=== PATIENT | female | born 1960 | race Caucasian/White ===

== ENCOUNTER 2017-03-03 23:29 | Inpatient (IN) | payer MEDICARE, MEDICAID ==
[~2017-03-03] VITALS: Ht 182.9 cm; Wt 153.3 kg
[~2017-03-03 23:29] MED LIST: AMBI10TA PO; ASPI81 PO; CARD240C6 PO; CELL500T PO; FAMO1TAB36 PO; FLUTI44I INH; HUMA100I SC; HYDR-3533 PO; INSU100V2 SQ; LORA-474 PO; METO100T PO; NEOR100 PO; OS-CTAB3 PO; POTA-243 PO; PRED5 PO; RANI150T PO; SALM50I INH; SERT100 PO; SIMV20 PO; TAB-TAB PO; THEOPHYLLINE PO; VENTAER INH; Z.0.OXYGEN INH
[2017-03-03 23:31] VITALS: BP 181/102; PULSE 58; RESP 18; TEMP 98.6; O2SAT 100
[2017-03-03 23:40] VITALS: RESP 18; O2SAT 96
[2017-03-03] MEDS ORDERED: SODIUM CHLORIDE 0.9% FLUSH 10 ML FLUSH IV FLUSH PRN (23:45)
--- NOTE | 2017-03-03 23:56 | PD ---
HPI Chief Complaint: Flank/Kidney Pain Time Seen by Provider: 23:47 Travel History International Travel<30 days: No Contact w/Intl Traveler<30days: No Traveled to known affect area: No History of Present Illness HPI 56-year-old female with history of renal transplant, rheumatoid arthritis, previous cholecystectomy, hypertension, multiple medical issues, presents to the ER today for 1 day history of right flank pains that she currently states that 10 out of 10. She states this started on its own and she has been nauseous. She denies any fevers, vomiting, diarrhea, urinary symptoms, or any other issues. Modifying Factors: None Associated Signs & Symptoms: Right flank pain Risk Factors: Renal transplant PFSH Past Medical History Arthritis: Yes (BACK) Asthma: Yes Autoimmune Disease: Yes (KIDNEY TRANSPLANT) Blood Disorders: No Anxiety: No Depression: Yes Heart Rhythm Problems: No Cancer: No Cardiovascular Problems: Yes High Cholesterol: Yes Chemotherapy: No Chest Pain: No Congestive Heart Failure: No COPD: No Diabetes: Yes Endocrine: Yes Glaucoma: No Genitourinary: Yes Hypertension: Yes Kidney Stones: No Musculoskeletal: Yes Neurologic: No Psychiatric: Yes Reproductive: No Respiratory: Yes Myocardial Infarction: No Radiation Therapy: No Renal Failure: Yes (WITH KIDNEY TRANSPLANT IN 2000) Sleep Apnea: Yes Thyroid Disease: No : 2 Para: 1 Miscarriage: 1 Past Surgical History Abdominal Surgery: Yes (RIGHT KIDNEY TRANSPLANT) AICD: No Cardiac Surgery: Yes (HEART CATHS) Section: Yes Cholecystectomy: Yes Ear Surgery: No Endocrine Surgery: No Eye Surgery: Yes (2001 CATARACTS BOTH EYES) Genitourinary Surgery: No Gynecologic Surgery: Yes (RIGHT KIDNEY TRANSPLANT) Neurologic Surgery: Yes (BACK LUM EVANS ) Oral Surgery: No Pacemaker: No Thoracic Surgery: No Tonsillectomy: Yes Other Surgery: Yes (KIDNEY TRANSPLANT) Social History Alcohol Use: Yes (SOCIALLY) Tobacco Use: No Substance Use: No Allergies-Medications (Allergen,Severity, Reaction): Coded Allergies: Adhesives (Verified Allergy, Severe, SILK TAPE, 03/03/17) Uncoded Allergies: SILK TAPE (Allergy, Mild, 03/19/05) NSAIDS (Adverse Reaction, Severe, 06/21/10) CANNOT TAKE THEM WITH KIDNEY TRANSPLANT Reported Meds & Prescriptions Reported Meds & Active Scripts Active Reported Flovent Hfa 10.6 GM Inh (Fluticasone Propionate) 44 Mcg/Act Inh 2 Puff INH BID Use daily at the same time. Serevent Diskus Inh (Salmeterol Xinafoate) 50 Mcg/Act Aero 50 Mcg INH BID Ventolin Hfa 18 GM Inh (Albuterol Sulfate) 90 Mcg/Act Aer 2 Puff INH Q4H PRN Fish Oil 1,000 mg Softgel ([place]-3 Fatty Acids/Fish Oil) 1 Each Capsule Magnesium 400 Mg Tab 400 Mg PO HS Lasix (Furosemide) 20 Mg Tab 20 Mg PO DAILY Potassium Chloride ER (Potassium Chloride) 20 Meq Tab 20 Meq PO DAILY Calcium 500 + Vit D Caplet (Calcium Carbonate/Vitamin D3) 1 Each Tablet Womens Daily Formula (Multiple Vitamins W/ Minerals) 1 Tab Tab Aspir-81 (Aspirin) 81 Mg Tabdr Zocor (Simvastatin) 20 Mg Tab 20 Mg PO HS Cardizem CD 24 HR (Diltiazem CD 24 HR) 240 Mg Caper 240 Mg PO HS Pepcid (Famotidine) 20 Mg Tab 20 Mg PO BID Lopressor (Metoprolol Tartrate) 50 Mg Tab 50 Mg PO BID Zoloft (Sertraline HCl) 100 Mg Tab 100 Mg PO BID Prednisone 5 Mg Tab 5 Mg PO DAILY Cellcept (Mycophenolate Mofetil) 500 Mg Tab 500 Mg PO BID Neoral (Cyclosporine (Modified)) 100 Mg Cap 125 Mg PO Humulin N Inj (Insulin Human NPH) 1,000 Unit/10 Ml Vial 35 Units SQ Humalog Inj (Insulin Human Lispro) 1,000 Unit/10 Ml Vial 30 Units SQ TIDAC Review of Systems Except as stated in HPI: all other systems reviewed are Neg Physical Exam Narrative GENERAL: Well-developed obese middle age white female patient currently in moderate distress. Awake and oriented 3. SKIN: Focused skin assessment warm/dry. HEAD: Atraumatic. Normocephalic. EYES: Pupils equal and round. No scleral icterus. No injection or drainage. ENT: No nasal bleeding or discharge. Mucous membranes pink and moist. NECK: Trachea midline. No JVD. CARDIOVASCULAR: Regular rate and rhythm. No murmur appreciated. RESPIRATORY: No accessory muscle use. Clear to auscultation. Breath sounds equal bilaterally. GASTROINTESTINAL: Abdomen soft, non-tender, nondistended. Hepatic and splenic margins not palpable. BACK: Right CVA tenderness. No rash. No point tenderness on palpation of the spine. MUSCULOSKELETAL: No obvious deformities. No clubbing. No cyanosis. No edema. NEUROLOGICAL: Awake and alert. No obvious cranial nerve deficits. Motor grossly within normal limits. Normal speech. PSYCHIATRIC: Appropriate mood and affect; insight and judgment normal. Data Data Last Documented VS Vital Signs Date Time Temp Pulse Resp B/P Pulse Ox O2 Delivery O2 Flow Rate FiO2 03/04/17 01:26 59 18 161/71 98 Room Air 03/03/17 23:31 98.6 Orders Complete Blood Count With Diff (03/03/17 23:38) Comprehensive Metabolic Panel (03/03/17 23:38) Urinalysis - C+S If Indicated (03/03/17 23:38) Iv Access Insert/Monitor (03/03/17 23:38) Ecg Monitoring (03/03/17 23:38) Oximetry (03/03/17 23:38) Sodium Chloride 0.9% Flush (Ns Flush) (03/03/17 23:45) Sodium Chlorid 0.9% 500 Ml Inj (Ns 500 M (03/04/17 00:00) Ondansetron Inj (Zofran Inj) (03/04/17 00:00) Hydromorphone Pf Inj (Dilaudid Pf Inj) (03/04/17 00:00) Ct Abd/Pel W/O Iv Contrast (03/04/17 00:22) Hydromorphone Pf Inj (Dilaudid Pf Inj) (03/04/17 03:00) Labs Laboratory Tests Test 03/03/17 23:48 White Blood Count 12.3 TH/MM3 Red Blood Count 3.09 MIL/MM3 Hemoglobin 8.8 GM/DL Hematocrit 26.8 % Mean Corpuscular Volume 86.6 FL Mean Corpuscular Hemoglobin 28.6 PG Mean Corpuscular Hemoglobin 33.0 % Concent Red Cell Distribution Width 13.1 % Platelet Count 224 TH/MM3 Mean Platelet Volume 7.8 FL Neutrophils (%) (Auto) 79.2 % Lymphocytes (%) (Auto) 11.2 % Monocytes (%) (Auto) 7.5 % Eosinophils (%) (Auto) 1.2 % Basophils (%) (Auto) 0.9 % Neutrophils # (Auto) 9.7 TH/MM3 Lymphocytes # (Auto) 1.4 TH/MM3 Monocytes # (Auto) 0.9 TH/MM3 Eosinophils # (Auto) 0.1 TH/MM3 Basophils # (Auto) 0.1 TH/MM3 CBC Comment DIFF FINAL Differential Comment Sodium Level 140 MEQ/L Potassium Level 4.6 MEQ/L Chloride Level 105 MEQ/L Carbon Dioxide Level 29.8 MEQ/L Anion Gap 5 MEQ/L Blood Urea Nitrogen 49 MG/DL Creatinine 2.20 MG/DL Estimat Glomerular Filtration 23 ML/MIN Rate Random Glucose 85 MG/DL Calcium Level 9.3 MG/DL Total Bilirubin 0.2 MG/DL Aspartate Amino Transf 6 U/L (AST/SGOT) Alanine Aminotransferase 13 U/L (ALT/SGPT) Alkaline Phosphatase 92 U/L Total Protein 7.0 GM/DL Albumin 3.1 GM/DL MDM Medical Decision Making Medical Screen Exam Complete: Yes Emergency Medical Condition: Yes Medical Record Reviewed: Yes Interpretation(s) Laboratory Tests Test 03/03/17 23:48 White Blood Count 12.3 TH/MM3 (4.0-11.0) Red Blood Count 3.09 MIL/MM3 (4.00-5.30) Hemoglobin 8.8 GM/DL (11.6-15.3) Hematocrit 26.8 % (35.0-46.0) Neutrophils (%) (Auto) 79.2 % (16.0-70.0) Neutrophils # (Auto) 9.7 TH/MM3 (1.8-7.7) Blood Urea Nitrogen 49 MG/DL (7-18) Creatinine 2.20 MG/DL (0.50-1.00) Estimat Glomerular Filtration 23 ML/MIN (>89) Rate Aspartate Amino Transf 6 U/L (15-37) (AST/SGOT) Albumin 3.1 GM/DL (3.4-5.0) Last 24 hours Impressions Abdomen/Pelvis CT 03/04/17 0022 Signed Impressions: Service Date/Time: Saturday, March 04, 2017 01:39 - CONCLUSION: Multiple masses throughout both the [place] kidneys and the transplant kidney. The density of the mass in the right [place] kidney is concerning for a solid mass. An outpatient renal ultrasound is recommended. Unremarkable bowel gas pattern without obvious etiology for abdominal pain. Cam Cristina MD Differential Diagnosis Right flank painsrenal colic versus pyelonephritis versus gastroenteritis versus musculoskeletal versus other acute intra-abdominal processes Narrative Course Lab work shows worsening renal function. She was given Dilaudid and IV fluids and Zofran in the ER. On reevaluation at 3 AM, she is complaining worsening pain and was given a second dose of Dilaudid. Her CAT scan is showing masses in both [place] kidneys and the transplant kidney. There is concern that the renal function may be worsening secondary to this issue as well and this is likely the cause of her pain. At this point, case has been discussed with Dr. Castano for admission as an observation for further treatment and pain control. Diagnosis Primary Impression: Bilateral renal masses Additional Impression: Renal mass of kidney transplant Admitting Information Admitting Physician Requests: Admit Kenny May MD Mar 03, 2017 23:55
[2017-03-04] VITALS (7 sets, daily range): BP systolic 153–197; BP diastolic 70–80; PULSE 50–63; RESP 18–20; TEMP 96.9–98.9; O2SAT 94–100
[2017-03-04] MEDS ORDERED: SODIUM CHLORID 0.9% 500 ML INJ 500 ML IV ONE
[2017-03-04] MEDS ORDERED: ONDANSETRON HCL 4 MG/2 ML VIAL IV PUSH ONE
[2017-03-04 00:04] LABS: AUTOMATED NEUTROPHIL # 9.7 TH/MM3 (1.8-7.7); BASOPHIL # 0.1 TH/MM3 (0-0.2); BASOPHIL % 0.9 % (0.0-2.0); EOSINOPHIL # 0.1 TH/MM3 (0-0.4); EOSINOPHIL % 1.2 % (0.0-4.0); HEMATOCRIT 26.8 % (35.0-46.0); HEMO FLAGS DIFF FINAL; LYMPH % 11.2 % (9.0-44.0); LYMPHOCYTE # 1.4 TH/MM3 (1.0-4.8); MEAN CELL VOLUME 86.6 FL (80.0-100.0); MEAN CORPUSCULAR HEMOGLOBIN 28.6 PG (27.0-34.0); MONO % 7.5 % (0.0-8.0); NEUT % 79.2 % (16.0-70.0); PLATELET COUNT 224 TH/MM3 (150-450); RED BLOOD COUNT 3.09 MIL/MM3 (4.00-5.30); RED CELL DISTRIBUTION WIDTH 13.1 % (11.6-17.2); WHITE BLOOD COUNT 12.3 TH/MM3 (4.0-11.0)
[2017-03-04] MEDS ORDERED: SALM50I INH (00:09)
[2017-03-04] MEDS ORDERED: OMEG1CAP73 (00:09)
[2017-03-04] MEDS ORDERED: INSU100V3 SQ (00:09)
[2017-03-04] MEDS ORDERED: CALCTAB25 (00:09)
[2017-03-04] MEDS ORDERED: FLUTI44I INH (00:09)
[2017-03-04] MEDS ORDERED: CARD240C6 PO (00:09)
[2017-03-04] MEDS ORDERED: NEOR100 PO (00:09)
[2017-03-04] MEDS ORDERED: PRED5TAB PO (00:09)
[2017-03-04] MEDS ORDERED: FAMO1TAB37 PO (00:09)
[2017-03-04] MEDS ORDERED: METO-309 PO (00:09)
[2017-03-04] MEDS ORDERED: FURO1TAB62 PO (00:09)
[2017-03-04] MEDS ORDERED: ASPI81TA81 (00:09)
[2017-03-04] MEDS ORDERED: WOMETAB2 (00:09)
[2017-03-04] MEDS ORDERED: VENTAER INH (00:09)
[2017-03-04] MEDS ORDERED: MYCO500 PO (00:09)
[2017-03-04] MEDS ORDERED: POTA-163 PO (00:09)
[2017-03-04] MEDS ORDERED: ZOLO100T PO ×2 (00:09→10:00)
[2017-03-04] MEDS ORDERED: HUMALOG SQ (00:09)
[2017-03-04] MEDS ORDERED: ZOCO20TA PO (00:09)
[2017-03-04] MEDS ORDERED: MAGN1TAB14 PO (00:09)
[2017-03-04 00:19] LABS: ALT (GPT) 13 U/L (10-53); ANION GAP 5 MEQ/L (5-15); AST (GOT) 6 U/L (15-37); BICARBONATE 29.8 MEQ/L (21.0-32.0); BLOOD UREA NITROGEN 49 MG/DL (7-18); CHLORIDE 105 MEQ/L (98-107); GLOMERULAR FILTRATION RATE 23 ML/MIN (>89); POTASSIUM 4.6 MEQ/L (3.5-5.1); SODIUM (NA) 140 MEQ/L (136-145)
[2017-03-04 00:21] LABS: ALKALINE PHOSPHATASE 92 U/L (45-117); TOTAL BILIRUBIN ADULT 0.2 MG/DL (0.2-1.0)
--- NOTE | 2017-03-04 02:15 | RADRPT ---
EXAM DATE/TIME: 03/04/2017 01:39 [facility] COMPARISON: CT ABDOMEN & PELVIS W/O CONTRAST, June 18, 2010, 6:37. INDICATIONS : Abdominal pain. ORAL CONTRAST: No oral contrast ingested. RADIATION DOSE: 31.70 CTDIvol (mGy) ; Patient body habitus; Patient motion; Patient positioning MEDICAL HISTORY : Hypertension. SURGICAL HISTORY : Renal transplant. ENCOUNTER: Initial ACUITY: 1 day PAIN SCALE: 8/10 LOCATION: abdomen TECHNIQUE: Volumetric scanning of the abdomen and pelvis was performed. Using automated exposure control and ad justment of the mA and/or kV according to patient size, radiation dose was kept as low as reasonably achievable to obtain optimal diagnostic quality images. DICOM format image data is available electro nically for review and comparison. FINDINGS: LOWER LUNGS: The visualized lower lungs are clear. LIVER: Homogeneous density without lesion. There is no dilation of the biliary tree. Status post cholecyste ctomy. SPLEEN: Normal size without lesion. PANCREAS: Within normal limits. KIDNEYS: Both of the [place] kidneys are small and atrophic. Questional solid mass arising from the anterior as pect of the right kidney measuring 5.1 x 5.4 cm. Some nodularity of the left renal cortex could also be a solid mass. There is a prominent possible cyst in the transplant kidney. There is no evidence of hydronephrosis of the transplant. ADRENAL GLANDS: Within normal limits. VASCULAR: There is no aortic aneurysm. BOWEL/MESENTERY: The stomach, small bowel, and colon demonstrate no acute abnormality. There is no free intraperitone al air or fluid. ABDOMINAL WALL: Within normal limits. RETROPERITONEUM: There is no lymphadenopathy. BLADDER: No wall thickening or mass. REPRODUCTIVE: Lobulated uterus presumably leiomyoma INGUINAL: There is no lymphadenopathy or hernia. MUSCULOSKELETAL: Within normal limits for patient age. CONCLUSION: Multiple masses throughout both the [place] kidneys and the transplant kidney. The density of the mass in the right [place] kidney is concerning for a solid mass. An outpatient renal ultrasound is recomme nded. Unremarkable bowel gas pattern without obvious etiology for abdominal pain. Cam Cristina MD on March 04, 2017 at 2:10 Board Certified Radiologist. This report was verified electronically.
[2017-03-04] MEDS ORDERED: MAGNESIUM HYDROXIDE SUSP 30 ML CUP PO PRN (03:00)
[2017-03-04] MEDS ORDERED: SODIUM CHLORIDE 0.9% FLUSH 10 ML FLUSH IV FLUSH PRN (03:00)
[2017-03-04] MEDS ORDERED: BISACODYL 10 MG SUPP RECTAL PRN (03:00)
[2017-03-04] MEDS ORDERED: ACETAMINOPHEN/HYDROcodone 325 MG/5 MG TAB PO PRN (03:00)
[2017-03-04] MEDS ORDERED: ONDANSETRON HCL 4 MG/2 ML VIAL IVP PRN (03:00)
[2017-03-04] MEDS ORDERED: ACETAMINOPHEN 325 MG TAB PO PRN (03:00)
[2017-03-04] MEDS ORDERED: HYDROmorphone HCL PF 1 MG/ML VIAL IV PUSH ONE ×2 (03:00)
[2017-03-04] MEDS ORDERED: SENNOSIDES 8.6 MG TAB PO PRN (03:00)
[2017-03-04] MEDS ORDERED: DEXTROSE 50% IN WATER 50 ML VIAL(D50) IV PRN (03:00)
[2017-03-04] MEDS ORDERED: GLUCAGON 1 MG/ML VIAL OTHER PRN (03:00)
[2017-03-04] MEDS ORDERED: LACTULOSE SYRUP 20 GM/30 ML CUP PO PRN (03:00)
[2017-03-04] MEDS ORDERED: ALBUTEROL SULFATE 90 MCG/ACT HFA 18 GM INHALER INH PRN (03:30)
[2017-03-04 03:41] LABS: BACTERIA, URINE MOD /hpf; BLOOD, URINE SMALL (NEG); COMMENT (UR) CULTURE INDICATED; CULTURE IF INDICATED CULTURE INDICATED; GLUCOSE,URINE NEG (NEG); HYALINE CAST, URINE 2 /lpf (RARE); KETONE, URINE NEG (NEG); NITRITE,URINE NEG (NEG); PH, URINE 5.5 (5.0-8.5); SQUAMOUS EPITHELIAL CELL URINE <1 /hpf (0-5); URINE COLOR LIGHT-YELLOW (YELLW/STRAW)
[2017-03-04] MEDS: SODIUM CHLOR 0.9% 1000 ML INJ 1,000 ML IV SCH ×3 (03:56→22:55)
--- NOTE | 2017-03-04 04:13 | HHI.HP ---
[facility] Service [facility] Primary Care Physician Iván Becerra MD Admission Diagnosis dehydration/renal masses/intractable abdominal pain Diagnoses: (1) Intractable pain Diagnosis: Principal (2) Bilateral renal masses Diagnosis: Principal (3) EDITH (acute kidney injury) Diagnosis: Principal (4) H/O kidney transplant Diagnosis: Principal (5) Leukocytosis Diagnosis: Principal (6) HTN (hypertension) Diagnosis: Principal (7) Anemia Diagnosis: Principal (8) UTI (urinary tract infection) Diagnosis: Principal Travel History International Travel<30 Days: No Contact w/Intl Traveler <30 Da: No Traveled to Known Affected Are: No History of Present Illness This is a 56-year-old female with a PMH of Lupus, Depression, Rheumatoid Arthritis, HTN and h/o Renal Transplant who presented to the ER with complaints of severe right-sided flank pain x1 day. Denies fever, chills, nausea, vomiting , diarrhea or urinary symptoms. On arrival, BP 181/102, HR 58, O2 sat 100% on RA, Afebrile. WBC 12.3. Hemoglobin 8.8, previously 11.2 on 09/05/15. Creatinine 2.20, previously 1.46 on 09/05/15. UA with UTI. CT Abd/Pelvis w/ multiple masses Trop both [place] kidneys and transplant kidney, density of mass and right [place] kidney concerning for solid mass, renal ultrasound recommended. S/p multiple doses of IV Dilaudid in ER w/ minimal improvement in pain complaints. Follows w/ Dr. Velez as outpatient. Review of Systems Except as stated in HPI: all other systems reviewed are Neg ROS: 14 point review of systems otherwise negative. Past Family Social History Past Medical History PMH: Lupus, Depression, Rheumatoid Arthritis, HTN and h/o Renal Transplant Past Surgical History PAST SURGICAL HISTORY: Renal Transplant, , Cholecystectomy, Bilateral Cataract Surgery, Lumbar Laminectomy, Tonsillectomy Allergies: Coded Allergies: Adhesives (Verified Allergy, Severe, SILK TAPE, 03/03/17) Uncoded Allergies: SILK TAPE (Allergy, Mild, 03/19/05) NSAIDS (Adverse Reaction, Severe, 06/21/10) CANNOT TAKE THEM WITH KIDNEY TRANSPLANT Family History PAST FAMILY HISTORY: Reviewed. No h/o DM or CAD Social History PAST SOCIAL HISTORY: Occasional alcohol. Negative for tobacco or drugs. Physical Exam Vital Signs Vital Signs Date Time Temp Pulse Resp B/P Pulse Ox O2 Delivery O2 Flow Rate FiO2 03/04/17 01:26 59 18 161/71 98 Room Air 03/03/17 23:40 18 96 Room Air 03/03/17 23:31 98.6 58 18 181/102 100 Physical Exam PE: GENERAL: Middle-aged female in no acute distress. HEENT: PERRLA, EOMI. No scleral icterus or conjunctival pallor. No lid lag or facial droop. CARDIOVASCULAR: Regular rate and rhythm. No obvious murmurs to auscultation. No chest tenderness to palpation. RESPIRATORY: No obvious rhonchi or wheezing. Clear to auscultation. Breath sounds equal bilaterally. GASTROINTESTINAL: Abdomen soft, right flank tenderness to palpation, nondistended. BS normal. MUSCULOSKELETAL: Extremities without clubbing, cyanosis, or edema. No obvious deformities. NEUROLOGICAL: Awake, alert and oriented x4. No focal neurologic deficits. Moving both upper and lower extremities spontaneously. Laboratory Laboratory Tests Test 03/03/17 03/04/17 23:48 02:58 White Blood Count 12.3 Red Blood Count 3.09 Hemoglobin 8.8 Hematocrit 26.8 Mean Corpuscular Volume 86.6 Mean Corpuscular Hemoglobin 28.6 Mean Corpuscular Hemoglobin 33.0 Concent Red Cell Distribution Width 13.1 Platelet Count 224 Mean Platelet Volume 7.8 Neutrophils (%) (Auto) 79.2 Lymphocytes (%) (Auto) 11.2 Monocytes (%) (Auto) 7.5 Eosinophils (%) (Auto) 1.2 Basophils (%) (Auto) 0.9 Neutrophils # (Auto) 9.7 Lymphocytes # (Auto) 1.4 Monocytes # (Auto) 0.9 Eosinophils # (Auto) 0.1 Basophils # (Auto) 0.1 CBC Comment DIFF FINAL Differential Comment Sodium Level 140 Potassium Level 4.6 Chloride Level 105 Carbon Dioxide Level 29.8 Anion Gap 5 Blood Urea Nitrogen 49 Creatinine 2.20 Estimat Glomerular Filtration 23 Rate Random Glucose 85 Calcium Level 9.3 Total Bilirubin 0.2 Aspartate Amino Transf 6 (AST/SGOT) Alanine Aminotransferase 13 (ALT/SGPT) Alkaline Phosphatase 92 Total Protein 7.0 Albumin 3.1 Urine Color LIGHT-YELLOW Urine Turbidity CLEAR Urine pH 5.5 Urine Specific [place] 1.012 Urine Protein 100 Urine Glucose (UA) NEG Urine Ketones NEG Urine Occult Blood SMALL Urine Nitrite NEG Urine Bilirubin NEG Urine Urobilinogen LESS THAN 2.0 Urine Leukocyte Esterase LARGE Urine RBC 5 Urine WBC 14 Urine Squamous Epithelial <1 Cells Urine Bacteria MOD Urine Hyaline Casts 2 Microscopic Urinalysis Comment CULTURE INDICATED Date/Time Procedure Status Source Growth 03/04/17 02:58 Urine Culture Received Urine Random Urine Pending Result Diagram: 03/03/17234703/03/172347 Assessment and Plan Problem List: (1) Intractable pain ICD Code: R52 Status: Acute (2) Bilateral renal masses ICD Code: N28.89 Status: Acute (3) H/O kidney transplant ICD Code: Z94.0 Status: Acute (4) UTI (urinary tract infection) ICD Code: N39.0 Status: Acute (5) EDITH (acute kidney injury) ICD Code: N17.9 Status: Acute (6) Anemia ICD Code: D64.9 Status: Acute (7) HTN (hypertension) ICD Code: I10 Status: Acute (8) Leukocytosis ICD Code: D72.829 Status: Acute Assessment and Plan A/P: 1. Intractable Flank Pain: c/o acute onset of right flank pain x1 day, CT Abd/ Pelvis w/ multiple renal masses, right solid mass, likely etiology of pain complaints. S/p Dilaudid IV in ER, will continue w/ analgesics/antiemetics as needed. 2. Renal Masses: Bilateral. CT Abd/Pelvis as above w/ bilateral renal masses in [place] and transplant kidney, right-sided solid mass w/ recommendation for Renal US, images reviewed by me. Continue w/ treatment as above. Check Renal US. Consult Dr. Velez w/ whom she follows for further eval. 3. H/o Renal Transplant: on chronic immunosuppressant therapy, continue home medications. 4. UTI: U/a w/ UTI, start IV Rocephin, follow up cultures. 5. EDITH: Acute on Chronic. Creatinine 2.20, previously 1.46 and 09/05/15. UA positive for UTI. IVF for hydration, repeat labs in a.m. 6. Anemia: Hgb 8.8, previously 11.2 on 1/30/16, will monitor, repeat labs in am, transfuse for Hgb <7. 7. HTN: BP 160-180's, likely compounded by pain complaints, will continue home medications, monitor BP. 8. DVT Prophylaxis: SCD/Teds. 9. Social work for d/c planning as needed. 10. Case discussed w/ ER physician at length. Nathaly Castano MD Mar 04, 2017 04:13
[2017-03-04] MEDS: cefTRIAXone INJ 1,000 MG in SODIUM CHLORIDE 0.9% INJ 100 ML IV SCH (04:20)
[2017-03-04] MEDS: INSULIN ASPART SUPPLEMENTAL SCALE SQ SCH ×4 (07:00→21:00)
[2017-03-04] MEDS: MYCOPHENOLATE MOFETIL 500 MG TAB PO SCH ×2 (08:02→17:24)
--- NOTE | 2017-03-04 08:24 | RADRPT ---
EXAM DATE/TIME: 03/04/2017 07:40 [facility] COMPARISON: No previous studies available for comparison. INDICATIONS : Renal mass seen on CT. MEDICAL HISTORY : Hypertension. Hypercholesterolemia. Cataract. Asthma. Renal failure. Arthr itis. Diabetes. SURGICAL HISTORY : Tonsillectomy. section. Cholecystectomy. Heart catheter. Kidney trans plant. Bilateral feet surgery. Back surgery. ENCOUNTER: Initial ACUITY: > 1 year PAIN SCORE: 6/10 LOCATION: Bilateral flank MEASUREMENTS: RIGHT KIDNEY: 8.7 x 5.3 x 4.2 cm FINDINGS: The mass in the upper pole of the right kidney is complex. Patient has a renal transplant. CT scan had suggested a solid mass in the upper pole of the [place] right kidney. There is indeed a complex 5 cm mass upper pole of the right kidney that is nonspecific by ultrasound. The left kidney is poorly seen. The transplant kidney contains a cyst laterally as well as a second cyst in the upper pole of the [place]. CONCLUSION: Inconclusive ultrasound. Mass in the [place] kidney on the right is suspicious. This could be confir med with an MRI without contrast. Sherif Diaz MD FACR on March 04, 2017 at 8:18 Board Certified Radiologist. This report was verified electronically.
[2017-03-04] MEDS: FLUTICASONE PROPIONATE 44 MCG/ACT 10.6 GM INHALER INH SCH ×2 (09:00→21:36)
[2017-03-04] MEDS: SALMETEROL XINAFOATE 50 MCG DISKUS INH SCH ×2 (09:00→21:36)
[2017-03-04] MEDS: HYDROmorphone HCL PF 1 MG/ML VIAL IV PRN ×2 (09:26→16:48)
[2017-03-04] MEDS: SODIUM CHLORIDE 0.9% FLUSH 10 ML FLUSH IV FLUSH SCH ×2 (09:28→22:34)
[2017-03-04] MEDS: METOPROLOL TARTRATE 50 MG TAB PO SCH ×2 (09:28→21:00)
[2017-03-04] MEDS: predniSONE 5 MG TAB PO SCH (09:28)
[2017-03-04] MEDS: SERTRALINE HCL 100 MG TAB PO SCH ×2 (09:29→21:00)
[2017-03-04] MEDS: FAMOTIDINE 20 MG TAB PO SCH ×2 (09:29→21:38)
[2017-03-04] MEDS: DOCUSATE SODIUM 50 MG/SENNA 8.6 MG TAB PO SCH ×2 (09:29→21:37)
--- NOTE | 2017-03-04 09:29 | HHI.PR ---
Addendum to Inpatient Note Addendum Reason: Additional Documentation Additional Information Pt tells me that she is having pain right now and it starting to get worst. Pain meds helping. had mild nausea last night but none this morning. no CP/SOB On exam; morbidely obese, hirsutism noted, HR RRR w no obvious murmurs, lungs were clear. Abdomen soft, no obvious CVA tenderness but some discomfort w palpation on the right flank. move extremities. 1. Intractable Flank Pain: c/o acute onset of right flank pain x1 day, CT Abd/ Pelvis w/ multiple renal masses, right solid mass, likely etiology of pain complaints. S/p Dilaudid IV in ER, adjusted po pain meds w combination of IV dilaudid for breakthrough pain. 2. Renal Masses: Bilateral. CT Abd/Pelvis as above w/ bilateral renal masses in [place] and transplant kidney, right-sided solid mass w/ recommendation for Renal US, Report for renal u/s currently in draft however recommendations are to get an MRI without contrast which I have ordered. Nephrology already consulted. 3. H/o Renal Transplant: on chronic immunosuppressant therapy, continue home medications. 4. UTI: U/a w/ UTI, on IV Rocephin, follow up cultures. 5. EDITH: Acute on Chronic. Creatinine 2.20, previously 1.46 and 09/05/15. UA positive for UTI. IVF for hydration, repeat labs in a.m. 6. Anemia: Hgb 8.8, previously 11.2 on 09/05/15, will monitor, repeat labs in am, transfuse for Hgb <7. 7. HTN: BP 160-180's, most likely secondary to pain, will continue home medications, monitor BP. Ayana Nicholson MD Mar 04, 2017 09:29
[2017-03-04] MEDS ORDERED: METO100T PO (10:00)
[2017-03-04] MEDS ORDERED: LORazepam 2 MG/ML VIAL IV PUSH ONE (10:45)
--- NOTE | 2017-03-04 12:23 | RADRPT ---
EXAM DATE/TIME: 03/04/2017 11:28 [facility] COMPARISON: CT ABDOMEN & PELVIS W/O CONTRAST, March 04, 2017, 1:39. CT ABDOMEN & PELVIS W /O CONTRAST, June 18, 2010, 6:37. INDICATIONS : Renal mass. MEDICAL HISTORY : Cardiovascular disease Diabetes mellitus type 2. SURGICAL HISTORY : Cholecystectomy. section. Discectomy, lumbar. Renal transplant. ENCOUNTER: Initial ACUITY: 1 day PAIN SCORE: 0/10 LOCATION: Abdomen TECHNIQUE: Multiplanar, multisequence magnetic resonance imaging of the abdomen was performed wit hout contrast. FINDINGS: Patient has a renal transplant. There is a complex mass upper pole of the right kidney measuring 5.7 cm with both cystic and solid elements. This is associated with multiple other small cysts. Cystic renal cell carcinomas do occur but are rare. Multiple cysts are seen in a small left kidney the largest measuring 3.2 cm, some of which contain he morrhage. Transplant is seen in the pelvis and contains a 4.25 cm cyst. There is no abdominal adenopathy. There is no ascites evident. CONCLUSION: Complex mass upper pole of the right kidney, indeterminate renal cell carcinoma. This is new from th e most recent comparison study. If there are no intervening studies evident, options for further wor kup include contrasted MRI which does require consenting given the altered renal function as well as biopsy. Sherif Diaz MD FACR on March 04, 2017 at 12:11 Board Certified Radiologist. This report was verified electronically.
[2017-03-04] MEDS: cloNIDine HCL 0.1 MG TAB PO PRN (14:16)
[2017-03-04] MEDS: ACETAMINOPHEN/HYDROcodone 325 MG/10 MG TAB PO PRN (14:21)
[2017-03-04] MEDS: hydrALAZINE HCL 10 MG TAB PO PRN (16:48)
--- NOTE | 2017-03-04 19:13 | PD.CONS ---
[facility] Service Nephrology Consult Requested By Reason for Consult Kidney transplant Primary Care Physician Iván Becerra MD History of Present Illness Patient is a 56-year-old white female who has history of kidney transplant from her she states it was in 2000 she is on cyclosporine, prednisone, CellCept she came in with right flank pain and had the creatinine of 2.2 baseline creatinine runs around 1.46, She had MRIs showing a complex cystic and solid the mass in the right [place] kidney and cyst on other kidney left and transplant kidney as well, she has underlying history of lupus Follows with Dr. Velez She was given Dilaudid and she is very groggy Review of Systems ROS Limitations: Clinical Condition Past Family Social History Allergies: Coded Allergies: Adhesives (Verified Allergy, Severe, SILK TAPE, 03/03/17) Uncoded Allergies: SILK TAPE (Allergy, Mild, 03/19/05) NSAIDS (Adverse Reaction, Severe, 06/21/10) CANNOT TAKE THEM WITH KIDNEY TRANSPLANT Past Medical History Lupus Kidney transplant Hypertension Obesity Past Surgical History Renal Transplant Cholecystectomy Bilateral Cataract Surgery Lumbar Laminectomy Tonsillectomy Reported Medications Reported Meds & Active Scripts Active Reported Metoprolol Tartrate 100 Mg Tab 100 Mg PO BID Zoloft (Sertraline HCl) 100 Mg Tab 200 Mg PO BID Flovent Hfa 10.6 GM Inh (Fluticasone Propionate) 44 Mcg/Act Inh 2 Puff INH BID Use daily at the same time. Serevent Diskus Inh (Salmeterol Xinafoate) 50 Mcg/Act Aero 50 Mcg INH BID Ventolin Hfa 18 GM Inh (Albuterol Sulfate) 90 Mcg/Act Aer 2 Puff INH Q4H PRN Fish Oil 1,000 mg Softgel ([place]-3 Fatty Acids/Fish Oil) 1 Each Capsule Magnesium 400 Mg Tab 400 Mg PO HS Lasix (Furosemide) 20 Mg Tab 20 Mg PO DAILY Potassium Chloride ER (Potassium Chloride) 20 Meq Tab 20 Meq PO DAILY Calcium 500 + Vit D Caplet (Calcium Carbonate/Vitamin D3) 1 Each Tablet Womens Daily Formula (Multiple Vitamins W/ Minerals) 1 Tab Tab Aspir-81 (Aspirin) 81 Mg Tabdr Zocor (Simvastatin) 20 Mg Tab 20 Mg PO HS Cardizem CD 24 HR (Diltiazem CD 24 HR) 240 Mg Caper 240 Mg PO HS Pepcid (Famotidine) 20 Mg Tab 20 Mg PO BID Prednisone 5 Mg Tab 5 Mg PO DAILY Cellcept (Mycophenolate Mofetil) 500 Mg Tab 500 Mg PO BID Neoral (Cyclosporine (Modified)) 100 Mg Cap 125 Mg PO Humulin N Inj (Insulin Human NPH) 1,000 Unit/10 Ml Vial 35 Units SQ Humalog Inj (Insulin Human Lispro) 1,000 Unit/10 Ml Vial 30 Units SQ TIDAC Active Ordered Medications Current Medications Medications (Trade) Dose Ordered Sig/Nadir Route Start Time Stop Time Status Last Admin (NS Flush) 2 ml UNSCH PRN IV FLUSH 03/03/17 23:45 (D50w (Vial) Inj) 50 ml UNSCH PRN IV 03/04/17 03:00 Glucagon 1 mg 1 mg UNSCH PRN OTHER 03/04/17 03:00 (NS 1000 ml Inj) 1,000 ml @ 100 mls/hr Q10H IV 03/04/17 02:55 03/04/17 03:56 (NS Flush) 2 ml UNSCH PRN IV FLUSH 03/04/17 03:00 (NS Flush) 2 ml BID IV FLUSH 03/04/17 09:00 03/04/17 09:28 (Zofran Inj) 4 mg Q6H PRN IVP 03/04/17 03:00 (Tylenol) 650 mg Q6H PRN PO 03/04/17 03:00 ([place] 5-325 Mg) 1 tab Q4H PRN PO 03/04/17 03:00 (Dilaudid Pf Inj) 1 mg Q3H PRN IV 03/04/17 03:00 03/04/17 16:48 (Samina-Colace) 1 tab BID PO 03/04/17 09:00 03/04/17 09:29 (Milk Of Magnesia Liq) 30 ml Q12H PRN PO 03/04/17 03:00 (Senokot) 17.2 mg Q12H PRN PO 03/04/17 03:00 (Dulcolax Supp) 10 mg DAILY PRN RECTAL 03/04/17 03:00 (Lactulose Liq) 30 ml DAILY PRN PO 03/04/17 03:00 (Ventolin Hfa Inh) 2 puff Q4H PRN INH 03/04/17 03:30 (Cardizem Cd) 240 mg HS PO 03/04/17 21:00 (Pepcid) 10 mg BID PO 03/04/17 09:00 03/04/17 09:29 (Flovent Hfa 44 Mcg Inh) 2 puff BID INH 03/04/17 09:00 (Mag-Ox) 400 mg HS PO 03/04/17 21:00 (Lopressor) 50 mg BID PO 03/04/17 09:00 03/04/17 09:28 (Cellcept) 500 mg Q12H PO 03/04/17 06:00 03/04/17 17:24 (Deltasone) 5 mg DAILY PO 03/04/17 09:00 03/04/17 09:28 (Serevent Diskus Inh) 50 mcg BID INH 03/04/17 09:00 (Zoloft) 100 mg BID PO 03/04/17 09:00 03/04/17 09:29 Pravastatin Sodium 40 mg 40 mg HS PO 03/04/17 21:00 (Rocephin Inj/NS Inj) 100 ml @ 200 mls/hr Q24H IV 03/04/17 04:00 03/04/17 04:20 ([place] 10-325 Mg) 1 tab Q6H PRN PO 03/04/17 10:00 03/04/17 14:21 (Apresoline) 10 mg Q6HR PRN PO 03/04/17 10:00 03/04/17 16:48 (Catapres) 0.1 mg Q6H PRN PO 03/04/17 10:00 03/04/17 14:16 Family History Noncontributory Social History Denies smoking or alcohol use Physical Exam Vital Signs Vital Signs Date Time Temp Pulse Resp B/P Pulse Ox O2 Delivery O2 Flow Rate FiO2 03/04/17 18:33 55 166/70 03/04/17 16:40 96.9 50 18 197/80 96 03/04/17 13:38 98.9 56 18 190/78 96 03/04/17 06:09 98.4 63 18 153/72 100 03/04/17 04:01 61 18 156/70 96 Nasal Cannula 2 03/04/17 01:26 59 18 161/71 98 Nasal Cannula 2 03/03/17 23:40 18 96 Room Air 03/03/17 23:31 98.6 58 18 181/102 100 Physical Exam GENERAL: Well-nourished, well-developed patient. SKIN: Warm and dry. HEAD: Normocephalic. EYES: No scleral icterus. No injection or drainage. NECK: Supple, trachea midline. No JVD or lymphadenopathy. CARDIOVASCULAR: Regular rate and rhythm without murmurs, gallops, or rubs. RESPIRATORY: Breath sounds equal bilaterally. No accessory muscle use. GASTROINTESTINAL: Abdomen soft, non-tender, nondistended. EXTREMITIES: No cyanosis, or edema. NEUROLOGICAL: Patient is drowsy and difficult to arouse she opens also goes back to sleep and I had difficult time getting any answers Laboratory Laboratory Tests Test 03/03/17 03/04/17 23:48 02:58 White Blood Count 12.3 Red Blood Count 3.09 Hemoglobin 8.8 Hematocrit 26.8 Mean Corpuscular Volume 86.6 Mean Corpuscular Hemoglobin 28.6 Mean Corpuscular Hemoglobin 33.0 Concent Red Cell Distribution Width 13.1 Platelet Count 224 Mean Platelet Volume 7.8 Neutrophils (%) (Auto) 79.2 Lymphocytes (%) (Auto) 11.2 Monocytes (%) (Auto) 7.5 Eosinophils (%) (Auto) 1.2 Basophils (%) (Auto) 0.9 Neutrophils # (Auto) 9.7 Lymphocytes # (Auto) 1.4 Monocytes # (Auto) 0.9 Eosinophils # (Auto) 0.1 Basophils # (Auto) 0.1 CBC Comment DIFF FINAL Differential Comment Sodium Level 140 Potassium Level 4.6 Chloride Level 105 Carbon Dioxide Level 29.8 Anion Gap 5 Blood Urea Nitrogen 49 Creatinine 2.20 Estimat Glomerular Filtration 23 Rate Random Glucose 85 Calcium Level 9.3 Total Bilirubin 0.2 Aspartate Amino Transf 6 (AST/SGOT) Alanine Aminotransferase 13 (ALT/SGPT) Alkaline Phosphatase 92 Total Protein 7.0 Albumin 3.1 Urine Color LIGHT-YELLOW Urine Turbidity CLEAR Urine pH 5.5 Urine Specific [place] 1.012 Urine Protein 100 Urine Glucose (UA) NEG Urine Ketones NEG Urine Occult Blood SMALL Urine Nitrite NEG Urine Bilirubin NEG Urine Urobilinogen LESS THAN 2.0 Urine Leukocyte Esterase LARGE Urine RBC 5 Urine WBC 14 Urine Squamous Epithelial <1 Cells Urine Bacteria MOD Urine Hyaline Casts 2 Microscopic Urinalysis Comment CULTURE INDICATED Date/Time Procedure Status Source Growth 03/04/17 02:58 Urine Culture Received Urine Random Urine Pending Result Diagram: 03/03/17 2348 03/03/17 2348 Imaging Last Impressions Abdomen/Pelvis CT 03/04/17 0022 Signed Impressions: Service Date/Time: Saturday, March 04, 2017 01:39 - CONCLUSION: Multiple masses throughout both the [place] kidneys and the transplant kidney. The density of the mass in the right [place] kidney is concerning for a solid mass. An outpatient renal ultrasound is recommended. Unremarkable bowel gas pattern without obvious etiology for abdominal pain. Cam Cristina MD Assessment and Plan Problem List: (1) H/O kidney transplant Plan: I agree with hydration and resume her cyclosporine I ordered one 125 mg, she is on diltiazem patient could not tell me how often she take the CSA, discussed with staff apparently she takes it is once a day, she is on prednisone and CellCept (2) Bilateral renal masses Plan: Right [place] kidney mass that is suspicious appearing with solid and cystic feature this should be referred to urology And this can be done as an outpatient follow with Dr. Velez (3) EDITH (acute kidney injury) Plan: Continue to monitor (4) Intractable pain Plan: She is getting Misha Islas MD Mar 04, 2017 19:13
[2017-03-04] MEDS ORDERED: cycloSPORINE 25 MG CAP PO ONE (20:00)
[2017-03-04] MEDS ORDERED: cycloSPORINE 100 MG CAP PO ONE (20:00)
[2017-03-04] MEDS: MAGNESIUM OXIDE 400 MG TAB PO SCH (21:37)
[2017-03-04] MEDS: DILTIAZEM-CD 240 MG CAP ER PO SCH (21:38)
[2017-03-04] MEDS: PRAVASTATIN SOD 40 MG TAB PO SCH (21:42)
[2017-03-05] VITALS (8 sets, daily range): BP systolic 142–180; BP diastolic 65–86; PULSE 56–69; RESP 17–19; TEMP 97.1–98.4; O2SAT 57–99
[2017-03-05] MEDS: hydrALAZINE HCL 10 MG TAB PO PRN (02:07)
[2017-03-05] MEDS: cefTRIAXone INJ 1,000 MG in SODIUM CHLORIDE 0.9% INJ 100 ML IV SCH (05:20)
[2017-03-05] MEDS ORDERED: cycloSPORINE 25 MG CAP PO SCH (06:00)
[2017-03-05] MEDS ORDERED: cycloSPORINE 100 MG CAP PO SCH (06:00)
[2017-03-05] MEDS: MYCOPHENOLATE MOFETIL 500 MG TAB PO SCH ×2 (06:06→17:15)
[2017-03-05] MEDS: INSULIN ASPART SUPPLEMENTAL SCALE SQ SCH ×4 (06:48→21:38)
[2017-03-05 07:52] LABS: AUTOMATED NEUTROPHIL # 7.5 TH/MM3 (1.8-7.7); BASOPHIL % 0.5 % (0.0-2.0); EOSINOPHIL # 0.2 TH/MM3 (0-0.4); EOSINOPHIL % 1.8 % (0.0-4.0); HEMATOCRIT 23.6 % (35.0-46.0); HEMO FLAGS DIFF FINAL; LYMPH % 12.9 % (9.0-44.0); LYMPHOCYTE # 1.3 TH/MM3 (1.0-4.8); MEAN CELL VOLUME 88.2 FL (80.0-100.0); MEAN CORPUSCULAR HEMOGLOBIN 29.2 PG (27.0-34.0); MEAN CORPUSCULAR HGB CONC 33.1 % (32.0-36.0); MONO % 8.6 % (0.0-8.0); NEUT % 76.2 % (16.0-70.0); PLATELET COUNT 172 TH/MM3 (150-450); RED BLOOD COUNT 2.68 MIL/MM3 (4.00-5.30); RED CELL DISTRIBUTION WIDTH 13.1 % (11.6-17.2); WHITE BLOOD COUNT 9.8 TH/MM3 (4.0-11.0)
[2017-03-05] MEDS: DOCUSATE SODIUM 50 MG/SENNA 8.6 MG TAB PO SCH ×2 (08:28→20:25)
[2017-03-05] MEDS: SALMETEROL XINAFOATE 50 MCG DISKUS INH SCH ×2 (08:28→21:00)
[2017-03-05] MEDS: FLUTICASONE PROPIONATE 44 MCG/ACT 10.6 GM INHALER INH SCH ×2 (08:28→21:00)
[2017-03-05] MEDS: SODIUM CHLORIDE 0.9% FLUSH 10 ML FLUSH IV FLUSH SCH ×2 (08:28→20:25)
[2017-03-05] MEDS: FAMOTIDINE 20 MG TAB PO SCH ×2 (08:28→20:25)
[2017-03-05] MEDS: SERTRALINE HCL 100 MG TAB PO SCH ×2 (08:28→20:25)
[2017-03-05] MEDS: METOPROLOL TARTRATE 50 MG TAB PO SCH (08:28)
[2017-03-05] MEDS: predniSONE 5 MG TAB PO SCH (08:28)
[2017-03-05 08:32] LABS: ALKALINE PHOSPHATASE 140 U/L (45-117); ALT (GPT) 52 U/L (10-53); ANION GAP 9 MEQ/L (5-15); AST (GOT) 49 U/L (15-37); BICARBONATE 26.5 MEQ/L (21.0-32.0); BLOOD UREA NITROGEN 47 MG/DL (7-18); CHLORIDE 106 MEQ/L (98-107); GLOMERULAR FILTRATION RATE 21 ML/MIN (>89); POTASSIUM 4.8 MEQ/L (3.5-5.1); SODIUM (NA) 141 MEQ/L (136-145); TOTAL BILIRUBIN ADULT 0.2 MG/DL (0.2-1.0)
[2017-03-05] MEDS ORDERED: INFLUENZA VIRUS VACCINE (QUADRIVALENT) 0.5 ML SYR IM ONE (09:00)
[2017-03-05] MEDS ORDERED: METOPROLOL TARTRATE 50 MG TAB PO ONE (09:30)
--- NOTE | 2017-03-05 09:41 | HHI.PR ---
Subjective Remarks Pt states she still has pain on her right flank pain, when she sits still it doesn't bother her but whenever she moves around it hurts. no CP/SOB/N/V Discussed w RN, pt has been very somnolent, concerned about IV dose of dilaudid. Objective Vitals Vital Signs Date Time Temp Pulse Resp B/P Pulse Ox O2 Delivery O2 Flow Rate FiO2 03/05/17 07:19 98.3 60 18 159/70 96 03/05/17 03:55 98.2 57 19 148/65 57 03/05/17 00:58 97.3 68 19 180/72 96 03/04/17 20:33 98.2 58 20 166/73 94 03/04/17 18:33 55 166/70 03/04/17 16:40 96.9 50 18 197/80 96 03/04/17 13:38 98.9 56 18 190/78 96 Result Diagram: 03/05/17 0642 03/05/17 0642 Imaging Last Impressions Abdomen/Pelvis CT 03/04/17 0022 Signed Impressions: Service Date/Time: Saturday, March 04, 2017 01:39 - CONCLUSION: Multiple masses throughout both the [place] kidneys and the transplant kidney. The density of the mass in the right [place] kidney is concerning for a solid mass. An outpatient renal ultrasound is recommended. Unremarkable bowel gas pattern without obvious etiology for abdominal pain. Cam Cristina MD Objective Remarks GENERAL: Middle-aged female sitting up in bed, appears comfortable. HEENT: EOMI. hirsutism noted. CARDIOVASCULAR: Regular rate and rhythm. No obvious murmurs to auscultation. RESPIRATORY: No obvious wheezing. Clear to auscultation. Breath sounds equal bilaterally. GASTROINTESTINAL: Abdomen soft, obese, right flank tenderness to palpation, nondistended. BS normal. MUSCULOSKELETAL: Extremities without edema. No obvious deformities. NEUROLOGICAL: Awake, alert and oriented x4. No focal neurologic deficits. Moving both upper and lower extremities spontaneously. A/P Problem List: (1) Intractable pain ICD Code: R52 Status: Acute (2) Bilateral renal masses ICD Code: N28.89 Status: Acute (3) H/O kidney transplant ICD Code: Z94.0 Status: Acute (4) UTI (urinary tract infection) ICD Code: N39.0 Status: Acute (5) EDITH (acute kidney injury) ICD Code: N17.9 Status: Acute (6) Anemia ICD Code: D64.9 Status: Acute (7) HTN (hypertension) ICD Code: I10 Status: Acute (8) Leukocytosis ICD Code: D72.829 Status: Acute Assessment and Plan 1. Intractable Flank Pain: improved w pain regimen. c/o acute onset of right flank pain x1 day prior to admission, CT Abd/Pelvis w/ multiple renal masses, right solid mass, likely etiology of pain complaints. MRI is concerning for renal cell carcinoma. Will get General sx consult for further eval and recs. S/ p Dilaudid IV in ER, adjusted po pain meds w combination of IV dilaudid for breakthrough pain, however RN concerned as pt more somnolent w current dose of IV dilaudid, will decrease to 0.5mg IV q3hrs prn. encouraged pt to take po instead of IV. 2. Renal Masses: Bilateral. CT Abd/Pelvis as above w/ bilateral renal masses in [place] and transplant kidney, right-sided solid mass which was further evaluated w MRI. MRI , report still on draft, concerning for renal cell CA, gen sx consulted. 3. H/o Renal Transplant: on chronic immunosuppressant therapy, continue home medications. nephrology following. 4. UTI: U/a w/ UTI, on IV Rocephin, follow up cultures which are still pending. 5. EDITH: Acute on Chronic. Creatinine 2.37, previously 1.46 and 09/05/15. UA positive for UTI. IVF for hydration, repeat labs in a.m. 6. Anemia: Hgb 7.8, previously 11.2 on 09/05/15, will monitor, repeat labs in am, transfuse for Hgb <7. 7. HTN: BP 160-180's, most likely secondary to pain, adjusted home medications , per RN, pt on 100mg po BID of metoprolol. monitor BP. PRN hydralazine/ clonidine available. Discharge Planning Gen sx consult. Worsening kidney function at this time. continue IVFs Continue to monitor. Ayana Nicholson MD Mar 05, 2017 09:41
[2017-03-05] MEDS: SODIUM CHLOR 0.9% 1000 ML INJ 1,000 ML IV SCH ×3 (09:48→22:21)
[2017-03-05] MEDS ORDERED: HYDROmorphone HCL PF 1 MG/ML VIAL IV PRN (12:00)
[2017-03-05] MEDS: ACETAMINOPHEN/HYDROcodone 325 MG/10 MG TAB PO PRN ×2 (14:17→20:29)
--- NOTE | 2017-03-05 17:44 | HHI.NPPN ---
Subjective History of Present Illness hx of kidney transplant Objective Data Data Vital Signs Date Time Temp Pulse Resp B/P Pulse Ox O2 Delivery O2 Flow Rate FiO2 03/05/17 16:47 154/72 03/05/17 15:53 97.5 56 17 174/80 98 03/05/17 11:15 98.4 57 19 142/66 97 03/05/17 07:19 98.3 60 18 159/70 96 03/05/17 03:55 98.2 57 19 148/65 57 03/05/17 00:58 97.3 68 19 180/72 96 03/04/17 20:33 98.2 58 20 166/73 94 03/04/17 18:33 55 166/70 -: 03/05/17 0642 03/05/17 0642 Physical Exam General Appearance: Well Developed Neck Neck Exam: Neck Supple Pulmonary Resp Exam: Clear Bilaterally, Breath Sounds Equal Cardiology CV Exam: Regular, Normal Sinus Rhythm Gastrointestinal/Abdomen GI Exam: Soft, Bowel Sounds Present Extremeties Extremities Exam: No Edema Neurologic Neuro Exam: Alert, Awake Assessment/Plan Problem List: (1) H/O kidney transplant Plan: I agree with hydration and resume her cyclosporine she is awake and remember 100 mg bid cr 2.37 check CSA level in am as she is on Diltiazem follow urine C/S follow with Rosie (2) Bilateral renal masses Plan: Right [place] kidney mass that is suspicious appearing with solid and cystic feature this should be referred to urology And this can be done as an outpatient follow with Dr. Velez (3) EDITH (acute kidney injury) Plan: Continue to monitor (4) Intractable pain Plan: She is getting DilMisha Green MD Mar 05, 2017 17:44
[2017-03-05] MEDS: MAGNESIUM OXIDE 400 MG TAB PO SCH (20:24)
[2017-03-05] MEDS: DILTIAZEM-CD 240 MG CAP ER PO SCH (20:25)
[2017-03-05] MEDS: PRAVASTATIN SOD 40 MG TAB PO SCH (20:25)
[2017-03-05] MEDS: METOPROLOL TARTRATE 100 MG TAB PO SCH (20:25)
[2017-03-05] MEDS: cycloSPORINE 100 MG CAP PO SCH (22:21)
[2017-03-06] VITALS: BP 143/55; PULSE 52; RESP 18; TEMP 97.2; O2SAT 97
[2017-03-06 04:00] VITALS: BP 164/76; PULSE 89; RESP 16; TEMP 97.1; O2SAT 95
[2017-03-06] MEDS: cefTRIAXone INJ 1,000 MG in SODIUM CHLORIDE 0.9% INJ 100 ML IV SCH (04:34)
[2017-03-06] MEDS: MYCOPHENOLATE MOFETIL 500 MG TAB PO SCH ×2 (05:53→23:09)
[2017-03-06] MEDS: INSULIN ASPART SUPPLEMENTAL SCALE SQ SCH ×4 (05:58→21:00)
[2017-03-06 07:30] LABS: BICARBONATE 26.7 MEQ/L (21.0-32.0); POTASSIUM 4.2 MEQ/L (3.5-5.1)
[2017-03-06] MEDS: ACETAMINOPHEN/HYDROcodone 325 MG/10 MG TAB PO PRN ×2 (08:17→23:10)
[2017-03-06] MEDS: SERTRALINE HCL 100 MG TAB PO SCH ×2 (08:17→23:11)
[2017-03-06] MEDS: METOPROLOL TARTRATE 100 MG TAB PO SCH ×2 (08:18→23:11)
[2017-03-06] MEDS: FAMOTIDINE 20 MG TAB PO SCH ×2 (08:18→23:11)
[2017-03-06] MEDS: DOCUSATE SODIUM 50 MG/SENNA 8.6 MG TAB PO SCH ×2 (08:19→21:00)
[2017-03-06] MEDS: predniSONE 5 MG TAB PO SCH (08:19)
[2017-03-06] MEDS: FLUTICASONE PROPIONATE 44 MCG/ACT 10.6 GM INHALER INH SCH ×2 (08:20→21:00)
[2017-03-06] MEDS: SODIUM CHLORIDE 0.9% FLUSH 10 ML FLUSH IV FLUSH SCH ×2 (08:20→23:11)
[2017-03-06] MEDS: SALMETEROL XINAFOATE 50 MCG DISKUS INH SCH ×2 (08:20→21:00)
--- NOTE | 2017-03-06 08:22 | HHI.PR ---
Subjective Remarks Right flank Pain is still present but controlled on po pain meds denies any CP/SOB/N/V tells me that she f/u w Dr. Velez as an outpatient Objective Vitals Vital Signs Date Time Temp Pulse Resp B/P Pulse Ox O2 Delivery O2 Flow Rate FiO2 03/06/17 04:00 97.1 89 16 164/76 95 03/06/17 00:00 97.2 52 18 143/55 97 03/05/17 21:29 20 03/05/17 20:00 97.9 69 17 152/69 97 03/05/17 18:58 97.1 58 18 180/86 99 161/76 03/05/17 16:47 154/72 03/05/17 15:53 97.5 56 17 174/80 98 03/05/17 11:15 98.4 57 19 142/66 97 I/O 03/05/17 03/05/17 03/05/17 03/06/17 03/06/17 03/06/17 07:00 15:00 23:00 07:00 15:00 23:00 Intake Total 480 ml 381 ml Balance 480 ml 381 ml Intake Oral 480 ml IV Total 381 ml # Voids 1 # Bowel Movements 0 Result Diagram: 03/05/17 0642 03/06/17 0632 Imaging Last Impressions Abdomen/Pelvis CT 03/04/17 0022 Signed Impressions: Service Date/Time: Saturday, March 04, 2017 01:39 - CONCLUSION: Multiple masses throughout both the [place] kidneys and the transplant kidney. The density of the mass in the right [place] kidney is concerning for a solid mass. An outpatient renal ultrasound is recommended. Unremarkable bowel gas pattern without obvious etiology for abdominal pain. Cam Cristina MD Renal Ultrasound 03/04/17 0000 Signed Impressions: Service Date/Time: Saturday, March 04, 2017 07:40 - CONCLUSION: Inconclusive ultrasound. Mass in the [place] kidney on the right is suspicious. This could be confirmed with an MRI without contrast. Sherif Diaz MD FACR Abdomen MRI 03/04/17 0000 Signed Impressions: Service Date/Time: Saturday, March 04, 2017 11:28 - CONCLUSION: Complex mass upper pole of the right kidney, indeterminate renal cell carcinoma. This is new from the most recent comparison study. If there are no intervening studies evident, options for further workup include contrasted MRI which does require consenting given the altered renal function as well as biopsy. Sherif Diaz MD FACR Objective Remarks GENERAL: Middle-aged female sitting up in bed, appears comfortable. HEENT: EOMI. hirsutism noted. CARDIOVASCULAR: Regular rate and rhythm. No obvious murmurs to auscultation. RESPIRATORY: No obvious wheezing. Clear to auscultation. Breath sounds equal bilaterally. GASTROINTESTINAL: Abdomen soft, obese, non tender, right flank tenderness to palpation, nondistended. MUSCULOSKELETAL: Extremities without edema. No obvious deformities. NEUROLOGICAL: Awake, alert and oriented, answers questions appropriately. A/P Problem List: (1) Intractable pain ICD Code: R52 Status: Acute (2) Bilateral renal masses ICD Code: N28.89 Status: Acute (3) H/O kidney transplant ICD Code: Z94.0 Status: Acute (4) UTI (urinary tract infection) ICD Code: N39.0 Status: Acute (5) EDITH (acute kidney injury) ICD Code: N17.9 Status: Acute (6) Anemia ICD Code: D64.9 Status: Acute (7) HTN (hypertension) ICD Code: I10 Status: Acute (8) Leukocytosis ICD Code: D72.829 Status: Acute Assessment and Plan 1. Intractable Flank Pain: improved w pain regimen. c/o acute onset of right flank pain x1 day prior to admission, CT Abd/Pelvis w/ multiple renal masses, right solid mass, likely etiology of pain complaints. MRI is concerning for renal cell carcinoma. Urology has been consulted for further eval and recs. S/p Dilaudid IV in ER, adjusted po pain meds w combination of IV dilaudid for breakthrough pain, she hasn't required IV dilaudid. Continue PO pain meds for now. 2. Renal Masses: Bilateral. CT Abd/Pelvis as above w/ bilateral renal masses in [place] and transplant kidney, right-sided solid mass which was further evaluated w MRI. MRI , concerning for renal cell CA, urology consulted. awaiting recs 3. H/o Renal Transplant: on chronic immunosuppressant therapy, continue home medications. nephrology following. 4. UTI: U/a w/ UTI, on IV Rocephin, follow up cultures which are still pending. 5. EDITH: Acute on Chronic. Creatinine 2.42, previously 1.46 and 09/05/15. UA positive for UTI. IVF for hydration 6. Anemia: Hgb 7.8, previously 11.2 on 09/05/15, will monitor, repeat labs in am, transfuse for Hgb <7. 7. HTN: BP 160-180's, most likely secondary to pain, adjusted home medications , per RN, pt on 100mg po BID of metoprolol. will add amlodipine 10mg po daily. monitor BP. PRN hydralazine/clonidine available. Discharge Planning urology consult. Worsening kidney function at this time. awaiting final recs from nephrology Continue to monitor. f/u urine cx Ayana Nicholson MD Mar 06, 2017 08:22
[2017-03-06 08:38] LABS: HEMATOCRIT 23.7 % (35.0-46.0); REVIEW FLAG FINAL
[2017-03-06 08:58] VITALS: BP 182/71; PULSE 52; RESP 20; TEMP 96.6; O2SAT 99
[2017-03-06] MEDS ORDERED: PNEUMOCOCCAL POLYVALENT INJ 25 MCG/0.5 ML SYR IM ONE (10:00)
--- NOTE | 2017-03-06 10:19 | HHI.NPPN ---
Subjective General Problems: Anemia Renal Problems: Flank Pain Renal Failure: Chronic, Acute (Ania Sampson) Objective Data Data 03/05/17 03/06/17 19:00 07:00 Intake Total 861 ml Balance 861 ml Intake Oral 480 ml IV Total 381 ml # Voids 1 # Bowel Movements 0 Vital Signs Date Time Temp Pulse Resp B/P Pulse Ox O2 Delivery O2 Flow Rate FiO2 03/06/17 08:58 96.6 52 20 182/71 99 03/06/17 04:00 97.1 89 16 164/76 95 03/06/17 00:00 97.2 52 18 143/55 97 03/05/17 21:29 20 03/05/17 20:00 97.9 69 17 152/69 97 03/05/17 18:58 97.1 58 18 180/86 99 161/76 03/05/17 16:47 154/72 03/05/17 15:53 97.5 56 17 174/80 98 03/05/17 11:15 98.4 57 19 142/66 97 (Ania Sampson) -: 03/06/17 0632 03/06/17 0632 Imaging Last 72 hours Impressions Abdomen/Pelvis CT 03/04/17 0022 Signed Impressions: Service Date/Time: Saturday, March 04, 2017 01:39 - CONCLUSION: Multiple masses throughout both the [place] kidneys and the transplant kidney. The density of the mass in the right [place] kidney is concerning for a solid mass. An outpatient renal ultrasound is recommended. Unremarkable bowel gas pattern without obvious etiology for abdominal pain. Cam Cristina MD Renal Ultrasound 03/04/17 0000 Signed Impressions: Service Date/Time: Saturday, March 04, 2017 07:40 - CONCLUSION: Inconclusive ultrasound. Mass in the [place] kidney on the right is suspicious. This could be confirmed with an MRI without contrast. Sherif Diaz MD FACR Abdomen MRI 03/04/17 0000 Signed Impressions: Service Date/Time: Saturday, March 04, 2017 11:28 - CONCLUSION: Complex mass upper pole of the right kidney, indeterminate renal cell carcinoma. This is new from the most recent comparison study. If there are no intervening studies evident, options for further workup include contrasted MRI which does require consenting given the altered renal function as well as biopsy. Sherif Diaz MD FACR (Ania Sampson) Physical Exam General Appearance: Well Developed, No Acute Distress, Comfortable, Obese (Ania Sampson) Neck Neck Exam: Neck Supple (Ania Sampson) Pulmonary Resp Exam: Clear Bilaterally, Breath Sounds Equal (Ania Sampson) Cardiology CV Exam: Regular, Normal Sinus Rhythm, Good Perfusion (Ania Sampson) Gastrointestinal/Abdomen GI Exam: Soft, Non-Tender, Bowel Sounds Present (Ania Sampson) Musculoskeletal MS Exam: Joints Intact, Normal Tone, Good Strength (Ania Sampson) Integumentary Skin Exam: Warm, Dry, Intact (Ania Sampson) Extremeties Extremities Exam: No Edema, Pedal Pulses Palpable (Ania Sampson) Neurologic Neuro Exam: Alert, Awake, Oriented, Speech Clear, Moving All Extremities ( Ania Sampson) Psychiatric Psych Exam: Appropriate Responses (Ania Sampson) Assessment/Plan Discussed Condition With: Patient Problem List: (1) EDITH (acute kidney injury) Plan: EDITH on CKD 3 she has a baseline of CKD 4, with creatinine of 2.1, GFR 24 from December of 2016, in Sep her creatinine was 2.2, GFR 28 EDITH may be due to infection she is on IVF, continue but reduce rate to 50 cc/hr of 0.9% NS follow electrolytes and renal function she is non oliguric avoid nephrotoxins, Continue to monitor status (2) H/O kidney transplant Plan: living unrelated renal transplant recipient from 2000, her cyclosporine level is in process she is on Prednisone 5 mg daily Mycophenolate 500 mg po BID Cyclosporine 100 mg po BID (3) Bilateral renal masses Plan: Right [place] kidney has a solid mass suspicious for RCC urology consult has been placed she also has cystic like masses in transplanted kidney (4) Intractable pain Plan: improving with current regimen pain thought to be due to masses that are present (5) Anemia Plan: she has severe anemia iron profile ordered (Ania Sampson) Plan patient was seen and examined. Continue immunosuppressives. Reduce and taper off fluids. Urology evaluation. (Antonio Velez MD) Ania Sampson. [facility] Mar 06, 2017 10:19 Antonio Velez MD Mar 07, 2017 09:53
--- NOTE | 2017-03-06 10:24 | PD.CONS ---
HPI Service Urology Consult Requested By Reason for Consult Right renal mass Primary Care Physician Iván Becerra MD Diagnosis: (1) Intractable pain ICD Code: R52 (2) Bilateral renal masses ICD Code: N28.89 (3) H/O kidney transplant ICD Code: Z94.0 (4) UTI (urinary tract infection) ICD Code: N39.0 (5) EDITH (acute kidney injury) ICD Code: N17.9 (6) Anemia ICD Code: D64.9 (7) HTN (hypertension) ICD Code: I10 (8) Leukocytosis ICD Code: D72.829 History of Present Illness 56-year-old female with multiple medical problems including chronic kidney disease who is status post a renal transplant back in 2000 who was admitted for further workup and management of right sided abdominal pain. During the course of the patient's present hospitalization multiple imaging studies were performed that included ultrasound, CT scanning and an MRI. Significant urologic findings included multiple cysts involving both [place] kidneys as well as the transplant kidney as well as a 5.7 cm complex cystic mass arising from the upper pole of the [place] right kidney suspicious for possible malignancy. Urology was counseled regarding further recommendations. At the time of consultation the patient states she continues to have right upper quadrant pain. She reports that the symptoms have been present on and off for the past several years. I discussed the imaging findings with the patient and have recommended further evaluation to include referral to interventional radiology for a percutaneous needle biopsy. Review of Systems Constitutional: DENIES: Fever Cardiovascular: DENIES: Chest pain Gastrointestinal: COMPLAINS OF: Abdominal pain (right side) Genitourinary: DENIES: Hematuria Musculoskeletal: COMPLAINS OF: Back pain (right flank) Except as stated in HPI: all other systems reviewed are Neg Past Family Social History Past Medical History Chronic kidney disease Lupus Rheumatoid arthritis Hypertension Depression Past Surgical History Status post kidney transplant 2000 Cholecystectomy Lumbar laminectomy Bilateral cataract surgery Tonsillectomy Reported Medications Refer to EMR Allergies: Coded Allergies: Adhesives (Verified Allergy, Severe, SILK TAPE, 03/03/17) Uncoded Allergies: SILK TAPE (Allergy, Mild, 03/19/05) NSAIDS (Adverse Reaction, Severe, 06/21/10) CANNOT TAKE THEM WITH KIDNEY TRANSPLANT Active Ordered Medications Refer to EMR Family History Reviewed and noncontributory Social History Denies tobacco or illicit drug abuse Occasional alcohol use Physical Exam Vital Signs Date Time Temp Pulse Resp B/P Pulse Ox O2 Delivery O2 Flow Rate FiO2 03/06/17 08:58 96.6 52 20 182/71 99 03/06/17 04:00 97.1 89 16 164/76 95 03/06/17 00:00 97.2 52 18 143/55 97 03/05/17 21:29 20 03/05/17 20:00 97.9 69 17 152/69 97 03/05/17 18:58 97.1 58 18 180/86 99 161/76 03/05/17 16:47 154/72 03/05/17 15:53 97.5 56 17 174/80 98 03/05/17 11:15 98.4 57 19 142/66 97 Physical Exam GENERAL: This is a well-nourished, well-developed patient, in no apparent distress. SKIN: No rashes, ecchymoses or lesions. Cool and dry. HEAD: Atraumatic. Normocephalic. No temporal or scalp tenderness. EYES: Pupils equal round and reactive. Extraocular motions intact. No scleral icterus. No injection or drainage. ENT: Nose without bleeding, purulent drainage or septal hematoma. Throat without erythema, tonsillar hypertrophy or exudate. Uvula midline. Airway patent. NECK: Trachea midline. No JVD or lymphadenopathy. Supple, nontender, no meningeal signs. GASTROINTESTINAL: Abdomen soft, non-tender, nondistended. No hepato-splenomegaly , or palpable masses. No guarding. GENITOURINARY: No CVA tenderness MUSCULOSKELETAL: Extremities without clubbing, cyanosis, or edema. No joint tenderness, effusion, or edema noted. No calf tenderness. Negative Homans sign bilaterally. NEUROLOGICAL: Awake and alert. Cranial nerves II through XII intact. Motor and sensory grossly within normal limits. Five out of 5 muscle strength in all muscle groups. Normal speech. Lab results reviewed: Yes Laboratory Tests Test 03/06/17 06:32 Hemoglobin 7.5 Hematocrit 23.7 Sodium Level 140 Potassium Level 4.2 Chloride Level 106 Carbon Dioxide Level 26.7 Anion Gap 7 Blood Urea Nitrogen 54 Creatinine 2.42 Estimat Glomerular Filtration 21 Rate Random Glucose 151 Calcium Level 8.4 Date/Time Procedure Status Source Growth 03/04/17 02:58 Urine Culture - Preliminary Resulted Urine Random Urine RESULTS PENDING Result Diagram: 03/06/17 0632 03/06/17 0632 Personally reviewed images: Yes Imaging Last Impressions Abdomen/Pelvis CT 03/04/17 0022 Signed Impressions: Service Date/Time: Saturday, March 04, 2017 01:39 - CONCLUSION: Multiple masses throughout both the [place] kidneys and the transplant kidney. The density of the mass in the right [place] kidney is concerning for a solid mass. An outpatient renal ultrasound is recommended. Unremarkable bowel gas pattern without obvious etiology for abdominal pain. Cam Cristina MD Renal Ultrasound 03/04/17 0000 Signed Impressions: Service Date/Time: Saturday, March 04, 2017 07:40 - CONCLUSION: Inconclusive ultrasound. Mass in the [place] kidney on the right is suspicious. This could be confirmed with an MRI without contrast. Sherif Diaz MD FACR Abdomen MRI 03/04/17 0000 Signed Impressions: Service Date/Time: Saturday, March 04, 2017 11:28 - CONCLUSION: Complex mass upper pole of the right kidney, indeterminate renal cell carcinoma. This is new from the most recent comparison study. If there are no intervening studies evident, options for further workup include contrasted MRI which does require consenting given the altered renal function as well as biopsy. Sherif Diaz MD FACR Assessment and Plan Assessment and Plan Urologic impression: #1 upper pole complex cystic mass of the [place] right kidney that may potentially be malignant #2 numerous simple cystic lesions involving both [place] kidneys along with the transplant kidney #3 status post renal transplant 2000 Recommendation: 1. Interventional radiology referral for biopsy and drainage of complex cystic mass involving upper pole of [place] right kidney 2. Cystic renal lesions typically do not cause any pain and this may be an incidental finding Chinedu Torres MD Mar 06, 2017 10:24
[2017-03-06] MEDS: cycloSPORINE 100 MG CAP PO SCH ×2 (11:59→23:17)
[2017-03-06 12:26] LABS: TRANSFERRIN IRON PROFILE 149 MG/DL (200-360)
[2017-03-06 12:39] VITALS: BP 155/67; PULSE 50; RESP 19; TEMP 97.4; O2SAT 96
[2017-03-06 14:42] LABS: APTT (PATIENT) 28.5 SEC (24.3-30.1); PROTHROMBIN TIME - PATIENT 10.6 SEC (9.8-11.6)
[2017-03-06] MEDS ORDERED: fentaNYL CITRATE 250 MCG/5 ML AMP ONE (15:38)
[2017-03-06] MEDS ORDERED: MIDAZOLAM HCL 2 MG/2 ML VIAL ONE (15:38)
[2017-03-06] MEDS ORDERED: LIDOCAINE 1%/EPINEPHrine 1:100,000 SOLN 20 ML VIAL ONE (15:38)
[2017-03-06] MEDS ORDERED: THROMBIN (TOPICAL) 5,000 UNIT VIAL ONE (17:06)
--- NOTE | 2017-03-06 17:32 | PD.RAD ---
Post CT Procedure Prog Note Pre Procedure Diagnosis: (1) Renal mass Post Procedure Diagnosis: (1) Renal mass Procedure Date: Mar 06, 2017 Supervising Radiologist: To Sol Estimated blood loss: 30cc Anesthesia: Conscious Sedation Plan of Activity Patient to Unit: PACU Patient Condition: Good See PACS Report for procedural detail/treatment Biopsy Imaging Guidance: CT Side: Right Biopsy Procedure: Kidney Site: right kidney mass biopsy Specimen: Core Biopsy Findings: approximately 30cc of dark blood aspirated from lesion without any decrease in size of mass. 2 core samples were obtained. Thrombin injected at end of procedure. Plan to PACU for post-biopsy monitoring (ROPU is closed). Post procedure scan demonstrated only minimal perinephric blood. Patient needs to be monitored for signs of bleeding. To Sol MD Mar 06, 2017 17:32
[2017-03-06 20:30] VITALS: BP 202/86; PULSE 57; RESP 20; TEMP 97.3; O2SAT 99
[2017-03-06] MEDS: PRAVASTATIN SOD 40 MG TAB PO SCH (23:09)
[2017-03-06] MEDS: MAGNESIUM OXIDE 400 MG TAB PO SCH (23:09)
[2017-03-06] MEDS: DILTIAZEM-CD 240 MG CAP ER PO SCH (23:11)
[2017-03-06] MEDS: SODIUM CHLOR 0.9% 1000 ML INJ 1,000 ML IV SCH (23:13)
[2017-03-07] VITALS: BP 198/98; PULSE 57; RESP 18; TEMP 96.9; O2SAT 100
[2017-03-07 02:05] LABS: AUTOMATED NEUTROPHIL # 6.2 TH/MM3 (1.8-7.7); BASOPHIL # 0.1 TH/MM3 (0-0.2); BASOPHIL % 0.6 % (0.0-2.0); EOSINOPHIL # 0.2 TH/MM3 (0-0.4); EOSINOPHIL % 2.5 % (0.0-4.0); HEMATOCRIT 23.7 % (35.0-46.0); HEMO FLAGS DIFF FINAL; LYMPH % 14.8 % (9.0-44.0); LYMPHOCYTE # 1.2 TH/MM3 (1.0-4.8); MEAN CELL VOLUME 88.6 FL (80.0-100.0); MEAN CORPUSCULAR HEMOGLOBIN 28.5 PG (27.0-34.0); MEAN CORPUSCULAR HGB CONC 32.1 % (32.0-36.0); MONO % 8.6 % (0.0-8.0); NEUT % 73.5 % (16.0-70.0); PLATELET COUNT 180 TH/MM3 (150-450); RED BLOOD COUNT 2.68 MIL/MM3 (4.00-5.30); RED CELL DISTRIBUTION WIDTH 13.1 % (11.6-17.2); WHITE BLOOD COUNT 8.4 TH/MM3 (4.0-11.0)
[2017-03-07 02:24] LABS: BICARBONATE 27.6 MEQ/L (21.0-32.0); POTASSIUM 4.6 MEQ/L (3.5-5.1)
[2017-03-07 04:00] VITALS: BP 139/60; PULSE 55; RESP 18; TEMP 98.1; O2SAT 95
[2017-03-07] MEDS: cefTRIAXone INJ 1,000 MG in SODIUM CHLORIDE 0.9% INJ 100 ML IV SCH (04:48)
[2017-03-07] MEDS: MYCOPHENOLATE MOFETIL 500 MG TAB PO SCH ×2 (05:23→17:19)
[2017-03-07] MEDS: INSULIN ASPART SUPPLEMENTAL SCALE SQ SCH ×4 (06:11→22:35)
[2017-03-07 08:00] VITALS: BP 156/71; PULSE 52; RESP 20; TEMP 96.6; O2SAT 97
--- NOTE | 2017-03-07 08:00 | RADRPT ---
EXAM DATE/TIME: 03/06/2017 16:26 [facility] COMPARISON: US KIDNEY/RENAL/BLADDER, March 04, 2017, 7:40. CT ABDOMEN & PELVIS W/O CONTRAST, March 04, 2017, 1:39. MRI ABDOMEN W/O CONTRAST, March 04, 2017, 11:28. INDICATIONS : Right kidney lesion. SEDATION TIME: 45 minutes BIOPSY SITE: Right kidney MEDICATION(S): 1.) 2 mg midazolam (Versed) IV 2.) 100 mcg fentanyl (Sublimaze) IV DEVICE(S): 1.) 18 gauge Temno core biopsy needle MEDICAL HISTORY : Hypertension. SURGICAL HISTORY : Cholecystectomy right kidney transplant, laminectomy ENCOUNTER: Initial ACUITY: 1 day PAIN SCORE: 0/10 LOCATION: Bilateral abdomen A total of two core specimen(s) were obtained and sent to the laboratory for pathologic evaluation. PROCEDURE: 1. CT guided right renal mass biopsy. 2. Conscious sedation with continuous EKG and oximetry monitoring. 3. EKG and oximetry remained stable throughout the procedure. Prior to the procedure informed consent was obtained. The patient's prior imaging studies were review ed. Using automated exposure control and adjustment of the mA and/or kV according to patient size, radiat ion dose was kept as low as reasonably achievable to obtain optimal diagnostic quality images. DICOM format image data is available electronically for review and comparison. The site was prepped in a sterile fashion. Full sterile technique was used, including cap, mask, apollo rile gloves and gown and a large sterile sheet. Hand hygiene and 2% chlorhexidine and/or betadine/al cohol prep was utilized per protocol for cutaneous antisepsis. The skin and subcutaneous tissues wer e infiltrated with local anesthetic solution. With CT guidance the right renal mass was localized. Approximately 30 cc of old blood was removed aft er opening the coaxial needle. Biopsy was then performed using the prescribed needle as above. Adequ ate hemostasis was obtained with compression at the puncture site. Thrombin was injected at the biops y site. Follow-up CT scan reveals minimal perinephric hemorrhage. The patient tolerated the procedure well and there were no complications. The patient was returned to the PACU in stable condition. CONCLUSION: Uncomplicated CT guided right renal mass biopsy. To Sol MD on March 07, 2017 at 7:53 Board Certified Radiologist. This report was verified electronically.
[2017-03-07] MEDS: DOCUSATE SODIUM 50 MG/SENNA 8.6 MG TAB PO SCH ×2 (08:15→22:27)
[2017-03-07] MEDS: FAMOTIDINE 20 MG TAB PO SCH ×2 (08:15→22:27)
[2017-03-07] MEDS: METOPROLOL TARTRATE 100 MG TAB PO SCH ×2 (08:15→22:27)
[2017-03-07] MEDS: SODIUM CHLORIDE 0.9% FLUSH 10 ML FLUSH IV FLUSH SCH ×2 (08:15→22:25)
[2017-03-07] MEDS: cycloSPORINE 100 MG CAP PO SCH ×2 (08:15→22:26)
[2017-03-07] MEDS: predniSONE 5 MG TAB PO SCH (08:16)
[2017-03-07] MEDS: SERTRALINE HCL 100 MG TAB PO SCH ×2 (08:16→22:27)
[2017-03-07] MEDS: SALMETEROL XINAFOATE 50 MCG DISKUS INH SCH ×2 (08:27→22:25)
[2017-03-07] MEDS: FLUTICASONE PROPIONATE 44 MCG/ACT 10.6 GM INHALER INH SCH ×2 (08:27→22:25)
--- NOTE | 2017-03-07 09:15 | HHI.PR ---
Subjective Remarks Patient currently does not have any pain. Denies any nausea or vomiting. She states when she moves, her pain starts however it is controlled with the current pain med regimen. She tells me that she has an autistic son therefore going to doctor's appointments is difficult for her and she wishes to get all workup done here in the hospital if possible. Objective Vitals Vital Signs Date Time Temp Pulse Resp B/P Pulse Ox O2 Delivery O2 Flow Rate FiO2 03/07/17 07:05 18 03/07/17 04:00 98.1 55 18 139/60 95 03/07/17 00:10 18 03/07/17 00:00 96.9 57 18 198/98 100 03/06/17 20:30 97.3 57 20 202/86 99 03/06/17 19:30 98.5 53 16 152/59 98 Nasal Cannula 2 03/06/17 19:15 52 16 154/69 98 Nasal Cannula 2 03/06/17 19:00 51 16 149/50 98 Nasal Cannula 2 03/06/17 18:45 52 16 152/67 97 Nasal Cannula 2 03/06/17 18:30 52 15 162/69 96 Nasal Cannula 2 03/06/17 18:15 55 20 166/75 100 Nasal Cannula 2 03/06/17 18:00 52 12 163/70 100 Nasal Cannula 2 03/06/17 17:45 97.8 53 13 179/75 98 Nasal Cannula 2 03/06/17 12:39 97.4 50 19 155/67 96 I/O 03/06/17 03/06/17 03/06/17 03/07/17 03/07/17 03/07/17 07:00 15:00 23:00 07:00 15:00 23:00 Intake Total 381 ml 200 ml 480 ml Output Total 30 ml Balance 381 ml 170 ml 480 ml Intake Oral 480 ml IV Total 381 ml Other 200 ml Output Estimated Blood Loss 30 ml # Voids 2 3 Result Diagram: 03/07/17 0147 03/07/17 0147 Imaging Last Impressions Renal Biopsy CT 03/06/17 0000 Signed Impressions: Service Date/Time: Monday, March 06, 2017 16:26 - CONCLUSION: Uncomplicated CT guided right renal mass biopsy. To Sol MD Abdomen/Pelvis CT 03/04/17 0022 Signed Impressions: Service Date/Time: Saturday, March 04, 2017 01:39 - CONCLUSION: Multiple masses throughout both the [place] kidneys and the transplant kidney. The density of the mass in the right [place] kidney is concerning for a solid mass. An outpatient renal ultrasound is recommended. Unremarkable bowel gas pattern without obvious etiology for abdominal pain. Cam Cristina MD Renal Ultrasound 03/04/17 0000 Signed Impressions: Service Date/Time: Saturday, March 04, 2017 07:40 - CONCLUSION: Inconclusive ultrasound. Mass in the [place] kidney on the right is suspicious. This could be confirmed with an MRI without contrast. Sherif Diaz MD FACR Abdomen MRI 03/04/17 0000 Signed Impressions: Service Date/Time: Saturday, March 04, 2017 11:28 - CONCLUSION: Complex mass upper pole of the right kidney, indeterminate renal cell carcinoma. This is new from the most recent comparison study. If there are no intervening studies evident, options for further workup include contrasted MRI which does require consenting given the altered renal function as well as biopsy. Sherif Diaz MD FACR Objective Remarks GENERAL: Middle-aged female sitting up in bed, appears comfortable. HEENT: EOMI. hirsutism noted. CARDIOVASCULAR: Regular rate and rhythm. No obvious murmurs to auscultation. RESPIRATORY: No obvious wheezing. Clear to auscultation. Breath sounds equal bilaterally. GASTROINTESTINAL: Abdomen soft, obese, non tender, right flank tenderness to palpation, nondistended. MUSCULOSKELETAL: Extremities without edema. No obvious deformities. NEUROLOGICAL: Awake, alert and oriented, answers questions appropriately. A/P Problem List: (1) Intractable pain ICD Code: R52 Status: Acute (2) Bilateral renal masses ICD Code: N28.89 Status: Acute (3) H/O kidney transplant ICD Code: Z94.0 Status: Acute (4) UTI (urinary tract infection) ICD Code: N39.0 Status: Acute (5) EDITH (acute kidney injury) ICD Code: N17.9 Status: Acute (6) Anemia ICD Code: D64.9 Status: Acute (7) HTN (hypertension) ICD Code: I10 Status: Acute (8) Leukocytosis ICD Code: D72.829 Status: Acute Assessment and Plan 1. Intractable Flank Pain: improved w pain regimen. c/o acute onset of right flank pain x1 day prior to admission, CT Abd/Pelvis w/ multiple renal masses, right solid mass, likely etiology of pain complaints. MRI is concerning for renal cell carcinoma. Urology has been consulted for further eval and recs, she is status post core biopsy of the right kidney mass postop day 1. S/p Dilaudid IV in ER, adjusted po pain meds w combination of IV dilaudid for breakthrough pain, she hasn't required IV dilaudid. Continue PO pain meds 2. Renal Masses: Bilateral. CT Abd/Pelvis as above w/ bilateral renal masses in [place] and transplant kidney, right-sided solid mass which was further evaluated w MRI. MRI , concerning for renal cell CA, urology following. awaiting recs 3. H/o Renal Transplant: on chronic immunosuppressant therapy, continue home medications. nephrology following. 4. UTI: U/a w/ UTI, on IV Rocephin, follow up cultures which are still pending. 5. EDITH: Acute on Chronic. Creatinine 2.38, previously 1.46 and 09/05/15. UA positive for UTI. IVF for hydration 6. Anemia: Hgb 7.6, previously 11.2 on 09/05/15, will monitor, repeat labs in am, transfuse for Hgb <7. Patient tells me that her primary care doctor is aware and is following. PCP feels that he may be related to her kidney function. 7. HTN: BP 160-180's, most likely secondary to pain, adjusted home medications , per RN, pt on 100mg po BID of metoprolol. amlodipine 10mg po daily. Added hydralazine 10 mg by mouth every 8. monitor BP. PRN hydralazine/clonidine available. Discharge Planning urology following. She is status post core biopsy of renal mass. Awaiting final recommendations from urology. Urine cultures growing strep not A,B,D. patient asymptomatic and already received 4 doses of Rocephin. No need for further antibiotic treatment Ayana Nicholson MD Mar 07, 2017 09:14
[2017-03-07] MEDS ORDERED: HYDR-3288 PO (09:22)
--- NOTE | 2017-03-07 10:33 | HHI.NPPN ---
Subjective General Problems: Anemia Renal Problems: Flank Pain Renal Failure: Chronic, Acute Interval History Sitting up in bed. She had renal biopsy yesterday. Renal function is slightly better. (Ania Sampson) Objective Data Data 03/06/17 03/07/17 19:00 07:00 Intake Total 200 ml 480 ml Output Total 30 ml Balance 170 ml 480 ml Intake Oral 480 ml Other 200 ml Output Estimated Blood Loss 30 ml # Voids 2 3 Vital Signs Date Time Temp Pulse Resp B/P Pulse Ox O2 Delivery O2 Flow Rate FiO2 03/07/17 08:00 96.6 52 20 156/71 97 03/07/17 07:05 18 03/07/17 04:00 98.1 55 18 139/60 95 03/07/17 00:10 18 03/07/17 00:00 96.9 57 18 198/98 100 03/06/17 20:30 97.3 57 20 202/86 99 03/06/17 19:30 98.5 53 16 152/59 98 Nasal Cannula 2 03/06/17 19:15 52 16 154/69 98 Nasal Cannula 2 03/06/17 19:00 51 16 149/50 98 Nasal Cannula 2 03/06/17 18:45 52 16 152/67 97 Nasal Cannula 2 03/06/17 18:30 52 15 162/69 96 Nasal Cannula 2 03/06/17 18:15 55 20 166/75 100 Nasal Cannula 2 03/06/17 18:00 52 12 163/70 100 Nasal Cannula 2 03/06/17 17:45 97.8 53 13 179/75 98 Nasal Cannula 2 03/06/17 12:39 97.4 50 19 155/67 96 (Ania Sampson) -: 03/07/17 0147 03/07/17 0147 Imaging Last 72 hours Impressions Renal Biopsy CT 03/06/17 0000 Signed Impressions: Service Date/Time: Monday, March 06, 2017 16:26 - CONCLUSION: Uncomplicated CT guided right renal mass biopsy. To Sol MD (Ania Sampson) Physical Exam General Appearance: Well Developed, No Acute Distress, Comfortable, Obese (Ania Sampson) Neck Neck Exam: Neck Supple (Ania Sampson) Pulmonary Resp Exam: Clear Bilaterally, Breath Sounds Equal, No Distress (Ania Sampson) Cardiology CV Exam: Regular, Normal Sinus Rhythm, Good Perfusion (Ania Sampson) Gastrointestinal/Abdomen GI Exam: Soft, Non-Tender, Bowel Sounds Present (Ania Sampson) Musculoskeletal MS Exam: Joints Intact, Normal Tone, Good Strength (Ania Sampson) Integumentary Skin Exam: Warm, Dry, Intact (Ania Sampson) Extremeties Extremities Exam: No Edema, Pedal Pulses Palpable (Ania Sampson) Neurologic Neuro Exam: Alert, Awake, Oriented, Speech Clear, Moving All Extremities ( Ania Sampson) Psychiatric Psych Exam: Appropriate Responses (Ania Sampson) Assessment/Plan Discussed Condition With: Patient Assessment Summary: EDITH/Acute Renal Failure, Hypertension, CKD Stage III Problem List: (1) EDITH (acute kidney injury) Plan: she has a baseline of CKD 4, with creatinine of 2.1, GFR 24 from December of 2016, in Sep her creatinine was 2.2, GFR 28 renal function has improved slightly off IVF, she is non oliguric follow electrolytes and renal function avoid nephrotoxins, Continue to monitor status (2) Bilateral renal masses Plan: urology has evaluated s/p Right renal biopsy, results pending (3) H/O kidney transplant Plan: living unrelated renal transplant recipient from 2000 her cyclosporine level is acceptable she is on Prednisone 5 mg daily Mycophenolate 500 mg po BID Cyclosporine 100 mg po BID (4) Anemia Plan: she has severe anemia slightly iron deficient ordered IV venofer x 2 doses (5) HTN (hypertension) Plan: blood pressure elevated overnight, improved today she is on cardizem and lopressor, hydralazine was added stop norvasc (Ania Sampson) Plan patient was seen and examined. Renal function is stable. s/p biopsy of the renal mass. Continue immunosuppressives as ordered. (Antonio Velez MD) Ania Sampson Mar 07, 2017 10:33 Antonio Velez MD Mar 08, 2017 09:52
[2017-03-07] MEDS: ACETAMINOPHEN/HYDROcodone 325 MG/10 MG TAB PO PRN ×2 (11:41→17:25)
[2017-03-07] MEDS: IRON SUCROSE INJ 100 MG in SODIUM CHLORIDE 0.9% INJ 100 ML IV SCH (11:41)
[2017-03-07 12:00] VITALS: BP 177/76; PULSE 52; RESP 20; TEMP 97.1; O2SAT 96
[2017-03-07] MEDS: hydrALAZINE HCL 10 MG TAB PO SCH ×2 (14:55→22:26)
[2017-03-07 16:00] VITALS: BP 156/70; PULSE 53; RESP 20; TEMP 97.2; O2SAT 97
[2017-03-07 20:00] VITALS: BP 178/85; PULSE 50; RESP 18; TEMP 97.1; O2SAT 100
[2017-03-07] MEDS: DILTIAZEM-CD 240 MG CAP ER PO SCH (22:26)
[2017-03-07] MEDS: MAGNESIUM OXIDE 400 MG TAB PO SCH (22:26)
[2017-03-07] MEDS: PRAVASTATIN SOD 40 MG TAB PO SCH (22:26)
[2017-03-08] VITALS: BP 173/79; PULSE 95; RESP 18; TEMP 97.6; O2SAT 100
[2017-03-08] MEDS: cloNIDine HCL 0.1 MG TAB PO PRN (03:05)
[2017-03-08] MEDS: ACETAMINOPHEN/HYDROcodone 325 MG/10 MG TAB PO PRN ×4 (03:07→23:07)
[2017-03-08 04:00] VITALS: BP 191/79; PULSE 103; RESP 18; TEMP 97; O2SAT 94
[2017-03-08] MEDS: hydrALAZINE HCL 10 MG TAB PO SCH ×3 (05:10→22:00)
[2017-03-08] MEDS: MYCOPHENOLATE MOFETIL 500 MG TAB PO SCH ×2 (05:10→18:01)
[2017-03-08] MEDS: cefTRIAXone INJ 1,000 MG in SODIUM CHLORIDE 0.9% INJ 100 ML IV SCH (05:10)
[2017-03-08] MEDS: INSULIN ASPART SUPPLEMENTAL SCALE SQ SCH ×4 (06:53→23:10)
[2017-03-08] MEDS: SALMETEROL XINAFOATE 50 MCG DISKUS INH SCH ×2 (07:46→21:00)
[2017-03-08 08:00] VITALS: BP 143/65; PULSE 48; RESP 12; TEMP 97.7; O2SAT 98
[2017-03-08 08:05] LABS: AUTOMATED NEUTROPHIL # 5.1 TH/MM3 (1.8-7.7); BASOPHIL % 0.5 % (0.0-2.0); EOSINOPHIL # 0.2 TH/MM3 (0-0.4); HEMATOCRIT 21.6 % (35.0-46.0); HEMO FLAGS DIFF FINAL; LYMPH % 17.9 % (9.0-44.0); LYMPHOCYTE # 1.3 TH/MM3 (1.0-4.8); MEAN CELL VOLUME 88.2 FL (80.0-100.0); MEAN CORPUSCULAR HEMOGLOBIN 29.1 PG (27.0-34.0); MONO % 10.6 % (0.0-8.0); PLATELET COUNT 162 TH/MM3 (150-450); RED BLOOD COUNT 2.45 MIL/MM3 (4.00-5.30); RED CELL DISTRIBUTION WIDTH 13.2 % (11.6-17.2); WHITE BLOOD COUNT 7.5 TH/MM3 (4.0-11.0)
[2017-03-08 08:18] LABS: BICARBONATE 27.8 MEQ/L (21.0-32.0); POTASSIUM 4.6 MEQ/L (3.5-5.1)
[2017-03-08] MEDS: FLUTICASONE PROPIONATE 44 MCG/ACT 10.6 GM INHALER INH SCH ×2 (09:00→21:00)
[2017-03-08] MEDS: METOPROLOL TARTRATE 100 MG TAB PO SCH ×2 (09:00→23:05)
[2017-03-08] MEDS: predniSONE 5 MG TAB PO SCH (10:00)
--- NOTE | 2017-03-08 10:00 | HHI.PR ---
Subjective Remarks Follow-up for UTI and renal mass Biopsy still pending, complaining of 8/10 right flank pain, unchanged. No urinary symptoms including dysuria, frequency or urgency. Denies any headache, chest pain or dizziness. She is anxious that the blood pressure is elevated. Objective Vitals Vital Signs Date Time Temp Pulse Resp B/P Pulse Ox O2 Delivery O2 Flow Rate FiO2 03/08/17 08:00 97.7 48 12 143/65 98 03/08/17 04:07 16 03/08/17 04:00 97.0 103 18 191/79 94 03/08/17 00:00 97.6 95 18 173/79 100 03/07/17 20:00 97.1 50 18 178/85 100 03/07/17 16:00 97.2 53 20 156/70 97 03/07/17 12:00 97.1 52 20 177/76 96 I/O 03/07/17 03/07/17 03/07/17 03/08/17 03/08/17 03/08/17 07:00 15:00 23:00 07:00 15:00 23:00 Intake Total 480 ml 720 ml 480 ml Balance 480 ml 720 ml 480 ml Intake Oral 480 ml 720 ml 480 ml # Voids 3 3 1 Result Diagram: 03/08/1761603/08/17 0617 Objective Remarks GENERAL: Not in distress. HEENT: EOMI. hirsutism noted. CARDIOVASCULAR: Regular rate and rhythm. No obvious murmurs to auscultation. RESPIRATORY: Poor effort. GASTROINTESTINAL: Abdomen soft, obese, non tender, right flank tenderness to palpation, nondistended. MUSCULOSKELETAL: Extremities without edema. No obvious deformities. NEUROLOGICAL: Awake, alert and oriented, answers questions appropriately. A/P Problem List: (1) Intractable pain ICD Code: R52 Status: Acute (2) Bilateral renal masses ICD Code: N28.89 Status: Acute (3) H/O kidney transplant ICD Code: Z94.0 Status: Acute (4) UTI (urinary tract infection) ICD Code: N39.0 Status: Acute (5) EDITH (acute kidney injury) ICD Code: N17.9 Status: Acute (6) Anemia ICD Code: D64.9 Status: Acute (7) HTN (hypertension) ICD Code: I10 Status: Acute (8) Leukocytosis ICD Code: D72.829 Status: Acute Assessment and Plan 1. Intractable Flank Pain: CT Abd/Pelvis w/ multiple renal masses, right solid mass, likely etiology of pain complaints. MRI is concerning for renal cell carcinoma. Urology has been consulted for further eval and recs, she is status post core biopsy of the right kidney mass 03/06/17. Continue pain control with oral and intravenous Dilaudid as needed. 2. Renal Masses: Bilateral. CT Abd/Pelvis as above w/ bilateral renal masses in [place] and transplant kidney, right-sided solid mass MRI concerning for renal cell CA, urology following, biopsy results pending. Will discuss with Dr. Torres, might need oncology consultation. 3. H/o Renal Transplant: on chronic immunosuppressant therapy, continue home medications. nephrology following. 4. UTI: Asymptomatic, urine culture grew Streptococcus, not enough colonies, status post 4 doses of ceftriaxone. Finished antibiotic course. 5. EDITH: Acute on Chronic kidney disease stage IV-creatinine stable. IVF stopped. 6. Anemia: Hgb 7.6, previously 11.2 on 09/05/15, will monitor, repeat labs in am, transfuse for Hgb <7. Patient tells me that her primary care doctor is aware and is following. PCP feels that he may be related to her kidney function. 7. HTN: BP 160-180's, most likely secondary to pain, adjusted home medications , continue metoprolol, resume Norvasc at 5 mg daily, continue hydralazine, increase as needed. Discharge Planning She is status post core biopsy of renal mass. Awaiting final recommendations from urology. We'll discuss with urology today. Leslye Le MD Mar 08, 2017 10:00
[2017-03-08] MEDS: DOCUSATE SODIUM 50 MG/SENNA 8.6 MG TAB PO SCH ×2 (10:01→23:05)
[2017-03-08] MEDS: FAMOTIDINE 20 MG TAB PO SCH ×2 (10:01→23:06)
[2017-03-08] MEDS: SERTRALINE HCL 100 MG TAB PO SCH ×2 (10:01→23:05)
[2017-03-08] MEDS: IRON SUCROSE INJ 100 MG in SODIUM CHLORIDE 0.9% INJ 100 ML IV SCH (10:02)
[2017-03-08] MEDS: SODIUM CHLORIDE 0.9% FLUSH 10 ML FLUSH IV FLUSH SCH ×2 (10:09→23:06)
[2017-03-08] MEDS: cycloSPORINE 100 MG CAP PO SCH ×2 (10:36→23:05)
[2017-03-08] MEDS: HYDROCHLOROTHIAZIDE 25 MG TAB PO SCH (10:37)
[2017-03-08] MEDS: amLODIPine BESYLATE 5 MG TAB PO SCH (10:37)
--- NOTE | 2017-03-08 10:37 | HHI.NPPN ---
Subjective General Problems: Anemia Renal Problems: Flank Pain Renal Failure: Chronic, Acute Interval History Renal function is better. No new concerns. Pathology not available yet. ( Ania Sampson) Objective Data Data 03/07/17 03/08/17 18:59 06:59 Intake Total 720 ml 480 ml Balance 720 ml 480 ml Intake Oral 720 ml 480 ml # Voids 3 1 Vital Signs Date Time Temp Pulse Resp B/P Pulse Ox O2 Delivery O2 Flow Rate FiO2 03/08/17 08:00 97.7 48 12 143/65 98 03/08/17 04:07 16 03/08/17 04:00 97.0 103 18 191/79 94 03/08/17 00:00 97.6 95 18 173/79 100 03/07/17 20:00 97.1 50 18 178/85 100 03/07/17 16:00 97.2 53 20 156/70 97 03/07/17 12:00 97.1 52 20 177/76 96 (Ania Sampson) -: 03/08/17 0617 03/08/17 0617 Imaging Last 72 hours Impressions Renal Biopsy CT 03/06/17 0000 Signed Impressions: Service Date/Time: Monday, March 06, 2017 16:26 - CONCLUSION: Uncomplicated CT guided right renal mass biopsy. To Sol MD (Ania Sampson) Physical Exam General Appearance: Well Developed, No Acute Distress, Comfortable, Obese (Ania Sampson) Neck Neck Exam: Neck Supple (Ania Sampson) Pulmonary Resp Exam: Clear Bilaterally, Breath Sounds Equal, No Distress Resp Remarks on continuous oxygen therapy (Ania Sampson) Cardiology CV Exam: Regular, Normal Sinus Rhythm, Good Perfusion (Ania Sampson) Gastrointestinal/Abdomen GI Exam: Soft, Non-Tender, Bowel Sounds Present (Ania Sampson) Musculoskeletal MS Exam: Joints Intact, Normal Tone, Good Strength (Ania Sampson) Integumentary Skin Exam: Warm, Dry, Intact (Ania Sampson) Extremeties Extremities Exam: No Edema, Pedal Pulses Palpable (Ania Sampson) Neurologic Neuro Exam: Alert, Awake, Oriented, Speech Clear, Moving All Extremities ( Ania Sampson) Psychiatric Psych Exam: Appropriate Responses (Ania Sampson) Assessment/Plan Discussed Condition With: Patient Assessment Summary: EDITH/Acute Renal Failure, Anemia of CKD, Hypertension, CKD Stage III, Transplant Kidney Status Problem List: (1) EDITH (acute kidney injury) Plan: she has a baseline of CKD 4, with creatinine of 2.1, GFR 24 from December of 2016 renal function has improved to baseline stable from nephrology perspective off IVF adequate urine output follow electrolytes and renal function avoid nephrotoxins after discharge we will follow in CKD clinic (2) Bilateral renal masses Plan: urology has evaluated s/p Right renal biopsy, results pending can follow outpatient (3) H/O kidney transplant Plan: living unrelated renal transplant recipient from 2000 her cyclosporine level is acceptable she is on Prednisone 5 mg daily Mycophenolate 500 mg po BID Cyclosporine 100 mg po BID (4) Anemia Plan: she has severe persistent anemia slightly iron deficient ordered IV venofer x 2 doses attempt to minimize lab draws denies new bleeding (5) HTN (hypertension) Plan: blood pressure elevated but responds to medications medications adjusted, she is on cardizem, lopressor, and hydralazine; amlodipine was resumed on lasix at home, HCTZ started today to replace home lasix Plan she is cleared for discharge from nephrology perspective (Ania Sampson) Plan patient was seen and examined. HCTZ started for BP control. Renal function is stable. (Antonio Velez MD) Ania Sampson Mar 08, 2017 10:37 Antonio Velez MD Mar 09, 2017 07:50
[2017-03-08 12:00] VITALS: BP 142/65; PULSE 47; RESP 12; TEMP 98; O2SAT 95
[2017-03-08 16:00] VITALS: BP 146/67; PULSE 49; RESP 14; TEMP 97.8; O2SAT 96
[2017-03-08 20:00] VITALS: BP 162/67; PULSE 55; RESP 18; TEMP 96.4; O2SAT 100
[2017-03-08] MEDS: DILTIAZEM-CD 240 MG CAP ER PO SCH (23:05)
[2017-03-08] MEDS: MAGNESIUM OXIDE 400 MG TAB PO SCH (23:05)
[2017-03-08] MEDS: PRAVASTATIN SOD 40 MG TAB PO SCH (23:05)
[2017-03-09] VITALS: BP 185/74; PULSE 58; RESP 17; TEMP 97.3; O2SAT 97
[2017-03-09 04:00] VITALS: BP 159/67; PULSE 55; RESP 18; TEMP 97.6; O2SAT 95
[2017-03-09] MEDS: cefTRIAXone INJ 1,000 MG in SODIUM CHLORIDE 0.9% INJ 100 ML IV SCH (04:36)
[2017-03-09] MEDS: hydrALAZINE HCL 10 MG TAB PO SCH ×2 (05:53→12:54)
[2017-03-09] MEDS: MYCOPHENOLATE MOFETIL 500 MG TAB PO SCH (05:54)
[2017-03-09] MEDS: INSULIN ASPART SUPPLEMENTAL SCALE SQ SCH ×2 (05:56→12:54)
[2017-03-09] MEDS: amLODIPine BESYLATE 5 MG TAB PO SCH (08:31)
[2017-03-09] MEDS: DOCUSATE SODIUM 50 MG/SENNA 8.6 MG TAB PO SCH (08:31)
[2017-03-09] MEDS: cycloSPORINE 100 MG CAP PO SCH (08:31)
[2017-03-09] MEDS: FAMOTIDINE 20 MG TAB PO SCH (08:31)
[2017-03-09] MEDS: ACETAMINOPHEN/HYDROcodone 325 MG/10 MG TAB PO PRN ×2 (08:31→15:31)
[2017-03-09] MEDS: HYDROCHLOROTHIAZIDE 25 MG TAB PO SCH (08:31)
[2017-03-09] MEDS: predniSONE 5 MG TAB PO SCH (08:31)
[2017-03-09] MEDS: SERTRALINE HCL 100 MG TAB PO SCH (08:32)
[2017-03-09] MEDS: SODIUM CHLORIDE 0.9% FLUSH 10 ML FLUSH IV FLUSH SCH (08:48)
[2017-03-09] MEDS: METOPROLOL TARTRATE 100 MG TAB PO SCH (08:48)
[2017-03-09] MEDS: FLUTICASONE PROPIONATE 44 MCG/ACT 10.6 GM INHALER INH SCH (08:48)
[2017-03-09] MEDS: SALMETEROL XINAFOATE 50 MCG DISKUS INH SCH (08:48)
[2017-03-09 08:49] VITALS: BP 143/60; PULSE 51; RESP 14; TEMP 96.7; O2SAT 96
--- NOTE | 2017-03-09 11:01 | HHI.DCPOC ---
Discharge Care Plan Diagnosis: (1) Renal cell carcinoma Additional Problems Kidney cancer Goals to Promote Your Health * To prevent worsening of your condition and complications * To maintain your health at the optimal level. Directions to Meet Your Goals Take your medications as prescribed. Start taking iron supplements as prescribed and have your regular doctor check her iron level under blood counts when you see him. Follow your dietary instruction Follow activity as directed Keep your appointments as scheduled Take your immunizations and boosters as scheduled If your symptoms worsen call your PCP, if no PCP go to Urgent Care Center or Emergency Room Smoking is Dangerous to Your Health. Avoid second hand smoke Call the 24-hour hour crisis hotline for domestic abuse at Dread Whitlock MD Mar 09, 2017 11:01
--- NOTE | 2017-03-09 11:13 | RADRPT ---
EXAM DATE/TIME: 03/09/2017 10:49 [facility] COMPARISON: No previous studies available for comparison. INDICATIONS : Evaluate chest for cancer MEDICAL HISTORY : Hypertension. Cardiovascular disease Diabetes mellitus type 2. Asthma SURGICAL HISTORY : Cholecystectomy. section. Discectomy, lumbar. Renal transplant. ENCOUNTER: Initial ACUITY: 4 - 6 days PAIN SCORE: 0/10 LOCATION: chest FINDINGS: Frontal and lateral views of the chest demonstrate a normal-sized cardiac silhouette. There is a blun ting of the right costophrenic sulcus. No pneumothorax or airspace consolidation is visualized. The b ones and soft tissues demonstrate no acute finding. There are degenerative changes of the thoracic sp ine. CONCLUSION: Small right pleural effusion. No other acute finding is identified. To Sol MD on March 09, 2017 at 11:10 Board Certified Radiologist. This report was verified electronically.
[2017-03-09] MEDS ORDERED: METO100T PO (11:20)
[2017-03-09] MEDS ORDERED: HYDR25TA5 PO (11:20)
[2017-03-09] MEDS ORDERED: ASCO100037 OROPHARYNG (11:26)
[2017-03-09] MEDS ORDERED: FERR325T8 PO (11:27)
--- NOTE | 2017-03-09 11:36 | HHI.DS ---
Discharge Summary Admission Date Mar 05, 2017 at 16:05 Discharge Date: Mar 09, 2017 Admitting Diagnosis dehydration/renal masses/intractable abdominal pain (1) Intractable pain ICD Code: R52 Diagnosis: Secondary (2) Bilateral renal masses ICD Code: N28.89 Diagnosis: Secondary (3) H/O kidney transplant ICD Code: Z94.0 Diagnosis: Secondary (4) UTI (urinary tract infection) ICD Code: N39.0 Diagnosis: Secondary (5) EDITH (acute kidney injury) ICD Code: N17.9 Diagnosis: Secondary (6) Anemia ICD Code: D64.9 Diagnosis: Secondary (7) HTN (hypertension) ICD Code: I10 Diagnosis: Secondary (8) Leukocytosis ICD Code: D72.829 Diagnosis: Secondary (9) Renal cell carcinoma ICD Code: C64.9 Diagnosis: Principal Procedures CT guided bx of right kidney complex cyst showing RCC Brief History - From Admission This is a 56-year-old female with a PMH of Lupus, Depression, Rheumatoid Arthritis, HTN and h/o Renal Transplant who presented to the ER with complaints of severe right-sided flank pain x1 day. Denies fever, chills, nausea, vomiting , diarrhea or urinary symptoms. On arrival, BP 181/102, HR 58, O2 sat 100% on RA, Afebrile. WBC 12.3. Hemoglobin 8.8, previously 11.2 on 09/05/15. Creatinine 2.20, previously 1.46 on 09/05/15. UA with UTI. CT Abd/Pelvis w/ multiple masses Trop both [place] kidneys and transplant kidney, density of mass and right [place] kidney concerning for solid mass, renal ultrasound recommended. S/p multiple doses of IV Dilaudid in ER w/ minimal improvement in pain complaints. Follows w/ Dr. Velez as outpatient. CBC/BMP: 03/08/17 0617 03/08/17 0617 Significant Findings Laboratory Tests Test 03/07/17 03/08/17 01:47 06:17 Red Blood Count 2.68 MIL/MM3 2.45 MIL/MM3 (4.00-5.30) (4.00-5.30) Hemoglobin 7.6 GM/DL 7.1 GM/DL (11.6-15.3) (11.6-15.3) Hematocrit 23.7 % 21.6 % (35.0-46.0) (35.0-46.0) Neutrophils (%) (Auto) 73.5 % (16.0-70.0) Monocytes (%) (Auto) 8.6 % (0.0-8.0) 10.6 % (0.0-8.0) Blood Urea Nitrogen 54 MG/DL (7-18) 54 MG/DL (7-18) Creatinine 2.38 MG/DL 2.18 MG/DL (0.50-1.00) (0.50-1.00) Estimat Glomerular Filtration 21 ML/MIN (>89) 23 ML/MIN (>89) Rate Random Glucose 254 MG/DL 235 MG/DL (74-106) (74-106) Albumin 2.6 GM/DL (3.4-5.0) Imaging Last Impressions Chest X-Ray 03/09/17 0000 Signed Impressions: Service Date/Time: March 10:49 - CONCLUSION: Small right pleural effusion. No other acute finding is identified. To Sol MD Renal Biopsy CT 03/06/17 0000 Signed Impressions: Service Date/Time: Monday, March 06, 2017 16:26 - CONCLUSION: Uncomplicated CT guided right renal mass biopsy. To Sol MD Abdomen/Pelvis CT 03/04/17 0022 Signed Impressions: Service Date/Time: Saturday, March 04, 2017 01:39 - CONCLUSION: Multiple masses throughout both the [place] kidneys and the transplant kidney. The density of the mass in the right [place] kidney is concerning for a solid mass. An outpatient renal ultrasound is recommended. Unremarkable bowel gas pattern without obvious etiology for abdominal pain. Cam Cristina MD Renal Ultrasound 03/04/17 0000 Signed Impressions: Service Date/Time: Saturday, March 04, 2017 07:40 - CONCLUSION: Inconclusive ultrasound. Mass in the [place] kidney on the right is suspicious. This could be confirmed with an MRI without contrast. Sherif Diaz MD FACR Abdomen MRI 03/04/17 0000 Signed Impressions: Service Date/Time: Saturday, March 04, 2017 11:28 - CONCLUSION: Complex mass upper pole of the right kidney, indeterminate renal cell carcinoma. This is new from the most recent comparison study. If there are no intervening studies evident, options for further workup include contrasted MRI which does require consenting given the altered renal function as well as biopsy. Sherif Diaz MD FACR PE at Discharge Vital signs: Reviewed, afebrile, saturating well on room air, slightly hypertensive normotensive GENERAL: Resting comfortably in bed EYES: No scleral icterus. No injection or drainage. CARDIOVASCULAR: Regular rate and rhythm without murmurs, gallops, or rubs. RESPIRATORY: Breath sounds equal bilaterally. No accessory muscle use. GASTROINTESTINAL: Abdomen soft, non-tender, nondistended. Mild flank pain upon percussion of CVA MUSCULOSKELETAL: No cyanosis, or edema. Hospital Course Patient was admitted and started on IV hydration and IV pain control. Her imaging workup was remarkable for cystic bilateral renal masses, urology was consulted along with nephrology. Left transplant kidney mainly showed simple cystic lesions, whereas a CT-guided biopsy was done demonstrating renal cell carcinoma of her right [place] kidney, clear cell grade 2/4. Motor time of the patient's path results, her pain had become much more tolerable and she was transitioned to orals. Her blood pressure was also elevated during her stay and had become stabilized with nephrology's assistance. She had received an IV iron infusion. Chest x-ray performed did not show any metastatic lesions. Path results were discussed with urology and patient, plan is to have patient follow-up with urology outpatient after she gets a metastatic workup starting off with a bone scan total body. Plan of care was discussed with patient in detail, the importance of follow-up appointments and outpatient testing was emphasized as this would affect her plan of care. Patient was cleared for discharge from both nephrology and urology standpoints. Patient has been maximal benefit from hospitalization and is clinically stable for discharge. Nephrology confirmed that they will contact patient and have her scheduled for follow-up appointment in roughly 1 month. Pt Condition on Discharge: Fair Discharge Disposition: Discharge Home Discharge Time: > 30 minutes Discharge Instructions DIET: Follow Instructions for: Iron Rich Diet Speech Therapy-Diet Recommends: Regular Activities you can perform: Regular-No Restrictions Follow up Referrals: PCP Follow-up - 2 Weeks Urology - 03/16/17 with Chinedu Torres MD Please ensure pt has bone scan scheduled at least 2 days before this f/u appt New Orders: HGB & HCT - 3 Weeks NM Bone Scan Whole Body - 2-3 Days New Medications: Ascorbic Acid (Vitamin C) 1,000 Mg Tab.chew 1 TAB OROPHARYNG BID take by mouth twice a day with iron pill Nutritional Supplement #60 Ref 0 TAB Ferrous Sulfate (Ferrous Sulfate) 325 Mg (65 Mg Iron) Tablet 325 MG PO BIDPC take by mouth twice a day with vitamin C pill Nutritional Supplement #60 Ref 0 TAB Hydrocodone-Acetaminophen ([place]) 7.5-325 mg Tab 1 TAB PO Q6H PRN PAIN #30 Ref 0 TAB Hydrochlorothiazide (Hydrochlorothiazide) 25 Mg Tab 25 MG PO DAILY Blood Pressure Management #30 TAB Metoprolol Tartrate (Metoprolol Tartrate) 100 Mg Tab 100 MG PO BID Blood Pressure Management #60 Ref 0 TAB Continued Medications: Albuterol 18 GM Inh (Ventolin Hfa 18 GM Inh) 90 Mcg/Act Aer 2 PUFF INH Q4H PRN SHORTNESS OF BREATH #1 Ref [address] (Aspir-81) 81 Mg Tabdr Calcium Carbonate/Vitamin D3 (Calcium 500 + Vit D Caplet) 1 Each Tablet Cyclosporine Modified (Neoral) 100 Mg Cap 125 MG PO Ref 0 CAP Diltiazem CD 24 HR (Cardizem CD 24 HR) 240 Mg Caper 240 MG PO HS #30 Ref 0 CAP Famotidine (Pepcid) 20 Mg Tab 20 MG PO BID #60 Ref 0 TAB Fluticasone 10.6 GM Inh (Flovent Hfa 10.6 GM Inh) 44 Mcg/Act Inh 2 PUFF INH BID Use daily at the same time. Asthma Management #1 Ref 0 INHALER Insulin Human NPH Inj (Humulin N Inj) 1,000 Unit/10 Ml Vial 35 UNITS SQ Blood Sugar Management #10 Ref 0 ML Insulin Lispro (Human) Inj (Humalog Inj) 1,000 Unit/10 Ml Vial 30 UNITS SQ TIDAC Blood Sugar Management #1 Ref 0 VIAL Magnesium (Magnesium) 400 Mg Tab 400 MG PO HS Nutritional Supplement Ref 0 TAB Metoprolol Tartrate (Metoprolol Tartrate) 100 Mg Tab 100 MG PO BID #60 Ref 0 TAB Multiple Vitamins W/ Minerals (Womens Daily Formula) 1 Tab Tab Mycophenolate (Cellcept) 500 Mg Tab 500 MG PO BID Immunosuppression #120 Ref 0 TAB Commodore-3 Fatty Acids/Fish Oil (Fish Oil 1,000 mg Softgel) 1 Each Capsule Potassium Chloride ER (Potassium Chloride ER) 20 Meq Tab 20 MEQ PO DAILY Electrolyte Replacement #30 Ref 0 TAB Prednisone (Prednisone) 5 Mg Tab 5 MG PO DAILY Ref 0 TAB Salmeterol Inh (Serevent Diskus Inh) 50 Mcg/Act Aero 50 MCG INH BID #1 Ref 0 INHALER Sertraline (Zoloft) 100 Mg Tab 200 MG PO BID #30 Ref 0 TAB Simvastatin (Zocor) 20 Mg Tab 20 MG PO HS Cholesterol Management #30 Ref 0 TAB Discontinued Medications: Furosemide (Lasix) 20 Mg Tab 20 MG PO DAILY #30 Ref 0 TAB Dread Whitlock MD Mar 09, 2017 11:36
[2017-03-09 12:00] VITALS: BP 115/55; PULSE 50; RESP 18; TEMP 97.2; O2SAT 92
--- NOTE | 2017-03-09 12:02 | HHI.NPPN ---
Subjective General Problems: Anemia Renal Problems: Flank Pain Renal Failure: Chronic, Acute Interval History Unfortunately the biopsy came back positive for renal cell carcinoma. She has no new complaints today. (Ania Sampson) Objective Data Data 03/08/17 03/09/17 19:00 07:00 Intake Total 708 ml 150 ml Balance 708 ml 150 ml Intake Oral 708 ml IV Total 150 ml # Voids 2 1 # Bowel Movements 0 Vital Signs Date Time Temp Pulse Resp B/P Pulse Ox O2 Delivery O2 Flow Rate FiO2 03/09/17 08:49 96.7 51 14 143/60 96 03/09/17 04:00 97.6 55 18 159/67 95 03/09/17 00:00 97.3 58 17 185/74 97 03/08/17 20:00 96.4 55 18 162/67 100 03/08/17 16:00 97.8 49 14 146/67 96 03/08/17 12:00 98.0 47 12 142/65 95 (Ania Sampson) -: 03/08/17 0617 03/08/17 0617 Imaging Last 72 hours Impressions Chest X-Ray 03/09/17 0000 Signed Impressions: Service Date/Time: March 10:49 - CONCLUSION: Small right pleural effusion. No other acute finding is identified. To Sol MD (Ania Sampson) Physical Exam General Appearance: Well Developed, No Acute Distress, Comfortable, Obese (Ania Sampson) Neck Neck Exam: Neck Supple (Ania Sampson) Pulmonary Resp Exam: Clear Bilaterally, Breath Sounds Equal, No Distress Resp Remarks on continuous oxygen therapy (Ania Sampson) Cardiology CV Exam: Regular, Normal Sinus Rhythm, Good Perfusion (Ania Sampson) Gastrointestinal/Abdomen GI Exam: Soft, Non-Tender, Bowel Sounds Present (Ania Sampson) Musculoskeletal MS Exam: Joints Intact, Normal Tone, Good Strength (Ania Sampson) Integumentary Skin Exam: Warm, Dry, Intact (Ania Sampson) Extremeties Extremities Exam: No Edema, Pedal Pulses Palpable (Ania Sampson) Neurologic Neuro Exam: Alert, Awake, Oriented, Speech Clear, Moving All Extremities ( Ania Sampson) Psychiatric Psych Exam: Appropriate Responses (Ania Sampson) Assessment/Plan Discussed Condition With: Patient Assessment Summary: EDITH/Acute Renal Failure, Anemia of CKD, Hypertension, CKD Stage III, Transplant Kidney Status Problem List: (1) EDITH (acute kidney injury) Plan: she has a baseline of CKD 4, with creatinine of 2.1, GFR 24 from December of 2016 renal function had returned to baseline tolerating diet/PO fluids she is non oliguric stable from nephrology perspective , cleared for discharge after discharge we will follow in CKD clinic in 4-6 weeks (2) Bilateral renal masses Plan: urology has evaluated s/p Right renal biopsy, renal cell CA diagnosed she is to follow with urology outpatient (3) H/O kidney transplant Plan: living unrelated renal transplant recipient from 2000 her cyclosporine level is acceptable she is on Prednisone 5 mg daily Mycophenolate 500 mg po BID Cyclosporine 100 mg po BID (4) Anemia Plan: she has persistent anemia given venofer (5) HTN (hypertension) Plan: blood pressure improved to be discharged on Cardizem, Lopressor, and hydralazine; HCTZ added to replace lasix at home norvasc stopped (Ania Sampson) Plan patient was seen and examined. Patient with renal cell carcinoma. Workup for metastases and urology followup as outpatient. (Antonio Velez MD) Ania Sampson Mar 09, 2017 12:02 Antonio Velez MD Mar 09, 2017 21:47
== END 2017-03-09 16:50 | disposition home or self-care (01) | DRG 687 ==
LOC: NEPE 23:29 → NEDA 03-04 03:01 → NEPFCDU 03-04 05:28 → OBSVTOIN 03-05 16:05 → HOCA 03-05 18:33
PROVIDERS: ADMIT Hospitalist; ATTEND Hospitalist
PROC: 0TB03ZX Excision of Right Kidney, Percutaneous Approach, Diagnostic (ICD-10-PCS; principal; 2017-03-07)
DX: C64.1 Malignant neoplasm of right kidney, except renal pelvis (principal); N17.9 Acute kidney failure, unspecified; N18.4 Chronic kidney disease, stage 4 (severe); M32.9 Systemic lupus erythematosus, unspecified; E11.22 Type 2 diabetes mellitus with diabetic chronic kidney disease; Z94.0 Kidney transplant status; E86.0 Dehydration; N39.0 Urinary tract infection, site not specified; I12.9 Hypertensive chronic kidney disease with stage 1 through stage 4 chronic kidney disease, or unspecified chronic kidney disease; D63.1 Anemia in chronic kidney disease; E61.1 Iron deficiency; M06.9 Rheumatoid arthritis, unspecified; E66.9 Obesity, unspecified; M19.90 Unspecified osteoarthritis, unspecified site; F32.9 Major depressive disorder, single episode, unspecified; E78.00 Pure hypercholesterolemia, unspecified; G47.30 Sleep apnea, unspecified
CPT/HCPCS: 50200; 71020; 74176; 74181; 76775; 77012; 80048; 80053; 80069; 80158; 81001; 82948; 83540; 83550; 85014; 85018; 85025; 85610; 85730; 87086; 88304; 88305; 90732; 96372; 96374; 96375; 96376; G0378; J0696; J1170; J1756; J1815; J2060; J2250; J2405; J3010; J7030; J7040; J7502; J7512; J7515; J7517

== ENCOUNTER → 2017-05-02 | Outpatient (CLI) | payer MEDICARE, MEDICAID ==
[~2017-05-02] MED LIST changes: -AMBI10TA PO; +AMLO5 PO; -ASPI81 PO; +ASPI81TA81; +ASPI81TA81 PO; +CALCTAB25; +CALCTAB25 PO; -CARD240C6 PO; -CELL500T PO; +DOCU1CAP39 PO; +EQ N NASAL; -FAMO1TAB36 PO; +FAMO1TAB37 PO; +FERR325T20 PO; -HUMA100I SC; +HUMALOG SQ; +HYDR-3288 PO; +HYDR-3516 PO; -HYDR-3533 PO; +HYDR25TA5 PO; -INSU100V2 SQ; +INSU100V3 SQ; +INSU1MIS15; +LEVEMIR SQ; -LORA-474 PO; +MAGN1TAB14 PO; +METO25TA3 PO; +METO50TA PO; +MYCO500 PO; +NOVOLOGP2 SQ; -OS-CTAB3 PO; +POTA-163 PO; -POTA-243 PO; -PRED5 PO; +PRED5TAB PO; -RANI150T PO; +SENN1TAB PO; -SERT100 PO; -SIMV20 PO; -TAB-TAB PO; -THEOPHYLLINE PO; +ULTR50TA5 PO; +WOMETAB2; +WOMETAB2 PO; -Z.0.OXYGEN INH; +ZOCO20TA PO; +ZOFR4TAB3 SL; +ZOLO100T PO
[2017-05-02 12:02] LABS: AUTOMATED NEUTROPHIL # 5.4 TH/MM3 (1.8-7.7); BASOPHIL # 0.1 TH/MM3 (0-0.2); BASOPHIL % 1.3 % (0.0-2.0); EOSINOPHIL # 0.2 TH/MM3 (0-0.4); EOSINOPHIL % 2.3 % (0.0-4.0); HEMATOCRIT 23.2 % (35.0-46.0); HEMO FLAGS DIFF FINAL; LYMPH % 18.5 % (9.0-44.0); LYMPHOCYTE # 1.5 TH/MM3 (1.0-4.8); MEAN CELL VOLUME 87.3 FL (80.0-100.0); MEAN CORPUSCULAR HEMOGLOBIN 28.3 PG (27.0-34.0); MEAN CORPUSCULAR HGB CONC 32.4 % (32.0-36.0); MONO % 9.8 % (0.0-8.0); NEUT % 68.1 % (16.0-70.0); PLATELET COUNT 162 TH/MM3 (150-450); RED BLOOD COUNT 2.65 MIL/MM3 (4.00-5.30); RED CELL DISTRIBUTION WIDTH 13.9 % (11.6-17.2)
[2017-05-02 12:11] LABS: APTT (PATIENT) 24.5 SEC (24.3-30.1); PROTHROMBIN TIME - PATIENT 10.7 SEC (9.8-11.6)
[2017-05-02 12:46] LABS: ALT (GPT) 14 U/L (10-53); ANION GAP 7 MEQ/L (5-15); BICARBONATE 27.5 MEQ/L (21.0-32.0); BLOOD UREA NITROGEN 57 MG/DL (7-18); CHLORIDE 104 MEQ/L (98-107); GLOMERULAR FILTRATION RATE 18 ML/MIN (>89); GLUCOSE,FASTING 215 MG/DL (74-99); POTASSIUM 4.6 MEQ/L (3.5-5.1); SODIUM (NA) 138 MEQ/L (136-145)
[2017-05-02 12:47] LABS: AST (GOT) 9 U/L (15-37)
[2017-05-02 12:49] LABS: ALKALINE PHOSPHATASE 82 U/L (45-117); TOTAL BILIRUBIN ADULT 0.2 MG/DL (0.2-1.0)
--- NOTE | 2017-05-03 15:38 | EKG ---
Date Performed: 05/02/2017 Time Performed: 12:40:06 PTAGE: 56 years EKG: SINUS BRADYCARDIA LOW QRS VOLTAGE IN PRECORDIAL LEADS DELAYED R WAVE PROGRESSION BORDERLINE ECG Compared to prior tracing no significant change DOCTOR: Carl Tran Interpretating Date/Time 05/03/2017 15:37:22
== END ==
LOC: CPRE 11:26
PROVIDERS: ATTEND Urology
DX: Z01.810 Encounter for preprocedural cardiovascular examination (principal); C64.1 Malignant neoplasm of right kidney, except renal pelvis; R94.31 Abnormal electrocardiogram [ECG] [EKG]; Z01.812 Encounter for preprocedural laboratory examination
CPT/HCPCS: 36415; 80053; 85025; 85610; 85730; 93005

== ENCOUNTER 2017-05-08 14:28 | Inpatient (IN) | payer MEDICARE, MEDICAID ==
[~2017-05-08] VITALS: Ht 182.9 cm; Wt 140.7 kg
[~2017-05-08 14:28] MED LIST changes: -AMLO5 PO; -ASPI81TA81 PO; -CALCTAB25 PO; -DOCU1CAP39 PO; -EQ N NASAL; -FERR325T20 PO; -HYDR-3516 PO; -HYDR25TA5 PO; -INSU1MIS15; -LEVEMIR SQ; -METO100T PO; -METO25TA3 PO; -NOVOLOGP2 SQ; -SENN1TAB PO; -ULTR50TA5 PO; -WOMETAB2 PO
[2017-05-08] MEDS ORDERED: HYDROmorphone HCL PF 1 MG/ML VIAL IV PUSH PRN (15:45)
[2017-05-08] MEDS: HYDROmorphone HCL PF 2 MG/ML VIAL IV PUSH PRN ×2 (15:56→21:35)
[2017-05-08] MEDS: ONDANSETRON HCL 4 MG/2 ML VIAL IV PUSH PRN ×2 (15:56→21:35)
[2017-05-08 16:24] VITALS: BP 182/80; PULSE 63; RESP 18; TEMP 98.4; O2SAT 95
[2017-05-08 19:59] VITALS: BP 156/86; PULSE 53; RESP 19; TEMP 97.3; O2SAT 96
[2017-05-08 23:15] VITALS: BP 145/72; PULSE 97; RESP 18; TEMP 97.6; O2SAT 96
[2017-05-08 23:50] VITALS: BP 147/71; PULSE 98; RESP 16; TEMP 97.4; O2SAT 96
[2017-05-09] VITALS (9 sets, daily range): BP systolic 100–163; BP diastolic 65–79; PULSE 51–89; RESP 16–20; TEMP 97–98.2; O2SAT 94–98
[2017-05-09] MEDS: ONDANSETRON HCL 4 MG/2 ML VIAL IV PUSH PRN ×2 (07:28→21:37)
[2017-05-09] MEDS: HYDROmorphone HCL PF 2 MG/ML VIAL IV PUSH PRN (07:29)
[2017-05-09] MEDS ORDERED: MIDAZOLAM HCL 2 MG/2 ML VIAL IV ONE (08:15)
[2017-05-09] MEDS ORDERED: ceFAZolin 1 GM ADDVANTAGE VIAL IV ONE (08:15)
[2017-05-09] MEDS ORDERED: ONDANSETRON HCL 4 MG/2 ML VIAL IV PUSH ONE (08:15)
[2017-05-09] MEDS ORDERED: LIDOCAINE HCL 1% PF 5 ML AMPULE OTHER ONE (08:15)
[2017-05-09] MEDS ORDERED: LACTATED RINGER'S 1000 ML INJ 2,000 ML IV ONE (08:15)
[2017-05-09] MEDS ORDERED: ROCURONIUM INJ 50 MG/5 ML SYRINGE IV PUSH ONE ×2 (08:15→15:52)
[2017-05-09] MEDS ORDERED: ePHEDrine/NS 25 MG/5 ML SYR IV ONE (08:15)
[2017-05-09] MEDS ORDERED: GLYCOPYRROLATE 1 MG/5 ML SYRINGE IV PUSH ONE (08:15)
[2017-05-09] MEDS ORDERED: PROPOFOL 200 MG/20 ML AMP IV ONE (08:15)
[2017-05-09] MEDS ORDERED: NORMOSOL R INJ 1,000 ML IV ONE (08:15)
[2017-05-09] MEDS ORDERED: INFLUENZA VIRUS VACCINE (QUADRIVALENT) 0.5 ML SYR IM ONE (09:00)
[2017-05-09] MEDS ORDERED: ceFAZolin 2 GM PREMIX 50 ML ONE (11:50)
[2017-05-09] MEDS ORDERED: RESP: ALBUTEROL 2.5 MG/3 ML NEB (PRN) ONE (13:06)
[2017-05-09] MEDS ORDERED: ceFAZolin INJ 1,000 MG VIAL IV ONE ×2 (13:45→15:53)
[2017-05-09] MEDS ORDERED: ceFAZolin INJ 1,000 MG VIAL ONE (15:52)
[2017-05-09] MEDS ORDERED: ceFAZolin 3,000 MG/NS 100 ML IV ONE ×2 (16:45)
[2017-05-09] MEDS ORDERED: SUGAMMADEX SODIUM 200 MG/2 ML VIAL IV PUSH ONE ×2 (17:09)
[2017-05-09 17:52] LABS: BLOOD GAS BASE EXCESS -0.6 mmol/L (-2-2); BLOOD GAS CARBOXYHEMOGLOBIN 2.4 % (0-4); BLOOD GAS HCO3 24 mmol/L (22-26); BLOOD GAS METHEMOGLOBIN 1.1 % (0-2); BLOOD GAS O2 HGB SATURATION 96 % (90-100); BLOOD GAS PCO2 40 mmHg (38-42); BLOOD GAS PO2 151 mmHg (61-120); BLOOD GAS TOTAL HGB 11.6 G/DL (12.0-16.0); CRITICAL VALUE NO; OXYGEN DEVICE O.R GAS; TEMP CORR TO 98.6
--- NOTE | 2017-05-09 19:07 | PD.OP ---
Operative Report Date of Surgery: May 09, 2017 Preoperative Diagnosis: (1) Renal cell carcinoma of right kidney Postoperative Diagnosis: (1) Renal cell carcinoma of right kidney Procedure: Robot-assisted laparoscopic right radical nephrectomy Anesthesia: General Surgeon: Chinedu Torres Crystal Cutter(s): Patric Jerry Operation and Findings: Indication for procedure: Case of a pleasant 56-year-old female who is status post a kidney transplant for chronic kidney disease and recently discovered to have a cystic mass originating from the upper pole of the [place] right kidney. The mass was biopsied and confirmed to be renal cell carcinoma. Patient presents now to undergo a robot-assisted laparoscopic right radical nephrectomy. Operative procedure in detail: Patient was brought to the operating room suite and placed supine on the OR table. She was then placed under general tracheal anesthesia. She was then repositioned in the left lateral recumbent position and held in place with a beanbag. The table was flexed to extend the pelvis away from the thorax and the beanbag activated. All pressure points were adequately padded. The patient was next prepped and draped in normal sterile fashion. After appropriate timeout was undertaken I proceeded with placement of the laparoscopic ports. Initially a pneumoperitoneum was created utilizing the Veress needle in standard fashion. Pneumoperitoneum was inflated to pressure 15 mmHg and the 10 mm camera port was then placed under direct vision with the visual obturator. Due to the size of the patient the ports were all placed lateral to the midline on the patient's right side. Once the camera port was in position the 3 remaining robotic arm ports and the delinquent tax collection assistant port was placed under direct vision. At this point in time I repositioned myself over at the [email or web address] console and Dr. Patric Jerry related to bedside to complete the Dr. the robot and to construction management assistant. I then proceeded with mobilizing the patient's right colon to expose the retroperitoneum. The inferior liver edge was interfering with visualization and a 5 mm delinquent tax collection assistant port was placed by Dr. Jerry so that a second locking grasper could be utilized to retract the liver in a cephalad direction. The end of the tractor was anchored to the inferior aspect of my incision along the line of Toldt. The kidney was then mobilized inferiorly and also medially around the protruding mass. The hilar vessels were identified and ligated with the endovascular skin stapling device. The kidney was then further mobilized utilizing the robotic vessel sealer instrument. Once the specimen was fully mobilized the large Endo Catch specimen bag was utilized and the specimen placed into the bag. The pneumoperitoneum was dropped down to 5 mmHg to check for active bleeding and none was noted. A IVELISSE drain was then placed via one of the robotic arm port sites and Morris was utilized as a precautionary measure at the surgical site for hemostasis. Next the robot was undocked and all ports removed exception of the delinquent tax collection assistant port and the camera port. I re- scrubbed and position herself over at the bedside. I then connected the camera and delinquent tax collection assistant port longitudinally with a #15 blade to create one incision. The specimen was then delivered out of this incision and sent off to pathology. This incision was then closed in multiple layers utilizing #1 Vicryl for the fascial layers, 3-0 chromic for the subcutaneous tissue and skin mckenzie for the skin edges. The remaining port sites were then closed by reapproximating the skin edges with a stapling device. Sterile dressings were placed at all wound sites as well as dressing around the IVELISSE drain site which was secured to the skin as well. The patient tolerated the procedure without complications and was transferred to PACU in satisfactory condition. Estimated blood loss was 100 cc. Chinedu Torres MD May 09, 2017 19:07
[2017-05-09] MEDS: SODIUM CHLOR 0.9% 1000 ML INJ 1,000 ML IV SCH (19:09)
[2017-05-09] MEDS ORDERED: DO NOT ADM ANY ANTICOAGULANT DRUGS PRN (19:10)
[2017-05-09] MEDS ORDERED: SODIUM CHLORIDE 0.9% FLUSH 10 ML FLUSH IV FLUSH PRN (19:15)
[2017-05-09] MEDS ORDERED: HYDROmorphone HCL PCA 6 MG/30 ML IV SCH (19:15)
[2017-05-09] MEDS ORDERED: ALBUTEROL SULFATE 90 MCG/ACT HFA 8 GM INHALER INH PRN (19:15)
[2017-05-09] MEDS ORDERED: Post-op Orders (for Pharmacy) MISC XX ONE (19:15)
[2017-05-09] MEDS ORDERED: NALOXONE HCL 0.4 MG/ML AMP IV PUSH PRN ×2 (19:15)
[2017-05-09] MEDS ORDERED: HEPARIN SODIUM - SQ 10,000 UNITS/ML VIAL SQ SCH (20:00)
[2017-05-09] MEDS: SODIUM CHLORIDE 0.9% FLUSH 10 ML FLUSH IV FLUSH SCH (21:00)
[2017-05-09] MEDS: SALMETEROL XINAFOATE 50 MCG DISKUS INH SCH (21:00)
[2017-05-09] MEDS: FLUTICASONE PROPIONATE 44 MCG/ACT 10.6 GM INHALER INH SCH (21:00)
[2017-05-09] MEDS ORDERED: GLUCAGON 1 MG/ML VIAL OTHER PRN (23:00)
[2017-05-09] MEDS ORDERED: DEXTROSE 50% IN WATER 50 ML VIAL(D50) IV PUSH PRN (23:00)
[2017-05-10] VITALS (22 sets, daily range): BP systolic 130–183; BP diastolic 52–86; PULSE 57–70; RESP 16–20; TEMP 98.2–99.4; O2SAT 94–99
[2017-05-10] MEDS: SODIUM CHLOR 0.9% 1000 ML INJ 1,000 ML IV SCH ×3 (03:09→19:47)
[2017-05-10] MEDS: LOW DOSE INSULIN NOVOLIN REGULAR SUPPLEMENTAL SCALE SQ SCH ×4 (05:35→18:00)
[2017-05-10] MEDS: PCA - TOTAL MG DILAUDID DELIVERED PER SHIFT OTHER SCH ×3 (05:36→21:57)
[2017-05-10] MEDS: FLUTICASONE PROPIONATE 44 MCG/ACT 10.6 GM INHALER INH SCH ×2 (08:52→21:00)
[2017-05-10] MEDS: SALMETEROL XINAFOATE 50 MCG DISKUS INH SCH ×2 (08:53→21:00)
[2017-05-10] MEDS: SODIUM CHLORIDE 0.9% FLUSH 10 ML FLUSH IV FLUSH SCH ×2 (09:00→21:00)
[2017-05-10] MEDS ORDERED: EQ N NASAL (09:47)
[2017-05-10 10:30] LABS: HEMATOCRIT 26.5 % (35.0-46.0); REVIEW FLAG FINAL
[2017-05-10 10:54] LABS: BICARBONATE 26.5 MEQ/L (21.0-32.0); POTASSIUM 4.8 MEQ/L (3.5-5.1)
[2017-05-10] MEDS ORDERED: PHENYLEPHRINE HCL 1% NASAL SPRAY 15 ML BTL NASAL PRN (11:15)
--- NOTE | 2017-05-10 11:33 | HHI.PR ---
Subjective Patient symptoms today Postoperative day #1 Reports pain well controlled with SPRAY MIXER Feels hungry and would like her diet advanced Objective Vital Signs Vital Signs Date Time Temp Pulse Resp B/P (MAP) Pulse Ox O2 Delivery O2 Flow Rate FiO2 05/10/17 10:58 99.4 68 16 183/78 (113) 95 05/10/17 08:01 98.8 67 20 165/86 (112) 96 Arterial Line 05/10/17 08:00 63 05/10/17 07:41 96 Nasal Cannula 3.00 05/10/17 05:36 22 05/10/17 04:20 98.2 64 20 159/62 (94) 95 05/10/17 01:31 94 3.00 05/10/17 00:02 98.2 65 20 130/52 (78) 95 05/09/17 23:05 98.2 72 20 147/65 (92) 95 05/09/17 22:46 97.6 56 16 158/68 (98) 100 Bi-Pap 50 05/09/17 22:30 59 24 141/102 (115) 96 Bi-Pap 50 05/09/17 22:15 56 18 143/61 (88) 99 Bi-Pap 50 05/09/17 22:00 59 22 138/61 (86) 94 Bi-Pap 50 05/09/17 21:45 56 16 151/68 (95) 94 Bi-Pap 50 05/09/17 21:32 16 05/09/17 21:30 52 13 166/70 (102) 96 Bi-Pap 50 178/71 (106) 05/09/17 21:15 54 16 174/69 (104) 98 Bi-Pap 50 175/70 (105) 05/09/17 21:00 53 15 92 Bi-Pap 50 171/66 (101) 05/09/17 20:45 54 13 97 Bi-Pap 50 179/75 (109) 05/09/17 20:30 98 50 05/09/17 20:30 55 17 93 Simple Mask 10 168/69 (102) 05/09/17 20:15 54 13 93 Simple Mask 10 159/78 (105) 05/09/17 20:00 55 16 159/66 (97) 92 Simple Mask 10 141/75 (97) 05/09/17 19:45 65 14 153/68 (96) 96 Simple Mask 10 155/60 (91) 05/09/17 19:30 56 14 161/65 (97) 96 Simple Mask 10 155/60 (91) 05/09/17 19:13 97.5 52 13 152/66 (94) 100 Simple Mask 10 Intake & Output 05/10/17 05/10/17 07:00 19:00 Intake Total 541 ml 850 ml Output Total 275 ml 750 ml Balance 266 ml 100 ml Intake Oral 0 ml IV Total 541 ml 850 ml Output Urine Total 225 ml 750 ml Stool Total 0 ml Emesis 20 ml Drainage Total 30 ml Result Diagram: 05/10/17 1005 05/10/17 1005 Objective Remarks Abdomen soft, nondistended, incision sites clean and dry. Minimal serosanguineous drainage from IVELISSE drain. Extremities well-perfused, nontender Medications and IVs Current Medications Medications (Trade) Dose Ordered Sig/Nadir Route Start Time Stop Time Status Last Admin (Zofran Inj) 4 mg Q6HR PRN IV PUSH 05/08/17 15:45 05/09/17 21:37 (Dilaudid Pf Inj) 1 mg Q4H PRN IV PUSH 05/08/17 15:45 (Dilaudid Pf Inj) 2 mg Q4H PRN IV PUSH 05/08/17 15:45 05/09/17 07:29 Sodium Chloride 1,000 ml @ 125 mls/hr Q8H IV 05/09/17 19:09 05/10/17 03:09 (NS Flush) 2 ml UNSCH PRN IV FLUSH 05/09/17 19:15 (NS Flush) 2 ml BID IV FLUSH 05/09/17 21:00 05/09/17 21:00 Cefazolin Sodium 1000 mg/Sodium Chloride 100 ml @ 200 mls/hr Q8H IV 05/09/17 20:00 05/10/17 12:29 05/10/17 04:00 (Narcan Inj) 0.4 mg UNSCH PRN IV PUSH 05/09/17 19:15 (Narcan Inj) 0.4 mg UNSCH PRN IV PUSH 05/09/17 19:15 (Dilaudid SPRAY MIXER Inj) 6 mg UNSCH IV 05/09/17 19:15 05/09/17 21:32 SPRAY MIXER Dosage Infused (Pha) 1 Q8HR OTHER 05/09/17 22:00 05/10/17 05:36 (Proair Hfa Inh) 2 puff Q4H PRN INH 05/09/17 19:15 (Flovent Hfa 44 Mcg Inh) 2 puff BID INH 05/09/17 21:00 05/10/17 08:52 (Serevent Diskus Inh) 50 mcg BID INH 05/09/17 21:00 05/10/17 08:53 Miscellaneous Information ALL NURSING DEPARTME... UNSCH PRN .XX 05/09/17 19:10 05/10/17 19:09 (Heparin Inj) 5,000 units Q12H SQ 05/10/17 18:00 (D50w (Vial) Inj) 50 ml UNSCH PRN IV PUSH 05/09/17 23:00 (Glucagon Inj) 1 mg UNSCH PRN OTHER 05/09/17 23:00 (NovoLIN R SUPPLEMENTAL SCALE) 1 Q6HR SQ 05/10/17 00:00 (Neosynephrine 1% Guillermo Spr) 2 spray Q4H PRN NASAL 05/10/17 11:15 UNV Assessment and Plan Assessment and Plan Urologic impression: #1 status post robot-assisted laparoscopic right radical nephrectomy #2 hemodynamically stable Plan: #1 advance diet #2 out of bed #3 PT consult to assist with ambulation exercises #4 DC IVELISSE drain ScagliaChinedu MD May 10, 2017 11:33
[2017-05-10] MEDS ORDERED: ACETAMINOPHEN/HYDROcodone 325 MG/7.5 MG TAB PO PRN (11:45)
[2017-05-10] MEDS: METOPROLOL TARTRATE 50 MG TAB PO SCH ×2 (13:00→21:35)
[2017-05-10] MEDS: DOCUSATE SODIUM 100 MG CAP PO SCH ×2 (13:05→18:00)
[2017-05-10] MEDS: predniSONE 5 MG TAB PO SCH (13:06)
[2017-05-10] MEDS: SERTRALINE HCL 100 MG TAB PO SCH (13:07)
[2017-05-10] MEDS: cycloSPORINE 100 MG CAP PO SCH (14:52)
[2017-05-10] MEDS: HEPARIN SODIUM - SQ 10,000 UNITS/ML VIAL SQ SCH (19:41)
[2017-05-10] MEDS: MYCOPHENOLATE MOFETIL 500 MG TAB PO SCH (19:46)
[2017-05-10] MEDS: INSULIN ASPART 1,000 UNITS/10 ML VIAL SQ SCH (21:00)
[2017-05-10] MEDS: FAMOTIDINE 20 MG TAB PO SCH (21:33)
[2017-05-10] MEDS: PRAVASTATIN SOD 40 MG TAB PO SCH (21:35)
[2017-05-10] MEDS: MAGNESIUM OXIDE 400 MG TAB PO SCH (21:35)
[2017-05-10] MEDS: INSULIN HUMAN NPH 1,000 UNITS/10 ML VIAL SQ SCH (21:54)
[2017-05-11] VITALS (19 sets, daily range): BP systolic 125–190; BP diastolic 66–91; PULSE 52–67; RESP 20; TEMP 98.1–99.4; O2SAT 95–100
[2017-05-11] MEDS: LOW DOSE INSULIN NOVOLIN REGULAR SUPPLEMENTAL SCALE SQ SCH ×2 (00:41→05:22)
[2017-05-11] MEDS ORDERED: cloNIDine HCL 0.1 MG TAB PO ONE (02:15)
[2017-05-11] MEDS ORDERED: cloNIDine HCL 0.1 MG TAB PO SCH (02:45)
[2017-05-11] MEDS: MYCOPHENOLATE MOFETIL 500 MG TAB PO SCH ×2 (05:23→16:10)
[2017-05-11] MEDS: HEPARIN SODIUM - SQ 10,000 UNITS/ML VIAL SQ SCH ×2 (05:23→16:10)
[2017-05-11] MEDS: PCA - TOTAL MG DILAUDID DELIVERED PER SHIFT OTHER SCH (06:00)
[2017-05-11] MEDS: METOPROLOL TARTRATE 50 MG TAB PO SCH ×2 (08:43→21:44)
[2017-05-11] MEDS: SODIUM CHLORIDE 0.9% FLUSH 10 ML FLUSH IV FLUSH SCH ×2 (08:43→21:00)
[2017-05-11] MEDS: INSULIN ASPART 1,000 UNITS/10 ML VIAL SQ SCH (08:43)
[2017-05-11] MEDS: INSULIN HUMAN NPH 1,000 UNITS/10 ML VIAL SQ SCH ×2 (08:43→21:00)
[2017-05-11] MEDS: FAMOTIDINE 20 MG TAB PO SCH ×2 (08:48→21:44)
[2017-05-11] MEDS: DOCUSATE SODIUM 100 MG CAP PO SCH ×2 (08:48→16:10)
[2017-05-11] MEDS: cycloSPORINE 100 MG CAP PO SCH (08:48)
[2017-05-11] MEDS: SALMETEROL XINAFOATE 50 MCG DISKUS INH SCH ×2 (08:49→21:00)
[2017-05-11] MEDS: FLUTICASONE PROPIONATE 44 MCG/ACT 10.6 GM INHALER INH SCH ×2 (08:49→21:00)
[2017-05-11] MEDS: SERTRALINE HCL 100 MG TAB PO SCH (08:49)
[2017-05-11] MEDS: POTASSIUM CHLORIDE 20 MEQ CONTROLLED RELEASE TAB PO SCH (08:49)
[2017-05-11] MEDS: predniSONE 5 MG TAB PO SCH (08:49)
[2017-05-11] MEDS: SODIUM CHLOR 0.9% 1000 ML INJ 1,000 ML IV SCH (08:50)
[2017-05-11] MEDS ORDERED: DEXTROSE 50% IN WATER 50 ML VIAL(D50) IV PUSH PRN (09:30)
[2017-05-11] MEDS ORDERED: GLUCAGON 1 MG/ML VIAL OTHER PRN (09:30)
--- NOTE | 2017-05-11 09:33 | PD.CONS ---
[facility] By Dr. Torres Reason for Consult Opinion and recommendation on treatment of patients diabetes mellitus Primary Care Physician Unknown Diagnoses: History of Present Illness 56-year-old white female with a history of previous kidney transplant, insulin- dependent diabetes mellitus, hyponatremia, hypertension, asthma who underwent a right robot-assisted radical nephrectomy secondary to right kidney carcinoma on May 09 who is currently postoperative day 2 seen today with complaint of feeling slightly shaky. Her blood sugar at this time is 82. At home she takes NPH insulin 35 units and NovoLog 35 units twice a day. She states that he she usually eats a large meal at midnight and at noon. She usually eats twice a day. I explained to her about her timing of meals along with calorie meals is extremely different from what she does at home and therefore adjustments in her insulin all need to be done today. She states that her pain is currently controlled at this time. She would like to be discharged home rather than going to rehabilitation. Review of Systems Constitutional: COMPLAINS OF: Diaphoretic episodes, Change in appetite, DENIES : Fatigue, Fever, Chills Endocrine: DENIES: Heat/cold intolerance Eyes: DENIES: Blurred vision, Eye pain, Vision loss Ears, nose, mouth, throat: DENIES: Hearing loss, Nasal discharge, Throat pain, Ear Pain, Sinus Pain Respiratory: DENIES: Cough, Shortness of breath Cardiovascular: DENIES: Chest pain, Palpitations, Dyspnea on Exertion, Lower Extremity Edema Gastrointestinal: COMPLAINS OF: Abdominal pain, DENIES: Black stools, Bloody stools, Constipation, Diarrhea, Nausea, Vomiting Genitourinary: DENIES: Dysuria Musculoskeletal: DENIES: Joint pain, Muscle aches, Stiffness Integumentary: DENIES: Rash Hematologic/lymphatic: DENIES: Bruising, Lymphadenopathy Immunologic/allergic: DENIES: Eczema Neurologic: DENIES: Headache, Localized weakness, Paresthesias Psychiatric: DENIES: Anxiety, Depression, Suicidal Ideation Past Family Social History Allergies: Coded Allergies: NSAIDS (Non-Steroidal Anti-Inflamma (Verified Allergy, Severe, Nausea/ Vomiting, 05/02/17) adhesive (Unverified Allergy, Severe, SILK TAPE, 05/02/17) Past Medical History Asthma Insulin dependent diabetes mellitus Hyperlipidemia Hypertension Sleep apnea GERD Past Surgical History Right kidney transplant Tonsillectomy Cataract surgery Cholecystectomy Reported Medications Albuterol inhaler every 4 hours as needed Aspirin 81 mg by mouth daily Calcium supplement with vitamin D 1 by mouth daily Cyclosporine 125 mg by mouth daily Pepcid 20 mg by mouth twice a day Flovent 2 puffs inhaler twice a day [place] one tablet every 6 hours as needed for pain Humalog 35 units subcutaneous twice a day NPH 35 units subcutaneous twice a day Magnesium 400 mg by mouth daily at bedtime Metoprolol 50 mg by mouth twice a day Multivitamins 1 by mouth daily CellCept 500 mg by mouth twice a day Zofran Phenylephrine one nasal spray as needed Potassium chloride 20 mg by mouth daily Prednisone 5 mg by mouth daily Serevent 50 MCG's inhaler twice a day next on Zoloft milligrams by mouth daily Zocor 20 mg by mouth daily at bedtime Family History Mother also had diabetes Social History Does not smoke cigarettes occasionally his alcohol Physical Exam Vital Signs Vital Signs Date Time Temp Pulse Resp B/P (MAP) Pulse Ox O2 Delivery O2 Flow Rate FiO2 05/11/17 06:00 18 05/11/17 04:45 98.8 57 163/82 (109) 95 05/11/17 03:00 55 05/11/17 00:00 99.1 57 175/87 (116) 100 05/10/17 23:00 57 05/10/17 21:57 18 05/10/17 21:29 97 Nasal Cannula 3.00 05/10/17 20:00 99.0 63 180/80 (113) 99 05/10/17 19:00 61 05/10/17 18:00 62 05/10/17 17:00 62 05/10/17 16:00 99.1 62 18 165/72 (103) 97 05/10/17 16:00 64 05/10/17 15:00 62 05/10/17 14:00 66 05/10/17 14:00 20 05/10/17 13:00 68 05/10/17 12:48 70 05/10/17 12:00 98.9 68 20 168/75 (106) 96 05/10/17 11:00 64 05/10/17 10:58 99.4 68 16 183/78 (113) 95 05/10/17 10:00 66 Physical Exam GENERAL: This is a well-nourished, obese well-developed patient, in no apparent distress. SKIN: No rashes, ecchymoses or lesions. Cool and dry. HEAD: Atraumatic. Normocephalic. No temporal or scalp tenderness. EYES: Pupils equal round and reactive. Extraocular motions intact. No scleral icterus. No injection or drainage. ENT: Nose without bleeding, purulent drainage or septal hematoma. Throat without erythema, tonsillar hypertrophy or exudate. Uvula midline. Airway patent. NECK: Trachea midline. No JVD or lymphadenopathy. Supple, nontender, no meningeal signs. CARDIOVASCULAR: Regular rate and rhythm RESPIRATORY: Clear to auscultation. Breath sounds equal bilaterally. No wheezes , rales, or rhonchi. GASTROINTESTINAL: Abdomen soft, mild tenderness around the right lower abdomen, bandage in place, clean dry intact, nondistended. No hepato-splenomegaly, or palpable masses. No guarding. Normoactive bowel sounds MUSCULOSKELETAL: Extremities without clubbing, cyanosis, trace edema NEUROLOGICAL: Awake and alert to person place time and situation. Cranial nerves II through XII intact. Motor and sensory grossly within normal limits. Five out of 5 muscle strength in all muscle groups. Normal speech. Laboratory Laboratory Tests Test 05/10/17 10:05 Hemoglobin 8.6 Hematocrit 26.5 Blood Urea Nitrogen 66 Creatinine 2.81 Random Glucose 171 Calcium Level 8.0 Sodium Level 141 Potassium Level 4.8 Chloride Level 108 Carbon Dioxide Level 26.5 Anion Gap 7 Estimat Glomerular Filtration Rate 17 Result Diagram: 05/10/17 1005 05/10/17 1005 Assessment and Plan Assessment and Plan 1. History of right kidney carcinoma status post operative day #1 right robot- assisted radical nephrectomy- continue postoperative care, pain control, physical therapy per urology. 2. Insulin-dependent diabetes mellitus - to prevent hypoglycemia I recommended stopping the home NovoLog scheduled dosing until oral intake and meal frequency is assessed. We'll provide sliding scale insulin and continue with home NPH subcutaneous twice a day; further recommendations based on blood sugar trends. 3. History hyperlipidemia resume statin 4. History of asthma continue with bronchodilators. No signs of any acute exacerbation 5. History of sleep apnea -continue with daily at bedtime CPAP. 6. History of right kidney transplant on chronic immunosuppressant- continue with CellCept and prednisone 7. Chronic kidney disease stage IV with a history of kidney transplant, will monitor BUN/creatinine avoid nephrotoxins postoperatively 8. History of hypertension, essential- not optimally controlled, add clonidine as needed and monitor. 7. DVT prophylaxis SCDs and heparin. Nelda Stewart MD May 11, 2017 09:33
[2017-05-11] MEDS ORDERED: oxyCODONE/ACETAMINOPHEN 5 MG/325 MG TAB PO PRN (10:45)
--- NOTE | 2017-05-11 11:28 | HHI.PR ---
Subjective Patient symptoms today Postoperative day #2 Denies specific complaints Pain well managed Objective Vital Signs Vital Signs Date Time Temp Pulse Resp B/P (MAP) Pulse Ox O2 Delivery O2 Flow Rate FiO2 05/11/17 10:00 56 05/11/17 09:00 54 05/11/17 08:00 52 05/11/17 08:00 98.6 57 20 169/74 (105) 99 05/11/17 07:00 53 05/11/17 06:00 18 05/11/17 04:45 98.8 57 163/82 (109) 95 05/11/17 03:00 55 05/11/17 00:00 99.1 57 175/87 (116) 100 05/10/17 23:00 57 05/10/17 21:57 18 05/10/17 21:29 97 Nasal Cannula 3.00 05/10/17 20:00 99.0 63 180/80 (113) 99 05/10/17 19:00 61 05/10/17 18:00 62 05/10/17 17:00 62 05/10/17 16:00 99.1 62 18 165/72 (103) 97 05/10/17 16:00 64 05/10/17 15:00 62 05/10/17 14:00 66 05/10/17 14:00 20 05/10/17 13:00 68 05/10/17 12:48 70 05/10/17 12:00 98.9 68 20 168/75 (106) 96 05/10/17 11:00 64 05/10/17 10:58 99.4 68 16 183/78 (113) 95 Intake & Output 05/11/17 05/11/17 07:00 19:00 Intake Total 2070 ml Output Total 670 ml Balance 1400 ml Intake Oral 240 ml IV Total 1830 ml Output Urine Total 650 ml Drainage Total 20 ml Result Diagram: 05/10/17 1005 05/10/17 1005 Objective Remarks Abdomen soft, nondistended, incision sites intact. Minimal serosanguineous drainage from IVELISSE drain site. Extremities well-perfused, nontender Medications and IVs Current Medications Medications (Trade) Dose Ordered Sig/Nadir Route Start Time Stop Time Status Last Admin (Zofran Inj) 4 mg Q6HR PRN IV PUSH 05/08/17 15:45 05/09/17 21:37 (Dilaudid Pf Inj) 1 mg Q4H PRN IV PUSH 05/08/17 15:45 (Dilaudid Pf Inj) 2 mg Q4H PRN IV PUSH 05/08/17 15:45 05/09/17 07:29 Sodium Chloride 1,000 ml @ 83 mls/hr Q12H3M IV 05/09/17 19:09 05/11/17 08:50 (NS Flush) 2 ml UNSCH PRN IV FLUSH 05/09/17 19:15 (NS Flush) 2 ml BID IV FLUSH 05/09/17 21:00 05/10/17 21:00 (Narcan Inj) 0.4 mg UNSCH PRN IV PUSH 05/09/17 19:15 (Narcan Inj) 0.4 mg UNSCH PRN IV PUSH 05/09/17 19:15 (Dilaudid STRIPPING AND BOOKING MACHINE OPERATOR Inj) 6 mg UNSCH IV 05/09/17 19:15 05/09/17 21:32 STRIPPING AND BOOKING MACHINE OPERATOR Dosage Infused (Pha) 1 Q8HR OTHER 05/09/17 22:00 05/11/17 06:00 (Proair Hfa Inh) 2 puff Q4H PRN INH 05/09/17 19:15 (Flovent Hfa 44 Mcg Inh) 2 puff BID INH 05/09/17 21:00 05/10/17 08:52 (Serevent Diskus Inh) 50 mcg BID INH 05/09/17 21:00 05/11/17 08:49 (Heparin Inj) 5,000 units Q12H SQ 05/10/17 18:00 05/11/17 05:23 (Neosynephrine 1% Guillermo Spr) 2 spray Q4H PRN NASAL 05/10/17 11:15 05/10/17 21:34 (Pepcid) 10 mg BID PO 05/10/17 21:00 05/11/17 08:48 ([place] 7.5-325 Mg) 1 tab Q6H PRN PO 05/10/17 11:45 05/10/17 21:34 (NovoLIN N INJ) 35 units BID SQ 05/10/17 21:00 05/10/17 21:54 (Mag-Ox) 400 mg HS PO 05/10/17 21:00 05/10/17 21:35 (Lopressor) 50 mg BID PO 05/10/17 13:00 05/10/17 21:35 (KCl) 20 meq DAILY PO 05/11/17 09:00 05/11/17 08:49 (Deltasone) 5 mg DAILY PO 05/10/17 11:45 05/11/17 08:49 (Zoloft) 200 mg DAILY PO 05/10/17 11:45 05/11/17 08:49 (Pravachol) 40 mg HS PO 05/10/17 21:00 05/10/17 21:35 (SandIMMUNE) 100 mg DAILY PO 05/10/17 11:45 05/11/17 08:48 (Cellcept) 500 mg BID@06,18 PO 05/10/17 18:00 05/11/17 05:23 (Colace) 100 mg TID PO 05/10/17 13:00 05/11/17 08:48 (Apresoline Inj) 20 mg Q1H PRN IV PUSH 05/11/17 02:15 (D50w (Vial) Inj) 50 ml UNSCH PRN IV PUSH 05/11/17 09:30 (Glucagon Inj) 1 mg UNSCH PRN OTHER 05/11/17 09:30 (NovoLOG SUPPLEMENTAL SCALE) 1 ACHS SLIDING SCALE SQ 05/11/17 12:00 (Catapres) 0.1 mg Q6H PRN PO 05/11/17 09:45 Assessment and Plan Assessment and Plan Urologic impression: #1 status post robot-assisted laparoscopic right radical nephrectomy #2 hemodynamically stable #3 slow steady progress #4 appreciate assistance from medical service for blood pressure management and diabetes control Plan: #1 DC STRIPPING AND BOOKING MACHINE OPERATOR #2 encourage out of bed #3 DC Grant #4 DC I V fluids #5 occupational therapy evaluation for inpatient rehabilitation Chinedu Torres MD May 11, 2017 10:50
[2017-05-11] MEDS: INSULIN ASPART SUPPLEMENTAL SCALE SQ SCH ×3 (12:50→21:58)
[2017-05-11] MEDS: MAGNESIUM OXIDE 400 MG TAB PO SCH (21:43)
[2017-05-11] MEDS: PRAVASTATIN SOD 40 MG TAB PO SCH (21:44)
[2017-05-11] MEDS: oxyCODONE/ACETAMINOPHEN 5 MG/325 MG TAB PO PRN (21:50)
[2017-05-11] MEDS: hydrALAZINE HCL 20 MG/ML VIAL IV PUSH PRN (23:55)
[2017-05-12] VITALS (19 sets, daily range): BP systolic 120–199; BP diastolic 47–98; PULSE 61–87; TEMP 98.4–99.7; O2SAT 94–99
[2017-05-12] MEDS: HEPARIN SODIUM - SQ 10,000 UNITS/ML VIAL SQ SCH ×2 (06:00→18:20)
[2017-05-12] MEDS: MYCOPHENOLATE MOFETIL 500 MG TAB PO SCH ×2 (06:00→18:17)
[2017-05-12] MEDS: oxyCODONE/ACETAMINOPHEN 5 MG/325 MG TAB PO PRN (06:07)
[2017-05-12 07:03] LABS: POTASSIUM 4.2 MEQ/L (3.5-5.1)
[2017-05-12] MEDS: INSULIN ASPART SUPPLEMENTAL SCALE SQ SCH ×4 (08:00→20:13)
[2017-05-12] MEDS: SERTRALINE HCL 100 MG TAB PO SCH (08:31)
[2017-05-12] MEDS: POTASSIUM CHLORIDE 20 MEQ CONTROLLED RELEASE TAB PO SCH (08:31)
[2017-05-12] MEDS: cycloSPORINE 100 MG CAP PO SCH (08:31)
[2017-05-12] MEDS: predniSONE 5 MG TAB PO SCH (08:32)
[2017-05-12] MEDS: FAMOTIDINE 20 MG TAB PO SCH ×2 (08:32→20:01)
[2017-05-12] MEDS: DOCUSATE SODIUM 100 MG CAP PO SCH ×3 (08:32→18:17)
[2017-05-12] MEDS: SODIUM CHLORIDE 0.9% FLUSH 10 ML FLUSH IV FLUSH SCH ×2 (08:36→20:01)
[2017-05-12] MEDS: METOPROLOL TARTRATE 50 MG TAB PO SCH ×2 (08:36→20:01)
[2017-05-12] MEDS: SALMETEROL XINAFOATE 50 MCG DISKUS INH SCH ×2 (08:37→20:02)
[2017-05-12] MEDS: FLUTICASONE PROPIONATE 44 MCG/ACT 10.6 GM INHALER INH SCH ×2 (08:37→20:01)
[2017-05-12] MEDS: INSULIN HUMAN NPH 1,000 UNITS/10 ML VIAL SQ SCH ×2 (09:00→20:13)
--- NOTE | 2017-05-12 11:48 | HHI.PR ---
Subjective Patient symptoms today Postoperative day #3 Appears very sleepy today She is responsive to questioning Objective Vital Signs Vital Signs Date Time Temp Pulse Resp B/P (MAP) Pulse Ox O2 Delivery O2 Flow Rate FiO2 05/12/17 10:00 62 05/12/17 09:00 67 05/12/17 08:00 98.9 65 199/98 (131) 97 05/12/17 08:00 64 05/12/17 04:19 99.6 61 156/68 (97) 99 05/12/17 03:00 61 05/12/17 01:00 120/47 (71) 05/12/17 00:58 99.7 62 175/76 (109) 97 05/11/17 23:00 61 05/11/17 20:00 99.4 67 190/91 (124) 98 05/11/17 19:00 61 05/11/17 18:00 62 05/11/17 17:00 62 05/11/17 16:00 60 05/11/17 15:00 60 05/11/17 15:00 98.1 65 20 125/66 (85) 97 05/11/17 14:06 62 05/11/17 13:05 61 05/11/17 12:00 61 Intake & Output 05/12/17 05/12/17 07:00 19:00 Intake Total 480 ml Output Total 1000 ml Balance -520 ml Intake Oral 480 ml Output Urine Total 1000 ml Result Diagram: 05/10/17 1005 05/12/17 0556 Other Results Pathology report demonstrated renal cell carcinoma with negative surgical margins. Objective Remarks Abdomen soft, nondistended, incision sites intact. Minimal serosanguineous drainage from IVELISSE drain site. Extremities well-perfused, nontender Medications and IVs Current Medications Medications (Trade) Dose Ordered Sig/Nadir Route Start Time Stop Time Status Last Admin (Zofran Inj) 4 mg Q6HR PRN IV PUSH 05/08/17 15:45 05/09/17 21:37 (NS Flush) 2 ml UNSCH PRN IV FLUSH 05/09/17 19:15 (NS Flush) 2 ml BID IV FLUSH 05/09/17 21:00 05/12/17 08:36 (Narcan Inj) 0.4 mg UNSCH PRN IV PUSH 05/09/17 19:15 (Proair Hfa Inh) 2 puff Q4H PRN INH 05/09/17 19:15 (Flovent Hfa 44 Mcg Inh) 2 puff BID INH 05/09/17 21:00 05/12/17 08:37 (Serevent Diskus Inh) 50 mcg BID INH 05/09/17 21:00 05/12/17 08:37 (Heparin Inj) 5,000 units Q12H SQ 05/10/17 18:00 05/12/17 06:00 (Neosynephrine 1% Guillermo Spr) 2 spray Q4H PRN NASAL 05/10/17 11:15 05/10/17 21:34 (Pepcid) 10 mg BID PO 05/10/17 21:00 05/12/17 08:32 ([place] 7.5-325 Mg) 1 tab Q6H PRN PO 05/10/17 11:45 05/10/17 21:34 (NovoLIN N INJ) 35 units BID SQ 05/10/17 21:00 05/10/17 21:54 (Mag-Ox) 400 mg HS PO 05/10/17 21:00 05/11/17 21:43 (Lopressor) 50 mg BID PO 05/10/17 13:00 05/12/17 08:36 (KCl) 20 meq DAILY PO 05/11/17 09:00 05/12/17 08:31 (Deltasone) 5 mg DAILY PO 05/10/17 11:45 05/12/17 08:32 (Zoloft) 200 mg DAILY PO 05/10/17 11:45 05/12/17 08:31 (Pravachol) 40 mg HS PO 05/10/17 21:00 05/11/17 21:44 (SandIMMUNE) 100 mg DAILY PO 05/10/17 11:45 05/12/17 08:31 (Cellcept) 500 mg BID@06,18 PO 05/10/17 18:00 05/12/17 06:00 (Colace) 100 mg TID PO 05/10/17 13:00 05/12/17 08:32 (Apresoline Inj) 20 mg Q1H PRN IV PUSH 05/11/17 02:15 05/11/17 23:55 (D50w (Vial) Inj) 50 ml UNSCH PRN IV PUSH 05/11/17 09:30 (Glucagon Inj) 1 mg UNSCH PRN OTHER 05/11/17 09:30 (NovoLOG SUPPLEMENTAL SCALE) 1 ACHS SLIDING SCALE SQ 05/11/17 12:00 05/11/17 21:58 (Catapres) 0.1 mg Q6H PRN PO 05/11/17 09:45 (Percocet 5-325 Mg) 1 tab Q4H PRN PO 05/11/17 10:45 (Percocet 5-325 Mg) 2 tab Q4H PRN PO 05/11/17 10:45 05/12/17 06:07 Assessment and Plan Assessment and Plan Urologic impression: #1 status post robot-assisted laparoscopic right radical nephrectomy #2 hemodynamically stable #3 slow steady progress #4 appreciate assistance from medical service for blood pressure management and diabetes control Plan: #1 change pain medication to tramadol #2 PT to continue with ambulation exercises #3 OT evaluation appreciated #4 case management consult is regarding inpatient rehabilitation Chinedu Torres MD May 12, 2017 11:48
[2017-05-12] MEDS: hydrALAZINE HCL 20 MG/ML VIAL IV PUSH PRN ×2 (12:38→18:17)
--- NOTE | 2017-05-12 13:49 | HHI.PR ---
Subjective Remarks Pain overall control appears still wants to go home and not go to rehabilitation. Objective Vitals Vital Signs Date Time Temp Pulse Resp B/P (MAP) Pulse Ox O2 Delivery O2 Flow Rate FiO2 05/12/17 10:00 62 05/12/17 09:00 67 05/12/17 08:00 98.9 65 199/98 (131) 97 05/12/17 08:00 64 05/12/17 04:19 99.6 61 156/68 (97) 99 05/12/17 03:00 61 05/12/17 01:00 120/47 (71) 05/12/17 00:58 99.7 62 175/76 (109) 97 05/11/17 23:00 61 05/11/17 20:00 99.4 67 190/91 (124) 98 05/11/17 19:00 61 05/11/17 18:00 62 05/11/17 17:00 62 05/11/17 16:00 60 05/11/17 15:00 60 05/11/17 15:00 98.1 65 20 125/66 (85) 97 05/11/17 14:06 62 I/O 05/11/17 05/11/17 05/11/17 05/12/17 05/12/17 05/12/17 07:00 15:00 23:00 07:00 15:00 23:00 Intake Total 1070 ml 1190 ml 480 ml Output Total 670 ml 925 ml 1000 ml Balance 400 ml 265 ml -520 ml Intake Oral 240 ml 360 ml 480 ml IV Total 830 ml 830 ml Output Urine Total 650 ml 925 ml 1000 ml Drainage Total 20 ml # Bowel Movements 0 Result Diagram: 05/10/17 1005 05/12/17 0556 Other Results Item Value Date Time Bedside Blood Glucose 95 mg/dl 05/11/17 1730 Bedside Blood Glucose 163 mg/dl 05/11/17 2158 Bedside Blood Glucose 226 mg/dl 05/12/17 1200 Objective Remarks GENERAL: This is a well-nourished, obese, well-developed patient, in no apparent distress. CARDIOVASCULAR: Regular rate and rhythm RESPIRATORY: Clear to auscultation. Breath sounds equal bilaterally. No wheezes , rales, or rhonchi. GASTROINTESTINAL: Abdomen soft, non-tender, nondistended. Normal active bowel sounds, bandage clean dry intact MUSCULOSKELETAL: Extremities without clubbing, cyanosis, 2+ edema NEURO: Alert & Oriented x4 to person, place, time, situation. Moves all ext x4 A/P Assessment and Plan 1. History of right kidney carcinoma status post operative day #2 right robot- assisted radical nephrectomy- continue postoperative care, pain control, physical therapy per urology, Dr. Florentin Gregory. 2. Insulin-dependent diabetes mellitus - to prevent hypoglycemia I recommended stopping the home NovoLog scheduled dosing until oral intake and meal frequency is assessed. We'll provide sliding scale insulin and continue with home NPH subcutaneous twice a day, decrease dosing to 25 units subcutaneous twice a day. Blood sugar is trending up; further recommendations based on blood sugar trends. 3. History hyperlipidemia resume statin 4. History of asthma continue with bronchodilators. No signs of any acute exacerbation 5. History of sleep apnea -continue with daily at bedtime CPAP. 6. History of right kidney transplant on chronic immunosuppressant- continue with CellCept and prednisone 7. Chronic kidney disease stage IV with a history of kidney transplant, will monitor BUN/creatinine avoid nephrotoxins postoperatively 8. History of hypertension, essential- not optimally controlled, add clonidine as needed and monitor. Add Norvasc. 7. DVT prophylaxis SCDs and heparin. Discharge Planning Patient declines rehabilitation or SNF, will need home health care upon discharge Nelda Stewart MD May 12, 2017 13:49
[2017-05-12] MEDS: amLODIPine BESYLATE 5 MG TAB PO SCH (14:00)
[2017-05-12] MEDS: PRAVASTATIN SOD 40 MG TAB PO SCH (20:01)
[2017-05-12] MEDS: MAGNESIUM OXIDE 400 MG TAB PO SCH (20:01)
[2017-05-12] MEDS: traMADol HCL 50 MG TAB PO PRN (22:31)
[2017-05-13] VITALS (15 sets, daily range): BP systolic 158–192; BP diastolic 0–90; PULSE 61–78; RESP 18–20; TEMP 97.9–99.2; O2SAT 95–98
[2017-05-13] MEDS: cloNIDine HCL 0.1 MG TAB PO PRN (01:18)
[2017-05-13] MEDS: hydrALAZINE HCL 20 MG/ML VIAL IV PUSH PRN (03:53)
[2017-05-13] MEDS: MYCOPHENOLATE MOFETIL 500 MG TAB PO SCH ×2 (05:08→17:06)
[2017-05-13] MEDS: HEPARIN SODIUM - SQ 10,000 UNITS/ML VIAL SQ SCH ×2 (05:08→17:06)
[2017-05-13] MEDS: INSULIN ASPART SUPPLEMENTAL SCALE SQ SCH ×4 (08:00→21:00)
[2017-05-13] MEDS: FLUTICASONE PROPIONATE 44 MCG/ACT 10.6 GM INHALER INH SCH ×2 (09:00→21:00)
[2017-05-13] MEDS: INSULIN HUMAN NPH 1,000 UNITS/10 ML VIAL SQ SCH ×2 (09:00→21:35)
[2017-05-13] MEDS: SALMETEROL XINAFOATE 50 MCG DISKUS INH SCH ×2 (09:00→21:00)
[2017-05-13] MEDS: SODIUM CHLORIDE 0.9% FLUSH 10 ML FLUSH IV FLUSH SCH ×2 (09:25→21:26)
[2017-05-13] MEDS: predniSONE 5 MG TAB PO SCH (09:25)
[2017-05-13] MEDS: cycloSPORINE 100 MG CAP PO SCH (09:25)
[2017-05-13] MEDS: DOCUSATE SODIUM 100 MG CAP PO SCH ×3 (09:25→17:06)
[2017-05-13] MEDS: traMADol HCL 50 MG TAB PO PRN ×3 (09:25→23:10)
[2017-05-13] MEDS: SERTRALINE HCL 100 MG TAB PO SCH (09:25)
[2017-05-13] MEDS: METOPROLOL TARTRATE 50 MG TAB PO SCH ×2 (09:25→21:25)
[2017-05-13] MEDS: POTASSIUM CHLORIDE 20 MEQ CONTROLLED RELEASE TAB PO SCH (09:25)
[2017-05-13] MEDS: amLODIPine BESYLATE 5 MG TAB PO SCH (09:25)
[2017-05-13] MEDS: FAMOTIDINE 20 MG TAB PO SCH ×2 (09:26→21:25)
--- NOTE | 2017-05-13 13:08 | HHI.PR ---
Subjective Patient symptoms today Postoperative day #4 Feeling better today Pain well-managed Voiding well Objective Vital Signs Vital Signs Date Time Temp Pulse Resp B/P (MAP) Pulse Ox O2 Delivery O2 Flow Rate FiO2 05/13/17 12:14 98.2 64 18 163/76 (105) 95 05/13/17 12:14 69 05/13/17 11:12 18 05/13/17 10:00 78 05/13/17 09:00 69 05/13/17 08:53 63 05/13/17 08:53 98.6 64 18 169/73 (105) 98 05/13/17 03:00 97.9 61 170/74 (106) 98 05/13/17 03:00 77 05/12/17 23:00 62 05/12/17 23:00 98.9 62 198/89 (125) 96 05/12/17 21:00 98.7 67 173/80 (111) 99 05/12/17 19:00 66 05/12/17 18:00 62 05/12/17 17:00 62 05/12/17 16:00 62 05/12/17 16:00 98.4 62 166/75 (105) 97 05/12/17 15:00 66 05/12/17 14:00 62 Intake & Output 05/13/17 05/13/17 06:59 18:59 Intake Total 480 ml Output Total 100 ml Balance 380 ml Intake Oral 480 ml Output Urine Total 100 ml # Voids 2 Result Diagram: 05/10/17 1005 05/12/17 0556 Objective Remarks Alert and oriented 3 Abdomen soft, nondistended, nontender Wound sites clean and dry Extremities well-perfused, nontender Medications and IVs Current Medications Medications (Trade) Dose Ordered Sig/Nadir Route Start Time Stop Time Status Last Admin (Zofran Inj) 4 mg Q6HR PRN IV PUSH 05/08/17 15:45 05/09/17 21:37 (NS Flush) 2 ml UNSCH PRN IV FLUSH 05/09/17 19:15 (NS Flush) 2 ml BID IV FLUSH 05/09/17 21:00 05/13/17 09:25 (Narcan Inj) 0.4 mg UNSCH PRN IV PUSH 05/09/17 19:15 (Proair Hfa Inh) 2 puff Q4H PRN INH 05/09/17 19:15 (Flovent Hfa 44 Mcg Inh) 2 puff BID INH 05/09/17 21:00 05/12/17 20:01 (Serevent Diskus Inh) 50 mcg BID INH 05/09/17 21:00 05/12/17 20:02 (Heparin Inj) 5,000 units Q12H SQ 05/10/17 18:00 05/13/17 05:08 (Neosynephrine 1% Guillermo Spr) 2 spray Q4H PRN NASAL 05/10/17 11:15 05/10/17 21:34 (Pepcid) 10 mg BID PO 05/10/17 21:00 05/13/17 09:26 (Mag-Ox) 400 mg HS PO 05/10/17 21:00 05/12/17 20:01 (Lopressor) 50 mg BID PO 05/10/17 13:00 05/13/17 09:25 (KCl) 20 meq DAILY PO 05/11/17 09:00 05/13/17 09:25 (Deltasone) 5 mg DAILY PO 05/10/17 11:45 05/13/17 09:25 (Zoloft) 200 mg DAILY PO 05/10/17 11:45 05/13/17 09:25 (Pravachol) 40 mg HS PO 05/10/17 21:00 05/12/17 20:01 (SandIMMUNE) 100 mg DAILY PO 05/10/17 11:45 05/13/17 09:25 (Cellcept) 500 mg BID@06,18 PO 05/10/17 18:00 05/13/17 05:08 (Colace) 100 mg TID PO 05/10/17 13:00 05/13/17 12:11 (Apresoline Inj) 20 mg Q1H PRN IV PUSH 05/11/17 02:15 05/13/17 03:53 (D50w (Vial) Inj) 50 ml UNSCH PRN IV PUSH 05/11/17 09:30 (Glucagon Inj) 1 mg UNSCH PRN OTHER 05/11/17 09:30 (NovoLOG SUPPLEMENTAL SCALE) 1 ACHS SLIDING SCALE SQ 05/11/17 12:00 05/13/17 12:11 (Catapres) 0.1 mg Q6H PRN PO 05/11/17 09:45 05/13/17 01:18 (Ultram) 50 mg Q6H PRN PO 05/12/17 12:00 05/13/17 09:25 (NovoLIN N INJ) 25 units BID SQ 05/12/17 21:00 05/13/17 09:00 (Norvasc) 5 mg DAILY PO 05/12/17 14:00 05/13/17 09:25 Assessment and Plan Assessment and Plan Urologic impression: #1 status post robot-assisted laparoscopic right radical nephrectomy #2 hemodynamically stable #3 slow steady progress #4 appreciate assistance from medical service for blood pressure management and diabetes control Plan: #1 continue with tramadol prn #2 PT to continue with ambulation exercises #3 OT evaluation appreciated #4 discharge home tomorrow morning (does not want inpatient rehabilitation} Chinedu Torres MD May 13, 2017 13:08
[2017-05-13] MEDS ORDERED: DOCU1CAP39 PO (13:16)
[2017-05-13] MEDS ORDERED: ULTR50TA5 PO (13:16)
--- NOTE | 2017-05-13 13:22 | HHI.DS ---
Discharge Summary Admission Date May 09, 2017 at 18:58 Discharge Date: May 15, 2017 Admitting Diagnosis Right sided renal cell carcinoma (1) Renal cell carcinoma Diagnosis: Principal ICD Codes: C64.9 - Malignant neoplasm of unspecified kidney, except renal pelvis Status: Acute Procedures Robot-assisted laparoscopic right radical nephrectomy Brief History 56-year-old female with history chronic kidney disease status post a renal transplantation. Patient was recently diagnosed with a mass lesion involving the upper aspect of the [place] right kidney biopsy-proven to be renal cell carcinoma. Patient was admitted for further management with a robot-assisted laparoscopic right radical nephrectomy. Please refer to the admission history and physical for additional history and pertinent physical findings. CBC/BMP: 05/10/17 1005 05/12/17 0556 Significant Findings Laboratory Tests Test 05/12/17 05:56 Blood Urea Nitrogen 58 MG/DL (7-18) Creatinine 2.24 MG/DL (0.50-1.00) Random Glucose 115 MG/DL (74-106) Calcium Level 8.3 MG/DL (8.5-10.1) Chloride Level 109 MEQ/L (98-107) Estimat Glomerular Filtration Rate 23 ML/MIN (>89) PE at Discharge Abdomen soft, nondistended, nontender Wound sites clean and dry Extremities well-perfused, nontender Hospital Course Patient was admitted on May 08 of this year and underwent transfusion of 2 units packed red blood cells in preparation of her upcoming surgery. She underwent a robot-assisted laparoscopic right radical nephrectomy on May 09 performed without complications and minimal blood loss. Postoperatively the patient had a slow steady course and by postoperative day #4 was significantly improved and a decision made to discharge the patient home. The patient was reluctant to go home and requested 1 more day in the hospital. Patient was seen by the medicine service hospitalized and they assisted with management of the patient's hypertension and diabetes mellitus. Patient's blood pressure remained elevated and patient was cleared for discharge home on postop day #5 with advisement to follow up with her primary care regarding ongoing blood pressure control. When I saw the patient on postop day 5 she felt that she was unable to go home. She said she had a terrible night and her head was throbbing and she felt nauseous. I discussed inpatient rehabilitation and the patient was now agreeable. Patient was transferred to inpatient rehabilitation on May 15 of this year. Pt Condition on Discharge: Good Discharge Disposition: Discharge Home Discharge Instructions DIET: Follow Instructions for: Diabetic Diet Activities you can perform: Shower Only-No Bath Activities to avoid: Strenuous Activity Chinedu Torres MD May 13, 2017 13:22
--- NOTE | 2017-05-13 14:29 | HHI.PR ---
Subjective Remarks Resting comfortably in bed No event overnight Denied chest and or short of breath No fever or chills Objective Vitals Vital Signs Date Time Temp Pulse Resp B/P (MAP) Pulse Ox O2 Delivery O2 Flow Rate FiO2 05/13/17 12:14 98.2 64 18 163/76 (105) 95 05/13/17 12:14 69 05/13/17 11:12 18 05/13/17 10:00 78 05/13/17 09:00 69 05/13/17 08:53 63 05/13/17 08:53 98.6 64 18 169/73 (105) 98 05/13/17 03:00 97.9 61 170/74 (106) 98 05/13/17 03:00 77 05/12/17 23:00 62 05/12/17 23:00 98.9 62 198/89 (125) 96 05/12/17 21:00 98.7 67 173/80 (111) 99 05/12/17 19:00 66 05/12/17 18:00 62 05/12/17 17:00 62 05/12/17 16:00 62 05/12/17 16:00 98.4 62 166/75 (105) 97 05/12/17 15:00 66 I/O 05/12/17 05/12/17 05/12/17 05/13/17 05/13/17 05/13/17 07:00 15:00 23:00 07:00 15:00 23:00 Intake Total 480 ml 720 ml 480 ml Output Total 1000 ml 250 ml 100 ml Balance -520 ml 470 ml 380 ml Intake Oral 480 ml 720 ml 480 ml Output Urine Total 1000 ml 250 ml 100 ml # Voids 2 Result Diagram: 05/10/17 1005 05/12/17 0556 Objective Remarks GENERAL: This is a well-nourished, well-developed patient, in no apparent distress. SKIN: No rashes, warm and dry HEAD: Atraumatic. Normocephalic. EYES: Pupils equal round and reactive. Extraocular motions intact. No scleral icterus. ENT: Nose without bleeding, or drainage, Airway patent. NECK: Trachea midline. Supple CARDIOVASCULAR: Regular rate and rhythm without murmurs, gallops, or rubs. RESPIRATORY: Fair air entry bilaterally. No wheezes, rales, or rhonchi. GASTROINTESTINAL: Abdomen soft, non-tender, nondistended. Positive bowel sounds MUSCULOSKELETAL: Extremities without clubbing, cyanosis, or edema. Pedal pulses appreciated NEUROLOGICAL: Awake and alert. Moves all extremity. Normal speech.no focal neurological deficit A/P Problem List: (1) Renal cell carcinoma ICD Code: C64.9 - Malignant neoplasm of unspecified kidney, except renal pelvis Status: Acute Assessment and Plan 1. History of right kidney carcinoma status post operative day #3 right robot- assisted radical nephrectomy- continue postoperative care, pain control, physical therapy per urology, Dr. Sanchez 2. Insulin-dependent diabetes mellitus - to prevent hypoglycemia I recommended stopping the home NovoLog scheduled dosing until oral intake and meal frequency is assessed. Continue sliding scale insulin and continue with home NPH subcutaneous twice a day, decrease dosing to 25 units subcutaneous twice a day. Blood sugar is trending up; further recommendations based on blood sugar trends. 3. History hyperlipidemia resume statin 4. History of asthma continue with bronchodilators. No signs of any acute exacerbation 5. History of sleep apnea -continue with daily at bedtime CPAP. 6. History of right kidney transplant on chronic immunosuppressant- continue with CellCept and prednisone 7. Chronic kidney disease stage IV with a history of kidney transplant, will monitor BUN/creatinine avoid nephrotoxins postoperatively 8. History of hypertension, essential- not optimally controlled, add clonidine as needed and monitor. Add Norvasc. 7. DVT prophylaxis SCDs and heparin. 05/13: Continue current care blood pressure improved, creatinine 2.24, BMP in a.m. Discharge Planning Patient declines rehabilitation or SNF, will need home health care upon discharge Chris Nation MD May 13, 2017 14:29
[2017-05-13] MEDS: MAGNESIUM OXIDE 400 MG TAB PO SCH (21:25)
[2017-05-13] MEDS: PRAVASTATIN SOD 40 MG TAB PO SCH (21:25)
[2017-05-13] MEDS: ONDANSETRON HCL 4 MG/2 ML VIAL IV PUSH PRN (23:09)
[2017-05-14] VITALS (21 sets, daily range): BP systolic 136–193; BP diastolic 66–95; PULSE 58–81; RESP 16–18; TEMP 98.3–99.1; O2SAT 93–98
[2017-05-14] MEDS: hydrALAZINE HCL 20 MG/ML VIAL IV PUSH PRN (03:53)
[2017-05-14] MEDS: MYCOPHENOLATE MOFETIL 500 MG TAB PO SCH ×2 (06:33→17:22)
[2017-05-14] MEDS: HEPARIN SODIUM - SQ 10,000 UNITS/ML VIAL SQ SCH ×2 (06:34→17:22)
[2017-05-14] MEDS: amLODIPine BESYLATE 5 MG TAB PO SCH (07:53)
[2017-05-14] MEDS: METOPROLOL TARTRATE 50 MG TAB PO SCH ×2 (07:54→20:40)
[2017-05-14] MEDS: DOCUSATE SODIUM 100 MG CAP PO SCH ×3 (07:54→17:22)
[2017-05-14] MEDS: SERTRALINE HCL 100 MG TAB PO SCH (07:54)
[2017-05-14] MEDS: traMADol HCL 50 MG TAB PO PRN ×2 (07:54→20:41)
[2017-05-14] MEDS: cycloSPORINE 100 MG CAP PO SCH (07:54)
[2017-05-14] MEDS: POTASSIUM CHLORIDE 20 MEQ CONTROLLED RELEASE TAB PO SCH (07:54)
[2017-05-14] MEDS: FAMOTIDINE 20 MG TAB PO SCH ×2 (07:54→20:40)
[2017-05-14] MEDS: predniSONE 5 MG TAB PO SCH (07:54)
[2017-05-14] MEDS: ONDANSETRON HCL 4 MG/2 ML VIAL IV PUSH PRN ×2 (07:57→17:23)
[2017-05-14] MEDS: INSULIN ASPART SUPPLEMENTAL SCALE SQ SCH ×4 (07:58→21:00)
[2017-05-14] MEDS: FLUTICASONE PROPIONATE 44 MCG/ACT 10.6 GM INHALER INH SCH ×2 (07:58→20:47)
[2017-05-14] MEDS: SALMETEROL XINAFOATE 50 MCG DISKUS INH SCH ×2 (07:59→20:47)
[2017-05-14] MEDS: INSULIN HUMAN NPH 1,000 UNITS/10 ML VIAL SQ SCH ×2 (07:59→20:41)
[2017-05-14] MEDS: SODIUM CHLORIDE 0.9% FLUSH 10 ML FLUSH IV FLUSH SCH ×2 (07:59→20:48)
[2017-05-14] MEDS ORDERED: AMLO5 PO (09:45)
--- NOTE | 2017-05-14 11:02 | HHI.PR ---
Subjective Remarks "I'm not feeling well, pain all over my body, I don't think I want to go today " Patient sitting on the chair in no acute distress Blood pressure still uncontrolled high double the her Norvasc Objective Vitals Vital Signs Date Time Temp Pulse Resp B/P (MAP) Pulse Ox O2 Delivery O2 Flow Rate FiO2 05/14/17 10:38 58 05/14/17 09:17 18 05/14/17 09:00 59 05/14/17 08:00 98.4 67 18 174/79 (110) 97 05/14/17 08:00 65 05/14/17 06:06 62 05/14/17 05:14 62 05/14/17 04:03 65 05/14/17 03:20 98.8 61 16 175/86 (115) 97 05/14/17 03:20 62 05/14/17 02:00 63 05/14/17 01:00 58 05/14/17 00:17 62 05/13/17 23:20 98.7 63 18 158/80 (106) 98 05/13/17 23:15 64 05/13/17 22:00 66 05/13/17 21:00 62 05/13/17 20:15 63 05/13/17 19:47 64 05/13/17 19:47 99.2 65 20 176/86 (116) 97 192/90 (124) 05/13/17 18:46 66 05/13/17 17:13 63 05/13/17 16:00 63 05/13/17 15:14 63 05/13/17 15:14 98.0 62 18 171/75 (107) 95 05/13/17 12:14 98.2 64 18 163/76 (105) 95 05/13/17 12:14 69 I/O 05/13/17 05/13/17 05/13/17 05/14/17 05/14/17 05/14/17 07:00 15:00 23:00 07:00 15:00 23:00 Intake Total 480 ml 960 ml 580 ml Output Total 100 ml 800 ml Balance 380 ml 160 ml 580 ml Intake Oral 480 ml 960 ml 580 ml IV Total 0 ml Output Urine Total 100 ml 800 ml # Voids 2 1 # Bowel Movements 1 1 Result Diagram: 05/10/17 1005 05/12/17 0556 Objective Remarks GENERAL: This is a well-nourished, well-developed patient, in no apparent distress. SKIN: No rashes, warm and dry HEAD: Atraumatic. Normocephalic. EYES: Pupils equal round and reactive. Extraocular motions intact. No scleral icterus. ENT: Nose without bleeding, or drainage, Airway patent. NECK: Trachea midline. Supple CARDIOVASCULAR: Regular rate and rhythm without murmurs, gallops, or rubs. RESPIRATORY: Fair air entry bilaterally. No wheezes, rales, or rhonchi. GASTROINTESTINAL: Abdomen soft, non-tender, nondistended. Positive bowel sounds MUSCULOSKELETAL: Extremities without clubbing, cyanosis, or edema. Pedal pulses appreciated NEUROLOGICAL: Awake and alert. Moves all extremity. Normal speech.no focal neurological deficit A/P Problem List: (1) Renal cell carcinoma ICD Code: C64.9 - Malignant neoplasm of unspecified kidney, except renal pelvis Status: Acute Assessment and Plan 1. History of right kidney carcinoma status post operative day #3 right robot- assisted radical nephrectomy- continue postoperative care, pain control, physical therapy per urology, Dr. Sanchez 2. Insulin-dependent diabetes mellitus - to prevent hypoglycemia I recommended stopping the home NovoLog scheduled dosing until oral intake and meal frequency is assessed. Continue sliding scale insulin and continue with home NPH subcutaneous twice a day, decrease dosing to 25 units subcutaneous twice a day. Blood sugar is trending up; further recommendations based on blood sugar trends. 3. History hyperlipidemia resume statin 4. History of asthma continue with bronchodilators. No signs of any acute exacerbation 5. History of sleep apnea -continue with daily at bedtime CPAP. 6. History of right kidney transplant on chronic immunosuppressant- continue with CellCept and prednisone 7. Chronic kidney disease stage IV with a history of kidney transplant, will monitor BUN/creatinine avoid nephrotoxins postoperatively 8. History of hypertension, essential- not optimally controlled, add clonidine as needed and monitor. Add Norvasc. 7. DVT prophylaxis SCDs and heparin. 05/13: Continue current care blood pressure improved, creatinine 2.24, BMP in a.m. 05/14: Blood pressure still not controlled, increase Norvasc to 10 mg, medically stable for discharge need to follow up with PCP within one 1-2 weeks Chris Nation MD May 14, 2017 11:02
--- NOTE | 2017-05-14 13:27 | HHI.PR ---
Subjective Patient symptoms today Postoperative day #5 Patient reports that she had a terrible night and that her head was pounding and she felt nauseous. She reports that she feels she is not ready to go home at this time. She has been tolerating oral intake and ambulating. She is voiding without difficulty. Objective Vital Signs Vital Signs Date Time Temp Pulse Resp B/P (MAP) Pulse Ox O2 Delivery O2 Flow Rate FiO2 05/14/17 11:00 98.6 62 18 177/81 (113) 96 05/14/17 11:00 61 05/14/17 10:38 58 05/14/17 09:17 18 05/14/17 09:00 59 05/14/17 08:00 98.4 67 18 174/79 (110) 97 05/14/17 08:00 65 05/14/17 06:06 62 05/14/17 05:14 62 05/14/17 04:03 65 05/14/17 03:20 98.8 61 16 175/86 (115) 97 05/14/17 03:20 62 05/14/17 02:00 63 05/14/17 01:00 58 05/14/17 00:17 62 05/13/17 23:20 98.7 63 18 158/80 (106) 98 05/13/17 23:15 64 05/13/17 22:00 66 05/13/17 21:00 62 05/13/17 20:15 63 05/13/17 19:47 64 05/13/17 19:47 99.2 65 20 176/86 (116) 97 192/90 (124) 05/13/17 18:46 66 05/13/17 17:13 63 05/13/17 16:00 63 05/13/17 15:14 63 05/13/17 15:14 98.0 62 18 171/75 (107) 95 Intake & Output 05/14/17 05/14/17 07:00 19:00 Intake Total 580 ml Balance 580 ml Intake Oral 580 ml # Voids 1 # Bowel Movements 1 Result Diagram: 05/10/17 1005 05/12/17 0556 Objective Remarks Alert and oriented 3 Abdomen soft, nondistended, nontender Wound sites clean and dry Extremities well-perfused, nontender Medications and IVs Current Medications Medications (Trade) Dose Ordered Sig/Nadir Route Start Time Stop Time Status Last Admin (Zofran Inj) 4 mg Q6HR PRN IV PUSH 05/08/17 15:45 05/14/17 07:57 (NS Flush) 2 ml UNSCH PRN IV FLUSH 05/09/17 19:15 (NS Flush) 2 ml BID IV FLUSH 05/09/17 21:00 05/14/17 07:59 (Narcan Inj) 0.4 mg UNSCH PRN IV PUSH 05/09/17 19:15 (Proair Hfa Inh) 2 puff Q4H PRN INH 05/09/17 19:15 (Flovent Hfa 44 Mcg Inh) 2 puff BID INH 05/09/17 21:00 05/12/17 20:01 (Serevent Diskus Inh) 50 mcg BID INH 05/09/17 21:00 05/12/17 20:02 (Heparin Inj) 5,000 units Q12H SQ 05/10/17 18:00 05/14/17 06:34 (Neosynephrine 1% Guillermo Spr) 2 spray Q4H PRN NASAL 05/10/17 11:15 05/10/17 21:34 (Pepcid) 10 mg BID PO 05/10/17 21:00 05/14/17 07:54 (Mag-Ox) 400 mg HS PO 05/10/17 21:00 05/13/17 21:25 (Lopressor) 50 mg BID PO 05/10/17 13:00 05/14/17 07:54 (KCl) 20 meq DAILY PO 05/11/17 09:00 05/14/17 07:54 (Deltasone) 5 mg DAILY PO 05/10/17 11:45 05/14/17 07:54 (Zoloft) 200 mg DAILY PO 05/10/17 11:45 05/14/17 07:54 (Pravachol) 40 mg HS PO 05/10/17 21:00 05/13/17 21:25 (SandIMMUNE) 100 mg DAILY PO 05/10/17 11:45 05/14/17 07:54 (Cellcept) 500 mg BID@06,18 PO 05/10/17 18:00 05/14/17 06:33 (Colace) 100 mg TID PO 05/10/17 13:00 05/14/17 07:54 (Apresoline Inj) 20 mg Q1H PRN IV PUSH 05/11/17 02:15 05/14/17 03:53 (D50w (Vial) Inj) 50 ml UNSCH PRN IV PUSH 05/11/17 09:30 (Glucagon Inj) 1 mg UNSCH PRN OTHER 05/11/17 09:30 (NovoLOG SUPPLEMENTAL SCALE) 1 ACHS SLIDING SCALE SQ 05/11/17 12:00 05/13/17 21:00 (Catapres) 0.1 mg Q6H PRN PO 05/11/17 09:45 05/13/17 01:18 (Ultram) 50 mg Q6H PRN PO 05/12/17 12:00 05/14/17 07:54 (NovoLIN N INJ) 25 units BID SQ 05/12/17 21:00 05/13/17 21:35 (Norvasc) 10 mg DAILY PO 05/15/17 09:00 Assessment and Plan Assessment and Plan Urologic impression: #1 status post robot-assisted laparoscopic right radical nephrectomy #2 hemodynamically stable #3 slow steady progress #4 appreciate assistance from medical service for blood pressure management and diabetes control Plan: #1 continue with tramadol prn #2 PT to continue with ambulation exercises #3 OT evaluation appreciated #4 discharged to inpatient rehabilitation #5 case management reconsulted to facilitate rehabilitation placement Chinedu Torres MD May 14, 2017 13:27
[2017-05-14] MEDS: cloNIDine HCL 0.1 MG TAB PO PRN (20:40)
[2017-05-14] MEDS: PRAVASTATIN SOD 40 MG TAB PO SCH (20:40)
[2017-05-14] MEDS: MAGNESIUM OXIDE 400 MG TAB PO SCH (20:40)
[2017-05-15] VITALS (11 sets, daily range): BP systolic 151–160; BP diastolic 66–72; PULSE 58–68; RESP 18–20; TEMP 98.6–98.8; O2SAT 96
[2017-05-15] MEDS: hydrALAZINE HCL 20 MG/ML VIAL IV PUSH PRN (00:47)
[2017-05-15] MEDS: traMADol HCL 50 MG TAB PO PRN (03:57)
[2017-05-15] MEDS: HEPARIN SODIUM - SQ 10,000 UNITS/ML VIAL SQ SCH (06:11)
[2017-05-15] MEDS: MYCOPHENOLATE MOFETIL 500 MG TAB PO SCH (06:11)
[2017-05-15] MEDS: INSULIN ASPART SUPPLEMENTAL SCALE SQ SCH (07:41)
[2017-05-15] MEDS: INSULIN HUMAN NPH 1,000 UNITS/10 ML VIAL SQ SCH (07:41)
[2017-05-15] MEDS: POTASSIUM CHLORIDE 20 MEQ CONTROLLED RELEASE TAB PO SCH (07:42)
[2017-05-15] MEDS: cycloSPORINE 100 MG CAP PO SCH (07:42)
[2017-05-15] MEDS: DOCUSATE SODIUM 100 MG CAP PO SCH (07:42)
[2017-05-15] MEDS: SERTRALINE HCL 100 MG TAB PO SCH (07:43)
[2017-05-15] MEDS: FLUTICASONE PROPIONATE 44 MCG/ACT 10.6 GM INHALER INH SCH (07:43)
[2017-05-15] MEDS: FAMOTIDINE 20 MG TAB PO SCH (07:43)
[2017-05-15] MEDS: predniSONE 5 MG TAB PO SCH (07:43)
[2017-05-15] MEDS: SODIUM CHLORIDE 0.9% FLUSH 10 ML FLUSH IV FLUSH SCH (07:43)
[2017-05-15] MEDS: SALMETEROL XINAFOATE 50 MCG DISKUS INH SCH (07:44)
[2017-05-15] MEDS: METOPROLOL TARTRATE 50 MG TAB PO SCH (07:48)
[2017-05-23] MEDS ORDERED: SALM50I INH (09:45)
[2017-05-23] MEDS ORDERED: ZOFR4TAB3 SL (09:45)
[2017-05-23] MEDS ORDERED: EQ N NASAL (09:45)
[2017-05-23] MEDS ORDERED: METO25TA3 PO (09:45)
[2017-05-23] MEDS ORDERED: ZOLO100T PO (09:45)
[2017-05-23] MEDS ORDERED: ASPI81TA81 PO (09:45)
[2017-05-23] MEDS ORDERED: LEVEMIR SQ (09:45)
[2017-05-23] MEDS ORDERED: FAMO1TAB37 PO (09:45)
[2017-05-23] MEDS ORDERED: SENN1TAB PO (09:45)
[2017-05-23] MEDS ORDERED: POTA-163 PO (09:45)
[2017-05-23] MEDS ORDERED: MYCO500 PO (09:45)
[2017-05-23] MEDS ORDERED: WOMETAB2 PO (09:45)
[2017-05-23] MEDS ORDERED: MAGN1TAB14 PO (09:45)
[2017-05-23] MEDS ORDERED: NEOR100 PO (09:45)
[2017-05-23] MEDS ORDERED: ZOCO20TA PO (09:45)
[2017-05-23] MEDS ORDERED: AMLO5 PO (09:45)
[2017-05-23] MEDS ORDERED: FERR325T20 PO (09:45)
[2017-05-23] MEDS ORDERED: CALCTAB25 PO (09:45)
[2017-05-23] MEDS ORDERED: VENTAER INH (09:45)
[2017-05-23] MEDS ORDERED: PRED5TAB PO (09:45)
[2017-05-23] MEDS ORDERED: FLUTI44I INH (09:45)
[2017-05-23] MEDS ORDERED: HYDR-3516 PO (09:49)
[2017-05-23] MEDS ORDERED: METO50TA PO (09:56)
[2017-05-23] MEDS ORDERED: NOVOLOGP2 SQ (10:53)
[2017-05-23] MEDS ORDERED: INSU1MIS15 (10:53)
[2017-06-01] MEDS ORDERED: PERC5TAB12 PO (11:44)
[2017-06-01] MEDS ORDERED: PROM25TA10 PO (11:44)
== END 2017-05-15 10:46 | DRG 657 ==
LOC: NEDH 14:28 → NEPGCP 14:28 → N03B 05-09 12:20 → N07B 05-09 13:20 → OBSVTOIN 05-09 18:58 → HCIN 05-09 23:16
PROVIDERS: ADMIT Urology; ATTEND Urology
PROC: 8E0W4CZ Robotic Assisted Procedure of Trunk Region, Percutaneous Endoscopic Approach (ICD-10-PCS; 2017-05-09)
PROC: 0TT04ZZ Resection of Right Kidney, Percutaneous Endoscopic Approach (ICD-10-PCS; principal; 2017-05-09 12:13)
DX: C64.1 Malignant neoplasm of right kidney, except renal pelvis (principal); Z94.0 Kidney transplant status; N18.4 Chronic kidney disease, stage 4 (severe); E11.22 Type 2 diabetes mellitus with diabetic chronic kidney disease; Z79.4 Long term (current) use of insulin; J45.909 Unspecified asthma, uncomplicated; I12.9 Hypertensive chronic kidney disease with stage 1 through stage 4 chronic kidney disease, or unspecified chronic kidney disease; K21.9 Gastro-esophageal reflux disease without esophagitis; G47.30 Sleep apnea, unspecified; E78.5 Hyperlipidemia, unspecified; R11.0 Nausea; Z23 Encounter for immunization
CPT/HCPCS: 36430; 76937; 80048; 82805; 82948; 85014; 85018; 86850; 86900; 86901; 86920; 88307; 90471; 90686; 94002; 94150; 94664; G0008; J0360; J0690; J1170; J1644; J1815; J2250; J2405; J3010; J7030; J7120; J7502; J7512; J7517; J7613; P9016; Q2038

== ENCOUNTER 2017-07-07 20:47 | Inpatient (IN) | payer MEDICARE, MEDICAID ==
[~2017-07-07] VITALS: Ht 182.9 cm; Wt 160.0 kg
[~2017-07-07 20:47] MED LIST changes: +AMLO5 PO; -ASPI81TA81; +ASPI81TA81 PO; -CALCTAB25; +CALCTAB25 PO; +EQ N NASAL; +FERR325T20 PO; -HUMALOG SQ; -HYDR-3288 PO; +HYDR-3516 PO; -INSU100V3 SQ; +INSU1MIS15; +INSULIN REGULAR (IV INFUSION) 100 UNITS in SODIUM CHLORIDE 0.9% INJ 99 ML IV PRN; +LEVEMIR SQ; -MAGN1TAB14 PO; +NOVOLOGP2 SQ; +PERC5TAB12 PO; -POTA-163 PO; +PROM25TA10 PO; +SENN1TAB PO; +TRAM50 PO; -WOMETAB2; +WOMETAB2 PO
[2017-07-07 20:55] VITALS: BP 146/68; PULSE 63; RESP 22; TEMP 98.1; O2SAT 96
[2017-07-07] MEDS ORDERED: SODIUM CHLOR 0.9% 1000 ML INJ 1,000 ML IV ONE (21:30)
[2017-07-07] MEDS ORDERED: INSULIN HUMAN REGULAR 1,000 UNITS/10 ML VIAL IV PUSH ONE ×2 (21:30→23:30)
--- NOTE | 2017-07-07 21:43 | PD ---
HPI Chief Complaint: Abdominal Pain Time Seen by Provider: 20:50 Travel History International Travel<30 days: No Contact w/Intl Traveler<30days: No Traveled to known affect area: No History of Present Illness HPI Patient is a 56-year-old female who had recent renal cell carcinoma and her knee done in May. She R he had a renal transplant from her 's kidney because he she had failing kidneys from diabetes. She is morbidly obese and she is hypertensive as well. Since she had the renal transplant and the surgery of the nephrectomy she has been in rehabilitation for the last 2 weeks. She says her sugars are always out of control and she has been nauseous entire time. In the ER she does not appear toxic she is not complaining of pain she is only complaining of generalized nausea and feeling weak generalized she has no visiting nurse service and feels overwhelmed at home her does not help her she says. SHe took zofran without relief of her nausea and she tried her home meds to control Blood Glucose without relief. PFSH Past Medical History Arthritis: Yes Asthma: Yes Autoimmune Disease: No Blood Disorders: No Anxiety: No Depression: Yes Heart Rhythm Problems: No Cancer: No Cardiovascular Problems: Yes High Cholesterol: Yes Chemotherapy: No Chest Pain: No Congestive Heart Failure: No COPD: Yes Diabetes: Yes Patient Takes Glucophage: No Diminished Hearing: No Endocrine: Yes (Diabetes) Gastrointestinal Disorders: Yes (Nausea) GERD: No Glaucoma: No Genitourinary: Yes Hepatitis: No Hiatal Hernia: No Hypertension: Yes Immune Disorder: Yes (On anti-rejection medication for kidney transplantation) Kidney Stones: No Musculoskeletal: Yes (Charcot fractures in feet) Neurologic: No Psychiatric: Yes Reproductive: Yes Respiratory: Yes Myocardial Infarction: No Radiation Therapy: No Renal Failure: Yes Sickle Cell Disease: No Sleep Apnea: Yes (Uses a CPAP) Thyroid Disease: No Ulcer: No : 2 Para: 1 Miscarriage: 1 Past Surgical History Abdominal Surgery: Yes (Nephrectomy and with son) AICD: No Arteriovenous Shunt: No Body Medical Devices: kidney Cardiac Surgery: No Section: Yes Cholecystectomy: Yes Ear Surgery: No Endocrine Surgery: No Genitourinary Surgery: Yes (R NEPHRECTOMY) Gynecologic Surgery: Yes ( with son) Insulin Pump: No Joint Replacement: No Neurologic Surgery: Yes (Fused lumbar spine) Oral Surgery: No Pacemaker: No Thoracic Surgery: No Tonsillectomy: Yes Other Surgery: Yes (KIDNEY TRANSPLANT) Social History Alcohol Use: Yes (SOCIALLY) Tobacco Use: No Substance Use: No Allergies-Medications (Allergen,Severity, Reaction): Coded Allergies: adhesive (Unverified Allergy, Severe, SILK TAPE, 07/07/17) NSAIDS (Non-Steroidal Anti-Inflamma (Verified Adverse Reaction, Severe, Nausea/Vomiting, 07/07/17) Reported Meds & Prescriptions Reported Meds & Active Scripts Active Percocet (Oxycodone-Acetaminophen) 5-325 mg Tab 1-2 Tab PO Q6H PRN Phenergan (Promethazine HCl) 25 Mg Tablet 25 Mg PO Q6H PRN Novolog Inj (Insulin Aspart) 1,000 Unit/10 Ml Vial 1-9 Units SQ ACHS Max dose at bedtime:( )units; sugars less than 70,(0)units; sugars 150-199,(1) unit; sugars 200-249,(3) units; sugars 250-299,(5) units; sugars 300-349,(7) units; sugars greater than 349,(9) units Insulin Syringe/U-100/31G X 12/20" 1 ml 31 Gauge X 12/20" Mis Ea .ROUTE DIRECTED Metoprolol Tartrate 50 Mg Tab 50 Mg PO BID Hydrocodone-Acetaminophen 5-325 mg Tab 1 Tab PO Q8HR PRN Levemir Inj (Insulin Detemir) 1,000 unit/ 10 ML Vial 10 Units SQ BID 30 Days Do not mix with any other Insulin. Ferosul (Ferrous Sulfate) 325 Mg (65 Mg Iron) Tablet 325 Mg PO BID@,17 30 Days Senna Plus 8.6-50 mg (Sennosides-Docusate Sodium) 8.6 Mg-50 Mg Tab 1 Tab PO BID 30 Days Norvasc (Amlodipine Besylate) 5 Mg Tab 10 Mg PO DAILY Eq Nasal [place] Fast Actin (Phenylephrine HCl) 1 % Spr 1 [place] NASAL DAILY PRN Zofran Odt (Ondansetron Odt) 4 Mg Tab 4 Mg SL Q6HR PRN Zoloft (Sertraline HCl) 100 Mg Tab 200 Mg PO DAILY Flovent Hfa 10.6 GM Inh (Fluticasone Propionate) 44 Mcg/Act Inh 2 Puff INH BID Use daily at the same time. Serevent Diskus Inh (Salmeterol Xinafoate) 50 Mcg/Act Aero 50 Mcg INH BID Ventolin Hfa 18 GM Inh (Albuterol Sulfate) 90 Mcg/Act Aer 2 Puff INH Q4H PRN Calcium 500 + Vit D Caplet (Calcium Carbonate/Vitamin D3) 1 Each Tablet 1 Cap PO BIDPC 30 Days Womens Daily Formula (Multiple Vitamins W/ Minerals) 1 Tab Tab 1 Cap PO DAILY 30 Days Aspir-81 (Aspirin) 81 Mg Tabdr 81 Mg PO DAILY 30 Days Zocor (Simvastatin) 20 Mg Tab 20 Mg PO HS Pepcid (Famotidine) 20 Mg Tab 20 Mg PO BID Prednisone 5 Mg Tab 5 Mg PO DAILY 30 Days Cellcept (Mycophenolate Mofetil) 500 Mg Tab 500 Mg PO BID Neoral (Cyclosporine (Modified)) 100 Mg Cap 125 Mg PO DAILY 30 Days Ultram (Tramadol HCl) 50 Mg Tab 50 Mg PO Q6H PRN Physical Exam Narrative GENERAL: Morbidly obese shirt half open exposing large old hypoumbilical scar SKIN: Warm and dry. HEAD: Atraumatic. Normocephalic. EYES: Pupils equal and round. No scleral icterus. No injection or drainage. ENT: No nasal bleeding or discharge. Mucous membranes pink and moist. NECK: Trachea midline. No JVD. CARDIOVASCULAR: Regular rate and rhythm. RESPIRATORY: No accessory muscle use. Clear to auscultation. Breath sounds equal bilaterally. GASTROINTESTINAL: Abdomen Severely obese and has old scar from umbilicus to pubic symphysis non-tender, distended. Hepatic and splenic margins not palpable. MUSCULOSKELETAL: Extremities obese legs non pitting swollen ankle bilateral NEUROLOGICAL: Awake and alert. No obvious cranial nerve deficits. Motor grossly within normal limits. Five out of 5 muscle strength in the arms and legs. Normal speech. PSYCHIATRIC: Appropriate mood and affect; insight and judgment normal. Bedside POC BGM over limit hi reading Data Data Last Documented VS Vital Signs Date Time Temp Pulse Resp B/P (MAP) Pulse Ox O2 Delivery O2 Flow Rate FiO2 07/07/17 20:55 98.1 63 22 146/68 (94) 96 Orders Orders Insulin Human Regular Inj (Novolin R Inj (07/07/17 21:30) Sodium Chlor 0.9% 1000 Ml Inj (Ns 1000 M (07/07/17 21:30) Complete Blood Count With Diff (07/07/17 21:22) Comprehensive Metabolic Panel (07/07/17 21:22) Lipase (07/07/17 21:22) Urinalysis - C+S If Indicated (07/07/17 21:23) Beta Hydroxybutyrate (Acetone) (07/07/17 21:43) Blood Gas Venous Ph (07/07/17 21:43) Insulin Human Regular Inj (Novolin R Inj (07/07/17 23:30) Admit Order (Ed Use Only) (07/07/17 23:54) Labs Laboratory Tests Test 07/07/17 21:20 07/07/17 22:35 White Blood Count 6.8 TH/MM3 Red Blood Count 2.62 MIL/MM3 Hemoglobin 7.6 GM/DL Hematocrit 24.3 % Mean Corpuscular Volume 92.7 FL Mean Corpuscular Hemoglobin 28.9 PG Mean Corpuscular Hemoglobin Concent 31.2 % Red Cell Distribution Width 14.9 % Platelet Count 144 TH/MM3 Mean Platelet Volume 8.7 FL Neutrophils (%) (Auto) 85.1 % Lymphocytes (%) (Auto) 7.2 % Monocytes (%) (Auto) 5.5 % Eosinophils (%) (Auto) 1.0 % Basophils (%) (Auto) 1.2 % Neutrophils # (Auto) 5.8 TH/MM3 Lymphocytes # (Auto) 0.5 TH/MM3 Monocytes # (Auto) 0.4 TH/MM3 Eosinophils # (Auto) 0.1 TH/MM3 Basophils # (Auto) 0.1 TH/MM3 CBC Comment DIFF FINAL Differential Comment Blood Urea Nitrogen 79 MG/DL Creatinine 3.81 MG/DL Random Glucose 656 MG/DL Total Protein 6.6 GM/DL Albumin 3.3 GM/DL Calcium Level 8.4 MG/DL Alkaline Phosphatase 115 U/L Aspartate Amino Transf (AST/SGOT) 14 U/L Alanine Aminotransferase (ALT/SGPT) 19 U/L Total Bilirubin 0.3 MG/DL Sodium Level 130 MEQ/L Potassium Level 5.8 MEQ/L Chloride Level 99 MEQ/L Carbon Dioxide Level 24.3 MEQ/L Anion Gap 7 MEQ/L Estimat Glomerular Filtration Rate 12 ML/MIN Lipase 88 U/L B-Hydroxybutyrate 0.57 MMOL/L Venous Blood pH 7.21 MDM Medical Decision Making Medical Screen Exam Complete: Yes Emergency Medical Condition: Yes Medical Record Reviewed: Yes Differential Diagnosis pt has severely uncontrolled DM causing her nausea and general malaise vs UTI vs nausea of chronic illness, Acidosis from glucose levels cause mild chronic nausea most likely Dx Narrative Course Pt is Given 8 U then 6 U of Novolin R and then 2 liters to wash down her BG and acid[facility] Blood Glucose control Brady Dhillon MD Jul 07, 2017 21:43
[2017-07-07 21:44] LABS: AUTOMATED NEUTROPHIL # 5.8 TH/MM3 (1.8-7.7); BASOPHIL # 0.1 TH/MM3 (0-0.2); BASOPHIL % 1.2 % (0.0-2.0); EOSINOPHIL # 0.1 TH/MM3 (0-0.4); HEMATOCRIT 24.3 % (35.0-46.0); HEMO FLAGS DIFF FINAL; LYMPH % 7.2 % (9.0-44.0); LYMPHOCYTE # 0.5 TH/MM3 (1.0-4.8); MEAN CELL VOLUME 92.7 FL (80.0-100.0); MEAN CORPUSCULAR HEMOGLOBIN 28.9 PG (27.0-34.0); MEAN CORPUSCULAR HGB CONC 31.2 % (32.0-36.0); MONO % 5.5 % (0.0-8.0); NEUT % 85.1 % (16.0-70.0); PLATELET COUNT 144 TH/MM3 (150-450); RED BLOOD COUNT 2.62 MIL/MM3 (4.00-5.30); RED CELL DISTRIBUTION WIDTH 14.9 % (11.6-17.2); WHITE BLOOD COUNT 6.8 TH/MM3 (4.0-11.0)
[2017-07-07 21:56] LABS: ANION GAP 7 MEQ/L (5-15)
[2017-07-07 22:00] LABS: ALKALINE PHOSPHATASE 115 U/L (45-117); ALT (GPT) 19 U/L (10-53); AST (GOT) 14 U/L (15-37); BICARBONATE 24.3 MEQ/L (21.0-32.0); BLOOD UREA NITROGEN 79 MG/DL (7-18); CHLORIDE 99 MEQ/L (98-107); GLOMERULAR FILTRATION RATE 12 ML/MIN (>89); POTASSIUM 5.8 MEQ/L (3.5-5.1); SODIUM (NA) 130 MEQ/L (136-145); TOTAL BILIRUBIN ADULT 0.3 MG/DL (0.2-1.0)
[2017-07-07] MEDS ORDERED: INSULIN REGULAR (IV INFUSION) 100 UNITS in SODIUM CHLORIDE 0.9% INJ 99 ML IV PRN (23:45)
[2017-07-08] VITALS (8 sets, daily range): BP systolic 133–159; BP diastolic 64–74; PULSE 55–68; RESP 16–18; TEMP 95.6–97.8; O2SAT 90–94
[2017-07-08] MEDS ORDERED: ALBUTEROL SULFATE 90 MCG/ACT HFA 8 GM INHALER INH PRN
[2017-07-08] MEDS ORDERED: SENNOSIDES 8.6 MG TAB PO PRN
[2017-07-08] MEDS ORDERED: SODIUM CHLOR 0.9% 1000 ML INJ 1,000 ML IV ONE
[2017-07-08] MEDS ORDERED: BISACODYL 10 MG SUPP RECTAL PRN
[2017-07-08] MEDS ORDERED: MAGNESIUM HYDROXIDE SUSP 30 ML CUP PO PRN
[2017-07-08] MEDS ORDERED: SODIUM CHLORIDE 0.9% FLUSH 10 ML FLUSH IV FLUSH PRN
[2017-07-08] MEDS ORDERED: ACETAMINOPHEN 325 MG TAB PO PRN
[2017-07-08] MEDS ORDERED: ONDANSETRON HCL 4 MG/2 ML VIAL IVP PRN
[2017-07-08] MEDS ORDERED: LACTULOSE SYRUP 20 GM/30 ML CUP PO PRN
[2017-07-08] MEDS ORDERED: MORPHINE SULFATE 4 MG/ML INJ IV PUSH PRN
[2017-07-08] MEDS ORDERED: INSULIN HUMAN REGULAR 1,000 UNITS/10 ML VIAL IV PUSH ONE ×3 (01:30→04:45)
--- NOTE | 2017-07-08 01:30 | HHI.HP ---
[facility] Primary [facility] Physician No Primary Care Physician Admission Diagnosis Hyperglycemia Diagnoses: (1) DM (diabetes mellitus) Diagnosis: Principal (2) Hyperkalemia Diagnosis: Principal (3) EDITH (acute kidney injury) Diagnosis: Principal (4) Anemia Diagnosis: Principal (5) Thrombocytopenia Diagnosis: Principal (6) S/p nephrectomy Diagnosis: Principal Travel History International Travel<30 Days: No Contact w/Intl Traveler <30 Da: No Traveled to Known Affected Are: No History of Present Illness This is a 56-year-old female with a PMH of HTN, Hyperlipidemia, Depression, Morbid Obesity, CKD s/p Renal Transplant, Renal Cell CA s/p Right Nephrectomy, DM and Sleep Apnea who presented to the ER w/ complaints of generalized fatigue , nausea/vomiting, decreased PO intake and uncontrolled BS. States symptoms have been ongoing since being d/c'd from Rehab after her Nephrectomy. Denies fever, chills or diarrhea. On arrival, BP 146/68, HR 63, O2 sat 96% on 3L NC, Afebrile. Hemoglobin 7.6, previously 7.8 on 05/20/17. Platelets 144, previously 149 on 05/18/17. Creatinine 3.81, previously 1.95 on 05/21/17. BS 656. CO2 24.3. K+ 5.8. S/p Insulin 14u in ER and IVF. Review of Systems Except as stated in HPI: all other systems reviewed are Neg ROS: 14 point review of systems otherwise negative. Past Family Social History Past Medical History PMH: HTN, Hyperlipidemia, Depression, Morbid Obesity, CKD s/p Renal Transplant , Renal Cell CA s/p Right Nephrectomy, DM and Sleep Apnea Past Surgical History PAST SURGICAL HISTORY: , Right Nephrectomy, Kidney Transplant, Tonsillectomy ROM a Lumbar Surgery, Cholecystectomy Allergies: Coded Allergies: adhesive (Unverified Allergy, Severe, SILK TAPE, 07/07/17) NSAIDS (Non-Steroidal Anti-Inflamma (Verified Adverse Reaction, Severe, Nausea/Vomiting, 07/07/17) Family History PAST FAMILY HISTORY: Reviewed. No h/o DM or CAD Social History PAST SOCIAL HISTORY: Occasional alcohol. Negative for tobacco or drugs. Physical Exam Vital Signs Vital Signs Date Time Temp Pulse Resp B/P (MAP) Pulse Ox O2 Delivery O2 Flow Rate FiO2 07/08/17 00:43 59 23 133/70 (91) 99 Nasal Cannula 3.00 07/08/17 00:35 Nasal Cannula 3.00 07/07/17 20:55 98.1 63 22 146/68 (94) 96 Physical Exam PE: GENERAL: Morbidly obese middle-aged white female in no acute distress. HEENT: PERRLA, EOMI. No scleral icterus or conjunctival pallor. No lid lag or facial droop. CARDIOVASCULAR: Regular rate and rhythm. No obvious murmurs to auscultation. No chest tenderness to palpation. RESPIRATORY: No obvious rhonchi or wheezing. Clear to auscultation. Breath sounds equal bilaterally. GASTROINTESTINAL: Abdomen soft, non-tender, nondistended. BS normal. MUSCULOSKELETAL: Extremities without clubbing, cyanosis, or edema. No obvious deformities. NEUROLOGICAL: Awake, alert and oriented x4. No focal neurologic deficits. Moving both upper and lower extremities spontaneously. Laboratory Laboratory Tests Test 07/07/17 21:20 07/07/17 22:35 White Blood Count 6.8 Red Blood Count 2.62 Hemoglobin 7.6 Hematocrit 24.3 Mean Corpuscular Volume 92.7 Mean Corpuscular Hemoglobin 28.9 Mean Corpuscular Hemoglobin Concent 31.2 Red Cell Distribution Width 14.9 Platelet Count 144 Mean Platelet Volume 8.7 Neutrophils (%) (Auto) 85.1 Lymphocytes (%) (Auto) 7.2 Monocytes (%) (Auto) 5.5 Eosinophils (%) (Auto) 1.0 Basophils (%) (Auto) 1.2 Neutrophils # (Auto) 5.8 Lymphocytes # (Auto) 0.5 Monocytes # (Auto) 0.4 Eosinophils # (Auto) 0.1 Basophils # (Auto) 0.1 CBC Comment DIFF FINAL Differential Comment Blood Urea Nitrogen 79 Creatinine 3.81 Random Glucose 656 Total Protein 6.6 Albumin 3.3 Calcium Level 8.4 Alkaline Phosphatase 115 Aspartate Amino Transf (AST/SGOT) 14 Alanine Aminotransferase (ALT/SGPT) 19 Total Bilirubin 0.3 Sodium Level 130 Potassium Level 5.8 Chloride Level 99 Carbon Dioxide Level 24.3 Anion Gap 7 Estimat Glomerular Filtration Rate 12 Lipase 88 B-Hydroxybutyrate 0.57 Venous Blood pH 7.21 Result Diagram: 07/07/17211907/07/172119 Caprini VTE Risk Assessment Caprini VTE Risk Assessment: Mod/High Risk (score >= 2) Caprini Risk Assessment Model Point Value = 1 Point Value = 2 Point Value = 3 Point Value = 5 Age 41-60 Minor surgery BMI > 25 kg/m2 Swollen legs Varicose veins or History of unexplained or recurrent spontaneous Oral contraceptives or hormone replacement Sepsis (< 1 month) Serious lung disease, including pneumonia (< 1 month) Abnormal pulmonary function Acute myocardial infarction Congestive heart failure (< 1 month) History of inflammatory bowel disease Medical patient at bed rest Age 61-74 Arthroscopic surgery Major open surgery (> 45 min) Laparoscopic surgery (> 45 min) Malignancy Confined to bed (> 72 hours) Immobilizing plaster cast Central venous access Age >= 75 History of VTE Family history of VTE Factor V Leiden Prothrombin [id number] Lupus anticoagulant Anticardiolipin antibodies Elevated serum homocysteine Heparin-induced thrombocytopenia Other congenital or acquired thrombophilia Stroke (< 1 month) Elective arthroplasty Hip, pelvis, or leg fracture Acute spinal cord injury (< 1 month) Prophylaxis Regimen Total Risk Factor Score Risk Level Prophylaxis Regimen 0-1 Low Early ambulation 2 Moderate Order ONE of the following: *Sequential Compression Device (SCD) *Heparin 5000 units SQ BID 3-4 Higher Order ONE of the following medications: *Heparin 5000 units SQ TID *Enoxaparin/Lovenox 40 mg SQ daily (WT < 150 kg, CrCl > 30 mL/min) *Enoxaparin/Lovenox 30 mg SQ daily (WT < 150 kg, CrCl > 10-29 mL/min) *Enoxaparin/Lovenox 30 mg SQ BID (WT < 150 kg, CrCl > 30 mL/min) AND/OR *Sequential Compression Device (SCD) 5 or more Highest Order ONE of the following medications: *Heparin 5000 units SQ TID (Preferred with Epidurals) *Enoxaparin/Lovenox 40 mg SQ daily (WT < 150 kg, CrCl > 30 mL/min) *Enoxaparin/Lovenox 30 mg SQ daily (WT < 150 kg, CrCl > 10-29 mL/min) *Enoxaparin/Lovenox 30 mg SQ BID (WT < 150 kg, CrCl > 30 mL/min) AND *Sequential Compression Device (SCD) Assessment and Plan Problem List: (1) DM (diabetes mellitus) ICD Code: E11.9 - Type 2 diabetes mellitus without complications (2) Hyperkalemia ICD Code: E87.5 - Hyperkalemia (3) EDITH (acute kidney injury) ICD Code: N17.9 - Acute kidney failure, unspecified (4) Anemia ICD Code: D64.9 - Anemia, unspecified (5) Thrombocytopenia ICD Code: D69.6 - Thrombocytopenia, unspecified (6) S/p nephrectomy ICD Code: Z90.5 - Acquired absence of kidney Assessment and Plan A/P: 1. DM: Uncontrolled. On Levemir 10u bid, recent admit s/p Nephrectomy w/ uncontrolled blood sugars, increased to Levemir 10u. BS 656, no acidosis, no DKA. S/p Insulin 14u in ER and IVF, continue w/ IVF for hydration, resume home Levemir, Sliding scale w/ Accu-Cheks. 2. Hyperkalemia: K+ 5.8. Chronic. Low K+ Diet. Monitor K+ 3. EDITH: Acute on Chronic. Creatinine 3.81, previously 1.95 on 05/21/17, IVF for hydration, repeat labs in am. 4. Thrombocytopenia: Chronic. Platelets 144, producing 149 05/18/17. No active bleeding at this time. Will monitor. 5. Anemia: Chronic. Hgb 7.6, previously 7.8 on 05/20/17, will monitor, transfuse as needed. 6. S/p Right Nephrectomy: secondary to Renal Cell CA 05/09/[address] Torres. Monitor renal function as above. 7. DVT Prophylaxis: SCD/Teds. 8. Social work for d/c planning as needed. 9. Case discussed w/ ER physician at length. Physician Certification 2 Midnight Certification Type: Admission for Inpatient Services Order for Inpatient Services The services are ordered in accordance with Medicare regulations or non- Medicare payer requirements, as applicable. In the case of services not specified as inpatient-only, they are appropriately provided as inpatient services in accordance with the 2-midnight benchmark. Estimated LOS (days): 2 days is the estimated time the patient will need to remain in the hospital, assuming treatment plan goals are met and no additional complications. Post-Hospital Plan: Not yet determined Nathaly Castano MD Jul 08, 2017 01:30
[2017-07-08 06:19] LABS: AUTOMATED NEUTROPHIL # 4.7 TH/MM3 (1.8-7.7); BASOPHIL % 0.7 % (0.0-2.0); EOSINOPHIL # 0.1 TH/MM3 (0-0.4); EOSINOPHIL % 1.6 % (0.0-4.0); HEMO FLAGS DIFF FINAL; LYMPH % 12.7 % (9.0-44.0); LYMPHOCYTE # 0.8 TH/MM3 (1.0-4.8); MEAN CELL VOLUME 90.1 FL (80.0-100.0); MEAN CORPUSCULAR HEMOGLOBIN 28.3 PG (27.0-34.0); MEAN CORPUSCULAR HGB CONC 31.4 % (32.0-36.0); MONO % 10.1 % (0.0-8.0); NEUT % 74.9 % (16.0-70.0); PLATELET COUNT 131 TH/MM3 (150-450); RED BLOOD COUNT 2.66 MIL/MM3 (4.00-5.30); RED CELL DISTRIBUTION WIDTH 14.4 % (11.6-17.2); WHITE BLOOD COUNT 6.3 TH/MM3 (4.0-11.0)
[2017-07-08] MEDS: INSULIN ASPART SUPPLEMENTAL SCALE SQ SCH ×4 (06:27→20:39)
[2017-07-08 06:43] LABS: ALKALINE PHOSPHATASE 110 U/L (45-117); ALT (GPT) 18 U/L (10-53); ANION GAP 9 MEQ/L (5-15); AST (GOT) 8 U/L (15-37); BICARBONATE 21.1 MEQ/L (21.0-32.0); BLOOD UREA NITROGEN 74 MG/DL (7-18); CHLORIDE 103 MEQ/L (98-107); GLOMERULAR FILTRATION RATE 13 ML/MIN (>89); POTASSIUM 4.6 MEQ/L (3.5-5.1); SODIUM (NA) 133 MEQ/L (136-145); TOTAL BILIRUBIN ADULT 0.2 MG/DL (0.2-1.0)
[2017-07-08] MEDS ORDERED: INSULIN ASPART SUPPLEMENTAL SCALE SQ SCH ×3 (08:00→12:00)
[2017-07-08] MEDS: DOCUSATE SODIUM 50 MG/SENNA 8.6 MG TAB PO SCH ×2 (08:37→20:38)
[2017-07-08] MEDS: SODIUM CHLORIDE 0.9% FLUSH 10 ML FLUSH IV FLUSH SCH ×2 (08:37→20:44)
[2017-07-08] MEDS: predniSONE 5 MG TAB PO SCH (08:37)
[2017-07-08] MEDS: SERTRALINE HCL 100 MG TAB PO SCH (08:37)
[2017-07-08] MEDS: METOPROLOL TARTRATE 50 MG TAB PO SCH ×2 (08:37→20:38)
[2017-07-08] MEDS: amLODIPine BESYLATE 5 MG TAB PO SCH (08:37)
[2017-07-08] MEDS ORDERED: INSULIN DETEMIR 100 UNITS/ML VIAL SQ ONE ×2 (09:00)
[2017-07-08] MEDS ORDERED: GLUCAGON 1 MG/ML VIAL OTHER PRN ×2 (09:00)
[2017-07-08] MEDS ORDERED: INSULIN DETEMIR 100 UNITS/ML VIAL SQ SCH ×3 (09:00)
[2017-07-08] MEDS ORDERED: DEXTROSE 50% IN WATER 50 ML VIAL(D50) IV PUSH PRN ×2 (09:00)
[2017-07-08] MEDS: FERROUS SULFATE 325 MG (65 MG ELEMENTAL IRON) TAB PO SCH ×2 (11:55→17:12)
[2017-07-08] MEDS: SALMETEROL XINAFOATE 50 MCG DISKUS INH SCH ×2 (11:55→20:44)
[2017-07-08] MEDS: MYCOPHENOLATE MOFETIL 500 MG TAB PO SCH ×2 (11:55→20:38)
[2017-07-08] MEDS: PRAVASTATIN SOD 40 MG TAB PO SCH (20:38)
[2017-07-09 00:15] VITALS: BP 158/69; PULSE 64; RESP 19; TEMP 96.5; O2SAT 93
[2017-07-09] MEDS: ACETAMINOPHEN/HYDROcodone 325 MG/5 MG TAB PO PRN (04:18)
[2017-07-09 04:25] VITALS: BP 163/71; PULSE 69; RESP 19; TEMP 98.3; O2SAT 95
[2017-07-09 07:30] LABS: AUTOMATED NEUTROPHIL # 4.7 TH/MM3 (1.8-7.7); BASOPHIL % 0.7 % (0.0-2.0); EOSINOPHIL # 0.2 TH/MM3 (0-0.4); EOSINOPHIL % 2.3 % (0.0-4.0); HEMATOCRIT 23.7 % (35.0-46.0); HEMO FLAGS DIFF FINAL; LYMPH % 16.3 % (9.0-44.0); LYMPHOCYTE # 1.1 TH/MM3 (1.0-4.8); MEAN CELL VOLUME 87.8 FL (80.0-100.0); MEAN CORPUSCULAR HEMOGLOBIN 29.4 PG (27.0-34.0); MEAN CORPUSCULAR HGB CONC 33.5 % (32.0-36.0); MONO % 8.6 % (0.0-8.0); NEUT % 72.1 % (16.0-70.0); PLATELET COUNT 143 TH/MM3 (150-450); RED CELL DISTRIBUTION WIDTH 14.2 % (11.6-17.2); WHITE BLOOD COUNT 6.5 TH/MM3 (4.0-11.0)
[2017-07-09 08:00] VITALS: BP 158/73; PULSE 66; RESP 19; TEMP 98.3; O2SAT 94
[2017-07-09] MEDS: INSULIN ASPART SUPPLEMENTAL SCALE SQ SCH ×4 (08:00→21:56)
[2017-07-09 08:05] LABS: ALKALINE PHOSPHATASE 101 U/L (45-117); ALT (GPT) 17 U/L (10-53); ANION GAP 7 MEQ/L (5-15); AST (GOT) 9 U/L (15-37); BICARBONATE 26.3 MEQ/L (21.0-32.0); BLOOD UREA NITROGEN 67 MG/DL (7-18); CHLORIDE 106 MEQ/L (98-107); FREE T3 1.25 PG/ML (2.18-3.98); GLOMERULAR FILTRATION RATE 14 ML/MIN (>89); POTASSIUM 4.8 MEQ/L (3.5-5.1); SODIUM (NA) 139 MEQ/L (136-145); THYROXINE (T4) 2.2 MCG/DL (4.8-13.9); TOTAL BILIRUBIN ADULT 0.3 MG/DL (0.2-1.0)
[2017-07-09] MEDS: MYCOPHENOLATE MOFETIL 500 MG TAB PO SCH ×2 (08:51→21:56)
[2017-07-09] MEDS: METOPROLOL TARTRATE 50 MG TAB PO SCH ×2 (08:53→21:56)
[2017-07-09] MEDS: DOCUSATE SODIUM 50 MG/SENNA 8.6 MG TAB PO SCH ×2 (08:53→21:56)
[2017-07-09] MEDS: predniSONE 5 MG TAB PO SCH (08:53)
[2017-07-09] MEDS: SERTRALINE HCL 100 MG TAB PO SCH (08:53)
[2017-07-09] MEDS: amLODIPine BESYLATE 5 MG TAB PO SCH (08:53)
[2017-07-09] MEDS: SODIUM CHLORIDE 0.9% FLUSH 10 ML FLUSH IV FLUSH SCH ×2 (08:54→21:57)
[2017-07-09] MEDS ORDERED: INSULIN DETEMIR 100 UNITS/ML VIAL SQ SCH (09:00)
[2017-07-09] MEDS: SALMETEROL XINAFOATE 50 MCG DISKUS INH SCH ×2 (09:00→21:00)
[2017-07-09] MEDS: LEVOTHYROXINE SODIUM 50 MCG TAB PO SCH (11:52)
[2017-07-09] MEDS: FERROUS SULFATE 325 MG (65 MG ELEMENTAL IRON) TAB PO SCH ×2 (11:54→17:00)
[2017-07-09 12:00] VITALS: BP 153/76; PULSE 63; RESP 19; TEMP 98.1; O2SAT 94
--- NOTE | 2017-07-09 15:23 | HHI.PR ---
Subjective Remarks Only minimal improvement in creatinine today. CKD present. She has fatigue and weakness. Physical therapy evaluation pending. Blood sugars are much improved. Hypothyroidism present based on labs this morning. Objective Vital Signs Date Time Temp Pulse Resp B/P (MAP) Pulse Ox O2 Delivery O2 Flow Rate FiO2 07/09/17 12:00 98.1 63 19 153/76 (101) 94 07/09/17 08:00 98.3 66 19 158/73 (101) 94 07/09/17 04:25 98.3 69 19 163/71 (101) 95 07/09/17 00:15 96.5 64 19 158/69 (98) 93 07/08/17 20:00 97.8 65 18 152/73 (99) 94 07/08/17 16:00 96.7 68 18 136/66 (89) 90 07/08/17 15:31 64 I/O 07/08/17 07/08/17 07/08/17 07/09/17 07/09/17 07/09/17 07:00 15:00 23:00 07:00 15:00 23:00 Intake Total 1742 ml 60 ml 240 ml 120 ml Balance 1742 ml 60 ml 240 ml 120 ml Intake Oral 60 ml 240 ml 120 ml IV Total 1742 ml # Voids 1 0 # Bowel Movements 0 0 Result Diagram: 07/09/1771607/09/17716 Objective Remarks GENERAL: NAD, A&Ox3 HEAD: Normocephalic. NECK: Supple, trachea midline. No lymphadenopathy. EYES: No scleral icterus. No injection or drainage. CARDIOVASCULAR: Regular rate and rhythm without murmurs, gallops, or rubs. RESPIRATORY: Breath sounds equal bilaterally. No accessory muscle use. GASTROINTESTINAL: Abdomen soft, non-tender, nondistended. MUSCULOSKELETAL: No cyanosis, or edema. SKIN: Warm and dry. NEURO: No focal neurological deficitis. A/P Problem List: (1) EDITH (acute kidney injury) ICD Code: N17.9 - Acute kidney failure, unspecified Status: Acute (2) Diabetes ICD Code: E11.9 - Type 2 diabetes mellitus without complications Status: Chronic Assessment and Plan Assessment and Plan 56-year-old female admitted secondary to severe hyperglycemia and acute kidney injury Acute kidney injury on chronic renal disease Renal Cancer Status Post Nephrectomy Nephrectomy on 05/09/17 Renal function not yet to prior baseline Continue to monitor renal function Severe hyperglycemia Uncontrolled diabetes mellitus type 2 Improved Follow blood sugars Follow blood sugars Insulin sliding scale Diabetic diet Generalized weakness Continue physical therapy Continue occupational therapy Patient may need retirement facility at discharge Hyperkalemia Resolved May be related to renal function Follow potassium levels Thrombocytopenia Anemia Both of these have improved slightly Continue to monitor CBC Hypothyroidism May be contributory Supplement initiated Will need follow-up as an outpatient DVT Prophylaxis SCDs Idris Fragoso MD Jul 09, 2017 15:23
[2017-07-09 16:00] VITALS: BP 155/71; PULSE 61; RESP 19; TEMP 98.1; O2SAT 92
[2017-07-09 19:00] VITALS: BP 181/78; PULSE 64; RESP 19; TEMP 98.8; O2SAT 95
[2017-07-09] MEDS: PRAVASTATIN SOD 40 MG TAB PO SCH (21:56)
[2017-07-10] VITALS (8 sets, daily range): BP systolic 143–189; BP diastolic 72–90; PULSE 59–66; RESP 17–21; TEMP 95.8–97.8; O2SAT 93–96
[2017-07-10] MEDS: LEVOTHYROXINE SODIUM 50 MCG TAB PO SCH (06:22)
[2017-07-10] MEDS: INSULIN ASPART SUPPLEMENTAL SCALE SQ SCH ×4 (08:00→21:14)
[2017-07-10] MEDS: MYCOPHENOLATE MOFETIL 500 MG TAB PO SCH ×2 (08:43→21:14)
[2017-07-10] MEDS: DOCUSATE SODIUM 50 MG/SENNA 8.6 MG TAB PO SCH ×2 (08:43→21:14)
[2017-07-10] MEDS: SERTRALINE HCL 100 MG TAB PO SCH (08:44)
[2017-07-10] MEDS: amLODIPine BESYLATE 5 MG TAB PO SCH (08:44)
[2017-07-10] MEDS: METOPROLOL TARTRATE 50 MG TAB PO SCH ×2 (08:45→21:14)
[2017-07-10] MEDS: predniSONE 5 MG TAB PO SCH (08:45)
[2017-07-10] MEDS: SODIUM CHLORIDE 0.9% FLUSH 10 ML FLUSH IV FLUSH SCH ×2 (08:46→21:00)
[2017-07-10] MEDS: SALMETEROL XINAFOATE 50 MCG DISKUS INH SCH ×2 (08:46→21:13)
[2017-07-10] MEDS ORDERED: INSULIN DETEMIR 100 UNITS/ML VIAL SQ SCH (09:00)
[2017-07-10 11:41] LABS: HEMATOCRIT 26.1 % (35.0-46.0); MEAN CELL VOLUME 89.8 FL (80.0-100.0); MEAN CORPUSCULAR HGB CONC 32.3 % (32.0-36.0); PLATELET COUNT 132 TH/MM3 (150-450); RED CELL DISTRIBUTION WIDTH 14.8 % (11.6-17.2); REVIEW FLAG FINAL; WHITE BLOOD COUNT 6.7 TH/MM3 (4.0-11.0)
[2017-07-10] MEDS: RESP: ALBUTEROL 2.5 MG/IPRATROPIUM 0.5 MG NEB (PRN) NEB ×2 (11:50→21:20)
[2017-07-10] MEDS: FERROUS SULFATE 325 MG (65 MG ELEMENTAL IRON) TAB PO SCH ×2 (12:00→17:00)
[2017-07-10 12:04] LABS: BICARBONATE 22.5 MEQ/L (21.0-32.0); POTASSIUM 4.6 MEQ/L (3.5-5.1)
[2017-07-10] MEDS: HYDROCHLOROTHIAZIDE 25 MG TAB PO SCH (12:56)
--- NOTE | 2017-07-10 13:26 | HHI.PR ---
Subjective Remarks Not yet to baseline, but creatinine continues to improve. HTN uncontrolled this morning. Blood sugars uncontrolled this morning. PT has recommended inpatient rehab at time of discharge. Objective Vital Signs Date Time Temp Pulse Resp B/P (MAP) Pulse Ox O2 Delivery O2 Flow Rate FiO2 07/10/17 08:00 96.7 63 19 189/81 (117) 93 07/10/17 04:00 97.2 59 21 178/81 (113) 94 07/10/17 00:41 97.8 66 18 170/90 (116) 93 07/09/17 19:00 98.8 64 19 181/78 (112) 95 07/09/17 16:00 98.1 61 19 155/71 (99) 92 I/O 07/09/17 07/09/17 07/09/17 07/10/17 07/10/17 07/10/17 07:00 15:00 23:00 07:00 15:00 23:00 Intake Total 120 ml 960 ml 480 ml 250 ml Balance 120 ml 960 ml 480 ml 250 ml Intake Oral 120 ml 960 ml 480 ml 250 ml # Voids 0 2 2 1 # Bowel Movements 0 0 0 0 Result Diagram: 07/10/17 1055 07/10/17 1055 Objective Remarks GENERAL: NAD, A&Ox3 HEAD: Normocephalic. NECK: Supple, trachea midline. No lymphadenopathy. EYES: No scleral icterus. No injection or drainage. CARDIOVASCULAR: Regular rate and rhythm without murmurs, gallops, or rubs. RESPIRATORY: Breath sounds equal bilaterally. No accessory muscle use. GASTROINTESTINAL: Abdomen soft, non-tender, nondistended. MUSCULOSKELETAL: No cyanosis, or edema. SKIN: Warm and dry. NEURO: No focal neurological deficitis. A/P Problem List: (1) EDITH (acute kidney injury) ICD Code: N17.9 - Acute kidney failure, unspecified Status: Acute (2) Diabetes ICD Code: E11.9 - Type 2 diabetes mellitus without complications Status: Chronic Assessment and Plan Assessment and Plan 56-year-old female admitted secondary to severe hyperglycemia and acute kidney injury. Insulins adjusted for uncontrolled blood sugars. HTN treatments adjusted for uncontrolled HTN. Follow blood sugars and Blood Pressures. Plan for DC possibly tomorrow if better control is present. Acute kidney injury on chronic renal disease Renal Cancer Status Post Nephrectomy Nephrectomy on 05/09/17 Renal function not yet to prior baseline Continue to monitor renal function Severe hyperglycemia Uncontrolled diabetes mellitus type 2 Improved Follow blood sugars Follow blood sugars Insulin sliding scale Diabetic diet Generalized weakness Continue physical therapy Continue occupational therapy Patient may need prison facility at discharge Hyperkalemia Resolved May be related to renal function Follow potassium levels Thrombocytopenia Anemia Both of these have improved slightly Continue to monitor CBC Hypothyroidism May be contributory Supplement initiated Will need follow-up as an outpatient DVT Prophylaxis SCDs Idris Fragoso MD Jul 10, 2017 13:26
[2017-07-10 14:24] LABS: BACTERIA, URINE OCC /hpf; BLOOD, URINE TRACE (NEG); GLUCOSE,URINE NEG (NEG); KETONE, URINE NEG (NEG); NITRITE,URINE NEG (NEG); PH, URINE 5.5 (5.0-8.5); SQUAMOUS EPITHELIAL CELL URINE <1 /hpf (0-5); URINE COLOR LIGHT-YELLOW (YELLW/STRAW)
[2017-07-10 14:26] LABS: COMMENT (UR) CULTURE INDICATED; CULTURE IF INDICATED CULTURE INDICATED
--- NOTE | 2017-07-10 18:18 | HHI.PR ---
Subjective Remarks NOT SEEN Objective Vitals Vital Signs Date Time Temp Pulse Resp B/P (MAP) Pulse Ox O2 Delivery O2 Flow Rate FiO2 07/10/17 16:00 96.6 62 19 143/75 (97) 96 07/10/17 12:00 95.8 63 19 160/72 (101) 95 07/10/17 08:00 96.7 63 19 189/81 (117) 93 07/10/17 04:00 97.2 59 21 178/81 (113) 94 07/10/17 00:41 97.8 66 18 170/90 (116) 93 07/09/17 19:00 98.8 64 19 181/78 (112) 95 I/O 07/09/17 07/09/17 07/09/17 07/10/17 07/10/17 07/10/17 07:00 15:00 23:00 07:00 15:00 23:00 Intake Total 120 ml 960 ml 480 ml 250 ml 640 ml Balance 120 ml 960 ml 480 ml 250 ml 640 ml Intake Oral 120 ml 960 ml 480 ml 250 ml 640 ml # Voids 0 2 2 1 2 # Bowel Movements 0 0 0 0 1 Result Diagram: 07/10/17 1055 07/10/17 1055 Objective Remarks GENERAL: NAD, A&Ox3 HEAD: Normocephalic. NECK: Supple, trachea midline. No lymphadenopathy. EYES: No scleral icterus. No injection or drainage. CARDIOVASCULAR: Regular rate and rhythm without murmurs, gallops, or rubs. RESPIRATORY: Breath sounds equal bilaterally. No accessory muscle use. GASTROINTESTINAL: Abdomen soft, non-tender, nondistended. MUSCULOSKELETAL: No cyanosis, or edema. SKIN: Warm and dry. NEURO: No focal neurological deficits. Procedures none A/P Problem List: (1) DM (diabetes mellitus) ICD Code: E11.9 - Type 2 diabetes mellitus without complications (2) Hyperkalemia ICD Code: E87.5 - Hyperkalemia (3) EDITH (acute kidney injury) ICD Code: N17.9 - Acute kidney failure, unspecified (4) Anemia ICD Code: D64.9 - Anemia, unspecified (5) Thrombocytopenia ICD Code: D69.6 - Thrombocytopenia, unspecified (6) S/p nephrectomy ICD Code: Z90.5 - Acquired absence of kidney Assessment and Plan 56-year-old female admitted secondary to severe hyperglycemia and acute kidney injury. Insulins adjusted for uncontrolled blood sugars. HTN treatments adjusted for uncontrolled HTN. Follow blood sugars and Blood Pressures. Plan for DC possibly tomorrow if better control is present. Acute kidney injury on chronic renal disease Renal Cancer Status Post Nephrectomy Nephrectomy on 05/09/17 Renal function not yet to prior baseline Continue to monitor renal function Severe hyperglycemia Uncontrolled diabetes mellitus type 2 Improved Follow blood sugars Insulin sliding scale Diabetic diet Generalized weakness Continue physical therapy Continue occupational therapy Patient may need longterm facility at discharge Hyperkalemia Resolved May be related to renal function Follow potassium levels Thrombocytopenia Anemia Both of these have improved slightly Continue to monitor CBC Hypothyroidism May be contributory Supplement initiated Will need follow-up outpatient Ari Sierra MD Jul 10, 2017 18:18
[2017-07-10] MEDS: PRAVASTATIN SOD 40 MG TAB PO SCH (21:14)
[2017-07-11] VITALS (12 sets, daily range): BP systolic 157–198; BP diastolic 69–88; PULSE 56–65; RESP 17–22; TEMP 96.3–98.9; O2SAT 93–97
[2017-07-11] MEDS: cloNIDine HCL 0.1 MG TAB PO PRN (01:13)
[2017-07-11] MEDS: ZOLPIDEM TARTRATE 5 MG TAB PO PRN ×2 (01:16→21:38)
[2017-07-11] MEDS: ACETAMINOPHEN/HYDROcodone 325 MG/5 MG TAB PO PRN ×2 (02:46→21:39)
[2017-07-11] MEDS: LEVOTHYROXINE SODIUM 50 MCG TAB PO SCH ×2 (05:05→07:45)
[2017-07-11 05:47] LABS: AUTOMATED NEUTROPHIL # 4.3 TH/MM3 (1.8-7.7); BASOPHIL % 0.5 % (0.0-2.0); EOSINOPHIL # 0.1 TH/MM3 (0-0.4); EOSINOPHIL % 2.2 % (0.0-4.0); HEMATOCRIT 23.1 % (35.0-46.0); HEMO FLAGS DIFF FINAL; MEAN CELL VOLUME 88.2 FL (80.0-100.0); MEAN CORPUSCULAR HGB CONC 31.8 % (32.0-36.0); MONO % 12.4 % (0.0-8.0); NEUT % 68.9 % (16.0-70.0); PLATELET COUNT 129 TH/MM3 (150-450); RED BLOOD COUNT 2.62 MIL/MM3 (4.00-5.30); RED CELL DISTRIBUTION WIDTH 14.4 % (11.6-17.2); WHITE BLOOD COUNT 6.2 TH/MM3 (4.0-11.0)
[2017-07-11 06:17] LABS: ALT (GPT) 17 U/L (10-53); ANION GAP 7 MEQ/L (5-15); AST (GOT) 12 U/L (15-37); BICARBONATE 25.3 MEQ/L (21.0-32.0); BLOOD UREA NITROGEN 68 MG/DL (7-18); CHLORIDE 108 MEQ/L (98-107); GLOMERULAR FILTRATION RATE 16 ML/MIN (>89); POTASSIUM 4.6 MEQ/L (3.5-5.1); SODIUM (NA) 140 MEQ/L (136-145)
[2017-07-11 06:19] LABS: ALKALINE PHOSPHATASE 90 U/L (45-117); TOTAL BILIRUBIN ADULT 0.2 MG/DL (0.2-1.0)
[2017-07-11] MEDS: INSULIN ASPART SUPPLEMENTAL SCALE SQ SCH ×4 (07:42→21:40)
[2017-07-11] MEDS: INSULIN DETEMIR 100 UNITS/ML VIAL SQ SCH ×2 (07:43→21:41)
[2017-07-11] MEDS: SERTRALINE HCL 100 MG TAB PO SCH (07:44)
[2017-07-11] MEDS: predniSONE 5 MG TAB PO SCH (07:45)
[2017-07-11] MEDS: amLODIPine BESYLATE 5 MG TAB PO SCH (07:45)
[2017-07-11] MEDS: HYDROCHLOROTHIAZIDE 25 MG TAB PO SCH (07:45)
[2017-07-11] MEDS: MYCOPHENOLATE MOFETIL 500 MG TAB PO SCH ×2 (07:45→21:39)
[2017-07-11] MEDS: DOCUSATE SODIUM 50 MG/SENNA 8.6 MG TAB PO SCH ×2 (07:45→21:39)
[2017-07-11] MEDS: METOPROLOL TARTRATE 50 MG TAB PO SCH ×2 (07:45→21:39)
[2017-07-11] MEDS: SODIUM CHLORIDE 0.9% FLUSH 10 ML FLUSH IV FLUSH SCH ×2 (07:46→21:40)
[2017-07-11] MEDS: SALMETEROL XINAFOATE 50 MCG DISKUS INH SCH ×2 (07:46→21:00)
[2017-07-11] MEDS ORDERED: SODIUM CHLOR 0.9% 250 ML INJ 250 ML IV ONE (12:00)
[2017-07-11] MEDS: FERROUS SULFATE 325 MG (65 MG ELEMENTAL IRON) TAB PO SCH ×2 (12:00→17:00)
--- NOTE | 2017-07-11 12:21 | HHI.PR ---
Subjective Remarks F/u anemia, HTN and DM. She feels weak. Hemoglobin down to 7.3 no gross bleeding. Diabetes and hypertension remained controlled. States she is followed by Dr. Rosie rubio RN, patient agrees with blood transfusion Objective Vitals Vital Signs Date Time Temp Pulse Resp B/P (MAP) Pulse Ox O2 Delivery O2 Flow Rate FiO2 07/11/17 07:40 98.0 58 18 165/74 (104) 95 07/11/17 04:40 98.1 56 17 184/77 (112) 95 07/11/17 04:00 63 07/11/17 00:48 98.5 62 17 198/77 (117) 95 07/10/17 23:45 62 07/10/17 21:14 Nasal Cannula 07/10/17 20:50 97.3 65 17 188/74 (112) 95 07/10/17 20:05 60 07/10/17 16:00 96.6 62 19 143/75 (97) 96 I/O 07/10/17 07/10/17 07/10/17 07/11/17 07/11/17 07/11/17 07:00 15:00 23:00 07:00 15:00 23:00 Intake Total 250 ml 640 ml 240 ml 240 ml Balance 250 ml 640 ml 240 ml 240 ml Intake Oral 250 ml 640 ml 240 ml 240 ml # Voids 1 2 2 3 # Bowel Movements 0 1 0 0 Result Diagram: 07/11/17 0501 07/11/17 0501 Objective Remarks GENERAL: NAD, A&Ox3. She looks pale HEAD: Normocephalic. NECK: Supple, trachea midline. No lymphadenopathy. EYES: No scleral icterus. No injection or drainage. CARDIOVASCULAR: Regular rate and rhythm without murmurs, gallops, or rubs. RESPIRATORY: Breath sounds equal bilaterally. No accessory muscle use. GASTROINTESTINAL: Abdomen soft, non-tender, nondistended. MUSCULOSKELETAL: No cyanosis, or edema. SKIN: Warm and dry. NEURO: No focal neurological deficits. Procedures none A/P Problem List: (1) DM (diabetes mellitus) ICD Code: E11.9 - Type 2 diabetes mellitus without complications (2) Hyperkalemia ICD Code: E87.5 - Hyperkalemia (3) EDITH (acute kidney injury) ICD Code: N17.9 - Acute kidney failure, unspecified (4) Anemia ICD Code: D64.9 - Anemia, unspecified (5) Thrombocytopenia ICD Code: D69.6 - Thrombocytopenia, unspecified (6) S/p nephrectomy ICD Code: Z90.5 - Acquired absence of kidney Assessment and Plan 56-year-old female admitted secondary to severe hyperglycemia and acute kidney injury. Acute kidney injury on chronic renal disease stage IV Renal transplant Renal Cancer Status Post Nephrectomy Nephrectomy on 05/09/17 Renal function not yet to prior baseline Continue to monitor renal function, avoid nephrotoxins discontinue hydrochlorothiazide. 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 Increase the Lipitor to 50 units in the morning and start 4 units at bedtime. Diabetic education Follow blood sugars Insulin sliding scale Diabetic diet Generalized weakness Continue physical therapy Continue occupational therapy Patient may need [facility] facility at discharge Hyperkalemia Resolved May be related to renal function Follow potassium levels Thrombocytopenia Anemia She is symptomatic agrees with blood transfusion. Refusing iron Continue to monitor CBC. Restart home aspirin if Hemoccult negative Hypothyroidism May be contributory Supplement initiated Will need follow-up outpatient Hypertension. Start hydralazine and continue Norvasc and Lopressor Follow-up urine culture Discharge Planning Not stable for discharge Ari Sierra MD Jul 11, 2017 12:21
[2017-07-11] MEDS: RESP: ALBUTEROL 2.5 MG/IPRATROPIUM 0.5 MG NEB (PRN) NEB (12:34)
--- NOTE | 2017-07-11 12:51 | PD.CONS ---
[facility] Service Nephrology Consult Requested By Reason for Consult Acute on chronic kidney disease Primary Care Physician No Primary Care Physician History of Present Illness This is a 56 year old admitted on the of this month with fatigue, failure to thrive, anemia and lethargy. She was in renal failure on admission, baseline creatinine around 2. She had right nephrectomy in May of this year because of malignancy. She was given IVF, creatinine has gradually improved. She is severely anemic as well. Creatinine was 3.81 on admission, it is now 3.03. Patient continues to feel weak. Wants to go to [place]. Review of Systems Constitutional: COMPLAINS OF: Fatigue, DENIES: Fever Cardiovascular: DENIES: Chest pain, Palpitations, Syncope, Dyspnea on Exertion Gastrointestinal: DENIES: Abdominal pain, Black stools Hematologic/lymphatic: DENIES: Bruising Past Family Social History Allergies: Coded Allergies: adhesive (Unverified Allergy, Severe, SILK TAPE, 07/07/17) NSAIDS (Non-Steroidal Anti-Inflamma (Verified Adverse Reaction, Severe, Nausea/Vomiting, 07/07/17) Past Medical History obesity s/p living unrelated renal transplant in 2000. s/p right nephrectomy in May 2017 DM type 2 Hypertension Hyperlipidemia CKD stage IV Reported Medications Percocet (Oxycodone-Acetaminophen) 5-325 mg Tab 1-2 Tab PO Q6H PRN Phenergan (Promethazine HCl) 25 Mg Tablet 25 Mg PO Q6H PRN Novolog Inj (Insulin Aspart) 1,000 Unit/10 Ml Vial 1-9 Units SQ ACHS Max dose at bedtime:( )units; sugars less than 70,(0)units; sugars 150-199,(1) unit; sugars 200-249,(3) units; sugars 250-299,(5) units; sugars 300-349,(7) units; sugars greater than 349,(9) units Insulin Syringe/U-100/31G X 12/20" 1 ml 31 Gauge X 516" Mis Ea .ROUTE DIRECTED Metoprolol Tartrate 50 Mg Tab 50 Mg PO BID Hydrocodone-Acetaminophen 5-325 mg Tab 1 Tab PO Q8HR PRN Levemir Inj (Insulin Detemir) 1,000 unit/ 10 ML Vial 10 Units SQ BID 30 Days Do not mix with any other Insulin. Ferosul (Ferrous Sulfate) 325 Mg (65 Mg Iron) Tablet 325 Mg PO BID@, 30 Days Senna Plus 8.6-50 mg (Sennosides-Docusate Sodium) 8.6 Mg-50 Mg Tab 1 Tab PO BID 30 Days Norvasc (Amlodipine Besylate) 5 Mg Tab 10 Mg PO DAILY Eq Nasal Hester Fast Actin (Phenylephrine HCl) 1 % Spr 1 Hester NASAL DAILY PRN Zofran Odt (Ondansetron Odt) 4 Mg Tab 4 Mg SL Q6HR PRN Zoloft (Sertraline HCl) 100 Mg Tab 200 Mg PO DAILY Flovent Hfa 10.6 GM Inh (Fluticasone Propionate) 44 Mcg/Act Inh 2 Puff INH BID Use daily at the same time. Serevent Diskus Inh (Salmeterol Xinafoate) 50 Mcg/Act Aero 50 Mcg INH BID Ventolin Hfa 18 GM Inh (Albuterol Sulfate) 90 Mcg/Act Aer 2 Puff INH Q4H PRN Calcium 500 + Vit D Caplet (Calcium Carbonate/Vitamin D3) 1 Each Tablet 1 Cap PO BIDPC 30 Days Womens Daily Formula (Multiple Vitamins W/ Minerals) 1 Tab Tab 1 Cap PO DAILY 30 Days Aspir-81 (Aspirin) 81 Mg Tabdr 81 Mg PO DAILY 30 Days Zocor (Simvastatin) 20 Mg Tab 20 Mg PO HS Pepcid (Famotidine) 20 Mg Tab 20 Mg PO BID Prednisone 5 Mg Tab 5 Mg PO DAILY 30 Days Cellcept (Mycophenolate Mofetil) 500 Mg Tab 500 Mg PO BID Neoral (Cyclosporine (Modified)) 100 Mg Cap 125 Mg PO DAILY 30 Days Ultram (Tramadol HCl) 50 Mg Tab 50 Mg PO Q6H PRN Active Ordered Medications Current Medications Medications (Trade) Dose Ordered Sig/Nadir Route Start Time Stop Time Status Last Admin (D50w (Vial) Inj) 50 ml UNSCH PRN IV PUSH 07/08/17 00:00 (Glucagon Inj) 1 mg UNSCH PRN OTHER 07/08/17 00:00 (NS Flush) 2 ml UNSCH PRN IV FLUSH 07/08/17 00:00 (NS Flush) 2 ml BID IV FLUSH 07/08/17 09:00 07/10/17 08:46 (Zofran Inj) 4 mg Q6H PRN IVP 07/08/17 00:00 (Tylenol) 650 mg Q6H PRN PO 07/08/17 00:00 ([place] 5-325 Mg) 1 tab Q4H PRN PO 07/08/17 00:00 07/11/17 02:46 (Samina-Colace) 1 tab BID PO 07/08/17 09:00 07/11/17 07:45 (Milk Of Magnesia Liq) 30 ml Q12H PRN PO 07/08/17 00:00 (Senokot) 17.2 mg Q12H PRN PO 07/08/17 00:00 (Dulcolax Supp) 10 mg DAILY PRN RECTAL 07/08/17 00:00 (Lactulose Liq) 30 ml DAILY PRN PO 07/08/17 00:00 (Proair Hfa Inh) 2 puff Q4H PRN INH 07/08/17 00:00 (Norvasc) 10 mg DAILY PO 07/08/17 09:00 07/11/17 07:45 (Ferrous Sulfate) 325 mg BID@ PO 07/08/17 12:00 07/08/17 17:12 (Lopressor) 50 mg BID PO 07/08/17 09:00 07/11/17 07:45 (Cellcept) 500 mg BID PO 07/08/17 09:00 07/11/17 07:45 (Deltasone) 5 mg DAILY PO 07/08/17 09:00 07/11/17 07:45 (Serevent Diskus Inh) 50 mcg BID INH 07/08/17 09:00 07/11/17 07:46 (Zoloft) 200 mg DAILY PO 07/08/17 09:00 07/11/17 07:44 (Pravachol) 40 mg HS PO 07/08/17 21:00 07/10/17 21:14 (NovoLOG SUPPLEMENTAL SCALE) 1 ACHS SLIDING SCALE SQ 07/08/17 08:00 07/11/17 12:02 (Neoral) 25 mg DAILY PO 07/08/17 10:00 07/11/17 07:44 (Neoral) 100 mg DAILY PO 07/08/17 10:00 07/11/17 07:43 (Synthroid) 50 mcg DAILY@0600 PO 07/09/17 09:00 07/11/17 07:45 (Catapres) 0.1 mg Q6H PRN PO 07/10/17 09:15 07/11/17 01:13 (Duoneb Neb) 1 ampule Q6HR NEB PRN NEB 07/10/17 11:15 07/11/17 12:34 (Ambien) 5 mg HS PRN PO 07/10/17 21:00 07/11/17 01:16 (Levemir Inj) 50 units DAILY SQ 07/11/17 09:00 07/11/17 07:43 (Apresoline) 25 mg Q8HR PO 07/11/17 14:00 (Levemir Inj) 4 units HS SQ 07/11/17 21:00 Sodium Chloride 250 ml @ 15 mls/hr ONCE ONCE IV 07/11/17 12:00 07/12/17 04:39 Family History reviewed, non contributory Social History no active tobacco, no ETOH. Lives with her . Physical Exam Vital Signs Vital Signs Date Time Temp Pulse Resp B/P (MAP) Pulse Ox O2 Delivery O2 Flow Rate FiO2 07/11/17 12:35 94 Nasal Cannula 2.00 07/11/17 07:40 98.0 58 18 165/74 (104) 95 07/11/17 04:40 98.1 56 17 184/77 (112) 95 07/11/17 04:00 63 07/11/17 00:48 98.5 62 17 198/77 (117) 95 07/10/17 23:45 62 07/10/17 21:14 Nasal Cannula 07/10/17 20:50 97.3 65 17 188/74 (112) 95 07/10/17 20:05 60 07/10/17 16:00 96.6 62 19 143/75 (97) 96 Physical Exam GENERAL: obese, pale appearing. Chronically ill appearing. SKIN: Warm and dry. HEAD: Normocephalic. EYES: No scleral icterus. No injection or drainage. NECK: Supple, trachea midline. No JVD or lymphadenopathy. CARDIOVASCULAR: Regular rate and rhythm without murmurs, gallops, or rubs. RESPIRATORY: Breath sounds equal bilaterally. No accessory muscle use. GASTROINTESTINAL: Abdomen soft, non-tender, nondistended. MUSCULOSKELETAL: 1 + lower extremity edema. BACK: Nontender without obvious deformity. No CVA tenderness. Laboratory Laboratory Tests Test 07/10/17 13:40 07/11/17 05:01 Urine Color LIGHT-YELLOW Urine Turbidity HAZY Urine pH 5.5 Urine Specific Seney 1.008 Urine Protein 30 Urine Glucose (UA) NEG Urine Ketones NEG Urine Occult Blood TRACE Urine Nitrite NEG Urine Bilirubin NEG Urine Urobilinogen LESS THAN 2.0 Urine Leukocyte Esterase LARGE Urine RBC 2 Urine WBC 27 Urine WBC Clumps FEW Urine Squamous Epithelial Cells <1 Urine Bacteria OCC Microscopic Urinalysis Comment CULTURE INDICATED White Blood Count 6.2 Red Blood Count 2.62 Hemoglobin 7.3 Hematocrit 23.1 Mean Corpuscular Volume 88.2 Mean Corpuscular Hemoglobin 28.0 Mean Corpuscular Hemoglobin Concent 31.8 Red Cell Distribution Width 14.4 Platelet Count 129 Mean Platelet Volume 7.9 Neutrophils (%) (Auto) 68.9 Lymphocytes (%) (Auto) 16.0 Monocytes (%) (Auto) 12.4 Eosinophils (%) (Auto) 2.2 Basophils (%) (Auto) 0.5 Neutrophils # (Auto) 4.3 Lymphocytes # (Auto) 1.0 Monocytes # (Auto) 0.8 Eosinophils # (Auto) 0.1 Basophils # (Auto) 0.0 CBC Comment DIFF FINAL Differential Comment Blood Urea Nitrogen 68 Creatinine 3.04 Random Glucose 197 Total Protein 5.6 Albumin 2.7 Calcium Level 8.1 Alkaline Phosphatase 90 Aspartate Amino Transf (AST/SGOT) 12 Alanine Aminotransferase (ALT/SGPT) 17 Total Bilirubin 0.2 Sodium Level 140 Potassium Level 4.6 Chloride Level 108 Carbon Dioxide Level 25.3 Anion Gap 7 Estimat Glomerular Filtration Rate 16 Date/Time Source Procedure Growth Status 07/10/17 13:40 Urine Clean Catch Urine Culture - Preliminary Group D Enterococcus Resulted Result Diagram: 07/11/17 0501 07/11/17 0501 Assessment and Plan Problem List: (1) History of kidney transplant ICD Codes: Z94.0 - Kidney transplant status Plan: continue immunosuppression. Change Cyclosporine dosing to 75 mg PO BID. Currently she is getting 125 mg PO daily. Earlier she was on 100 mg PO BID. Repeat Cyclosporine level in 2 days. (2) EDITH (acute kidney injury) ICD Codes: N17.9 - Acute kidney failure, unspecified Plan: may have been due to dehydration, pre-renal state. Renal function is gradually improving. Monitor urine output and renal function. Avoid nephrotoxic agents. Obtain cyclosporine level. (3) Chronic kidney disease, stage IV (severe) ICD Codes: N18.4 - Chronic kidney disease, stage 4 (severe) Plan: baseline creatinine around 2. Renal function is improving. Monitor. (4) Anemia ICD Codes: D64.9 - Anemia, unspecified Plan: rule out occult bleeding. Obtain iron studies. If BP improves, Epogen can be ordered. (5) S/p nephrectomy ICD Codes: Z90.5 - Acquired absence of kidney Plan: for renal cancer. (6) DM (diabetes mellitus) ICD Codes: E11.9 - Type 2 diabetes mellitus without complications Plan: continue insulin coverage, maintain blood glucose between 140 and 180. (7) HTN (hypertension) ICD Codes: I10 - Essential (primary) hypertension Status: Chronic Plan: BP is high. Hydralazine added. Assessment and Plan Thanks for the consult. Discussed with Dr. Sierra. We will follow. Antonio Velez MD Jul 11, 2017 12:50
[2017-07-11] MEDS: hydrALAZINE HCL 25 MG TAB PO SCH ×2 (15:47→21:39)
[2017-07-11] MEDS: PRAVASTATIN SOD 40 MG TAB PO SCH (21:39)
[2017-07-12] VITALS (9 sets, daily range): BP systolic 168–195; BP diastolic 66–94; PULSE 58–66; RESP 19–22; TEMP 97.4–99.3; O2SAT 92–95
[2017-07-12] MEDS: RESP: ALBUTEROL 2.5 MG/IPRATROPIUM 0.5 MG NEB (PRN) NEB ×3 (04:05→21:29)
[2017-07-12] MEDS: ACETAMINOPHEN/HYDROcodone 325 MG/5 MG TAB PO PRN ×4 (04:05→21:10)
[2017-07-12] MEDS: hydrALAZINE HCL 25 MG TAB PO SCH ×3 (06:13→21:10)
--- NOTE | 2017-07-12 08:16 | HHI.NPPN ---
Subjective Interval History patient continues to complain of weakness. Received blood transfusion yesterday. Labs are pending today. BP is high. Review of Systems General Constitutional: Fatigue Neuro Neuro: Headache Objective Data Data Vital Signs Date Time Temp Pulse Resp B/P (MAP) Pulse Ox O2 Delivery O2 Flow Rate FiO2 07/12/17 04:09 93 Nasal Cannula 2.00 07/12/17 04:00 98.2 62 22 186/80 (115) 95 07/12/17 00:00 99.3 62 22 168/74 (105) 92 07/11/17 21:10 98.7 60 22 184/88 97 07/11/17 20:24 65 07/11/17 20:00 Nasal Cannula 2.00 07/11/17 20:00 98.8 60 22 182/80 (114) 93 07/11/17 18:07 96.3 62 18 183/83 07/11/17 17:39 96.6 59 18 157/72 94 07/11/17 16:00 98.5 63 18 197/84 (121) 95 07/11/17 12:35 94 Nasal Cannula 2.00 07/11/17 12:00 98.9 60 18 159/69 (99) 93 -: 07/11/17 0501 07/11/17 0501 Physical Exam General Appearance: No Acute Distress, Comfortable Neck Neck Exam: Neck Supple Pulmonary Resp Exam: Clear Bilaterally, Breath Sounds Equal Cardiology CV Exam: Regular, Normal Sinus Rhythm Gastrointestinal/Abdomen GI Exam: Soft, Non-Tender Extremeties Extremities Exam: Trace Edema Assessment/Plan Problem List: (1) History of kidney transplant ICD Codes: Z94.0 - Kidney transplant status Plan: continue immunosuppression. Changed Cyclosporine dosing to 75 mg PO BID. Currently she is getting 125 mg PO daily. Earlier she was on 100 mg PO BID. Obtain Cyclosporine level tomorrow. (2) EDITH (acute kidney injury) ICD Codes: N17.9 - Acute kidney failure, unspecified Plan: may have been due to dehydration, pre-renal state. Renal function had been improving. Monitor urine output and renal function. Avoid nephrotoxic agents. Obtain cyclosporine level. (3) Chronic kidney disease, stage IV (severe) ICD Codes: N18.4 - Chronic kidney disease, stage 4 (severe) Plan: baseline creatinine around 2. Renal function is improving. Monitor. (4) Anemia ICD Codes: D64.9 - Anemia, unspecified Plan: rule out occult bleeding. Iron studies ordered, not back. BP is high, will defer Epogen. Received blood transfusion. (5) S/p nephrectomy ICD Codes: Z90.5 - Acquired absence of kidney Plan: for renal cancer. (6) DM (diabetes mellitus) ICD Codes: E11.9 - Type 2 diabetes mellitus without complications Plan: continue insulin coverage, maintain blood glucose between 140 and 180. (7) HTN (hypertension) ICD Codes: I10 - Essential (primary) hypertension Status: Chronic Plan: BP is high. Hydralazine added. I will restart HCTZ as there is some evidence that thiazide diuretics are useful in controlling BP in patients that are on calcineurin inhibitors. Dr. Phelan will be covering from tomorrow. Will be back on . Antonio Velez MD Jul 12, 2017 08:16
[2017-07-12 08:49] LABS: AUTOMATED NEUTROPHIL # 5.5 TH/MM3 (1.8-7.7); BASOPHIL # 0.1 TH/MM3 (0-0.2); BASOPHIL % 0.9 % (0.0-2.0); EOSINOPHIL # 0.2 TH/MM3 (0-0.4); EOSINOPHIL % 2.4 % (0.0-4.0); HEMATOCRIT 25.8 % (35.0-46.0); HEMO FLAGS DIFF FINAL; LYMPH % 15.3 % (9.0-44.0); LYMPHOCYTE # 1.2 TH/MM3 (1.0-4.8); MEAN CORPUSCULAR HEMOGLOBIN 28.1 PG (27.0-34.0); MEAN CORPUSCULAR HGB CONC 31.9 % (32.0-36.0); MONO % 12.4 % (0.0-8.0); PLATELET COUNT 135 TH/MM3 (150-450); RED BLOOD COUNT 2.93 MIL/MM3 (4.00-5.30); RED CELL DISTRIBUTION WIDTH 14.7 % (11.6-17.2)
[2017-07-12] MEDS: SALMETEROL XINAFOATE 50 MCG DISKUS INH SCH ×2 (09:00→21:11)
[2017-07-12 09:14] LABS: ANION GAP 7 MEQ/L (5-15); BICARBONATE 25.7 MEQ/L (21.0-32.0); BLOOD UREA NITROGEN 65 MG/DL (7-18); CHLORIDE 108 MEQ/L (98-107); GLOMERULAR FILTRATION RATE 17 ML/MIN (>89); MAGNESIUM 2.5 MG/DL (1.5-2.5); POTASSIUM 4.7 MEQ/L (3.5-5.1); SODIUM (NA) 141 MEQ/L (136-145)
[2017-07-12 09:15] LABS: TRANSFERRIN IRON PROFILE 156 MG/DL (200-360)
[2017-07-12] MEDS: MYCOPHENOLATE MOFETIL 500 MG TAB PO SCH ×2 (09:50→21:10)
[2017-07-12] MEDS: SERTRALINE HCL 100 MG TAB PO SCH (09:50)
[2017-07-12] MEDS: amLODIPine BESYLATE 5 MG TAB PO SCH (09:50)
[2017-07-12] MEDS: HYDROCHLOROTHIAZIDE 25 MG TAB PO SCH (09:51)
[2017-07-12] MEDS: METOPROLOL TARTRATE 50 MG TAB PO SCH ×2 (09:51→21:10)
[2017-07-12] MEDS: DOCUSATE SODIUM 50 MG/SENNA 8.6 MG TAB PO SCH ×2 (09:51→21:12)
[2017-07-12] MEDS: predniSONE 5 MG TAB PO SCH (09:51)
[2017-07-12] MEDS: INSULIN DETEMIR 100 UNITS/ML VIAL SQ SCH ×2 (09:52→21:05)
[2017-07-12] MEDS: INSULIN ASPART SUPPLEMENTAL SCALE SQ SCH ×4 (09:52→21:05)
[2017-07-12] MEDS: SODIUM CHLORIDE 0.9% FLUSH 10 ML FLUSH IV FLUSH SCH ×2 (09:53→21:10)
[2017-07-12] MEDS: FERROUS SULFATE 325 MG (65 MG ELEMENTAL IRON) TAB PO SCH ×2 (10:34→17:00)
--- NOTE | 2017-07-12 10:35 | HHI.PR ---
Subjective Remarks Follow-up diabetes mellitus and hypertension. Improving hyperglycemia. BP remains elevated at the Court eyes and restarted by nephrology. Complained of mild right sided headache associated with nausea and vomiting 1. Also with left proximal arm pain states she was using her left upper extremity to pull herself up yesterday. Denies trauma Objective Vitals Vital Signs Date Time Temp Pulse Resp B/P (MAP) Pulse Ox O2 Delivery O2 Flow Rate FiO2 07/12/17 08:00 98.4 58 20 189/70 (109) 94 07/12/17 04:09 93 Nasal Cannula 2.00 07/12/17 04:00 98.2 62 22 186/80 (115) 95 07/12/17 00:00 99.3 62 22 168/74 (105) 92 07/11/17 21:10 98.7 60 22 184/88 97 07/11/17 20:24 65 07/11/17 20:00 Nasal Cannula 2.00 07/11/17 20:00 98.8 60 22 182/80 (114) 93 07/11/17 18:07 96.3 62 18 183/83 07/11/17 17:39 96.6 59 18 157/72 94 07/11/17 16:00 98.5 63 18 197/84 (121) 95 07/11/17 12:35 94 Nasal Cannula 2.00 07/11/17 12:00 98.9 60 18 159/69 (99) 93 I/O 07/11/17 07/11/17 07/11/17 07/12/17 07/12/17 07/12/17 07:00 15:00 23:00 07:00 15:00 23:00 Intake Total 240 ml 960 ml 400 ml 300 ml Output Total 400 ml Balance 240 ml 960 ml 400 ml -100 ml Intake Oral 240 ml 960 ml 300 ml Packed Cells 400 ml Output Urine Total 400 ml # Voids 3 2 # Bowel Movements 0 0 0 Result Diagram: 07/12/1782107/12/17821 Objective Remarks GENERAL: NAD, A&Ox3. HEAD: Normocephalic. NECK: Supple, trachea midline. No lymphadenopathy. EYES: No scleral icterus. No injection or drainage. CARDIOVASCULAR: Regular rate and rhythm without murmurs, gallops, or rubs. RESPIRATORY: Breath sounds equal bilaterally. No accessory muscle use. GASTROINTESTINAL: Abdomen soft, non-tender, nondistended. MUSCULOSKELETAL: No cyanosis, or edema. Tender left proximal arm with bruise. No joint tenderness or swelling. SKIN: Warm and dry. NEURO: No focal neurological deficits. Procedures none A/P Problem List: (1) DM (diabetes mellitus) ICD Code: E11.9 - Type 2 diabetes mellitus without complications (2) Hyperkalemia ICD Code: E87.5 - Hyperkalemia (3) EDITH (acute kidney injury) ICD Code: N17.9 - Acute kidney failure, unspecified (4) Anemia ICD Code: D64.9 - Anemia, unspecified (5) Thrombocytopenia ICD Code: D69.6 - Thrombocytopenia, unspecified (6) S/p nephrectomy ICD Code: Z90.5 - Acquired absence of kidney Assessment and Plan 56-year-old female admitted secondary to severe hyperglycemia and acute kidney injury. Acute kidney injury on chronic renal disease stage IV Renal transplant Renal Cancer Status Post Nephrectomy Nephrectomy on 05/09/17 Renal function not yet to prior baseline but improving Continue to monitor renal function, avoid nephrotoxins. 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 Continue that. 50 units in the morning and 4 units at bedtime. Consider preprandial insulin Diabetic education Follow blood sugars Insulin sliding scale Diabetic diet Generalized weakness Continue physical therapy Continue occupational therapy Patient may need jail facility at discharge Hyperkalemia Resolved May be related to renal function Follow potassium levels Left arm pain likely strain. Warm compress, pain management and physical therapy Thrombocytopenia Anemia Improving status post blood transfusion. Refusing iron Continue to monitor CBC. Restart home aspirin if Hemoccult negative Hypothyroidism May be contributory Supplement initiated Will need follow-up outpatient Hypertension. Controlled. Hydrochlorothiazide restarted. Continue hydralazine , Norvasc and Lopressor group D enterococcus UTI. Patient has dysuria. Start empiric doxycycline follow-up cultures DVT proph with SCD Discharge Planning Not stable for discharge Ari Sierra MD Jul 12, 2017 10:35
[2017-07-12] MEDS: DOXYCYCLINE HYCLATE 100 MG CAP PO SCH ×2 (12:04→21:10)
[2017-07-12] MEDS: cloNIDine HCL 0.1 MG TAB PO PRN (12:04)
[2017-07-12] MEDS: PRAVASTATIN SOD 40 MG TAB PO SCH (21:10)
[2017-07-12] MEDS: ZOLPIDEM TARTRATE 5 MG TAB PO PRN (21:10)
[2017-07-13] VITALS: BP 183/79; PULSE 59; PULSE 68; RESP 20; TEMP 98.1; O2SAT 96
[2017-07-13] MEDS: ACETAMINOPHEN/HYDROcodone 325 MG/5 MG TAB PO PRN ×2 (03:47→10:07)
[2017-07-13 04:00] VITALS: BP 172/71; PULSE 60; RESP 20; TEMP 98.8; O2SAT 97
[2017-07-13] MEDS: LEVOTHYROXINE SODIUM 50 MCG TAB PO SCH (04:53)
[2017-07-13] MEDS: hydrALAZINE HCL 25 MG TAB PO SCH (04:53)
[2017-07-13 08:00] VITALS: BP 150/63; PULSE 56; RESP 22; TEMP 98.6; O2SAT 94
[2017-07-13] MEDS: INSULIN ASPART SUPPLEMENTAL SCALE SQ SCH ×2 (08:00→12:58)
[2017-07-13 08:43] LABS: BICARBONATE 22.4 MEQ/L (21.0-32.0); POTASSIUM 4.6 MEQ/L (3.5-5.1)
[2017-07-13] MEDS: DOCUSATE SODIUM 50 MG/SENNA 8.6 MG TAB PO SCH (09:00)
[2017-07-13] MEDS: SALMETEROL XINAFOATE 50 MCG DISKUS INH SCH (09:00)
[2017-07-13] MEDS: DOXYCYCLINE HYCLATE 100 MG CAP PO SCH (10:05)
[2017-07-13] MEDS: amLODIPine BESYLATE 5 MG TAB PO SCH (10:06)
[2017-07-13] MEDS: METOPROLOL TARTRATE 50 MG TAB PO SCH (10:06)
[2017-07-13] MEDS: SERTRALINE HCL 100 MG TAB PO SCH (10:07)
[2017-07-13] MEDS: predniSONE 5 MG TAB PO SCH (10:07)
[2017-07-13] MEDS: HYDROCHLOROTHIAZIDE 25 MG TAB PO SCH (10:07)
[2017-07-13] MEDS: INSULIN DETEMIR 100 UNITS/ML VIAL SQ SCH (10:07)
[2017-07-13] MEDS: SODIUM CHLORIDE 0.9% FLUSH 10 ML FLUSH IV FLUSH SCH (10:56)
[2017-07-13] MEDS: MYCOPHENOLATE MOFETIL 500 MG TAB PO SCH (10:56)
--- NOTE | 2017-07-13 11:06 | HHI.PR ---
Subjective Remarks Follow-up acute kidney injury, hypertension and diabetes mellitus. She is feeling better improving arm pain. Patient advised she can be discharged to rehabilitation which she refused. She wants to go home instead. [facility] declined to take her. Discussed with RN and case management Objective Vitals Vital Signs Date Time Temp Pulse Resp B/P (MAP) Pulse Ox O2 Delivery O2 Flow Rate FiO2 07/13/17 08:00 98.6 56 22 150/63 (92) 94 07/13/17 04:00 98.8 60 20 172/71 (104) 97 07/13/17 00:00 59 07/13/17 00:00 98.1 68 20 183/79 (113) 96 07/12/17 20:00 60 07/12/17 19:38 99.1 61 19 170/66 (100) 93 07/12/17 17:38 14 07/12/17 16:00 97.4 59 20 178/85 (116) 94 07/12/17 14:59 175/78 (110) 07/12/17 11:54 97.7 66 21 195/94 (127) 94 I/O 07/12/17 07/12/17 07/12/17 07/13/17 07/13/17 07/13/17 07:00 15:00 23:00 07:00 15:00 23:00 Intake Total 300 ml 500 ml 240 ml 300 ml Output Total 400 ml 500 ml Balance -100 ml 500 ml 240 ml -200 ml Intake Oral 300 ml 500 ml 240 ml 300 ml Output Urine Total 400 ml 500 ml # Voids 4 5 # Bowel Movements 0 1 0 0 Result Diagram: 07/12/17 0822 07/13/17 0739 Objective Remarks GENERAL: NAD, A&Ox3. HEAD: Normocephalic. NECK: Supple, trachea midline. No lymphadenopathy. EYES: No scleral icterus. No injection or drainage. CARDIOVASCULAR: Regular rate and rhythm without murmurs, gallops, or rubs. RESPIRATORY: Breath sounds equal bilaterally. No accessory muscle use. GASTROINTESTINAL: Abdomen soft, non-tender, nondistended. MUSCULOSKELETAL: No cyanosis, or edema. Tender left proximal arm with bruise. No joint tenderness or swelling. Improving range of motion SKIN: Warm and dry. NEURO: No focal neurological deficits. Procedures none A/P Problem List: (1) DM (diabetes mellitus) ICD Code: E11.9 - Type 2 diabetes mellitus without complications (2) Hyperkalemia ICD Code: E87.5 - Hyperkalemia (3) EDITH (acute kidney injury) ICD Code: N17.9 - Acute kidney failure, unspecified (4) Anemia ICD Code: D64.9 - Anemia, unspecified (5) Thrombocytopenia ICD Code: D69.6 - Thrombocytopenia, unspecified (6) S/p nephrectomy ICD Code: Z90.5 - Acquired absence of kidney Assessment and Plan 56-year-old female admitted secondary to severe hyperglycemia and acute kidney injury. Acute kidney injury on chronic renal disease stage IV Renal transplant Renal Cancer Status Post Nephrectomy Nephrectomy on 05/09/17 Renal function not yet to prior baseline but improving. Follow-up cyclosporine level Continue to monitor renal function, avoid nephrotoxins. 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 Continue Levemir 50 units in the morning and 4 units at bedtime. Start NovoLog 4 units before lunch and dinner. Diabetic education Follow blood sugars Insulin sliding scale Diabetic diet Generalized weakness Continue physical therapy Continue occupational therapy Patient needs jail facility at discharge which patient is refusing Hyperkalemia Resolved May be related to renal function Follow potassium levels Left arm pain likely strain. Improving. Warm compress, pain management and physical therapy Thrombocytopenia Anemia Improving status post blood transfusion. Refusing iron Continue to monitor CBC. Restart home aspirin if Hemoccult negative Hypothyroidism May be contributory Supplement initiated Will need follow-up outpatient Hypertension. Suboptimal control increase hydralazine. Continue hydrochlorothiazide, Norvasc and Lopressor group D enterococcus UTI. Patient has dysuria. Continue empiric doxycycline follow-up cultures DVT proph with SCD and subcutaneous heparin Discharge Planning Discharge to rehabilitation. She is refusing SNF will discharge to home with home care PT, VN and Ari Mei MD Jul 13, 2017 11:06
[2017-07-13] MEDS: FERROUS SULFATE 325 MG (65 MG ELEMENTAL IRON) TAB PO SCH (11:16)
[2017-07-13] MEDS ORDERED: HYDR-3799 PO (11:17)
[2017-07-13] MEDS ORDERED: LEVEMIR SQ ×2 (11:17)
[2017-07-13] MEDS ORDERED: DOXY100C PO (11:17)
[2017-07-13] MEDS ORDERED: NOVOLOGP2 SQ ×2 (11:17)
[2017-07-13] MEDS ORDERED: NEOR25 PO (11:17)
[2017-07-13] MEDS ORDERED: LEVO.05 PO (11:17)
[2017-07-13] MEDS ORDERED: HYDR25TA5 PO (11:17)
--- NOTE | 2017-07-13 11:21 | HHI.DCPOC ---
Discharge Care Plan Diagnosis: (1) Status post nephrectomy (2) UTI (urinary tract infection) Your Health Problems Are: Difficulty with ADL Exercise Tolerance Goals to Promote Your Health * To prevent worsening of your condition and complications * To maintain your health at the optimal level Directions to Meet Your Goals Take your medications as prescribed Follow your dietary instruction Follow activity as directed Keep your appointments as scheduled Take your immunizations and boosters as scheduled If your symptoms worsen call your PCP, if no PCP go to Urgent Care Center or Emergency Room Smoking is Dangerous to Your Health. Avoid second hand smoke Call the 24-hour hour crisis hotline for domestic abuse at Ari Sierra MD Jul 13, 2017 11:21
--- NOTE | 2017-07-13 11:24 | HHI.FF ---
Face to Face Verification Diagnosis: (1) EDITH (acute kidney injury) (2) History of kidney transplant Physical Therapy Order: Evaluate and Treat, Improve ambulation, Strength and gait training Home Health Nursing Order: Medical education Signs/symptoms of disease process Diabetic education Medication education-adverse effect Nursing assessment with vital signs Home Health Aide Order: To Assist In: Bathing and personal care, men's designer and meal prep Certified Composites Technician Order: To Evaluate: Living conditions/environment, Support services Order: To Provide: Long range planning, Community services I have seen patient Cinthya Dewey on 07/13/17. My clinical findings support the need for the requested home health care services because: Ltd mobility - disease progression I certify that my clinical findings support that this patient is homebound because: Unsteady gait/balance Unsafe to leave home unassisted Ari Sierra MD Jul 13, 2017 11:23
[2017-07-13 12:00] VITALS: BP 149/69; PULSE 57; RESP 22; TEMP 97.8; O2SAT 96
[2017-07-13] MEDS ORDERED: INSULIN ASPART 1,000 UNITS/10 ML VIAL SQ SCH ×2 (12:00→17:00)
--- NOTE | 2017-07-13 13:17 | HHI.NPPN ---
Review of Systems General Constitutional: Fatigue Neuro Neuro: Headache Objective Data Data Vital Signs Date Time Temp Pulse Resp B/P (MAP) Pulse Ox O2 Delivery O2 Flow Rate FiO2 07/13/17 11:07 16 07/13/17 08:00 98.6 56 22 150/63 (92) 94 07/13/17 04:00 98.8 60 20 172/71 (104) 97 07/13/17 00:00 59 07/13/17 00:00 98.1 68 20 183/79 (113) 96 07/12/17 20:00 60 07/12/17 19:38 99.1 61 19 170/66 (100) 93 07/12/17 16:00 97.4 59 20 178/85 (116) 94 07/12/17 14:59 175/78 (110) -: 07/12/17 0822 07/13/17 0739 Physical Exam General Appearance: No Acute Distress, Comfortable Neck Neck Exam: Neck Supple Pulmonary Resp Exam: Clear Bilaterally, Breath Sounds Equal Cardiology CV Exam: Regular, Normal Sinus Rhythm Gastrointestinal/Abdomen GI Exam: Soft, Non-Tender Extremeties Extremities Exam: Trace Edema Assessment/Plan Problem List: (1) History of kidney transplant ICD Codes: Z94.0 - Kidney transplant status Plan: continue immunosuppression. Changed Cyclosporine dosing to 75 mg PO BID. .follow Cyclosporine level Cr declined E faecalis UTI on Doxycycline (2) EDITH (acute kidney injury) ICD Codes: N17.9 - Acute kidney failure, unspecified Plan: may have been due to dehydration, pre-renal state. Renal function had been improving. Monitor urine output and renal function. Avoid nephrotoxic agents. Obtain cyclosporine level. (3) Chronic kidney disease, stage IV (severe) ICD Codes: N18.4 - Chronic kidney disease, stage 4 (severe) Plan: baseline creatinine around 2. Renal function is improving. Monitor. (4) Anemia ICD Codes: D64.9 - Anemia, unspecified Plan: rule out occult bleeding. Iron studies ordered, not back. BP is high, will defer Epogen. Received blood transfusion. (5) S/p nephrectomy ICD Codes: Z90.5 - Acquired absence of kidney Plan: for renal cancer. (6) DM (diabetes mellitus) ICD Codes: E11.9 - Type 2 diabetes mellitus without complications Plan: continue insulin coverage, maintain blood glucose between 140 and 180. (7) HTN (hypertension) ICD Codes: I10 - Essential (primary) hypertension Status: Chronic Plan: BP is high. Hydralazine added. I will restart HCTZ as there is some evidence that thiazide diuretics are useful in controlling BP in patients that are on calcineurin inhibitors. Dr. Phelan will be covering from tomorrow. Will be back on . Misha Phelan MD Jul 13, 2017 13:16
[2017-07-13] MEDS ORDERED: hydrALAZINE HCL 25 MG TAB PO SCH (14:00)
[2017-07-13] MEDS ORDERED: HEPARIN SODIUM - SQ 10,000 UNITS/ML VIAL SQ SCH (21:00)
== END 2017-07-13 14:35 | disposition home health service (06) | DRG 683 ==
LOC: NEPE 20:47 → N06B 23:55
PROVIDERS: ADMIT Internal Medicine; ATTEND Internal Medicine
PROC: 30233N1 Transfusion of Nonautologous Red Blood Cells into Peripheral Vein, Percutaneous Approach (ICD-10-PCS; principal; 2017-07-11)
DX: N17.9 Acute kidney failure, unspecified (principal); Z94.0 Kidney transplant status; E11.22 Type 2 diabetes mellitus with diabetic chronic kidney disease; E11.65 Type 2 diabetes mellitus with hyperglycemia; D69.6 Thrombocytopenia, unspecified; Z68.42 Body mass index [BMI] 45.0-49.9, adult; N39.0 Urinary tract infection, site not specified; N18.4 Chronic kidney disease, stage 4 (severe); E87.5 Hyperkalemia; E66.01 Morbid (severe) obesity due to excess calories; I12.9 Hypertensive chronic kidney disease with stage 1 through stage 4 chronic kidney disease, or unspecified chronic kidney disease; J44.9 Chronic obstructive pulmonary disease, unspecified; E78.5 Hyperlipidemia, unspecified; E86.0 Dehydration; D63.1 Anemia in chronic kidney disease; E03.9 Hypothyroidism, unspecified; B95.2 Enterococcus as the cause of diseases classified elsewhere; M19.90 Unspecified osteoarthritis, unspecified site; F32.9 Major depressive disorder, single episode, unspecified; Z79.4 Long term (current) use of insulin; Z85.528 Personal history of other malignant neoplasm of kidney
CPT/HCPCS: 36430; 80048; 80053; 80069; 80158; 81001; 82010; 82024; 82533; 82728; 82800; 82948; 83540; 83550; 83690; 83735; 84436; 84443; 84481; 85025; 85027; 86850; 86900; 86901; 86920; 87077; 87086; 87186; 94640; 94664; 96361; 96374; 96375; J1815; J7030; J7502; J7512; J7515; J7517; P9016

== ENCOUNTER 2017-07-19 15:14 | Inpatient (IN) | payer MEDICARE, MEDICAID ==
[~2017-07-19] VITALS: Ht 182.9 cm; Wt 163.6 kg
[~2017-07-19 15:14] MED LIST changes: +DOXY100C PO; -EQ N NASAL; +HYDR-3799 PO; +HYDR25TA5 PO; -INSULIN REGULAR (IV INFUSION) 100 UNITS in SODIUM CHLORIDE 0.9% INJ 99 ML IV PRN; +LEVO.05 PO; -NEOR100 PO; +NEOR25 PO; -PERC5TAB12 PO; -TRAM50 PO
[2017-07-19 15:33] VITALS: BP 146/67; PULSE 67; RESP 19; TEMP 97.9; O2SAT 93
--- NOTE | 2017-07-19 15:55 | PD ---
HPI Chief Complaint: Abdominal Pain Time Seen by Provider: 15:26 Travel History International Travel<30 days: No Contact w/Intl Traveler<30days: No Traveled to known affect area: No History of Present Illness HPI 56yo F with PMH of DM, CKD s/p renal transplant, right nephrectomy 05/2017 presents to the ED with c/o persistent vomiting despite having phenergen and zofran at home. Pt said she has generalized abdominal pain today. Also with midsternal chest pain and she cannot tell me when it started. Nonradiating. Associated with some SOB. Pt uses 2-3 L nasal cannula at home. Said history of asthma. Denies any fever, dysuria, hematuria, focal weakness or numbness. Pt is bed bound and has electric chair. Said she has lower extremity edema since she was discharge from hospital. Pt was admitted 07/07/17-07/13/17 for hyperglycemia and discharge with #30 percocet and #40 tramadol but she said she didnt take any pain medication. PFSH Past Medical History Arthritis: Yes Asthma: Yes Autoimmune Disease: No Blood Disorders: No Anxiety: Yes Depression: Yes Heart Rhythm Problems: No Cancer: Yes (RENAL CELL CARCINOMA) Cardiovascular Problems: Yes High Cholesterol: Yes Chemotherapy: No Chest Pain: No Congestive Heart Failure: No COPD: Yes Diabetes: Yes Patient Takes Glucophage: No Diminished Hearing: No Endocrine: Yes (Diabetes) Gastrointestinal Disorders: Yes (Nausea) GERD: No Glaucoma: No Genitourinary: Yes Hepatitis: No Hiatal Hernia: No Hypertension: Yes Immune Disorder: Yes (On anti-rejection medication for kidney transplantation) Kidney Stones: No Musculoskeletal: Yes (Charcot fractures in feet) Neurologic: No Psychiatric: Yes Reproductive: Yes Respiratory: Yes Myocardial Infarction: No Radiation Therapy: No Renal Failure: Yes Sickle Cell Disease: No Sleep Apnea: Yes (NO CPAP) Thyroid Disease: No Ulcer: No Tetanus Vaccination: Unknown : 2 Para: 1 Miscarriage: 1 Past Surgical History Abdominal Surgery: Yes (Nephrectomy and with son) AICD: No Arteriovenous Shunt: No Body Medical Devices: kidney Cardiac Surgery: No Section: Yes Cholecystectomy: Yes Ear Surgery: No Endocrine Surgery: No Genitourinary Surgery: Yes (R NEPHRECTOMY) Gynecologic Surgery: Yes ( with son) Insulin Pump: No Joint Replacement: No Neurologic Surgery: Yes (Fused lumbar spine) Oral Surgery: No Pacemaker: No Thoracic Surgery: No Tonsillectomy: Yes Other Surgery: Yes (KIDNEY TRANSPLANT X 2 2001 HUSBANDS; REMOVAL 2017) Social History Alcohol Use: Yes (SOCIALLY) Tobacco Use: No Substance Use: No Allergies-Medications (Allergen,Severity, Reaction): Coded Allergies: adhesive (Unverified Allergy, Severe, SILK TAPE, 07/07/17) NSAIDS (Non-Steroidal Anti-Inflamma (Verified Adverse Reaction, Severe, Nausea/Vomiting, 07/07/17) Reported Meds & Prescriptions Reported Meds & Active Scripts Active Neoral (Cyclosporine (Modified)) 25 Mg Cap 75 Mg PO BID@06,18 Synthroid (Levothyroxine Sodium) 50 Mcg Tab 50 Mcg PO DAILY@0600 Levemir Inj (Insulin Detemir) 1,000 unit/ 10 ML Vial 4 Units SQ HS Do not mix with any other Insulin. Novolog Inj (Insulin Aspart) 1,000 Unit/10 Ml Vial 4 Units SQ DAILY@1200 Novolog Inj (Insulin Aspart) 1,000 Unit/10 Ml Vial 4 Units SQ DAILY@17 Hydrochlorothiazide 25 Mg Tab 25 Mg PO DAILY Hydralazine HCl 25 Mg Tablet 50 Mg PO Q8HR Doxycycline Hyclate 100 Mg Cap 100 Mg PO BID Levemir Inj (Insulin Detemir) 1,000 unit/ 10 ML Vial 50 Units SQ DAILYAC 30 Days Do not mix with any other Insulin. Phenergan (Promethazine HCl) 25 Mg Tablet 25 Mg PO Q6H PRN Novolog Inj (Insulin Aspart) 1,000 Unit/10 Ml Vial 1-9 Units SQ ACHS Max dose at bedtime:( )units; sugars less than 70,(0)units; sugars 150-199,(1) unit; sugars 200-249,(3) units; sugars 250-299,(5) units; sugars 300-349,(7) units; sugars greater than 349,(9) units Insulin Syringe/U-100/31G X 12/20" 1 ml 31 Gauge X 12/20" Mis Ea .ROUTE DIRECTED Metoprolol Tartrate 50 Mg Tab 50 Mg PO BID Hydrocodone-Acetaminophen 5-325 mg Tab 1 Tab PO Q8HR PRN Ferosul (Ferrous Sulfate) 325 Mg (65 Mg Iron) Tablet 325 Mg PO BID@,17 30 Days Senna Plus 8.6-50 mg (Sennosides-Docusate Sodium) 8.6 Mg-50 Mg Tab 1 Tab PO BID 30 Days Norvasc (Amlodipine Besylate) 5 Mg Tab 10 Mg PO DAILY Zofran Odt (Ondansetron Odt) 4 Mg Tab 4 Mg SL Q6HR PRN Zoloft (Sertraline HCl) 100 Mg Tab 200 Mg PO DAILY Flovent Hfa 10.6 GM Inh (Fluticasone Propionate) 44 Mcg/Act Inh 2 Puff INH BID Use daily at the same time. Serevent Diskus Inh (Salmeterol Xinafoate) 50 Mcg/Act Aero 50 Mcg INH BID Ventolin Hfa 18 GM Inh (Albuterol Sulfate) 90 Mcg/Act Aer 2 Puff INH Q4H PRN Calcium 500 + Vit D Caplet (Calcium Carbonate/Vitamin D3) 1 Each Tablet 1 Cap PO BIDPC 30 Days Womens Daily Formula (Multiple Vitamins W/ Minerals) 1 Tab Tab 1 Cap PO DAILY 30 Days Aspir-81 (Aspirin) 81 Mg Tabdr 81 Mg PO DAILY 30 Days Zocor (Simvastatin) 20 Mg Tab 20 Mg PO HS Pepcid (Famotidine) 20 Mg Tab 20 Mg PO BID Prednisone 5 Mg Tab 5 Mg PO DAILY 30 Days Cellcept (Mycophenolate Mofetil) 500 Mg Tab 500 Mg PO BID Review of Systems Except as stated in HPI: all other systems reviewed are Neg Physical Exam Narrative GENERAL: 56yo F in mild distress. SKIN: Focused skin assessment warm/dry. HEAD: Atraumatic. Normocephalic. EYES: Pupils equal and round. No scleral icterus. No injection or drainage. ENT: No nasal bleeding or discharge. Mucous membranes pink and moist. NECK: Trachea midline. No JVD. CARDIOVASCULAR: Regular rate and rhythm. No murmur appreciated. RESPIRATORY: No accessory muscle use. Clear to auscultation. Breath sounds equal bilaterally. GASTROINTESTINAL: Abdomen soft, mild periumbilical ttp. No rebound tenderness or guarding. morbid obesity. MUSCULOSKELETAL: No obvious deformities. No clubbing. No cyanosis. +Bilateral lower extremity edema. Clear blisters on right. NEUROLOGICAL: Awake and alert. No obvious cranial nerve deficits. Motor grossly within normal limits. Normal speech. Data Data Last Documented VS Vital Signs Date Time Temp Pulse Resp B/P (MAP) Pulse Ox O2 Delivery O2 Flow Rate FiO2 07/19/17 15:33 97.9 67 19 146/67 (93) 93 Nasal Cannula 2.00 Orders Orders Electrocardiogram (07/19/17 ) Complete Blood Count With Diff (07/19/17 15:46) Comprehensive Metabolic Panel (07/19/17 15:46) Prothrombin Time / Inr (Pt) (07/19/17 15:46) Act Partial Throm Time (Ptt) (07/19/17 15:46) Lipase (07/19/17 15:46) Troponin I (07/19/17 15:46) Chest, Single Ap (07/19/17 ) Ct Abd/Pel W/O Iv Contrast (07/19/17 ) Morphine Inj (Morphine Inj) (07/19/17 16:00) Urinalysis - C+S If Indicated (07/19/17 15:48) Sodium Chlor 0.9% 1000 Ml Inj (Ns 1000 M (07/19/17 17:00) Prochlorperazine Inj (Compazine Inj) (07/19/17 17:30) Morphine Inj (Morphine Inj) (07/19/17 17:30) Admit Order (Ed Use Only) (07/19/17 17:45) Labs Laboratory Tests Test 07/19/17 15:35 White Blood Count 6.5 TH/MM3 Red Blood Count 2.66 MIL/MM3 Hemoglobin 7.6 GM/DL Hematocrit 23.8 % Mean Corpuscular Volume 89.2 FL Mean Corpuscular Hemoglobin 28.5 PG Mean Corpuscular Hemoglobin Concent 32.0 % Red Cell Distribution Width 14.3 % Platelet Count 179 TH/MM3 Mean Platelet Volume 8.6 FL Neutrophils (%) (Auto) 75.4 % Lymphocytes (%) (Auto) 10.3 % Monocytes (%) (Auto) 11.3 % Eosinophils (%) (Auto) 2.3 % Basophils (%) (Auto) 0.7 % Neutrophils # (Auto) 4.9 TH/MM3 Lymphocytes # (Auto) 0.7 TH/MM3 Monocytes # (Auto) 0.7 TH/MM3 Eosinophils # (Auto) 0.2 TH/MM3 Basophils # (Auto) 0.0 TH/MM3 CBC Comment DIFF FINAL Differential Comment Prothrombin Time 11.2 SEC Prothromb Time International Ratio 1.1 RATIO Activated Partial Thromboplast Time 25.3 SEC Blood Urea Nitrogen 86 MG/DL Creatinine 3.89 MG/DL Random Glucose 151 MG/DL Total Protein 6.5 GM/DL Albumin 3.2 GM/DL Calcium Level 8.6 MG/DL Alkaline Phosphatase 109 U/L Aspartate Amino Transf (AST/SGOT) 16 U/L Alanine Aminotransferase (ALT/SGPT) 20 U/L Total Bilirubin 0.3 MG/DL Sodium Level 136 MEQ/L Potassium Level 4.8 MEQ/L Chloride Level 104 MEQ/L Carbon Dioxide Level 20.7 MEQ/L Anion Gap 11 MEQ/L Estimat Glomerular Filtration Rate 12 ML/MIN Troponin I LESS THAN 0.02 NG/ML Lipase 55 U/L [facility] Medical Decision Making Medical Screen Exam Complete: Yes Emergency Medical Condition: Yes Interpretation(s) EKG: Sinus bradycardia at 56bpm. No ST segment elevation or depression. Q wave III. Differential Diagnosis Dehydration vs. EDITH vs. intractable vomiting vs. obstruction vs. UTI Narrative Course 56yo F with renal transplant 2000 on cyclosporine, right [place] kidney nephrectomy here with persistent vomiting and abdominal pain today. Said she is unable to keep anything down including her medications. Labs reviewed, H/H low at 7.6/23.8 which seemed to be her baseline. BUN/creatinine elevated at 86/ 3.89. Pt was admitted for EDITH and had BUN/creatinine of 79/3.81 which improved to 69/2.66 at discharge. Pt was given zofran by [facility] and unable to keep anything down. Said phenergan does not work. Pt given NS IVF, morphine and compazine. Also with atypical chest pain. Troponin negative. CXR showed bibasilar airspace with possible bilateral effusions. Mild cardiomegaly. Dr. Velez is her certified alcohol counselor. UA pending. Discussed with Dr. Aaron and accepted to her service. Diagnosis Primary Impression: EDITH (acute kidney injury) Additional Impression: Intractable nausea and vomiting Qualified Codes: R11.2 - Nausea with vomiting, unspecified Admitting Information Admitting Physician Requests: it Makeda Ray DO Jul 19, 2017 15:55
[2017-07-19] MEDS ORDERED: MORPHINE SULFATE 8 MG/ML INJ IV PUSH ONE ×2 (16:00→17:30)
[2017-07-19 16:10] LABS: AUTOMATED NEUTROPHIL # 4.9 TH/MM3 (1.8-7.7); BASOPHIL % 0.7 % (0.0-2.0); EOSINOPHIL # 0.2 TH/MM3 (0-0.4); EOSINOPHIL % 2.3 % (0.0-4.0); HEMATOCRIT 23.8 % (35.0-46.0); HEMOGLOBIN 7.6 GM/DL (11.6-15.3); LYMPH % 10.3 % (9.0-44.0); LYMPHOCYTE # 0.7 TH/MM3 (1.0-4.8); MEAN CELL VOLUME 89.2 FL (80.0-100.0); MEAN CORPUSCULAR HEMOGLOBIN 28.5 PG (27.0-34.0); MEAN PLATELET VOLUME 8.6 FL (7.0-11.0); MONO % 11.3 % (0.0-8.0); MONOCYTE # 0.7 TH/MM3 (0-0.9); NEUT % 75.4 % (16.0-70.0); PLATELET COUNT 179 TH/MM3 (150-450); RED BLOOD COUNT 2.66 MIL/MM3 (4.00-5.30); RED CELL DISTRIBUTION WIDTH 14.3 % (11.6-17.2); WHITE BLOOD COUNT 6.5 TH/MM3 (4.0-11.0)
[2017-07-19 16:24] LABS: ALBUMIN 3.2 GM/DL (3.4-5.0); AST (GOT) 16 U/L (15-37); BICARBONATE 20.7 MEQ/L (21.0-32.0); BLOOD UREA NITROGEN 86 MG/DL (7-18); CALCIUM 8.6 MG/DL (8.5-10.1); CHLORIDE 104 MEQ/L (98-107); CREATININE 3.89 MG/DL (0.50-1.00); GLOMERULAR FILTRATION RATE 12 ML/MIN (>89); GLUCOSE,RANDOM 151 MG/DL (74-106); LIPASE 55 U/L (73-393); SODIUM (NA) 136 MEQ/L (136-145)
[2017-07-19 16:25] LABS: ALT (GPT) 20 U/L (10-53)
[2017-07-19 16:29] LABS: ALKALINE PHOSPHATASE 109 U/L (45-117); TOTAL BILIRUBIN ADULT 0.3 MG/DL (0.2-1.0); TOTAL PROTEIN 6.5 GM/DL (6.4-8.2); TROPONIN I LESS THAN 0.02 NG/ML (0.02-0.05)
[2017-07-19 16:33] LABS: INTERNATIONAL NORMALIZED RATIO 1.1 RATIO; PROTHROMBIN TIME - PATIENT 11.2 SEC (9.8-11.6)
--- NOTE | 2017-07-19 16:51 | RADRPT ---
EXAM DATE/TIME: 07/19/2017 16:37 [facility] COMPARISON: CHEST PA & LAT, March 09, 2017, 10:49. INDICATIONS : Chest pain and shortness of breath. MEDICAL HISTORY : Cardiovascular disease Diabetes mellitus type 2. SURGICAL HISTORY : None. ENCOUNTER: Initial ACUITY: 1 month PAIN SCORE: 10/10 LOCATION: middle chest. FINDINGS: Significant opacity has developed in both lung bases. There are central and upper lung field vascular engorgement. Heart appears mildly enlarged. CONCLUSION: Bibasilar airspace disease with possible bilateral effusions. Mild cardiomegaly. Schuyler Saucedo MD on July 19, 2017 at 16:48 Board Certified Radiologist. This report was verified electronically.
[2017-07-19] MEDS ORDERED: SODIUM CHLOR 0.9% 1000 ML INJ 1,000 ML IV ONE (17:00)
--- NOTE | 2017-07-19 17:03 | RADRPT ---
EXAM DATE/TIME: 07/19/2017 16:25 [facility] COMPARISON: CT ABDOMEN & PELVIS W/O CONTRAST, March 04, 2017, 1:39. INDICATIONS : Patient with abdominal pain, worse after kidney removal in May. ORAL CONTRAST: No oral contrast ingested. RADIATION DOSE: 27.00 CTDIvol (mGy) ; Patient body habitus MEDICAL HISTORY : Renal cell carcinoma. Cardiovascular disease Hypertension.COPD SURGICAL HISTORY : Cholecystectomy. Nephrectomy, right.kidney transplant ENCOUNTER: Initial ACUITY: 4 - 6 days PAIN SCALE: 10/10 LOCATION: abdomen TECHNIQUE: Volumetric scanning of the abdomen and pelvis was performed. Using automated exposure control and ad justment of the mA and/or kV according to patient size, radiation dose was kept as low as reasonably achievable to obtain optimal diagnostic quality images. DICOM format image data is available electro nically for review and comparison. FINDINGS: LOWER LUNGS: Segmental bibasilar consolidation with small bilateral effusions have developed. LIVER: Homogeneous density without lesion. There is no dilation of the biliary tree. Post cholecystectomy c lips are noted. SPLEEN: Normal size without lesion. PANCREAS: Within normal limits. KIDNEYS: The right kidney has been removed. Left kidney is small. A 3 cm solid appearing nodule remains eviden t off the upper pole. Transplanted kidney is identified in the right pelvis. There is no hydronephros is. Prominent cyst is identified in the transplant kidney. ADRENAL GLANDS: Within normal limits. VASCULAR: There is no aortic aneurysm. BOWEL/MESENTERY: The stomach, small bowel, and colon demonstrate no acute abnormality. There is no free intraperitone al air or fluid. ABDOMINAL WALL: Significant edematous changes seen throughout the abdominal wall. RETROPERITONEUM: There is no lymphadenopathy. BLADDER: No wall thickening or mass. REPRODUCTIVE: Within normal limits. INGUINAL: There is no lymphadenopathy or hernia. MUSCULOSKELETAL: Within normal limits for patient age. CONCLUSION: 1. Status post right nephrectomy with no acute findings in the right renal fossa. 2. New bibasilar consolidating infiltrate and small bilateral effusions. 3. Anasarca 4. 3 cm left renal mass; unchanged. 5. Status post cholecystectomy. Schuyler Saucedo MD on July 19, 2017 at 16:50 Board Certified Radiologist. This report was verified electronically.
[2017-07-19] MEDS ORDERED: PROCHLORPERAZINE INJ 10 MG/2 ML VIAL IV PUSH ONE (17:30)
[2017-07-19] MEDS ORDERED: NALOXONE HCL 0.4 MG/ML AMP IV PUSH PRN (18:00)
[2017-07-19] MEDS ORDERED: GLUCAGON 1 MG/ML VIAL OTHER PRN (18:00)
--- NOTE | 2017-07-19 19:30 | PD.CONS ---
HPI Service Nephrology Consult Requested By Dr. Nation Reason for Consult Acute and chronic kidney disease status post kidney transplant Primary Care Physician Iván Becerra MD History of Present Illness Patient is a 56-year-old female with history of kidney transplant since 2000, she has renal cell cancer and has one kidney removed she has persistent nausea and vomiting and taking Phenergan and Zofran which is not working she came in with these complaints to the hospital and then her creatinine was 3.8, her baseline creatinine was 2.8- 2.6 last week She has a radical right nephrectomy for renal cell Cancer in May 2017 Review of Systems Constitutional: COMPLAINS OF: Fatigue Gastrointestinal: COMPLAINS OF: Nausea, Vomiting Musculoskeletal: COMPLAINS OF: Joint pain, Muscle aches, Back pain Neurologic: COMPLAINS OF: Localized weakness Past Family Social History Allergies: Coded Allergies: adhesive (Unverified Allergy, Severe, SILK TAPE, 07/07/17) NSAIDS (Non-Steroidal Anti-Inflamma (Verified Adverse Reaction, Severe, Nausea/Vomiting, 07/07/17) Past Medical History Kidney transplant 2000 Renal cell cancer Obesity Arthritis Hypertension Diabetes Charcot foot morbid obesity Past Surgical History Right nephrectomy Kidney transplant in 2000 Orthopedic review his lumbar spine Reported Medications Reported Meds & Active Scripts Active Neoral (Cyclosporine (Modified)) 25 Mg Cap 75 Mg PO BID@06,18 Synthroid (Levothyroxine Sodium) 50 Mcg Tab 50 Mcg PO DAILY@0600 Levemir Inj (Insulin Detemir) 1,000 unit/ 10 ML Vial 4 Units SQ HS Do not mix with any other Insulin. Novolog Inj (Insulin Aspart) 1,000 Unit/10 Ml Vial 4 Units SQ DAILY@1200 Novolog Inj (Insulin Aspart) 1,000 Unit/10 Ml Vial 4 Units SQ DAILY@17 Hydrochlorothiazide 25 Mg Tab 25 Mg PO DAILY Hydralazine HCl 25 Mg Tablet 50 Mg PO Q8HR Doxycycline Hyclate 100 Mg Cap 100 Mg PO BID Levemir Inj (Insulin Detemir) 1,000 unit/ 10 ML Vial 50 Units SQ DAILYAC 30 Days Do not mix with any other Insulin. Phenergan (Promethazine HCl) 25 Mg Tablet 25 Mg PO Q6H PRN Novolog Inj (Insulin Aspart) 1,000 Unit/10 Ml Vial 1-9 Units SQ ACHS Max dose at bedtime:( )units; sugars less than 70,(0)units; sugars 150-199,(1) unit; sugars 200-249,(3) units; sugars 250-299,(5) units; sugars 300-349,(7) units; sugars greater than 349,(9) units Insulin Syringe/U-100/31G X 12/20" 1 ml 31 Gauge X 12/20" Mis Ea .ROUTE DIRECTED Metoprolol Tartrate 50 Mg Tab 50 Mg PO BID Hydrocodone-Acetaminophen 5-325 mg Tab 1 Tab PO Q8HR PRN Ferosul (Ferrous Sulfate) 325 Mg (65 Mg Iron) Tablet 325 Mg PO BID@,17 30 Days Senna Plus 8.6-50 mg (Sennosides-Docusate Sodium) 8.6 Mg-50 Mg Tab 1 Tab PO BID 30 Days Norvasc (Amlodipine Besylate) 5 Mg Tab 10 Mg PO DAILY Zofran Odt (Ondansetron Odt) 4 Mg Tab 4 Mg SL Q6HR PRN Zoloft (Sertraline HCl) 100 Mg Tab 200 Mg PO DAILY Flovent Hfa 10.6 GM Inh (Fluticasone Propionate) 44 Mcg/Act Inh 2 Puff INH BID Use daily at the same time. Serevent Diskus Inh (Salmeterol Xinafoate) 50 Mcg/Act Aero 50 Mcg INH BID Ventolin Hfa 18 GM Inh (Albuterol Sulfate) 90 Mcg/Act Aer 2 Puff INH Q4H PRN Calcium 500 + Vit D Caplet (Calcium Carbonate/Vitamin D3) 1 Each Tablet 1 Cap PO BIDPC 30 Days Womens Daily Formula (Multiple Vitamins W/ Minerals) 1 Tab Tab 1 Cap PO DAILY 30 Days Aspir-81 (Aspirin) 81 Mg Tabdr 81 Mg PO DAILY 30 Days Zocor (Simvastatin) 20 Mg Tab 20 Mg PO HS Pepcid (Famotidine) 20 Mg Tab 20 Mg PO BID Prednisone 5 Mg Tab 5 Mg PO DAILY 30 Days Cellcept (Mycophenolate Mofetil) 500 Mg Tab 500 Mg PO BID Active Ordered Medications Current Medications Medications (Trade) Dose Ordered Sig/Nadir Route Start Time Stop Time Status Last Admin (NS Flush) 2 ml UNSCH PRN IV FLUSH 07/19/17 18:00 (NS Flush) 2 ml BID IV FLUSH 07/19/17 21:00 (Narcan Inj) 0.4 mg UNSCH PRN IV PUSH 07/19/17 18:00 (D50w (Vial) Inj) 50 ml UNSCH PRN IV PUSH 07/19/17 18:00 (Glucagon Inj) 1 mg UNSCH PRN OTHER 07/19/17 18:00 (NovoLOG SUPPLEMENTAL SCALE) 1 ACHS SLIDING SCALE SQ 07/19/17 21:00 Family History Noncontributory Social History Denies smoking or alcohol use Physical Exam Vital Signs Vital Signs Date Time Temp Pulse Resp B/P (MAP) Pulse Ox O2 Delivery O2 Flow Rate FiO2 07/19/17 15:33 97.9 67 19 146/67 (93) 93 Nasal Cannula 2.00 07/19/17 15:29 19 Physical Exam GENERAL: Well-nourished, well-developed patient. SKIN: Warm and dry. HEAD: Normocephalic. EYES: No scleral icterus. No injection or drainage. NECK: Supple, trachea midline. No JVD or lymphadenopathy. CARDIOVASCULAR: Regular rate and rhythm without murmurs, gallops, or rubs. RESPIRATORY: Breath sounds equal bilaterally. No accessory muscle use. GASTROINTESTINAL: Abdomen soft, non-tender, nondistended. EXTREMITIES: No cyanosis, or edema. NEUROLOGICAL: Awake, alert, and oriented x 3. Non-focal. Laboratory Laboratory Tests Test 07/19/17 15:35 White Blood Count 6.5 Red Blood Count 2.66 Hemoglobin 7.6 Hematocrit 23.8 Mean Corpuscular Volume 89.2 Mean Corpuscular Hemoglobin 28.5 Mean Corpuscular Hemoglobin Concent 32.0 Red Cell Distribution Width 14.3 Platelet Count 179 Mean Platelet Volume 8.6 Neutrophils (%) (Auto) 75.4 Lymphocytes (%) (Auto) 10.3 Monocytes (%) (Auto) 11.3 Eosinophils (%) (Auto) 2.3 Basophils (%) (Auto) 0.7 Neutrophils # (Auto) 4.9 Lymphocytes # (Auto) 0.7 Monocytes # (Auto) 0.7 Eosinophils # (Auto) 0.2 Basophils # (Auto) 0.0 CBC Comment DIFF FINAL Differential Comment Prothrombin Time 11.2 Prothromb Time International Ratio 1.1 Activated Partial Thromboplast Time 25.3 Blood Urea Nitrogen 86 Creatinine 3.89 Random Glucose 151 Total Protein 6.5 Albumin 3.2 Calcium Level 8.6 Alkaline Phosphatase 109 Aspartate Amino Transf (AST/SGOT) 16 Alanine Aminotransferase (ALT/SGPT) 20 Total Bilirubin 0.3 Sodium Level 136 Potassium Level 4.8 Chloride Level 104 Carbon Dioxide Level 20.7 Anion Gap 11 Estimat Glomerular Filtration Rate 12 Troponin I LESS THAN 0.02 Lipase 55 Result Diagram: 07/19/17 1535 07/19/17 1535 Imaging Last Impressions Chest X-Ray 07/19/17 0000 Signed Impressions: Service Date/Time: Wednesday, July 19, 2017 16:37 - CONCLUSION: Bibasilar airspace disease with possible bilateral effusions. Mild cardiomegaly. Schuyler Saucedo MD Abdomen/Pelvis CT 07/19/17 0000 Signed Impressions: Service Date/Time: Wednesday, July 19, 2017 16:25 - CONCLUSION: 1. Status post right nephrectomy with no acute findings in the right renal fossa. 2. New bibasilar consolidating infiltrate and small bilateral effusions. 3. Anasarca 4. 3 cm left renal mass; unchanged. 5. Status post cholecystectomy. Schuyler Saucedo MD Assessment and Plan Problem List: (1) EDITH (acute kidney injury) ICD Codes: N17.9 - Acute kidney failure, unspecified Status: Acute Plan: Patient is declining and has renal failure I agree with hydration and follow BMP she is on cyclosporine, mycophenolate and prednisone (2) Diabetes ICD Codes: E11.9 - Type 2 diabetes mellitus without complications Status: Chronic Plan: Monitor (3) HTN (hypertension) ICD Codes: I10 - Essential (primary) hypertension Status: Chronic (4) H/O kidney transplant ICD Codes: Z94.0 - Kidney transplant status Status: Acute Plan: Patient has a failing allograft Problem Qualifiers (1) Diabetes: Misha Phelan MD Jul 19, 2017 19:30
[2017-07-19] MEDS ORDERED: predniSONE 5 MG TAB PO ONE (19:45)
[2017-07-19] MEDS ORDERED: MYCOPHENOLATE MOFETIL 500 MG TAB PO ONE (19:45)
[2017-07-19] MEDS ORDERED: Vancomycin Consult Pharmacy 1 EA OTHER SCH (20:00)
[2017-07-19] MEDS ORDERED: SODIUM CHLOR 0.9% 1000 ML INJ 1,000 ML IV SCH (20:00)
[2017-07-19] MEDS ORDERED: VANCOMYCIN INJ 1,000 MG in SODIUM CHLOR 0.9% 250 ML INJ 250 ML IV SCH (20:00)
[2017-07-19] MEDS ORDERED: RESP: ALBUTEROL 2.5 MG/IPRATROPIUM 0.5 MG NEB (PRN) NEB (20:00)
--- NOTE | 2017-07-19 20:09 | HHI.HP ---
[facility] Iván Becerra MD Admission Diagnosis Acute on chronic kidney failure Diagnoses: Travel History International Travel<30 Days: No Contact w/Intl Traveler <30 Da: No Traveled to Known Affected Are: No History of Present Illness 56-year-old female with a past medical history of hypertension, hyperlipidemia, depression, morbid obesity, CKD status post renal transplant, renal cell carcinoma status post right nephrectomy, diabetes mellitus and sleep apnea presents to the ER with persistent vomiting despite home medication with Zofran and Phenergan. Patient also complains of generalized abdominal pain, worst in the epigastric region. He was discharged from the hospital on 07/13 where she was treated for acute on chronic kidney injury, generalized weakness and hyperkalemia. She is chronically on 2-3 L nasal cannula at home with a history of asthma. She denies any fever/chills. H&H 7.6/23.8 which is approximately patient's baseline. BUN/creatinine 86/3.89, patient's creatinine 2.66 on 07/13. Chest x-ray showed bibasilar airspace disease with possible bilateral pleural effusions. CT of the abdomen/pelvis with new bibasilar consolidating infiltrate and 3 cm left renal mass which is unchanged from previous. Review of Systems Denies fever or chills Denies blurry vision, otorrhea, rhinorrhea Denies sore throat and cough No chest pain, palpitations, shortness of breath Positive abdominal pain Denies constipation/diarrhea. Positive nausea/vomiting Denies muscle pain/weakness No rashes Past Family Social History Past Medical History Hypertension Hyperlipidemia Depression Morbid obesity CK D status post renal transplant Renal cell carcinoma status post right nephrectomy Diabetes mellitus PATRICIA Past Surgical History Right nephrectomy Kidney transplant Tonsillectomy Lumbar surgery Cholecystectomy Reported Medications Reported Meds & Active Scripts Active Neoral (Cyclosporine (Modified)) 25 Mg Cap 75 Mg PO BID@06,18 Synthroid (Levothyroxine Sodium) 50 Mcg Tab 50 Mcg PO DAILY@0600 Levemir Inj (Insulin Detemir) 1,000 unit/ 10 ML Vial 4 Units SQ HS Do not mix with any other Insulin. Novolog Inj (Insulin Aspart) 1,000 Unit/10 Ml Vial 4 Units SQ DAILY@1200 Novolog Inj (Insulin Aspart) 1,000 Unit/10 Ml Vial 4 Units SQ DAILY@17 Hydrochlorothiazide 25 Mg Tab 25 Mg PO DAILY Hydralazine HCl 25 Mg Tablet 50 Mg PO Q8HR Doxycycline Hyclate 100 Mg Cap 100 Mg PO BID Levemir Inj (Insulin Detemir) 1,000 unit/ 10 ML Vial 50 Units SQ DAILYAC 30 Days Do not mix with any other Insulin. Phenergan (Promethazine HCl) 25 Mg Tablet 25 Mg PO Q6H PRN Novolog Inj (Insulin Aspart) 1,000 Unit/10 Ml Vial 1-9 Units SQ ACHS Max dose at bedtime:( )units; sugars less than 70,(0)units; sugars 150-199,(1) unit; sugars 200-249,(3) units; sugars 250-299,(5) units; sugars 300-349,(7) units; sugars greater than 349,(9) units Insulin Syringe/U-100/31G X 12/20" 1 ml 31 Gauge X 12/20" Mis Ea .ROUTE DIRECTED Metoprolol Tartrate 50 Mg Tab 50 Mg PO BID Hydrocodone-Acetaminophen 5-325 mg Tab 1 Tab PO Q8HR PRN Ferosul (Ferrous Sulfate) 325 Mg (65 Mg Iron) Tablet 325 Mg PO BID@12,17 30 Days Senna Plus 8.6-50 mg (Sennosides-Docusate Sodium) 8.6 Mg-50 Mg Tab 1 Tab PO BID 30 Days Norvasc (Amlodipine Besylate) 5 Mg Tab 10 Mg PO DAILY Zofran Odt (Ondansetron Odt) 4 Mg Tab 4 Mg SL Q6HR PRN Zoloft (Sertraline HCl) 100 Mg Tab 200 Mg PO DAILY Flovent Hfa 10.6 GM Inh (Fluticasone Propionate) 44 Mcg/Act Inh 2 Puff INH BID Use daily at the same time. Serevent Diskus Inh (Salmeterol Xinafoate) 50 Mcg/Act Aero 50 Mcg INH BID Ventolin Hfa 18 GM Inh (Albuterol Sulfate) 90 Mcg/Act Aer 2 Puff INH Q4H PRN Calcium 500 + Vit D Caplet (Calcium Carbonate/Vitamin D3) 1 Each Tablet 1 Cap PO BIDPC 30 Days Womens Daily Formula (Multiple Vitamins W/ Minerals) 1 Tab Tab 1 Cap PO DAILY 30 Days Aspir-81 (Aspirin) 81 Mg Tabdr 81 Mg PO DAILY 30 Days Zocor (Simvastatin) 20 Mg Tab 20 Mg PO HS Pepcid (Famotidine) 20 Mg Tab 20 Mg PO BID Prednisone 5 Mg Tab 5 Mg PO DAILY 30 Days Cellcept (Mycophenolate Mofetil) 500 Mg Tab 500 Mg PO BID Allergies: Coded Allergies: adhesive (Unverified Allergy, Severe, SILK TAPE, 07/07/17) NSAIDS (Non-Steroidal Anti-Inflamma (Verified Adverse Reaction, Severe, Nausea/Vomiting, 07/07/17) Family History No family history of DM/CAD Social History Occasional alcohol. Negative for tobacco/drugs. Physical Exam Vital Signs Vital Signs Date Time Temp Pulse Resp B/P (MAP) Pulse Ox O2 Delivery O2 Flow Rate FiO2 07/19/17 15:33 97.9 67 19 146/67 (93) 93 Nasal Cannula 2.00 07/19/17 15:29 19 Physical Exam GENERAL: Obese female lying in bed. The patient is extremely drowsy. SKIN: No rashes, ecchymoses or lesions. Cool and dry. HEAD: Atraumatic. Normocephalic. No temporal or scalp tenderness. EYES: Pupils equal round and reactive. Extraocular motions intact. No scleral icterus. No injection or drainage. ENT: Nose without bleeding, purulent drainage or septal hematoma. Throat without erythema, tonsillar hypertrophy or exudate. Uvula midline. Airway patent. NECK: Trachea midline. No JVD or lymphadenopathy. Supple, nontender, no meningeal signs. CARDIOVASCULAR: Regular rate and rhythm without murmurs, gallops, or rubs. RESPIRATORY: Clear to auscultation. Breath sounds equal bilaterally. No wheezes , rales, or rhonchi. GASTROINTESTINAL: Abdomen soft, tender to palpation in the epigastric region, nondistended. No hepato-splenomegaly, or palpable masses. No guarding. MUSCULOSKELETAL: Bilateral LE edema, chronic. No calf tenderness. NEUROLOGICAL: Awake and alert. Cranial nerves II through XII intact. Motor and sensory grossly within normal limits. Normal speech. Laboratory Laboratory Tests Test 07/19/17 15:35 White Blood Count 6.5 Red Blood Count 2.66 Hemoglobin 7.6 Hematocrit 23.8 Mean Corpuscular Volume 89.2 Mean Corpuscular Hemoglobin 28.5 Mean Corpuscular Hemoglobin Concent 32.0 Red Cell Distribution Width 14.3 Platelet Count 179 Mean Platelet Volume 8.6 Neutrophils (%) (Auto) 75.4 Lymphocytes (%) (Auto) 10.3 Monocytes (%) (Auto) 11.3 Eosinophils (%) (Auto) 2.3 Basophils (%) (Auto) 0.7 Neutrophils # (Auto) 4.9 Lymphocytes # (Auto) 0.7 Monocytes # (Auto) 0.7 Eosinophils # (Auto) 0.2 Basophils # (Auto) 0.0 CBC Comment DIFF FINAL Differential Comment Prothrombin Time 11.2 Prothromb Time International Ratio 1.1 Activated Partial Thromboplast Time 25.3 Blood Urea Nitrogen 86 Creatinine 3.89 Random Glucose 151 Total Protein 6.5 Albumin 3.2 Calcium Level 8.6 Alkaline Phosphatase 109 Aspartate Amino Transf (AST/SGOT) 16 Alanine Aminotransferase (ALT/SGPT) 20 Total Bilirubin 0.3 Sodium Level 136 Potassium Level 4.8 Chloride Level 104 Carbon Dioxide Level 20.7 Anion Gap 11 Estimat Glomerular Filtration Rate 12 Troponin I LESS THAN 0.02 Lipase 55 Result Diagram: 07/19/17 1535 07/19/17 1535 Caprini VTE Risk Assessment Caprini VTE Risk Assessment: Mod/High Risk (score >= 2) Caprini Risk Assessment Model Point Value = 1 Point Value = 2 Point Value = 3 Point Value = 5 Age 41-60 Minor surgery BMI > 25 kg/m2 Swollen legs Varicose veins or History of unexplained or recurrent spontaneous Oral contraceptives or hormone replacement Sepsis (< 1 month) Serious lung disease, including pneumonia (< 1 month) Abnormal pulmonary function Acute myocardial infarction Congestive heart failure (< 1 month) History of inflammatory bowel disease Medical patient at bed rest Age 61-74 Arthroscopic surgery Major open surgery (> 45 min) Laparoscopic surgery (> 45 min) Malignancy Confined to bed (> 72 hours) Immobilizing plaster cast Central venous access Age >= 75 History of VTE Family history of VTE Factor V Leiden Prothrombin [id number] Lupus anticoagulant Anticardiolipin antibodies Elevated serum homocysteine Heparin-induced thrombocytopenia Other congenital or acquired thrombophilia Stroke (< 1 month) Elective arthroplasty Hip, pelvis, or leg fracture Acute spinal cord injury (< 1 month) Prophylaxis Regimen Total Risk Factor Score Risk Level Prophylaxis Regimen 0-1 Low Early ambulation 2 Moderate Order ONE of the following: *Sequential Compression Device (SCD) *Heparin 5000 units SQ BID 3-4 Higher Order ONE of the following medications: *Heparin 5000 units SQ TID *Enoxaparin/Lovenox 40 mg SQ daily (WT < 150 kg, CrCl > 30 mL/min) *Enoxaparin/Lovenox 30 mg SQ daily (WT < 150 kg, CrCl > 10-29 mL/min) *Enoxaparin/Lovenox 30 mg SQ BID (WT < 150 kg, CrCl > 30 mL/min) AND/OR *Sequential Compression Device (SCD) 5 or more Highest Order ONE of the following medications: *Heparin 5000 units SQ TID (Preferred with Epidurals) *Enoxaparin/Lovenox 40 mg SQ daily (WT < 150 kg, CrCl > 30 mL/min) *Enoxaparin/Lovenox 30 mg SQ daily (WT < 150 kg, CrCl > 10-29 mL/min) *Enoxaparin/Lovenox 30 mg SQ BID (WT < 150 kg, CrCl > 30 mL/min) AND *Sequential Compression Device (SCD) Assessment and Plan Assessment and Plan Assessment/plan: 1. Acute on chronic kidney injury/renal cell carcinoma/status post nephrectomy and renal transplant Nephrology consulted, appreciate recommendations Recommend continuing immunosuppressive therapy secondary to patient's renal transplant Recommend IV fluid hydration Follow renal function 2. Hospital-acquired pneumonia CT of the abdomen/pelvis shows new bibasilar consolidating infiltrate and small bilateral effusions Vancomycin/Zosyn as patient was recently hospitalized Afebrile, no leukocytosis Continue supplemental oxygen, patient baseline on 2-3 L Duo nebs 3. Diabetes mellitus Blood glucose 151 this afternoon SSI, holding home Levemir as patient has not been able to tolerate anything by mouth Monitor blood glucose, continue home insulin once patient able to eat 4. Hypertension/hyperlipidemia/hypothyroidism Continue home medications Monitor blood pressure 5. Anemia Chronic, at baseline Monitor CBC FEN Diabetic diet as tolerated NS at 100 cc/hr Monitor electrolytes Heparin Antoinette Queen MD Jul 19, 2017 20:09
[2017-07-19] MEDS: METOPROLOL TARTRATE 50 MG TAB PO SCH (20:58)
[2017-07-19] MEDS: SODIUM CHLOR 0.9% 1000 ML INJ 1,000 ML IV SCH (20:58)
[2017-07-19] MEDS: SODIUM CHLORIDE 0.9% FLUSH 10 ML FLUSH IV FLUSH SCH (20:58)
[2017-07-19] MEDS: PRAVASTATIN SOD 40 MG TAB PO SCH (20:58)
[2017-07-19] MEDS: FAMOTIDINE 20 MG TAB PO SCH (20:58)
[2017-07-19] MEDS: PIPERACIL-TAZO 4.5 GM PREMIX 100 ML IV SCH (20:58)
[2017-07-19] MEDS: FLUTICASONE PROPIONATE 44 MCG/ACT 10.6 GM INHALER INH SCH (21:00)
[2017-07-19] MEDS ORDERED: VANCOMYCIN INJ 2,000 MG in SODIUM CHLORID 0.9% 500 ML INJ 500 ML IV ONE (21:00)
[2017-07-19] MEDS: INSULIN ASPART SUPPLEMENTAL SCALE SQ SCH (21:00)
[2017-07-19] MEDS: SALMETEROL XINAFOATE 50 MCG DISKUS INH SCH (21:00)
[2017-07-19 21:07] VITALS: BP 130/60; PULSE 58; TEMP 97.6; O2SAT 94
[2017-07-19 22:00] VITALS: PULSE 54
[2017-07-19] MEDS: HEPARIN SODIUM - SQ 10,000 UNITS/ML VIAL SQ SCH (22:10)
[2017-07-19 22:23] VITALS: BP 138/61; PULSE 54; O2SAT 94
[2017-07-19] MEDS: hydrALAZINE HCL 25 MG TAB PO SCH (22:25)
[2017-07-19 23:16] VITALS: BP 124/58; PULSE 56; RESP 18; TEMP 97.4; O2SAT 95
[2017-07-19 23:59] VITALS: PULSE 53
[2017-07-20] VITALS (9 sets, daily range): BP systolic 118–146; BP diastolic 56–67; PULSE 57–68; RESP 16–22; TEMP 97.5–98.3; O2SAT 93–96
[2017-07-20] MEDS: PIPERACIL-TAZO 4.5 GM PREMIX 100 ML IV SCH ×2 (02:27→08:23)
[2017-07-20] MEDS: hydrALAZINE HCL 25 MG TAB PO SCH ×2 (06:30→16:19)
[2017-07-20] MEDS: LEVOTHYROXINE SODIUM 50 MCG TAB PO SCH (06:30)
[2017-07-20] MEDS: HEPARIN SODIUM - SQ 10,000 UNITS/ML VIAL SQ SCH ×2 (06:31→14:27)
[2017-07-20] MEDS: SODIUM CHLOR 0.9% 1000 ML INJ 1,000 ML IV SCH (06:31)
[2017-07-20 07:03] LABS: AUTOMATED NEUTROPHIL # 7.2 TH/MM3 (1.8-7.7); BASOPHIL # 0.1 TH/MM3 (0-0.2); BASOPHIL % 0.8 % (0.0-2.0); EOSINOPHIL # 0.1 TH/MM3 (0-0.4); EOSINOPHIL % 1.4 % (0.0-4.0); HEMATOCRIT 25.5 % (35.0-46.0); HEMOGLOBIN 7.9 GM/DL (11.6-15.3); LYMPH % 6.9 % (9.0-44.0); LYMPHOCYTE # 0.6 TH/MM3 (1.0-4.8); MEAN CELL VOLUME 91.2 FL (80.0-100.0); MEAN CORPUSCULAR HEMOGLOBIN 28.5 PG (27.0-34.0); MEAN CORPUSCULAR HGB CONC 31.2 % (32.0-36.0); MONO % 10.4 % (0.0-8.0); MONOCYTE # 0.9 TH/MM3 (0-0.9); NEUT % 80.5 % (16.0-70.0); PLATELET COUNT 198 TH/MM3 (150-450); RED BLOOD COUNT 2.79 MIL/MM3 (4.00-5.30); RED CELL DISTRIBUTION WIDTH 14.4 % (11.6-17.2)
[2017-07-20 07:22] LABS: BICARBONATE 20.9 MEQ/L (21.0-32.0); CALCIUM 8.6 MG/DL (8.5-10.1); CREATININE 4.07 MG/DL (0.50-1.00)
[2017-07-20] MEDS: INSULIN ASPART SUPPLEMENTAL SCALE SQ SCH ×4 (08:00→21:00)
[2017-07-20] MEDS: MORPHINE SULFATE 2 MG/ML INJ IV PUSH PRN ×2 (08:19→14:26)
[2017-07-20] MEDS: SALMETEROL XINAFOATE 50 MCG DISKUS INH SCH (08:22)
[2017-07-20] MEDS: FLUTICASONE PROPIONATE 44 MCG/ACT 10.6 GM INHALER INH SCH (08:22)
[2017-07-20 08:27] LABS: BANDS 4 % (0-6); BASOPHILS 2 % (0-2); KERATOCYTES OCC (NORMAL); LYMPHOCYTES 7 % (9-44); MONOCYTES 15 % (0-8); NEUTROPHIL # MANUAL DIFF 6.8 TH/MM3 (1.8-7.7); OVALOCYTES 1+ (NORMAL); POLYS (SEG NEUTROPHILS) 71 % (16-70)
[2017-07-20 08:28] LABS: ACANTHOCYTES OCC (NORMAL)
[2017-07-20] MEDS: SODIUM CHLORIDE 0.9% FLUSH 10 ML FLUSH IV FLUSH SCH ×2 (08:29→21:00)
[2017-07-20] MEDS: FAMOTIDINE 20 MG TAB PO SCH ×2 (08:30→21:00)
[2017-07-20] MEDS: HYDROCHLOROTHIAZIDE 25 MG TAB PO SCH (08:30)
[2017-07-20] MEDS: ASPIRIN EC 81 MG TABEC PO SCH (08:31)
[2017-07-20] MEDS: amLODIPine BESYLATE 5 MG TAB PO SCH (08:32)
[2017-07-20] MEDS: CALCIUM/VITAMIN D 250 MG/125 U TAB PO SCH ×2 (08:32→19:52)
[2017-07-20] MEDS: METOPROLOL TARTRATE 50 MG TAB PO SCH (09:00)
[2017-07-20] MEDS ORDERED: SERTRALINE HCL 100 MG TAB PO SCH (09:00)
[2017-07-20] MEDS ORDERED: predniSONE 5 MG TAB PO ONE (12:00)
[2017-07-20] MEDS ORDERED: MYCOPHENOLATE MOFETIL 500 MG TAB PO ONE (12:00)
[2017-07-20] MEDS: FERROUS SULFATE 325 MG (65 MG ELEMENTAL IRON) TAB PO SCH ×2 (12:44→19:52)
[2017-07-20] MEDS ORDERED: SODIUM CHLOR 0.9% 1000 ML INJ 1,000 ML OTHER PRN ×2 (13:19)
[2017-07-20] MEDS ORDERED: SODIUM CHLOR 0.9% 1000 ML INJ 1,000 ML IV PRN (13:19)
--- NOTE | 2017-07-20 13:19 | HHI.NPPN ---
Subjective History of Present Illness Patient is a 56-year-old female with history of kidney transplant since 2000, she has renal cell cancer and has one kidney removed she has persistent nausea and vomiting and taking Phenergan and Zofran which is not working she came in with these complaints to the hospital and then her creatinine was 3.8, her baseline creatinine was 2.8- 2.6 last week She has a radical right nephrectomy for renal cell Cancer in May 2017 Additional Remarks not feeling well, forgetful, tired, she do not recall taking her medications last night or today Review of Systems General Constitutional: Fatigue Cardiovascular Cardiac: Edema Objective Data Data Vital Signs Date Time Temp Pulse Resp B/P (MAP) Pulse Ox O2 Delivery O2 Flow Rate FiO2 07/20/17 11:38 97.5 60 22 127/61 (83) 95 07/20/17 07:11 97.9 61 22 146/66 (92) 96 07/20/17 06:15 64 18 143/66 (91) 94 07/20/17 04:00 57 07/20/17 03:17 97.6 68 16 123/58 (79) 96 07/19/17 23:59 53 07/19/17 23:16 97.4 56 18 124/58 (80) 95 07/19/17 22:23 54 138/61 (86) 94 07/19/17 22:00 54 07/19/17 21:07 97.6 58 130/60 (83) 94 07/19/17 21:00 Nasal Cannula 3.00 07/19/17 15:33 97.9 67 19 146/67 (93) 93 Nasal Cannula 2.00 07/19/17 15:29 19 -: 07/20/17 0603 07/20/17 0603 Physical Exam General Appearance: Well Developed, Obese Neck Neck Exam: Neck Supple Pulmonary Resp Exam: Decreased Bases Cardiology CV Exam: Regular Gastrointestinal/Abdomen GI Exam: Soft, Non-Tender, Bowel Sounds Present Extremeties Extremities Exam: Trace Edema Assessment/Plan Problem List: (1) EDITH (acute kidney injury) ICD Codes: N17.9 - Acute kidney failure, unspecified Status: Acute Plan: Patient has declined further no response to fluids continue to hydrate but I will decrease rate to 42 cc/hr she is forgetful, has jerky movements, anemia, likely getting uremic Likely she has ATN or worsening chronic graft loss discussed dialysis she agrees to it may need a PermCath and dialysis She may benefit from reducing Immunosuppression since has RCC diagnosed recently may stop Cellcept in near future. (2) Diabetes ICD Codes: E11.9 - Type 2 diabetes mellitus without complications Status: Chronic Plan: Monitor (3) HTN (hypertension) ICD Codes: I10 - Essential (primary) hypertension Status: Chronic (4) H/O kidney transplant ICD Codes: Z94.0 - Kidney transplant status Status: Acute Plan: Patient has a failing allograft Problem Qualifiers (1) Diabetes: Misha Phelan MD Jul 20, 2017 13:19
[2017-07-20] MEDS ORDERED: GELATIN 12 MM/7 MM FOAM TOP PRN (13:30)
[2017-07-20] MEDS ORDERED: NITROGLYCERIN 0.4 MG SL 25 TABS/BTL SL PRN (13:30)
[2017-07-20] MEDS ORDERED: cloNIDine HCL 0.1 MG TAB PO PRN (13:30)
[2017-07-20] MEDS ORDERED: ACETAMINOPHEN 325 MG TAB PO PRN (13:30)
[2017-07-20] MEDS ORDERED: diphenhydrAMINE HCL 25 MG CAP PO PRN (13:30)
[2017-07-20] MEDS ORDERED: SODIUM CHLORIDE 0.9% FLUSH 10 ML FLUSH IV FLUSH PRN (13:30)
[2017-07-20] MEDS ORDERED: HEPARIN SODIUM - IV 10,000 UNITS/10 ML VIAL IV FLUSH PRN (13:30)
[2017-07-20] MEDS ORDERED: ONDANSETRON HCL 4 MG/2 ML VIAL IV PUSH PRN (13:30)
[2017-07-20] MEDS ORDERED: PIPERACIL-TAZO 3.375 GM PREMIX 50 ML IV SCH (14:00)
--- NOTE | 2017-07-20 14:10 | EKG ---
Date Performed: 07/19/2017 Time Performed: 17:09:22 PTAGE: 56 years EKG: SINUS BRADYCARDIA LOW QRS VOLTAGE IN PRECORDIAL LEADS POSSIBLE ANTERIOR MYOCARDIAL INFARCTI ON BORDERLINE ECG Compared to prior tracing no significant change PREVIOUS TRACING : 05/02/2017 12.40 DOCTOR: Temi Jauregui Interpretating Date/Time 07/20/2017 14:09:21
[2017-07-20] MEDS ORDERED: ceFAZolin 2 GM PREMIX 50 ML IV SCH (14:45)
[2017-07-20] MEDS ORDERED: VANCOMYCIN INJ 1,000 MG in SODIUM CHLOR 0.9% 250 ML INJ 250 ML IV SCH (14:45)
--- NOTE | 2017-07-20 15:16 | HHI.PR ---
Subjective Remarks Patient looks very fatigued, she is morbidly obese, awake barely talking, slightly lethargic possibly due to uremia She denied chest pain, stated her breathing is slightly better she is on nasal cannula oxygen Denied having any fever Objective Vitals Vital Signs Date Time Temp Pulse Resp B/P (MAP) Pulse Ox O2 Delivery O2 Flow Rate FiO2 07/20/17 11:38 97.5 60 22 127/61 (83) 95 07/20/17 07:11 97.9 61 22 146/66 (92) 96 07/20/17 06:15 64 18 143/66 (91) 94 07/20/17 04:00 57 07/20/17 03:17 97.6 68 16 123/58 (79) 96 07/19/17 23:59 53 07/19/17 23:16 97.4 56 18 124/58 (80) 95 07/19/17 22:23 54 138/61 (86) 94 07/19/17 22:00 54 07/19/17 21:07 97.6 58 130/60 (83) 94 07/19/17 21:00 Nasal Cannula 3.00 07/19/17 15:33 97.9 67 19 146/67 (93) 93 Nasal Cannula 2.00 07/19/17 15:29 19 I/O 07/19/17 07/19/17 07/19/17 07/20/17 07/20/17 07/20/17 07:00 15:00 23:00 07:00 15:00 23:00 Intake Total 1100 ml 600 ml Balance 1100 ml 600 ml Intake IV Total 1100 ml 600 ml Result Diagram: 07/20/1703 07/20/17 0603 Objective Remarks - - GENERAL: This is morbidly obese 56 years old female looks very fatigued, in no apparent distress. SKIN: No rashes, warm and dry HEAD: Atraumatic. Normocephalic. EYES: Pupils equal round and reactive. Extraocular motions intact. No scleral icterus. ENT: Nose without bleeding, or drainage, Airway patent. NECK: Trachea midline. Supple CARDIOVASCULAR: Sounds are distant due to body habitus Regular rate and rhythm without murmurs, gallops, or rubs. RESPIRATORY: Breath sounds distant due to body habitus No wheezes, rales, or rhonchi. Could be appreciated GASTROINTESTINAL: Abdomen soft, non-tender, nondistended. Positive bowel sounds MUSCULOSKELETAL: Extremities without clubbing, cyanosis, +1 edema. Pedal pulses appreciated NEUROLOGICAL: Awake and alert. Moves all extremity. Normal speech.no focal neurological deficit A/P Assessment and Plan 07/20: Creatinine continue to worsen from 3.89-4.07, I will consult ID to manage antibiotic considering patient is immunocompromised, appreciate nephrology consultation recommending decreasing her immunosuppressant medication , gentle iv hydration and going back on dialysis, probably Vas-Cath in a.m. A/P: 1. Acute on chronic kidney injury/renal cell carcinoma/status post nephrectomy and renal transplant Nephrology consulted, appreciate recommendations Recommend continuing immunosuppressive therapy secondary to patient's renal transplant Recommend IV fluid hydration Follow renal function 2. Hospital-acquired pneumonia CT of the abdomen/pelvis shows new bibasilar consolidating infiltrate and small bilateral effusions Vancomycin/Zosyn as patient was recently hospitalized Afebrile, no leukocytosis Continue supplemental oxygen, patient baseline on 2-3 L Duo nebs 3. Diabetes mellitus Blood glucose 151 this afternoon SSI, holding home Levemir as patient has not been able to tolerate anything by mouth Monitor blood glucose, continue home insulin once patient able to eat 4. Hypertension/hyperlipidemia/hypothyroidism Continue home medications Monitor blood pressure 5. Anemia Chronic, at baseline Monitor CBC Chris Nation MD Jul 20, 2017 15:16
--- NOTE | 2017-07-20 17:26 | PD.ID.CON ---
History of Present Illness Service ID Consult Requested By Dr Nation Reason for Consult PNA, immunocompromised Primary Care Physician Iván Becerra MD Diagnoses: History of Present Illness 56 yo femael wtih h/io renal allograft ( in 2000), immunosuppressed very poor histiriaan present with malaise, no specific back pain Her creatinine was in 4 range UOP small and she is incontinent, UA with 7 WBC w/u showed segmental basilar disease Review of Systems ROS Limitations: Clinical Condition, Poor Historian Past Family Social History Allergies: Coded Allergies: adhesive (Unverified Allergy, Severe, SILK TAPE, 07/07/17) NSAIDS (Non-Steroidal Anti-Inflamma (Verified Adverse Reaction, Severe, Nausea/Vomiting, 07/07/17) Past Medical History Kidney transplant 2000 Renal cell cancer Obesity Arthritis Hypertension Diabetes Charcot foot morbid obesity Past Surgical History Right nephrectomy Kidney transplant in 2000 Orthopedic review his lumbar spine Active Ordered Medications Medications where reviewed in EMR Antibiotics Include: zosyn vanco Immunosuppression: cellcept, cyclosporin, prednison 5 mg Family History reviewed non contributory Social History No tobacco, ETOH, drugs of abuse Physical Exam Vital Signs Vital Signs Date Time Temp Pulse Resp B/P (MAP) Pulse Ox O2 Delivery O2 Flow Rate FiO2 07/20/17 15:57 98.1 60 20 143/67 (92) 95 07/20/17 11:38 97.5 60 22 127/61 (83) 95 07/20/17 08:32 94 Nasal Cannula 3.00 07/20/17 07:11 97.9 61 22 146/66 (92) 96 07/20/17 06:15 64 18 143/66 (91) 94 07/20/17 04:00 57 07/20/17 03:17 97.6 68 16 123/58 (79) 96 07/19/17 23:59 53 07/19/17 23:16 97.4 56 18 124/58 (80) 95 07/19/17 22:23 54 138/61 (86) 94 07/19/17 22:00 54 07/19/17 21:07 97.6 58 130/60 (83) 94 07/19/17 21:00 Nasal Cannula 3.00 Physical Exam CONSTITUTIONAL/GENERAL: This is a morbidly obese patient, in no apparent distress. Appears sick TUBES/LINES/DRAINS: SKIN: No jaundice, rashes, or lesions. Ecchymoses on upper extremities. No wounds seen anteriorly. Skin temperature appropriate. Not diaphoretic. HEAD: Atraumatic. Normocephalic. EYES: Pupils equal and round and reactive. Extraocular motions intact. No scleral icterus. No injection or drainage. Fundi not examined. ENT: Hearing grossly normal. Nose without bleeding or purulent drainage. Throat without visible erythema, exudates, masses, or lesions. NECK: Trachea midline. Supple, nontender. No palpable thyroid enlargement or nodularity. CARDIOVASCULAR: Regular rate and rhythm without murmurs, gallops, or rubs. No JVD. Peripheral pulses symmetric. RESPIRATORY/CHEST: Symmetric, unlabored respirations. Clear to auscultation. Breath sounds equal bilaterally. No wheezes, rales, or rhonchi. GASTROINTESTINAL: Abdomen soft, non-tender, nondistended Its markely obese and degree of obesty preculdes examination of organoomegaly, or palpable masses. No guarding. Bowel sounds present. GENITOURINARY: Without palpable bladder distension. MUSCULOSKELETAL: Extremities without clubbing, cyanosis, or edema. No joint tenderness or effusion noted. No calf tenderness. No mottling or clubbing. LYMPHATICS: No palpable cervical or supraclavicular adenopathy. NEUROLOGICAL: Quite lethargi, arousable easily . Motor and sensory grossly within normal limits. Follows commands. Clear speech . Moves all extremities. PSYCHIATRIC: appropriate, calm, cooperative Laboratory Laboratory Tests Test 07/20/17 06:03 07/20/17 14:23 White Blood Count 9.0 Red Blood Count 2.79 Hemoglobin 7.9 Hematocrit 25.5 Mean Corpuscular Volume 91.2 Mean Corpuscular Hemoglobin 28.5 Mean Corpuscular Hemoglobin Concent 31.2 Red Cell Distribution Width 14.4 Platelet Count 198 Mean Platelet Volume 8.0 Neutrophils (%) (Auto) 80.5 Lymphocytes (%) (Auto) 6.9 Monocytes (%) (Auto) 10.4 Eosinophils (%) (Auto) 1.4 Basophils (%) (Auto) 0.8 Neutrophils # (Auto) 7.2 Lymphocytes # (Auto) 0.6 Monocytes # (Auto) 0.9 Eosinophils # (Auto) 0.1 Basophils # (Auto) 0.1 CBC Comment AUTO DIFF Differential Total Cells Counted 100 Neutrophils % (Manual) 71 Band Neutrophils % 4 Lymphocytes % 7 Monocytes % 15 Eosinophils % 1 Basophils % 2 Neutrophils # (Manual) 6.8 Differential Comment FINAL DIFF MANUAL Platelet Estimate NORMAL Platelet Morphology Comment NORMAL Basophilic Stippling FAINT Ovalocytes 1+ Acanthocytes OCC Keratocytes OCC Blood Urea Nitrogen 89 Creatinine 4.07 Random Glucose 149 Calcium Level 8.6 Sodium Level 136 Potassium Level 5.0 Chloride Level 105 Carbon Dioxide Level 20.9 Anion Gap 10 Estimat Glomerular Filtration Rate 11 Result Diagram: 07/20/17 0603 07/20/17 0603 Imaging Last Impressions Chest X-Ray 07/19/17 0000 Signed Impressions: Service Date/Time: Wednesday, July 19, 2017 16:37 - CONCLUSION: Bibasilar airspace disease with possible bilateral effusions. Mild cardiomegaly. Schuyler Saucedo MD Abdomen/Pelvis CT 07/19/17 0000 Signed Impressions: Service Date/Time: Wednesday, July 19, 2017 16:25 - CONCLUSION: 1. Status post right nephrectomy with no acute findings in the right renal fossa. 2. New bibasilar consolidating infiltrate and small bilateral effusions. 3. Anasarca 4. 3 cm left renal mass; unchanged. 5. Status post cholecystectomy. Schuyler Saucedo MD Assessment and Plan Assessment and Plan PNA ARF/CKD Immunosuppresed Renal allograft avoid neprotoxins: will dc vancomycin start IV zyvox cont zosyn add zithromax chk sputum clx chk flu/leg / penumococcus Geena Price MD Jul 20, 2017 17:14
[2017-07-20 18:59] LABS: AMORPHOUS SEDIMENT, URINE RARE; BILIRUBIN, URINE NEG (NEG); BLOOD, URINE NEG (NEG); GLUCOSE,URINE NEG (NEG); KETONE, URINE NEG (NEG); NITRITE,URINE NEG (NEG); URINE COLOR YELLOW (YELLW/STRAW); URINE LEUKOCYTE ESTERASE MOD (NEG)
[2017-07-20] MEDS: MYCOPHENOLATE MOFETIL 500 MG TAB PO SCH (19:52)
[2017-07-20] MEDS: AZITHROMYCIN 500 MG/NS 250 ML IV SCH ×2 (22:35)
[2017-07-21] VITALS (10 sets, daily range): BP systolic 106–132; BP diastolic 43–66; PULSE 50–78; RESP 18–22; TEMP 97.7–98.4; O2SAT 93–97
[2017-07-21] MEDS: METOPROLOL TARTRATE 50 MG TAB PO SCH ×3 (00:01→21:00)
[2017-07-21] MEDS: PRAVASTATIN SOD 40 MG TAB PO SCH ×2 (00:01→23:38)
[2017-07-21] MEDS: hydrALAZINE HCL 25 MG TAB PO SCH ×3 (00:02→22:00)
[2017-07-21] MEDS: HEPARIN SODIUM - SQ 10,000 UNITS/ML VIAL SQ SCH ×2 (00:03→23:38)
[2017-07-21] MEDS: SALMETEROL XINAFOATE 50 MCG DISKUS INH SCH ×3 (00:03→21:00)
[2017-07-21] MEDS: FLUTICASONE PROPIONATE 44 MCG/ACT 10.6 GM INHALER INH SCH ×3 (00:04→21:00)
[2017-07-21] MEDS: LINEZOLID 600 MG PREMIX 300 ML IV SCH ×3 (00:04→23:58)
[2017-07-21] MEDS: PIPERACIL-TAZO 2.25 GM PREMIX 50 ML IV SCH ×4 (00:04→22:00)
[2017-07-21] MEDS: FAMOTIDINE 20 MG TAB PO SCH ×3 (03:58→23:37)
[2017-07-21] MEDS: SODIUM CHLOR 0.9% 1000 ML INJ 1,000 ML IV SCH ×2 (04:00→21:41)
[2017-07-21] MEDS: LEVOTHYROXINE SODIUM 50 MCG TAB PO SCH (06:21)
[2017-07-21] MEDS: MYCOPHENOLATE MOFETIL 500 MG TAB PO SCH (06:21)
[2017-07-21 07:14] LABS: AUTOMATED NEUTROPHIL # 6.7 TH/MM3 (1.8-7.7); BASOPHIL # 0.1 TH/MM3 (0-0.2); BASOPHIL % 0.7 % (0.0-2.0); EOSINOPHIL # 0.1 TH/MM3 (0-0.4); EOSINOPHIL % 1.3 % (0.0-4.0); HEMATOCRIT 24.5 % (35.0-46.0); HEMOGLOBIN 7.5 GM/DL (11.6-15.3); LYMPH % 8.5 % (9.0-44.0); LYMPHOCYTE # 0.7 TH/MM3 (1.0-4.8); MEAN CELL VOLUME 91.7 FL (80.0-100.0); MEAN CORPUSCULAR HGB CONC 30.5 % (32.0-36.0); MONO % 10.8 % (0.0-8.0); MONOCYTE # 0.9 TH/MM3 (0-0.9); NEUT % 78.7 % (16.0-70.0); PLATELET COUNT 206 TH/MM3 (150-450); RED BLOOD COUNT 2.67 MIL/MM3 (4.00-5.30); RED CELL DISTRIBUTION WIDTH 14.6 % (11.6-17.2); WHITE BLOOD COUNT 8.5 TH/MM3 (4.0-11.0)
--- NOTE | 2017-07-21 07:17 | HHI.NPPN ---
Subjective History of Present Illness Patient is a 56-year-old female with history of kidney transplant since 2000, she has renal cell cancer and has one kidney removed she has persistent nausea and vomiting and taking Phenergan and Zofran which is not working she came in with these complaints to the hospital and then her creatinine was 3.8, her baseline creatinine was 2.8- 2.6 last week She has a radical right nephrectomy for renal cell Cancer in May 2017 Additional Remarks not feeling well, forgetful, tired, edema pos Review of Systems General Constitutional: Fatigue Cardiovascular Cardiac: Edema Objective Data Data Vital Signs Date Time Temp Pulse Resp B/P (MAP) Pulse Ox O2 Delivery O2 Flow Rate FiO2 07/21/17 04:00 98.4 78 18 121/64 (83) 97 07/21/17 02:44 Nasal Cannula 2.00 07/20/17 23:53 96 Nasal Cannula 3.00 07/20/17 23:34 98.3 64 17 118/56 (76) 93 07/20/17 21:02 98.3 61 18 137/63 (87) 94 07/20/17 15:57 98.1 60 20 143/67 (92) 95 07/20/17 11:38 97.5 60 22 127/61 (83) 95 07/20/17 08:32 94 Nasal Cannula 3.00 -: 07/21/17 0601 07/20/17 0603 Microbiology 07/20/17 Aerobic Blood Culture, Received Pending 07/20/17 Anaerobic Blood Culture, Received Pending 07/20/17 Aerobic Blood Culture, Received Pending 07/20/17 Anaerobic Blood Culture, Received Pending Physical Exam General Appearance: Well Developed, Obese Neck Neck Exam: Neck Supple Pulmonary Resp Exam: Decreased Bases Cardiology CV Exam: Regular Gastrointestinal/Abdomen GI Exam: Soft, Non-Tender, Bowel Sounds Present Extremeties Extremities Exam: Moderate Edema Assessment/Plan Problem List: (1) EDITH (acute kidney injury) ICD Codes: N17.9 - Acute kidney failure, unspecified Status: Acute Plan: Patient has no improvement and dialysis is planned after P/C no response to fluids IVF rate at 42 cc/hr she is forgetful, has jerky movements, anemia, likely getting uremic Likely she has ATN or worsening chronic graft loss She may benefit from reducing Immunosuppression since has RCC diagnosed recently may stop Cellcept today follows with Dr. Velez over weekend Dr. Angeles will cover (2) Diabetes ICD Codes: E11.9 - Type 2 diabetes mellitus without complications Status: Chronic Plan: Monitor (3) HTN (hypertension) ICD Codes: I10 - Essential (primary) hypertension Status: Chronic (4) H/O kidney transplant ICD Codes: Z94.0 - Kidney transplant status Status: Acute Plan: Patient has a failing allograft Problem Qualifiers (1) Diabetes: Misha Phelan MD Jul 21, 2017 07:17
[2017-07-21 07:37] LABS: ALBUMIN 3.1 GM/DL (3.4-5.0); BICARBONATE 20.4 MEQ/L (21.0-32.0); CALCIUM 8.2 MG/DL (8.5-10.1); CREATININE 4.6 MG/DL (0.50-1.00)
[2017-07-21 07:38] LABS: PHOSPHORUS 5.9 MG/DL (2.5-4.9)
[2017-07-21 07:40] LABS: RANDOM VANCOMYCIN 13.8 COMMENT
[2017-07-21] MEDS: INSULIN ASPART SUPPLEMENTAL SCALE SQ SCH ×4 (08:00→21:00)
[2017-07-21] MEDS: MORPHINE SULFATE 2 MG/ML INJ IV PUSH PRN (08:42)
[2017-07-21] MEDS: CALCIUM/VITAMIN D 250 MG/125 U TAB PO SCH (08:45)
[2017-07-21] MEDS: HYDROCHLOROTHIAZIDE 25 MG TAB PO SCH (08:46)
[2017-07-21] MEDS: ASPIRIN EC 81 MG TABEC PO SCH (08:47)
[2017-07-21] MEDS: predniSONE 5 MG TAB PO SCH (08:47)
[2017-07-21] MEDS: amLODIPine BESYLATE 5 MG TAB PO SCH (08:48)
[2017-07-21] MEDS: SODIUM CHLORIDE 0.9% FLUSH 10 ML FLUSH IV FLUSH SCH ×2 (09:00→23:38)
--- NOTE | 2017-07-21 12:10 | HHI.PR ---
Subjective Remarks Blood pressure still low, however no symptoms of dizziness or lightheadedness And for Vas-Cath for dialysis Objective Vitals Vital Signs Date Time Temp Pulse Resp B/P (MAP) Pulse Ox O2 Delivery O2 Flow Rate FiO2 07/21/17 07:57 98.0 56 18 132/66 (88) 96 07/21/17 04:00 98.4 78 18 121/64 (83) 97 07/21/17 02:44 Nasal Cannula 2.00 07/20/17 23:53 96 Nasal Cannula 3.00 07/20/17 23:34 98.3 64 17 118/56 (76) 93 07/20/17 21:02 98.3 61 18 137/63 (87) 94 07/20/17 15:57 98.1 60 20 143/67 (92) 95 I/O 07/20/17 07/20/17 07/20/17 07/21/17 07/21/17 07/21/17 07:00 15:00 23:00 07:00 15:00 23:00 Intake Total 600 ml 480 ml 500 ml 50 ml Output Total 900 ml Balance 600 ml 480 ml -900 ml 500 ml 50 ml Intake Oral 480 ml IV Total 600 ml 500 ml 50 ml Output Urine Total 900 ml # Voids 1 Result Diagram: 07/21/17 0601 07/21/17 0601 Objective Remarks - - GENERAL: This is morbidly obese 56 years old female looks very fatigued, in no apparent distress. SKIN: No rashes, warm and dry HEAD: Atraumatic. Normocephalic. EYES: Pupils equal round and reactive. Extraocular motions intact. No scleral icterus. ENT: Nose without bleeding, or drainage, Airway patent. NECK: Trachea midline. Supple CARDIOVASCULAR: Sounds are distant due to body habitus Regular rate and rhythm without murmurs, gallops, or rubs. RESPIRATORY: Breath sounds distant due to body habitus No wheezes, rales, or rhonchi. Could be appreciated GASTROINTESTINAL: Abdomen soft, non-tender, nondistended. Positive bowel sounds MUSCULOSKELETAL: Extremities without clubbing, cyanosis, +1 edema. Pedal pulses appreciated NEUROLOGICAL: Awake and alert. Moves all extremity. Normal speech.no focal neurological deficit A/P Assessment and Plan 07/20: Creatinine continue to worsen from 3.89-4.07, I will consult ID to manage antibiotic considering patient is immunocompromised, appreciate nephrology consultation recommending decreasing her immunosuppressant medication , gentle iv hydration and going back on dialysis, probably Vas-Cath in a.m. 07/21: Hypotension, and symptomatic so far, will continue monitoring she may need suppressors if continue to be low, especially considering patient may go for hemodialysis A/P: 1. Acute on chronic kidney injury/renal cell carcinoma/status post nephrectomy and renal transplant Nephrology consulted, appreciate recommendations Recommend continuing immunosuppressive therapy secondary to patient's renal transplant Recommend IV fluid hydration Follow renal function 2. Hospital-acquired pneumonia CT of the abdomen/pelvis shows new bibasilar consolidating infiltrate and small bilateral effusions Vancomycin/Zosyn as patient was recently hospitalized Afebrile, no leukocytosis Continue supplemental oxygen, patient baseline on 2-3 L Duo nebs 3. Diabetes mellitus Blood glucose 151 this afternoon SSI, holding home Levemir as patient has not been able to tolerate anything by mouth Monitor blood glucose, continue home insulin once patient able to eat 4. Hypertension/hyperlipidemia/hypothyroidism Continue home medications Monitor blood pressure 5. Anemia Chronic, at baseline Monitor CBC Chris Nation MD Jul 21, 2017 12:10
[2017-07-21] MEDS: FERROUS SULFATE 325 MG (65 MG ELEMENTAL IRON) TAB PO SCH ×2 (12:46→17:00)
[2017-07-21] MEDS ORDERED: LORazepam 2 MG/ML VIAL ONE (13:57)
[2017-07-21] MEDS ORDERED: MIDAZOLAM HCL 2 MG/2 ML VIAL ONE (13:57)
[2017-07-21] MEDS ORDERED: LIDOCAINE 1%/EPINEPHrine 1:100,000 SOLN 20 ML VIAL ONE (14:00)
[2017-07-21] MEDS ORDERED: SODIUM BICARBONATE 8.4% INJ 50 ML ONE (14:17)
--- NOTE | 2017-07-21 14:37 | PD.RAD ---
Post Procedure Progress Note Pre Procedure Diagnosis: (1) Chronic kidney disease, stage IV (severe) (2) EDITH (acute kidney injury) Post Procedure Diagnosis: (1) EDITH (acute kidney injury) (2) Chronic kidney disease, stage IV (severe) Procedure Date: Jul 21, 2017 Supervising Radiologist: Idris Diaz Estimated blood loss: 3cc Anesthesia: Local, Conscious Sedation Plan of Activity Patient to Unit: Other Patient Condition: Poor Additional Comments: Right IJ permcath placed without difficulty. Catheter in good position OK for use. Full dictated report to follow See PACS Report for procedural detail/treatment Idris Diaz MD Jul 21, 2017 14:37
[2017-07-21] MEDS ORDERED: SODIUM CHLORIDE 0.9% FLUSH 10 ML FLUSH IV FLUSH PRN (14:45)
[2017-07-21] MEDS ORDERED: HEPARIN SODIUM - IV 2,000 UNITS/2 ML VIAL IV FLUSH PRN (14:45)
[2017-07-21 15:37] LABS: HEPATITIS A AB IGM NEGATIVE (NEGATIVE); HEPATITIS B CORE AB IGM NEGATIVE (NEGATIVE); HEPATITIS B SURFACE ANTIGEN NEGATIVE (NEGATIVE); HEPATITIS C AB IgG NEGATIVE (NEGATIVE)
--- NOTE | 2017-07-21 16:15 | RADRPT ---
EXAM DATE/TIME: 07/21/2017 14:47 [facility] COMPARISON: No previous studies available for comparison. INDICATIONS : Patient with chronic kidney disease in need of tunnelled dialysis catheter placement. MEDICAL HISTORY : HTN, HLD, CKD status post renal transplant, Renal cell carcinoma, Diabetes SURGICAL HISTORY : Right nephrectomy, Kidney transplant, Lumbar surgery, Cholecystectomy ENCOUNTER: Initial ACUITY: 1 week PAIN SCORE: 5/10 LOCATION: Mid-chest FLUORO TIME: 1.6 minutes IMAGE SERIES: 3 SEDATION TIME: 30 minutes ACCESS: Right internal jugular vein SEDATION: 1.) 1.5 mg midazolam (Versed) IV 2.) 25 mcg fentanyl (Sublimaze) IV 3.) 2mg lorazepam (Ativan) IV Prophylactic antibiotics were administered with appropriate pre-procedure timing. Vancomycin within 2 hours of procedure, Ancef (or alternative) within 1 hour of procedure. DEVICE: 1. 15 Pashto dual lumen 27 cm Kidd II Plus catheter PROCEDURE : 1. Ultrasound-guided venipuncture. 2. PermaCath placement. 3. Conscious sedation with continuous EKG and oximetry monitoring. The risks, benefits and alternatives to the procedure were explained and verbal and written consent w as obtained from the patient's . The site was prepped in sterile fashion. Full sterile techn ique was used, including cap, mask, sterile gloves and gown and a large sterile sheet. Hand hygiene and 2% chlorhexidine and/or betadine/alcohol prep was utilized per protocol for cutaneous antisepsis. Sterile gel and sterile probe cover were utilized for ultrasound guidance. The skin and subcutaneo us tissues were infiltrated with local anesthetic solution. With ultrasound and fluoroscopic guidance a dermatotomy was created over the prescribed vein. A micr opuncture set was used to access the targeted vein and serial dilatation was performed to accept the prescribed length catheter. A subcutaneous tunnel was created in a retrograde fashion the catheter w as pulled through the tunnel. The catheter was flushed and assembled and locked with heparin. The c atheter was sutured in place. Conscious sedation was performed with the prescribed dosages and duration as above in the presence of an independent trained radiology nurse to assist in the monitoring of the patient. EKG and oximetry remained stable throughout the procedure. The patient tolerated the procedure well and there were n o complications. The patient was sent to post anesthesia recovery in stable condition. CONCLUSION: Uncomplicated PermaCath placement as above. Idris Diaz MD on July 21, 2017 at 16:11 Board Certified Radiologist. This report was verified electronically.
[2017-07-21] MEDS: HEPARIN SODIUM - IV 10,000 UNITS/10 ML VIAL PRN (18:42)
[2017-07-21] MEDS: EPOETIN ALFA 10,000 UNITS/ML VIAL IV PUSH PRN (18:42)
[2017-07-21] MEDS: MANNITOL 12.5 GM/50 ML VIAL IV PRN (18:42)
[2017-07-21] MEDS: GENTAMICIN SULFATE (DIALYSIS USE ONLY) 20 MG/2 ML VIAL OTHER PRN (18:42)
[2017-07-21] MEDS: ALBUMIN 25% INJ 100 ML IV PRN (18:43)
--- NOTE | 2017-07-21 19:06 | HHI.IDPN ---
Subjective Subjective Remarks pt was seen in dyalysis she is completely obtunded, barely responsive to sternal rub She is sp permcath placement earlier today BP on arrival 90 s afebrile receiving HD Antibiotics zithromax zyvox zosyn Past Medical History ESRD renla allograft renal cell carcinoma May 2017 radical right nephrectomy for renal cell Cancer in May 2017 Allergies: Coded Allergies: adhesive (Unverified Allergy, Severe, SILK TAPE, 07/07/17) NSAIDS (Non-Steroidal Anti-Inflamma (Verified Adverse Reaction, Severe, Nausea/Vomiting, 07/07/17) Objective . Vital Signs Date Time Temp Pulse Resp B/P (MAP) Pulse Ox O2 Delivery O2 Flow Rate FiO2 07/21/17 18:42 95 Nasal Cannula 3.00 07/21/17 15:00 53 20 116/46 (69) 95 07/21/17 14:45 97.8 53 20 112/43 (66) 97 07/21/17 12:53 97.7 54 18 106/51 (69) 97 07/21/17 12:45 51 07/21/17 09:15 Nasal Cannula 3.00 07/21/17 08:00 55 07/21/17 07:57 98.0 56 18 132/66 (88) 96 07/21/17 04:00 98.4 78 18 121/64 (83) 97 07/21/17 02:44 Nasal Cannula 2.00 07/20/17 23:53 96 Nasal Cannula 3.00 07/20/17 23:34 98.3 64 17 118/56 (76) 93 07/20/17 21:02 98.3 61 18 137/63 (87) 94 07/21/17 07/21/17 07/22/17 15:00 23:00 07:00 Intake Total 50 ml Balance 50 ml IV Total 50 ml . Laboratory Tests Test 07/20/17 06:03 07/21/17 06:01 White Blood Count 9.0 TH/MM3 8.5 TH/MM3 Red Blood Count 2.79 MIL/MM3 2.67 MIL/MM3 Hemoglobin 7.9 GM/DL 7.5 GM/DL Hematocrit 25.5 % 24.5 % Mean Corpuscular Volume 91.2 FL 91.7 FL Mean Corpuscular Hemoglobin 28.5 PG 28.0 PG Mean Corpuscular Hemoglobin Concent 31.2 % 30.5 % Red Cell Distribution Width 14.4 % 14.6 % Platelet Count 198 TH/MM3 206 TH/MM3 Mean Platelet Volume 8.0 FL 8.0 FL Neutrophils (%) (Auto) 80.5 % 78.7 % Lymphocytes (%) (Auto) 6.9 % 8.5 % Monocytes (%) (Auto) 10.4 % 10.8 % Eosinophils (%) (Auto) 1.4 % 1.3 % Basophils (%) (Auto) 0.8 % 0.7 % Neutrophils # (Auto) 7.2 TH/MM3 6.7 TH/MM3 Lymphocytes # (Auto) 0.6 TH/MM3 0.7 TH/MM3 Monocytes # (Auto) 0.9 TH/MM3 0.9 TH/MM3 Eosinophils # (Auto) 0.1 TH/MM3 0.1 TH/MM3 Basophils # (Auto) 0.1 TH/MM3 0.1 TH/MM3 CBC Comment AUTO DIFF DIFF FINAL Differential Total Cells Counted 100 Neutrophils % (Manual) 71 % Band Neutrophils % 4 % Lymphocytes % 7 % Monocytes % 15 % Eosinophils % 1 % Basophils % 2 % Neutrophils # (Manual) 6.8 TH/MM3 Differential Comment FINAL DIFF MANUAL Platelet Estimate NORMAL Platelet Morphology Comment NORMAL Basophilic Stippling FAINT Ovalocytes 1+ Acanthocytes OCC Keratocytes OCC Laboratory Tests Test 07/20/17 06:03 07/21/17 06:01 Blood Urea Nitrogen 89 MG/DL 93 MG/DL Creatinine 4.07 MG/DL 4.60 MG/DL Random Glucose 149 MG/DL 212 MG/DL Calcium Level 8.6 MG/DL 8.2 MG/DL Sodium Level 136 MEQ/L 137 MEQ/L Potassium Level 5.0 MEQ/L 5.0 MEQ/L Chloride Level 105 MEQ/L 104 MEQ/L Carbon Dioxide Level 20.9 MEQ/L 20.4 MEQ/L Anion Gap 10 MEQ/L 13 MEQ/L Estimat Glomerular Filtration Rate 11 ML/MIN 10 ML/MIN Albumin 3.1 GM/DL Phosphorus Level 5.9 MG/DL Microbiology Date/Time Source Procedure Growth Status 07/20/17 21:46 Blood Peripheral Aerobic Blood Culture - Preliminary NO GROWTH IN 1 DAY Resulted 07/20/17 21:46 Blood Peripheral Anaerobic Blood Culture - Preliminary NO GROWTH IN 1 DAY Resulted 07/20/17 21:40 Blood Peripheral Aerobic Blood Culture - Preliminary NO GROWTH IN 1 DAY Resulted 07/20/17 21:40 Blood Peripheral Anaerobic Blood Culture - Preliminary NO GROWTH IN 1 DAY Resulted Imaging Last Impressions Catheter Placement X-Ray 07/21/17 0000 Signed Impressions: Service Date/Time: Friday, July 21, 2017 14:47 - CONCLUSION: Uncomplicated PermaCath placement as above. Idris Diaz MD Chest X-Ray 07/19/17 0000 Signed Impressions: Service Date/Time: Wednesday, July 19, 2017 16:37 - CONCLUSION: Bibasilar airspace disease with possible bilateral effusions. Mild cardiomegaly. Schuyler Saucedo MD Abdomen/Pelvis CT 07/19/17 0000 Signed Impressions: Service Date/Time: Wednesday, July 19, 2017 16:25 - CONCLUSION: 1. Status post right nephrectomy with no acute findings in the right renal fossa. 2. New bibasilar consolidating infiltrate and small bilateral effusions. 3. Anasarca 4. 3 cm left renal mass; unchanged. 5. Status post cholecystectomy. Schuyler Saucedo MD Physical Exam CONSTITUTIONAL/GENERAL: This is a morbidly obese patient, in no apparent distress. Obtunded. Apperaing ill TUBES/LINES/DRAINS: SKIN: No jaundice, rashes, or lesions. Skin temperature appropriate. Not diaphoretic. HEAD: Atraumatic. Normocephalic. EYES: Pupils equal and round and reactive. Extraocular motions intact. No scleral icterus. No injection or drainage. Fundi not examined. ENT: Hearing grossly normal. Nose without bleeding or purulent drainage. Throat without visible erythema, exudates, masses, or lesions. CARDIOVASCULAR: Regular rate and rhythm without murmurs, gallops, or rubs. No JVD. Peripheral pulses symmetric. RESPIRATORY/CHEST: Symmetric, unlabored respirations. Clear to auscultation. Breath sounds equal bilaterally. No wheezes, rales, or rhonchi. GASTROINTESTINAL: Abdomen soft, non-tender, nondistended Its markely obese and degree of obesty preculdes examination of organomegaly, or palpable masses. No guarding. Bowel sounds present. MUSCULOSKELETAL: Extremities without clubbing, cyanosis, or edema. No joint tenderness or effusion noted. No calf tenderness. No mottling or clubbing. LYMPHATICS: No palpable cervical or supraclavicular adenopathy. NEUROLOGICAL: Obtunded not responding to sternal rub Eyes closed. Not follows commands. PSYCHIATRIC:unable to assess Assessment & Plan Remarks PNA ARF/CKD, transpalnt failure starte on HD Permacath placed 07/21 Immunosuppresed Renal allograft Renal ca sp R nephrectomy 2 mos ago avoid neprotoxins: will dc vancomycin cont IV zyvox cont zosyn cont zithromax chk sputum clx chk flu/leg / penumococcus Transfer pt to ICU consult pupil personnel services director Geena Mann Dr, RN, MD Jul 21, 2017 19:05
[2017-07-21] MEDS ORDERED: CHLORHEXIDINE GLUCONATE 2 % 1 PACK (2 CLOTHS)(extra cloths) TOPICAL PRN (21:00)
[2017-07-21] MEDS: AZITHROMYCIN 500 MG/NS 250 ML IV SCH ×2 (23:37)
[2017-07-22] VITALS (30 sets, daily range): BP systolic 123–181; BP diastolic 62–96; PULSE 50–70; RESP 11–32; TEMP 97.6–98.6; O2SAT 89–100
[2017-07-22] MEDS: AZITHROMYCIN 500 MG/NS 250 ML IV SCH ×2 (00:55)
[2017-07-22] MEDS: PIPERACIL-TAZO 2.25 GM PREMIX 50 ML IV SCH ×5 (02:00→23:27)
--- NOTE | 2017-07-22 03:20 | PD.CONS ---
[facility] Service Critical Care Medicine Consult Requested By [facility] Reason for Consult Encephalopathy, airway precautions Primary Care Physician Iván Becerra MD History of Present Illness I was asked to see patient this evening due to excessive somnolence. She was protecting her airway adequately but otherwise unresponsive except to loud voice or noxious stimulation. She was just started back on dialysis after a renal transplant failed. She has a past medical history of hypertension, hyperlipidemia, depression, morbid obesity, CKD status post renal transplant, renal cell carcinoma status post right nephrectomy, diabetes mellitus and sleep apnea. She presented to the ER 2 days ago with persistent vomiting despite home medication with Zofran and Phenergan. Patient also complains of generalized abdominal pain, worst in the epigastric region. She was discharged from the hospital on 07/13 where she was treated for acute on chronic kidney injury, generalized weakness and hyperkalemia. She is chronically on 2-3 L nasal cannula at home with a history of asthma. She denies any fever/chills. H&H 7.6 /23.8 which is approximately patient's baseline. BUN/creatinine 86/3.89, patient's creatinine 2.66 on 07/13. Chest x-ray showed bibasilar airspace disease with possible bilateral pleural effusions. CT of the abdomen/pelvis with new bibasilar consolidating infiltrate and 3 cm left renal mass which is unchanged from previous. Presently, her respiratory effort is satisfactory and she controls her airway. Major concern is for CO2 retention. Review of Systems ROS Unable to respond. No family. Past Family Social History Allergies: Coded Allergies: adhesive (Unverified Allergy, Severe, SILK TAPE, 07/07/17) NSAIDS (Non-Steroidal Anti-Inflamma (Verified Adverse Reaction, Severe, Nausea/Vomiting, 07/07/17) Past Medical History Past Medical History Arthritis: Yes Asthma: Yes Anxiety: Yes Depression: Yes Heart Rhythm Problems: No Cancer: Yes (RENAL CELL CARCINOMA) Cardiovascular Problems: Yes High Cholesterol: Yes COPD: Yes Diabetes: Yes Patient Takes Glucophage: No Diminished Hearing: No Endocrine: Yes (Diabetes) Gastrointestinal Disorders: Yes (Nausea) Genitourinary: Yes Hepatitis: No Hiatal Hernia: No Hypertension: Yes Immune Disorder: Yes (On anti-rejection medication for kidney transplantation) Kidney Stones: No Musculoskeletal: Yes (Charcot fractures in feet) Neurologic: No Psychiatric: Yes Reproductive: Yes Respiratory: Yes Renal Failure: Yes Sickle Cell Disease: No Sleep Apnea: Yes (NO CPAP) Thyroid Disease: No Ulcer: No Tetanus Vaccination: Unknown : 2 Para: 1 Miscarriage: 1 Past Surgical History Abdominal Surgery: Yes (Nephrectomy and with son) AICD: No Arteriovenous Shunt: No Body Medical Devices: kidney Cardiac Surgery: No Section: Yes Cholecystectomy: Yes Ear Surgery: No Endocrine Surgery: No Genitourinary Surgery: Yes (R NEPHRECTOMY) Gynecologic Surgery: Yes ( with son) Neurologic Surgery: Yes (Fused lumbar spine) Tonsillectomy: Yes Other Surgery: Yes (KIDNEY TRANSPLANT X 2 2000 HUSBANDS; REMOVAL 2016) Social History Alcohol Use: Yes (SOCIALLY) Tobacco Use: No Substance Use: No Allergies-Medications Allergies-Medications (Allergen,Severity, Reaction): Coded Allergies: adhesive (Unverified Allergy, Severe, SILK TAPE, 07/07/17) NSAIDS (Non-Steroidal Anti-Inflamma (Verified Adverse Reaction, Severe, Nausea/Vomiting, 07/07/17) Reported Meds & Prescriptions Reported Meds & Active Scripts Active Neoral (Cyclosporine (Modified)) 25 Mg Cap 75 Mg PO BID@06,18 Synthroid (Levothyroxine Sodium) 50 Mcg Tab 50 Mcg PO DAILY@0600 Levemir Inj (Insulin Detemir) 1,000 unit/ 10 ML Vial 4 Units SQ HS Do not mix with any other Insulin. Novolog Inj (Insulin Aspart) 1,000 Unit/10 Ml Vial 4 Units SQ DAILY@1200 Novolog Inj (Insulin Aspart) 1,000 Unit/10 Ml Vial 4 Units SQ DAILY@17 Hydrochlorothiazide 25 Mg Tab 25 Mg PO DAILY Hydralazine HCl 25 Mg Tablet 50 Mg PO Q8HR Doxycycline Hyclate 100 Mg Cap 100 Mg PO BID Levemir Inj (Insulin Detemir) 1,000 unit/ 10 ML Vial 50 Units SQ DAILYAC 30 Days Do not mix with any other Insulin. Phenergan (Promethazine HCl) 25 Mg Tablet 25 Mg PO Q6H PRN Novolog Inj (Insulin Aspart) 1,000 Unit/10 Ml Vial 1-9 Units SQ ACHS Max dose at bedtime:( )units; sugars less than 70,(0)units; sugars 150-199,(1) unit; sugars 200-249,(3) units; sugars 250-299,(5) units; sugars 300-349,(7) units; sugars greater than 349,(9) units Insulin Syringe/U-100/31G X 12/20" 1 ml 31 Gauge X 12/20" Mis Ea .ROUTE DIRECTED Metoprolol Tartrate 50 Mg Tab 50 Mg PO BID Hydrocodone-Acetaminophen 5-325 mg Tab 1 Tab PO Q8HR PRN Ferosul (Ferrous Sulfate) 325 Mg (65 Mg Iron) Tablet 325 Mg PO BID@,17 30 Days Senna Plus 8.6-50 mg (Sennosides-Docusate Sodium) 8.6 Mg-50 Mg Tab 1 Tab PO BID 30 Days Norvasc (Amlodipine Besylate) 5 Mg Tab 10 Mg PO DAILY Zofran Odt (Ondansetron Odt) 4 Mg Tab 4 Mg SL Q6HR PRN Zoloft (Sertraline HCl) 100 Mg Tab 200 Mg PO DAILY Flovent Hfa 10.6 GM Inh (Fluticasone Propionate) 44 Mcg/Act Inh 2 Puff INH BID Use daily at the same time. Serevent Diskus Inh (Salmeterol Xinafoate) 50 Mcg/Act Aero 50 Mcg INH BID Ventolin Hfa 18 GM Inh (Albuterol Sulfate) 90 Mcg/Act Aer 2 Puff INH Q4H PRN Calcium 500 + Vit D Caplet (Calcium Carbonate/Vitamin D3) 1 Each Tablet 1 Cap PO BIDPC 30 Days Womens Daily Formula (Multiple Vitamins W/ Minerals) 1 Tab Tab 1 Cap PO DAILY 30 Days Aspir-81 (Aspirin) 81 Mg Tabdr 81 Mg PO DAILY 30 Days Zocor (Simvastatin) 20 Mg Tab 20 Mg PO HS Pepcid (Famotidine) 20 Mg Tab 20 Mg PO BID Prednisone 5 Mg Tab 5 Mg PO DAILY 30 Days Cellcept (Mycophenolate Mofetil) 500 Mg Tab 500 Mg PO BID Physical Exam Vital Signs Vital Signs Date Time Temp Pulse Resp B/P (MAP) Pulse Ox O2 Delivery O2 Flow Rate FiO2 07/22/17 02:00 51 07/22/17 00:00 98.4 50 11 123/66 (85) 94 07/22/17 00:00 50 07/21/17 22:00 50 07/21/17 20:00 98.3 52 22 109/51 (70) 93 07/21/17 20:00 50 07/21/17 18:42 95 Nasal Cannula 3.00 07/21/17 15:00 53 20 116/46 (69) 95 07/21/17 14:45 97.8 53 20 112/43 (66) 97 07/21/17 12:53 97.7 54 18 106/51 (69) 97 07/21/17 12:45 51 07/21/17 09:15 Nasal Cannula 3.00 07/21/17 08:00 55 07/21/17 07:57 98.0 56 18 132/66 (88) 96 07/21/17 04:00 98.4 78 18 121/64 (83) 97 Physical Exam PE: GENERAL: Morbidly obese, largely unresponsive woman. SKIN: Warm and dry. HEAD: Atraumatic. Normocephalic. EYES: Pupils 2 mm, equal round and reactive. Extraocular motions intact ENT: Throat without erythema. Airway widely patent. NECK: Trachea midline. Supple, nontender, no meningeal signs. CARDIOVASCULAR: Regular rate and rhythm without murmurs, rub. No JVD but exam difficult due to adipose. RESPIRATORY: Clear to auscultation. Breath sounds equal bilaterally. No wheezes , rales, or rhonchi. Decreased both bases. GASTROINTESTINAL: Abdomen very large; soft, nontender, nondistended. Fixed mass in hernia right side, nontender. BS active. No peritoneal irritation. MUSCULOSKELETAL: Bilateral LE edema, chronic. Well perfused. NEUROLOGICAL: Somnolent, difficult to get reaction. Grunts to very loud voice. Laboratory Laboratory Tests Test 07/21/17 06:01 07/21/17 20:45 07/21/17 21:48 White Blood Count 8.5 Red Blood Count 2.67 Hemoglobin 7.5 Hematocrit 24.5 Mean Corpuscular Volume 91.7 Mean Corpuscular Hemoglobin 28.0 Mean Corpuscular Hemoglobin Concent 30.5 Red Cell Distribution Width 14.6 Platelet Count 206 Mean Platelet Volume 8.0 Neutrophils (%) (Auto) 78.7 Lymphocytes (%) (Auto) 8.5 Monocytes (%) (Auto) 10.8 Eosinophils (%) (Auto) 1.3 Basophils (%) (Auto) 0.7 Neutrophils # (Auto) 6.7 Lymphocytes # (Auto) 0.7 Monocytes # (Auto) 0.9 Eosinophils # (Auto) 0.1 Basophils # (Auto) 0.1 CBC Comment DIFF FINAL Differential Comment Blood Urea Nitrogen 93 Creatinine 4.60 Random Glucose 212 Albumin 3.1 Calcium Level 8.2 Phosphorus Level 5.9 Sodium Level 137 Potassium Level 5.0 Chloride Level 104 Carbon Dioxide Level 20.4 Anion Gap 13 Estimat Glomerular Filtration Rate 10 Random Vancomycin Level 13.8 Nasal Screen MRSA (PCR) MRSA NOT DETECTED Lactic Acid Level 0.7 Date/Time Source Procedure Growth Status 07/20/17 21:46 Blood Peripheral Aerobic Blood Culture - Preliminary NO GROWTH IN 1 DAY Resulted 07/20/17 21:46 Blood Peripheral Anaerobic Blood Culture - Preliminary NO GROWTH IN 1 DAY Resulted Result Diagram: 07/21/17 0607/21/17 0601 Assessment and Plan Assessment and Plan Assessment: 1. Encephalopathy. 2. Obesity hypoventilation syndrome. 3. Failed renal transplant. Plan: 1. STAT ABG. 2. NPO. 3. Maintain sats 88-94%. 4. Will probably require intubation. Overal impression: Deteriorating neurological function, nonfocal exam. Suspect CO2 retention. Critically ill, hypercarbic respiratory failure. Critical Care 38 mins aside from procedures Andry Cheatham MD Jul 22, 2017 03:20
[2017-07-22] MEDS: CHLORHEXIDINE GLUCONATE 2 % 1 PACK (2 CLOTHS)(taper/protocol) TOPICAL SCH (04:00)
--- NOTE | 2017-07-22 04:58 | PD.PROCEDR ---
Procedure Note Procedure DX: Hypercapneic Respiratory Failure (J96.02) OP: Orotracheal Intubation (61992) Procedure: Bag mask ventilation. Propofol 10 mls ivp. Intubated orally with 8.0 tube. Position confirmed with CO2 detection, breath sounds, sats 100%. CXR ordered, will review. Andry Cheatham MD Jul 22, 2017 04:58
[2017-07-22] MEDS: LEVOTHYROXINE SODIUM 50 MCG TAB PO SCH (06:18)
[2017-07-22] MEDS: HEPARIN SODIUM - SQ 10,000 UNITS/ML VIAL SQ SCH ×3 (06:19→23:30)
[2017-07-22] MEDS: hydrALAZINE HCL 25 MG TAB PO SCH ×3 (06:52→23:29)
[2017-07-22 07:13] LABS: AUTOMATED NEUTROPHIL # 4.3 TH/MM3 (1.8-7.7); BASOPHIL % 0.4 % (0.0-2.0); EOSINOPHIL # 0.1 TH/MM3 (0-0.4); EOSINOPHIL % 1.3 % (0.0-4.0); HEMATOCRIT 21.9 % (35.0-46.0); LYMPH % 8.7 % (9.0-44.0); LYMPHOCYTE # 0.5 TH/MM3 (1.0-4.8); MEAN CELL VOLUME 91.2 FL (80.0-100.0); MEAN CORPUSCULAR HEMOGLOBIN 28.8 PG (27.0-34.0); MEAN CORPUSCULAR HGB CONC 31.6 % (32.0-36.0); MEAN PLATELET VOLUME 8.3 FL (7.0-11.0); MONO % 11.1 % (0.0-8.0); MONOCYTE # 0.6 TH/MM3 (0-0.9); NEUT % 78.5 % (16.0-70.0); PLATELET COUNT 150 TH/MM3 (150-450); RED CELL DISTRIBUTION WIDTH 14.8 % (11.6-17.2); WHITE BLOOD COUNT 5.4 TH/MM3 (4.0-11.0)
[2017-07-22 07:21] LABS: BICARBONATE 24.7 MEQ/L (21.0-32.0); CALCIUM 8.3 MG/DL (8.5-10.1); CREATININE 4.06 MG/DL (0.50-1.00)
[2017-07-22 07:21] LABS: HEMOGLOBIN 6.9 GM/DL (11.6-15.3)
--- NOTE | 2017-07-22 07:38 | HHI.CCPN ---
Subjective Remarks/Hospital Course I was asked to see patient this evening due to excessive somnolence. She was protecting her airway adequately but otherwise unresponsive except to loud voice or noxious stimulation. She was just started back on dialysis after a renal transplant failed. She has a past medical history of hypertension, hyperlipidemia, depression, morbid obesity, CKD status post renal transplant, renal cell carcinoma status post right nephrectomy, diabetes mellitus and sleep apnea. She presented to the ER 2 days ago with persistent vomiting despite home medication with Zofran and Phenergan. Patient also complains of generalized abdominal pain, worst in the epigastric region. She was discharged from the hospital on 07/13 where she was treated for acute on chronic kidney injury, generalized weakness and hyperkalemia. She is chronically on 2-3 L nasal cannula at home with a history of asthma. She denies any fever/chills. H&H 7.6 /23.8 which is approximately patient's baseline. BUN/creatinine 86/3.89, patient's creatinine 2.66 on 07/13. Chest x-ray showed bibasilar airspace disease with possible bilateral pleural effusions. CT of the abdomen/pelvis with new bibasilar consolidating infiltrate and 3 cm left renal mass which is unchanged from previous. Presently, her respiratory effort is satisfactory and she controls her airway. Major concern is for CO2 retention. Subjective 07/22: Currently orotracheally intubated. On low dose propofol drip at 10 mcg/ kg per minute. Arousable on the ventilator and appointments. Will initiate tube feeding today. Objective Vital Signs Date Time Temp Pulse Resp B/P (MAP) Pulse Ox O2 Delivery O2 Flow Rate FiO2 07/22/17 05:48 98.6 51 17 133/62 (85) 91 07/22/17 04:45 30 07/21/17 18:42 Nasal Cannula 3.00 Intake and Output 07/22/17 07/22/17 07/23/17 08:00 16:00 00:00 Intake Total 250 ml Balance 250 ml Result Diagram: 07/22/17 0557 07/22/17 0551 Other Results Microbiology Date/Time Source Procedure Growth Status 07/20/17 21:46 Blood Peripheral Aerobic Blood Culture - Preliminary NO GROWTH IN 1 DAY Resulted 07/20/17 21:46 Blood Peripheral Anaerobic Blood Culture - Preliminary NO GROWTH IN 1 DAY Resulted Imaging Last Impressions Catheter Placement X-Ray 07/21/17 0000 Signed Impressions: Service Date/Time: Friday, July 21, 2017 14:47 - CONCLUSION: Uncomplicated PermaCath placement as above. Idris Diaz MD Chest X-Ray 07/19/17 0000 Signed Impressions: Service Date/Time: Wednesday, July 19, 2017 16:37 - CONCLUSION: Bibasilar airspace disease with possible bilateral effusions. Mild cardiomegaly. Schuyler Saucedo MD Abdomen/Pelvis CT 07/19/17 0000 Signed Impressions: Service Date/Time: Wednesday, July 19, 2017 16:25 - CONCLUSION: 1. Status post right nephrectomy with no acute findings in the right renal fossa. 2. New bibasilar consolidating infiltrate and small bilateral effusions. 3. Anasarca 4. 3 cm left renal mass; unchanged. 5. Status post cholecystectomy. Schuyler Saucedo MD Objective Remarks GENERAL: 56-year-old female, resting in bed orotracheally intubated SKIN: Warm and dry. HEAD: Atraumatic. Normocephalic. EYES: Pupils 2 mm, equal round and reactive. Extraocular motions intact ENT: Throat without erythema. Airway widely patent. NECK: Trachea midline. Supple, nontender, right IJ tunneled cuffed catheter in place for hemodialysis CARDIOVASCULAR: Bradycardic, RR. S1, S2 no S4. Without murmurs, clicks, gallops or rub. No JVD but exam difficult due to obesity. RESPIRATORY: Clear to auscultation. Breath sounds equal bilaterally. No wheezes , rales, or rhonchi. Diminished throughout. GASTROINTESTINAL: Abdomen very large; soft, nontender, nondistended. Fixed mass in hernia right side, nontender. BS active. MUSCULOSKELETAL: Bilateral trace to 1+ LE edema, chronic. Well perfused. NEUROLOGICAL: Cranial nerves II through XII appear grossly intact. Positive gag and corneal reflex. Withdraws to pain in all 4 extremities on sedation currently A/P Assessment and Plan Neuro/Psych: Acute toxic metabolic encephalopathy Depression disorder NOS Currently on propofol/fentanyl drips for sedation/analgesia while intubated Goal of RA SS -2 Daily sedation vacation Holding sertraline 200 mg by mouth daily for depression. While on linezolid. Resume when clinically indicated CV: Hypertension Dyslipidemia Currently on amlodipine 10 mg daily, hydralazine 50 mg every 8 hours, HCTZ 25 mg daily and metoprolol 50 mg by mouth twice a day for hypertension. Currently on Pravachol 40 mg daily for dyslipidemia. Currently normal saline at 42 cc an hour Resp: Acute on chronic hypoxemic respiratory failure Chronic O2 to 3 L at home History of asthma PRVC 18/550/0.9/5/30 Ventilator bundle Albuterol/ipratropium aerosols every 4 hours with albuterol aerosols every 2 hours. Dyspnea Add budesonide 0.5/2 1 inhalation twice a day On fluticasone 44 g 2 puffs twice a day and salmeterol 50 g inhaled twice a day at home Follow-up ABG/a.m. chest x-ray GI: Hypoalbuminemia Initiate tube feeding with Suplena goal 55 cc an hour. Famotidine for GI prophylaxis Docusate sodium/senna 1 tablet twice a day for bowel regimen : Maintain Grant catheter Endo: Diabetes mellitus HypoThyroidism Currently on insulin detemir 5 units twice a day with Novulog sliding scale insulin every 6 hours to maintain euglycemia On detemir 50 units in a.m. 4 units at night at home along with insulin Aspart sliding scale insulin Continue levothyroxine 50 mcg by mouth daily for hypothyroidism. Check TSH in a.m. Renal: History renal cell cancer 3 cm left renal mass Status post right nephrectomy May 2017 for renal cell carcinoma Failing autologous renal transplant on chronic immunosuppression Currently on cyclosporine 75 mg twice a day. Holding CellCept 500 mg twice a day. Currently receiving hemodialysis per Dr. Phelan yesterday 07/21. Plan for today Follow creatinine daily. Heme: Anemia of chronic kidney disease Continue iron sulfate 325 mg twice a day Serial hemoglobins daily. Menses keep hemoglobin greater than 7 ID: Pneumonia Currently on linezolid, azithromycin and piperacillin/tazobactam Blood cultures / no growth CMV pending Ordered sputum, influenza A today Infectious disease following FEN: Hyperphosphatemia Initiate phosphate binder Replace electrolytes as clinically indicated MSK: Elevated BMI greater than 50 Charcot foot Weight loss encouraged. PT evaluate and treat Access - Utilize peripheral IV. Central line if indicated Prophylaxis - GI - famotidine -DVT- SCD/heparin subcutaneous Additional 25 minutes critical care time Mahendra Barrios MD Jul 22, 2017 07:38
[2017-07-22] MEDS: CHLORHEXIDINE 0.12% (ORAL KIT) 15 ML CUP MT SCH ×2 (08:00→23:27)
[2017-07-22] MEDS ORDERED: hydrALAZINE HCL 20 MG/ML VIAL IV PUSH PRN (08:15)
[2017-07-22] MEDS ORDERED: LABETALOL HCL 100 MG/20 ML VIAL IV PUSH PRN (08:15)
[2017-07-22] MEDS ORDERED: NITROGLYCERIN 2% OINT 1 GM PACKET TOPICAL PRN (08:15)
[2017-07-22] MEDS: INSULIN DETEMIR 100 UNITS/ML VIAL SQ SCH ×2 (09:00→21:00)
[2017-07-22] MEDS: SALMETEROL XINAFOATE 50 MCG DISKUS INH SCH ×2 (09:00→21:00)
[2017-07-22] MEDS: LINEZOLID 600 MG PREMIX 300 ML IV SCH ×2 (09:14→23:26)
[2017-07-22] MEDS: CALCIUM ACETATE 667 MG CAP PO SCH ×3 (09:15→18:06)
[2017-07-22] MEDS: amLODIPine BESYLATE 5 MG TAB PO SCH (09:15)
[2017-07-22] MEDS: FAMOTIDINE 20 MG TAB PO SCH ×2 (09:15→23:29)
[2017-07-22] MEDS: predniSONE 5 MG TAB PO SCH (09:15)
[2017-07-22] MEDS: ASPIRIN EC 81 MG TABEC PO SCH (09:15)
[2017-07-22] MEDS: CALCIUM/VITAMIN D 250 MG/125 U TAB PO SCH ×2 (09:15→18:06)
[2017-07-22] MEDS: METOPROLOL TARTRATE 50 MG TAB PO SCH ×2 (09:16→23:28)
[2017-07-22] MEDS: HYDROCHLOROTHIAZIDE 25 MG TAB PO SCH (09:16)
[2017-07-22] MEDS: SODIUM CHLORIDE 0.9% FLUSH 10 ML FLUSH IV FLUSH SCH ×2 (09:17→21:00)
[2017-07-22] MEDS: RESP: ALBUTEROL 2.5 MG/IPRATROPIUM 0.5 MG NEB (SCH) NEB ×5 (09:33→23:41)
[2017-07-22] MEDS: RESP: BUDESONIDE 0.5 MG/2 ML NEB NEB SCH ×2 (09:33→20:04)
[2017-07-22] MEDS: HEPARIN SODIUM - IV 10,000 UNITS/10 ML VIAL PRN (10:05)
[2017-07-22] MEDS: GENTAMICIN SULFATE (DIALYSIS USE ONLY) 20 MG/2 ML VIAL OTHER PRN (10:06)
[2017-07-22] MEDS: EPOETIN ALFA 10,000 UNITS/ML VIAL IV PUSH PRN (10:06)
--- NOTE | 2017-07-22 11:30 | HHI.NPPN ---
Subjective History of Present Illness Patient is a 56-year-old female with history of kidney transplant since 2000, she has renal cell cancer and has one kidney removed she has persistent nausea and vomiting and taking Phenergan and Zofran which is not working she came in with these complaints to the hospital and then her creatinine was 3.8, her baseline creatinine was 2.8- 2.6 last week She has a radical right nephrectomy for renal cell Cancer in May 2017 Additional Remarks Patient is now intubated and sedated, seen after the HD. Review of Systems General Constitutional: Fatigue Cardiovascular Cardiac: Edema Objective Data Data 07/22/17 07/23/17 19:00 07:00 Output Total 4675 ml Balance -4675 ml Output Urine Total 175 ml Stool Total 0 ml Hemodialysis 4500 ml Vital Signs Date Time Temp Pulse Resp B/P (MAP) Pulse Ox O2 Delivery O2 Flow Rate FiO2 07/22/17 11:04 92 30 07/22/17 08:14 93 30 07/22/17 06:00 51 07/22/17 05:48 98.6 51 17 133/62 (85) 91 07/22/17 04:45 30 07/22/17 04:45 93 30 07/22/17 04:00 51 07/22/17 02:00 51 07/22/17 01:48 98.6 57 14 132/72 (92) 96 07/22/17 00:00 98.4 50 11 123/66 (85) 94 07/22/17 00:00 50 07/21/17 22:00 50 07/21/17 20:00 98.3 52 22 109/51 (70) 93 07/21/17 20:00 50 07/21/17 18:42 95 Nasal Cannula 3.00 07/21/17 15:00 53 20 116/46 (69) 95 07/21/17 14:45 97.8 53 20 112/43 (66) 97 07/21/17 12:53 97.7 54 18 106/51 (69) 97 07/21/17 12:45 51 -: 07/22/17 0557 07/22/17 0551 Microbiology 07/22/17 Gram Stain, Received Pending 07/22/17 Sputum Culture, Received Pending Physical Exam General Appearance: Obese Appearance Remarks Intubated and sedated. Neck Neck Exam: Neck Supple Pulmonary Resp Exam: Crackles, Rhonchi, Decreased Bases, Diminished Breath Sounds Cardiology CV Exam: Regular Gastrointestinal/Abdomen GI Exam: Soft, Non-Tender, Bowel Sounds Present Extremeties Extremities Exam: Moderate Edema Neurologic Neuro Exam: Sedated Assessment/Plan Problem List: (1) EDITH (acute kidney injury) ICD Codes: N17.9 - Acute kidney failure, unspecified Status: Acute Plan: Patient has no improvement and dialysis started on 07/21. no response to fluids IVF rate at 42 cc/hr she is forgetful, has jerky movements, anemia, likely getting uremic Likely she has ATN or worsening chronic graft loss She may benefit from reducing Immunosuppression since has RCC diagnosed recently may stop CellCept today follows with Dr. Velez Patient has HD done today and 2.5 liters removed. Tolerated well. Follow the urine out put and BMP and HD. (2) Diabetes ICD Codes: E11.9 - Type 2 diabetes mellitus without complications Status: Chronic Plan: Monitor (3) HTN (hypertension) ICD Codes: I10 - Essential (primary) hypertension Status: Chronic (4) H/O kidney transplant ICD Codes: Z94.0 - Kidney transplant status Status: Acute Plan: Patient has a failing allograft Problem Qualifiers (1) Diabetes: Becky Angeles MD Jul 22, 2017 11:30
[2017-07-22] MEDS: FERROUS SULFATE 325 MG (65 MG ELEMENTAL IRON) TAB PO SCH ×2 (11:32→13:24)
[2017-07-22] MEDS: PROPOFOL 1000 MG/100 ML INJ 100 ML IV PRN ×4 (11:32→23:32)
[2017-07-22] MEDS: INSULIN ASPART SUPPLEMENTAL SCALE SQ SCH ×2 (12:00→18:00)
--- NOTE | 2017-07-22 12:04 | HHI.IDPN ---
Subjective Subjective Remarks events noted Pt was transfered to ICU last night where she cont to deteriorate neurologiocallyu, she was diagnosed with hypercapnica resp failure and was emegerntly intubated today she remains on vent Fi O2 30% Antibiotics zithromax zyvox zosyn Past Medical History ESRD renla allograft renal cell carcinoma May 2017 radical right nephrectomy for renal cell Cancer in May 2017 Allergies: Coded Allergies: adhesive (Unverified Allergy, Severe, SILK TAPE, 07/07/17) NSAIDS (Non-Steroidal Anti-Inflamma (Verified Adverse Reaction, Severe, Nausea/Vomiting, 07/07/17) Objective . Vital Signs Date Time Temp Pulse Resp B/P (MAP) Pulse Ox O2 Delivery O2 Flow Rate FiO2 07/22/17 11:04 92 30 07/22/17 08:14 93 30 07/22/17 06:00 51 07/22/17 05:48 98.6 51 17 133/62 (85) 91 07/22/17 04:45 30 07/22/17 04:45 93 30 07/22/17 04:00 51 07/22/17 02:00 51 07/22/17 01:48 98.6 57 14 132/72 (92) 96 07/22/17 00:00 98.4 50 11 123/66 (85) 94 07/22/17 00:00 50 07/21/17 22:00 50 07/21/17 20:00 98.3 52 22 109/51 (70) 93 07/21/17 20:00 50 07/21/17 18:42 95 Nasal Cannula 3.00 07/21/17 15:00 53 20 116/46 (69) 95 07/21/17 14:45 97.8 53 20 112/43 (66) 97 07/21/17 12:53 97.7 54 18 106/51 (69) 97 07/21/17 12:45 51 07/22/17 07/22/17 07/23/17 15:00 23:00 07:00 Output Total 4675 ml Balance -4675 ml Output Urine Total 175 ml Stool Total 0 ml Hemodialysis 4500 ml . Laboratory Tests Test 07/21/17 06:01 07/22/17 05:57 White Blood Count 8.5 TH/MM3 5.4 TH/MM3 Red Blood Count 2.67 MIL/MM3 2.40 MIL/MM3 Hemoglobin 7.5 GM/DL 6.9 GM/DL Hematocrit 24.5 % 21.9 % Mean Corpuscular Volume 91.7 FL 91.2 FL Mean Corpuscular Hemoglobin 28.0 PG 28.8 PG Mean Corpuscular Hemoglobin Concent 30.5 % 31.6 % Red Cell Distribution Width 14.6 % 14.8 % Platelet Count 206 TH/MM3 150 TH/MM3 Mean Platelet Volume 8.0 FL 8.3 FL Neutrophils (%) (Auto) 78.7 % 78.5 % Lymphocytes (%) (Auto) 8.5 % 8.7 % Monocytes (%) (Auto) 10.8 % 11.1 % Eosinophils (%) (Auto) 1.3 % 1.3 % Basophils (%) (Auto) 0.7 % 0.4 % Neutrophils # (Auto) 6.7 TH/MM3 4.3 TH/MM3 Lymphocytes # (Auto) 0.7 TH/MM3 0.5 TH/MM3 Monocytes # (Auto) 0.9 TH/MM3 0.6 TH/MM3 Eosinophils # (Auto) 0.1 TH/MM3 0.1 TH/MM3 Basophils # (Auto) 0.1 TH/MM3 0.0 TH/MM3 CBC Comment DIFF FINAL DIFF FINAL Differential Comment Laboratory Tests Test 07/21/17 06:01 07/21/17 21:48 07/22/17 05:51 Blood Urea Nitrogen 93 MG/DL 68 MG/DL Creatinine 4.60 MG/DL 4.06 MG/DL Random Glucose 212 MG/DL 201 MG/DL Albumin 3.1 GM/DL Calcium Level 8.2 MG/DL 8.3 MG/DL Phosphorus Level 5.9 MG/DL Sodium Level 137 MEQ/L 137 MEQ/L Potassium Level 5.0 MEQ/L 4.1 MEQ/L Chloride Level 104 MEQ/L 104 MEQ/L Carbon Dioxide Level 20.4 MEQ/L 24.7 MEQ/L Anion Gap 13 MEQ/L 8 MEQ/L Estimat Glomerular Filtration Rate 10 ML/MIN 11 ML/MIN Lactic Acid Level 0.7 mmol/L Microbiology Date/Time Source Procedure Growth Status 07/20/17 21:46 Blood Peripheral Aerobic Blood Culture - Preliminary NO GROWTH IN 2 DAYS Resulted 07/20/17 21:46 Blood Peripheral Anaerobic Blood Culture - Preliminary NO GROWTH IN 2 DAYS Resulted 07/20/17 21:40 Blood Peripheral Aerobic Blood Culture - Preliminary NO GROWTH IN 2 DAYS Resulted 07/20/17 21:40 Blood Peripheral Anaerobic Blood Culture - Preliminary NO GROWTH IN 2 DAYS Resulted 07/22/17 10:15 Sputum Endotracheal Gram Stain Pending Received 07/22/17 10:15 Sputum Endotracheal Sputum Culture Pending Received Imaging Last Impressions Catheter Placement X-Ray 07/21/17 0000 Signed Impressions: Service Date/Time: Friday, July 21, 2017 14:47 - CONCLUSION: Uncomplicated PermaCath placement as above. Idris Diaz MD Chest X-Ray 07/19/17 0000 Signed Impressions: Service Date/Time: Wednesday, July 19, 2017 16:37 - CONCLUSION: Bibasilar airspace disease with possible bilateral effusions. Mild cardiomegaly. Schuyler Saucedo MD Abdomen/Pelvis CT 07/19/17 0000 Signed Impressions: Service Date/Time: Wednesday, July 19, 2017 16:25 - CONCLUSION: 1. Status post right nephrectomy with no acute findings in the right renal fossa. 2. New bibasilar consolidating infiltrate and small bilateral effusions. 3. Anasarca 4. 3 cm left renal mass; unchanged. 5. Status post cholecystectomy. Schuyler Saucedo MD Physical Exam CONSTITUTIONAL/GENERAL: This is a morbidly obese patient, in no apparent distress. Intubated TUBES/LINES/DRAINS: SKIN: No jaundice, rashes, or lesions. Skin temperature appropriate. Not diaphoretic. HEAD: Atraumatic. Normocephalic. EYES: Pupils equal and round and reactive. Extraocular motions intact. No scleral icterus. No injection or drainage. Fundi not examined. ENT: Hearing grossly normal. Nose without bleeding or purulent drainage. Throat without visible erythema, exudates, masses, or lesions. CARDIOVASCULAR: Regular rate and rhythm without murmurs, gallops, or rubs. No JVD. Peripheral pulses symmetric. RESPIRATORY/CHEST: Symmetric, unlabored respirations. Clear to auscultation. Breath sounds equal bilaterally. No wheezes, rales, or rhonchi. GASTROINTESTINAL: Abdomen soft, non-tender, nondistended Its markely obese and degree of obesty preculdes examination of organomegaly, or palpable masses. No guarding. Bowel sounds present. MUSCULOSKELETAL: Extremities without clubbing, cyanosis, or edema. No joint tenderness or effusion noted. No calf tenderness. No mottling or clubbing. LYMPHATICS: No palpable cervical or supraclavicular adenopathy. NEUROLOGICAL: unresponsive Eyes closed. Not follows commands. PSYCHIATRIC:unable to assess Assessment & Plan Remarks PNA ARF/CKD, transpalnt failure starte on HD Permacath placed 07/21 Immunosuppresed Renal allograft Renal ca sp R nephrectomy 2 mos ago Acute hypercapnic resp failure avoid neprotoxins: will dc vancomycin cont IV zyvox cont zosyn cont zithromax fu sputum clx fu flu/leg / penumococcus dw RN Geena Price MD Jul 22, 2017 12:04
--- NOTE | 2017-07-22 18:00 | MG ---
cc: SALLY DOMINGUEZ M.D. Lab No: Date: 07/22/2017 Age: Sex: F Race: REQUESTING PHYSICIAN: Dr. Barrios. An EEG was obtained on this patient being evaluated for seizures. The patient is intubated on Diprivan, restless and not following commands. The EEG shows low amplitude beta rhythms along with delta activity continually. This seems to be possibly a representation of sedation. Photic stimulation showed no change. INTERPRETATION: Abnormal EEG because of generalized slowing without any distinct lateralizing features present. No epileptiform features present. This EEG finding actually may represent heavy sedation. Clinical correlation. MD TAMIKA Reaves/ARVIN /5:46 PM /5:54 PM
[2017-07-22] MEDS: SODIUM CHLOR 0.9% 1000 ML INJ 1,000 ML IV SCH (21:30)
[2017-07-22] MEDS: PRAVASTATIN SOD 40 MG TAB PO SCH (23:31)
[2017-07-23] VITALS (21 sets, daily range): BP systolic 133–184; BP diastolic 60–77; PULSE 54–63; RESP 15–21; TEMP 97.5–98.1; O2SAT 93–100
[2017-07-23] MEDS: PIPERACIL-TAZO 2.25 GM PREMIX 50 ML IV SCH ×4 (02:00→19:34)
[2017-07-23] MEDS: PROPOFOL 1000 MG/100 ML INJ 100 ML IV PRN ×9 (02:01→23:48)
--- NOTE | 2017-07-23 03:28 | RADRPT ---
EXAM DATE/TIME: 07/23/2017 03:07 [facility] COMPARISON: No previous studies available for comparison. INDICATIONS : Change in mental status; patient unresponsive. RADIATION DOSE: 52.52 CTDIvol (mGy) MEDICAL HISTORY : Renal failure, chronic. Cardiovascular disease SURGICAL HISTORY : Cholecystectomy. Renal transplant / nephrectomy ENCOUNTER: Initial ACUITY: 1 day PAIN SCALE: Non-responsive LOCATION: cranial TECHNIQUE: Multiple contiguous axial images were obtained of the head. Using automated exposure control and adj ustment of the mA and/or kV according to patient size, radiation dose was kept as low as reasonably a chievable to obtain optimal diagnostic quality images. DICOM format image data is available electro nically for review and comparison. FINDINGS: CEREBRUM: The ventricles are normal for age. No evidence of midline shift, mass lesion, hemorrhage or acute in farction. No extra-axial fluid collections are seen. POSTERIOR FOSSA: The cerebellum and brainstem are intact. The 4th ventricle is midline. The cerebellopontine angle i s unremarkable. EXTRACRANIAL: The visualized portion of the orbits is intact. SKULL: The calvaria is intact. No evidence of skull fracture. CONCLUSION: No acute intracranial abnormality demonstrated. To Madera MD on July 23, 2017 at 3:26 Board Certified Radiologist. This report was verified electronically.
[2017-07-23] MEDS: CHLORHEXIDINE GLUCONATE 2 % 1 PACK (2 CLOTHS)(taper/protocol) TOPICAL SCH (04:00)
[2017-07-23] MEDS: RESP: ALBUTEROL 2.5 MG/IPRATROPIUM 0.5 MG NEB (SCH) NEB ×6 (04:07→23:10)
--- NOTE | 2017-07-23 04:42 | RADRPT ---
EXAM DATE/TIME: 07/23/2017 03:39 [facility] COMPARISON: CHEST SINGLE AP, July 19, 2017, 16:37. INDICATIONS : Shortness of breath, possible pulmonary disease. MEDICAL HISTORY : Cardiovascular disease. Diabetes mellitus type II. SURGICAL HISTORY : None. ENCOUNTER: Subsequent ACUITY: 4 - 6 days PAIN SCORE: 0/10 LOCATION: Bilateral chest FINDINGS: Small right and moderate left pleural effusions are present and with basilar predominant bilateral co nsolidation, worse. No pneumothorax seen. Endotracheal tube tip is approximately 5 cm above the ellie. Nasogastric tube courses into the stoma ch. There is a right internal jugular double-lumen catheter with tip at the atriocaval junction. Mild cardiomegaly again noted. CONCLUSION: Worsening effusions and bibasilar consolidation. To Madera MD on July 23, 2017 at 4:40 Board Certified Radiologist. This report was verified electronically.
[2017-07-23 05:01] LABS: BASOPHIL % 0.7 % (0.0-2.0); EOSINOPHIL # 0.1 TH/MM3 (0-0.4); EOSINOPHIL % 2.5 % (0.0-4.0); HEMATOCRIT 23.2 % (35.0-46.0); HEMOGLOBIN 7.5 GM/DL (11.6-15.3); LYMPH % 11.3 % (9.0-44.0); LYMPHOCYTE # 0.6 TH/MM3 (1.0-4.8); MEAN CELL VOLUME 87.1 FL (80.0-100.0); MEAN CORPUSCULAR HEMOGLOBIN 28.3 PG (27.0-34.0); MEAN CORPUSCULAR HGB CONC 32.5 % (32.0-36.0); MEAN PLATELET VOLUME 7.9 FL (7.0-11.0); MONO % 10.5 % (0.0-8.0); MONOCYTE # 0.6 TH/MM3 (0-0.9); PLATELET COUNT 154 TH/MM3 (150-450); RED BLOOD COUNT 2.66 MIL/MM3 (4.00-5.30); RED CELL DISTRIBUTION WIDTH 14.1 % (11.6-17.2); WHITE BLOOD COUNT 5.4 TH/MM3 (4.0-11.0)
[2017-07-23] MEDS: LEVOTHYROXINE SODIUM 50 MCG TAB PO SCH (05:20)
[2017-07-23] MEDS: HEPARIN SODIUM - SQ 10,000 UNITS/ML VIAL SQ SCH ×3 (05:20→20:50)
[2017-07-23] MEDS: hydrALAZINE HCL 25 MG TAB PO SCH ×3 (05:20→20:50)
[2017-07-23 05:34] LABS: ALKALINE PHOSPHATASE 89 U/L (45-117); ALT (GPT) 16 U/L (10-53); AST (GOT) 10 U/L (15-37); BICARBONATE 25.3 MEQ/L (21.0-32.0); BLOOD UREA NITROGEN 53 MG/DL (7-18); CALCIUM 8.3 MG/DL (8.5-10.1); CHLORIDE 103 MEQ/L (98-107); CREATININE 3.44 MG/DL (0.50-1.00); GLOMERULAR FILTRATION RATE 14 ML/MIN (>89); GLUCOSE,RANDOM 143 MG/DL (74-106); MAGNESIUM 2.4 MG/DL (1.5-2.5); PHOSPHORUS 3.7 MG/DL (2.5-4.9); SODIUM (NA) 138 MEQ/L (136-145); TOTAL BILIRUBIN ADULT 0.4 MG/DL (0.2-1.0)
[2017-07-23] MEDS: INSULIN ASPART SUPPLEMENTAL SCALE SQ SCH ×5 (05:50→23:58)
--- NOTE | 2017-07-23 07:00 | HHI.CCPN ---
Subjective Remarks/Hospital Course I was asked to see patient this evening due to excessive somnolence. She was protecting her airway adequately but otherwise unresponsive except to loud voice or noxious stimulation. She was just started back on dialysis after a renal transplant failed. She has a past medical history of hypertension, hyperlipidemia, depression, morbid obesity, CKD status post renal transplant, renal cell carcinoma status post right nephrectomy, diabetes mellitus and sleep apnea. She presented to the ER 2 days ago with persistent vomiting despite home medication with Zofran and Phenergan. Patient also complains of generalized abdominal pain, worst in the epigastric region. She was discharged from the hospital on 07/13 where she was treated for acute on chronic kidney injury, generalized weakness and hyperkalemia. She is chronically on 2-3 L nasal cannula at home with a history of asthma. She denies any fever/chills. H&H 7.6 /23.8 which is approximately patient's baseline. BUN/creatinine 86/3.89, patient's creatinine 2.66 on 07/13. Chest x-ray showed bibasilar airspace disease with possible bilateral pleural effusions. CT of the abdomen/pelvis with new bibasilar consolidating infiltrate and 3 cm left renal mass which is unchanged from previous. Presently, her respiratory effort is satisfactory and she controls her airway. Major concern is for CO2 retention. Subjective 07/22: Currently orotracheally intubated. On low dose propofol drip at 10 mcg/ kg per minute. Arousable on the ventilator and appointments. Will initiate tube feeding today. 07/23: Afebrile. Patient received transfusion yesterday 1 unit of packed red blood cells hemoglobin stable this a.m.. Patient underwent hemodialysis yesterday approximately 4500 cc removed. Patient continues on sedation for ventilator synchrony. Chest x-ray appears to be worsening. CT brain revealed no abnormalities. Objective Vital Signs Date Time Temp Pulse Resp B/P (MAP) Pulse Ox O2 Delivery O2 Flow Rate FiO2 07/23/17 05:08 95 40 07/23/17 04:00 56 07/23/17 04:00 97.5 18 133/63 (86) 07/23/17 03:00 10.00 07/21/17 18:42 Nasal Cannula Result Diagram: 07/23/17 0425 07/23/17 0425 Other Results Microbiology Date/Time Source Procedure Growth Status 07/22/17 20:05 Nasal Aspirate Influenza Types A,B Antigen (DERRICK) - Final NEGATIVE FOR FLU A AND B ANTIGEN.... Complete Laboratory Tests Test 07/22/17 12:09 Blood Gas Puncture Site LT BRACHIAL Blood Gas Patient Temperature 98.6 Blood Gas HCO3 24 mmol/L (22-26) Blood Gas Base Excess -0.1 mmol/L (-2-2) Blood Gas Oxygen Saturation 86 % (90-100) Arterial Blood pH 7.39 (7.380-7.420) Arterial Blood Partial Pressure CO2 41 mmHg (38-42) Arterial Blood Partial Pressure O2 51 mmHg (61-120) Arterial Blood Oxygen Content 8.5 Vol % (12.0-20.0) Arterial Blood Carboxyhemoglobin 1.5 % (0-4) Arterial Blood Methemoglobin 1.3 % (0-2) Blood Gas Hemoglobin 7.0 G/DL (12.0-16.0) Oxygen Delivery Device VENTILATOR Blood Gas Ventilator Setting Blood Gas Inspired Oxygen 30 % Imaging Last Impressions Chest X-Ray 07/23/17 0600 Signed Impressions: Service Date/Time: Sunday, July 23, 2017 03:39 - CONCLUSION: Worsening effusions and bibasilar consolidation. To Madera MD Head CT 07/22/17 0000 Signed Impressions: Service Date/Time: Sunday, July 23, 2017 03:07 - CONCLUSION: No acute intracranial abnormality demonstrated. To Madera MD Catheter Placement X-Ray 07/21/17 0000 Signed Impressions: Service Date/Time: Friday, July 21, 2017 14:47 - CONCLUSION: Uncomplicated PermaCath placement as above. Idris Diaz MD Abdomen/Pelvis CT 07/19/17 0000 Signed Impressions: Service Date/Time: Wednesday, July 19, 2017 16:25 - CONCLUSION: 1. Status post right nephrectomy with no acute findings in the right renal fossa. 2. New bibasilar consolidating infiltrate and small bilateral effusions. 3. Anasarca 4. 3 cm left renal mass; unchanged. 5. Status post cholecystectomy. Schuyler Saucedo MD Last Impressions Catheter Placement X-Ray 07/21/17 0000 Signed Impressions: Service Date/Time: Friday, July 21, 2017 14:47 - CONCLUSION: Uncomplicated PermaCath placement as above. Idris Diaz MD Chest X-Ray 07/19/17 0000 Signed Impressions: Service Date/Time: Wednesday, July 19, 2017 16:37 - CONCLUSION: Bibasilar airspace disease with possible bilateral effusions. Mild cardiomegaly. Schuyler Saucedo MD Abdomen/Pelvis CT 07/19/17 0000 Signed Impressions: Service Date/Time: Wednesday, July 19, 2017 16:25 - CONCLUSION: 1. Status post right nephrectomy with no acute findings in the right renal fossa. 2. New bibasilar consolidating infiltrate and small bilateral effusions. 3. Anasarca 4. 3 cm left renal mass; unchanged. 5. Status post cholecystectomy. Schuyler Saucedo MD Objective Remarks GENERAL: 56-year-old female, resting in bed orotracheally intubated and sedated SKIN: Warm and dry. HEAD: Atraumatic. Normocephalic. EYES: Pupils 2 mm, equal round and reactive. Extraocular motions intact ENT: Throat without erythema. Airway widely patent. NECK: Trachea midline. Supple, nontender, right IJ tunneled cuffed catheter in place for hemodialysis CARDIOVASCULAR: Bradycardic, RR. S1, S2 no S4. Without murmurs, clicks, gallops or rub. Unable to assess JVD secondary to body habitus RESPIRATORY: Clear to auscultation. Breath sounds equal bilaterally. No wheezes , rales, or rhonchi. Diminished throughout. GASTROINTESTINAL: Abdomen obese; soft, nontender, nondistended. Fixed mass in hernia right side, nontender. BS active. MUSCULOSKELETAL: 2+ peripheral edema left upper extremity, trace to 1+ right upper extremity chronic. Well perfused. NEUROLOGICAL: RASS -2. Cranial nerves II through XII appear grossly intact. Positive gag and corneal reflex. Withdraws to pain in all 4 extremities on sedation currently A/P Assessment and Plan Neuro/Psych: Acute toxic metabolic encephalopathy Depression disorder NOS Currently on propofol/fentanyl drips for sedation/analgesia while intubated Goal of RASS -2 Daily sedation vacation Holding sertraline 200 mg by mouth daily for depression. While on linezolid. Resume when clinically indicated CV: Hypertension Dyslipidemia Currently on amlodipine 10 mg daily, hydralazine 50 mg every 8 hours, HCTZ 25 mg daily and metoprolol 50 mg by mouth twice a day for hypertension. Currently on Pravachol 40 mg daily for dyslipidemia. Currently normal saline at 42 cc an hour Resp: Acute on chronic hypoxemic respiratory failure Chronic home O2 dependency at 3 L at home History of asthma PRVC 18/550/0.9/5/40 Ventilator bundle Albuterol/ipratropium aerosols every 4 hours with albuterol aerosols every 2 hours. Dyspnea Add budesonide 0.5/2 1 inhalation twice a day On fluticasone 44 g 2 puffs twice a day and salmeterol 50 g inhaled twice a day at home CXR 07/23 worsening effusions and bibasilar consolidation small right and moderate left pleural effusions GI: Hypoalbuminemia Initiate tube feeding with Suplena goal 55 cc an hour, currently of 40 cc/hour- normal residual Famotidine for GI prophylaxis Docusate sodium/senna 1 tablet twice a day for bowel regimen : Maintain Grant catheter Endo: Diabetes mellitus Hypothyroidism Currently on insulin detemir 5 units twice a day with Novulog sliding scale insulin every 6 hours to maintain euglycemia On detemir 50 units in a.m. 4 units at night at home along with insulin Aspart sliding scale insulin Continue levothyroxine 50 mcg by mouth daily for hypothyroidism. 07/23 TSH- WNL. Renal: History renal cell cancer 3 cm left renal mass Status post right nephrectomy May 2017 for renal cell carcinoma Failing autologous renal transplant on chronic immunosuppression Currently on cyclosporine 75 mg twice a day. Holding CellCept 500 mg twice a day. Currently receiving hemodialysis per Dr. Phelan yesterday 07/21. 07/22 IHD 4500 cc Urine output last 24 hours-275cc Follow creatinine daily. Heme: Anemia of chronic kidney disease Continue iron sulfate 325 mg twice a day Serial hemoglobins daily. Maintain hemoglobin greater than 7 ID: Pneumonia Currently on linezolid, azithromycin and piperacillin/tazobactam 07/20 Blood cultures 2- NGTD CMV pending 07/22 Sputum- pending 07/22 Influenza -neg 07/22-Legionella, pneumococcal-pending Infectious disease following FEN: Hyperphosphatemia Continue phosphate binder Replace electrolytes as clinically indicated MSK: Elevated BMI greater than 50 Charcot foot Weight loss encouraged. PT evaluate and treat Access - Utilize peripheral IV. Central line if indicated Prophylaxis - GI - famotidine -DVT- SCD/heparin subcutaneous Dispo: This patient remains critically ill with one or more organ systems which are or may become a threat to life. I have spent in excess of 33 minutes discontinuously in the care and management of this patient. This time is exclusive of procedures, and includes, but is not limited to, evaluation of the patient, review of the medical record, discussions with family, consultants, nursing staff, or respiratory therapy, and documentation in the medical record. Discussed with SCIENTIFIC DIRECTOR at bedside (Bronson) Physician Vivian Goff MD Jul 23, 2017 07:00
[2017-07-23] MEDS: CHLORHEXIDINE 0.12% (ORAL KIT) 15 ML CUP MT SCH ×2 (08:00→19:35)
[2017-07-23] MEDS: RESP: BUDESONIDE 0.5 MG/2 ML NEB NEB SCH ×2 (08:12→19:45)
[2017-07-23] MEDS: SALMETEROL XINAFOATE 50 MCG DISKUS INH SCH ×2 (09:00→19:35)
[2017-07-23] MEDS: INSULIN DETEMIR 100 UNITS/ML VIAL SQ SCH ×2 (09:00→20:50)
--- NOTE | 2017-07-23 09:00 | RADRPT ---
EXAM DATE/TIME: 07/23/2017 07:48 [facility] COMPARISON: No previous studies available for comparison. INDICATIONS : Bilateral arm edema. MEDICAL HISTORY : Hypercholesterolemia. Arthritis. Osteoporosis. Retinopathy. HTN. COPD. Asthma. Sleep apnea. Hay fever . Diabetes. Renal cell carcinoma. SURGICAL HISTORY : Tonsillectomy. section. Cholecystectomy.Bilateral cataract removal. Fused lumbar spine. Right nephrectomy. Kidney transplant. ENCOUNTER: Initial ACUITY: 1 day PAIN SCORE: Non-responsive LOCATION: Bilateral arm. FINDINGS: RIGHT UPPER EXTREMITY: There is spontaneous flow documented in the brachial, basilic, cephalic, axillary, and subclavian vei ns. The vessels are compressible and augmentation response is documented. No filling defects are se en. The flow is phasic with respiration. Direction of flow in the jugular vein is caudal. LEFT UPPER EXTREMITY: There is spontaneous flow documented in the brachial, basilic, cephalic, axillary, and subclavian vei ns. The vessels are compressible and augmentation response is documented. No filling defects are se en. The flow is phasic with respiration. Direction of flow in the jugular vein is caudal. CONCLUSION: No evidence of deep venous thrombosis within the upper extremities. Florin Michelle MD on July 23, 2017 at 8:57 Board Certified Radiologist. This report was verified electronically.
[2017-07-23] MEDS: ASPIRIN EC 81 MG TABEC PO SCH (09:20)
[2017-07-23] MEDS: FAMOTIDINE 20 MG TAB PO SCH ×2 (09:20→20:51)
[2017-07-23] MEDS: amLODIPine BESYLATE 5 MG TAB PO SCH (09:20)
[2017-07-23] MEDS: CALCIUM/VITAMIN D 250 MG/125 U TAB PO SCH ×2 (09:20→17:04)
[2017-07-23] MEDS: CALCIUM ACETATE 667 MG CAP PO SCH ×3 (09:20→17:04)
[2017-07-23] MEDS: predniSONE 5 MG TAB PO SCH (09:21)
[2017-07-23] MEDS: LINEZOLID 600 MG PREMIX 300 ML IV SCH ×2 (09:21→23:48)
[2017-07-23] MEDS: HYDROCHLOROTHIAZIDE 25 MG TAB PO SCH (09:21)
[2017-07-23] MEDS: METOPROLOL TARTRATE 50 MG TAB PO SCH ×2 (09:32→20:50)
[2017-07-23] MEDS: SODIUM CHLORIDE 0.9% FLUSH 10 ML FLUSH IV FLUSH SCH ×2 (09:34→20:51)
--- NOTE | 2017-07-23 09:57 | HHI.NPPN ---
Subjective History of Present Illness Patient is a 56-year-old female with history of kidney transplant since 2000, she has renal cell cancer and has one kidney removed she has persistent nausea and vomiting and taking Phenergan and Zofran which is not working she came in with these complaints to the hospital and then her creatinine was 3.8, her baseline creatinine was 2.8- 2.6 last week She has a radical right nephrectomy for renal cell Cancer in May 2017 Additional Remarks Patient is intubated and sedated, clinically same. Review of Systems General Constitutional: Fatigue Cardiovascular Cardiac: Edema Objective Data Data Vital Signs Date Time Temp Pulse Resp B/P (MAP) Pulse Ox O2 Delivery O2 Flow Rate FiO2 07/23/17 08:13 94 40 07/23/17 06:00 57 07/23/17 05:08 95 40 07/23/17 04:00 56 07/23/17 04:00 97.5 56 18 133/63 (86) 94 07/23/17 04:00 40 07/23/17 03:00 100 10.00 07/23/17 02:00 56 07/23/17 00:54 93 40 07/23/17 00:00 97.9 54 18 184/77 (112) 93 07/23/17 00:00 40 07/23/17 00:00 54 07/22/17 22:00 58 07/22/17 21:47 95 40 07/22/17 21:25 100 15.00 100 07/22/17 20:00 97.8 54 18 173/75 (107) 95 07/22/17 20:00 54 07/22/17 20:00 40 07/22/17 18:15 53 07/22/17 16:19 92 40 07/22/17 16:01 97.8 52 18 174/72 (106) 95 07/22/17 16:00 30 07/22/17 16:00 52 07/22/17 15:01 54 18 170/75 (106) 95 07/22/17 14:18 55 22 129/68 (88) 96 07/22/17 14:00 55 07/22/17 13:29 94 40 07/22/17 13:01 53 23 170/82 (111) 92 07/22/17 12:01 97.8 53 18 178/74 (108) 89 07/22/17 12:00 70 12/16/17 12:00 30 07/22/17 11:04 92 30 07/22/17 10:00 53 07/22/17 10:00 53 20 168/72 (104) 92 -: 07/23/17 0425 07/23/17 0425 Microbiology 07/22/17 Influenza Types A,B Antigen (DERRICK) - Final, Complete NEGATIVE FOR FLU A AND B ANTIGEN.... 07/22/17 Gram Stain - Final, Resulted 07/22/17 Sputum Culture, Resulted Pending 07/22/17 Legionella Antigen - Final, Complete PRESUMPTIVE NEGATIVE FOR LEGIONELLA P... 07/22/17 Streptococcus pneumoniae Antigen (M - Final, Complete PRESUMPTIVE NEGATIVE FOR STREPTOCOCCU... Physical Exam General Appearance: Obese Appearance Remarks Intubated and sedated. Neck Neck Exam: Neck Supple Pulmonary Resp Exam: Crackles, Rhonchi, Decreased Bases, Diminished Breath Sounds Cardiology CV Exam: Regular Gastrointestinal/Abdomen GI Exam: Soft, Non-Tender, Bowel Sounds Present Extremeties Extremities Exam: Moderate Edema Neurologic Neuro Exam: Sedated Assessment/Plan Problem List: (1) EDITH (acute kidney injury) ICD Codes: N17.9 - Acute kidney failure, unspecified Status: Acute Plan: Patient has no improvement and dialysis started on 07/21. no response to fluids IVF rate at 42 cc/hr she is forgetful, has jerky movements, anemia, likely getting uremic Likely she has ATN or worsening chronic graft loss She may benefit from reducing Immunosuppression since has RCC diagnosed recently may stop CellCept today follows with Dr. Velez Patient has HD done yesterday. Follow the urine out put and BMP and HD as needed. Dr. Velez will follow in AM. (2) Diabetes ICD Codes: E11.9 - Type 2 diabetes mellitus without complications Status: Chronic Plan: Monitor (3) HTN (hypertension) ICD Codes: I10 - Essential (primary) hypertension Status: Chronic (4) H/O kidney transplant ICD Codes: Z94.0 - Kidney transplant status Status: Acute Plan: Patient has a failing allograft Problem Qualifiers (1) Diabetes: Becky Angeles MD Jul 23, 2017 09:57
[2017-07-23] MEDS: FERROUS SULFATE 325 MG (65 MG ELEMENTAL IRON) TAB PO SCH ×2 (11:48→17:04)
[2017-07-23] MEDS: AZITHROMYCIN 500 MG/NS 250 ML IV SCH ×2 (19:35)
[2017-07-23] MEDS: SODIUM CHLOR 0.9% 1000 ML INJ 1,000 ML IV SCH (20:51)
[2017-07-23] MEDS: PRAVASTATIN SOD 40 MG TAB PO SCH (20:51)
[2017-07-24] VITALS (19 sets, daily range): BP systolic 106–125; BP diastolic 53–58; PULSE 50–59; RESP 11–18; TEMP 96.8–98.8; O2SAT 92–100
[2017-07-24] MEDS: PROPOFOL 1000 MG/100 ML INJ 100 ML IV PRN ×9 (02:35→22:26)
[2017-07-24] MEDS: PIPERACIL-TAZO 2.25 GM PREMIX 50 ML IV SCH ×4 (02:35→22:05)
[2017-07-24] MEDS: RESP: ALBUTEROL 2.5 MG/IPRATROPIUM 0.5 MG NEB (SCH) NEB ×6 (03:21→23:23)
[2017-07-24] MEDS: CHLORHEXIDINE GLUCONATE 2 % 1 PACK (2 CLOTHS)(taper/protocol) TOPICAL SCH (04:00)
[2017-07-24] MEDS: HEPARIN SODIUM - SQ 10,000 UNITS/ML VIAL SQ SCH ×3 (05:02→22:05)
[2017-07-24] MEDS: hydrALAZINE HCL 25 MG TAB PO SCH ×3 (05:02→22:00)
[2017-07-24] MEDS: LEVOTHYROXINE SODIUM 50 MCG TAB PO SCH (05:02)
[2017-07-24 05:15] LABS: AUTOMATED NEUTROPHIL # 4.6 TH/MM3 (1.8-7.7); BASOPHIL % 0.8 % (0.0-2.0); EOSINOPHIL # 0.2 TH/MM3 (0-0.4); EOSINOPHIL % 2.8 % (0.0-4.0); HEMOGLOBIN 7.1 GM/DL (11.6-15.3); LYMPH % 12.8 % (9.0-44.0); LYMPHOCYTE # 0.8 TH/MM3 (1.0-4.8); MEAN CELL VOLUME 87.3 FL (80.0-100.0); MEAN CORPUSCULAR HEMOGLOBIN 28.2 PG (27.0-34.0); MEAN CORPUSCULAR HGB CONC 32.2 % (32.0-36.0); MEAN PLATELET VOLUME 8.3 FL (7.0-11.0); MONO % 9.2 % (0.0-8.0); MONOCYTE # 0.6 TH/MM3 (0-0.9); NEUT % 74.4 % (16.0-70.0); PLATELET COUNT 158 TH/MM3 (150-450); RED BLOOD COUNT 2.52 MIL/MM3 (4.00-5.30); RED CELL DISTRIBUTION WIDTH 14.3 % (11.6-17.2); WHITE BLOOD COUNT 6.1 TH/MM3 (4.0-11.0)
--- NOTE | 2017-07-24 05:30 | RADRPT ---
EXAM DATE/TIME: 07/24/2017 04:01 [facility] COMPARISON: CHEST SINGLE AP, July 23, 2017, 3:39. INDICATIONS : Shortness of breath, possible pulmonary disease. MEDICAL HISTORY : Cardiovascular disease. Diabetes mellitus type II. SURGICAL HISTORY : None. ENCOUNTER: Subsequent ACUITY: 4 - 6 days PAIN SCORE: Non-responsive. LOCATION: Bilateral chest FINDINGS: The ET tube, NG tube, and right internal jugular central lines are well placed.. There is near total opacification of the left chest. There is hazy density seen throughout the right chest especially at the right base. There is silhouetting of the heart borders. CONCLUSION: 1. Near-total opacification of the left chest likely related to diffuse atelectasis or consolidation. 2. Right consolidation or atelectasis especially at the base. Some degree of right effusion needs to be considered. To Leija MD on July 24, 2017 at 5:27 Board Certified Radiologist. This report was verified electronically.
[2017-07-24 05:41] LABS: BICARBONATE 26.3 MEQ/L (21.0-32.0); CALCIUM 7.9 MG/DL (8.5-10.1); CREATININE 3.51 MG/DL (0.50-1.00)
[2017-07-24] MEDS: SODIUM CHLOR 0.9% 1000 ML INJ 1,000 ML IV SCH (06:00)
[2017-07-24] MEDS: INSULIN ASPART SUPPLEMENTAL SCALE SQ SCH ×3 (07:05→17:33)
[2017-07-24] MEDS: RESP: BUDESONIDE 0.5 MG/2 ML NEB NEB SCH ×2 (08:33→20:55)
[2017-07-24] MEDS: INSULIN DETEMIR 100 UNITS/ML VIAL SQ SCH ×2 (09:00→21:00)
[2017-07-24] MEDS: SALMETEROL XINAFOATE 50 MCG DISKUS INH SCH ×2 (09:00→21:00)
[2017-07-24] MEDS: ASPIRIN EC 81 MG TABEC PO SCH (09:19)
[2017-07-24] MEDS: METOPROLOL TARTRATE 50 MG TAB PO SCH ×2 (09:19→22:07)
[2017-07-24] MEDS: CALCIUM ACETATE 667 MG CAP PO SCH ×3 (09:19→17:33)
[2017-07-24] MEDS: predniSONE 5 MG TAB PO SCH (09:19)
[2017-07-24] MEDS: CALCIUM/VITAMIN D 250 MG/125 U TAB PO SCH ×2 (09:19→17:33)
[2017-07-24] MEDS: HYDROCHLOROTHIAZIDE 25 MG TAB PO SCH (09:19)
[2017-07-24] MEDS: amLODIPine BESYLATE 5 MG TAB PO SCH (09:19)
[2017-07-24] MEDS: SODIUM CHLORIDE 0.9% FLUSH 10 ML FLUSH IV FLUSH SCH ×2 (09:20→21:00)
[2017-07-24] MEDS: CHLORHEXIDINE 0.12% (ORAL KIT) 15 ML CUP MT SCH ×2 (09:20→20:00)
[2017-07-24] MEDS: FAMOTIDINE 20 MG TAB PO SCH ×2 (09:20→22:07)
[2017-07-24] MEDS: LINEZOLID 600 MG PREMIX 300 ML IV SCH ×2 (09:20→22:04)
--- NOTE | 2017-07-24 10:50 | HHI.NPPN ---
Subjective Renal Failure: Chronic, Acute Interval History She remains intubated, sedated, and unresponsive. Afebrile. On 40% Fi02. (Ania Sampson) Review of Systems General General Remarks unable to evaluate (Ania Sampson) Cardiovascular Cardiac: Edema (Ania Sampson) Objective Data Data 07/24/17 07/25/17 19:00 07:00 Intake Total 250 ml Balance 250 ml IV Total 250 ml Vital Signs Date Time Temp Pulse Resp B/P (MAP) Pulse Ox O2 Delivery O2 Flow Rate FiO2 07/24/17 08:36 92 40 07/24/17 06:00 57 07/24/17 04:58 96 40 07/24/17 04:00 56 07/24/17 04:00 40 07/24/17 04:00 98.8 56 18 114/55 (74) 96 07/24/17 02:00 53 07/24/17 01:16 99 40 07/24/17 00:00 40 07/24/17 00:00 56 07/24/17 00:00 98.3 56 18 123/57 (79) 98 07/23/17 22:45 98 40 07/23/17 22:00 58 07/23/17 20:00 40 07/23/17 20:00 55 07/23/17 20:00 97.8 55 18 138/62 (87) 97 07/23/17 19:48 96 40 07/23/17 18:00 56 07/23/17 16:53 96 40 07/23/17 16:00 60 07/23/17 16:00 40 07/23/17 16:00 97.8 63 18 143/62 (89) 98 07/23/17 14:00 61 07/23/17 13:27 96 40 07/23/17 12:00 40 07/23/17 12:00 98.0 62 18 139/60 (86) 96 07/23/17 12:00 62 07/23/17 11:15 40 (Ania Sampson) -: 07/24/17 0450 07/24/17 0430 Imaging Last 72 hours Impressions Chest X-Ray 07/24/17 0600 Signed Impressions: Service Date/Time: Monday, July 24, 2017 04:01 - CONCLUSION: 1. Near- total opacification of the left chest likely related to diffuse atelectasis or consolidation. 2. Right consolidation or atelectasis especially at the base. Some degree of right effusion needs to be considered. To Leija MD Chest X-Ray 07/23/17 0600 Signed Impressions: Service Date/Time: Sunday, July 23, 2017 03:39 - CONCLUSION: Worsening effusions and bibasilar consolidation. To Madera MD Upper Extremity Ultrasound 07/23/17 0000 Signed Impressions: Service Date/Time: Sunday, July 23, 2017 07:48 - CONCLUSION: No evidence of deep venous thrombosis within the upper extremities. Florin Michelle MD Head CT 07/22/17 0000 Signed Impressions: Service Date/Time: Sunday, July 23, 2017 03:07 - CONCLUSION: No acute intracranial abnormality demonstrated. To [place]era MD Tubes & Lines: Perma-Cath, Grant Drip Comment Propofol (CamillaAnia B. METAL MOVER) Physical Exam General Appearance: Comfortable, Sleeping, Obese (CamillaAnia B. METAL MOVER) Eyes Eye Exam: Pupils Equal (CamillaAnia B. METAL MOVER) Neck Neck Exam: Neck Supple (CamillaAnia B. METAL MOVER) Pulmonary Resp Exam: Crackles, Rhonchi, Decreased Bases, Diminished Breath Sounds (Camilla,Ania B. METAL MOVER) Cardiology CV Exam: Regular, Normal Sinus Rhythm (CamillaAnia B. METAL MOVER) Gastrointestinal/Abdomen GI Exam: Soft, Non-Tender, Bowel Sounds Present (CamillaAnia B. METAL MOVER) Musculoskeletal MS Exam: Normal Tone, Unable to Ambulate (CamillaAnia B. METAL MOVER) Integumentary Skin Exam: Warm, Dry (CamillaAnia B. METAL MOVER) Extremeties Extremities Exam: Pedal Pulses Palpable, Moderate Edema (CamillaAnia B. METAL MOVER) Neurologic Neuro Exam: Unresponsive, Sedated (CamillaAnia B. METAL MOVER) Assessment/Plan Assessment Summary: Anemia of CKD, Hypertension, Diabetes Mellitus Problem List: (1) EDITH (acute kidney injury) ICD Codes: N17.9 - Acute kidney failure, unspecified Status: Acute Plan: Has hx of renal transplant in 2000 and a hx of nephrectomy due to renal cell CA in 2017 Residual CKD, baseline appears to be 2.6-2.8 She may have suffered ATN or worsening chronic graft loss HD started on 07/21 and 07/22 HD tomorrow and TTS as needed It remains to be seen if her renal function will recover, monitor renal function daily Monitor urine output, currently marginal output Avoid IVF, nephrotoxic agents Permcath in place on right On Calcium acetate with tube feeding, follow phosphorus level (2) Diabetes ICD Codes: E11.9 - Type 2 diabetes mellitus without complications Status: Chronic Plan: Monitor glucose, maintain 140-180 mg/dL this admission (3) HTN (hypertension) ICD Codes: I10 - Essential (primary) hypertension Status: Chronic Plan: Continue medications as ordered, titrate as needed (4) H/O kidney transplant ICD Codes: Z94.0 - Kidney transplant status Status: Acute Plan: Patient has a failing allograft Continue immunosuppression, she is on prednisone and cyclosporine. Cellcept has been discontinued. Monitor cyclosporine level (5) Pneumonia ICD Codes: J18.9 - Pneumonia, unspecified organism Plan: On Zyvoxx, Zithromax, and Cefazolin Chest xray reviewed On 40% Fi02 (Ania Sampson) Problem List: (1) EDITH (acute kidney injury) ICD Codes: N17.9 - Acute kidney failure, unspecified Status: Acute Plan: Has hx of renal transplant in 2000 and a hx of nephrectomy due to renal cell CA in 2017 Residual CKD, baseline appears to be 2.6-2.8 She may have suffered ATN or worsening chronic graft loss HD started on 07/21 and 07/22 HD tomorrow and TTS as needed It remains to be seen if her renal function will recover, monitor renal function daily Monitor urine output, currently marginal output Avoid IVF, nephrotoxic agents Permcath in place on right On Calcium acetate with tube feeding, follow phosphorus level (2) Diabetes ICD Codes: E11.9 - Type 2 diabetes mellitus without complications Status: Chronic Plan: Monitor glucose, maintain 140-180 mg/dL this admission (3) HTN (hypertension) ICD Codes: I10 - Essential (primary) hypertension Status: Chronic Plan: Continue medications as ordered, titrate as needed (4) H/O kidney transplant ICD Codes: Z94.0 - Kidney transplant status Status: Acute Plan: Patient has a failing allograft Continue immunosuppression, she is on prednisone and cyclosporine. Cellcept has been discontinued. Monitor cyclosporine level (5) Pneumonia ICD Codes: J18.9 - Pneumonia, unspecified organism Plan: On Zyvoxx, Zithromax, and Cefazolin Chest xray reviewed On 40% Fi02 Plan patient was seen and examined. Agree with above assessment and plan. Dialysis will be continued. Unclear if she is going to need lifelong dialysis. (Antonio Velez MD) Problem Qualifiers (1) Diabetes: Ania Sampson [facility] Jul 24, 2017 10:50 Antonio Velez MD Jul 24, 2017 20:33
[2017-07-24] MEDS: FERROUS SULFATE 325 MG (65 MG ELEMENTAL IRON) TAB PO SCH ×2 (12:26→17:33)
[2017-07-24] MEDS ORDERED: CISATRACURIUM BESYLATE 20 MG/10 ML VIAL IV PUSH ONE (15:15)
--- NOTE | 2017-07-24 15:47 | PD.PROCEDR ---
Procedure Note Procedure Procedure: Fiberoptic Bronchoscopy Diagnosis: Hypoxic respiratory failure Indications: Mucous plugging Consent: Obtained from Anesthesia: see MAR Description of the Procedure: The patient was sedated and mechanically ventilated. The patient was placed on 100% FIO2 and a volume control mode of ventilation. The fiberoptic bronchoscopy was inserted via ETT. The trachea, right and left mainstem bronchi, and sub-segmental bronchi were evaluated. The endobronchial anatomy was normal. Findings: thick mucus white colored moderate amount BAL samples: 2 The patient tolerated the procedure well with no hemodynamic instability or hypoxia. There were no immediate complications noted. At the conclusion of the procedure, the patient was placed back on their pre-procedure ventilatory settings. There was minimal EBL. A chest x-ray has been ordered. I personally performed the procedure. Vivian Arias MD Jul 24, 2017 15:47
--- NOTE | 2017-07-24 15:57 | HHI.CCPN ---
Subjective Remarks/Hospital Course I was asked to see patient this evening due to excessive somnolence. She was protecting her airway adequately but otherwise unresponsive except to loud voice or noxious stimulation. She was just started back on dialysis after a renal transplant failed. She has a past medical history of hypertension, hyperlipidemia, depression, morbid obesity, CKD status post renal transplant, renal cell carcinoma status post right nephrectomy, diabetes mellitus and sleep apnea. She presented to the ER 2 days ago with persistent vomiting despite home medication with Zofran and Phenergan. Patient also complains of generalized abdominal pain, worst in the epigastric region. She was discharged from the hospital on 07/13 where she was treated for acute on chronic kidney injury, generalized weakness and hyperkalemia. She is chronically on 2-3 L nasal cannula at home with a history of asthma. She denies any fever/chills. H&H 7.6 /23.8 which is approximately patient's baseline. BUN/creatinine 86/3.89, patient's creatinine 2.66 on 07/13. Chest x-ray showed bibasilar airspace disease with possible bilateral pleural effusions. CT of the abdomen/pelvis with new bibasilar consolidating infiltrate and 3 cm left renal mass which is unchanged from previous. Presently, her respiratory effort is satisfactory and she controls her airway. Major concern is for CO2 retention. Subjective 07/22: Currently orotracheally intubated. On low dose propofol drip at 10 mcg/ kg per minute. Arousable on the ventilator and appointments. Will initiate tube feeding today. 07/23: Afebrile. Patient received transfusion yesterday 1 unit of packed red blood cells hemoglobin stable this a.m.. Patient underwent hemodialysis yesterday approximately 4500 cc removed. Patient continues on sedation for ventilator synchrony. Chest x-ray appears to be worsening. CT brain revealed no abnormalities. 07/24: Afebrile. Chest x-ray showed complete near-complete opacification of the left lung, bronchoscopy planned. Patient noted to have pleural effusions right, ultrasound quantification of pleural effusion pending. Mucomyst initiated. Objective Vital Signs Date Time Temp Pulse Resp B/P (MAP) Pulse Ox O2 Delivery O2 Flow Rate FiO2 07/24/17 14:52 94 40 07/24/17 14:00 56 07/24/17 12:00 97.1 18 125/58 (80) 07/23/17 03:00 10.00 07/21/17 18:42 Nasal Cannula Intake and Output 07/24/17 07/24/17 07/25/17 08:00 16:00 00:00 Intake Total 2229 ml 550 ml Output Total 300 ml Balance 1929 ml 550 ml Result Diagram: 07/24/17 0450 07/24/17 0430 Other Results Microbiology Date/Time Source Procedure Growth Status 07/22/17 20:05 Nasal Aspirate Influenza Types A,B Antigen (DERRICK) - Final NEGATIVE FOR FLU A AND B ANTIGEN.... Complete 07/22/17 20:05 Urine Clean Catch Legionella Antigen - Final PRESUMPTIVE NEGATIVE FOR LEGIONELLA P... Complete 07/22/17 20:05 Urine Clean Catch Streptococcus pneumoniae Antigen (M - Final PRESUMPTIVE NEGATIVE FOR STREPTOCOCCU... Complete Laboratory Tests Test 07/24/17 04:54 Blood Gas Puncture Site RT RADIAL Blood Gas Patient Temperature 98.6 Blood Gas HCO3 25 mmol/L (22-26) Blood Gas Base Excess 0.3 mmol/L (-2-2) Blood Gas Oxygen Saturation 92 % (90-100) Arterial Blood pH 7.39 (7.380-7.420) Arterial Blood Partial Pressure CO2 42 mmHg (38-42) Arterial Blood Partial Pressure O2 70 mmHg (61-120) Arterial Blood Oxygen Content 9.5 Vol % (12.0-20.0) Arterial Blood Carboxyhemoglobin 1.2 % (0-4) Arterial Blood Methemoglobin 1.4 % (0-2) Blood Gas Hemoglobin 7.3 G/DL (12.0-16.0) Oxygen Delivery Device VENTILATOR Blood Gas Ventilator Setting PRVC18/550/1.0/+8 Blood Gas Inspired Oxygen 40 % Imaging Last Impressions Chest X-Ray 07/24/17 0600 Signed Impressions: Service Date/Time: Monday, July 24, 2017 04:01 - CONCLUSION: 1. Near- total opacification of the left chest likely related to diffuse atelectasis or consolidation. 2. Right consolidation or atelectasis especially at the base. Some degree of right effusion needs to be considered. To Leija MD Upper Extremity Ultrasound 07/23/17 0000 Signed Impressions: Service Date/Time: Sunday, July 23, 2017 07:48 - CONCLUSION: No evidence of deep venous thrombosis within the upper extremities. Florin Michelle MD Head CT 07/22/17 0000 Signed Impressions: Service Date/Time: Sunday, July 23, 2017 03:07 - CONCLUSION: No acute intracranial abnormality demonstrated. To Madera MD Catheter Placement X-Ray 07/21/17 0000 Signed Impressions: Service Date/Time: Friday, July 21, 2017 14:47 - CONCLUSION: Uncomplicated PermaCath placement as above. Idris Diaz MD Abdomen/Pelvis CT 07/19/17 0000 Signed Impressions: Service Date/Time: Wednesday, July 19, 2017 16:25 - CONCLUSION: 1. Status post right nephrectomy with no acute findings in the right renal fossa. 2. New bibasilar consolidating infiltrate and small bilateral effusions. 3. Anasarca 4. 3 cm left renal mass; unchanged. 5. Status post cholecystectomy. Schuyler Saucedo MD Last Impressions Chest X-Ray 07/23/17 0600 Signed Impressions: Service Date/Time: Sunday, July 23, 2017 03:39 - CONCLUSION: Worsening effusions and bibasilar consolidation. To Madera MD Head CT 07/22/17 0000 Signed Impressions: Service Date/Time: Sunday, July 23, 2017 03:07 - CONCLUSION: No acute intracranial abnormality demonstrated. To Madera MD Catheter Placement X-Ray 07/21/17 0000 Signed Impressions: Service Date/Time: Friday, July 21, 2017 14:47 - CONCLUSION: Uncomplicated PermaCath placement as above. Idris Diaz MD Abdomen/Pelvis CT 07/19/17 0000 Signed Impressions: Service Date/Time: Wednesday, July 19, 2017 16:25 - CONCLUSION: 1. Status post right nephrectomy with no acute findings in the right renal fossa. 2. New bibasilar consolidating infiltrate and small bilateral effusions. 3. Anasarca 4. 3 cm left renal mass; unchanged. 5. Status post cholecystectomy. Schuyler Saucedo MD Last Impressions Catheter Placement X-Ray 07/21/17 0000 Signed Impressions: Service Date/Time: Friday, July 21, 2017 14:47 - CONCLUSION: Uncomplicated PermaCath placement as above. Idris Diaz MD Chest X-Ray 07/19/17 0000 Signed Impressions: Service Date/Time: Wednesday, July 19, 2017 16:37 - CONCLUSION: Bibasilar airspace disease with possible bilateral effusions. Mild cardiomegaly. Schuyler Saucedo MD Abdomen/Pelvis CT 07/19/17 0000 Signed Impressions: Service Date/Time: Wednesday, July 19, 2017 16:25 - CONCLUSION: 1. Status post right nephrectomy with no acute findings in the right renal fossa. 2. New bibasilar consolidating infiltrate and small bilateral effusions. 3. Anasarca 4. 3 cm left renal mass; unchanged. 5. Status post cholecystectomy. Schuyler Saucedo MD Objective Remarks GENERAL: 56-year-old female, resting in bed orotracheally intubated and sedated SKIN: Warm and dry. HEAD: Atraumatic. Normocephalic. EYES: Pupils 2 mm, equal round and reactive. Extraocular motions intact ENT: Throat without erythema. Airway widely patent. NECK: Trachea midline. Supple, nontender, right IJ tunneled cuffed catheter in place for hemodialysis CARDIOVASCULAR: Bradycardic, RR. S1, S2 no S4. Without murmurs, clicks, gallops or rub. Unable to assess JVD secondary to body habitus RESPIRATORY: Clear to auscultation. Breath sounds equal bilaterally. No wheezes , rales, or rhonchi. Diminished throughout. GASTROINTESTINAL: Abdomen obese; soft, nontender, nondistended. Fixed mass in hernia right side, nontender. BS active. MUSCULOSKELETAL: 2+ peripheral edema left upper extremity, trace to 1+ right upper extremity chronic. Well perfused. NEUROLOGICAL: RASS -2. Cranial nerves II through XII appear grossly intact. Positive gag and corneal reflex. Withdraws to pain in all 4 extremities on sedation currently A/P Assessment and Plan Neuro/Psych: Acute toxic metabolic encephalopathy Depression disorder NOS Currently on propofol/fentanyl drips for sedation/analgesia while intubated Goal of RASS -2 Daily sedation vacation Holding sertraline 200 mg by mouth daily for depression. While on linezolid. Resume when clinically indicated CV: Hypertension Dyslipidemia Currently on amlodipine 10 mg daily, hydralazine 50 mg every 8 hours, HCTZ 25 mg daily and metoprolol 50 mg by mouth twice a day for hypertension. Currently on Pravachol 40 mg daily for dyslipidemia. Currently normal saline at 42 cc an hour Resp: Acute on chronic hypoxemic respiratory failure Chronic home O2 dependency at 3 L at home History of asthma PRVC 18/550/0.9/5/40 Ventilator bundle Albuterol/ipratropium aerosols every 4 hours with albuterol aerosols every 2 hours. Dyspnea Add budesonide 0.5/2 1 inhalation twice a day On fluticasone 44 g 2 puffs twice a day and salmeterol 50 g inhaled twice a day at home CXR 07/23 worsening effusions and bibasilar consolidation small right and moderate left pleural effusions 07/23 US guided quantification of pleural effusion GI: Hypoalbuminemia Initiate tube feeding with Suplena goal 55 cc an hour, currently of 40 cc/hour- normal residual Famotidine for GI prophylaxis Docusate sodium/senna 1 tablet twice a day for bowel regimen : Maintain Grant catheter Endo: Diabetes mellitus Hypothyroidism Currently on insulin detemir 5 units twice a day with Novulog sliding scale insulin every 6 hours to maintain euglycemia On detemir 50 units in a.m. 4 units at night at home along with insulin Aspart sliding scale insulin Continue levothyroxine 50 mcg by mouth daily for hypothyroidism. 07/23 TSH- WNL. Renal: History renal cell cancer 3 cm left renal mass Status post right nephrectomy May 2017 for renal cell carcinoma Failing autologous renal transplant on chronic immunosuppression Currently on cyclosporine 75 mg twice a day. Holding CellCept 500 mg twice a day. Currently receiving hemodialysis per Dr. Phelan yesterday 07/21. 07/22 IHD 4500 cc Urine output last 24 hours-275cc Follow creatinine daily. Heme: Anemia of chronic kidney disease Continue iron sulfate 325 mg twice a day Serial hemoglobins daily. Maintain hemoglobin greater than 7 ID: Pneumonia Currently on linezolid, azithromycin and piperacillin/tazobactam 07/20 Blood cultures 2- NGTD CMV pending 07/22 Sputum- pending 07/22 Influenza -neg 07/22-Legionella, pneumococcal-pending Infectious disease following FEN: Hyperphosphatemia Continue phosphate binder Replace electrolytes as clinically indicated MSK: Elevated BMI greater than 50 Charcot foot Weight loss encouraged. PT evaluate and treat Access - Utilize peripheral IV. Central line if indicated Prophylaxis - GI - famotidine -DVT- SCD/heparin subcutaneous Dispo: D/W Dr. Price, and Marlene PUBLIC HEALTH NURSE at bedside This patient remains critically ill with one or more organ systems which are or may become a threat to life. I have spent in excess of 32 minutes discontinuously in the care and management of this patient. This time is exclusive of procedures, and includes, but is not limited to, evaluation of the patient, review of the medical record, discussions with family, consultants, nursing staff, or respiratory therapy, and documentation in the medical record. Discussed with PUBLIC HEALTH NURSE at bedside (Marlene) Physician Vivian Goff MD Jul 24, 2017 15:57
[2017-07-24] MEDS ORDERED: RESP: ACETYLCYSTEINE 10% 30 ML NEB NEB SCH (16:00)
--- NOTE | 2017-07-24 16:19 | RADRPT ---
EXAM DATE/TIME: 07/24/2017 15:43 [facility] COMPARISON: CHEST SINGLE AP, July 24, 2017, 4:01. INDICATIONS : Post bronchoscope MEDICAL HISTORY : Cardiovascular disease. Diabetes mellitus type II SURGICAL HISTORY : None. ENCOUNTER: Subsequent ACUITY: 4 - 6 days PAIN SCORE: Non-responsive. LOCATION: chest FINDINGS: ET tube and nasogastric tube are in good position. Dense consolidation is present in the left lung. The right lung is clear. There is no pneumothorax. CONCLUSION: Slight improving aeration on the left. Dense consolidation persists. There is no pneumothorax.. Sherif Diaz MD FACR on July 24, 2017 at 16:16 Board Certified Radiologist. This report was verified electronically.
[2017-07-24 16:57] LABS: INTERNATIONAL NORMALIZED RATIO 1.1 RATIO; PROTHROMBIN TIME - PATIENT 10.7 SEC (9.8-11.6)
--- NOTE | 2017-07-24 18:53 | RADRPT ---
EXAM DATE/TIME: 07/24/2017 17:18 [facility] COMPARISON: No previous studies available for comparison. INDICATIONS : Pleural effusion. MEDICAL HISTORY : Hypercholesterolemia. Renal cell carcinoma. Chronic obstructive pulmonary disease. Weakness. Asthma. Sleep apnea. Renal disease. Arthritis. Diabetes. Depression. Anxiety. SURGICAL HISTORY : Tonsillectomy. Cholecystectomy. section. Bilateral cataract surgery. Fused lumbar spine. Rig ht nephrectomy. Kidney transplant. ENCOUNTER: Initial ACUITY: 1 day PAIN SCORE: Nonresponsive. LOCATION: Right chest MEASUREMENTS: SKIN TO PARIETAL PLEURA: 3.7 cm SKIN TO MAX SAFE DEPTH: 6.0 cm ESTIMATED FLUID VOLUME: 291.35 cc FLUID COMPOSITION: simple FINDINGS: No marking was performed due to patient positioning. CONCLUSION: There is a moderate-sized right pleural effusion confirmed by ultrasound Rosalino Morgan MD on July 24, 2017 at 18:50 Board Certified Radiologist. This report was verified electronically.
--- NOTE | 2017-07-24 18:54 | RADRPT ---
EXAM DATE/TIME: 07/24/2017 17:30 [facility] COMPARISON: No previous studies available for comparison. INDICATIONS : Pleural effusion. MEDICAL HISTORY : Hypercholesterolemia. Chronic obstructive pulmonary disease. Renal cell carcinoma. Weakness. Asthma. Sleep apnea. Renal disease. Arthritis. Diabetes. Depression. Anxiety. SURGICAL HISTORY : Tonsillectomy. Cholecystectomy. section. Bilateral cataract surgery. Fused lumbar spine. Rig ht nephrectomy. Kidney transplant. ENCOUNTER: Initial ACUITY: 1 day PAIN SCORE: Nonresponsive. LOCATION: Left chest MEASUREMENTS: SKIN TO PARIETAL PLEURA: 4.3 cm SKIN TO MAX SAFE DEPTH: 7.0 cm ESTIMATED FLUID VOLUME: 777.84 cc FLUID COMPOSITION: simple FINDINGS: Pleural effusion as above. A yudith was placed on the skin surface superficial to the pleural fluid col lection. CONCLUSION: Moderate-sized pleural effusion with skin marking performed. Rosalino Morgan MD on July 24, 2017 at 18:51 Board Certified Radiologist. This report was verified electronically.
[2017-07-24] MEDS: AZITHROMYCIN 500 MG/NS 250 ML IV SCH ×2 (22:06)
[2017-07-24] MEDS: PRAVASTATIN SOD 40 MG TAB PO SCH (22:07)
[2017-07-25] VITALS (18 sets, daily range): BP systolic 103–125; BP diastolic 51–59; PULSE 48–61; RESP 0–18; TEMP 96.5–98.3; O2SAT 92–96
[2017-07-25] MEDS: PIPERACIL-TAZO 2.25 GM PREMIX 50 ML IV SCH ×4 (02:00→20:47)
[2017-07-25] MEDS: fentaNYL DRIP 250 ML IV PRN (02:09)
[2017-07-25] MEDS: RESP: ALBUTEROL 2.5 MG/IPRATROPIUM 0.5 MG NEB (SCH) NEB ×5 (03:43→20:16)
--- NOTE | 2017-07-25 05:07 | RADRPT ---
EXAM DATE/TIME: 07/25/2017 04:00 [facility] COMPARISON: CHEST SINGLE AP, July 24, 2017, 15:43. INDICATIONS : Shortness of breath. MEDICAL HISTORY : Cardiovascular disease. Diabetes mellitus type II SURGICAL HISTORY : None. ENCOUNTER: Subsequent ACUITY: 1 week PAIN SCORE: 0/10 LOCATION: Bilateral chest FINDINGS: The inferior aspect of the chest was not included on these images. The patient is rotated towards the left. ET tube tip is 6 cm from the ellie. There is an NG tube in place. There is a right internal j ugular central line present. There is diffuse increased density throughout the lungs. The heart size is difficult to assess. The heart size is likely enlarged. CONCLUSION: Diffuse consolidation which appears unchanged from the prior exam. Edema can be suspected. To Leija MD on July 25, 2017 at 5:04 Board Certified Radiologist. This report was verified electronically.
[2017-07-25] MEDS: LEVOTHYROXINE SODIUM 50 MCG TAB PO SCH (05:42)
[2017-07-25] MEDS: HEPARIN SODIUM - SQ 10,000 UNITS/ML VIAL SQ SCH ×3 (05:43→21:01)
[2017-07-25] MEDS: hydrALAZINE HCL 25 MG TAB PO SCH ×4 (05:43→21:01)
[2017-07-25] MEDS: INSULIN ASPART SUPPLEMENTAL SCALE SQ SCH ×4 (05:55→17:30)
[2017-07-25] MEDS: HYDROCHLOROTHIAZIDE 25 MG TAB PO SCH (07:47)
[2017-07-25] MEDS: ASPIRIN EC 81 MG TABEC PO SCH (07:47)
[2017-07-25] MEDS: predniSONE 5 MG TAB PO SCH (07:47)
[2017-07-25] MEDS: FAMOTIDINE 20 MG TAB PO SCH ×2 (07:47→21:01)
[2017-07-25] MEDS: CHLORHEXIDINE 0.12% (ORAL KIT) 15 ML CUP MT SCH ×2 (07:47→21:01)
[2017-07-25] MEDS: CALCIUM/VITAMIN D 250 MG/125 U TAB PO SCH ×2 (07:48→17:30)
[2017-07-25] MEDS: INSULIN DETEMIR 100 UNITS/ML VIAL SQ SCH ×2 (07:48→21:00)
[2017-07-25] MEDS: METOPROLOL TARTRATE 50 MG TAB PO SCH ×2 (07:48→21:01)
[2017-07-25] MEDS: CALCIUM ACETATE 667 MG CAP PO SCH ×3 (07:48→17:30)
[2017-07-25] MEDS: amLODIPine BESYLATE 5 MG TAB PO SCH (07:48)
[2017-07-25] MEDS: LINEZOLID 600 MG PREMIX 300 ML IV SCH ×2 (07:49→21:03)
[2017-07-25] MEDS: SODIUM CHLORIDE 0.9% FLUSH 10 ML FLUSH IV FLUSH SCH ×2 (07:49→21:02)
[2017-07-25] MEDS: SALMETEROL XINAFOATE 50 MCG DISKUS INH SCH ×2 (07:49→21:00)
[2017-07-25] MEDS: PROPOFOL 1000 MG/100 ML INJ 100 ML IV PRN ×9 (08:15→23:46)
[2017-07-25] MEDS: MANNITOL 12.5 GM/50 ML VIAL IV PRN (08:27)
[2017-07-25] MEDS: GENTAMICIN SULFATE (DIALYSIS USE ONLY) 20 MG/2 ML VIAL OTHER PRN (08:28)
[2017-07-25] MEDS: HEPARIN SODIUM - IV 10,000 UNITS/10 ML VIAL PRN (08:28)
[2017-07-25] MEDS: EPOETIN ALFA 10,000 UNITS/ML VIAL IV PUSH PRN (08:28)
[2017-07-25] MEDS: ALBUMIN 25% INJ 100 ML IV PRN ×2 (08:29→08:42)
[2017-07-25] MEDS: RESP: BUDESONIDE 0.5 MG/2 ML NEB NEB SCH ×2 (08:46→20:16)
--- NOTE | 2017-07-25 10:30 | HHI.NPPN ---
Subjective Renal Failure: Chronic, Acute Interval History Remains intubated, unresponsive. Had bronchoscopy this AM, due for left thoracentesis today. (Ania Sampson) Review of Systems General General Remarks unable to evaluate (Ania Sampson) Cardiovascular Cardiac: Edema (Ania Sampson) Objective Data Data 07/25/17 07/26/17 19:00 07:00 Intake Total 200 ml Balance 200 ml IV Total 200 ml Vital Signs Date Time Temp Pulse Resp B/P (MAP) Pulse Ox O2 Delivery O2 Flow Rate FiO2 07/25/17 10:00 53 07/25/17 08:49 95 40 07/25/17 08:00 48 07/25/17 08:00 96.9 48 13 103/51 (68) 93 07/25/17 08:00 40 07/25/17 06:00 49 07/25/17 04:00 52 07/25/17 04:00 98.0 52 11 125/55 (78) 92 07/25/17 04:00 40 07/25/17 02:00 56 07/25/17 01:13 96 40 07/25/17 00:00 52 07/25/17 00:00 98.3 52 14 117/57 (77) 95 07/25/17 00:00 40 07/24/17 22:00 57 07/24/17 20:48 95 40 07/24/17 20:00 40 07/24/17 20:00 98.1 57 11 125/56 (79) 95 07/24/17 20:00 50 07/24/17 18:00 51 07/24/17 16:00 98.1 59 15 106/53 (70) 93 07/24/17 16:00 40 07/24/17 16:00 98.1 07/24/17 16:00 59 07/24/17 15:15 100 100 07/24/17 14:52 94 40 07/24/17 14:00 56 07/24/17 12:00 40 07/24/17 12:00 52 07/24/17 12:00 97.1 52 18 125/58 (80) 94 07/24/17 11:51 93 40 (Ania Sampson) -: 07/24/17 0450 07/24/17 0430 Microbiology 07/24/17 Gram Stain - Final, Resulted 07/24/17 Bronchial Culture, Resulted Pending Imaging Last 72 hours Impressions Chest X-Ray 07/25/17 0600 Signed Impressions: Service Date/Time: Tuesday, July 25, 2017 04:00 - CONCLUSION: Diffuse consolidation which appears unchanged from the prior exam. Edema can be suspected. To Leija MD Chest Ultrasound 07/24/17 1600 Signed Impressions: Service Date/Time: Monday, July 24, 2017 17:18 - CONCLUSION: There is a moderate-sized right pleural effusion confirmed by ultrasound Rosalino Morgan MD Chest X-Ray 07/24/17 0600 Signed Impressions: Service Date/Time: Monday, July 24, 2017 04:01 - CONCLUSION: 1. Near- total opacification of the left chest likely related to diffuse atelectasis or consolidation. 2. Right consolidation or atelectasis especially at the base. Some degree of right effusion needs to be considered. To Leija MD Chest X-Ray 07/24/17 0000 Signed Impressions: Service Date/Time: Monday, July 24, 2017 15:43 - CONCLUSION: Slight improving aeration on the left. Dense consolidation persists. There is no pneumothorax.. Sherif Diaz MD FACR Chest Ultrasound 07/24/17 0000 Signed Impressions: Service Date/Time: Monday, July 24, 2017 17:30 - CONCLUSION: Moderate-sized pleural effusion with skin marking performed. Rosalino Morgan MD Chest X-Ray 07/23/17 0600 Signed Impressions: Service Date/Time: Sunday, July 23, 2017 03:39 - CONCLUSION: Worsening effusions and bibasilar consolidation. To Madera MD Upper Extremity Ultrasound 07/23/17 0000 Signed Impressions: Service Date/Time: Sunday, July 23, 2017 07:48 - CONCLUSION: No evidence of deep venous thrombosis within the upper extremities. Florin Michelle MD Tubes & Lines: Perma-Cath, Grant Drip Comment Propofol (Ania Sampson) Physical Exam General Appearance: Comfortable, Sleeping, Obese Appearance Remarks morbidly obese, intubated, unresponsive. (Ania Sampson) Eyes Eye Exam: Pupils Equal (Ania Sampson) Neck Neck Exam: Neck Supple (Ania SampsonP) Pulmonary Resp Exam: Crackles, Rhonchi, Decreased Bases, Diminished Breath Sounds Resp Remarks vented lung sounds (Ania Sampson SHIPPING SUPPORT) Cardiology CV Exam: Regular, Normal Sinus Rhythm (Ania Sampson SHIPPING SUPPORT) Gastrointestinal/Abdomen GI Exam: Soft, Non-Tender, Bowel Sounds Present (Ania SampsnoP) Musculoskeletal MS Exam: Normal Tone, Unable to Ambulate (Ania Sampson SHIPPING SUPPORT) Integumentary Skin Exam: Warm, Dry (Ania Sampson) Extremeties Extremities Exam: Pedal Pulses Palpable, Moderate Edema (Ania Sampson SHIPPING SUPPORT) Neurologic Neuro Exam: Unresponsive, Sedated (Ania Sampson) Assessment/Plan Assessment Summary: Anemia of CKD, Hypertension, Diabetes Mellitus Problem List: (1) EDITH (acute kidney injury) ICD Codes: N17.9 - Acute kidney failure, unspecified Status: Acute Plan: Has hx of renal transplant in 2000 and a hx of nephrectomy due to renal cell CA in 2017 Residual CKD, baseline appears to be 2.6-2.8 She may have suffered ATN or worsening chronic graft loss. She has become oliguric. HD started 07/21 and 07/22 Seen during dialysis today on a 3K, 350 BFR, 4L UF HD TTS as needed. Monitor renal function daily. It remains to be seen if her renal function will recover Monitor urine output, currently marginal output Avoid IVF, nephrotoxic agents Permcath in place on right On Calcium acetate with tube feeding,repeat phosphorus level is pending. (2) Diabetes ICD Codes: E11.9 - Type 2 diabetes mellitus without complications Status: Chronic Plan: Monitor glucose, maintain 140-180 mg/dL this admission (3) HTN (hypertension) ICD Codes: I10 - Essential (primary) hypertension Status: Chronic Plan: Continue medications as ordered, titrate as needed (4) H/O kidney transplant ICD Codes: Z94.0 - Kidney transplant status Status: Acute Plan: Patient has a failing allograft Continue immunosuppression, she is on prednisone and cyclosporine. Cellcept has been discontinued due to hx of RCC. Monitor cyclosporine level, repeat has been ordered (5) Pneumonia ICD Codes: J18.9 - Pneumonia, unspecified organism Plan: On Zyvoxx, Zithromax, and Cefazolin Chest xray reviewed, has pleural effusion, bilaterally; left side to be drained via thoracentesis today On 40% Fi02 Will most likely need trach this week. Continue vent bundle. (Ania Sampson) Plan patient was seen and examined. Agree with above. Seen during dialysis. Attempting fluid removal at dialysis. Had bronchoscopy. Repeat Cyclosporine level. CellCept stopped. (Antonio Velez MD) Problem Qualifiers (1) Diabetes: Ania Sampson Jul 25, 2017 10:30 Antonio Velez MD Jul 25, 2017 11:14
[2017-07-25] MEDS: FERROUS SULFATE 325 MG (65 MG ELEMENTAL IRON) TAB PO SCH ×2 (11:39→17:30)
[2017-07-25] MEDS ORDERED: LIDOCAINE HCL 2% 50 ML VIAL ONE (12:57)
[2017-07-25 13:33] LABS: AUTOMATED NEUTROPHIL # 4.5 TH/MM3 (1.8-7.7); BASOPHIL % 0.5 % (0.0-2.0); EOSINOPHIL # 0.2 TH/MM3 (0-0.4); EOSINOPHIL % 3.2 % (0.0-4.0); LYMPH % 7.2 % (9.0-44.0); LYMPHOCYTE # 0.4 TH/MM3 (1.0-4.8); MEAN CELL VOLUME 87.8 FL (80.0-100.0); MEAN CORPUSCULAR HEMOGLOBIN 28.1 PG (27.0-34.0); MEAN CORPUSCULAR HGB CONC 31.9 % (32.0-36.0); MEAN PLATELET VOLUME 7.9 FL (7.0-11.0); MONO % 9.6 % (0.0-8.0); MONOCYTE # 0.5 TH/MM3 (0-0.9); NEUT % 79.5 % (16.0-70.0); PLATELET COUNT 164 TH/MM3 (150-450); RED BLOOD COUNT 2.33 MIL/MM3 (4.00-5.30); RED CELL DISTRIBUTION WIDTH 14.4 % (11.6-17.2); WHITE BLOOD COUNT 5.7 TH/MM3 (4.0-11.0)
[2017-07-25 13:42] LABS: HEMATOCRIT 20.4 % (35.0-46.0); HEMOGLOBIN 6.5 GM/DL (11.6-15.3)
[2017-07-25 14:06] LABS: BICARBONATE 26.4 MEQ/L (21.0-32.0); CREATININE 2.73 MG/DL (0.50-1.00); MAGNESIUM 2.3 MG/DL (1.5-2.5); PHOSPHORUS 3.2 MG/DL (2.5-4.9)
--- NOTE | 2017-07-25 14:24 | RADRPT ---
EXAM DATE/TIME: 07/25/2017 12:49 [facility] COMPARISON: No previous studies available for comparison. INDICATIONS : Left pleural effusion. MEDICAL HISTORY : Hypercholesterolemia. Hypertension. Chronic obstructive pulmonary disease. Asthma. Sleep apnea. Renal failure. Osteoporosis. MRSA. Renal cell carcinoma. SURGICAL HISTORY : Tonsillectomy. Cholecystectomy. section. Kidney transplant. Dialysis. Fused lumbar spine. Ri ght nephrectomy. ENCOUNTER: Initial ACUITY: 1 day PAIN SCORE: Non-responsive LOCATION: Left chest FLUID: Total volume of 900 cc of clear, yellow fluid was removed. Fluid was sent to lab for ordered studies. TECHNIQUE: 1. Ultrasound guidance for thoracentesis. 2. Thoracentesis. The risks, benefits, and alternatives to ultrasound guided thoracentesis were explained to the patien t in lay simple terms, including the risk of bleeding and infection. Written and verbal informed con sent was obtained. Appropriate area for thoracentesis was marked under ultrasound guidance with the patient in the uprig ht position. Overlying skin was prepped and draped in the usual sterile fashion and with local anest hetic, a dermatotomy was made with an 11 blade scalpel. A 6 [place]i thoracentesis catheter was placed in the pleural space and fluid was removed. Catheter was then removed and a sterile dressing applie d. There were no immediate complications. The patient tolerated the procedure well and the left the ultrasound suite in stable condition. Chest radiograph is to be obtained. CONCLUSION: Uncomplicated ultrasound guided thoracentesis. Varghese Baker MD on July 25, 2017 at 14:22 Board Certified Radiologist. This report was verified electronically.
--- NOTE | 2017-07-25 14:27 | RADRPT ---
EXAM DATE/TIME: 07/25/2017 13:51 [facility] COMPARISON: CHEST SINGLE AP, July 25, 2017, 4:00. INDICATIONS : Left Pleural Effusion. Post Thoracentesis. MEDICAL HISTORY : Renal cell carcinoma. Cardiovascular disease Hypertension.COPD SURGICAL HISTORY : Cholecystectomy. Nephrectomy, right.kidney transplant. ENCOUNTER: Subsequent ACUITY: 1 week PAIN SCORE: Non-responsive. LOCATION: Bilateral chest FINDINGS: Single portable frontal view of the chest is degraded by breathing motion artifact in conjunction wit h the patient's body habitus. No pneumothorax seen. There is a masslike density projecting over the l eft hilum. Cardiomegaly with bilateral parenchymal consolidations remain. Right-sided dialysis cathet er. Tip of the endotracheal tube 5 cm from the ellie. Tip of the nasogastric tube courses off the in ferior margin of the film. CONCLUSION: 1. Limited study. 2. No pneumothorax. 3. Unchanged bilateral pulmonary infiltrates with cardiomegaly. 4. Masslike density projecting over the left hilum. Rosalino Draek Jr., MD on July 25, 2017 at 14:22 Board Certified Radiologist. This report was verified electronically.
[2017-07-25 14:43] LABS: TOTAL PROTEIN,PLEURAL FLUID 1.5 GM/DL
--- NOTE | 2017-07-25 14:45 | HHI.CCPN ---
Subjective Remarks/Hospital Course I was asked to see patient this evening due to excessive somnolence. She was protecting her airway adequately but otherwise unresponsive except to loud voice or noxious stimulation. She was just started back on dialysis after a renal transplant failed. She has a past medical history of hypertension, hyperlipidemia, depression, morbid obesity, CKD status post renal transplant, renal cell carcinoma status post right nephrectomy, diabetes mellitus and sleep apnea. She presented to the ER 2 days ago with persistent vomiting despite home medication with Zofran and Phenergan. Patient also complains of generalized abdominal pain, worst in the epigastric region. She was discharged from the hospital on 07/13 where she was treated for acute on chronic kidney injury, generalized weakness and hyperkalemia. She is chronically on 2-3 L nasal cannula at home with a history of asthma. She denies any fever/chills. H&H 7.6 /23.8 which is approximately patient's baseline. BUN/creatinine 86/3.89, patient's creatinine 2.66 on 07/13. Chest x-ray showed bibasilar airspace disease with possible bilateral pleural effusions. CT of the abdomen/pelvis with new bibasilar consolidating infiltrate and 3 cm left renal mass which is unchanged from previous. Presently, her respiratory effort is satisfactory and she controls her airway. Major concern is for CO2 retention. Subjective 07/22: Currently orotracheally intubated. On low dose propofol drip at 10 mcg/ kg per minute. Arousable on the ventilator and appointments. Will initiate tube feeding today. 07/23: Afebrile. Patient received transfusion yesterday 1 unit of packed red blood cells hemoglobin stable this a.m.. Patient underwent hemodialysis yesterday approximately 4500 cc removed. Patient continues on sedation for ventilator synchrony. Chest x-ray appears to be worsening. CT brain revealed no abnormalities. 07/24: Afebrile. Chest x-ray showed complete near-complete opacification of the left lung, bronchoscopy planned. Patient noted to have pleural effusions right, ultrasound quantification of pleural effusion pending. Mucomyst initiated. 07/25: Patient's Hgb 6.1 this am, planned in one unit of PRBC. Patient noted large left effusion greater than 770 cc. Thoracentesis performed approximately 990 cc removed from left side. Chest x-ray pending post procedure. BAL performed yesterday, results pending. Objective Vital Signs Date Time Temp Pulse Resp B/P (MAP) Pulse Ox O2 Delivery O2 Flow Rate FiO2 07/25/17 12:05 93 40 07/25/17 12:00 97.5 61 14 109/53 (71) 07/23/17 03:00 10.00 07/21/17 18:42 Nasal Cannula Intake and Output 07/25/17 07/25/17 07/25/17 07:59 15:59 23:59 Intake Total 50 ml 400 ml Output Total 150 ml 4200 ml Balance -100 ml -3800 ml Result Diagram: 07/25/17 1255 07/25/17 1255 Other Results Microbiology Date/Time Source Procedure Growth Status 07/22/17 20:05 Nasal Aspirate Influenza Types A,B Antigen (DERRICK) - Final NEGATIVE FOR FLU A AND B ANTIGEN.... Complete 07/22/17 20:05 Urine Clean Catch Legionella Antigen - Final PRESUMPTIVE NEGATIVE FOR LEGIONELLA P... Complete 07/22/17 20:05 Urine Clean Catch Streptococcus pneumoniae Antigen (M - Final PRESUMPTIVE NEGATIVE FOR STREPTOCOCCU... Complete Laboratory Tests Test 07/25/17 05:35 Blood Gas Puncture Site RT RADIAL Blood Gas Patient Temperature 98.6 Blood Gas HCO3 24 mmol/L (22-26) Blood Gas Base Excess -0.9 mmol/L (-2-2) Blood Gas Oxygen Saturation 92 % (90-100) Arterial Blood pH 7.33 (7.380-7.420) Arterial Blood Partial Pressure CO2 47 mmHg (38-42) Arterial Blood Partial Pressure O2 72 mmHg (61-120) Arterial Blood Oxygen Content 8.8 Vol % (12.0-20.0) Arterial Blood Carboxyhemoglobin 1.2 % (0-4) Arterial Blood Methemoglobin 1.5 % (0-2) Blood Gas Hemoglobin 6.7 G/DL (12.0-16.0) Oxygen Delivery Device VENTILATOR Blood Gas Ventilator Setting PRVC/AC Blood Gas Inspired Oxygen 40 % Imaging Last Impressions Chest X-Ray 07/24/17 0600 Signed Impressions: Service Date/Time: Monday, July 24, 2017 04:01 - CONCLUSION: 1. Near- total opacification of the left chest likely related to diffuse atelectasis or consolidation. 2. Right consolidation or atelectasis especially at the base. Some degree of right effusion needs to be considered. To Leija MD Upper Extremity Ultrasound 07/23/17 0000 Signed Impressions: Service Date/Time: Sunday, July 23, 2017 07:48 - CONCLUSION: No evidence of deep venous thrombosis within the upper extremities. Florin Michelle MD Head CT 07/22/17 0000 Signed Impressions: Service Date/Time: Sunday, July 23, 2017 03:07 - CONCLUSION: No acute intracranial abnormality demonstrated. To Madera MD Catheter Placement X-Ray 07/21/17 0000 Signed Impressions: Service Date/Time: Friday, July 21, 2017 14:47 - CONCLUSION: Uncomplicated PermaCath placement as above. Idris Diaz MD Abdomen/Pelvis CT 07/19/17 0000 Signed Impressions: Service Date/Time: Wednesday, July 19, 2017 16:25 - CONCLUSION: 1. Status post right nephrectomy with no acute findings in the right renal fossa. 2. New bibasilar consolidating infiltrate and small bilateral effusions. 3. Anasarca 4. 3 cm left renal mass; unchanged. 5. Status post cholecystectomy. Schuyler Saucedo MD Last Impressions Chest X-Ray 07/23/17 0600 Signed Impressions: Service Date/Time: Sunday, July 23, 2017 03:39 - CONCLUSION: Worsening effusions and bibasilar consolidation. To Madera MD Head CT 07/22/17 0000 Signed Impressions: Service Date/Time: Sunday, July 23, 2017 03:07 - CONCLUSION: No acute intracranial abnormality demonstrated. To Madera MD Catheter Placement X-Ray 07/21/17 0000 Signed Impressions: Service Date/Time: Friday, July 21, 2017 14:47 - CONCLUSION: Uncomplicated PermaCath placement as above. Idris Diaz MD Abdomen/Pelvis CT 07/19/17 0000 Signed Impressions: Service Date/Time: Wednesday, July 19, 2017 16:25 - CONCLUSION: 1. Status post right nephrectomy with no acute findings in the right renal fossa. 2. New bibasilar consolidating infiltrate and small bilateral effusions. 3. Anasarca 4. 3 cm left renal mass; unchanged. 5. Status post cholecystectomy. Schuyler Saucedo MD Last Impressions Catheter Placement X-Ray 07/21/17 0000 Signed Impressions: Service Date/Time: Friday, July 21, 2017 14:47 - CONCLUSION: Uncomplicated PermaCath placement as above. Idris Diaz MD Chest X-Ray 07/19/17 0000 Signed Impressions: Service Date/Time: Wednesday, July 19, 2017 16:37 - CONCLUSION: Bibasilar airspace disease with possible bilateral effusions. Mild cardiomegaly. Schuyler Saucedo MD Abdomen/Pelvis CT 07/19/17 0000 Signed Impressions: Service Date/Time: Wednesday, July 19, 2017 16:25 - CONCLUSION: 1. Status post right nephrectomy with no acute findings in the right renal fossa. 2. New bibasilar consolidating infiltrate and small bilateral effusions. 3. Anasarca 4. 3 cm left renal mass; unchanged. 5. Status post cholecystectomy. Schuyler Saucedo MD Objective Remarks GENERAL: 56-year-old female, resting in bed orotracheally intubated and sedated SKIN: Warm and dry. HEAD: Atraumatic. Normocephalic. EYES: Pupils 2 mm, equal round and reactive. Extraocular motions intact ENT: Throat without erythema. Airway widely patent. NECK: Trachea midline. Supple, nontender, right IJ tunneled cuffed catheter in place for hemodialysis CARDIOVASCULAR: Bradycardic, RR. S1, S2 no S4. Without murmurs, clicks, gallops or rub. Unable to assess JVD secondary to body habitus RESPIRATORY:. Breath sounds equal bilaterally. No wheezes, rales, or rhonchi. Diminished throughout. GASTROINTESTINAL: Abdomen obese; soft, nontender, nondistended. Fixed mass in hernia right side, nontender. BS active. MUSCULOSKELETAL: 2+ peripheral edema left upper extremity, trace to 1+ right upper extremity chronic. Well perfused. NEUROLOGICAL: RASS -2. Cranial nerves II through XII appear grossly intact. Positive gag and corneal reflex. Withdraws to pain in all 4 extremities on sedation currently A/P Assessment and Plan Neuro/Psych: Acute toxic metabolic encephalopathy Depression disorder NOS Currently on propofol/fentanyl drips for sedation/analgesia while intubated Goal of RASS -2 Daily sedation vacation Holding sertraline 200 mg by mouth daily for depression. While on linezolid. Resume when clinically indicated CV: Hypertension Dyslipidemia Currently on amlodipine 10 mg daily, hydralazine 50 mg every 8 hours, HCTZ 25 mg daily and metoprolol 50 mg by mouth twice a day for hypertension. Currently on Pravachol 40 mg daily for dyslipidemia. NS IVF discontinued 07/24 Resp: Acute on chronic hypoxemic respiratory failure Chronic home O2 dependency at 3 L at home History of asthma PRVC 18/550/0.9/5/40 Ventilator bundle Albuterol/ipratropium aerosols every 4 hours with albuterol aerosols every 2 hours. Dyspnea Add budesonide 0.5/2 1 inhalation twice a day On fluticasone 44 g 2 puffs twice a day and salmeterol 50 g inhaled twice a day at home CXR 07/23 worsening effusions and bibasilar consolidation small right and moderate left pleural effusions 07/23 US guided marking of lungs 770cc on left, 276 on right GI: Hypoalbuminemia Initiate tube feeding with Suplena goal 55 cc an hour, currently of 40 cc/hour- normal residual Famotidine for GI prophylaxis Docusate sodium/senna 1 tablet twice a day for bowel regimen : Maintain Grant catheter Endo: Diabetes mellitus Hypothyroidism Currently on insulin detemir 5 units twice a day with Novulog sliding scale insulin every 6 hours to maintain euglycemia On detemir 50 units in a.m. 4 units at night at home along with insulin Aspart sliding scale insulin Continue levothyroxine 50 mcg by mouth daily for hypothyroidism. 07/23 TSH- WNL. Renal: History renal cell cancer 3 cm left renal mass Status post right nephrectomy May 2017 for renal cell carcinoma Failing autologous renal transplant on chronic immunosuppression Currently on cyclosporine 75 mg twice a day. Holding CellCept 500 mg twice a day. Currently receiving hemodialysis per Dr. Phelan yesterday 07/21. 07/22 IHD 4500 cc Urine output last 24 hours-275cc Follow creatinine daily. Heme: Anemia of chronic kidney disease Continue iron sulfate 325 mg twice a day Serial hemoglobins daily. Maintain hemoglobin greater than 7 ID: Pneumonia Currently on linezolid, azithromycin and piperacillin/tazobactam 07/20 Blood cultures 2- NGTD CMV pending 07/22 Sputum- pending 07/22 Influenza -neg 07/22-Legionella, pneumococcal-pending Infectious disease following FEN: Hyperphosphatemia Continue phosphate binder Replace electrolytes as clinically indicated MSK: Elevated BMI greater than 50 Charcot foot Weight loss encouraged. PT evaluate and treat Access - Utilize peripheral IV. Central line if indicated Prophylaxis - GI - famotidine -DVT- SCD/heparin subcutaneous Dispo: D/W Marlene CODE ENFORCEMENT INSPECTOR at bedside This patient remains critically ill with one or more organ systems which are or may become a threat to life. I have spent in excess of 37 minutes discontinuously in the care and management of this patient. This time is exclusive of procedures, and includes, but is not limited to, evaluation of the patient, review of the medical record, discussions with family, consultants, nursing staff, or respiratory therapy, and documentation in the medical record. Discussed with CODE ENFORCEMENT INSPECTOR at bedside (Marlene) Physician Vivian Goff MD Jul 25, 2017 14:45
[2017-07-25 14:50] LABS: PLEURAL FLUID HISTIOCYTES 22 %; PLEURAL FLUID LYMPHS 38 %; PLEURAL FLUID MESOTHELIAL 8 %; PLEURAL FLUID MONOS 14 %; PLEURAL FLUID POLYS (SEGS) 18 %
[2017-07-25 14:51] LABS: PLEURAL FLUID RBC 170 /MM3 (0-0); PLEURAL FLUID WBC 360 /MM3 (0-10)
--- NOTE | 2017-07-25 18:11 | HHI.PR ---
Addendum to Inpatient Note Additional Information pt was seen around 1530 full note to follow Geena Price MD Jul 25, 2017 18:11
[2017-07-25 18:50] LABS: AUTOMATED NEUTROPHIL # 3.9 TH/MM3 (1.8-7.7); BASOPHIL % 0.5 % (0.0-2.0); EOSINOPHIL # 0.2 TH/MM3 (0-0.4); EOSINOPHIL % 4.2 % (0.0-4.0); LYMPH % 9.2 % (9.0-44.0); LYMPHOCYTE # 0.5 TH/MM3 (1.0-4.8); MEAN CELL VOLUME 86.8 FL (80.0-100.0); MEAN CORPUSCULAR HEMOGLOBIN 34.2 PG (27.0-34.0); MEAN PLATELET VOLUME 7.9 FL (7.0-11.0); MONO % 8.4 % (0.0-8.0); MONOCYTE # 0.4 TH/MM3 (0-0.9); NEUT % 77.7 % (16.0-70.0); PLATELET COUNT 157 TH/MM3 (150-450); RED BLOOD COUNT 2.35 MIL/MM3 (4.00-5.30); RED CELL DISTRIBUTION WIDTH 15.4 % (11.6-17.2); WHITE BLOOD COUNT 5.1 TH/MM3 (4.0-11.0)
[2017-07-25] MEDS ORDERED: POTASSIUM CHLORIDE 20 MEQ PWD PACKET PO ONE (20:00)
[2017-07-25 20:01] LABS: MEAN CORPUSCULAR HGB CONC 39.4 % (32.0-36.0)
[2017-07-25 20:06] LABS: HEMATOCRIT 20.4 % (35.0-46.0)
[2017-07-25 20:19] LABS: ACANTHOCYTES 3+ (NORMAL)
[2017-07-25] MEDS: AZITHROMYCIN 500 MG/NS 250 ML IV SCH ×2 (21:01)
[2017-07-25] MEDS: PRAVASTATIN SOD 40 MG TAB PO SCH (21:02)
--- NOTE | 2017-07-25 22:41 | HHI.IDPN ---
Subjective Subjective Remarks pt remains on vent sp L sided thoracocenthesis fluid more cw transsudate sputu clx with nl resp wali Antibiotics zithromax zyvox zosyn Past Medical History ESRD renla allograft renal cell carcinoma May 2017 radical right nephrectomy for renal cell Cancer in May 2017 Allergies: Coded Allergies: adhesive (Unverified Allergy, Severe, SILK TAPE, 07/07/17) NSAIDS (Non-Steroidal Anti-Inflamma (Verified Adverse Reaction, Severe, Nausea/Vomiting, 07/07/17) Objective . Vital Signs Date Time Temp Pulse Resp B/P (MAP) Pulse Ox O2 Delivery O2 Flow Rate FiO2 07/25/17 20:16 96 40 07/25/17 18:00 55 07/25/17 16:00 95 40 07/25/17 16:00 52 07/25/17 16:00 40 07/25/17 16:00 96.5 52 0 119/57 (77) 95 07/25/17 15:02 96.5 56 18 107/52 95 07/25/17 14:48 96.6 57 18 117/55 95 07/25/17 14:00 55 07/25/17 12:05 93 40 07/25/17 12:00 97.5 61 14 109/53 (71) 94 07/25/17 12:00 40 07/25/17 12:00 61 07/25/17 10:00 53 07/25/17 08:49 95 40 07/25/17 08:00 48 07/25/17 08:00 96.9 48 13 103/51 (68) 93 07/25/17 08:00 40 07/25/17 06:00 49 07/25/17 04:00 52 07/25/17 04:00 98.0 52 11 125/55 (78) 92 07/25/17 04:00 40 07/25/17 02:00 56 07/25/17 01:13 96 40 07/25/17 00:00 52 07/25/17 00:00 98.3 52 14 117/57 (77) 95 07/25/17 00:00 40 07/25/17 07/25/17 07/26/17 15:00 23:00 07:00 Intake Total 580 ml 1174 ml Output Total 4200 ml 150 ml Balance -3620 ml 1024 ml IV Total 550 ml 362 ml Tube Feeding 202 ml Packed Cells 400 ml Blood Product IV Normal Saline Flush 30 ml 30 ml Other 180 ml Output Urine Total 150 ml Hemodialysis 4200 ml # Bowel Movements 1 . Laboratory Tests Test 07/24/17 04:50 07/25/17 12:55 07/25/17 18:40 White Blood Count 6.1 TH/MM3 5.7 TH/MM3 5.1 TH/MM3 Red Blood Count 2.52 MIL/MM3 2.33 MIL/MM3 2.35 MIL/MM3 Hemoglobin 7.1 GM/DL 6.5 GM/DL 8.0 GM/DL Hematocrit 22.0 % 20.4 % 20.4 % Mean Corpuscular Volume 87.3 FL 87.8 FL 86.8 FL Mean Corpuscular Hemoglobin 28.2 PG 28.1 PG 34.2 PG Mean Corpuscular Hemoglobin Concent 32.2 % 31.9 % 39.4 % Red Cell Distribution Width 14.3 % 14.4 % 15.4 % Platelet Count 158 TH/MM3 164 TH/MM3 157 TH/MM3 Mean Platelet Volume 8.3 FL 7.9 FL 7.9 FL Neutrophils (%) (Auto) 74.4 % 79.5 % 77.7 % Lymphocytes (%) (Auto) 12.8 % 7.2 % 9.2 % Monocytes (%) (Auto) 9.2 % 9.6 % 8.4 % Eosinophils (%) (Auto) 2.8 % 3.2 % 4.2 % Basophils (%) (Auto) 0.8 % 0.5 % 0.5 % Neutrophils # (Auto) 4.6 TH/MM3 4.5 TH/MM3 3.9 TH/MM3 Lymphocytes # (Auto) 0.8 TH/MM3 0.4 TH/MM3 0.5 TH/MM3 Monocytes # (Auto) 0.6 TH/MM3 0.5 TH/MM3 0.4 TH/MM3 Eosinophils # (Auto) 0.2 TH/MM3 0.2 TH/MM3 0.2 TH/MM3 Basophils # (Auto) 0.0 TH/MM3 0.0 TH/MM3 0.0 TH/MM3 CBC Comment DIFF FINAL DIFF FINAL AUTO DIFF Differential Comment AUTO DIFF CONFIRMED Platelet Estimate NORMAL Platelet Morphology Comment NORMAL Acanthocytes 3+ Hematology Comments Laboratory Tests Test 07/24/17 04:30 07/25/17 12:55 Blood Urea Nitrogen 53 MG/DL 40 MG/DL Creatinine 3.51 MG/DL 2.73 MG/DL Random Glucose 236 MG/DL 209 MG/DL Calcium Level 7.9 MG/DL 8.0 MG/DL Sodium Level 137 MEQ/L 135 MEQ/L Potassium Level 3.6 MEQ/L 3.4 MEQ/L Chloride Level 101 MEQ/L 99 MEQ/L Carbon Dioxide Level 26.3 MEQ/L 26.4 MEQ/L Anion Gap 10 MEQ/L 10 MEQ/L Estimat Glomerular Filtration Rate 13 ML/MIN 18 ML/MIN Phosphorus Level 3.2 MG/DL Magnesium Level 2.3 MG/DL Microbiology Date/Time Source Procedure Growth Status 07/25/17 13:19 Fluid Pleural Fluid Fungal Smear Pending Received 07/25/17 13:19 Fluid Pleural Fluid Fungal Culture Pending Received 07/25/17 13:19 Fluid Pleural Fluid Acid Fast Stain Pending Received 07/25/17 13:19 Fluid Pleural Fluid Mycobacterial Culture Pending Received 07/25/17 13:19 Fluid Pleural Fluid Gram Stain - Final Resulted 07/25/17 13:19 Fluid Pleural Fluid Body Fluid Culture Pending Resulted 07/24/17 16:20 Bronchial Washings Bronchial Gram Stain - Final Resulted 07/24/17 16:20 Bronchial Washings Bronchial Bronchial Culture - Preliminary NO GROWTH IN 24 HOURS. Resulted 07/25/17 16:44 Urine Clean Catch Urine Culture Pending Received Imaging Last Impressions Chest X-Ray 07/25/17 0600 Signed Impressions: Service Date/Time: Tuesday, July 25, 2017 04:00 - CONCLUSION: Diffuse consolidation which appears unchanged from the prior exam. Edema can be suspected. To Leija MD Thoracentesis Ultrasound 07/25/17 0000 Signed Impressions: Service Date/Time: Tuesday, July 25, 2017 12:49 - CONCLUSION: Uncomplicated ultrasound guided thoracentesis. Varghese Baker MD Chest Ultrasound 07/24/17 1600 Signed Impressions: Service Date/Time: Monday, July 24, 2017 17:18 - CONCLUSION: There is a moderate-sized right pleural effusion confirmed by ultrasound Rosalino Morgan MD Upper Extremity Ultrasound 07/23/17 0000 Signed Impressions: Service Date/Time: Sunday, July 23, 2017 07:48 - CONCLUSION: No evidence of deep venous thrombosis within the upper extremities. Florin Michelle MD Head CT 07/22/17 0000 Signed Impressions: Service Date/Time: Sunday, July 23, 2017 03:07 - CONCLUSION: No acute intracranial abnormality demonstrated. To Madera MD Catheter Placement X-Ray 07/21/17 0000 Signed Impressions: Service Date/Time: Friday, July 21, 2017 14:47 - CONCLUSION: Uncomplicated PermaCath placement as above. Idris Diaz MD Abdomen/Pelvis CT 07/19/17 0000 Signed Impressions: Service Date/Time: Wednesday, July 19, 2017 16:25 - CONCLUSION: 1. Status post right nephrectomy with no acute findings in the right renal fossa. 2. New bibasilar consolidating infiltrate and small bilateral effusions. 3. Anasarca 4. 3 cm left renal mass; unchanged. 5. Status post cholecystectomy. Schuyler Saucedo MD Physical Exam CONSTITUTIONAL/GENERAL: This is a morbidly obese patient, in no apparent distress. Intubated TUBES/LINES/DRAINS: SKIN: No jaundice, rashes, or lesions. Skin temperature appropriate. Not diaphoretic. HEAD: Atraumatic. Normocephalic. EYES: Pupils equal and round and reactive. Extraocular motions intact. No scleral icterus. No injection or drainage. Fundi not examined. ENT: Hearing grossly normal. Nose without bleeding or purulent drainage. Throat without visible erythema, exudates, masses, or lesions. CARDIOVASCULAR: Regular rate and rhythm without murmurs, gallops, or rubs. No JVD. Peripheral pulses symmetric. RESPIRATORY/CHEST: Symmetric, unlabored respirations. Clear to auscultation. Breath sounds equal bilaterally. No wheezes, rales, or rhonchi. GASTROINTESTINAL: Abdomen soft, non-tender, nondistended Its markely obese and degree of obesty precludes examination of organomegaly, or palpable masses. No guarding. Bowel sounds present. MUSCULOSKELETAL: Extremities without clubbing, cyanosis, or edema. No joint tenderness or effusion noted. No calf tenderness. No mottling or clubbing. LYMPHATICS: No palpable cervical or supraclavicular adenopathy. NEUROLOGICAL: unresponsive Eyes closed. Not follows commands. PSYCHIATRIC:unable to assess Assessment & Plan Remarks PNA ARF/CKD, transpalnt failure starte on HD Permacath placed 07/21 Immunosuppresed Renal allograft Renal ca sp R nephrectomy 2 mos ago Acute hypercapnic resp failure avoid neprotoxins: will dc vancomycin dc zyvox cont zosyn cont zithromax fu sputum clx fu flu/leg / penumococcus fu P clx dw Geena Jama MD Jul 25, 2017 22:41
[2017-07-26] VITALS (26 sets, daily range): BP systolic 95–125; BP diastolic 45–58; PULSE 42–47; RESP 9–18; TEMP 94.4–98.7; O2SAT 92–98
[2017-07-26] MEDS: RESP: ALBUTEROL 2.5 MG/IPRATROPIUM 0.5 MG NEB (SCH) NEB (01:08)
[2017-07-26] MEDS: INSULIN ASPART SUPPLEMENTAL SCALE SQ SCH ×4 (01:25→17:37)
[2017-07-26] MEDS: PIPERACIL-TAZO 2.25 GM PREMIX 50 ML IV SCH ×4 (01:25→22:06)
[2017-07-26] MEDS: CHLORHEXIDINE GLUCONATE 2 % 1 PACK (2 CLOTHS)(taper/protocol) TOPICAL SCH (01:26)
[2017-07-26] MEDS: PROPOFOL 1000 MG/100 ML INJ 100 ML IV PRN ×6 (01:37→16:50)
--- NOTE | 2017-07-26 04:46 | RADRPT ---
EXAM DATE/TIME: 07/26/2017 03:13 [facility] COMPARISON: CHEST SINGLE AP, July 25, 2017, 4:00. INDICATIONS : Short of breath. MEDICAL HISTORY : Renal cell carcinoma. Cardiovascular disease Hypertension.COPD SURGICAL HISTORY : Cholecystectomy. Nephrectomy, right.kidney transplant. ENCOUNTER: Subsequent ACUITY: 1 week PAIN SCORE: 0/10 LOCATION: Bilateral chest FINDINGS: The inferior aspect of the chest is not included on this chest x-ray. ET tube and right internal jugu lar central line are well placed. The NG tube can be seen to the inferior aspect of the image. The he art size is enlarged. There is hazy density seen throughout both lungs. CONCLUSION: Cardiomegaly with diffuse increased opacity likely related to CHF. Bilateral effusions can be conside red. To Leija MD on July 26, 2017 at 4:43 Board Certified Radiologist. This report was verified electronically.
[2017-07-26] MEDS: hydrALAZINE HCL 25 MG TAB PO SCH ×3 (05:34→22:09)
[2017-07-26] MEDS: LEVOTHYROXINE SODIUM 50 MCG TAB PO SCH (05:35)
[2017-07-26] MEDS: HEPARIN SODIUM - SQ 10,000 UNITS/ML VIAL SQ SCH ×3 (05:36→22:09)
[2017-07-26] MEDS: CHLORHEXIDINE 0.12% (ORAL KIT) 15 ML CUP MT SCH ×2 (08:00→22:06)
[2017-07-26] MEDS: amLODIPine BESYLATE 5 MG TAB PO SCH (08:25)
[2017-07-26] MEDS: METOPROLOL TARTRATE 50 MG TAB PO SCH ×2 (08:29→22:08)
[2017-07-26] MEDS: predniSONE 5 MG TAB PO SCH (08:30)
[2017-07-26] MEDS: CALCIUM/VITAMIN D 250 MG/125 U TAB PO SCH ×2 (08:30→17:37)
[2017-07-26] MEDS: CALCIUM ACETATE 667 MG CAP PO SCH ×3 (08:30→17:37)
[2017-07-26] MEDS: HYDROCHLOROTHIAZIDE 25 MG TAB PO SCH (08:30)
[2017-07-26] MEDS: INSULIN DETEMIR 100 UNITS/ML VIAL SQ SCH ×2 (08:31→21:00)
[2017-07-26] MEDS: FAMOTIDINE 20 MG TAB PO SCH ×2 (08:31→22:10)
[2017-07-26] MEDS: ASPIRIN EC 81 MG TABEC PO SCH (08:31)
[2017-07-26] MEDS: RESP: BUDESONIDE 0.5 MG/2 ML NEB NEB SCH ×2 (08:43→20:24)
[2017-07-26] MEDS: SALMETEROL XINAFOATE 50 MCG DISKUS INH SCH ×2 (09:00→21:00)
[2017-07-26] MEDS: SODIUM CHLORIDE 0.9% FLUSH 10 ML FLUSH IV FLUSH SCH ×2 (09:00→22:06)
[2017-07-26 10:12] LABS: HEMATOCRIT 23.5 % (35.0-46.0); HEMOGLOBIN 7.4 GM/DL (11.6-15.3); MEAN CELL VOLUME 86.5 FL (80.0-100.0); MEAN CORPUSCULAR HEMOGLOBIN 27.4 PG (27.0-34.0); MEAN CORPUSCULAR HGB CONC 31.7 % (32.0-36.0); MEAN PLATELET VOLUME 7.6 FL (7.0-11.0); PLATELET COUNT 162 TH/MM3 (150-450); RED BLOOD COUNT 2.72 MIL/MM3 (4.00-5.30); RED CELL DISTRIBUTION WIDTH 15.4 % (11.6-17.2); WHITE BLOOD COUNT 5.9 TH/MM3 (4.0-11.0)
[2017-07-26 10:40] LABS: BICARBONATE 27.2 MEQ/L (21.0-32.0); CALCIUM 8.1 MG/DL (8.5-10.1); CREATININE 2.92 MG/DL (0.50-1.00); MAGNESIUM 2.3 MG/DL (1.5-2.5); PHOSPHORUS 3.4 MG/DL (2.5-4.9)
[2017-07-26] MEDS: FERROUS SULFATE 325 MG (65 MG ELEMENTAL IRON) TAB PO SCH ×2 (13:31→17:37)
[2017-07-26 13:49] LABS: AMYLASE BODY FLUID 8 U/L; AMYLASE BODY FLUID TYPE PLEURAL
--- NOTE | 2017-07-26 14:25 | HHI.NPPN ---
Subjective Renal Failure: Chronic, Acute Interval History Remains intubated, unresponsive. Dialyzed yesterday. She is oliguric. Nearly 1 liter removed left thoracentesis yesterday. (Ania Sampson) Review of Systems General General Remarks unable to evaluate (Ania Sampson) Cardiovascular Cardiac: Edema (Ania Sampson) Objective Data Data 07/26/17 07/27/17 19:00 07:00 Output Total 200.0 ml Balance -200.0 ml Tube Feeding Residual Discard 200.0 ml Vital Signs Date Time Temp Pulse Resp B/P (MAP) Pulse Ox O2 Delivery O2 Flow Rate FiO2 07/26/17 14:00 47 07/26/17 12:38 94 40 07/26/17 12:00 47 07/26/17 12:00 97.0 47 9 113/54 (73) 96 07/26/17 12:00 40 07/26/17 11:00 45 07/26/17 10:01 43 07/26/17 10:00 43 07/26/17 09:01 42 07/26/17 09:00 42 07/26/17 08:47 92 40 07/26/17 08:00 40 07/26/17 08:00 97.0 42 18 104/51 (68) 95 07/26/17 08:00 42 07/26/17 07:00 43 07/26/17 06:00 43 07/26/17 04:00 43 07/26/17 04:00 98.2 43 18 95/45 (62) 98 07/26/17 04:00 40 07/26/17 03:53 97 40 07/26/17 02:00 44 07/26/17 01:08 97 40 07/26/17 00:00 40 07/26/17 00:00 98.2 44 18 119/55 (76) 96 07/26/17 00:00 44 07/25/17 22:00 54 07/25/17 20:16 96 40 07/25/17 20:00 53 07/25/17 20:00 40 07/25/17 20:00 97.6 53 18 125/59 (81) 95 07/25/17 18:00 55 07/25/17 16:00 95 40 07/25/17 16:00 52 07/25/17 16:00 40 07/25/17 16:00 96.5 52 0 119/57 (77) 95 07/25/17 15:02 96.5 56 18 107/52 95 07/25/17 14:48 96.6 57 18 117/55 95 (Ania Sampson) -: 07/26/17 0914 07/26/17 0914 Microbiology 07/25/17 Urine Culture - Preliminary, Resulted NO GROWTH IN 24 HOURS. Imaging Last 72 hours Impressions Chest X-Ray 07/26/17 0600 Signed Impressions: Service Date/Time: Wednesday, July 26, 2017 03:13 - CONCLUSION: Cardiomegaly with diffuse increased opacity likely related to CHF. Bilateral effusions can be considered. To Leija MD Chest X-Ray 07/25/17 0600 Signed Impressions: Service Date/Time: Tuesday, July 25, 2017 04:00 - CONCLUSION: Diffuse consolidation which appears unchanged from the prior exam. Edema can be suspected. To Leija MD Thoracentesis Ultrasound 07/25/17 0000 Signed Impressions: Service Date/Time: Tuesday, July 25, 2017 12:49 - CONCLUSION: Uncomplicated ultrasound guided thoracentesis. Varghese Baker MD Chest X-Ray 07/25/17 0000 Signed Impressions: Service Date/Time: Tuesday, July 25, 2017 13:51 - CONCLUSION: 1. Limited study. 2. No pneumothorax. 3. Unchanged bilateral pulmonary infiltrates with cardiomegaly. 4. Masslike density projecting over the left hilum. Rosalino Drake Jr., MD Chest Ultrasound 07/24/17 1600 Signed Impressions: Service Date/Time: Monday, July 24, 2017 17:18 - CONCLUSION: There is a moderate-sized right pleural effusion confirmed by ultrasound Rosalino Morgan MD Chest X-Ray 07/24/17 0600 Signed Impressions: Service Date/Time: Monday, July 24, 2017 04:01 - CONCLUSION: 1. Near- total opacification of the left chest likely related to diffuse atelectasis or consolidation. 2. Right consolidation or atelectasis especially at the base. Some degree of right effusion needs to be considered. To Leija MD Chest X-Ray 07/24/17 0000 Signed Impressions: Service Date/Time: Monday, July 24, 2017 15:43 - CONCLUSION: Slight improving aeration on the left. Dense consolidation persists. There is no pneumothorax.. Sherif Diaz MD FACR Chest Ultrasound 07/24/17 0000 Signed Impressions: Service Date/Time: Monday, July 24, 2017 17:30 - CONCLUSION: Moderate-sized pleural effusion with skin marking performed. Rosalino Morgan MD Tubes & Lines: Perma-Cath, Mcintosh Drip Comment Propofol, fentanyl (Camilla,Ania B. APPLICATION LEAD) Physical Exam General Appearance: Comfortable, Sleeping, Obese Appearance Remarks morbidly obese, intubated, unresponsive. (Camilla,Ania B. APPLICATION LEAD) Eyes Eye Exam: Pupils Equal (Camilla,Ania B. APPLICATION LEAD) Neck Neck Exam: Neck Supple (Camilla,Ania B. APPLICATION LEAD) Pulmonary Resp Exam: Crackles, Rhonchi, Decreased Bases, Diminished Breath Sounds Resp Remarks vented lung sounds (CamillaAnia B. APPLICATION LEAD) Cardiology CV Exam: Regular, Normal Sinus Rhythm (CamillaAnia B. APPLICATION LEAD) Gastrointestinal/Abdomen GI Exam: Soft, Non-Tender, Bowel Sounds Present (CamillaAnia B. APPLICATION LEAD) Musculoskeletal MS Exam: Normal Tone, Unable to Ambulate (CamillaAnia B. APPLICATION LEAD) Integumentary Skin Exam: Warm, Dry (CamillaAnia B. APPLICATION LEAD) Extremeties Extremities Exam: Pedal Pulses Palpable, Moderate Edema (CamillaAnia B. APPLICATION LEAD) Neurologic Neuro Exam: Unresponsive, Sedated (CamillaAnia B. APPLICATION LEAD) Assessment/Plan Assessment Summary: Anemia of CKD, Hypertension, Diabetes Mellitus Problem List: (1) EDITH (acute kidney injury) ICD Codes: N17.9 - Acute kidney failure, unspecified Status: Acute Plan: Has hx of renal transplant in 2000 and a hx of nephrectomy due to renal cell CA in 2016 Residual CKD, baseline appears to be 2.6-2.8 She may have suffered ATN or worsening chronic graft loss. She is oliguric. HD started 07/21 and 07/22, on TTS HD currently 4.2 L UF yesterday Monitor renal function daily. It remains to be seen if her renal function will recover Monitor urine output, has mcintosh catheter Avoid IVF, nephrotoxic agents Permcath in place on right Phosphorus is acceptable. She is on Calcium acetate with tube feedings (2) H/O kidney transplant ICD Codes: Z94.0 - Kidney transplant status Status: Acute Plan: Patient has a failing allograft Continue immunosuppression, she is on prednisone and cyclosporine. Cellcept has been discontinued due to hx of RCC. Monitor cyclosporine level, it is currently low. Increase cyclosporine to 100 mg BID (3) Diabetes ICD Codes: E11.9 - Type 2 diabetes mellitus without complications Status: Chronic Plan: Monitor glucose, maintain 140-180 mg/dL this admission (4) HTN (hypertension) ICD Codes: I10 - Essential (primary) hypertension Status: Chronic Plan: Continue medications as ordered, titrate as needed (5) Pneumonia ICD Codes: J18.9 - Pneumonia, unspecified organism Plan: On Zosyn and Zithromax Chest xray reviewed, s/p left thoracentesis, 975 ml removed On 40% Fi02 Will most likely need trach this week. Continue vent bundle. Plan p (Ania Sampson) Problem List: (1) EDITH (acute kidney injury) ICD Codes: N17.9 - Acute kidney failure, unspecified Status: Acute Plan: Has hx of renal transplant in 2000 and a hx of nephrectomy due to renal cell CA in 2017 Residual CKD, baseline appears to be 2.6-2.8 She may have suffered ATN or worsening chronic graft loss. She is oliguric. HD started 07/21 and 07/22, on TTS HD currently 4.2 L UF yesterday Monitor renal function daily. It remains to be seen if her renal function will recover Monitor urine output, has mcintosh catheter Avoid IVF, nephrotoxic agents Permcath in place on right Phosphorus is acceptable. She is on Calcium acetate with tube feedings (2) H/O kidney transplant ICD Codes: Z94.0 - Kidney transplant status Status: Acute Plan: Patient has a failing allograft Continue immunosuppression, she is on prednisone and cyclosporine. Cellcept has been discontinued due to hx of RCC. Monitor cyclosporine level, it is currently low. Increase cyclosporine to 100 mg BID (3) Diabetes ICD Codes: E11.9 - Type 2 diabetes mellitus without complications Status: Chronic Plan: Monitor glucose, maintain 140-180 mg/dL this admission (4) HTN (hypertension) ICD Codes: I10 - Essential (primary) hypertension Status: Chronic Plan: Continue medications as ordered, titrate as needed (5) Pneumonia ICD Codes: J18.9 - Pneumonia, unspecified organism Plan: On Zosyn and Zithromax Chest xray reviewed, s/p left thoracentesis, 975 ml removed On 40% Fi02 Will most likely need trach this week. Continue vent bundle. Plan patient was seen and examined. Remains on the ventilator. Monitor urine output and renal function. Dialysis as needed. Avoid nephrotoxic agents. Continue immunosuppressives as ordered. (Antonio Velez MD) Problem Qualifiers (1) Diabetes: Ania Sampson [facility] Jul 26, 2017 14:25 Antonio Velez MD Jul 26, 2017 19:11
--- NOTE | 2017-07-26 15:07 | HHI.CCPN ---
Subjective Remarks/Hospital Course I was asked to see patient this evening due to excessive somnolence. She was protecting her airway adequately but otherwise unresponsive except to loud voice or noxious stimulation. She was just started back on dialysis after a renal transplant failed. She has a past medical history of hypertension, hyperlipidemia, depression, morbid obesity, CKD status post renal transplant, renal cell carcinoma status post right nephrectomy, diabetes mellitus and sleep apnea. She presented to the ER 2 days ago with persistent vomiting despite home medication with Zofran and Phenergan. Patient also complains of generalized abdominal pain, worst in the epigastric region. She was discharged from the hospital on 07/13 where she was treated for acute on chronic kidney injury, generalized weakness and hyperkalemia. She is chronically on 2-3 L nasal cannula at home with a history of asthma. She denies any fever/chills. H&H 7.6 /23.8 which is approximately patient's baseline. BUN/creatinine 86/3.89, patient's creatinine 2.66 on 07/13. Chest x-ray showed bibasilar airspace disease with possible bilateral pleural effusions. CT of the abdomen/pelvis with new bibasilar consolidating infiltrate and 3 cm left renal mass which is unchanged from previous. Presently, her respiratory effort is satisfactory and she controls her airway. Major concern is for CO2 retention. Subjective 07/22: Currently orotracheally intubated. On low dose propofol drip at 10 mcg/ kg per minute. Arousable on the ventilator and appointments. Will initiate tube feeding today. 07/23: Afebrile. Patient received transfusion yesterday 1 unit of packed red blood cells hemoglobin stable this a.m.. Patient underwent hemodialysis yesterday approximately 4500 cc removed. Patient continues on sedation for ventilator synchrony. Chest x-ray appears to be worsening. CT brain revealed no abnormalities. 07/24: Afebrile. Chest x-ray showed complete near-complete opacification of the left lung, bronchoscopy planned. Patient noted to have pleural effusions right, ultrasound quantification of pleural effusion pending. Mucomyst initiated. 07/25: Patient's Hgb 6.1 this am, planned in one unit of PRBC. Patient noted large left effusion greater than 770 cc. Thoracentesis performed approximately 990 cc removed from left side. Chest x-ray pending post procedure. BAL performed yesterday, results pending. 07/26: Afebrile. JHONY globin stable as post transfusion yesterday. Patient noted to have high gastric residuals greater than 550 cc, Reglan initiated every 8 hours. IHD 4 L off yesterday. Chest x-ray continues to worsen. Objective Vital Signs Date Time Temp Pulse Resp B/P (MAP) Pulse Ox O2 Delivery O2 Flow Rate FiO2 07/26/17 14:39 92 40 07/26/17 14:00 47 07/26/17 12:00 97.0 9 113/54 (73) 07/23/17 03:00 10.00 Intake and Output 07/26/17 07/26/17 07/27/17 08:00 16:00 00:00 Intake Total 969 ml Output Total 425.0 ml Balance 544.0 ml Result Diagram: 07/26/17 0914 07/26/17 0914 Other Results Microbiology Date/Time Source Procedure Growth Status 07/24/17 16:20 Bronchial Washings Bronchial Gram Stain - Final Complete 07/24/17 16:20 Bronchial Washings Bronchial Bronchial Culture - Final NO GROWTH IN 48 HOURS. Complete Laboratory Tests Test 07/26/17 05:49 Blood Gas Puncture Site LT RADIAL Blood Gas Patient Temperature 98.6 Blood Gas HCO3 27 mmol/L (22-26) Blood Gas Base Excess 1.9 mmol/L (-2-2) Blood Gas Oxygen Saturation 91 % (90-100) Arterial Blood pH 7.38 (7.380-7.420) Arterial Blood Partial Pressure CO2 45 mmHg (38-42) Arterial Blood Partial Pressure O2 69 mmHg (61-120) Arterial Blood Oxygen Content 9.6 Vol % (12.0-20.0) Arterial Blood Carboxyhemoglobin 1.3 % (0-4) Arterial Blood Methemoglobin 1.5 % (0-2) Blood Gas Hemoglobin 7.4 G/DL (12.0-16.0) Oxygen Delivery Device VENTILATOR Blood Gas Ventilator Setting SEE COMMENT Blood Gas Inspired Oxygen 40 % Imaging Last Impressions Chest X-Ray 07/24/17 0600 Signed Impressions: Service Date/Time: Monday, July 24, 2017 04:01 - CONCLUSION: 1. Near- total opacification of the left chest likely related to diffuse atelectasis or consolidation. 2. Right consolidation or atelectasis especially at the base. Some degree of right effusion needs to be considered. To Leija MD Upper Extremity Ultrasound 07/23/17 0000 Signed Impressions: Service Date/Time: Sunday, July 23, 2017 07:48 - CONCLUSION: No evidence of deep venous thrombosis within the upper extremities. Florin Michelle MD Head CT 07/22/17 0000 Signed Impressions: Service Date/Time: Sunday, July 23, 2017 03:07 - CONCLUSION: No acute intracranial abnormality demonstrated. To Madera MD Catheter Placement X-Ray 07/21/17 0000 Signed Impressions: Service Date/Time: Friday, July 21, 2017 14:47 - CONCLUSION: Uncomplicated PermaCath placement as above. Idris Diaz MD Abdomen/Pelvis CT 07/19/17 0000 Signed Impressions: Service Date/Time: Wednesday, July 19, 2017 16:25 - CONCLUSION: 1. Status post right nephrectomy with no acute findings in the right renal fossa. 2. New bibasilar consolidating infiltrate and small bilateral effusions. 3. Anasarca 4. 3 cm left renal mass; unchanged. 5. Status post cholecystectomy. Schuyler Saucedo MD Last Impressions Chest X-Ray 07/23/17 0600 Signed Impressions: Service Date/Time: Sunday, July 23, 2017 03:39 - CONCLUSION: Worsening effusions and bibasilar consolidation. To Madera MD Head CT 07/22/17 0000 Signed Impressions: Service Date/Time: Sunday, July 23, 2017 03:07 - CONCLUSION: No acute intracranial abnormality demonstrated. To Madera MD Catheter Placement X-Ray 07/21/17 0000 Signed Impressions: Service Date/Time: Friday, July 21, 2017 14:47 - CONCLUSION: Uncomplicated PermaCath placement as above. Idris Diaz MD Abdomen/Pelvis CT 07/19/17 0000 Signed Impressions: Service Date/Time: Wednesday, July 19, 2017 16:25 - CONCLUSION: 1. Status post right nephrectomy with no acute findings in the right renal fossa. 2. New bibasilar consolidating infiltrate and small bilateral effusions. 3. Anasarca 4. 3 cm left renal mass; unchanged. 5. Status post cholecystectomy. Schuyler Saucedo MD Last Impressions Catheter Placement X-Ray 07/21/17 0000 Signed Impressions: Service Date/Time: Friday, July 21, 2017 14:47 - CONCLUSION: Uncomplicated PermaCath placement as above. Idris Diaz MD Chest X-Ray 07/19/17 0000 Signed Impressions: Service Date/Time: Wednesday, July 19, 2017 16:37 - CONCLUSION: Bibasilar airspace disease with possible bilateral effusions. Mild cardiomegaly. Schuyler Saucedo MD Abdomen/Pelvis CT 07/19/17 0000 Signed Impressions: Service Date/Time: Wednesday, July 19, 2017 16:25 - CONCLUSION: 1. Status post right nephrectomy with no acute findings in the right renal fossa. 2. New bibasilar consolidating infiltrate and small bilateral effusions. 3. Anasarca 4. 3 cm left renal mass; unchanged. 5. Status post cholecystectomy. Schuyler Saucedo MD Objective Remarks GENERAL: 56-year-old morbidly obese female, resting in bed orotracheally intubated and sedated SKIN: Warm and dry. HEAD: Atraumatic. Normocephalic. EYES: Pupils 2 mm, equal round and reactive. Extraocular motions intact ENT: Throat without erythema. Endotracheal intubation NECK: Trachea midline. Supple, nontender, right IJ tunneled cuffed catheter in place for hemodialysis CARDIOVASCULAR: Bradycardic, RR. S1, S2 no S4. Without murmurs, clicks, gallops or rub. Unable to assess JVD secondary to body habitus RESPIRATORY:. Breath sounds equal bilaterally. No wheezes, rales, or rhonchi. Diminished throughout. GASTROINTESTINAL: Abdomen obese; soft, nontender, nondistended. Fixed mass in hernia right side, nontender. BS active. MUSCULOSKELETAL: 2+ peripheral edema left upper extremity, trace to 1+ right upper extremity chronic. Well perfused. NEUROLOGICAL: RASS -3. Cranial nerves II through XII appear grossly intact. Positive gag and corneal reflex. Withdraws to pain in all 4 extremities on sedation currently. Sedation vacation patient is moving extremities spontaneously does not follow any commands A/P Assessment and Plan Neuro/Psych: Acute toxic metabolic encephalopathy Depression disorder NOS Currently on propofol/fentanyl drips for sedation/analgesia while intubated Goal of RASS -2 Daily sedation vacation Holding sertraline 200 mg by mouth daily for depression. While on linezolid. Resume when clinically indicated CV: Hypertension Dyslipidemia Currently on amlodipine 10 mg daily, hydralazine 50 mg every 8 hours, HCTZ 25 mg daily and metoprolol 50 mg by mouth twice a day for hypertension. Currently on Pravachol 40 mg daily for dyslipidemia. NS IVF discontinued 07/24 Resp: Acute on chronic hypoxemic respiratory failure Chronic home O2 dependency at 3 L at home History of asthma PRVC 18/550/0.9/5/40 Ventilator bundle Albuterol/ipratropium aerosols every 4 hours with albuterol aerosols every 2 hours. Dyspnea Add budesonide 0.5/2 1 inhalation twice a day On fluticasone 44 g 2 puffs twice a day and salmeterol 50 g inhaled twice a day at home CXR 07/23 worsening effusions and bibasilar consolidation small right and moderate left pleural effusions 07/23 US guided marking of lungs 770cc on left, 276 on right 07/25 S/P right thoracentesis 990 cc removed ETT- Day 4, possible consideration for tracheostomy GI: Hypoalbuminemia Tube feeding with Suplena goal 55 cc an hour, currently of 40 cc/hour-07/26 elevated residuals, Reglan 5 mg every 8 hours initiated Famotidine for GI prophylaxis Docusate sodium/senna 1 tablet twice a day for bowel regimen : Maintain Grant catheter Endo: Diabetes mellitus Hypothyroidism Currently on insulin detemir 5 units twice a day with Novulog sliding scale insulin every 6 hours to maintain euglycemia On detemir 50 units in a.m. 4 units at night at home along with insulin Aspart sliding scale insulin Continue levothyroxine 50 mcg by mouth daily for hypothyroidism. 07/23 TSH- WNL. Renal: History renal cell cancer 3 cm left renal mass Status post right nephrectomy May 2017 for renal cell carcinoma Failing autologous renal transplant on chronic immunosuppression Currently on cyclosporine 75 mg twice a day. Holding CellCept 500 mg twice a day. IHD schedule per nephrology. 4 L removed yesterday Urine output last 24 hours-300cc Follow creatinine daily. Heme: Anemia of chronic kidney disease Continue iron sulfate 325 mg twice a day Serial hemoglobins daily. Maintain hemoglobin greater than 7 ID: Pneumonia Currently on linezolid, azithromycin and piperacillin/tazobactam 07/20 Blood cultures 2- NGTD CMV pending 07/22 Sputum- pending 07/22 Influenza -neg 07/22-Legionella, pneumococcal-pending Infectious disease following FEN: Hyperphosphatemia Continue phosphate binder Replace electrolytes as clinically indicated MSK: Elevated BMI greater than 50 Charcot foot Weight loss encouraged. PT evaluate and treat Access - Utilize peripheral IV. Central line if indicated Prophylaxis - GI - famotidine -DVT- SCD/heparin subcutaneous Dispo: D/W Marlene NIGHTCLUB MANAGER at bedside This patient remains critically ill with one or more organ systems which are or may become a threat to life. I have spent in excess of 31 minutes discontinuously in the care and management of this patient. This time is exclusive of procedures, and includes, but is not limited to, evaluation of the patient, review of the medical record, discussions with family, consultants, nursing staff, or respiratory therapy, and documentation in the medical record. Discussed with NIGHTCLUB MANAGER at bedside (Marlene) Physician Vivian Goff MD Jul 26, 2017 15:07
[2017-07-26] MEDS: AZITHROMYCIN 500 MG/NS 250 ML IV SCH ×2 (22:06)
[2017-07-26] MEDS: PRAVASTATIN SOD 40 MG TAB PO SCH (22:08)
[2017-07-26] MEDS: METOCLOPRAMIDE HCL 10 MG/2 ML VIAL IV PUSH SCH (22:09)
[2017-07-27] VITALS (17 sets, daily range): BP systolic 101–142; BP diastolic 49–108; PULSE 47–68; RESP 9–18; TEMP 98.7–98.9; O2SAT 93–96
[2017-07-27] MEDS: PROPOFOL 1000 MG/100 ML INJ 100 ML IV PRN ×3 (00:14→16:39)
[2017-07-27] MEDS: PIPERACIL-TAZO 2.25 GM PREMIX 50 ML IV SCH ×4 (02:05→19:39)
[2017-07-27] MEDS: LEVOTHYROXINE SODIUM 50 MCG TAB PO SCH (04:44)
[2017-07-27] MEDS: hydrALAZINE HCL 25 MG TAB PO SCH ×3 (04:45→22:37)
[2017-07-27] MEDS: METOCLOPRAMIDE HCL 10 MG/2 ML VIAL IV PUSH SCH ×3 (04:45→22:36)
[2017-07-27] MEDS: HEPARIN SODIUM - SQ 10,000 UNITS/ML VIAL SQ SCH ×3 (04:45→22:37)
[2017-07-27] MEDS: INSULIN ASPART SUPPLEMENTAL SCALE SQ SCH ×4 (04:46→17:14)
[2017-07-27 05:05] LABS: AUTOMATED NEUTROPHIL # 4.6 TH/MM3 (1.8-7.7); BASOPHIL # 0.1 TH/MM3 (0-0.2); BASOPHIL % 0.8 % (0.0-2.0); EOSINOPHIL # 0.2 TH/MM3 (0-0.4); EOSINOPHIL % 3.7 % (0.0-4.0); HEMATOCRIT 24.3 % (35.0-46.0); HEMOGLOBIN 7.8 GM/DL (11.6-15.3); LYMPH % 13.9 % (9.0-44.0); LYMPHOCYTE # 0.9 TH/MM3 (1.0-4.8); MEAN CORPUSCULAR HEMOGLOBIN 27.9 PG (27.0-34.0); MEAN CORPUSCULAR HGB CONC 32.1 % (32.0-36.0); MEAN PLATELET VOLUME 7.2 FL (7.0-11.0); MONO % 11.2 % (0.0-8.0); MONOCYTE # 0.7 TH/MM3 (0-0.9); NEUT % 70.4 % (16.0-70.0); PLATELET COUNT 169 TH/MM3 (150-450); RED BLOOD COUNT 2.79 MIL/MM3 (4.00-5.30); RED CELL DISTRIBUTION WIDTH 15.6 % (11.6-17.2); WHITE BLOOD COUNT 6.6 TH/MM3 (4.0-11.0)
[2017-07-27] MEDS: fentaNYL DRIP 250 ML IV PRN (05:11)
[2017-07-27 05:33] LABS: ALBUMIN 2.5 GM/DL (3.4-5.0); BICARBONATE 24.9 MEQ/L (21.0-32.0); CALCIUM 8.2 MG/DL (8.5-10.1); CREATININE 2.96 MG/DL (0.50-1.00); MAGNESIUM 2.3 MG/DL (1.5-2.5)
[2017-07-27 07:31] LABS: BANDS 2 % (0-6); CORRECTED NUCLEATED RBC 1 /100 WBC (0-0); LYMPHOCYTES 20 % (9-44); MONOCYTES 9 % (0-8); MYELOCYTES 1 % (0-0); NEUTROPHIL # MANUAL DIFF 4.5 TH/MM3 (1.8-7.7); NUCLEATED RED BLOOD CELL 1 (0-0); OVALOCYTES 1+ (NORMAL); POLYS (SEG NEUTROPHILS) 65 % (16-70)
[2017-07-27] MEDS: RESP: BUDESONIDE 0.5 MG/2 ML NEB NEB SCH ×2 (08:28→19:33)
[2017-07-27] MEDS: RESP: ALBUTEROL 2.5 MG/3 ML NEB (PRN) NEB ×2 (08:28→19:33)
[2017-07-27] MEDS: SODIUM CHLORIDE 0.9% FLUSH 10 ML FLUSH IV FLUSH SCH ×2 (09:00→20:57)
[2017-07-27] MEDS: INSULIN DETEMIR 100 UNITS/ML VIAL SQ SCH ×2 (09:00→20:57)
[2017-07-27] MEDS: SALMETEROL XINAFOATE 50 MCG DISKUS INH SCH ×2 (09:00→20:56)
[2017-07-27] MEDS: predniSONE 5 MG TAB PO SCH (09:12)
[2017-07-27] MEDS: ASPIRIN EC 81 MG TABEC PO SCH (09:12)
[2017-07-27] MEDS: amLODIPine BESYLATE 5 MG TAB PO SCH (09:12)
[2017-07-27] MEDS: HYDROCHLOROTHIAZIDE 25 MG TAB PO SCH (09:12)
[2017-07-27] MEDS: METOPROLOL TARTRATE 50 MG TAB PO SCH ×2 (09:12→20:58)
[2017-07-27] MEDS: CALCIUM ACETATE 667 MG CAP PO SCH ×3 (09:12→17:14)
[2017-07-27] MEDS: CALCIUM/VITAMIN D 250 MG/125 U TAB PO SCH ×2 (09:12→17:14)
[2017-07-27] MEDS: FAMOTIDINE 20 MG TAB PO SCH ×2 (09:12→20:57)
[2017-07-27] MEDS: CHLORHEXIDINE 0.12% (ORAL KIT) 15 ML CUP MT SCH ×2 (09:13→19:39)
--- NOTE | 2017-07-27 11:24 | RADRPT ---
EXAM DATE/TIME: 07/27/2017 10:42 [place] COMPARISON: ABDOMEN KUB ONLY, May 16, 2017, 15:21. INDICATIONS : Evaluate for ileus. MEDICAL HISTORY : Hypercholesterolemia. Hypertension. Chronic obstructive pulmonary disease. Asthma. Sleep apnea. Renal failure. Osteoporosis. MRSA. Renal cell carcinoma. SURGICAL HISTORY : Tonsillectomy. Cholecystectomy. section. Kidney transplant. Dialysis. Fused lumbar spine. Ri ght nephrectomy. ENCOUNTER: Subsequent ACUITY: 3 days PAIN SCORE: Non-responsive. LOCATION: Abdomen, all quadrants. FINDINGS: Supine view of the abdomen was performed. The abdominal bowel gas pattern is normal. No abnormal ma sses, calcifications, or organomegaly is seen. The osseous structures are unremarkable. CONCLUSION: Normal examination. Cam Cristina MD on July 27, 2017 at 11:21 Board Certified Radiologist. This report was verified electronically.
[2017-07-27] MEDS: FERROUS SULFATE 325 MG (65 MG ELEMENTAL IRON) TAB PO SCH ×2 (12:44→17:14)
--- NOTE | 2017-07-27 12:44 | HHI.NPPN ---
Subjective Renal Failure: Chronic, Acute Interval History Renal function is stable. Marginal urine output. Her eyes are open, on CPAP trial. Due for dialysis. (Ania Sampson) Review of Systems General General Remarks unable to evaluate (Ania Sampson) Cardiovascular Cardiac: Edema (Ania Sampson) Objective Data Data Vital Signs Date Time Temp Pulse Resp B/P (MAP) Pulse Ox O2 Delivery O2 Flow Rate FiO2 07/27/17 12:08 95 40 07/27/17 10:00 68 07/27/17 08:45 40 07/27/17 08:29 40 07/27/17 08:29 93 40 07/27/17 08:00 40 07/27/17 08:00 55 07/27/17 08:00 98.9 55 18 103/50 (67) 93 07/27/17 06:00 54 07/27/17 04:00 98.1 51 9 120/53 (75) 96 07/27/17 04:00 51 07/27/17 04:00 54 07/27/17 04:00 40 07/27/17 03:54 96 40 07/27/17 02:00 49 07/27/17 01:08 95 40 07/27/17 00:00 47 07/27/17 00:00 40 07/27/17 00:00 95.7 47 13 101/49 (66) 93 07/26/17 22:00 47 07/26/17 20:24 96 40 07/26/17 20:00 40 07/26/17 20:00 47 07/26/17 20:00 94.4 47 11 125/58 (80) 96 07/26/17 18:00 47 07/26/17 17:00 47 07/26/17 16:00 97.1 47 18 105/50 (68) 94 07/26/17 16:00 47 07/26/17 16:00 40 07/26/17 15:00 47 07/26/17 14:39 92 40 07/26/17 14:00 47 07/26/17 13:00 45 (Ania Sampson) -: 07/27/17 0443 07/27/17 0443 Imaging Last 72 hours Impressions Abdomen X-Ray 07/27/17 0000 Signed Impressions: Service Date/Time: July 10:42 - CONCLUSION: Normal examination. Cam Cristina MD Chest X-Ray 07/26/17 0600 Signed Impressions: Service Date/Time: Wednesday, July 26, 2017 03:13 - CONCLUSION: Cardiomegaly with diffuse increased opacity likely related to CHF. Bilateral effusions can be considered. To Leija MD Chest X-Ray 07/25/17 0600 Signed Impressions: Service Date/Time: Tuesday, July 25, 2017 04:00 - CONCLUSION: Diffuse consolidation which appears unchanged from the prior exam. Edema can be suspected. To Leija MD Thoracentesis Ultrasound 07/25/17 0000 Signed Impressions: Service Date/Time: Tuesday, July 25, 2017 12:49 - CONCLUSION: Uncomplicated ultrasound guided thoracentesis. Varghese Baker MD Chest X-Ray 07/25/17 0000 Signed Impressions: Service Date/Time: Tuesday, July 25, 2017 13:51 - CONCLUSION: 1. Limited study. 2. No pneumothorax. 3. Unchanged bilateral pulmonary infiltrates with cardiomegaly. 4. Masslike density projecting over the left hilum. Rosalino Drake Jr., MD Chest Ultrasound 07/24/17 1600 Signed Impressions: Service Date/Time: Monday, July 24, 2017 17:18 - CONCLUSION: There is a moderate-sized right pleural effusion confirmed by ultrasound Rosalino Morgan MD Tubes & Lines: Perma-Cath, Grant Tubes & Lines Comment fentanyl, propofol Drip Comment Propofol, fentanyl (Ania Sampson) Physical Exam General Appearance: Comfortable, Sleeping, Obese Appearance Remarks morbidly obese, intubated, unresponsive. (Ania Sampson) Eyes Eye Exam: Pupils Equal (Ania Sampson) Neck Neck Exam: Neck Supple (Ania Sampson) Pulmonary Resp Exam: Crackles, Rhonchi, Decreased Bases, Diminished Breath Sounds Resp Remarks vented lung sounds (Ania Sampson) Cardiology CV Exam: Regular, Normal Sinus Rhythm (Ania Sampson) Gastrointestinal/Abdomen GI Exam: Soft, Non-Tender, Bowel Sounds Present (Ania Sampson) Genitourinary Remarks dark urine (Ania Sampson) Musculoskeletal MS Exam: Normal Tone, Unable to Ambulate (Ania Sampson) Integumentary Skin Exam: Warm, Dry (Ania Sampson) Extremeties Extremities Exam: Pedal Pulses Palpable, Moderate Edema (Ania Sampson) Neurologic Neuro Exam: Unresponsive, Sedated (Ania Sampson) Assessment/Plan Assessment Summary: Anemia of CKD, Hypertension, Diabetes Mellitus Problem List: (1) EDITH (acute kidney injury) ICD Codes: N17.9 - Acute kidney failure, unspecified Status: Acute Plan: Has hx of renal transplant in 2000 and a hx of nephrectomy due to renal cell CA in 2016 Residual CKD, baseline appears to be 2.6-2.8 She may have suffered ATN or worsening chronic graft loss. She is oliguric. HD started 07/21 and 07/22, on TTS HD currently, due today Monitor renal function daily. It remains to be seen if her renal function will recover. Creatinine not that far from baseline but urine output is marginal. Monitor urine output, maintain Grant catheter in place for now. HD Monday if needed. Avoid IVF, nephrotoxic agents. Vancomycin was stopped. Permcath in place on right Phosphorus is acceptable. She is on Calcium acetate with tube feedings (2) H/O kidney transplant ICD Codes: Z94.0 - Kidney transplant status Status: Acute Plan: Patient has a failing allograft Continue immunosuppression, she is on prednisone and cyclosporine. Cellcept has been discontinued due to hx of RCC. Monitor cyclosporine level, it is currently low. Dosage increased to 100 mg BID (3) Diabetes ICD Codes: E11.9 - Type 2 diabetes mellitus without complications Status: Chronic Plan: Monitor glucose, maintain 140-180 mg/dL this admission (4) HTN (hypertension) ICD Codes: I10 - Essential (primary) hypertension Status: Chronic Plan: Continue medications as ordered, titrate as needed (5) Pneumonia ICD Codes: J18.9 - Pneumonia, unspecified organism Plan: ID following, On Zosyn and Zithromax Chest xray reviewed, s/p left thoracentesis, 975 ml removed On CPAP trial. May require trach soon. Continue vent bundle. Plan (Ania Sampson) Plan patient was seen and examined. Agree with above assessment and plan. Urine output is low, we will continue dialysis treatments. (Antonio Velez MD) Problem Qualifiers (1) Diabetes: Ania Sampson Jul 27, 2017 12:44 Antonio Velez MD Jul 28, 2017 09:56
[2017-07-27] MEDS: HEPARIN SODIUM - IV 10,000 UNITS/10 ML VIAL PRN (13:52)
[2017-07-27] MEDS: EPOETIN ALFA 10,000 UNITS/ML VIAL IV PUSH PRN (13:53)
[2017-07-27] MEDS: GENTAMICIN SULFATE (DIALYSIS USE ONLY) 20 MG/2 ML VIAL OTHER PRN (13:53)
[2017-07-27] MEDS: ALBUMIN 25% INJ 100 ML IV PRN (13:54)
[2017-07-27] MEDS: MANNITOL 12.5 GM/50 ML VIAL IV PRN (13:54)
--- NOTE | 2017-07-27 15:57 | HHI.CCPN ---
Subjective Remarks/Hospital Course I was asked to see patient this evening due to excessive somnolence. She was protecting her airway adequately but otherwise unresponsive except to loud voice or noxious stimulation. She was just started back on dialysis after a renal transplant failed. She has a past medical history of hypertension, hyperlipidemia, depression, morbid obesity, CKD status post renal transplant, renal cell carcinoma status post right nephrectomy, diabetes mellitus and sleep apnea. She presented to the ER 2 days ago with persistent vomiting despite home medication with Zofran and Phenergan. Patient also complains of generalized abdominal pain, worst in the epigastric region. She was discharged from the hospital on 07/13 where she was treated for acute on chronic kidney injury, generalized weakness and hyperkalemia. She is chronically on 2-3 L nasal cannula at home with a history of asthma. She denies any fever/chills. H&H 7.6 /23.8 which is approximately patient's baseline. BUN/creatinine 86/3.89, patient's creatinine 2.66 on 07/13. Chest x-ray showed bibasilar airspace disease with possible bilateral pleural effusions. CT of the abdomen/pelvis with new bibasilar consolidating infiltrate and 3 cm left renal mass which is unchanged from previous. Presently, her respiratory effort is satisfactory and she controls her airway. Major concern is for CO2 retention. Subjective 07/22: Currently orotracheally intubated. On low dose propofol drip at 10 mcg/ kg per minute. Arousable on the ventilator and appointments. Will initiate tube feeding today. 07/23: Afebrile. Patient received transfusion yesterday 1 unit of packed red blood cells hemoglobin stable this a.m.. Patient underwent hemodialysis yesterday approximately 4500 cc removed. Patient continues on sedation for ventilator synchrony. Chest x-ray appears to be worsening. CT brain revealed no abnormalities. 07/24: Afebrile. Chest x-ray showed complete near-complete opacification of the left lung, bronchoscopy planned. Patient noted to have pleural effusions right, ultrasound quantification of pleural effusion pending. Mucomyst initiated. 07/25: Patient's Hgb 6.1 this am, planned in one unit of PRBC. Patient noted large left effusion greater than 770 cc. Thoracentesis performed approximately 990 cc removed from left side. Chest x-ray pending post procedure. BAL performed yesterday, results pending. 07/26: Afebrile. JHONY globin stable as post transfusion yesterday. Patient noted to have high gastric residuals greater than 550 cc, Reglan initiated every 8 hours. IHD 4 L off yesterday. Chest x-ray continues to worsen. 07/27: Sedation vacation again performed today patient writhing around in bed not following commands, continues to appear altered. CT brain EEG ammonia level pending. Patient currently undergoing IHD with targeted to fluid removal of 4 L. KUB performed for persistent residuals no acute abnormality. Objective Vital Signs Date Time Temp Pulse Resp B/P (MAP) Pulse Ox O2 Delivery O2 Flow Rate FiO2 07/27/17 14:00 65 07/27/17 13:26 40 07/27/17 12:08 95 07/27/17 12:00 98.7 11 105/58 (74) Intake and Output 07/27/17 07/27/17 07/28/17 08:00 16:00 00:00 Intake Total 800 ml 50 ml Output Total 250 ml Balance 550 ml 50 ml Result Diagram: 07/27/17 0443 07/27/17 0443 Other Results Microbiology Date/Time Source Procedure Growth Status 07/24/17 16:20 Bronchial Washings Bronchial Gram Stain - Final Complete 07/24/17 16:20 Bronchial Washings Bronchial Bronchial Culture - Final NO GROWTH IN 48 HOURS. Complete 07/25/17 16:44 Urine Clean Catch Urine Culture - Final NO GROWTH IN 48 HOURS. Complete Imaging Last Impressions Chest X-Ray 07/24/17 0600 Signed Impressions: Service Date/Time: Monday, July 24, 2017 04:01 - CONCLUSION: 1. Near- total opacification of the left chest likely related to diffuse atelectasis or consolidation. 2. Right consolidation or atelectasis especially at the base. Some degree of right effusion needs to be considered. To Leija MD Upper Extremity Ultrasound 07/23/17 0000 Signed Impressions: Service Date/Time: Sunday, July 23, 2017 07:48 - CONCLUSION: No evidence of deep venous thrombosis within the upper extremities. Florin Michelle MD Head CT 07/22/17 0000 Signed Impressions: Service Date/Time: Sunday, July 23, 2017 03:07 - CONCLUSION: No acute intracranial abnormality demonstrated. To Madera MD Catheter Placement X-Ray 07/21/17 0000 Signed Impressions: Service Date/Time: Friday, July 21, 2017 14:47 - CONCLUSION: Uncomplicated PermaCath placement as above. Idris Diaz MD Abdomen/Pelvis CT 07/19/17 0000 Signed Impressions: Service Date/Time: Wednesday, July 19, 2017 16:25 - CONCLUSION: 1. Status post right nephrectomy with no acute findings in the right renal fossa. 2. New bibasilar consolidating infiltrate and small bilateral effusions. 3. Anasarca 4. 3 cm left renal mass; unchanged. 5. Status post cholecystectomy. Schuyler Saucedo MD Last Impressions Chest X-Ray 07/23/17 0600 Signed Impressions: Service Date/Time: Sunday, July 23, 2017 03:39 - CONCLUSION: Worsening effusions and bibasilar consolidation. To Madera MD Head CT 07/22/17 0000 Signed Impressions: Service Date/Time: Sunday, July 23, 2017 03:07 - CONCLUSION: No acute intracranial abnormality demonstrated. To Madera MD Catheter Placement X-Ray 07/21/17 0000 Signed Impressions: Service Date/Time: Friday, July 21, 2017 14:47 - CONCLUSION: Uncomplicated PermaCath placement as above. Idris Diaz MD Abdomen/Pelvis CT 07/19/17 0000 Signed Impressions: Service Date/Time: Wednesday, July 19, 2017 16:25 - CONCLUSION: 1. Status post right nephrectomy with no acute findings in the right renal fossa. 2. New bibasilar consolidating infiltrate and small bilateral effusions. 3. Anasarca 4. 3 cm left renal mass; unchanged. 5. Status post cholecystectomy. Schuyler Saucedo MD Last Impressions Catheter Placement X-Ray 07/21/17 0000 Signed Impressions: Service Date/Time: Friday, July 21, 2017 14:47 - CONCLUSION: Uncomplicated PermaCath placement as above. Idris Diaz MD Chest X-Ray 07/19/17 0000 Signed Impressions: Service Date/Time: Wednesday, July 19, 2017 16:37 - CONCLUSION: Bibasilar airspace disease with possible bilateral effusions. Mild cardiomegaly. Schuyler Saucedo MD Abdomen/Pelvis CT 07/19/17 0000 Signed Impressions: Service Date/Time: Wednesday, July 19, 2017 16:25 - CONCLUSION: 1. Status post right nephrectomy with no acute findings in the right renal fossa. 2. New bibasilar consolidating infiltrate and small bilateral effusions. 3. Anasarca 4. 3 cm left renal mass; unchanged. 5. Status post cholecystectomy. Schuyler Saucedo MD Objective Remarks GENERAL: 56-year-old morbidly obese female, resting in bed orotracheally intubated on sedation vacation, not following commands moving extremities spontaneously SKIN: Warm and dry. HEAD: Atraumatic. Normocephalic. EYES: Pupils 2 mm, equal round and reactive. Extraocular motions intact ENT: Throat without erythema. Endotracheal intubation NECK: Trachea midline. Supple, nontender, right IJ tunneled cuffed catheter in place for hemodialysis CARDIOVASCULAR: Bradycardic, RR. S1, S2 no S4. Without murmurs, clicks, gallops or rub. Unable to assess JVD secondary to body habitus RESPIRATORY:. Breath sounds equal bilaterally. No wheezes, rales, or rhonchi. Diminished throughout. GASTROINTESTINAL: Abdomen obese; soft, nontender, nondistended. Fixed mass in hernia right side, nontender. BS active. MUSCULOSKELETAL: 2+ peripheral edema left upper extremity, trace to 1+ right upper extremity chronic. Well perfused. NEUROLOGICAL: RASS -3. Cranial nerves II through XII appear grossly intact. Positive gag and corneal reflex. Withdraws to pain in all 4 extremities on sedation currently. Sedation vacation patient is moving extremities spontaneously does not follow any commands A/P Assessment and Plan Neuro/Psych: Acute toxic metabolic encephalopathy Depression disorder NOS Altered mental status Currently on propofol/fentanyl drips for sedation/analgesia while intubated Goal of RASS -2 Continue daily sedation vacation Holding sertraline 200 mg by mouth daily for depression. While on linezolid. Resume when clinically indicated 07/27 Follow-up CT brain, EEG, ammonia level CV: Hypertension Dyslipidemia Currently on amlodipine 10 mg daily, hydralazine 50 mg every 8 hours, HCTZ 25 mg daily and metoprolol 50 mg by mouth twice a day for hypertension. Currently on Pravachol 40 mg daily for dyslipidemia. NS IVF discontinued 07/24 Resp: Acute on chronic hypoxemic respiratory failure Chronic home O2 dependency at 3 L at home History of asthma PRVC 18/550/0.9/5/40 Ventilator bundle Albuterol/ipratropium aerosols every 4 hours with albuterol aerosols every 2 hours. Dyspnea Add budesonide 0.5/2 1 inhalation twice a day On fluticasone 44 g 2 puffs twice a day and salmeterol 50 g inhaled twice a day at home CXR 07/23 worsening effusions and bibasilar consolidation small right and moderate left pleural effusions 07/23 US guided marking of lungs 770cc on left, 276 on right 07/25 S/P right thoracentesis 990 cc removed ETT- Day 5 possible consideration for tracheostomy GI: Hypoalbuminemia Tube feeding with Suplena goal 55 cc an hour, currently of 40 cc/hour-07/26 elevated residuals, Reglan 5 mg every 8 hours initiated Famotidine for GI prophylaxis Docusate sodium/senna 1 tablet twice a day for bowel regimen : Maintain Grant catheter Endo: Diabetes mellitus Hypothyroidism Currently on insulin detemir 5 units twice a day with Novulog sliding scale insulin every 6 hours to maintain euglycemia On detemir 50 units in a.m. 4 units at night at home along with insulin Aspart sliding scale insulin Continue levothyroxine 50 mcg by mouth daily for hypothyroidism. 07/23 TSH- WNL. Renal: History renal cell cancer 3 cm left renal mass Status post right nephrectomy May 2017 for renal cell carcinoma Failing autologous renal transplant on chronic immunosuppression Currently on cyclosporine 75 mg twice a day. Holding CellCept 500 mg twice a day. IHD schedule per nephrology. 4 L removed yesterday Urine output last 24 hours-250cc Follow creatinine daily. Heme: Anemia of chronic kidney disease Continue iron sulfate 325 mg twice a day Serial hemoglobins daily. Maintain hemoglobin greater than 7 ID: Pneumonia Currently on linezolid, azithromycin and piperacillin/tazobactam 07/20 Blood cultures 2- NGTD CMV pending 07/22 Sputum- pending 07/22 Influenza -neg 07/22-Legionella, pneumococcal-pending Infectious disease following FEN: Hyperphosphatemia Continue phosphate binder Replace electrolytes as clinically indicated MSK: Elevated BMI greater than 50 Charcot foot Weight loss encouraged. PT evaluate and treat Access - Utilize peripheral IV. Central line if indicated Prophylaxis - GI - famotidine -DVT- SCD/heparin subcutaneous Dispo: D/W Marlene LAUNCH OPERATOR at bedside This patient remains critically ill with one or more organ systems which are or may become a threat to life. I have spent in excess of 39 minutes discontinuously in the care and management of this patient. This time is exclusive of procedures, and includes, but is not limited to, evaluation of the patient, review of the medical record, discussions with family, consultants, nursing staff, or respiratory therapy, and documentation in the medical record. Discussed with LAUNCH OPERATOR at bedside (Andry) Physician Vivian Goff MD Jul 27, 2017 15:57
[2017-07-27] MEDS: AZITHROMYCIN 500 MG/NS 250 ML IV SCH ×2 (19:40)
--- NOTE | 2017-07-27 20:09 | HHI.IDPN ---
Subjective Subjective Remarks pt remains on vent sp L sided thoracocenthesis all clx remain negative pt was hypotherrmic earlier, now afebrile Antibiotics zithromax zosyn Past Medical History ESRD renla allograft renal cell carcinoma May 2017 radical right nephrectomy for renal cell Cancer in May 2017 Allergies: Coded Allergies: adhesive (Unverified Allergy, Severe, SILK TAPE, 07/07/17) NSAIDS (Non-Steroidal Anti-Inflamma (Verified Adverse Reaction, Severe, Nausea/Vomiting, 07/07/17) Objective . Vital Signs Date Time Temp Pulse Resp B/P (MAP) Pulse Ox O2 Delivery O2 Flow Rate FiO2 07/27/17 19:29 96 40 07/27/17 18:00 57 07/27/17 16:00 40 07/27/17 16:00 98.9 61 13 122/54 (76) 07/27/17 16:00 62 07/27/17 14:00 65 07/27/17 13:26 40 07/27/17 12:08 95 40 07/27/17 12:00 98.7 66 11 105/58 (74) 94 07/27/17 12:00 40 07/27/17 12:00 66 07/27/17 10:00 68 07/27/17 08:45 40 07/27/17 08:29 40 07/27/17 08:29 93 40 07/27/17 08:00 40 07/27/17 08:00 55 07/27/17 08:00 98.9 55 18 103/50 (67) 93 07/27/17 06:00 54 07/27/17 04:00 98.1 51 9 120/53 (75) 96 07/27/17 04:00 51 07/27/17 04:00 54 07/27/17 04:00 40 07/27/17 03:54 96 40 07/27/17 02:00 49 07/27/17 01:08 95 40 07/27/17 00:00 47 07/27/17 00:00 40 07/27/17 00:00 95.7 47 13 101/49 (66) 93 07/26/17 22:00 47 07/26/17 20:24 96 40 07/27/17 07/27/17 07/28/17 15:00 23:00 07:00 Intake Total 100 ml 281 ml Output Total 4200 ml Balance 100 ml -3919 ml IV Total 100 ml Tube Feeding 81 ml Other 200 ml Output Urine Total 200 ml Hemodialysis 4000 ml . Laboratory Tests Test 07/26/17 09:14 07/27/17 04:43 White Blood Count 5.9 TH/MM3 6.6 TH/MM3 Red Blood Count 2.72 MIL/MM3 2.79 MIL/MM3 Hemoglobin 7.4 GM/DL 7.8 GM/DL Hematocrit 23.5 % 24.3 % Mean Corpuscular Volume 86.5 FL 87.0 FL Mean Corpuscular Hemoglobin 27.4 PG 27.9 PG Mean Corpuscular Hemoglobin Concent 31.7 % 32.1 % Red Cell Distribution Width 15.4 % 15.6 % Platelet Count 162 TH/MM3 169 TH/MM3 Mean Platelet Volume 7.6 FL 7.2 FL Neutrophils (%) (Auto) 70.4 % Lymphocytes (%) (Auto) 13.9 % Monocytes (%) (Auto) 11.2 % Eosinophils (%) (Auto) 3.7 % Basophils (%) (Auto) 0.8 % Neutrophils # (Auto) 4.6 TH/MM3 Lymphocytes # (Auto) 0.9 TH/MM3 Monocytes # (Auto) 0.7 TH/MM3 Eosinophils # (Auto) 0.2 TH/MM3 Basophils # (Auto) 0.1 TH/MM3 CBC Comment AUTO DIFF Differential Total Cells Counted 100 Neutrophils % (Manual) 65 % Band Neutrophils % 2 % Lymphocytes % 20 % Monocytes % 9 % Eosinophils % 3 % Neutrophils # (Manual) 4.5 TH/MM3 Myelocytes 1 % Nucleated Red Blood Cells 1 /100 WBC Differential Comment FINAL DIFF MANUAL Platelet Estimate NORMAL Platelet Morphology Comment NORMAL Ovalocytes 1+ Laboratory Tests Test 07/26/17 09:14 07/27/17 04:43 07/27/17 19:02 Blood Urea Nitrogen 47 MG/DL 47 MG/DL Creatinine 2.92 MG/DL 2.96 MG/DL Random Glucose 132 MG/DL 80 MG/DL Calcium Level 8.1 MG/DL 8.2 MG/DL Phosphorus Level 3.4 MG/DL 4.0 MG/DL Magnesium Level 2.3 MG/DL 2.3 MG/DL Sodium Level 135 MEQ/L 136 MEQ/L Potassium Level 3.5 MEQ/L 3.8 MEQ/L Chloride Level 99 MEQ/L 100 MEQ/L Carbon Dioxide Level 27.2 MEQ/L 24.9 MEQ/L Anion Gap 9 MEQ/L 11 MEQ/L Estimat Glomerular Filtration Rate 17 ML/MIN 16 ML/MIN Albumin 2.5 GM/DL Ammonia 24 MCMOL/L Microbiology Date/Time Source Procedure Growth Status 07/25/17 13:19 Fluid Pleural Fluid Fungal Smear - Final NO FUNGAL ELEMENTS SEEN. Resulted 07/25/17 13:19 Fluid Pleural Fluid Fungal Culture Pending Resulted 07/25/17 13:19 Fluid Pleural Fluid Acid Fast Stain - Final NO ACID FAST BACILLI SEEN Resulted 07/25/17 13:19 Fluid Pleural Fluid Mycobacterial Culture Pending Resulted 07/25/17 13:19 Fluid Pleural Fluid Gram Stain - Final Resulted 07/25/17 13:19 Fluid Pleural Fluid Body Fluid Culture - Preliminary NO GROWTH IN 48 HOURS. Resulted 07/25/17 16:44 Urine Clean Catch Urine Culture - Final NO GROWTH IN 48 HOURS. Complete Imaging Last Impressions Abdomen X-Ray 07/27/17 0000 Signed Impressions: Service Date/Time: July 10:42 - CONCLUSION: Normal examination. Cam Cristina MD Chest X-Ray 07/26/17 0600 Signed Impressions: Service Date/Time: Wednesday, July 26, 2017 03:13 - CONCLUSION: Cardiomegaly with diffuse increased opacity likely related to CHF. Bilateral effusions can be considered. oT Leija MD Thoracentesis Ultrasound 07/25/17 0000 Signed Impressions: Service Date/Time: Tuesday, July 25, 2017 12:49 - CONCLUSION: Uncomplicated ultrasound guided thoracentesis. Varghese Baker MD Chest Ultrasound 07/24/17 1600 Signed Impressions: Service Date/Time: Monday, July 24, 2017 17:18 - CONCLUSION: There is a moderate-sized right pleural effusion confirmed by ultrasound Rosalino Morgan MD Upper Extremity Ultrasound 07/23/17 0000 Signed Impressions: Service Date/Time: Sunday, July 23, 2017 07:48 - CONCLUSION: No evidence of deep venous thrombosis within the upper extremities. Florin Michelle MD Head CT 07/22/17 0000 Signed Impressions: Service Date/Time: Sunday, July 23, 2017 03:07 - CONCLUSION: No acute intracranial abnormality demonstrated. To [place] MD Catheter Placement X-Ray 07/21/17 0000 Signed Impressions: Service Date/Time: Friday, July 21, 2017 14:47 - CONCLUSION: Uncomplicated PermaCath placement as above. Idris Diaz MD Abdomen/Pelvis CT 07/19/17 0000 Signed Impressions: Service Date/Time: Wednesday, July 19, 2017 16:25 - CONCLUSION: 1. Status post right nephrectomy with no acute findings in the right renal fossa. 2. New bibasilar consolidating infiltrate and small bilateral effusions. 3. Anasarca 4. 3 cm left renal mass; unchanged. 5. Status post cholecystectomy. Schuyler Saucedo MD Physical Exam CONSTITUTIONAL/GENERAL: This is a morbidly obese patient, in no apparent distress. Intubated TUBES/LINES/DRAINS: SKIN: No jaundice, rashes, or lesions. Skin temperature appropriate. Not diaphoretic. ENT: Hearing grossly normal. Nose without bleeding or purulent drainage. Throat without visible erythema, exudates, masses, or lesions. CARDIOVASCULAR: Regular rate and rhythm without murmurs, gallops, or rubs. No JVD. Peripheral pulses symmetric. RESPIRATORY/CHEST: Symmetric, unlabored respirations. Clear to auscultation. Breath sounds equal bilaterally. No wheezes, rales, or rhonchi. GASTROINTESTINAL: Abdomen soft, non-tender, nondistended Its markely obese and degree of obesty precludes examination of organomegaly, or palpable masses. No guarding. Bowel sounds present. : mcintosh in place with tea coloured urine MUSCULOSKELETAL: Extremities without clubbing, cyanosis, or edema. No joint tenderness or effusion noted. No calf tenderness. No mottling or clubbing. NEUROLOGICAL: sedated PSYCHIATRIC:unable to assess Assessment & Plan Remarks PNA ARF/CKD, transpalnt failure starte on HD Permacath placed 07/21 Immunosuppresed Renal allograft Renal ca sp R nephrectomy 2 mos ago Acute hypercapnic resp failure avoid neprotoxins: will dc vancomycin cont zosyn cont zithromax if remains afebrile, stable wbd , will dc abx in the next 24-48 hrs Geena Price MD Jul 27, 2017 20:09
[2017-07-27] MEDS: PRAVASTATIN SOD 40 MG TAB PO SCH (20:57)
[2017-07-28] VITALS (19 sets, daily range): BP systolic 126–147; BP diastolic 56–68; PULSE 48–61; RESP 12–48; TEMP 97.7–98.1; O2SAT 95–100
[2017-07-28] MEDS: PROPOFOL 1000 MG/100 ML INJ 100 ML IV PRN ×8 (00:13→22:29)
[2017-07-28] MEDS: PIPERACIL-TAZO 2.25 GM PREMIX 50 ML IV SCH ×4 (02:16→20:48)
[2017-07-28] MEDS: INSULIN ASPART SUPPLEMENTAL SCALE SQ SCH ×4 (06:00→18:00)
[2017-07-28] MEDS: hydrALAZINE HCL 25 MG TAB PO SCH ×3 (06:37→20:55)
[2017-07-28] MEDS: LEVOTHYROXINE SODIUM 50 MCG TAB PO SCH (06:37)
[2017-07-28] MEDS: METOCLOPRAMIDE HCL 10 MG/2 ML VIAL IV PUSH SCH ×3 (06:38→20:56)
--- NOTE | 2017-07-28 06:44 | RADRPT ---
EXAM DATE/TIME: 07/28/2017 04:59 [place] COMPARISON: CT BRAIN W/O CONTRAST, July 23, 2017, 3:07. INDICATIONS : Altered mental status. RADIATION DOSE: 69.15 CTDIvol (mGy) ; Patient motion MEDICAL HISTORY : Cardiovascular disease. Hypertension. Chronic obstructive pulmonary disease.Renal cell carcinoma. SURGICAL HISTORY : None. ENCOUNTER: Initial ACUITY: 1 day PAIN SCALE: Non-responsive LOCATION: cranial TECHNIQUE: Multiple contiguous axial images were obtained of the head. Using automated exposure control and adj ustment of the mA and/or kV according to patient size, radiation dose was kept as low as reasonably a chievable to obtain optimal diagnostic quality images. DICOM format image data is available electro nically for review and comparison. FINDINGS: CEREBRUM: The ventricles are normal for age. No evidence of midline shift, mass lesion, hemorrhage or acute in farction. No extra-axial fluid collections are seen. POSTERIOR FOSSA: The cerebellum and brainstem are intact. The 4th ventricle is midline. The cerebellopontine angle i s unremarkable. EXTRACRANIAL: The visualized portion of the orbits is intact. SKULL: The calvaria is intact. No evidence of skull fracture. CONCLUSION: No acute intracranial findings To Coates MD on July 28, 2017 at 6:40 Board Certified Radiologist. This report was verified electronically.
[2017-07-28] MEDS: HEPARIN SODIUM - SQ 10,000 UNITS/ML VIAL SQ SCH ×3 (06:49→20:56)
[2017-07-28 06:56] LABS: HEMATOCRIT 25.9 % (35.0-46.0); HEMOGLOBIN 8.2 GM/DL (11.6-15.3); MEAN CELL VOLUME 87.8 FL (80.0-100.0); MEAN CORPUSCULAR HGB CONC 31.9 % (32.0-36.0); MEAN PLATELET VOLUME 7.3 FL (7.0-11.0); PLATELET COUNT 182 TH/MM3 (150-450); RED BLOOD COUNT 2.95 MIL/MM3 (4.00-5.30); RED CELL DISTRIBUTION WIDTH 15.7 % (11.6-17.2); WHITE BLOOD COUNT 6.7 TH/MM3 (4.0-11.0)
[2017-07-28 07:35] LABS: BICARBONATE 29.4 MEQ/L (21.0-32.0); CALCIUM 8.6 MG/DL (8.5-10.1); CREATININE 2.5 MG/DL (0.50-1.00)
[2017-07-28] MEDS: RESP: BUDESONIDE 0.5 MG/2 ML NEB NEB SCH ×2 (08:23→20:49)
[2017-07-28] MEDS: RESP: ALBUTEROL 2.5 MG/3 ML NEB (PRN) NEB (08:23)
[2017-07-28] MEDS: amLODIPine BESYLATE 5 MG TAB PO SCH (08:35)
[2017-07-28] MEDS: METOPROLOL TARTRATE 50 MG TAB PO SCH ×2 (08:35→20:56)
[2017-07-28] MEDS: ASPIRIN EC 81 MG TABEC PO SCH (08:36)
[2017-07-28] MEDS: CALCIUM ACETATE 667 MG CAP PO SCH (08:36)
[2017-07-28] MEDS: INSULIN DETEMIR 100 UNITS/ML VIAL SQ SCH ×2 (08:36→20:56)
[2017-07-28] MEDS: SODIUM CHLORIDE 0.9% FLUSH 10 ML FLUSH IV FLUSH SCH ×2 (08:37→20:55)
[2017-07-28] MEDS: FAMOTIDINE 20 MG TAB PO SCH ×2 (08:37→20:55)
[2017-07-28] MEDS: predniSONE 5 MG TAB PO SCH (08:37)
[2017-07-28] MEDS: SALMETEROL XINAFOATE 50 MCG DISKUS INH SCH ×2 (08:37→20:58)
[2017-07-28] MEDS: CALCIUM/VITAMIN D 250 MG/125 U TAB PO SCH ×2 (08:37→17:51)
[2017-07-28] MEDS: HYDROCHLOROTHIAZIDE 25 MG TAB PO SCH (08:37)
[2017-07-28] MEDS: CHLORHEXIDINE 0.12% (ORAL KIT) 15 ML CUP MT SCH ×2 (08:41→20:48)
[2017-07-28] MEDS ORDERED: POTASSIUM CHLORIDE 25 MEQ EFFERVESCENT TAB PO ONE (09:15)
--- NOTE | 2017-07-28 10:22 | HHI.NPPN ---
Subjective Renal Failure: Chronic, Acute Interval History Became agitated with CPAP trial yesterday. She is unresponsive, sedated on vent. EEG being taken. Dialyzed yesterday. Urine output seems to be improving. Not tolerated tube feeding. (Ania Sampson) Review of Systems General General Remarks unable to evaluate (Ania Sampson) Cardiovascular Cardiac: Edema (Ania Sampson) Objective Data Data Vital Signs Date Time Temp Pulse Resp B/P (MAP) Pulse Ox O2 Delivery O2 Flow Rate FiO2 07/28/17 10:00 55 07/28/17 08:23 95 40 07/28/17 08:00 40 07/28/17 08:00 59 07/28/17 08:00 97.9 58 18 128/56 (80) 97 07/28/17 06:00 58 07/28/17 05:11 100 100 07/28/17 04:37 98 40 07/28/17 04:00 97.7 52 14 126/56 (79) 98 07/28/17 04:00 52 07/28/17 04:00 40 07/28/17 02:00 55 07/28/17 01:36 96 40 07/28/17 00:00 40 07/28/17 00:00 97.9 53 12 129/60 (83) 96 07/28/17 00:00 53 07/27/17 22:00 56 07/27/17 20:00 98.1 63 14 142/108 (119) 96 07/27/17 20:00 63 07/27/17 20:00 40 07/27/17 19:29 96 40 07/27/17 18:00 57 07/27/17 16:00 40 07/27/17 16:00 98.9 61 13 122/54 (76) 07/27/17 16:00 62 07/27/17 14:00 65 07/27/17 13:26 40 07/27/17 12:08 95 40 07/27/17 12:00 98.7 66 11 105/58 (74) 94 07/27/17 12:00 40 07/27/17 12:00 66 (Ania Sampson) -: 07/28/17 0549 07/28/17 0549 Imaging Last [address] 07/27/17 0000 Signed Impressions: Service Date/Time: Friday, July 28, 2017 04:59 - CONCLUSION: No acute intracranial findings To Coates MD Abdomen X-Ray 07/27/17 0000 Signed Impressions: Service Date/Time: July 10:42 - CONCLUSION: Normal examination. Cam Cristina MD Chest X-Ray 07/26/17 0600 Signed Impressions: Service Date/Time: Wednesday, July 26, 2017 03:13 - CONCLUSION: Cardiomegaly with diffuse increased opacity likely related to CHF. Bilateral effusions can be considered. To Leija MD Tubes & Lines: Perma-Cath, Grant Tubes & Lines Comment rectal bag Drip Comment Propofol, fentanyl (Ania Sampson B. [employer]) Physical Exam General Appearance: Comfortable, Sleeping, Obese Appearance Remarks morbidly obese, intubated, unresponsive. (Ania Sampson B. [employer]) Eyes Eye Exam: Pupils Equal (Ania Sampson BStevenson [employer]) Neck Neck Exam: Neck Supple (Ania Sampson B. [employer]) Pulmonary Resp Exam: Crackles, Rhonchi, Decreased Bases, Diminished Breath Sounds Resp Remarks vented lung sounds (Ania Sampson B. [employer]) Cardiology CV Exam: Regular, Normal Sinus Rhythm (Ania Sampson B. [employer]) Gastrointestinal/Abdomen GI Exam: Soft, Non-Tender, Bowel Sounds Present (Ania Sampson B. [employer]) Genitourinary Remarks dark urine (Ania Sampson B. [employer]) Musculoskeletal MS Exam: Normal Tone, Unable to Ambulate (Ania Sampson [employer]. [employer]) Integumentary Skin Exam: Warm, Dry (Ania Sampson B. [employer]) Extremeties Extremities Exam: Pedal Pulses Palpable, Moderate Edema (Ania Sampson BStevenson [employer]) Neurologic Neuro Exam: Unresponsive, Sedated (Ania Sampson B. [employer]) Assessment/Plan Assessment Summary: Anemia of CKD, Hypertension, Diabetes Mellitus Problem List: (1) EDIHT (acute kidney injury) ICD Codes: N17.9 - Acute kidney failure, unspecified Status: Acute Plan: Has hx of renal transplant in 2000 and a hx of nephrectomy due to renal cell CA in 2017 Residual CKD, baseline appears to be 2.6-2.8 She may have suffered ATN or worsening chronic graft loss. She is oliguric but output may be improving. HD initiated on 07/21, currently on TTS HD currently. 4L UF yesterday Monitor renal function daily. It remains to be seen if her renal function will recover. Creatinine not that far from baseline but urine output is marginal. Maintain Grant catheter in place for now. HD Monday if needed. Potassium was replaced Avoid IVF, nephrotoxic agents. Vancomycin was stopped. Phosphorus is acceptable. Hold Calcium acetate and monitor renal panel. Resume if needed. Palliative to be consulted. (2) H/O kidney transplant ICD Codes: Z94.0 - Kidney transplant status Status: Acute Plan: Patient has a failing allograft Continue immunosuppression, she is on prednisone and cyclosporine. Cellcept has been discontinued due to hx of RCC. Monitor cyclosporine level, it is currently low. Dosage increased to 100 mg BID (3) Diabetes ICD Codes: E11.9 - Type 2 diabetes mellitus without complications Status: Chronic Plan: Monitor glucose, maintain 140-180 mg/dL this admission (4) HTN (hypertension) ICD Codes: I10 - Essential (primary) hypertension Status: Chronic Plan: Continue medications as ordered, titrate as needed (5) Pneumonia ICD Codes: J18.9 - Pneumonia, unspecified organism Plan: ID following, On Zosyn and Zithromax Chest xray reviewed, s/p left thoracentesis, 975 ml removed On CPAP trial. May require trach soon. Continue vent bundle. Plan (Ania Sampson) Plan patient was seen and examined. Agree with above assessment and plan. Monitor urine output. Dialysis likely tomorrow. (Antonio Velez MD) Problem Qualifiers (1) Diabetes: Ania Sampson Jul 28, 2017 10:22 Antonio Velez MD Jul 28, 2017 15:51
[2017-07-28] MEDS: FERROUS SULFATE 325 MG (65 MG ELEMENTAL IRON) TAB PO SCH ×2 (11:07→15:14)
[2017-07-28] MEDS ORDERED: BISACODYL 10 MG SUPP RECTAL PRN (18:00)
--- NOTE | 2017-07-28 18:00 | HHI.CCPN ---
Subjective Remarks/Hospital Course I was asked to see patient this evening due to excessive somnolence. She was protecting her airway adequately but otherwise unresponsive except to loud voice or noxious stimulation. She was just started back on dialysis after a renal transplant failed. She has a past medical history of hypertension, hyperlipidemia, depression, morbid obesity, CKD status post renal transplant, renal cell carcinoma status post right nephrectomy, diabetes mellitus and sleep apnea. She presented to the ER 2 days ago with persistent vomiting despite home medication with Zofran and Phenergan. Patient also complains of generalized abdominal pain, worst in the epigastric region. She was discharged from the hospital on 07/13 where she was treated for acute on chronic kidney injury, generalized weakness and hyperkalemia. She is chronically on 2-3 L nasal cannula at home with a history of asthma. She denies any fever/chills. H&H 7.6 /23.8 which is approximately patient's baseline. BUN/creatinine 86/3.89, patient's creatinine 2.66 on 07/13. Chest x-ray showed bibasilar airspace disease with possible bilateral pleural effusions. CT of the abdomen/pelvis with new bibasilar consolidating infiltrate and 3 cm left renal mass which is unchanged from previous. Presently, her respiratory effort is satisfactory and she controls her airway. Major concern is for CO2 retention. Subjective 07/22: Currently orotracheally intubated. On low dose propofol drip at 10 mcg/ kg per minute. Arousable on the ventilator and appointments. Will initiate tube feeding today. 07/23: Afebrile. Patient received transfusion yesterday 1 unit of packed red blood cells hemoglobin stable this a.m.. Patient underwent hemodialysis yesterday approximately 4500 cc removed. Patient continues on sedation for ventilator synchrony. Chest x-ray appears to be worsening. CT brain revealed no abnormalities. 07/24: Afebrile. Chest x-ray showed complete near-complete opacification of the left lung, bronchoscopy planned. Patient noted to have pleural effusions right, ultrasound quantification of pleural effusion pending. Mucomyst initiated. 07/25: Patient's Hgb 6.1 this am, planned in one unit of PRBC. Patient noted large left effusion greater than 770 cc. Thoracentesis performed approximately 990 cc removed from left side. Chest x-ray pending post procedure. BAL performed yesterday, results pending. 07/26: Afebrile. JHONY globin stable as post transfusion yesterday. Patient noted to have high gastric residuals greater than 550 cc, Reglan initiated every 8 hours. IHD 4 L off yesterday. Chest x-ray continues to worsen. 07/27: Sedation vacation again performed today patient writhing around in bed not following commands, continues to appear altered. CT brain EEG ammonia level pending. Patient currently undergoing IHD with targeted to fluid removal of 4 L. KUB performed for persistent residuals no acute abnormality. 07/28: Neurologically the patient swelling around on not following commands. CT performed negative, EEG negative. Patient noted to have high residuals, patient continues on Reglan 5 mg every 8 hours, and is having daily bowel movements . KUB does not reveal an ileus .GI has been consulted. Objective Vital Signs Date Time Temp Pulse Resp B/P (MAP) Pulse Ox O2 Delivery O2 Flow Rate FiO2 07/28/17 16:52 100 40 07/28/17 16:00 98.1 49 18 133/68 (89) Intake and Output 07/28/17 07/28/17 07/29/17 08:00 16:00 00:00 Intake Total 315 ml Output Total 525 ml Balance -210 ml Result Diagram: 07/28/17 0549 07/28/17 0549 Imaging Last Impressions Chest X-Ray 07/24/17 0600 Signed Impressions: Service Date/Time: Monday, July 24, 2017 04:01 - CONCLUSION: 1. Near- total opacification of the left chest likely related to diffuse atelectasis or consolidation. 2. Right consolidation or atelectasis especially at the base. Some degree of right effusion needs to be considered. To Leija MD Upper Extremity Ultrasound 07/23/17 0000 Signed Impressions: Service Date/Time: Sunday, July 23, 2017 07:48 - CONCLUSION: No evidence of deep venous thrombosis within the upper extremities. Florin Michelle MD Head CT 07/22/17 0000 Signed Impressions: Service Date/Time: Sunday, July 23, 2017 03:07 - CONCLUSION: No acute intracranial abnormality demonstrated. To Madera MD Catheter Placement X-Ray 07/21/17 0000 Signed Impressions: Service Date/Time: Friday, July 21, 2017 14:47 - CONCLUSION: Uncomplicated PermaCath placement as above. Idris Diaz MD Abdomen/Pelvis CT 07/19/17 0000 Signed Impressions: Service Date/Time: Wednesday, July 19, 2017 16:25 - CONCLUSION: 1. Status post right nephrectomy with no acute findings in the right renal fossa. 2. New bibasilar consolidating infiltrate and small bilateral effusions. 3. Anasarca 4. 3 cm left renal mass; unchanged. 5. Status post cholecystectomy. Schuyler Saucedo MD Last Impressions Chest X-Ray 07/23/17 0600 Signed Impressions: Service Date/Time: Sunday, July 23, 2017 03:39 - CONCLUSION: Worsening effusions and bibasilar consolidation. To Madera MD Head CT 07/22/17 0000 Signed Impressions: Service Date/Time: Sunday, July 23, 2017 03:07 - CONCLUSION: No acute intracranial abnormality demonstrated. To Madera MD Catheter Placement X-Ray 07/21/17 0000 Signed Impressions: Service Date/Time: Friday, July 21, 2017 14:47 - CONCLUSION: Uncomplicated PermaCath placement as above. Idris Diaz MD Abdomen/Pelvis CT 07/19/17 0000 Signed Impressions: Service Date/Time: Wednesday, July 19, 2017 16:25 - CONCLUSION: 1. Status post right nephrectomy with no acute findings in the right renal fossa. 2. New bibasilar consolidating infiltrate and small bilateral effusions. 3. Anasarca 4. 3 cm left renal mass; unchanged. 5. Status post cholecystectomy. Schuyler Saucedo MD Last Impressions Catheter Placement X-Ray 07/21/17 0000 Signed Impressions: Service Date/Time: Friday, July 21, 2017 14:47 - CONCLUSION: Uncomplicated PermaCath placement as above. Idris Diaz MD Chest X-Ray 07/19/17 0000 Signed Impressions: Service Date/Time: Wednesday, July 19, 2017 16:37 - CONCLUSION: Bibasilar airspace disease with possible bilateral effusions. Mild cardiomegaly. Schuyler Saucedo MD Abdomen/Pelvis CT 07/19/17 0000 Signed Impressions: Service Date/Time: Wednesday, July 19, 2017 16:25 - CONCLUSION: 1. Status post right nephrectomy with no acute findings in the right renal fossa. 2. New bibasilar consolidating infiltrate and small bilateral effusions. 3. Anasarca 4. 3 cm left renal mass; unchanged. 5. Status post cholecystectomy. Schuyler Saucedo MD Objective Remarks GENERAL: 56-year-old morbidly obese female, resting in bed orotracheally intubated on sedation vacation, not following commands moving extremities spontaneously, thrashing SKIN: Warm and dry. HEAD: Atraumatic. Normocephalic. EYES: Pupils 2 mm, equal round and reactive. Extraocular motions intact ENT: Throat without erythema. Endotracheal intubation NECK: Trachea midline. Supple, nontender, right IJ tunneled cuffed catheter in place for hemodialysis CARDIOVASCULAR: Bradycardic, RR. S1, S2 no S4. Without murmurs, clicks, gallops or rub. Unable to assess JVD secondary to body habitus RESPIRATORY:. Breath sounds equal bilaterally. No wheezes, rales, or rhonchi. Diminished throughout. GASTROINTESTINAL: Abdomen obese; soft, nontender, nondistended. Fixed mass in hernia right side, nontender. BS active. MUSCULOSKELETAL: 2+ peripheral edema left upper extremity, trace to 1+ right upper extremity chronic. Well perfused. NEUROLOGICAL: RASS -3. Cranial nerves II through XII appear grossly intact. Positive gag and corneal reflex. Withdraws to pain in all 4 extremities on sedation currently. Sedation vacation patient is moving extremities spontaneously does not follow any commands, deviant gaze A/P Assessment and Plan Neuro/Psych: Acute toxic metabolic encephalopathy Depression disorder NOS Altered mental status Currently on propofol/fentanyl drips for sedation/analgesia while intubated Goal of RASS -2 Continue daily sedation vacation Holding sertraline 200 mg by mouth daily for depression. While on linezolid. Resume when clinically indicated 07/27 Follow-up CT brain, EEG, ammonia level CV: Hypertension Dyslipidemia Currently on amlodipine 10 mg daily, hydralazine 50 mg every 8 hours, HCTZ 25 mg daily and metoprolol 50 mg by mouth twice a day for hypertension. Currently on Pravachol 40 mg daily for dyslipidemia. NS IVF discontinued 07/24 Resp: Acute on chronic hypoxemic respiratory failure Chronic home O2 dependency at 3 L at home History of asthma PRVC 18/550/0.9/5/40 Ventilator bundle Albuterol/ipratropium aerosols every 4 hours with albuterol aerosols every 2 hours. Dyspnea Add budesonide 0.5/2 1 inhalation twice a day On fluticasone 44 g 2 puffs twice a day and salmeterol 50 g inhaled twice a day at home CXR 07/23 worsening effusions and bibasilar consolidation small right and moderate left pleural effusions 07/23 US guided marking of lungs 770cc on left, 276 on right 07/25 S/P right thoracentesis 990 cc removed ETT- Day 5 possible consideration for tracheostomy GI: Hypoalbuminemia Tube feeding with Suplena goal 55 cc an hour, currently of 40 cc/hour-07/26 elevated residuals, Reglan 5 mg every 8 hours initiated 07/28patient continues to not tolerate tube feeds high residuals noted. GI has been consulted Famotidine for GI prophylaxis Docusate sodium/senna 1 tablet twice a day, Lactulose 30 cc twice a day and Docusate suppository when necessary added for bowel regimen : Maintain Grant catheter Endo: Diabetes mellitus Hypothyroidism Currently on insulin detemir 5 units twice a day with Novulog sliding scale insulin every 6 hours to maintain euglycemia On detemir 50 units in a.m. 4 units at night at home along with insulin Aspart sliding scale insulin Continue levothyroxine 50 mcg by mouth daily for hypothyroidism. 07/23 TSH- WNL. Renal: History renal cell cancer 3 cm left renal mass Status post right nephrectomy May 2017 for renal cell carcinoma Failing autologous renal transplant on chronic immunosuppression Currently on cyclosporine 75 mg twice a day. Holding CellCept 500 mg twice a day. IHD schedule per nephrology. 4 L removed yesterday Urine output last 24 hours-250cc Follow creatinine daily. Heme: Anemia of chronic kidney disease Continue iron sulfate 325 mg twice a day Serial hemoglobins daily. Maintain hemoglobin greater than 7 ID: Pneumonia Currently on linezolid, azithromycin and piperacillin/tazobactam 07/20 Blood cultures 2- NGTD CMV pending 07/22 Sputum- pending 07/22 Influenza -neg 07/22-Legionella, pneumococcal-pending Infectious disease following FEN: Hyperphosphatemia Continue phosphate binder Replace electrolytes as clinically indicated MSK: Elevated BMI greater than 50 Charcot foot Weight loss encouraged. PT evaluate and treat Access - Utilize peripheral IV. Central line if indicated Prophylaxis - GI - famotidine -DVT- SCD/heparin subcutaneous Dispo: D/W Marlene DRUG SAFETY SPECIALIST at bedside This patient remains critically ill with one or more organ systems which are or may become a threat to life. I have spent in excess of 39 minutes discontinuously in the care and management of this patient. This time is exclusive of procedures, and includes, but is not limited to, evaluation of the patient, review of the medical record, discussions with family, consultants, nursing staff, or respiratory therapy, and documentation in the medical record. Discussed with DRUG SAFETY SPECIALIST at bedside (Andry) Physician Vivian Goff MD Jul 28, 2017 18:00
--- NOTE | 2017-07-28 19:06 | PD.CONS ---
Consult Service Palliative Care Consult Requested By Dr. Arias. Primary Care Physician Iván Becerra MD Reason for Consultation a. To assist with evaluation and management of symptoms including: Shortness of breath, pain, debility. b. To assist medical decision maker(s) with: better understanding of current medical conditions; weighing benefits/burdens of medical treatment options; making medical treatment decisions. . HPI History of Present Illness Mrs. Dewey is a 56-year-old female with a medical history significant for chronic kidney disease status post renal transplant, diabetes mellitus type 2, hypertension, morbid obesity. Patient presented to ED via EMS on 07/19/17 endorsing persistent nausea vomiting as well as abdominal pain. Patient with atypical chest pain, negative troponin. It is more To include chest x-ray revealing bibasilar airspace disease with possible bilateral effusions, mild cardiomegaly. Abdomen and pelvis CT revealing status post right nephrectomy, new bibasilar consolidating infiltrate and small bilateral effusions, anasarca, 3 cm left renal mass. Laboratory workup revealing WBC 6.5, Hgb 7.6, platelet count 179. BUN/creatinine 86/3.89. Liver enzymes within normal limits. Lipase 55. Patient was admitted for further management. Nephrology, Dr. Phelan consulted on 07/19/17. Patient with history of left kidney transplant in 2000, with radical right nephrectomy of [place] kidneys secondary to renal cancer in May 2017. Patient with acute tubular necrosis versus worsening chronic graft loss, she was started on hemodialysis on . Since renal transplant, patient has been on immunotherapy. Infectious disease, Dr. Price and consulted on 07/19/17 for pneumonia in an immunocompromised patient. Patient was continued on IV antibiotics. Clinical course complicated by hypercarbic respiratory failure required intubation and mechanical ventilation on 07/22/17. Patient with mucous plugs, underwent therapeutic bronchoscopy on 07/24/17. Clinical condition continued to deteriorate as evidenced by altered mental status, inability to wean off ventilator support. Patient agitated on CPAP trials. CT of the head 07/27/17 negative for acute process. Patient with inability to tolerate tube feedings, high residuals. Feeding on hold at this time. Abdomen x-ray with no acute process. Blood, sputum, urine and bronchial wash cultures negative. Palliative care has been consulted for further clarifications of goals of care given worsening clinical condition. Reviewed patient's past medical history. Multiple prior hospitalizations in 2017. Most recent 07/07/17 to 07/13/17 secondary to hyperglycemia, blood sugar of 656 on ED presentation. Patient was discharged home with home health. Prior hospitalization from 05/09/17 to 05/15/17, patient underwent radical nephrectomy of [place] right kidney secondary to carcinoma. Patient was discharged to acute rehabilitation where she stayed from 05/15/17 to 05/23/17. Prior hospitalization from 03/05/17 to 03/09/17 secondary to dehydration. Complex mass in upper pole of right kidney diagnosed, needle biopsy positive for renal cell carcinoma. Patient seen in medical ICU. She remained endotracheally intubated on mechanical ventilation. Sedated, unresponsive to verbal or tactile stimuli. Discussed case with bedside RN Andry and Dr. Arias. Patient remains afebrile, stable hemodynamically. Currently on 40% FiO2, oxygen saturation in the high 90s. Patient was unable to tolerate CPAP trials yesterday secondary to agitation. Feedings on hold secondary to high residuals, pending GI consult. workup today revealing WBC 6.7, Hgb 8.2, platelet count 182. BUN/ creatinine 36/2.50. Most recent hemodialysis treatment on 07/27/17, 4L removed. Telephone conversation with patient's Shantanu Dewey. In this first contact, reviewed the role of palliative care in advanced illness in regards to symptom management as well as support surrounding goals of care and advance care planning. Patient's receptive to this conversation. Obtained patient's past medical history and psychosocial history. Reviewed events leading to this hospitalization, clinical course and current medical management. Shared concerns of patient's current clinical condition to include persistent encephalopathy, inability to tolerate CPAP trials, inability to tolerate tube feedings. appears to have good understanding of patient' s clinical condition and progressive deterioration. He tells me that patient has been in and out hospitals since her renal transplant in 2000. tells me that patient's quality of life is his main priority. Introduced trach and PEG discussion should patient is unable to medically extubate. Reviewed risks, benefits and limitations of CPR -cardiac code given patient's clinical condition. Goal of therapy at this time is to continue with current aggressive management to include full code. receptive to ongoing goals of care conversation as patient's clinical course continues to evolve. He once more reiterated that his main priority is patient's quality of life. He would like to allow a few more days for clinical improvement before making a decision on CODE STATUS -consider no code. . Function/Cognitive Trajectory Prior to this hospitalization, patient was residing in private home with and son. Requiring assistance with dressing and toileting. Bed, chair to wheelchair transfer. Using bariatric commode and grab bars at home. Patient has utilized motorized wheelchair for mobility for the past 10 years. No cognitive deficit reported by family. . Review of Systems ROS Limitations: Clinical Condition, Intubated, Altered Mental Status, Unresponsive Constitutional: DENIES: Fever Eyes: DENIES: Eye inflammation Ears, nose, mouth, throat: DENIES: Nasal discharge, Running Nose, Epistaxis Respiratory: COMPLAINS OF: Cough Cardiovascular: COMPLAINS OF: Chest pain, Lower Extremity Edema Gastrointestinal: COMPLAINS OF: Nausea, Vomiting, DENIES: Black stools Genitourinary: DENIES: Urinary frequency, Urinary incontinence Musculoskeletal: COMPLAINS OF: Decreased range of motion, DENIES: Back pain Integumentary: DENIES: Abnormal pigmentation Hematologic/Lymphatics: COMPLAINS OF: Bruising Immunologic/Allergic: DENIES: Eczema Neurologic: COMPLAINS OF: Abnormal gait, DENIES: Seizures, Speech Problems, Tremor Psychiatric: COMPLAINS OF: Confusion, DENIES: Anxiety Other ROS: Limited ROS secondary to patient's clinical condition. ROS obtained from patient's family, medical records and clinical observation. . Past Family Social History Coded Allergies: adhesive (Unverified Allergy, Severe, SILK TAPE, 07/07/17) NSAIDS (Non-Steroidal Anti-Inflamma (Verified Adverse Reaction, Severe, Nausea/Vomiting, 07/07/17) Past Medical History Hypertension Hyperlipidemia Depression Morbid obesity CKD status post renal transplant Renal cell carcinoma status post right nephrectomy Diabetes mellitus PATRICIA . Past Surgical History Right nephrectomy Kidney transplant Tonsillectomy Lumbar surgery Cholecystectomy . Reported Medications Neoral (Cyclosporine (Modified)) 25 Mg Cap 75 Mg PO BID@06,18 Synthroid (Levothyroxine Sodium) 50 Mcg Tab 50 Mcg PO DAILY@0600 Levemir Inj (Insulin Detemir) 1,000 unit/ 10 ML Vial 4 Units SQ HS Novolog Inj (Insulin Aspart) 1,000 Unit/10 Ml Vial 4 Units SQ DAILY@1200 Novolog Inj (Insulin Aspart) 1,000 Unit/10 Ml Vial 4 Units SQ DAILY@17 Hydrochlorothiazide 25 Mg Tab 25 Mg PO DAILY Hydralazine HCl 25 Mg Tablet 50 Mg PO Q8HR Doxycycline Hyclate 100 Mg Cap 100 Mg PO BID Levemir Inj (Insulin Detemir) 1,000 unit/ 10 ML Vial 50 Units SQ DAILYAC 30 Days Phenergan (Promethazine HCl) 25 Mg Tablet 25 Mg PO Q6H PRN Novolog Inj (Insulin Aspart) 1,000 Unit/10 Ml Vial 1-9 Units SQ ACHS Insulin Syringe/U-100/31G X 12/20" 1 ml 31 Gauge X 12/20" Mis Ea .ROUTE DIRECTED Metoprolol Tartrate 50 Mg Tab 50 Mg PO BID Hydrocodone-Acetaminophen 5-325 mg Tab 1 Tab PO Q8HR PRN Ferosul (Ferrous Sulfate) 325 Mg (65 Mg Iron) Tablet 325 Mg PO BID@12,17 30 Days Senna Plus 8.6-50 mg (Sennosides-Docusate Sodium) 8.6 Mg-50 Mg Tab 1 Tab PO BID 30 Days Norvasc (Amlodipine Besylate) 5 Mg Tab 10 Mg PO DAILY Zofran Odt (Ondansetron Odt) 4 Mg Tab 4 Mg SL Q6HR PRN Zoloft (Sertraline HCl) 100 Mg Tab 200 Mg PO DAILY Flovent Hfa 10.6 GM Inh (Fluticasone Propionate) 44 Mcg/Act Inh 2 Puff INH BID Serevent Diskus Inh (Salmeterol Xinafoate) 50 Mcg/Act Aero 50 Mcg INH BID Ventolin Hfa 18 GM Inh (Albuterol Sulfate) 90 Mcg/Act Aer 2 Puff INH Q4H PRN Calcium 500 + Vit D Caplet (Calcium Carbonate/Vitamin D3) 1 Each Tablet 1 Cap PO BIDPC 30 Days Womens Daily Formula (Multiple Vitamins W/ Minerals) 1 Tab Tab 1 Cap PO DAILY 30 Days Aspir-81 (Aspirin) 81 Mg Tabdr 81 Mg PO DAILY 30 Days Zocor (Simvastatin) 20 Mg Tab 20 Mg PO HS Pepcid (Famotidine) 20 Mg Tab 20 Mg PO BID Prednisone 5 Mg Tab 5 Mg PO DAILY 30 Days Cellcept (Mycophenolate Mofetil) 500 Mg Tab 500 Mg PO BID . Current Medications Medications (Trade) Dose Ordered Sig/Nadir Route Start Time Stop Time Status Last Admin (NS Flush) 2 ml UNSCH PRN IV FLUSH 07/19/17 18:00 (NS Flush) 2 ml BID IV FLUSH 07/19/17 21:00 07/27/17 20:57 (Narcan Inj) 0.4 mg UNSCH PRN IV PUSH 07/19/17 18:00 (D50w (Vial) Inj) 50 ml UNSCH PRN IV PUSH 07/19/17 18:00 (Glucagon Inj) 1 mg UNSCH PRN OTHER 07/19/17 18:00 (Norvasc) 10 mg DAILY PO 07/20/17 09:00 07/27/17 09:12 (Ecotrin Ec) 81 mg DAILY PO 07/20/17 09:00 07/28/17 08:36 (Pepcid) 10 mg BID PO 07/19/17 21:00 07/28/17 08:37 (Ferrous Sulfate) 325 mg BID@ PO 07/20/17 12:00 07/28/17 15:14 (Flovent Hfa 44 Mcg Inh) 2 puff BID INH 07/19/17 21:00 Future Hold 07/21/17 08:40 (Apresoline) 50 mg Q8HR PO 07/19/17 22:00 07/28/17 15:14 (Hydrodiuril) 25 mg DAILY PO 07/20/17 09:00 07/28/17 08:37 (Synthroid) 50 mcg DAILY@0600 PO 07/20/17 06:00 07/28/17 06:37 (Lopressor) 50 mg BID PO 07/19/17 21:00 07/27/17 20:58 (Serevent Diskus Inh) 50 mcg BID INH 07/19/17 21:00 07/21/17 08:40 (Zoloft) 200 mg DAILY PO 07/20/17 09:00 Future Hold 07/20/17 08:30 (Oscal-D 250-125) 250 mg BIDPC PO 07/20/17 09:00 07/28/17 17:51 (Pravachol) 40 mg HS PO 07/19/17 21:00 07/27/17 20:57 (Heparin Inj) 5,000 units Q8HR SQ 07/19/17 22:00 Future hold 07/28/17 13:02 (Morphine Inj) 2 mg Q4HR PRN IV PUSH 07/20/17 06:45 07/21/17 08:42 (Deltasone) 5 mg DAILY PO 07/21/17 09:00 07/28/17 08:37 Sodium Chloride 1,000 ml @ 0 mls/hr Q0M PRN OTHER 07/20/17 13:19 (Heparin Inj) 8,000 units UNSCH PRN IV FLUSH 07/20/17 13:30 Sodium Chloride 1,000 ml @ 200 mls/hr Q5H PRN IV 07/20/17 13:19 07/27/17 13:52 Sodium Chloride 1,000 ml @ 0 mls/hr Q0M PRN OTHER 07/20/17 13:19 (Mannitol Inj) 12.5 gm UNSCH PRN IV 07/20/17 13:30 07/27/17 13:54 Albumin Human 100 ml @ 60 mls/hr UNSCH PRN IV 07/20/17 13:30 07/27/17 13:54 (NS Flush) 5 ml UNSCH PRN IV FLUSH 07/20/17 13:30 (Heparin Inj) UNSCH PRN .XX 07/20/17 13:30 07/27/17 13:52 (Gentamicin (Dialysis) Inj) 20 mg UNSCH PRN OTHER 07/20/17 13:30 07/27/17 13:53 (Zofran Inj) 4 mg UNSCH PRN IV PUSH 07/20/17 13:30 (Tylenol) 650 mg UNSCH PRN PO 07/20/17 13:30 (Benadryl) 25 mg UNSCH PRN PO 07/20/17 13:30 (Nitrostat Sl) 0.4 mg UNSCH PRN SL 07/20/17 13:30 (Catapres) 0.1 mg UNSCH PRN PO 07/20/17 13:30 (Epogen Inj) 10,000 units UNSCH PRN IV PUSH 07/20/17 13:30 07/27/17 13:53 (Gelfoam 12 Mm/7 Mm Top) 1 foam UNSCH PRN TOP 07/20/17 13:30 Azithromycin 500 mg/Sodium Chloride 250 ml @ 250 mls/hr Q24H IV 07/20/17 20:00 07/27/17 19:40 (NS Flush) UNSCH PRN IV FLUSH 07/21/17 14:45 (Heparin Inj) UNSCH PRN IV FLUSH 07/21/17 14:45 Miscellaneous Information Patient in critical care unit? Ass... Q361D .XX 07/21/17 21:00 07/21/17 21:00 Piperacillin Sod/ Tazobactam Sod 50 ml @ 100 mls/hr Q6H IV 07/22/17 02:00 07/28/17 13:03 (Peridex 0.12% Liq) 15 ml BID@08,20 MT 07/22/17 08:00 07/28/17 08:41 Propofol 100 ml @ 4.56 mls/hr TITRATE PRN IV 07/22/17 04:45 07/28/17 17:51 (NovoLOG SUPPLEMENTAL SCALE) 1 Q6HR SQ 07/22/17 12:00 07/26/17 12:00 (Albuterol Neb) 2.5 mg Q2HR NEB PRN NEB 07/22/17 07:45 07/28/17 08:23 (Pulmicort Respule Neb) 0.5 mg Q12HR NEB NEB 07/22/17 09:00 07/28/17 08:23 (Levemir Inj) 5 units Q12HR SQ 07/22/17 09:00 07/27/17 20:57 Fentanyl Citrate 250 ml @ 5 mls/hr TITRATE PRN IV 07/22/17 08:00 07/27/17 05:11 (Phoslo) 667 mg TID PO 07/22/17 09:00 Future Hold 07/28/17 08:36 (Apresoline Inj) 10 mg Q1HR PRN IV PUSH 07/22/17 08:15 07/23/17 02:32 (Trandate Inj) 10 mg Q1HR PRN IV PUSH 07/22/17 08:15 (Nitroglycerin 2% Oint) 2 inch Q6HR PRN TOPICAL 07/22/17 08:15 (Neoral) 100 mg BID@06,18 PO 07/26/17 18:00 07/28/17 17:51 (Reglan Inj) 5 mg Q8HR IV PUSH 07/26/17 22:00 07/28/17 13:02 (Lactulose Liq) 30 ml BID PO 07/28/17 21:00 UNV (Dulcolax Supp) 10 mg DAILY PRN RECTAL 07/28/17 18:00 UNV Family History Patient has 1 son with autism. . Substance Use Tobacco: Denies. Alcohol: Denies. Prescription med abuse: Denies. Illicits: Denies. . Psychosocial History Patient originally from [place]. Moved to [place] in 2001. Patient has been for the past 22 years. They have one son who is 20 years old, special needs secondary to autism. 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 No service. . Spiritual/Cultural Factors Rastafarian kait. . Living Will: Never completed Health Care Surrogate: Never completed Durable Power of [employer] Consultant: Never completed Health Care Surrogate(s): No advance directives completed. As per [place] statute, healthcare proxy decision-making falls to patient's Shantanu Dewey. . Family/friends goals: Patient's electing to continue full aggressive management. . Ethical and Legal Issues Patient unable to participating in medical decision-making. Patient's is acting as healthcare proxy decision maker. . Physical Exam Vital Signs Date Time Temp Pulse Resp B/P (MAP) Pulse Ox O2 Delivery O2 Flow Rate FiO2 07/28/17 18:00 48 07/28/17 16:52 100 40 07/28/17 16:00 40 07/28/17 16:00 98.1 49 18 133/68 (89) 98 07/28/17 16:00 61 07/28/17 14:00 53 07/28/17 12:40 100 40 07/28/17 12:00 97.7 48 48 129/60 (83) 99 07/28/17 12:00 48 07/28/17 12:00 40 07/28/17 10:00 55 07/28/17 08:23 95 40 07/28/17 08:00 40 07/28/17 08:00 59 07/28/17 08:00 97.9 58 18 128/56 (80) 97 07/28/17 06:00 58 07/28/17 05:11 100 100 07/28/17 04:37 98 40 07/28/17 04:00 97.7 52 14 126/56 (79) 98 07/28/17 04:00 52 07/28/17 04:00 40 07/28/17 02:00 55 07/28/17 01:36 96 40 07/28/17 00:00 40 07/28/17 00:00 97.9 53 12 129/60 (83) 96 07/28/17 00:00 53 07/27/17 22:00 56 07/27/17 20:00 98.1 63 14 142/108 (119) 96 07/27/17 20:00 63 07/27/17 20:00 40 07/27/17 19:29 96 40 07/28/17 07/29/17 19:00 07:00 Intake Total 250 ml Output Total 400 ml Balance -150 ml Other 250 ml Output Urine Total 400 ml Exam CONSTITUTIONAL/GENERAL: This is a morbidly obese female resting in bed in no acute distress. Ill looking. TUBES/LINES/DRAINS: ETT, OG, Grant catheter, rectal tube, SCDs. SKIN: Very pale, greenish tint to skin. No jaundice, rashes, or lesions. Ecchymoses on upper extremities. No wounds seen anteriorly. Skin temperature appropriate. Not diaphoretic. HEAD: Atraumatic. Normocephalic. EYES: Pupils equal and round and reactive.No scleral icterus. No injection or drainage. Fundi not examined. ENT: Unable to evaluate hearing secondary to clinical condition. Nose without bleeding or purulent drainage. Moist oral mucosa. Endotracheally intubated. NECK: Trachea midline. Supple. CARDIOVASCULAR: Regular rate, bradycardic with heart rate in the 50s.. Week pedal pulses. RESPIRATORY/CHEST: Symmetric, unlabored respirations. Clear, diminished to auscultation. GASTROINTESTINAL: Abdomen obese, large, round. Areas of hardening noted underneath surgical scars. Bowel sounds present. Unable to asses for hepatomegaly secondary to body habitus. GENITOURINARY: Without palpable bladder distension. Grant catheter in place. MUSCULOSKELETAL: Extremities without clubbing, cyanosis. Anasarca. NEUROLOGICAL: Unresponsive to verbal or tactile stimuli. Sedated. PSYCHIATRIC: Unable to assess secondary to clinical condition. Appears calm. . Diagnostic Tests Laboratory Laboratory Tests Test 07/25/17 18:40 07/26/17 05:49 07/26/17 09:14 07/27/17 04:43 White Blood Count 5.1 TH/MM3 (4.0-11.0) 5.9 TH/MM3 (4.0-11.0) 6.6 TH/MM3 (4.0-11.0) Red Blood Count 2.35 MIL/MM3 (4.00-5.30) 2.72 MIL/MM3 (4.00-5.30) 2.79 MIL/MM3 (4.00-5.30) Hemoglobin 8.0 GM/DL (11.6-15.3) 7.4 GM/DL (11.6-15.3) 7.8 GM/DL (11.6-15.3) Hematocrit 20.4 % (35.0-46.0) 23.5 % (35.0-46.0) 24.3 % (35.0-46.0) Mean Corpuscular Volume 86.8 FL (80.0-100.0) 86.5 FL (80.0-100.0) 87.0 FL (80.0-100.0) Mean Corpuscular Hemoglobin 34.2 PG (27.0-34.0) 27.4 PG (27.0-34.0) 27.9 PG (27.0-34.0) Mean Corpuscular Hemoglobin Concent 39.4 % (32.0-36.0) 31.7 % (32.0-36.0) 32.1 % (32.0-36.0) Red Cell Distribution Width 15.4 % (11.6-17.2) 15.4 % (11.6-17.2) 15.6 % (11.6-17.2) Platelet Count 157 TH/MM3 (150-450) 162 TH/MM3 (150-450) 169 TH/MM3 (150-450) Mean Platelet Volume 7.9 FL (7.0-11.0) 7.6 FL (7.0-11.0) 7.2 FL (7.0-11.0) Neutrophils (%) (Auto) 77.7 % (16.0-70.0) 70.4 % (16.0-70.0) Lymphocytes (%) (Auto) 9.2 % (9.0-44.0) 13.9 % (9.0-44.0) Monocytes (%) (Auto) 8.4 % (0.0-8.0) 11.2 % (0.0-8.0) Eosinophils (%) (Auto) 4.2 % (0.0-4.0) 3.7 % (0.0-4.0) Basophils (%) (Auto) 0.5 % (0.0-2.0) 0.8 % (0.0-2.0) Neutrophils # (Auto) 3.9 TH/MM3 (1.8-7.7) 4.6 TH/MM3 (1.8-7.7) Lymphocytes # (Auto) 0.5 TH/MM3 (1.0-4.8) 0.9 TH/MM3 (1.0-4.8) Monocytes # (Auto) 0.4 TH/MM3 (0-0.9) 0.7 TH/MM3 (0-0.9) Eosinophils # (Auto) 0.2 TH/MM3 (0-0.4) 0.2 TH/MM3 (0-0.4) Basophils # (Auto) 0.0 TH/MM3 (0-0.2) 0.1 TH/MM3 (0-0.2) CBC Comment AUTO DIFF AUTO DIFF Differential Comment AUTO DIFF CONFIRMED FINAL DIFF MANUAL Platelet Estimate NORMAL (NORMAL) NORMAL (NORMAL) Platelet Morphology Comment NORMAL (NORMAL) NORMAL (NORMAL) Acanthocytes 3+ (NORMAL) Hematology Comments Blood Gas Puncture Site LT RADIAL Blood Gas Patient Temperature 98.6 Blood Gas HCO3 27 mmol/L (22-26) Blood Gas Base Excess 1.9 mmol/L (-2-2) Blood Gas Oxygen Saturation 91 % (90-100) Arterial Blood pH 7.38 (7.380-7.420) Arterial Blood Partial Pressure CO2 45 mmHg (38-42) Arterial Blood Partial Pressure O2 69 mmHg (61-120) Arterial Blood Oxygen Content 9.6 Vol % (12.0-20.0) Arterial Blood Carboxyhemoglobin 1.3 % (0-4) Arterial Blood Methemoglobin 1.5 % (0-2) Blood Gas Hemoglobin 7.4 G/DL (12.0-16.0) Oxygen Delivery Device VENTILATOR Blood Gas Ventilator Setting SEE COMMENT Blood Gas Inspired Oxygen 40 % Blood Urea Nitrogen 47 MG/DL (7-18) 47 MG/DL (7-18) Creatinine 2.92 MG/DL (0.50-1.00) 2.96 MG/DL (0.50-1.00) Random Glucose 132 MG/DL (74-106) 80 MG/DL (74-106) Calcium Level 8.1 MG/DL (8.5-10.1) 8.2 MG/DL (8.5-10.1) Phosphorus Level 3.4 MG/DL (2.5-4.9) 4.0 MG/DL (2.5-4.9) Magnesium Level 2.3 MG/DL (1.5-2.5) 2.3 MG/DL (1.5-2.5) Sodium Level 135 MEQ/L (136-145) 136 MEQ/L (136-145) Potassium Level 3.5 MEQ/L (3.5-5.1) 3.8 MEQ/L (3.5-5.1) Chloride Level 99 MEQ/L (98-107) 100 MEQ/L (98-107) Carbon Dioxide Level 27.2 MEQ/L (21.0-32.0) 24.9 MEQ/L (21.0-32.0) Anion Gap 9 MEQ/L (5-15) 11 MEQ/L (5-15) Estimat Glomerular Filtration Rate 17 ML/MIN (>89) 16 ML/MIN (>89) Cyclosporine Level 46 COMMENT Differential Total Cells Counted 100 Neutrophils % (Manual) 65 % (16-70) Band Neutrophils % 2 % (0-6) Lymphocytes % 20 % (9-44) Monocytes % 9 % (0-8) Eosinophils % 3 % (0-4) Neutrophils # (Manual) 4.5 TH/MM3 (1.8-7.7) Myelocytes 1 % (0-0) Nucleated Red Blood Cells 1 /100 WBC (0-0) Ovalocytes 1+ (NORMAL) Albumin 2.5 GM/DL (3.4-5.0) Test 07/27/17 19:02 07/28/17 05:49 Ammonia 24 MCMOL/L (11-32) White Blood Count 6.7 TH/MM3 (4.0-11.0) Red Blood Count 2.95 MIL/MM3 (4.00-5.30) Hemoglobin 8.2 GM/DL (11.6-15.3) Hematocrit 25.9 % (35.0-46.0) Mean Corpuscular Volume 87.8 FL (80.0-100.0) Mean Corpuscular Hemoglobin 28.0 PG (27.0-34.0) Mean Corpuscular Hemoglobin Concent 31.9 % (32.0-36.0) Red Cell Distribution Width 15.7 % (11.6-17.2) Platelet Count 182 TH/MM3 (150-450) Mean Platelet Volume 7.3 FL (7.0-11.0) Blood Urea Nitrogen 36 MG/DL (7-18) Creatinine 2.50 MG/DL (0.50-1.00) Random Glucose 77 MG/DL (74-106) Calcium Level 8.6 MG/DL (8.5-10.1) Sodium Level 138 MEQ/L (136-145) Potassium Level 3.4 MEQ/L (3.5-5.1) Chloride Level 101 MEQ/L (98-107) Carbon Dioxide Level 29.4 MEQ/L (21.0-32.0) Anion Gap 8 MEQ/L (5-15) Estimat Glomerular Filtration Rate 20 ML/MIN (>89) Result Diagram: 07/28/17 0549 07/28/17 0549 Microbiology Microbiology Date/Time Source Procedure Growth Status 07/20/17 21:46 Blood Peripheral Aerobic Blood Culture - Final NO GROWTH IN 5 DAYS Complete 07/20/17 21:46 Blood Peripheral Anaerobic Blood Culture - Final NO GROWTH IN 5 DAYS Complete 07/25/17 13:19 Fluid Pleural Fluid Fungal Smear - Final NO FUNGAL ELEMENTS SEEN. Resulted 07/25/17 13:19 Fluid Pleural Fluid Fungal Culture Pending Resulted 07/24/17 16:20 Bronchial Washings Bronchial Gram Stain - Final Complete 07/24/17 16:20 Bronchial Washings Bronchial Bronchial Culture - Final NO GROWTH IN 48 HOURS. Complete 07/25/17 16:44 Urine Clean Catch Urine Culture - Final NO GROWTH IN 48 HOURS. Complete Imaging Last Impressions Head CT 07/27/17 0000 Signed Impressions: Service Date/Time: Friday, July 28, 2017 04:59 - CONCLUSION: No acute intracranial findings To Coates MD Abdomen X-Ray 07/27/17 0000 Signed Impressions: Service Date/Time: July 10:42 - CONCLUSION: Normal examination. Cam Cristina MD Chest X-Ray 07/26/17 0600 Signed Impressions: Service Date/Time: Wednesday, July 26, 2017 03:13 - CONCLUSION: Cardiomegaly with diffuse increased opacity likely related to CHF. Bilateral effusions can be considered. To Leija MD Thoracentesis Ultrasound 07/25/17 0000 Signed Impressions: Service Date/Time: Tuesday, July 25, 2017 12:49 - CONCLUSION: Uncomplicated ultrasound guided thoracentesis. Varghese Baker MD Chest Ultrasound 07/24/17 1600 Signed Impressions: Service Date/Time: Monday, July 24, 2017 17:18 - CONCLUSION: There is a moderate-sized right pleural effusion confirmed by ultrasound Rosalino Morgan MD Upper Extremity Ultrasound 07/23/17 0000 Signed Impressions: Service Date/Time: Sunday, July 23, 2017 07:48 - CONCLUSION: No evidence of deep venous thrombosis within the upper extremities. Florin Michelle MD Catheter Placement X-Ray 07/21/17 0000 Signed Impressions: Service Date/Time: Friday, July 21, 2017 14:47 - CONCLUSION: Uncomplicated PermaCath placement as above. Idris Diaz MD Abdomen/Pelvis CT 07/19/17 0000 Signed Impressions: Service Date/Time: Wednesday, July 19, 2017 16:25 - CONCLUSION: 1. Status post right nephrectomy with no acute findings in the right renal fossa. 2. New bibasilar consolidating infiltrate and small bilateral effusions. 3. Anasarca 4. 3 cm left renal mass; unchanged. 5. Status post cholecystectomy. Schuyler Saucedo MD Procedures * 07/21/17 -right IJ placement * 07/22/17 -endotracheal intubation * 07/24/17 -bronchoscopy * 07/25/17 -US guided thoracentesis . Patient/Family Conference Present at Family Conference: Patient's Shantanu Dewey. Family Conference Time (mins): 38 Family Conference Location: Telephone Issues Discussed: * Palliative care role, purpose, approach * Additional medical, psychosocial, and spiritual history * Patients general health, functional status, and cognitive changes in the months leading up to the current hospitalization * Patient/family understanding of the current medical problems -persistent encephalopathy, renal failure, pneumonia on an immunocompromised patient, hypoxemic respiratory failure,. * Patient/family understanding of prognosis -guarded prognosis * Patients goals of care as best understood from advance directives and/or conversations and/or values * Current medical treatment options and benefits/burdens of those options * Questions answered to the best of my ability * Palliative care contact information provided * Risks, benefits and limitations of CPR -cardiac code given patient's clinical condition . Assessment and Plan Disease Oriented Problem List: (1) Hypoxemic respiratory failure, chronic (2) Pneumonia (3) EDITH (acute kidney injury) (4) Encephalopathy (5) Anemia, chronic disease (6) Morbid obesity (7) History of kidney transplant Symptom Scale: (1) Dyspnea 0-10 Scale: Unable to quantify Comment: Currently on ventilator support. (2) Pain 0-10 Scale: Unable to quantify Comment: On fentanyl drip. (3) Debility 0-10 Scale: Unable to quantify Comment: Progressive secondary to chronic, acute illness. Pertinent Non-Medical Issues Psychosocial: Patient originally from [place]. Moved to [place] in 2001. Patient has been for the past 22 years. They have one son who is 20 years old, special needs secondary to autism. 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 No service. Spiritual: Rastafarian kait. Legal: No advance directives completed. Ethical issues impacting care: No ethical issues identified. . Important Contacts Patient's Shantanu Dewey , . . Prognosis Mrs. Dewey is a 56-year-old female with a medical history significant for chronic kidney disease status post renal transplant, diabetes mellitus type 2, hypertension, morbid obesity. Patient with history of left kidney transplant in 2000, with radical right nephrectomy of [place] kidneys secondary to renal cancer in May 2017. Patient with progressive decline and multiple recent acute hospitalizations and rehabilitation. Clinical condition complicated by persistent encephalopathy, hypoxemia respiratory failure requiring intubation and mechanical ventilation. Patient's overall prognosis is guarded at this time , she remains a high risk for further complications, continue decline and . . Code Status: Full Code Plan * CODE STATUS: FULL code. Risks, benefits and limitations of cardiac code discussed with patient's . * HEALTHCARE DECISION: Patient unable to participating medical decision-making secondary to clinical condition, stated encephalopathy. Unclear at this time if she will regain medical decision-making capacity. No advance directives completed. As per [place] statute, healthcare proxy decision-making falls to patient's Shantanu Dewey. has accepted this role. * GOALS OF CARE: Patient's Shantanu Dewey acting as healthcare proxy decision maker has elected to continue aggressive management to include full code. verbalized that patient's quality of life is his main priority. He would like to allow a few more days for clinical improvement, may consider changing code status should her clinical condition does not improve or worsen. Tracheostomy and PEG tube conversation initiated should patient is unable to medically extubate. receptive to palliative care follow-ups for further clarifications of goals of care. * SYMPTOMS: = Shortness of breath, secondary to respiratory failure, pna. Remains intubated on mechanical ventilation. Not tolerating CPAP trial secondary to agitation. = Pain, secondary to intubation, lines, bedrest, acute illness. Currently on fentanyl drip. Appears comfortable during my visit. = Debility, progressive. Worsen since May. Likely to continue to worsen given acute illness, multiple comorbidities and baseline functional status (bed to wheelchair bound). * Case discussed with Dr. Arias and bedside RN Andry. * Palliative care contact information has been provided to patient's . * Palliative care will continue to follow-up for further clarifications of goals of care as patient's clinical course continues to evolve. . Time Spent Total Floor Time (mins): 81 (Total time to include review and summarization of available medical records to include multiple prior acute hospitalizations, physical exam, goals of care conversation with patient's , case discussion with Dr. Arias and bedside RN.) >50% Counseling/Coord of Care: Yes Thank you for the opportunity to participate in the care of Ms. Dewey. Attestation To help prompt me to consider important information that might be impacting today's encounter and assessment, information from prior notes written by myself or my colleagues may have been "brought forward" into today's note. My signature on this note, however, is an attestation that I personally performed the exam, history, and/or decision-making noted today, and, unless otherwise indicated, the interactions with patient, family, and staff as well as the review of records all occurred today. I also attest that the listed assessment and stated plan reflect my best clinical judgment today based on the combination of historical information, prior notes, and today's exam/ interactions. When time spent is documented, it refers only to time spent today by the signer, or if indicated, combined time spent today by collaborating physician/nurse practitioner. Smita Chirinos Jul 28, 2017 19:06
[2017-07-28] MEDS: AZITHROMYCIN 500 MG/NS 250 ML IV SCH ×2 (20:48)
[2017-07-28] MEDS: PRAVASTATIN SOD 40 MG TAB PO SCH (20:55)
[2017-07-28] MEDS: LACTULOSE SYRUP 20 GM/30 ML CUP PO SCH (20:55)
--- NOTE | 2017-07-28 21:36 | MG ---
cc: AIYANA LOAIZA MD Lab No: [id number] Date: 07/28/2017 Age: 56 Sex: F Race: 56-year-old history mental status changes, intubated on propofol fentanyl drip. 1-3 Hz generalized delta activity with spindles noted 10-40 microvolts. No driving with photic stimulation. Single lead EKG showing sinus rhythm. INTERPRETATION: Moderate to severe encephalopathy with spindles, may be pharmacologically induced. No epileptic activity noted. Clinical correlation. Aiyana Loaiza MD MG/JCPat /8:21 PM /9:12 PM
[2017-07-29] VITALS (20 sets, daily range): BP systolic 105–146; BP diastolic 51–66; PULSE 47–58; RESP 16–18; TEMP 98.1–98.6; O2SAT 99–100
[2017-07-29] MEDS: PROPOFOL 1000 MG/100 ML INJ 100 ML IV PRN ×10 (00:50→23:00)
[2017-07-29] MEDS: PIPERACIL-TAZO 2.25 GM PREMIX 50 ML IV SCH ×4 (03:16→20:17)
[2017-07-29] MEDS: fentaNYL DRIP 250 ML IV PRN (05:38)
[2017-07-29] MEDS: INSULIN ASPART SUPPLEMENTAL SCALE SQ SCH ×4 (05:40→17:52)
[2017-07-29] MEDS: METOCLOPRAMIDE HCL 10 MG/2 ML VIAL IV PUSH SCH ×3 (05:40→20:17)
[2017-07-29] MEDS: HEPARIN SODIUM - SQ 10,000 UNITS/ML VIAL SQ SCH ×3 (05:41→20:18)
[2017-07-29] MEDS: LEVOTHYROXINE SODIUM 50 MCG TAB PO SCH (05:41)
[2017-07-29] MEDS: hydrALAZINE HCL 25 MG TAB PO SCH ×3 (05:41→20:18)
[2017-07-29 08:47] LABS: ALBUMIN 2.6 GM/DL (3.4-5.0); BICARBONATE 24.6 MEQ/L (21.0-32.0); CALCIUM 8.4 MG/DL (8.5-10.1); CREATININE 2.63 MG/DL (0.50-1.00); PHOSPHORUS 3.6 MG/DL (2.5-4.9)
[2017-07-29] MEDS: predniSONE 5 MG TAB PO SCH (08:53)
[2017-07-29] MEDS: CALCIUM/VITAMIN D 250 MG/125 U TAB PO SCH ×2 (08:53→17:52)
[2017-07-29] MEDS: METOPROLOL TARTRATE 50 MG TAB PO SCH ×2 (08:53→20:31)
[2017-07-29] MEDS: FAMOTIDINE 20 MG TAB PO SCH ×2 (08:53→20:17)
[2017-07-29] MEDS: amLODIPine BESYLATE 5 MG TAB PO SCH (08:53)
[2017-07-29] MEDS: HYDROCHLOROTHIAZIDE 25 MG TAB PO SCH (08:53)
[2017-07-29] MEDS: INSULIN DETEMIR 100 UNITS/ML VIAL SQ SCH ×2 (08:54→20:18)
[2017-07-29] MEDS: SODIUM CHLORIDE 0.9% FLUSH 10 ML FLUSH IV FLUSH SCH ×2 (08:54→20:18)
[2017-07-29] MEDS: ASPIRIN EC 81 MG TABEC PO SCH (08:54)
[2017-07-29] MEDS: SALMETEROL XINAFOATE 50 MCG DISKUS INH SCH ×2 (08:54→20:31)
[2017-07-29] MEDS: LACTULOSE SYRUP 20 GM/30 ML CUP PO SCH ×2 (08:54→20:15)
[2017-07-29] MEDS: CHLORHEXIDINE 0.12% (ORAL KIT) 15 ML CUP MT SCH ×2 (08:54→20:17)
[2017-07-29] MEDS: RESP: BUDESONIDE 0.5 MG/2 ML NEB NEB SCH ×2 (09:09→20:02)
--- NOTE | 2017-07-29 11:27 | HHI.NPPN ---
Subjective Renal Failure: Chronic, Acute Additional Remarks Patient remain on the vent. and sedated. Review of Systems General General Remarks unable to evaluate Cardiovascular Cardiac: Edema Objective Data Data Vital Signs Date Time Temp Pulse Resp B/P (MAP) Pulse Ox O2 Delivery O2 Flow Rate FiO2 07/29/17 10:00 55 07/29/17 09:10 100 40 07/29/17 08:00 40 07/29/17 08:00 98.6 58 18 125/59 (81) 100 07/29/17 08:00 58 07/29/17 06:00 53 07/29/17 04:14 100 40 07/29/17 04:00 54 07/29/17 04:00 97.7 54 131/61 (84) 99 07/29/17 04:00 40 07/29/17 02:00 50 07/29/17 00:27 99 40 07/29/17 00:00 95.7 50 121/66 (84) 99 07/29/17 00:00 50 07/29/17 00:00 40 07/28/17 22:00 51 07/28/17 22:00 95.2 51 133/60 (84) 98 07/28/17 20:49 99 40 07/28/17 20:00 53 07/28/17 20:00 95.2 53 147/65 (92) 100 07/28/17 20:00 40 07/28/17 18:00 48 07/28/17 16:52 100 40 07/28/17 16:00 40 07/28/17 16:00 98.1 49 18 133/68 (89) 98 07/28/17 16:00 61 07/28/17 14:00 53 07/28/17 12:40 100 40 07/28/17 12:00 97.7 48 48 129/60 (83) 99 07/28/17 12:00 48 07/28/17 12:00 40 -: 07/28/17 0549 07/29/17 0756 Tubes & Lines: Perma-Cath, Grant Tubes & Lines Comment rectal bag Drip Comment Propofol, fentanyl Physical Exam General Appearance: Obese Appearance Remarks Intubated and sedated. Eyes Eye Exam: Pupils Equal Neck Neck Exam: Neck Supple Pulmonary Resp Exam: Crackles, Rhonchi, Decreased Bases, Diminished Breath Sounds Cardiology CV Exam: Regular, Normal Sinus Rhythm Gastrointestinal/Abdomen GI Exam: Soft, Non-Tender, Bowel Sounds Present Musculoskeletal MS Exam: Normal Tone, Unable to Ambulate Integumentary Skin Exam: Warm, Dry Extremeties Extremities Exam: Moderate Edema, Pitting Edema, Dependent Edema Neurologic Neuro Exam: Unresponsive, Sedated Assessment/Plan Assessment Summary: Anemia of CKD, Hypertension, Diabetes Mellitus Problem List: (1) EDITH (acute kidney injury) ICD Codes: N17.9 - Acute kidney failure, unspecified Status: Acute Plan: Has hx of renal transplant in 2000 and a hx of nephrectomy due to renal cell CA in 2017 Residual CKD, baseline appears to be 2.6-2.8 She may have suffered ATN or worsening chronic graft loss. She is oliguric but output may be improving. HD initiated on 07/21, currently on TTS HD currently. Monitor renal function daily. It remains to be seen if her renal function will recover. Creatinine not that far from baseline but urine output is marginal. Maintain Grant catheter in place for now. Creatinine is almost same, K is better. Avoid IVF, nephrotoxic agents. Vancomycin was stopped. Phosphorus is acceptable. Hold Calcium acetate and monitor renal panel. Resume if needed. HD again today, mainly to remove fluid. (2) H/O kidney transplant ICD Codes: Z94.0 - Kidney transplant status Status: Acute Plan: Patient has a failing allograft Continue immunosuppression, she is on prednisone and cyclosporine. Cellcept has been discontinued due to hx of RCC. Monitor cyclosporine level, it is currently low. Dosage increased to 100 mg BID (3) Diabetes ICD Codes: E11.9 - Type 2 diabetes mellitus without complications Status: Chronic Plan: Monitor glucose, maintain 140-180 mg/dL this admission (4) HTN (hypertension) ICD Codes: I10 - Essential (primary) hypertension Status: Chronic Plan: Continue medications as ordered, titrate as needed (5) Pneumonia ICD Codes: J18.9 - Pneumonia, unspecified organism Plan: ID following, On Zosyn and Zithromax Chest xray reviewed, s/p left thoracentesis, 975 ml removed On CPAP trial. May require trach soon. Continue vent bundle. Plan patient was seen and examined. Agree with above assessment and plan. Monitor urine output. Dialysis likely tomorrow. Problem Qualifiers (1) Diabetes: Becky Angeles MD Jul 29, 2017 11:27
[2017-07-29] MEDS: FERROUS SULFATE 325 MG (65 MG ELEMENTAL IRON) TAB PO SCH ×2 (12:00→17:52)
--- NOTE | 2017-07-29 17:11 | HHI.CCPN ---
Subjective Remarks/Hospital Course I was asked to see patient this evening due to excessive somnolence. She was protecting her airway adequately but otherwise unresponsive except to loud voice or noxious stimulation. She was just started back on dialysis after a renal transplant failed. She has a past medical history of hypertension, hyperlipidemia, depression, morbid obesity, CKD status post renal transplant, renal cell carcinoma status post right nephrectomy, diabetes mellitus and sleep apnea. She presented to the ER 2 days ago with persistent vomiting despite home medication with Zofran and Phenergan. Patient also complains of generalized abdominal pain, worst in the epigastric region. She was discharged from the hospital on 07/13 where she was treated for acute on chronic kidney injury, generalized weakness and hyperkalemia. She is chronically on 2-3 L nasal cannula at home with a history of asthma. She denies any fever/chills. H&H 7.6 /23.8 which is approximately patient's baseline. BUN/creatinine 86/3.89, patient's creatinine 2.66 on 07/13. Chest x-ray showed bibasilar airspace disease with possible bilateral pleural effusions. CT of the abdomen/pelvis with new bibasilar consolidating infiltrate and 3 cm left renal mass which is unchanged from previous. Presently, her respiratory effort is satisfactory and she controls her airway. Major concern is for CO2 retention. Subjective 07/22: Currently orotracheally intubated. On low dose propofol drip at 10 mcg/ kg per minute. Arousable on the ventilator and appointments. Will initiate tube feeding today. 07/23: Afebrile. Patient received transfusion yesterday 1 unit of packed red blood cells hemoglobin stable this a.m.. Patient underwent hemodialysis yesterday approximately 4500 cc removed. Patient continues on sedation for ventilator synchrony. Chest x-ray appears to be worsening. CT brain revealed no abnormalities. 07/24: Afebrile. Chest x-ray showed complete near-complete opacification of the left lung, bronchoscopy planned. Patient noted to have pleural effusions right, ultrasound quantification of pleural effusion pending. Mucomyst initiated. 07/25: Patient's Hgb 6.1 this am, planned in one unit of PRBC. Patient noted large left effusion greater than 770 cc. Thoracentesis performed approximately 990 cc removed from left side. Chest x-ray pending post procedure. BAL performed yesterday, results pending. 07/26: Afebrile. JHONY globin stable as post transfusion yesterday. Patient noted to have high gastric residuals greater than 550 cc, Reglan initiated every 8 hours. IHD 4 L off yesterday. Chest x-ray continues to worsen. 07/27: Sedation vacation again performed today patient writhing around in bed not following commands, continues to appear altered. CT brain EEG ammonia level pending. Patient currently undergoing IHD with targeted to fluid removal of 4 L. KUB performed for persistent residuals no acute abnormality. 07/28: Neurologically the patient thrashing around on not following commands. CT performed negative, EEG negative. Patient noted to have high residuals, patient continues on Reglan 5 mg every 8 hours, and is having daily bowel movements . KUB does not reveal an ileus .GI has been consulted. 07/29: No acute changes overnight. The patient remains nothing by mouth secondary to high residuals. Consult with GI pending. CT of the abdomen and pelvis ordered. Objective Vital Signs Date Time Temp Pulse Resp B/P (MAP) Pulse Ox O2 Delivery O2 Flow Rate FiO2 07/29/17 16:00 47 07/29/17 15:46 100 35 07/29/17 12:00 98.1 18 129/59 (82) Intake and Output 07/29/17 07/29/17 07/30/17 08:00 16:00 00:00 Intake Total 720 ml 200 ml Output Total 700 ml 5000 ml Balance 20 ml 200 ml -5000 ml Result Diagram: 07/28/17 0549 07/29/17 0756 Imaging Last Impressions Chest X-Ray 07/24/17 0600 Signed Impressions: Service Date/Time: Monday, July 24, 2017 04:01 - CONCLUSION: 1. Near- total opacification of the left chest likely related to diffuse atelectasis or consolidation. 2. Right consolidation or atelectasis especially at the base. Some degree of right effusion needs to be considered. To Leija MD Upper Extremity Ultrasound 07/23/17 0000 Signed Impressions: Service Date/Time: Sunday, July 23, 2017 07:48 - CONCLUSION: No evidence of deep venous thrombosis within the upper extremities. Florin Michelle MD Head CT 07/22/17 0000 Signed Impressions: Service Date/Time: Sunday, July 23, 2017 03:07 - CONCLUSION: No acute intracranial abnormality demonstrated. To [place] MD Catheter Placement X-Ray 07/21/17 0000 Signed Impressions: Service Date/Time: Friday, July 21, 2017 14:47 - CONCLUSION: Uncomplicated PermaCath placement as above. Idris Diaz MD Abdomen/Pelvis CT 07/19/17 0000 Signed Impressions: Service Date/Time: Wednesday, July 19, 2017 16:25 - CONCLUSION: 1. Status post right nephrectomy with no acute findings in the right renal fossa. 2. New bibasilar consolidating infiltrate and small bilateral effusions. 3. Anasarca 4. 3 cm left renal mass; unchanged. 5. Status post cholecystectomy. Schuyler Saucedo MD Last Impressions Chest X-Ray 07/23/17 0600 Signed Impressions: Service Date/Time: Sunday, July 23, 2017 03:39 - CONCLUSION: Worsening effusions and bibasilar consolidation. To Madera MD Head CT 07/22/17 0000 Signed Impressions: Service Date/Time: Sunday, July 23, 2017 03:07 - CONCLUSION: No acute intracranial abnormality demonstrated. To Madera MD Catheter Placement X-Ray 07/21/17 0000 Signed Impressions: Service Date/Time: Friday, July 21, 2017 14:47 - CONCLUSION: Uncomplicated PermaCath placement as above. Idris Diaz MD Abdomen/Pelvis CT 07/19/17 0000 Signed Impressions: Service Date/Time: Wednesday, July 19, 2017 16:25 - CONCLUSION: 1. Status post right nephrectomy with no acute findings in the right renal fossa. 2. New bibasilar consolidating infiltrate and small bilateral effusions. 3. Anasarca 4. 3 cm left renal mass; unchanged. 5. Status post cholecystectomy. Schuyler Saucedo MD Last Impressions Catheter Placement X-Ray 07/21/17 0000 Signed Impressions: Service Date/Time: Friday, July 21, 2017 14:47 - CONCLUSION: Uncomplicated PermaCath placement as above. Idris Diaz MD Chest X-Ray 07/19/17 0000 Signed Impressions: Service Date/Time: Wednesday, July 19, 2017 16:37 - CONCLUSION: Bibasilar airspace disease with possible bilateral effusions. Mild cardiomegaly. Schuyler Saucedo MD Abdomen/Pelvis CT 07/19/17 0000 Signed Impressions: Service Date/Time: Wednesday, July 19, 2017 16:25 - CONCLUSION: 1. Status post right nephrectomy with no acute findings in the right renal fossa. 2. New bibasilar consolidating infiltrate and small bilateral effusions. 3. Anasarca 4. 3 cm left renal mass; unchanged. 5. Status post cholecystectomy. Schuyler Saucedo MD Objective Remarks GENERAL: 56-year-old morbidly obese female, resting in bed orotracheally intubated on sedation vacation, not following commands moving extremities spontaneously, thrashing SKIN: Warm and dry. HEAD: Atraumatic. Normocephalic. EYES: Pupils 2 mm, equal round and reactive. Extraocular motions intact ENT: Throat without erythema. Endotracheal intubation NECK: Trachea midline. Supple, nontender, right IJ tunneled cuffed catheter in place for hemodialysis CARDIOVASCULAR: Bradycardic, RR. S1, S2 no S4. Without murmurs, clicks, gallops or rub. Unable to assess JVD secondary to body habitus RESPIRATORY:. Breath sounds equal bilaterally. No wheezes, rales, or rhonchi. Diminished throughout. GASTROINTESTINAL: Abdomen obese; soft, nontender, nondistended. Fixed mass in hernia right side, nontender. BS active. MUSCULOSKELETAL: 2+ peripheral edema left upper extremity, trace to 1+ right upper extremity chronic. Well perfused. NEUROLOGICAL: RASS -3. Cranial nerves II through XII appear grossly intact. Positive gag and corneal reflex. Withdraws to pain in all 4 extremities on sedation currently. Sedation vacation patient is moving extremities spontaneously does not follow any commands, deviant gaze A/P Assessment and Plan Neuro/Psych: Acute toxic metabolic encephalopathy Depression disorder NOS Altered mental status Currently on propofol/fentanyl drips for sedation/analgesia while intubated Goal of RASS -2 Continue daily sedation vacation Holding sertraline 200 mg by mouth daily for depression. While on linezolid. Resume when clinically indicated 07/27 Follow-up CT brain, EEG, ammonia level- negative CV: Hypertension Dyslipidemia Currently on amlodipine 10 mg daily, hydralazine 50 mg every 8 hours, HCTZ 25 mg daily and metoprolol 50 mg by mouth twice a day for hypertension. Currently on Pravachol 40 mg daily for dyslipidemia. NS IVF discontinued 07/24 Resp: Acute on chronic hypoxemic respiratory failure Chronic home O2 dependency at 3 L at home History of asthma PRVC 18/550/0.9/5/40 Ventilator bundle Albuterol/ipratropium aerosols every 4 hours with albuterol aerosols every 2 hours. Dyspnea Add budesonide 0.5/2 1 inhalation twice a day On fluticasone 44 g 2 puffs twice a day and salmeterol 50 g inhaled twice a day at home CXR 07/23 worsening effusions and bibasilar consolidation small right and moderate left pleural effusions 07/23 US guided marking of lungs 770cc on left, 276 on right 07/25 S/P right thoracentesis 990 cc removed ETT- Day 7 possible consideration for tracheostomy GI: Hypoalbuminemia Tube feeding with Suplena goal 55 cc an hour, currently of 40 cc/hour-07/26 elevated residuals, Reglan 5 mg every 8 hours initiated 07/28patient continues to not tolerate tube feeds high residuals noted. GI has been consulted Famotidine for GI prophylaxis Docusate sodium/senna 1 tablet twice a day, Lactulose 30 cc twice a day and Docusate suppository when necessary added for bowel regimen : Maintain Grant catheter Endo: Diabetes mellitus Hypothyroidism Currently on insulin detemir 5 units twice a day with Novulog sliding scale insulin every 6 hours to maintain euglycemia On detemir 50 units in a.m. 4 units at night at home along with insulin Aspart sliding scale insulin Continue levothyroxine 50 mcg by mouth daily for hypothyroidism. 07/23 TSH- WNL. Renal: History renal cell cancer 3 cm left renal mass Status post right nephrectomy May 2017 for renal cell carcinoma Failing autologous renal transplant on chronic immunosuppression Currently on cyclosporine 75 mg twice a day. Holding CellCept 500 mg twice a day. IHD schedule per nephrology. 4 L removed yesterday Urine output last 24 hours-250cc Follow creatinine daily. Heme: Anemia of chronic kidney disease Continue iron sulfate 325 mg twice a day Serial hemoglobins daily. Maintain hemoglobin greater than 7 ID: Pneumonia Currently on linezolid, azithromycin and piperacillin/tazobactam 07/20 Blood cultures 2- NGTD CMV pending 07/22 Sputum- pending 07/22 Influenza -neg 12/16-Legionella, pneumococcal-pending Infectious disease following FEN: Hyperphosphatemia Continue phosphate binder Replace electrolytes as clinically indicated MSK: Elevated BMI greater than 50 Charcot foot Weight loss encouraged. PT evaluate and treat Access - Utilize peripheral IV. Central line if indicated Prophylaxis - GI - famotidine -DVT- SCD/heparin subcutaneous Dispo: Level 3 D/W Courtney [employer] at bedside Physician Vivian Goff MD Jul 29, 2017 17:11
[2017-07-29] MEDS: AZITHROMYCIN 500 MG/NS 250 ML IV SCH ×2 (20:15)
[2017-07-29] MEDS: SODIUM CHLORIDE 0.9% FLUSH 10 ML FLUSH IV FLUSH PRN (20:19)
--- NOTE | 2017-07-29 20:27 | HHI.IDPN ---
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 Vital Signs Date Time Temp Pulse Resp B/P (MAP) Pulse Ox O2 Delivery O2 Flow Rate FiO2 07/29/17 20:03 100 35 07/29/17 18:00 55 07/29/17 16:00 40 07/29/17 16:00 47 07/29/17 16:00 98.1 47 16 105/51 (69) 100 07/29/17 15:46 100 35 07/29/17 14:00 50 07/29/17 12:00 40 07/29/17 12:00 56 07/29/17 12:00 98.1 56 18 129/59 (82) 100 07/29/17 11:48 100 35 07/29/17 10:00 55 07/29/17 09:10 100 40 07/29/17 08:00 40 07/29/17 08:00 98.6 58 18 125/59 (81) 100 07/29/17 08:00 58 07/29/17 06:00 53 07/29/17 04:14 100 40 07/29/17 04:00 54 07/29/17 04:00 97.7 54 131/61 (84) 99 07/29/17 04:00 40 07/29/17 02:00 50 07/29/17 00:27 99 40 07/29/17 00:00 95.7 50 121/66 (84) 99 07/29/17 00:00 50 07/29/17 00:00 40 07/28/17 22:00 51 07/28/17 22:00 95.2 51 133/60 (84) 98 07/28/17 20:49 99 40 07/29/17 07/29/17 07/30/17 15:00 23:00 07:00 Intake Total 300 ml 290 ml Output Total 5650 ml Balance 300 ml -5360 ml IV Total 300 ml 170 ml Tube Irrigant 120 ml Output Urine Total 450 ml Stool Total 200 ml Hemodialysis 5000 ml . Laboratory Tests Test 07/28/17 05:49 White Blood Count 6.7 TH/MM3 Red Blood Count 2.95 MIL/MM3 Hemoglobin 8.2 GM/DL Hematocrit 25.9 % Mean Corpuscular Volume 87.8 FL Mean Corpuscular Hemoglobin 28.0 PG Mean Corpuscular Hemoglobin Concent 31.9 % Red Cell Distribution Width 15.7 % Platelet Count 182 TH/MM3 Mean Platelet Volume 7.3 FL Laboratory Tests Test 07/28/17 05:49 07/29/17 07:56 Blood Urea Nitrogen 36 MG/DL 37 MG/DL Creatinine 2.50 MG/DL 2.63 MG/DL Random Glucose 77 MG/DL 77 MG/DL Calcium Level 8.6 MG/DL 8.4 MG/DL Sodium Level 138 MEQ/L 137 MEQ/L Potassium Level 3.4 MEQ/L 3.5 MEQ/L Chloride Level 101 MEQ/L 101 MEQ/L Carbon Dioxide Level 29.4 MEQ/L 24.6 MEQ/L Anion Gap 8 MEQ/L 11 MEQ/L Estimat Glomerular Filtration Rate 20 ML/MIN 19 ML/MIN Albumin 2.6 GM/DL Phosphorus Level 3.6 MG/DL Imaging Last Impressions Head CT 07/27/17 0000 Signed Impressions: Service Date/Time: Friday, July 28, 2017 04:59 - CONCLUSION: No acute intracranial findings To Coates MD Abdomen X-Ray 07/27/17 0000 Signed Impressions: Service Date/Time: July 10:42 - CONCLUSION: Normal examination. Cam Cristina MD Chest X-Ray 07/26/17 0600 Signed Impressions: Service Date/Time: Wednesday, July 26, 2017 03:13 - CONCLUSION: Cardiomegaly with diffuse increased opacity likely related to CHF. Bilateral effusions can be considered. To Leija MD Thoracentesis Ultrasound 07/25/17 0000 Signed Impressions: Service Date/Time: Tuesday, July 25, 2017 12:49 - CONCLUSION: Uncomplicated ultrasound guided thoracentesis. Varghese Baker MD Chest Ultrasound 07/24/17 1600 Signed Impressions: Service Date/Time: Monday, July 24, 2017 17:18 - CONCLUSION: There is a moderate-sized right pleural effusion confirmed by ultrasound Rosalino Morgan MD Upper Extremity Ultrasound 07/23/17 0000 Signed Impressions: Service Date/Time: Sunday, July 23, 2017 07:48 - CONCLUSION: No evidence of deep venous thrombosis within the upper extremities. Florin Michelle MD Catheter Placement X-Ray 07/21/17 0000 Signed Impressions: Service Date/Time: Friday, July 21, 2017 14:47 - CONCLUSION: Uncomplicated PermaCath placement as above. Idris Diaz MD Abdomen/Pelvis CT 07/19/17 0000 Signed Impressions: Service Date/Time: Wednesday, July 19, 2017 16:25 - CONCLUSION: 1. Status post right nephrectomy with no acute findings in the right renal fossa. 2. New bibasilar consolidating infiltrate and small bilateral effusions. 3. Anasarca 4. 3 cm left renal mass; unchanged. 5. Status post cholecystectomy. Schuyler Saucedo MD Physical Exam CONSTITUTIONAL/GENERAL: This is a morbidly obese patient, in no apparent distress. Intubated TUBES/LINES/DRAINS: SKIN: No jaundice, rashes, or lesions. Skin temperature appropriate. Not diaphoretic. ENT: Hearing grossly normal. Nose without bleeding or purulent drainage. Throat without visible erythema, exudates, masses, or lesions. CARDIOVASCULAR: Regular rate and rhythm without murmurs, gallops, or rubs. No JVD. Peripheral pulses symmetric. RESPIRATORY/CHEST: Symmetric, unlabored respirations. Clear to auscultation. Breath sounds equal bilaterally. No wheezes, rales, or rhonchi. GASTROINTESTINAL: Abdomen soft, non-tender, nondistended Its markely obese and degree of obesty precludes examination of organomegaly, or palpable masses. No guarding. Bowel sounds present. : mcintosh in place with more and clearer urine MUSCULOSKELETAL: Extremities without clubbing, cyanosis, + diffuse 3+ edema. No joint tenderness or effusion noted. NEUROLOGICAL: unrtesponsive PSYCHIATRIC:unable to assess Assessment & Plan Remarks PNA ARF/CKD, transpalnt failure starte on HD Permacath placed 07/21 Immunosuppresed Renal allograft Renal ca sp R nephrectomy 2 mos ago Acute hypercapnic resp failure dc zosyn ankit jarvisthrGeena Mendez MD Jul 29, 2017 20:27
[2017-07-29] MEDS: PRAVASTATIN SOD 40 MG TAB PO SCH (20:31)
[2017-07-30] VITALS (29 sets, daily range): BP systolic 120–155; BP diastolic 60–75; PULSE 53–71; RESP 17; O2SAT 96–100
--- NOTE | 2017-07-30 01:30 | RADRPT ---
EXAM DATE/TIME: 07/30/2017 00:53 [facility] COMPARISON: CT ABDOMEN & PELVIS W/O CONTRAST, July 19, 2017, 16:25. INDICATIONS : Excessive tube feeding residuals; possible obstruction. ORAL CONTRAST: No oral contrast ingested. RADIATION DOSE: 38.16 CTDIvol (mGy) ; Patient body habitus MEDICAL HISTORY : Cardiovascular disease. Renal failure, chronic. Hypertension. SURGICAL HISTORY : Cholecystectomy. Neprectomy / kidney transplant ENCOUNTER: Initial ACUITY: 1 day PAIN SCALE: Non-responsive LOCATION: abdomen TECHNIQUE: Volumetric scanning of the abdomen and pelvis was performed. Using automated exposure control and ad justment of the mA and/or kV according to patient size, radiation dose was kept as low as reasonably achievable to obtain optimal diagnostic quality images. DICOM format image data is available electro nically for review and comparison. FINDINGS: LOWER LUNGS: Chronic consolidative change in effusions in the lung bases. LIVER: Homogeneous density without lesion. There is no dilation of the biliary tree. Gallbladder surgically absent.. SPLEEN: Normal size without lesion. PANCREAS: Within normal limits. KIDNEYS: Right kidney absent or severely atrophic. Left kidney atrophic with multiple cysts. Right pelvic kemp splant kidney with stable medial cortical cyst. No hydronephrosis. No peritransplant fluid collection . ADRENAL GLANDS: Within normal limits. VASCULAR: There is no aortic aneurysm. BOWEL/MESENTERY: Nasogastric tube in the stomach which is nondilated. Small and large bowel are nondilated and focally unremarkable. Rectal tube is in place. ABDOMINAL WALL: Anasarca. Stable fluid containing umbilical hernia. RETROPERITONEUM: There is no lymphadenopathy. BLADDER: Decompressed with Grant catheter REPRODUCTIVE: Within normal limits. INGUINAL: There is no lymphadenopathy or hernia. MUSCULOSKELETAL: Within normal limits for patient age. CONCLUSION: No evidence of bowel obstruction To Coates MD on July 30, 2017 at 1:23 Board Certified Radiologist. This report was verified electronically.
[2017-07-30] MEDS: PROPOFOL 1000 MG/100 ML INJ 100 ML IV PRN ×8 (02:04→23:00)
[2017-07-30] MEDS: DEXTROSE 50% IN WATER 50 ML VIAL(D50) IV PUSH PRN ×3 (02:05→08:32)
[2017-07-30] MEDS: INSULIN ASPART SUPPLEMENTAL SCALE SQ SCH ×4 (06:00→18:00)
[2017-07-30] MEDS: HEPARIN SODIUM - SQ 10,000 UNITS/ML VIAL SQ SCH ×2 (06:11→14:00)
[2017-07-30] MEDS: hydrALAZINE HCL 25 MG TAB PO SCH ×2 (06:12→14:00)
[2017-07-30] MEDS: METOCLOPRAMIDE HCL 10 MG/2 ML VIAL IV PUSH SCH ×2 (06:12→18:32)
[2017-07-30] MEDS: LEVOTHYROXINE SODIUM 50 MCG TAB PO SCH (06:12)
--- NOTE | 2017-07-30 06:32 | RADRPT ---
EXAM DATE/TIME: 07/30/2017 04:01 [facility] COMPARISON: CHEST SINGLE AP, July 26, 2017, 3:13. INDICATIONS : Shortness of breath, possible pulmonary disease. MEDICAL HISTORY : Cardiovascular disease. Chronic obstructive pulmonary disease. Hypertension. Renal cell carcinoma SURGICAL HISTORY : Cholecystectomy. Nephrectomy, right. ENCOUNTER: Subsequent ACUITY: 1 week PAIN SCORE: Non-responsive. LOCATION: Bilateral chest FINDINGS: Endotracheal tube and right neck dialysis catheter remain in place. There has been interval complete collapse of the left lung. There is persistent perihilar and basilar parenchymal opacity on the right . CONCLUSION: Interval collapse of the left lung. To Coates MD on July 30, 2017 at 6:28 Board Certified Radiologist. This report was verified electronically.
--- NOTE | 2017-07-30 06:47 | HHI.CCPN ---
Subjective Remarks/Hospital Course I was asked to see patient this evening due to excessive somnolence. She was protecting her airway adequately but otherwise unresponsive except to loud voice or noxious stimulation. She was just started back on dialysis after a renal transplant failed. She has a past medical history of hypertension, hyperlipidemia, depression, morbid obesity, CKD status post renal transplant, renal cell carcinoma status post right nephrectomy, diabetes mellitus and sleep apnea. She presented to the ER 2 days ago with persistent vomiting despite home medication with Zofran and Phenergan. Patient also complains of generalized abdominal pain, worst in the epigastric region. She was discharged from the hospital on 07/13 where she was treated for acute on chronic kidney injury, generalized weakness and hyperkalemia. She is chronically on 2-3 L nasal cannula at home with a history of asthma. She denies any fever/chills. H&H 7.6 /23.8 which is approximately patient's baseline. BUN/creatinine 86/3.89, patient's creatinine 2.66 on 07/13. Chest x-ray showed bibasilar airspace disease with possible bilateral pleural effusions. CT of the abdomen/pelvis with new bibasilar consolidating infiltrate and 3 cm left renal mass which is unchanged from previous. Presently, her respiratory effort is satisfactory and she controls her airway. Major concern is for CO2 retention. Subjective 07/22: Currently orotracheally intubated. On low dose propofol drip at 10 mcg/ kg per minute. Arousable on the ventilator and appointments. Will initiate tube feeding today. 07/23: Afebrile. Patient received transfusion yesterday 1 unit of packed red blood cells hemoglobin stable this a.m.. Patient underwent hemodialysis yesterday approximately 4500 cc removed. Patient continues on sedation for ventilator synchrony. Chest x-ray appears to be worsening. CT brain revealed no abnormalities. 07/24: Afebrile. Chest x-ray showed complete near-complete opacification of the left lung, bronchoscopy planned. Patient noted to have pleural effusions right, ultrasound quantification of pleural effusion pending. Mucomyst initiated. 07/25: Patient's Hgb 6.1 this am, planned in one unit of PRBC. Patient noted large left effusion greater than 770 cc. Thoracentesis performed approximately 990 cc removed from left side. Chest x-ray pending post procedure. BAL performed yesterday, results pending. 07/26: Afebrile. JHONY globin stable as post transfusion yesterday. Patient noted to have high gastric residuals greater than 550 cc, Reglan initiated every 8 hours. IHD 4 L off yesterday. Chest x-ray continues to worsen. 07/27: Sedation vacation again performed today patient writhing around in bed not following commands, continues to appear altered. CT brain EEG ammonia level pending. Patient currently undergoing IHD with targeted to fluid removal of 4 L. KUB performed for persistent residuals no acute abnormality. 07/28: Neurologically the patient thrashing around on not following commands. CT performed negative, EEG negative. Patient noted to have high residuals, patient continues on Reglan 5 mg every 8 hours, and is having daily bowel movements . KUB does not reveal an ileus .GI has been consulted. 07/29: No acute changes overnight. The patient remains nothing by mouth secondary to high residuals. Consult with GI pending. CT of the abdomen and pelvis ordered. 07/30: CT of the abdomen and pelvis was negative no obstruction noted. The patient had a fecal containment device approximately 1 L out in 24 hours yesterday, however the patient is not tolerating tube feeds. Awaiting GI recommendations. The patient remains obtunded fentanyl infusion completely discontinued the patient remains on propofol for ventilator synchrony. Chest x- ray this a.m., left lung collapse appearance of mucous plugging emergency bronchoscopy , Mucomyst planned and possible chest tube placement depending on results. Begin PPN today Objective Vital Signs Date Time Temp Pulse Resp B/P (MAP) Pulse Ox O2 Delivery O2 Flow Rate FiO2 07/30/17 04:15 97 35 07/30/17 02:00 60 07/30/17 02:00 96.8 07/30/17 01:00 17 07/29/17 22:00 143/64 (90) Intake and Output 07/30/17 07/30/17 07/31/17 08:00 16:00 00:00 Intake Total 100 ml Output Total 1600 ml Balance -1500 ml Result Diagram: 07/28/17 0549 07/29/17 0756 Imaging Last Impressions Chest X-Ray 07/24/17 0600 Signed Impressions: Service Date/Time: Monday, July 24, 2017 04:01 - CONCLUSION: 1. Near- total opacification of the left chest likely related to diffuse atelectasis or consolidation. 2. Right consolidation or atelectasis especially at the base. Some degree of right effusion needs to be considered. To Leija MD Upper Extremity Ultrasound 07/23/17 0000 Signed Impressions: Service Date/Time: Sunday, July 23, 2017 07:48 - CONCLUSION: No evidence of deep venous thrombosis within the upper extremities. Florin Michelle MD Head CT 07/22/17 0000 Signed Impressions: Service Date/Time: Sunday, July 23, 2017 03:07 - CONCLUSION: No acute intracranial abnormality demonstrated. To Madera MD Catheter Placement X-Ray 07/21/17 0000 Signed Impressions: Service Date/Time: Friday, July 21, 2017 14:47 - CONCLUSION: Uncomplicated PermaCath placement as above. Idris Diaz MD Abdomen/Pelvis CT 07/19/17 0000 Signed Impressions: Service Date/Time: Wednesday, July 19, 2017 16:25 - CONCLUSION: 1. Status post right nephrectomy with no acute findings in the right renal fossa. 2. New bibasilar consolidating infiltrate and small bilateral effusions. 3. Anasarca 4. 3 cm left renal mass; unchanged. 5. Status post cholecystectomy. Schuyler Saucedo MD Last Impressions Chest X-Ray 07/23/17 0600 Signed Impressions: Service Date/Time: Sunday, July 23, 2017 03:39 - CONCLUSION: Worsening effusions and bibasilar consolidation. To Madera MD Head CT 07/22/17 0000 Signed Impressions: Service Date/Time: Sunday, July 23, 2017 03:07 - CONCLUSION: No acute intracranial abnormality demonstrated. To Madera MD Catheter Placement X-Ray 07/21/17 0000 Signed Impressions: Service Date/Time: Friday, July 21, 2017 14:47 - CONCLUSION: Uncomplicated PermaCath placement as above. Idris Diaz MD Abdomen/Pelvis CT 07/19/17 0000 Signed Impressions: Service Date/Time: Wednesday, July 19, 2017 16:25 - CONCLUSION: 1. Status post right nephrectomy with no acute findings in the right renal fossa. 2. New bibasilar consolidating infiltrate and small bilateral effusions. 3. Anasarca 4. 3 cm left renal mass; unchanged. 5. Status post cholecystectomy. Schuyler Saucedo MD Last Impressions Catheter Placement X-Ray 07/21/17 0000 Signed Impressions: Service Date/Time: Friday, July 21, 2017 14:47 - CONCLUSION: Uncomplicated PermaCath placement as above. Idris Diaz MD Chest X-Ray 07/19/17 0000 Signed Impressions: Service Date/Time: Wednesday, July 19, 2017 16:37 - CONCLUSION: Bibasilar airspace disease with possible bilateral effusions. Mild cardiomegaly. Schuyler Saucedo MD Abdomen/Pelvis CT 07/19/17 0000 Signed Impressions: Service Date/Time: Wednesday, July 19, 2017 16:25 - CONCLUSION: 1. Status post right nephrectomy with no acute findings in the right renal fossa. 2. New bibasilar consolidating infiltrate and small bilateral effusions. 3. Anasarca 4. 3 cm left renal mass; unchanged. 5. Status post cholecystectomy. Schuyler Saucedo MD Objective Remarks GENERAL: 56-year-old super morbidly obese female, resting in bed orotracheally intubated and sedated SKIN: Warm and dry. HEAD: Atraumatic. Normocephalic. EYES: Pupils 2 mm, equal round and reactive. Extraocular motions intact ENT: Throat without erythema. Endotracheal intubation NECK: Trachea midline. Supple, nontender, right IJ tunneled cuffed catheter in place for hemodialysis CARDIOVASCULAR: Bradycardic, RR. S1, S2 no S4. Without murmurs, clicks, gallops or rub. Unable to assess JVD secondary to body habitus RESPIRATORY:. Breath sounds equal bilaterally. No wheezes, rales, or rhonchi. Diminished throughout. GASTROINTESTINAL: Abdomen obese; soft, nontender, nondistended. Fixed mass in hernia right side, nontender. BS active. MUSCULOSKELETAL: 2+ peripheral edema left upper extremity, trace to 1+ right upper extremity chronic. Well perfused. NEUROLOGICAL: RASS -1. Cranial nerves II through XII appear grossly intact. Positive gag and corneal reflex. Withdraws to pain in all 4 extremities on sedation currently. Sedation vacation patient is moving extremities spontaneously does not follow any commands, deviant gaze A/P Assessment and Plan Neuro/Psych: Acute toxic metabolic encephalopathy Depression disorder NOS Altered mental status Currently on propofol for sedation/analgesia while intubated Fent infusion discontinued Goal of RASS -2 Continue daily sedation vacation Holding sertraline 200 mg by mouth daily for depression. While on linezolid. Resume when clinically indicated 07/27 Follow-up CT brain, EEG, ammonia level- negative CV: Hypertension Dyslipidemia Currently on amlodipine 10 mg daily, hydralazine 50 mg every 8 hours, HCTZ 25 mg daily and metoprolol 50 mg by mouth twice a day for hypertension. Currently on Pravachol 40 mg daily for dyslipidemia. NS IVF discontinued 07/24 Resp: Acute on chronic hypoxemic respiratory failure Chronic home O2 dependency at 3 L at home History of asthma PRVC 18/550/0.9/5/40 Ventilator bundle Albuterol/ipratropium aerosols every 4 hours with albuterol aerosols every 2 hours. Dyspnea Add budesonide 0.5/2 1 inhalation twice a day On fluticasone 44 g 2 puffs twice a day and salmeterol 50 g inhaled twice a day at home CXR 07/23 worsening effusions and bibasilar consolidation small right and moderate left pleural effusions 07/23 US guided marking of lungs 770cc on left, 276 on right 07/25 S/P right thoracentesis 990 cc removed ETT- Day 7 possible consideration for tracheostomy 07/30-chest x-ray-left lung collapse- differential possible mucus plugging versus pleural effusion versus pneumothorax 07/30-Planned bronchoscopy, Mucomyst GI: Hypoalbuminemia Tube feeding with Suplena goal 55 cc an hour, currently of 40 cc/hour on hold- elevated residuals, Reglan 5 mg every 8 hours initiated 07/28patient continues to not tolerate tube feeds high residuals noted. GI has been consulted Famotidine for GI prophylaxis Docusate sodium/senna 1 tablet twice a day, Lactulose 30 cc twice a day and Docusate suppository when necessary added for bowel regimen Dignashield in place greater than 1 L liquid stool output in the last 24hrs : Maintain Grant catheter Endo: Diabetes mellitus Hypothyroidism Currently on insulin detemir 5 units twice a day with Novulog sliding scale insulin every 6 hours to maintain euglycemia On detemir 50 units in a.m. 4 units at night at home along with insulin Aspart sliding scale insulin Continue levothyroxine 50 mcg by mouth daily for hypothyroidism. 07/23 TSH- WNL. Renal: History renal cell cancer 3 cm left renal mass Status post right nephrectomy May 2017 for renal cell carcinoma Failing autologous renal transplant on chronic immunosuppression Currently on cyclosporine 75 mg twice a day. Holding CellCept 500 mg twice a day. IHD schedule per nephrology. 4 L removed yesterday Urine output- 1L in the last 24hrs Monitor BMP Heme: Anemia of chronic kidney disease Continue iron sulfate 325 mg twice a day Serial hemoglobins daily. Maintain hemoglobin greater than 7 ID: Pneumonia 07/20 Blood cultures 2- NGTD CMV pending 07/22 Sputum- pending 07/22 Influenza -neg 07/22-Legionella, pneumococcal-pending Infectious disease following Zosyn and azithromycin discontinued FEN: Hyperphosphatemia Continue phosphate binder Replace electrolytes as clinically indicated MSK: Elevated BMI greater than 50 Charcot foot Weight loss encouraged. PT evaluate and treat Access - Utilize peripheral IV. Central line if indicated Prophylaxis - GI - famotidine -DVT- SCD/heparin subcutaneous Dispo: Level 3 Physician Vivian Goff MD Jul 30, 2017 06:47
[2017-07-30 07:08] LABS: AUTOMATED NEUTROPHIL # 3.8 TH/MM3 (1.8-7.7); BASOPHIL % 0.6 % (0.0-2.0); EOSINOPHIL # 0.1 TH/MM3 (0-0.4); EOSINOPHIL % 2.6 % (0.0-4.0); HEMATOCRIT 25.6 % (35.0-46.0); HEMOGLOBIN 8.3 GM/DL (11.6-15.3); LYMPH % 16.1 % (9.0-44.0); LYMPHOCYTE # 0.9 TH/MM3 (1.0-4.8); MEAN CELL VOLUME 87.5 FL (80.0-100.0); MEAN CORPUSCULAR HEMOGLOBIN 28.5 PG (27.0-34.0); MEAN CORPUSCULAR HGB CONC 32.5 % (32.0-36.0); MEAN PLATELET VOLUME 7.6 FL (7.0-11.0); MONO % 14.6 % (0.0-8.0); MONOCYTE # 0.8 TH/MM3 (0-0.9); NEUT % 66.1 % (16.0-70.0); PLATELET COUNT 177 TH/MM3 (150-450); RED BLOOD COUNT 2.92 MIL/MM3 (4.00-5.30); RED CELL DISTRIBUTION WIDTH 15.2 % (11.6-17.2); WHITE BLOOD COUNT 5.7 TH/MM3 (4.0-11.0)
[2017-07-30 07:22] LABS: BICARBONATE 28.9 MEQ/L (21.0-32.0); CALCIUM 8.3 MG/DL (8.5-10.1); CREATININE 2.18 MG/DL (0.50-1.00); MAGNESIUM 2.1 MG/DL (1.5-2.5)
[2017-07-30 07:23] LABS: PHOSPHORUS 3.6 MG/DL (2.5-4.9)
[2017-07-30 08:04] LABS: BANDS 1 % (0-6); LYMPHOCYTES 19 % (9-44); METAMYELOCYTES 1 % (0-1); MONOCYTES 13 % (0-8); MYELOCYTES 1 % (0-0); NEUTROPHIL # MANUAL DIFF 3.6 TH/MM3 (1.8-7.7); POLYS (SEG NEUTROPHILS) 61 % (16-70)
[2017-07-30 08:06] LABS: OVALOCYTES 1+ (NORMAL)
[2017-07-30] MEDS: CHLORHEXIDINE 0.12% (ORAL KIT) 15 ML CUP MT SCH ×2 (08:33→20:00)
[2017-07-30] MEDS: RESP: ALBUTEROL 2.5 MG/IPRATROPIUM 0.5 MG NEB (SCH) NEB ×3 (08:46→20:50)
[2017-07-30] MEDS: RESP: BUDESONIDE 0.5 MG/2 ML NEB NEB SCH ×2 (08:46→20:51)
[2017-07-30] MEDS: RESP: ACETYLCYSTEINE 10% 30 ML NEB NEB SCH ×3 (08:47→20:50)
[2017-07-30 08:56] LABS: AUTOMATED NEUTROPHIL # 4.5 TH/MM3 (1.8-7.7); BASOPHIL # 0.1 TH/MM3 (0-0.2); BASOPHIL % 1.1 % (0.0-2.0); EOSINOPHIL # 0.2 TH/MM3 (0-0.4); EOSINOPHIL % 2.9 % (0.0-4.0); HEMATOCRIT 27.4 % (35.0-46.0); HEMOGLOBIN 8.8 GM/DL (11.6-15.3); LYMPH % 14.8 % (9.0-44.0); MEAN CELL VOLUME 87.9 FL (80.0-100.0); MEAN CORPUSCULAR HEMOGLOBIN 28.3 PG (27.0-34.0); MEAN CORPUSCULAR HGB CONC 32.2 % (32.0-36.0); MEAN PLATELET VOLUME 7.4 FL (7.0-11.0); MONO % 12.5 % (0.0-8.0); MONOCYTE # 0.8 TH/MM3 (0-0.9); NEUT % 68.7 % (16.0-70.0); PLATELET COUNT 186 TH/MM3 (150-450); RED BLOOD COUNT 3.12 MIL/MM3 (4.00-5.30); RED CELL DISTRIBUTION WIDTH 15.5 % (11.6-17.2); WHITE BLOOD COUNT 6.6 TH/MM3 (4.0-11.0)
[2017-07-30] MEDS: INSULIN DETEMIR 100 UNITS/ML VIAL SQ SCH ×2 (09:00→21:00)
[2017-07-30] MEDS: SALMETEROL XINAFOATE 50 MCG DISKUS INH SCH ×2 (09:00→21:00)
--- NOTE | 2017-07-30 09:32 | RADRPT ---
EXAM DATE/TIME: 07/30/2017 07:43 [facility] COMPARISON: CHEST SINGLE AP, July 30, 2017, 4:01. INDICATIONS : Post Bronchoscopy MEDICAL HISTORY : Cardiovascular disease. Chronic obstructive pulmonary disease Hypertension. Renal cell carcinoma SURGICAL HISTORY : Cholecystectomy. Nephrectomy, right ENCOUNTER: Subsequent ACUITY: 1 week PAIN SCORE: Non-responsive. LOCATION: Bilateral chest FINDINGS: ET tube and nasogastric tube in good position. Better aeration left upper lobe on bronchoscopy. Per sistent consolidation left lower lobe. Mild interstitial edema Tip of dialysis catheters superior vena cava. CONCLUSION: Improvement on the left following bronchoscopy. No pneumothorax Sherif Diaz MD FACR on July 30, 2017 at 9:29 Board Certified Radiologist. This report was verified electronically.
[2017-07-30 09:58] LABS: BANDS 4 % (0-6); LYMPHOCYTES 12 % (9-44); METAMYELOCYTES 2 % (0-1); MONOCYTES 14 % (0-8); MYELOCYTES 2 % (0-0); NEUTROPHIL # MANUAL DIFF 4.8 TH/MM3 (1.8-7.7); POLYS (SEG NEUTROPHILS) 65 % (16-70)
[2017-07-30 09:59] LABS: OVALOCYTES 1+ (NORMAL)
[2017-07-30] MEDS: LACTULOSE SYRUP 20 GM/30 ML CUP PO SCH (11:12)
[2017-07-30] MEDS: CALCIUM/VITAMIN D 250 MG/125 U TAB PO SCH ×2 (11:13→18:00)
[2017-07-30] MEDS: predniSONE 5 MG TAB PO SCH (11:14)
[2017-07-30] MEDS: ASPIRIN EC 81 MG TABEC PO SCH (11:14)
[2017-07-30] MEDS: HYDROCHLOROTHIAZIDE 25 MG TAB PO SCH (11:15)
[2017-07-30] MEDS: FAMOTIDINE 20 MG TAB PO SCH (11:16)
[2017-07-30] MEDS: METOPROLOL TARTRATE 50 MG TAB PO SCH (11:16)
[2017-07-30] MEDS: amLODIPine BESYLATE 5 MG TAB PO SCH (11:16)
[2017-07-30] MEDS: SODIUM CHLORIDE 0.9% FLUSH 10 ML FLUSH IV FLUSH SCH ×2 (11:16→21:00)
--- NOTE | 2017-07-30 11:29 | PD.CONS ---
HPI History of Present Illness This is a 56 year old morbidly obese female with hx renal cell carcinoma s/p nephrectomy, CKD s/p renal transplant who presented originally with n/v/ abd pain. She subsequently developed respiratory failure required intubation and is now sedated on vent. GI has been consulted for high TF residuals. SHe has been having liquid stool, 1L overnight per nursing staff. No regurgitation of TF. On PPN now. (Karla Gomes) PFSH Past Medical History Hypertension Hyperlipidemia Depression Morbid obesity CKD status post renal transplant Renal cell carcinoma status post right nephrectomy Diabetes mellitus PATRICIA . Past Surgical History Right nephrectomy Kidney transplant Tonsillectomy Lumbar surgery Cholecystectomy . (Karla Gomes) Coded Allergies: adhesive (Unverified Allergy, Severe, SILK TAPE, 07/07/17) NSAIDS (Non-Steroidal Anti-Inflamma (Verified Adverse Reaction, Severe, Nausea/Vomiting, 07/07/17) Family History Patient has 1 son with autism. . Social History Occasional alcohol. Negative for tobacco/drugs. (Karla Gomes) Review of Systems ROS noncontributory (Karla Gomes) GI Exam Vitals I&O Vital Signs Date Time Temp Pulse Resp B/P (MAP) Pulse Ox O2 Delivery O2 Flow Rate FiO2 07/30/17 08:50 100 100 07/30/17 08:20 100 100 07/30/17 06:00 60 07/30/17 06:00 96.6 63 155/63 (93) 100 07/30/17 05:00 96.6 53 100 07/30/17 04:15 97 35 07/30/17 04:00 35 07/30/17 04:00 53 07/30/17 04:00 96.8 60 100 07/30/17 02:00 60 07/30/17 02:00 96.8 60 98 07/30/17 01:50 100 35 07/30/17 01:00 97.5 59 17 07/30/17 00:30 100 100 07/30/17 00:00 56 07/30/17 00:00 35 07/30/17 00:00 97.7 53 100 07/29/17 23:00 97.7 54 100 07/29/17 22:00 53 07/29/17 22:00 97.7 55 143/64 (90) 100 07/29/17 21:00 97.9 57 146/63 (90) 100 07/29/17 20:03 100 35 07/29/17 20:00 35 07/29/17 20:00 98.1 58 141/65 (90) 100 07/29/17 20:00 56 07/29/17 18:00 55 07/29/17 16:00 40 07/29/17 16:00 47 07/29/17 16:00 98.1 47 16 105/51 (69) 100 07/29/17 15:46 100 35 07/29/17 14:00 50 07/29/17 12:00 40 07/29/17 12:00 56 07/29/17 12:00 98.1 56 18 129/59 (82) 100 07/29/17 11:48 100 35 I/O 07/29/17 07/29/17 07/29/17 07/30/17 07/30/17 07/30/17 07:00 15:00 23:00 07:00 15:00 23:00 Intake Total 720 ml 300 ml 540 ml 473 ml Output Total 700 ml 5650 ml 1600 ml Balance 20 ml 300 ml -5110 ml -1127 ml IV Total 600 ml 300 ml 420 ml 373 ml Tube Irrigant 120 ml Other 120 ml 100 ml Output Urine Total 600 ml 450 ml 1000 ml Stool Total 100 ml 200 ml 600 ml Hemodialysis 5000 ml Imaging Last Impressions Chest X-Ray 07/30/17 0600 Signed Impressions: Service Date/Time: Sunday, July 30, 2017 04:01 - CONCLUSION: Interval collapse of the left lung. To Coates MD Abdomen/Pelvis CT 07/29/17 0000 Signed Impressions: Service Date/Time: Sunday, July 30, 2017 00:53 - CONCLUSION: No evidence of bowel obstruction To Coates MD Head CT 07/27/17 0000 Signed Impressions: Service Date/Time: Friday, July 28, 2017 04:59 - CONCLUSION: No acute intracranial findings To Coates MD Abdomen X-Ray 07/27/17 0000 Signed Impressions: Service Date/Time: July 10:42 - CONCLUSION: Normal examination. Cam Cristina MD Thoracentesis Ultrasound 07/25/17 0000 Signed Impressions: Service Date/Time: Tuesday, July 25, 2017 12:49 - CONCLUSION: Uncomplicated ultrasound guided thoracentesis. Varghese Baker MD Chest Ultrasound 07/24/17 1600 Signed Impressions: Service Date/Time: Monday, July 24, 2017 17:18 - CONCLUSION: There is a moderate-sized right pleural effusion confirmed by ultrasound Rosalino Morgan MD Upper Extremity Ultrasound 07/23/17 0000 Signed Impressions: Service Date/Time: Sunday, July 23, 2017 07:48 - CONCLUSION: No evidence of deep venous thrombosis within the upper extremities. Florin Michelle MD Catheter Placement X-Ray 07/21/17 0000 Signed Impressions: Service Date/Time: Friday, July 21, 2017 14:47 - CONCLUSION: Uncomplicated PermaCath placement as above. Idris Diaz MD Laboratory Test 07/30/17 05:02 07/30/17 08:26 White Blood Count 5.7 TH/MM3 6.6 TH/MM3 Red Blood Count 2.92 MIL/MM3 3.12 MIL/MM3 Hemoglobin 8.3 GM/DL 8.8 GM/DL Hematocrit 25.6 % 27.4 % Mean Corpuscular Volume 87.5 FL 87.9 FL Mean Corpuscular Hemoglobin 28.5 PG 28.3 PG Mean Corpuscular Hemoglobin Concent 32.5 % 32.2 % Red Cell Distribution Width 15.2 % 15.5 % Platelet Count 177 TH/MM3 186 TH/MM3 Mean Platelet Volume 7.6 FL 7.4 FL Neutrophils (%) (Auto) 66.1 % 68.7 % Lymphocytes (%) (Auto) 16.1 % 14.8 % Monocytes (%) (Auto) 14.6 % 12.5 % Eosinophils (%) (Auto) 2.6 % 2.9 % Basophils (%) (Auto) 0.6 % 1.1 % Neutrophils # (Auto) 3.8 TH/MM3 4.5 TH/MM3 Lymphocytes # (Auto) 0.9 TH/MM3 1.0 TH/MM3 Monocytes # (Auto) 0.8 TH/MM3 0.8 TH/MM3 Eosinophils # (Auto) 0.1 TH/MM3 0.2 TH/MM3 Basophils # (Auto) 0.0 TH/MM3 0.1 TH/MM3 CBC Comment AUTO DIFF AUTO DIFF Differential Total Cells Counted 100 100 Neutrophils % (Manual) 61 % 65 % Band Neutrophils % 1 % 4 % Lymphocytes % 19 % 12 % Monocytes % 13 % 14 % Eosinophils % 4 % 1 % Neutrophils # (Manual) 3.6 TH/MM3 4.8 TH/MM3 Metamyelocytes 1 % 2 % Myelocytes 1 % 2 % Differential Comment FINAL DIFF MANUAL FINAL DIFF MANUAL Platelet Estimate NORMAL NORMAL Platelet Morphology Comment NORMAL NORMAL Ovalocytes 1+ 1+ Blood Urea Nitrogen 28 MG/DL Creatinine 2.18 MG/DL Random Glucose 50 MG/DL Calcium Level 8.3 MG/DL Phosphorus Level 3.6 MG/DL Magnesium Level 2.1 MG/DL 2.2 MG/DL Sodium Level 140 MEQ/L Potassium Level 3.3 MEQ/L Chloride Level 101 MEQ/L Carbon Dioxide Level 28.9 MEQ/L Anion Gap 10 MEQ/L Estimat Glomerular Filtration Rate 23 ML/MIN Date/Time Source Procedure Growth Status 07/20/17 21:46 Blood Peripheral Aerobic Blood Culture - Final NO GROWTH IN 5 DAYS Complete 07/20/17 21:46 Blood Peripheral Anaerobic Blood Culture - Final NO GROWTH IN 5 DAYS Complete 07/25/17 13:19 Fluid Pleural Fluid Fungal Smear - Final NO FUNGAL ELEMENTS SEEN. Resulted 07/25/17 13:19 Fluid Pleural Fluid Fungal Culture Pending Resulted 07/24/17 16:20 Bronchial Washings Bronchial Gram Stain - Final Complete 07/24/17 16:20 Bronchial Washings Bronchial Bronchial Culture - Final NO GROWTH IN 48 HOURS. Complete 07/25/17 16:44 Urine Clean Catch Urine Culture - Final NO GROWTH IN 48 HOURS. Complete Physical Examination HEENT: normocephalic; atraumatic; no jaundice. OGT, intubated CHEST: diminished CARDIAC: Regular rate and rhythm with no murmur gallop or rubs. ABDOMEN: Soft, obese, BS faint EXTREMITIES: No clubbing, cyanosis, +BUE edema SKIN: pale; no rash; no jaundice. 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 CT 07/29 showed no obstruction. Last KUB 07/27 neg, will repeat on 5mg reglan PLAN - repeat KUB - continue reglan - continue PPN - further recs to follow This pt seen by myself and Dr Rosales and this note is written on his behalf (Karla Gomes) Physician Comments Seen and examined, plan as above, will hold TF for a day and restart at lower rate, will follow up with you. (Nimo Rosales MD) Karla Gomes Jul 30, 2017 11:29 Nimo Rosales MD Jul 30, 2017 13:47
--- NOTE | 2017-07-30 12:04 | HHI.NPPN ---
Subjective Renal Failure: Chronic, Acute Additional Remarks Patient remain on the vent. and sedated, clinically same. Review of Systems General General Remarks unable to evaluate Cardiovascular Cardiac: Edema Objective Data Data Vital Signs Date Time Temp Pulse Resp B/P (MAP) Pulse Ox O2 Delivery O2 Flow Rate FiO2 07/30/17 08:50 100 100 07/30/17 08:20 100 100 07/30/17 06:00 60 07/30/17 06:00 96.6 63 155/63 (93) 100 07/30/17 05:00 96.6 53 100 07/30/17 04:15 97 35 07/30/17 04:00 35 07/30/17 04:00 53 07/30/17 04:00 96.8 60 100 07/30/17 02:00 60 07/30/17 02:00 96.8 60 98 07/30/17 01:50 100 35 07/30/17 01:00 97.5 59 17 07/30/17 00:30 100 100 07/30/17 00:00 56 07/30/17 00:00 35 07/30/17 00:00 97.7 53 100 07/29/17 23:00 97.7 54 100 07/29/17 22:00 53 07/29/17 22:00 97.7 55 143/64 (90) 100 07/29/17 21:00 97.9 57 146/63 (90) 100 07/29/17 20:03 100 35 07/29/17 20:00 35 07/29/17 20:00 98.1 58 141/65 (90) 100 07/29/17 20:00 56 07/29/17 18:00 55 07/29/17 16:00 40 07/29/17 16:00 47 07/29/17 16:00 98.1 47 16 105/51 (69) 100 07/29/17 15:46 100 35 07/29/17 14:00 50 -: 07/30/17 0826 07/30/17 0502 Tubes & Lines: Perma-Cath, Grant Tubes & Lines Comment rectal bag Drip Comment Propofol, fentanyl Physical Exam General Appearance: Obese Appearance Remarks Intubated and sedated. Eyes Eye Exam: Pupils Equal Neck Neck Exam: Neck Supple Pulmonary Resp Exam: Crackles, Rhonchi, Decreased Bases, Diminished Breath Sounds Cardiology CV Exam: Regular, Normal Sinus Rhythm Gastrointestinal/Abdomen GI Exam: Soft, Non-Tender, Bowel Sounds Present Musculoskeletal MS Exam: Normal Tone, Unable to Ambulate Integumentary Skin Exam: Warm, Dry Extremeties Extremities Exam: Moderate Edema, Pitting Edema, Dependent Edema Neurologic Neuro Exam: Unresponsive, Sedated Assessment/Plan Assessment Summary: Anemia of CKD, Hypertension, Diabetes Mellitus Problem List: (1) EDITH (acute kidney injury) ICD Codes: N17.9 - Acute kidney failure, unspecified Status: Acute Plan: Has hx of renal transplant in 2000 and a hx of nephrectomy due to renal cell CA in 2017 Residual CKD, baseline appears to be 2.6-2.8 She may have suffered ATN or worsening chronic graft loss. She is oliguric but output may be improving. HD initiated on 07/21, currently on TTS HD currently. Monitor renal function daily. It remains to be seen if her renal function will recover. Creatinine not that far from baseline but urine output is marginal. Maintain Grant catheter in place for now. Creatinine is almost same, K is better. Avoid IVF, nephrotoxic agents. Vancomycin was stopped. Phosphorus is acceptable. Hold Calcium acetate and monitor renal panel. Resume if needed. HD done yesterday and 5 liters removed. I will ad Lasix. Follow the urine out put and BMP. HD as needed. Dr. Velez will follow from AM. (2) H/O kidney transplant ICD Codes: Z94.0 - Kidney transplant status Status: Acute Plan: Patient has a failing allograft Continue immunosuppression, she is on prednisone and cyclosporine. Cellcept has been discontinued due to hx of RCC. Monitor cyclosporine level, it is currently low. Dosage increased to 100 mg BID (3) Diabetes ICD Codes: E11.9 - Type 2 diabetes mellitus without complications Status: Chronic Plan: Monitor glucose, maintain 140-180 mg/dL this admission (4) HTN (hypertension) ICD Codes: I10 - Essential (primary) hypertension Status: Chronic Plan: Continue medications as ordered, titrate as needed (5) Pneumonia ICD Codes: J18.9 - Pneumonia, unspecified organism Plan: ID following, On Zosyn and Zithromax Chest xray reviewed, s/p left thoracentesis, 975 ml removed On CPAP trial. May require trach soon. Continue vent bundle. Plan patient was seen and examined. Agree with above assessment and plan. Monitor urine output. Dialysis likely tomorrow. Problem Qualifiers (1) Diabetes: Becky Angeles MD Jul 30, 2017 12:04
[2017-07-30] MEDS: FERROUS SULFATE 325 MG (65 MG ELEMENTAL IRON) TAB PO SCH ×2 (12:27→18:31)
--- NOTE | 2017-07-30 14:04 | RADRPT ---
EXAM DATE/TIME: 07/30/2017 13:16 [facility] COMPARISON: ABDOMEN KUB ONLY, July 27, 2017, 10:42. INDICATIONS : Abdominal distention, concern for ileus. MEDICAL HISTORY : Cardiovascular disease. Chronic obstructive pulmonary disease. Hypertension. Renal cell carcinoma. SURGICAL HISTORY : Cholecystectomy. Nephrectomy, right ENCOUNTER: Initial ACUITY: 1 day PAIN SCORE: Non-responsive. LOCATION: Bilateral abdomen. FINDINGS: Limited visualization due to the body habitus. I see no significant distention. Free air cannot be excluded.. CONCLUSION: Limited visualization secondary to body habitus otherwise negative Sherif Diaz MD FACR on July 30, 2017 at 14:02 Board Certified Radiologist. This report was verified electronically.
[2017-07-30] MEDS: FUROSEMIDE 20 MG/2 ML VIAL IV PUSH SCH (18:31)
[2017-07-30] MEDS: FAT EMULSION 20% INJ 250 ML (@10 mls/hr) IV SCH (20:00)
[2017-07-30] MEDS: CLINIMIX 4.25/5 (Cust.Renal Periph) 1000 mL- </= 42 mls/hr IV SCH ×8 (20:00)
[2017-07-31] VITALS (28 sets, daily range): BP systolic 101–172; BP diastolic 42–99; PULSE 62–83; RESP 18; TEMP 96–97.2; O2SAT 98–100
[2017-07-31] MEDS: METOPROLOL TARTRATE 50 MG TAB PO SCH ×3 (00:19→21:00)
[2017-07-31] MEDS: HEPARIN SODIUM - SQ 10,000 UNITS/ML VIAL SQ SCH ×4 (00:19→21:36)
[2017-07-31] MEDS: FAMOTIDINE 20 MG TAB PO SCH ×3 (00:19→21:36)
[2017-07-31] MEDS: LACTULOSE SYRUP 20 GM/30 ML CUP PO SCH ×3 (00:19→21:41)
[2017-07-31] MEDS: PRAVASTATIN SOD 40 MG TAB PO SCH ×2 (00:19→21:36)
[2017-07-31] MEDS: hydrALAZINE HCL 25 MG TAB PO SCH ×4 (00:19→21:41)
[2017-07-31] MEDS: METOCLOPRAMIDE HCL 10 MG/2 ML VIAL IV PUSH SCH ×4 (00:27→21:36)
[2017-07-31] MEDS: PROPOFOL 1000 MG/100 ML INJ 100 ML IV PRN (00:33)
[2017-07-31] MEDS: PROPOFOL 1000 MG/100 ML IV PRN ×12 (00:47→21:35)
[2017-07-31] MEDS: RESP: ACETYLCYSTEINE 10% 30 ML NEB NEB SCH ×4 (04:06→20:47)
[2017-07-31] MEDS: RESP: ALBUTEROL 2.5 MG/IPRATROPIUM 0.5 MG NEB (SCH) NEB ×4 (04:06→20:47)
[2017-07-31] MEDS: LEVOTHYROXINE SODIUM 50 MCG TAB PO SCH (05:36)
[2017-07-31] MEDS: INSULIN ASPART SUPPLEMENTAL SCALE SQ SCH ×4 (06:00→18:33)
[2017-07-31 06:52] LABS: AUTOMATED NEUTROPHIL # 4.5 TH/MM3 (1.8-7.7); BASOPHIL % 0.6 % (0.0-2.0); EOSINOPHIL # 0.2 TH/MM3 (0-0.4); EOSINOPHIL % 3.2 % (0.0-4.0); HEMATOCRIT 27.5 % (35.0-46.0); HEMOGLOBIN 8.9 GM/DL (11.6-15.3); LYMPH % 11.5 % (9.0-44.0); LYMPHOCYTE # 0.7 TH/MM3 (1.0-4.8); MEAN CORPUSCULAR HEMOGLOBIN 28.5 PG (27.0-34.0); MEAN CORPUSCULAR HGB CONC 32.4 % (32.0-36.0); MEAN PLATELET VOLUME 7.3 FL (7.0-11.0); MONO % 13.3 % (0.0-8.0); MONOCYTE # 0.8 TH/MM3 (0-0.9); NEUT % 71.4 % (16.0-70.0); PLATELET COUNT 164 TH/MM3 (150-450); RED BLOOD COUNT 3.12 MIL/MM3 (4.00-5.30); RED CELL DISTRIBUTION WIDTH 15.7 % (11.6-17.2); WHITE BLOOD COUNT 6.4 TH/MM3 (4.0-11.0)
[2017-07-31] MEDS: SALMETEROL XINAFOATE 50 MCG DISKUS INH SCH ×2 (09:00→21:00)
[2017-07-31] MEDS: predniSONE 5 MG TAB PO SCH (09:08)
[2017-07-31] MEDS: amLODIPine BESYLATE 5 MG TAB PO SCH (09:08)
[2017-07-31] MEDS: ASPIRIN EC 81 MG TABEC PO SCH (09:09)
[2017-07-31] MEDS: SODIUM CHLORIDE 0.9% FLUSH 10 ML FLUSH IV FLUSH SCH ×2 (09:09→21:42)
[2017-07-31] MEDS: CHLORHEXIDINE 0.12% (ORAL KIT) 15 ML CUP MT SCH ×2 (09:09→21:38)
[2017-07-31] MEDS: FUROSEMIDE 20 MG/2 ML VIAL IV PUSH SCH ×2 (09:09→18:16)
[2017-07-31] MEDS: HYDROCHLOROTHIAZIDE 25 MG TAB PO SCH (09:09)
[2017-07-31] MEDS: INSULIN DETEMIR 100 UNITS/ML VIAL SQ SCH ×3 (09:09→21:38)
[2017-07-31] MEDS: CALCIUM/VITAMIN D 250 MG/125 U TAB PO SCH ×2 (09:27→18:16)
[2017-07-31 09:58] LABS: BANDS 7 % (0-6); LYMPHOCYTES 21 % (9-44); METAMYELOCYTES 2 % (0-1); MONOCYTES 10 % (0-8); MYELOCYTES 1 % (0-0); NEUTROPHIL # MANUAL DIFF 4.3 TH/MM3 (1.8-7.7); POLYS (SEG NEUTROPHILS) 57 % (16-70)
[2017-07-31 09:59] LABS: ACANTHOCYTES OCC (NORMAL); OVALOCYTES 1+ (NORMAL)
[2017-07-31] MEDS: RESP: BUDESONIDE 0.5 MG/2 ML NEB NEB SCH ×2 (10:21→20:48)
--- NOTE | 2017-07-31 10:52 | HHI.NPPN ---
Subjective Renal Failure: Chronic, Acute Interval History remains intubated. Sedated. Excellent urine output. Review of Systems General General Remarks unable to evaluate Cardiovascular Cardiac: Edema Objective Data Data 07/31/17 08/01/17 19:00 07:00 Intake Total 200 ml Balance 200 ml IV Total 200 ml Vital Signs Date Time Temp Pulse Resp B/P (MAP) Pulse Ox O2 Delivery O2 Flow Rate FiO2 07/31/17 08:41 100 40 07/31/17 06:00 82 07/31/17 04:06 100 40 07/31/17 04:00 74 07/31/17 04:00 40 07/31/17 04:00 95.7 74 157/82 (107) 98 07/31/17 02:16 98 40 07/31/17 02:00 62 07/31/17 00:00 40 07/31/17 00:00 66 07/31/17 00:00 95.9 66 148/89 (108) 100 07/30/17 22:00 70 07/30/17 20:51 100 40 07/30/17 20:00 70 07/30/17 20:00 40 07/30/17 20:00 96.3 70 148/75 (99) 99 07/30/17 19:00 71 07/30/17 18:00 96.3 66 120/65 (83) 98 07/30/17 17:00 96.3 65 100 07/30/17 16:00 96.3 68 138/62 (87) 99 07/30/17 16:00 68 07/30/17 16:00 35 07/30/17 15:46 100 40 07/30/17 15:00 96.3 67 122/72 (89) 100 07/30/17 14:00 96.4 60 100 07/30/17 13:00 96.4 65 153/67 (95) 100 07/30/17 13:00 65 07/30/17 12:14 100 100 07/30/17 12:00 96.3 63 100 07/30/17 12:00 63 07/30/17 12:00 35 07/30/17 11:00 96.3 60 133/61 (85) 100 07/30/17 11:00 60 -: 07/31/17 0555 07/30/17 0502 Tubes & Lines: Perma-Cath, Grant Tubes & Lines Comment rectal bag Drip Comment Propofol, fentanyl Physical Exam General Appearance: Obese Eyes Eye Exam: Pupils Equal Neck Neck Exam: Neck Supple Pulmonary Resp Exam: Crackles, Rhonchi, Decreased Bases, Diminished Breath Sounds Cardiology CV Exam: Regular, Normal Sinus Rhythm Gastrointestinal/Abdomen GI Exam: Soft, Non-Tender, Bowel Sounds Present Musculoskeletal MS Exam: Normal Tone, Unable to Ambulate Integumentary Skin Exam: Warm, Dry Extremeties Extremities Exam: Moderate Edema, Pitting Edema, Dependent Edema Neurologic Neuro Exam: Unresponsive, Sedated Assessment/Plan Assessment Summary: Anemia of CKD, Hypertension, Diabetes Mellitus Problem List: (1) EDITH (acute kidney injury) ICD Codes: N17.9 - Acute kidney failure, unspecified Status: Acute Plan: Has hx of renal transplant in 2000 and a hx of nephrectomy due to renal cell CA in 2016 Residual CKD, baseline appears to be 2.6-2.8 She may have suffered ATN or worsening chronic graft loss. She is now nonoliguric. HD initiated on 07/21, currently on TTS HD currently. Monitor renal function daily. It remains to be seen if her renal function will recover. Repeat labs tomorrow, dialysis if necessary. (2) H/O kidney transplant ICD Codes: Z94.0 - Kidney transplant status Status: Acute Plan: Patient has a failing allograft Continue immunosuppression, she is on prednisone and cyclosporine. Cellcept has been discontinued due to hx of RCC. Monitor cyclosporine level, it is currently low. Dosage increased to 100 mg BID (3) Diabetes ICD Codes: E11.9 - Type 2 diabetes mellitus without complications Status: Chronic Plan: Monitor glucose, maintain 140-180 mg/dL this admission (4) HTN (hypertension) ICD Codes: I10 - Essential (primary) hypertension Status: Chronic Plan: Continue medications as ordered, titrate as needed (5) Pneumonia ICD Codes: J18.9 - Pneumonia, unspecified organism Plan: ID following, On Zosyn and Zithromax Chest xray reviewed, s/p left thoracentesis, 975 ml removed On CPAP trial. May require trach soon. Continue vent bundle. Problem Qualifiers (1) Diabetes: Antonio Velez MD Jul 31, 2017 10:52
[2017-07-31] MEDS ORDERED: POTASSIUM CHLOR 20 MEQ PREMIX 100 ML IV SCH (11:00)
[2017-07-31] MEDS: FERROUS SULFATE 325 MG (65 MG ELEMENTAL IRON) TAB PO SCH ×2 (12:00→17:00)
--- NOTE | 2017-07-31 13:04 | HHI.GIFU ---
Subjective Remarks Pt sedated on vent. Scant watery liquid stool in dignishield. (Karla Gomes) Objective Vitals I&O Vital Signs Date Time Temp Pulse Resp B/P (MAP) Pulse Ox O2 Delivery O2 Flow Rate FiO2 07/31/17 11:28 100 40 07/31/17 08:41 100 40 07/31/17 06:00 82 07/31/17 04:06 100 40 07/31/17 04:00 74 07/31/17 04:00 40 07/31/17 04:00 95.7 74 157/82 (107) 98 07/31/17 02:16 98 40 07/31/17 02:00 62 07/31/17 00:00 40 07/31/17 00:00 66 07/31/17 00:00 95.9 66 148/89 (108) 100 07/30/17 22:00 70 07/30/17 20:51 100 40 07/30/17 20:00 70 07/30/17 20:00 40 07/30/17 20:00 96.3 70 148/75 (99) 99 07/30/17 19:00 71 07/30/17 18:00 96.3 66 120/65 (83) 98 07/30/17 17:00 96.3 65 100 07/30/17 16:00 96.3 68 138/62 (87) 99 07/30/17 16:00 68 07/30/17 16:00 35 07/30/17 15:46 100 40 07/30/17 15:00 96.3 67 122/72 (89) 100 07/30/17 14:00 96.4 60 100 I/O 07/30/17 07/30/17 07/30/17 07/31/17 07/31/17 07/31/17 07:00 15:00 23:00 07:00 15:00 23:00 Intake Total 473 ml 420 ml 480 ml 300 ml Output Total 1600 ml 1400 ml 2250 ml Balance -1127 ml -980 ml -1770 ml 300 ml IV Total 373 ml 300 ml 300 ml 300 ml Tube Irrigant 0 ml 0 ml Other 100 ml 120 ml 180 ml Output Urine Total 1000 ml 1300 ml 2000 ml Stool Total 600 ml 100 ml 250 ml Laboratory Laboratory Tests Test 07/31/17 05:55 White Blood Count 6.4 Red Blood Count 3.12 Hemoglobin 8.9 Hematocrit 27.5 Mean Corpuscular Volume 88.0 Mean Corpuscular Hemoglobin 28.5 Mean Corpuscular Hemoglobin Concent 32.4 Red Cell Distribution Width 15.7 Platelet Count 164 Mean Platelet Volume 7.3 Neutrophils (%) (Auto) 71.4 Lymphocytes (%) (Auto) 11.5 Monocytes (%) (Auto) 13.3 Eosinophils (%) (Auto) 3.2 Basophils (%) (Auto) 0.6 Neutrophils # (Auto) 4.5 Lymphocytes # (Auto) 0.7 Monocytes # (Auto) 0.8 Eosinophils # (Auto) 0.2 Basophils # (Auto) 0.0 CBC Comment AUTO DIFF Differential Total Cells Counted 100 Neutrophils % (Manual) 57 Band Neutrophils % 7 Lymphocytes % 21 Monocytes % 10 Eosinophils % 2 Neutrophils # (Manual) 4.3 Metamyelocytes 2 Myelocytes 1 Differential Comment FINAL DIFF MANUAL Platelet Estimate NORMAL Platelet Morphology Comment NORMAL Ovalocytes 1+ Acanthocytes OCC Magnesium Level 2.1 Date/Time Source Procedure Growth Status 07/20/17 21:46 Blood Peripheral Aerobic Blood Culture - Final NO GROWTH IN 5 DAYS Complete 07/20/17 21:46 Blood Peripheral Anaerobic Blood Culture - Final NO GROWTH IN 5 DAYS Complete 07/25/17 13:19 Fluid Pleural Fluid Fungal Smear - Final NO FUNGAL ELEMENTS SEEN. Resulted 07/25/17 13:19 Fluid Pleural Fluid Fungal Culture Pending Resulted 07/24/17 16:20 Bronchial Washings Bronchial Gram Stain - Final Complete 07/24/17 16:20 Bronchial Washings Bronchial Bronchial Culture - Final NO GROWTH IN 48 HOURS. Complete 07/25/17 16:44 Urine Clean Catch Urine Culture - Final NO GROWTH IN 48 HOURS. Complete Imaging Last Impressions Chest X-Ray 07/30/17 0600 Signed Impressions: Service Date/Time: Sunday, July 30, 2017 04:01 - CONCLUSION: Interval collapse of the left lung. To Coates MD Abdomen X-Ray 07/30/17 0000 Signed Impressions: Service Date/Time: Sunday, July 30, 2017 13:16 - CONCLUSION: Limited visualization secondary to body habitus otherwise negative Sherif Diaz MD FACR Abdomen/Pelvis CT 07/29/17 0000 Signed Impressions: Service Date/Time: Sunday, July 30, 2017 00:53 - CONCLUSION: No evidence of bowel obstruction To Coates MD Head CT 07/27/17 0000 Signed Impressions: Service Date/Time: Friday, July 28, 2017 04:59 - CONCLUSION: No acute intracranial findings To Coates MD Thoracentesis Ultrasound 07/25/17 0000 Signed Impressions: Service Date/Time: Tuesday, July 25, 2017 12:49 - CONCLUSION: Uncomplicated ultrasound guided thoracentesis. Varghese Baker MD Chest Ultrasound 07/24/17 1600 Signed Impressions: Service Date/Time: Monday, July 24, 2017 17:18 - CONCLUSION: There is a moderate-sized right pleural effusion confirmed by ultrasound Rosalino Morgan MD Upper Extremity Ultrasound 07/23/17 0000 Signed Impressions: Service Date/Time: Sunday, July 23, 2017 07:48 - CONCLUSION: No evidence of deep venous thrombosis within the upper extremities. Florin Michelle MD Catheter Placement X-Ray 07/21/17 0000 Signed Impressions: Service Date/Time: Friday, July 21, 2017 14:47 - CONCLUSION: Uncomplicated PermaCath placement as above. Idris Diaz MD Physical Exam HEENT: normocephalic; atraumatic; no jaundice. intubated, OGT CHEST: diminished CARDIAC: RRR ABDOMEN: Soft, morbidly obese, no hepatosplenomegaly; BS faint/extremely difficult to auscultate EXTREMITIES: No clubbing, cyanosis, +BUE edema SKIN: Normal; no rash; no jaundice. 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 (Karla Gomes) Assessment and Plan Plan ASSESSMENT - high residuals TF - no vomiting or regurgitating. CT 07/29 showed no obstruction. KUBs neg but limited d/t body habitus, as is abd exam, abd extremely obese. scant output OGT per RN, scant watery stool dignishield. on PPN. on 5mg reglan PLAN - start trickle feeds, 10ml/hr - continue reglan - continue PPN - further recs to follow This pt seen by myself and Dr Rosales and this note is written on his behalf (Karla Gomes) Physician Comments Seen and examined, plan as above. (Nimo Rosales MD) Karla Gomes Jul 31, 2017 13:04 Nimo Rosales MD Jul 31, 2017 13:43
--- NOTE | 2017-07-31 18:36 | HHI.CCPN ---
Subjective Remarks/Hospital Course I was asked to see patient this evening due to excessive somnolence. She was protecting her airway adequately but otherwise unresponsive except to loud voice or noxious stimulation. She was just started back on dialysis after a renal transplant failed. She has a past medical history of hypertension, hyperlipidemia, depression, morbid obesity, CKD status post renal transplant, renal cell carcinoma status post right nephrectomy, diabetes mellitus and sleep apnea. She presented to the ER 2 days ago with persistent vomiting despite home medication with Zofran and Phenergan. Patient also complains of generalized abdominal pain, worst in the epigastric region. She was discharged from the hospital on 07/13 where she was treated for acute on chronic kidney injury, generalized weakness and hyperkalemia. She is chronically on 2-3 L nasal cannula at home with a history of asthma. She denies any fever/chills. H&H 7.6 /23.8 which is approximately patient's baseline. BUN/creatinine 86/3.89, patient's creatinine 2.66 on 07/13. Chest x-ray showed bibasilar airspace disease with possible bilateral pleural effusions. CT of the abdomen/pelvis with new bibasilar consolidating infiltrate and 3 cm left renal mass which is unchanged from previous. Presently, her respiratory effort is satisfactory and she controls her airway. Major concern is for CO2 retention. Subjective 07/22: Currently orotracheally intubated. On low dose propofol drip at 10 mcg/ kg per minute. Arousable on the ventilator and appointments. Will initiate tube feeding today. 07/23: Afebrile. Patient received transfusion yesterday 1 unit of packed red blood cells hemoglobin stable this a.m.. Patient underwent hemodialysis yesterday approximately 4500 cc removed. Patient continues on sedation for ventilator synchrony. Chest x-ray appears to be worsening. CT brain revealed no abnormalities. 07/24: Afebrile. Chest x-ray showed complete near-complete opacification of the left lung, bronchoscopy planned. Patient noted to have pleural effusions right, ultrasound quantification of pleural effusion pending. Mucomyst initiated. 07/25: Patient's Hgb 6.1 this am, planned in one unit of PRBC. Patient noted large left effusion greater than 770 cc. Thoracentesis performed approximately 990 cc removed from left side. Chest x-ray pending post procedure. BAL performed yesterday, results pending. 07/26: Afebrile. JHONY globin stable as post transfusion yesterday. Patient noted to have high gastric residuals greater than 550 cc, Reglan initiated every 8 hours. IHD 4 L off yesterday. Chest x-ray continues to worsen. 07/27: Sedation vacation again performed today patient writhing around in bed not following commands, continues to appear altered. CT brain EEG ammonia level pending. Patient currently undergoing IHD with targeted to fluid removal of 4 L. KUB performed for persistent residuals no acute abnormality. 07/28: Neurologically the patient thrashing around on not following commands. CT performed negative, EEG negative. Patient noted to have high residuals, patient continues on Reglan 5 mg every 8 hours, and is having daily bowel movements . KUB does not reveal an ileus .GI has been consulted. 07/29: No acute changes overnight. The patient remains nothing by mouth secondary to high residuals. Consult with GI pending. CT of the abdomen and pelvis ordered. 07/30: CT of the abdomen and pelvis was negative no obstruction noted. The patient had a fecal containment device approximately 1 L out in 24 hours yesterday, however the patient is not tolerating tube feeds. Awaiting GI recommendations. The patient remains obtunded fentanyl infusion completely discontinued the patient remains on propofol for ventilator synchrony. Chest x- ray this a.m., left lung collapse appearance of mucous plugging emergency bronchoscopy , Mucomyst planned and possible chest tube placement depending on results. Begin PPN today 07/31: No acute events overnight. Daily sedation vacation, patient not responding, opens eyes spontaneously moves extremities spontaneously, thrashing around does not follow any commands. Palliative care has been consulted and is in discussions with regarding definition of goals of care. The patient underwent bronchoscopy for mucous plugging yesterday the patient has maintain oxygenation without any compromise throughout the day. Am improvement noted on chest x-ray post from the patient continues on Mucomyst for 2 additional days dosing. Objective Vital Signs Date Time Temp Pulse Resp B/P (MAP) Pulse Ox O2 Delivery O2 Flow Rate FiO2 07/31/17 17:00 97.0 74 153/99 (117) 100 07/31/17 16:00 40 07/31/17 16:00 18 Intake and Output 07/31/17 07/31/17 08/01/17 08:00 16:00 00:00 Intake Total 580 ml 400 ml 1223 ml Output Total 2250 ml 400 ml Balance -1670 ml 400 ml 823 ml Result Diagram: 07/31/17 0555 07/30/17 0502 Imaging Last Impressions Chest X-Ray 07/24/17 0600 Signed Impressions: Service Date/Time: Monday, July 24, 2017 04:01 - CONCLUSION: 1. Near- total opacification of the left chest likely related to diffuse atelectasis or consolidation. 2. Right consolidation or atelectasis especially at the base. Some degree of right effusion needs to be considered. To Leija MD Upper Extremity Ultrasound 07/23/17 0000 Signed Impressions: Service Date/Time: Sunday, July 23, 2017 07:48 - CONCLUSION: No evidence of deep venous thrombosis within the upper extremities. Florin Michelle MD Head CT 07/22/17 0000 Signed Impressions: Service Date/Time: Sunday, July 23, 2017 03:07 - CONCLUSION: No acute intracranial abnormality demonstrated. To Madera MD Catheter Placement X-Ray 07/21/17 0000 Signed Impressions: Service Date/Time: Friday, July 21, 2017 14:47 - CONCLUSION: Uncomplicated PermaCath placement as above. Irdis Diaz MD Abdomen/Pelvis CT 07/19/17 0000 Signed Impressions: Service Date/Time: Wednesday, July 19, 2017 16:25 - CONCLUSION: 1. Status post right nephrectomy with no acute findings in the right renal fossa. 2. New bibasilar consolidating infiltrate and small bilateral effusions. 3. Anasarca 4. 3 cm left renal mass; unchanged. 5. Status post cholecystectomy. Schuyler Saucedo MD Last Impressions Chest X-Ray 07/23/17 0600 Signed Impressions: Service Date/Time: Sunday, July 23, 2017 03:39 - CONCLUSION: Worsening effusions and bibasilar consolidation. To Madera MD Head CT 07/22/17 0000 Signed Impressions: Service Date/Time: Sunday, July 23, 2017 03:07 - CONCLUSION: No acute intracranial abnormality demonstrated. To Madera MD Catheter Placement X-Ray 07/21/17 0000 Signed Impressions: Service Date/Time: Friday, July 21, 2017 14:47 - CONCLUSION: Uncomplicated PermaCath placement as above. Idris Diaz MD Abdomen/Pelvis CT 07/19/17 0000 Signed Impressions: Service Date/Time: Wednesday, July 19, 2017 16:25 - CONCLUSION: 1. Status post right nephrectomy with no acute findings in the right renal fossa. 2. New bibasilar consolidating infiltrate and small bilateral effusions. 3. Anasarca 4. 3 cm left renal mass; unchanged. 5. Status post cholecystectomy. Schuyler Saucedo MD Last Impressions Catheter Placement X-Ray 07/21/17 0000 Signed Impressions: Service Date/Time: Friday, July 21, 2017 14:47 - CONCLUSION: Uncomplicated PermaCath placement as above. Idris Diaz MD Chest X-Ray 07/19/17 0000 Signed Impressions: Service Date/Time: Wednesday, July 19, 2017 16:37 - CONCLUSION: Bibasilar airspace disease with possible bilateral effusions. Mild cardiomegaly. Schuyler Saucedo MD Abdomen/Pelvis CT 07/19/17 0000 Signed Impressions: Service Date/Time: Wednesday, July 19, 2017 16:25 - CONCLUSION: 1. Status post right nephrectomy with no acute findings in the right renal fossa. 2. New bibasilar consolidating infiltrate and small bilateral effusions. 3. Anasarca 4. 3 cm left renal mass; unchanged. 5. Status post cholecystectomy. Schuyler Saucedo MD Objective Remarks GENERAL: 56-year-old super morbidly obese female, resting in bed orotracheally intubated and sedated SKIN: Warm and dry. HEAD: Atraumatic. Normocephalic. EYES: Pupils 2 mm, equal round and reactive. Extraocular motions intact ENT: Throat without erythema. Endotracheal intubation NECK: Trachea midline. Supple, nontender, right IJ tunneled cuffed catheter in place for hemodialysis CARDIOVASCULAR: Bradycardic, RR. S1, S2 no S4. Without murmurs, clicks, gallops or rub. Unable to assess JVD secondary to body habitus RESPIRATORY:. Breath sounds equal bilaterally. No wheezes, rales, or rhonchi. Diminished throughout. GASTROINTESTINAL: Abdomen obese; soft, nontender, nondistended. Fixed mass in hernia right side, nontender. BS active. MUSCULOSKELETAL: 2+ peripheral edema left upper extremity, trace to 1+ right upper extremity chronic. Well perfused. NEUROLOGICAL: RASS -1. Cranial nerves II through XII appear grossly intact. Positive gag and corneal reflex. Withdraws to pain in all 4 extremities on sedation currently. Sedation vacation patient is moving extremities spontaneously does not follow any commands, deviant gaze A/P Assessment and Plan Neuro/Psych: Acute toxic metabolic encephalopathy Depression disorder NOS Altered mental status Currently on propofol for sedation/analgesia while intubated Fent infusion discontinued Goal of RASS -2 Continue daily sedation vacation Holding sertraline 200 mg by mouth daily for depression. While on linezolid. Resume when clinically indicated 07/27 Follow-up CT brain, EEG, ammonia level- negative Consult neurology CV: Hypertension Dyslipidemia Currently on amlodipine 10 mg daily, hydralazine 50 mg every 8 hours, HCTZ 25 mg daily and metoprolol 50 mg by mouth twice a day for hypertension. Currently on Pravachol 40 mg daily for dyslipidemia. NS IVF discontinued 07/24 Resp: Acute on chronic hypoxemic respiratory failure Chronic home O2 dependency at 3 L at home History of asthma PRVC 18/550/0.9/5/40 Ventilator bundle Albuterol/ipratropium aerosols every 4 hours with albuterol aerosols every 2 hours. Dyspnea Add budesonide 0.5/2 1 inhalation twice a day On fluticasone 44 g 2 puffs twice a day and salmeterol 50 g inhaled twice a day at home CXR 07/23 worsening effusions and bibasilar consolidation small right and moderate left pleural effusions 07/23 US guided marking of lungs 770cc on left, 276 on right 07/25 S/P right thoracentesis 990 cc removed ETT- Day 7 possible consideration for tracheostomy 07/30-chest x-ray-left lung collapse- differential possible mucus plugging versus pleural effusion versus pneumothorax 07/30-Planned bronchoscopy, Mucomyst GI: Hypoalbuminemia Tube feeding with Suplena goal 55 cc an hour, currently of 40 cc/hour on hold- elevated residuals, Reglan 5 mg every 8 hours initiated 07/28patient continues to not tolerate tube feeds high residuals noted. GI has been consulted Famotidine for GI prophylaxis Docusate sodium/senna 1 tablet twice a day, Lactulose 30 cc twice a day and Docusate suppository when necessary added for bowel regimen Dignashield in place greater than 1 L liquid stool output in the last 24hrs : Maintain Grant catheter Endo: Diabetes mellitus Hypothyroidism Currently on insulin detemir 5 units twice a day with Novulog sliding scale insulin every 6 hours to maintain euglycemia On detemir 50 units in a.m. 4 units at night at home along with insulin Aspart sliding scale insulin Continue levothyroxine 50 mcg by mouth daily for hypothyroidism. 07/23 TSH- WNL. Renal: History renal cell cancer 3 cm left renal mass Status post right nephrectomy May 2017 for renal cell carcinoma Failing autologous renal transplant on chronic immunosuppression Currently on cyclosporine 75 mg twice a day. Holding CellCept 500 mg twice a day. IHD schedule per nephrology. 4 L removed yesterday Urine output- 1L in the last 24hrs Monitor BMP Heme: Anemia of chronic kidney disease Continue iron sulfate 325 mg twice a day Serial hemoglobins daily. Maintain hemoglobin greater than 7 ID: Pneumonia 07/20 Blood cultures 2- NGTD CMV pending 07/22 Sputum- pending 07/22 Influenza -neg 07/22-Legionella, pneumococcal-pending Infectious disease following Zosyn and azithromycin discontinued FEN: Hyperphosphatemia Continue phosphate binder Replace electrolytes as clinically indicated MSK: Elevated BMI greater than 50 Charcot foot Weight loss encouraged. PT evaluate and treat Access - Utilize peripheral IV. Central line if indicated Prophylaxis - GI - famotidine -DVT- SCD/heparin subcutaneous Dispo: Level 3 Palliative care has been consulted to define goals of care with . Physician Vivian Goff MD Jul 31, 2017 18:36
[2017-07-31] MEDS: FAT EMULSION 20% INJ 250 ML (@10 mls/hr) IV SCH (21:35)
[2017-07-31] MEDS: CLINIMIX 4.25/5 (Cust.Renal Periph) 1000 mL- </= 42 mls/hr IV SCH ×8 (21:35)
[2017-07-31] MEDS: FERROUS SULFATE 300 MG /5ML UDC PO SCH (21:35)
[2017-08-01] VITALS (20 sets, daily range): BP systolic 99–143; BP diastolic 49–92; PULSE 61–76; RESP 18; TEMP 98–98.6; O2SAT 94–100
[2017-08-01] MEDS: PROPOFOL 1000 MG/100 ML IV PRN ×8 (00:27→23:41)
[2017-08-01] MEDS: RESP: ACETYLCYSTEINE 10% 30 ML NEB NEB SCH ×4 (04:00→21:10)
[2017-08-01] MEDS: RESP: ALBUTEROL 2.5 MG/IPRATROPIUM 0.5 MG NEB (SCH) NEB ×4 (04:32→21:10)
--- NOTE | 2017-08-01 04:44 | RADRPT ---
EXAM DATE/TIME: 08/01/2017 03:42 [facility] COMPARISON: CHEST SINGLE AP, July 30, 2017, 7:43. INDICATIONS : Shortness of breath. MEDICAL HISTORY : Cardiovascular disease. Chronic obstructive pulmonary disease Hypertension. Renal cell carcinoma SURGICAL HISTORY : Cholecystectomy. Nephrectomy, right ENCOUNTER: Subsequent ACUITY: 1 week PAIN SCORE: 0/10 LOCATION: Bilateral chest FINDINGS: There is worsening opacification of the left hemithorax since the prior exam. ET tube, and NG tube andrews ve not changed. Pulmonary edema bilaterally have not significantly changed. CONCLUSION: Worsening left hemithorax opacification may be due to consolidation or pleural effusion otherwise not significantly changed. Hawk Davis MD on August 01, 2017 at 4:41 Board Certified Radiologist. This report was verified electronically.
[2017-08-01 06:14] LABS: BASOPHIL % 0.7 % (0.0-2.0); EOSINOPHIL # 0.2 TH/MM3 (0-0.4); EOSINOPHIL % 3.7 % (0.0-4.0); HEMATOCRIT 26.5 % (35.0-46.0); HEMOGLOBIN 8.6 GM/DL (11.6-15.3); LYMPH % 11.1 % (9.0-44.0); LYMPHOCYTE # 0.7 TH/MM3 (1.0-4.8); MEAN CELL VOLUME 87.5 FL (80.0-100.0); MEAN CORPUSCULAR HEMOGLOBIN 28.4 PG (27.0-34.0); MEAN CORPUSCULAR HGB CONC 32.5 % (32.0-36.0); MEAN PLATELET VOLUME 7.7 FL (7.0-11.0); MONO % 8.2 % (0.0-8.0); MONOCYTE # 0.5 TH/MM3 (0-0.9); NEUT % 76.3 % (16.0-70.0); PLATELET COUNT 159 TH/MM3 (150-450); RED BLOOD COUNT 3.03 MIL/MM3 (4.00-5.30); RED CELL DISTRIBUTION WIDTH 15.7 % (11.6-17.2); WHITE BLOOD COUNT 6.6 TH/MM3 (4.0-11.0)
[2017-08-01] MEDS: LEVOTHYROXINE SODIUM 50 MCG TAB PO SCH (06:17)
[2017-08-01] MEDS: HEPARIN SODIUM - SQ 10,000 UNITS/ML VIAL SQ SCH ×3 (06:17→21:55)
[2017-08-01] MEDS: METOCLOPRAMIDE HCL 10 MG/2 ML VIAL IV PUSH SCH ×3 (06:17→21:54)
[2017-08-01] MEDS: hydrALAZINE HCL 25 MG TAB PO SCH ×3 (06:21→21:54)
[2017-08-01] MEDS: INSULIN ASPART SUPPLEMENTAL SCALE SQ SCH ×5 (06:22→23:43)
[2017-08-01 06:47] LABS: ALBUMIN 2.7 GM/DL (3.4-5.0); BICARBONATE 25.3 MEQ/L (21.0-32.0); CALCIUM 8.9 MG/DL (8.5-10.1); CREATININE 2.16 MG/DL (0.50-1.00)
[2017-08-01 06:48] LABS: PHOSPHORUS 5.1 MG/DL (2.5-4.9)
[2017-08-01] MEDS: RESP: BUDESONIDE 0.5 MG/2 ML NEB NEB SCH ×2 (08:27→21:10)
[2017-08-01] MEDS: SALMETEROL XINAFOATE 50 MCG DISKUS INH SCH ×2 (09:00→20:00)
[2017-08-01] MEDS: INSULIN DETEMIR 100 UNITS/ML VIAL SQ SCH ×2 (09:00→20:01)
[2017-08-01] MEDS: CALCIUM/VITAMIN D 250 MG/125 U TAB PO SCH ×2 (09:00→18:02)
[2017-08-01] MEDS: HYDROCHLOROTHIAZIDE 25 MG TAB PO SCH (09:01)
[2017-08-01] MEDS: amLODIPine BESYLATE 5 MG TAB PO SCH (09:01)
[2017-08-01] MEDS: LACTULOSE SYRUP 20 GM/30 ML CUP PO SCH ×2 (09:01→20:00)
[2017-08-01] MEDS: FAMOTIDINE 20 MG TAB PO SCH ×2 (09:01→20:00)
[2017-08-01] MEDS: FERROUS SULFATE 300 MG /5ML UDC PO SCH ×2 (09:01→20:00)
[2017-08-01] MEDS: SODIUM CHLORIDE 0.9% FLUSH 10 ML FLUSH IV FLUSH SCH ×2 (09:03→20:00)
[2017-08-01] MEDS: predniSONE 5 MG TAB PO SCH (09:03)
[2017-08-01] MEDS: FUROSEMIDE 20 MG/2 ML VIAL IV PUSH SCH ×2 (09:03→18:01)
[2017-08-01] MEDS: ASPIRIN EC 81 MG TABEC PO SCH (09:03)
[2017-08-01] MEDS: METOPROLOL TARTRATE 50 MG TAB PO SCH ×2 (09:04→20:00)
[2017-08-01] MEDS: CHLORHEXIDINE 0.12% (ORAL KIT) 15 ML CUP MT SCH ×2 (09:05→19:59)
--- NOTE | 2017-08-01 09:49 | MB ---
cc: RAUL STUBBS M.D. DATE OF CONSULTATION 08/01/2017 REASON FOR CONSULTATION Mental status change. HISTORY OF PRESENT ILLNESS This is a 56-year-old female who was admitted to the ICU with respiratory failure, intubated emergently, was deteriorating neurologically about a week ago with decreased mental status, has been minimally responsive. She has been on sedation but with sedation vacation. She does not follow commands. She does move symmetrically, but does not do anything purposeful. She has a history of renal transplant with transplant failure, receives hemodialysis. She has a history of renal cancer treated with nephrectomy. PERSONAL HISTORY 1. History of renal transplant. 2. History of renal cancer. 3. Diabetes type 2 4. Hypertension CURRENT MEDICATIONS 1. Propofol 2. Iron sulfate 3. Lasix 20 mg IV daily 4. Cyclosporin 100 mg b.i.d. 5. Reglan 5 mg IV q8h 6. Lactulose 30 cc b.i.d. 7. Pulmicort 8. Insulin 9. Labetalol as needed 10. Apresoline as needed for hypertension 11. Prednisone 5 mg daily 12. Heparin 8000 units IV with dialysis 13. Mannitol with dialysis 14. Gentamicin with dialysis 15. Zofran as needed 16. Benadryl as needed 17. Epogen 10,000 units IV with dialysis 18. Norvasc 10 mg daily 19. Aspirin 81 mg daily 20. HydroDIURIL 25 mg daily 21. Morphine as needed 22. Synthroid 50 mcg daily 23. Apresoline 50 mg q8h 24. Lopressor 50 mg b.i.d. 25. Serevent 26. Pravachol 40 mg daily NEUROLOGIC EXAMINATION Blood pressure 140/92, pulse is 89, temperature 98.1 degrees. Higher cortical function she is sedated, but not responsive. Pupils are 2 mm symmetrical reactive. Extraocular movements intact to doll's eyes maneuver. Neck is supple. On motor exam, no focal deficits are noted. Reflexes are symmetric. CT of the brain done and 07/27 no acute change present. LABORATORY DATA White count 6600, hemoglobin 8.6, hematocrit 26% platelet count 159,000. Sodium is 137, potassium 3.4, chloride 98, CO2 is 25.3. The BUN is 31, creatinine 2.16, GFR is 23, glucose 143, ammonia level is 24, AST is 10, ALT 16. IMPRESSION Probable metabolic encephalopathy. RECOMMENDATIONS We will obtain an MRI of the brain without contrast just to rule out infarction. EEG was obtained showing no seizure activity and was consistent with generalized slowing consistent with encephalopathy. MD GEORGINA Dukes/[place] /9:11 AM /9:27 AM
--- NOTE | 2017-08-01 11:05 | HHI.NPPN ---
Subjective Renal Failure: Chronic, Acute Interval History excellent urine output. Renal function is about the same. Will defer dialysis today. Review of Systems General General Remarks unable to evaluate Cardiovascular Cardiac: Edema Objective Data Data Vital Signs Date Time Temp Pulse Resp B/P (MAP) Pulse Ox O2 Delivery O2 Flow Rate FiO2 08/01/17 08:27 96 40 08/01/17 06:00 74 08/01/17 04:28 99 40 08/01/17 04:00 40 08/01/17 04:00 67 08/01/17 04:00 98.1 67 143/92 (109) 99 08/01/17 02:00 64 08/01/17 00:35 100 40 08/01/17 00:00 66 08/01/17 00:00 40 08/01/17 00:00 97.9 66 125/83 (97) 100 07/31/17 22:00 72 07/31/17 20:48 100 40 07/31/17 20:00 97.2 68 101/59 (73) 100 07/31/17 20:00 68 07/31/17 20:00 40 07/31/17 18:00 100 40 07/31/17 18:00 74 07/31/17 17:00 97.0 74 153/99 (117) 100 07/31/17 16:00 74 07/31/17 16:00 40 07/31/17 16:00 96.8 74 18 151/98 (115) 98 07/31/17 15:01 96.4 70 142/88 (106) 99 07/31/17 15:00 96.4 70 98 07/31/17 14:26 100 40 07/31/17 14:01 96.4 64 120/80 (93) 100 07/31/17 14:00 96.4 65 100 07/31/17 14:00 65 07/31/17 13:00 96.3 76 172/74 (106) 100 07/31/17 12:01 96.1 76 151/74 (99) 100 07/31/17 12:00 40 07/31/17 12:00 76 07/31/17 12:00 96.1 76 100 07/31/17 11:28 100 40 -: 08/01/17 0524 08/01/17 0524 Tubes & Lines: Perma-Cath, Grant Tubes & Lines Comment rectal bag Drip Comment Propofol, fentanyl Physical Exam General Appearance: Obese Eyes Eye Exam: Pupils Equal Neck Neck Exam: Neck Supple Pulmonary Resp Exam: Crackles, Rhonchi, Decreased Bases, Diminished Breath Sounds Cardiology CV Exam: Regular, Normal Sinus Rhythm Gastrointestinal/Abdomen GI Exam: Soft, Non-Tender, Bowel Sounds Present Musculoskeletal MS Exam: Normal Tone, Unable to Ambulate Integumentary Skin Exam: Warm, Dry Extremeties Extremities Exam: Moderate Edema, Pitting Edema, Dependent Edema Neurologic Neuro Exam: Unresponsive, Sedated Assessment/Plan Assessment Summary: Anemia of CKD, Hypertension, Diabetes Mellitus Problem List: (1) EDITH (acute kidney injury) ICD Codes: N17.9 - Acute kidney failure, unspecified Status: Acute Plan: Has hx of renal transplant in 2000 and a hx of nephrectomy due to renal cell CA in 2017 Has underlying stage IV CKD. She may have suffered ATN or worsening chronic graft loss. She is now nonoliguric. HD initiated on 07/21, currently on TTS HD currently. Will defer dialysis today. Monitor urine output and renal function. Avoid nephrotoxic agents. (2) H/O kidney transplant ICD Codes: Z94.0 - Kidney transplant status Status: Acute Plan: Patient has a failing allograft Continue immunosuppression, she is on prednisone and cyclosporine. Cellcept has been discontinued due to hx of RCC. Monitor cyclosporine level, it is currently low. Dosage increased to 100 mg BID (3) Diabetes ICD Codes: E11.9 - Type 2 diabetes mellitus without complications Status: Chronic Plan: Monitor glucose, maintain 140-180 mg/dL this admission (4) HTN (hypertension) ICD Codes: I10 - Essential (primary) hypertension Status: Chronic Plan: Continue medications as ordered, titrate as needed (5) Pneumonia ICD Codes: J18.9 - Pneumonia, unspecified organism Plan: ID following, Chest xray reviewed, s/p left thoracentesis, 975 ml removed Problem Qualifiers (1) Diabetes: Antonio Velez MD Aug 01, 2017 11:05
[2017-08-01] MEDS: POTASSIUM CHLOR 20 MEQ PREMIX 100 ML IV SCH ×2 (12:48→15:04)
--- NOTE | 2017-08-01 14:12 | HHI.HCPN ---
Reason for visit a. To assist with evaluation and management of symptoms including: Shortness of breath, pain, debility. b. To assist medical decision maker(s) with: better understanding of current medical conditions; weighing benefits/burdens of medical treatment options; making medical treatment decisions. . Subjective/Interval History Palliative care follow up for further clarifications of goals of care. Patient remained endotracheally intubated on mechanical ventilation. Unchanged neurological condition, not following commands or responding when off sedation. Neurology, Dr. Lerma consulted today. Pending MRI of the brain. EEG negative for seizure activity, revealing encephalopathy. Patient underwent therapeutic bronchoscopy for mucous plugging on 07/30. Currently on 40% FiO2, oxygen saturation in the high 90s. Patient remains on hemodialysis, most recent treatment 07/30 removing 5 L. Patient is afebrile, stable hemodynamically. Currently on propofol drip. Most recent chest x-ray 08/01 revealing worsening left hemithorax likely due to consolidation or pleural effusion. Telephone conversation with patient's Shantanu Deewy. Medical update provided. Reviewed clinical course and current medical management. Continued trach and PEG conversation given patient's unchanged neurological status. receptive to ongoing goals of care conversation as patient's clinical course continues to evolve, pending brain MRI. . Family/friend interactions See interval note. . Advance Directives Living Will: Never completed Health Care Surrogate: Never completed Durable Power of Metal Mixer: Never completed Advance Directive Specifics Health Care Surrogate(s): No advance directives completed. As per [place] statute, healthcare proxy decision-making falls to patient's Shantanu Dewey. . Significant change in goals: Full code. Aggressive management. . Objective Vital Signs Date Time Temp Pulse Resp B/P (MAP) Pulse Ox O2 Delivery O2 Flow Rate FiO2 08/01/17 13:01 99 40 08/01/17 12:00 61 08/01/17 12:00 98.3 61 99/62 (74) 97 08/01/17 10:00 66 08/01/17 08:27 96 40 08/01/17 08:00 98.0 66 121/49 (73) 97 08/01/17 08:00 66 08/01/17 06:00 74 08/01/17 04:28 99 40 08/01/17 04:00 40 08/01/17 04:00 67 08/01/17 04:00 98.1 67 143/92 (109) 99 08/01/17 02:00 64 08/01/17 00:35 100 40 08/01/17 00:00 66 08/01/17 00:00 40 08/01/17 00:00 97.9 66 125/83 (97) 100 07/31/17 22:00 72 07/31/17 20:48 100 40 07/31/17 20:00 97.2 68 101/59 (73) 100 07/31/17 20:00 68 07/31/17 20:00 40 07/31/17 18:00 100 40 07/31/17 18:00 74 07/31/17 17:00 97.0 74 153/99 (117) 100 07/31/17 16:00 74 07/31/17 16:00 40 07/31/17 16:00 96.8 74 18 151/98 (115) 98 07/31/17 15:01 96.4 70 142/88 (106) 99 07/31/17 15:00 96.4 70 98 07/31/17 14:26 100 40 07/31/17 14:01 96.4 64 120/80 (93) 100 07/31/17 14:00 96.4 65 100 07/31/17 14:00 65 Intake & Output 08/01/17 08/01/17 07:00 19:00 Intake Total 1770 ml Output Total 1800 ml Balance -30 ml IV Total 1650 ml Other 120 ml Output Urine Total 1600 ml Stool Total 200 ml Physical Exam CONSTITUTIONAL/GENERAL: This is a morbidly obese female resting in bed in no acute distress. Ill looking. TUBES/LINES/DRAINS: ETT, OG, Grant catheter, rectal tube, SCDs. SKIN: Very pale, greenish tint to skin. No jaundice, rashes, or lesions. Ecchymoses on upper extremities. No wounds seen anteriorly. Skin temperature appropriate. Not diaphoretic. HEAD: Atraumatic. Normocephalic. EYES: Pupils equal and round and reactive.No scleral icterus. No injection or drainage. Fundi not examined. ENT: Unable to evaluate hearing secondary to clinical condition. Nose without bleeding or purulent drainage. Moist oral mucosa. Endotracheally intubated. NECK: Trachea midline. Supple. CARDIOVASCULAR: Regular rate, bradycardic with heart rate in the 50s.. Week pedal pulses. RESPIRATORY/CHEST: Symmetric, unlabored respirations. Clear, diminished to auscultation. GASTROINTESTINAL: Abdomen obese, large, round. Areas of hardening noted underneath surgical scars. Bowel sounds present. Unable to asses for hepatomegaly secondary to body habitus. GENITOURINARY: Without palpable bladder distension. Grant catheter in place. MUSCULOSKELETAL: Extremities without clubbing, cyanosis. Anasarca. NEUROLOGICAL: Unresponsive to verbal or tactile stimuli. Sedated. PSYCHIATRIC: Unable to assess secondary to clinical condition. Appears calm. . Diagnostic Tests Laboratory Laboratory Tests Test 07/30/17 05:02 07/30/17 08:26 07/31/17 05:55 08/01/17 05:24 White Blood Count 5.7 TH/MM3 (4.0-11.0) 6.6 TH/MM3 (4.0-11.0) 6.4 TH/MM3 (4.0-11.0) 6.6 TH/MM3 (4.0-11.0) Red Blood Count 2.92 MIL/MM3 (4.00-5.30) 3.12 MIL/MM3 (4.00-5.30) 3.12 MIL/MM3 (4.00-5.30) 3.03 MIL/MM3 (4.00-5.30) Hemoglobin 8.3 GM/DL (11.6-15.3) 8.8 GM/DL (11.6-15.3) 8.9 GM/DL (11.6-15.3) 8.6 GM/DL (11.6-15.3) Hematocrit 25.6 % (35.0-46.0) 27.4 % (35.0-46.0) 27.5 % (35.0-46.0) 26.5 % (35.0-46.0) Mean Corpuscular Volume 87.5 FL (80.0-100.0) 87.9 FL (80.0-100.0) 88.0 FL (80.0-100.0) 87.5 FL (80.0-100.0) Mean Corpuscular Hemoglobin 28.5 PG (27.0-34.0) 28.3 PG (27.0-34.0) 28.5 PG (27.0-34.0) 28.4 PG (27.0-34.0) Mean Corpuscular Hemoglobin Concent 32.5 % (32.0-36.0) 32.2 % (32.0-36.0) 32.4 % (32.0-36.0) 32.5 % (32.0-36.0) Red Cell Distribution Width 15.2 % (11.6-17.2) 15.5 % (11.6-17.2) 15.7 % (11.6-17.2) 15.7 % (11.6-17.2) Platelet Count 177 TH/MM3 (150-450) 186 TH/MM3 (150-450) 164 TH/MM3 (150-450) 159 TH/MM3 (150-450) Mean Platelet Volume 7.6 FL (7.0-11.0) 7.4 FL (7.0-11.0) 7.3 FL (7.0-11.0) 7.7 FL (7.0-11.0) Neutrophils (%) (Auto) 66.1 % (16.0-70.0) 68.7 % (16.0-70.0) 71.4 % (16.0-70.0) 76.3 % (16.0-70.0) Lymphocytes (%) (Auto) 16.1 % (9.0-44.0) 14.8 % (9.0-44.0) 11.5 % (9.0-44.0) 11.1 % (9.0-44.0) Monocytes (%) (Auto) 14.6 % (0.0-8.0) 12.5 % (0.0-8.0) 13.3 % (0.0-8.0) 8.2 % (0.0-8.0) Eosinophils (%) (Auto) 2.6 % (0.0-4.0) 2.9 % (0.0-4.0) 3.2 % (0.0-4.0) 3.7 % (0.0-4.0) Basophils (%) (Auto) 0.6 % (0.0-2.0) 1.1 % (0.0-2.0) 0.6 % (0.0-2.0) 0.7 % (0.0-2.0) Neutrophils # (Auto) 3.8 TH/MM3 (1.8-7.7) 4.5 TH/MM3 (1.8-7.7) 4.5 TH/MM3 (1.8-7.7) 5.0 TH/MM3 (1.8-7.7) Lymphocytes # (Auto) 0.9 TH/MM3 (1.0-4.8) 1.0 TH/MM3 (1.0-4.8) 0.7 TH/MM3 (1.0-4.8) 0.7 TH/MM3 (1.0-4.8) Monocytes # (Auto) 0.8 TH/MM3 (0-0.9) 0.8 TH/MM3 (0-0.9) 0.8 TH/MM3 (0-0.9) 0.5 TH/MM3 (0-0.9) Eosinophils # (Auto) 0.1 TH/MM3 (0-0.4) 0.2 TH/MM3 (0-0.4) 0.2 TH/MM3 (0-0.4) 0.2 TH/MM3 (0-0.4) Basophils # (Auto) 0.0 TH/MM3 (0-0.2) 0.1 TH/MM3 (0-0.2) 0.0 TH/MM3 (0-0.2) 0.0 TH/MM3 (0-0.2) CBC Comment AUTO DIFF AUTO DIFF AUTO DIFF DIFF FINAL Differential Total Cells Counted 100 100 100 Neutrophils % (Manual) 61 % (16-70) 65 % (16-70) 57 % (16-70) Band Neutrophils % 1 % (0-6) 4 % (0-6) 7 % (0-6) Lymphocytes % 19 % (9-44) 12 % (9-44) 21 % (9-44) Monocytes % 13 % (0-8) 14 % (0-8) 10 % (0-8) Eosinophils % 4 % (0-4) 1 % (0-4) 2 % (0-4) Neutrophils # (Manual) 3.6 TH/MM3 (1.8-7.7) 4.8 TH/MM3 (1.8-7.7) 4.3 TH/MM3 (1.8-7.7) Metamyelocytes 1 % (0-1) 2 % (0-1) 2 % (0-1) Myelocytes 1 % (0-0) 2 % (0-0) 1 % (0-0) Differential Comment FINAL DIFF MANUAL FINAL DIFF MANUAL FINAL DIFF MANUAL Platelet Estimate NORMAL (NORMAL) NORMAL (NORMAL) NORMAL (NORMAL) Platelet Morphology Comment NORMAL (NORMAL) NORMAL (NORMAL) NORMAL (NORMAL) Ovalocytes 1+ (NORMAL) 1+ (NORMAL) 1+ (NORMAL) Blood Urea Nitrogen 28 MG/DL (7-18) 31 MG/DL (7-18) Creatinine 2.18 MG/DL (0.50-1.00) 2.16 MG/DL (0.50-1.00) Random Glucose 50 MG/DL (74-106) 143 MG/DL (74-106) Calcium Level 8.3 MG/DL (8.5-10.1) 8.9 MG/DL (8.5-10.1) Phosphorus Level 3.6 MG/DL (2.5-4.9) 5.1 MG/DL (2.5-4.9) Magnesium Level 2.1 MG/DL (1.5-2.5) 2.2 MG/DL (1.5-2.5) 2.1 MG/DL (1.5-2.5) Sodium Level 140 MEQ/L (136-145) 137 MEQ/L (136-145) Potassium Level 3.3 MEQ/L (3.5-5.1) 3.4 MEQ/L (3.5-5.1) Chloride Level 101 MEQ/L (98-107) 98 MEQ/L (98-107) Carbon Dioxide Level 28.9 MEQ/L (21.0-32.0) 25.3 MEQ/L (21.0-32.0) Anion Gap 10 MEQ/L (5-15) 14 MEQ/L (5-15) Estimat Glomerular Filtration Rate 23 ML/MIN (>89) 23 ML/MIN (>89) Acanthocytes OCC (NORMAL) Albumin 2.7 GM/DL (3.4-5.0) Triglycerides Level 246 MG/DL (42-150) Test 08/01/17 05:35 Blood Gas Puncture Site RT RADIAL Blood Gas Patient Temperature 98.6 Blood Gas HCO3 24 mmol/L (22-26) Blood Gas Base Excess 0.0 mmol/L (-2-2) Blood Gas Oxygen Saturation 89 % (90-100) Arterial Blood pH 7.39 (7.380-7.420) Arterial Blood Partial Pressure CO2 42 mmHg (38-42) Arterial Blood Partial Pressure O2 65 mmHg (61-120) Arterial Blood Oxygen Content 14.9 Vol % (12.0-20.0) Arterial Blood Carboxyhemoglobin 1.4 % (0-4) Arterial Blood Methemoglobin 1.5 % (0-2) Blood Gas Hemoglobin 11.9 G/DL (12.0-16.0) Oxygen Delivery Device VENTILATOR Blood Gas Ventilator Setting PRVC/AC Result Diagram: 08/01/1752308/01/17523 Imaging Last 48 hours Impressions Chest X-Ray 08/01/17 06 Signed Impressions: Service Date/Time: Tuesday, August 01, 2017 03:42 - CONCLUSION: Worsening left hemithorax opacification may be due to consolidation or pleural effusion otherwise not significantly changed. Hawk Davis MD Procedures * 07/21/17 -right IJ placement * 07/22/17 -endotracheal intubation * 07/24/17 -bronchoscopy * 07/25/17 -US guided thoracentesis . Assessment and Plan Disease Oriented Problem List: (1) Hypoxemic respiratory failure, chronic (2) Pneumonia (3) EDITH (acute kidney injury) (4) Encephalopathy (5) Anemia, chronic disease (6) Morbid obesity (7) History of kidney transplant Symptom Scale: (1) Dyspnea 0-10 Scale: Unable to quantify Comment: Currently on ventilator support. (2) Pain 0-10 Scale: Unable to quantify Comment: On fentanyl drip. (3) Debility 0-10 Scale: Unable to quantify Comment: Progressive secondary to chronic, acute illness. Pertinent Non-Medical Issues Psychosocial: Patient originally from [place]. Moved to [place] in 2001. Patient has been for the past 22 years. They have one son who is 20 years old, special needs secondary to autism. 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 No service. Spiritual: Sikh kait. Legal: No advance directives completed. Ethical issues impacting care: No ethical issues identified. . Important Contacts Patient's Shantanu Dewey , . . Prognosis Mrs. Dewey is a 56-year-old female with a medical history significant for chronic kidney disease status post renal transplant, diabetes mellitus type 2, hypertension, morbid obesity. Patient with history of left kidney transplant in 2000, with radical right nephrectomy of [place] kidneys secondary to renal cancer in May 2017. Patient with progressive decline and multiple recent acute hospitalizations and rehabilitation. Clinical condition complicated by persistent encephalopathy, hypoxemia respiratory failure requiring intubation and mechanical ventilation. Patient's overall prognosis is guarded at this time , she remains a high risk for further complications, continue decline and . . Code Status: Full Code Plan * CODE STATUS: FULL code. * HEALTHCARE DECISION: Patient unable to participating medical decision-making secondary to clinical condition, stated encephalopathy. Unclear at this time if she will regain medical decision-making capacity. No advance directives completed. As per [place] statute, healthcare proxy decision-making falls to patient's Shantanu Dewey. has accepted this role. * GOALS OF CARE: Patient's Shantanu Dewey acting as healthcare proxy decision maker has elected to continue aggressive management to include full code. verbalized that patient's quality of life is his main priority. He would like to allow a few more days for clinical improvement. Tracheostomy and PEG tube conversation initiated given patient's neurological condition, persistent encephalopathy. receptive to palliative care follow-ups for further clarifications of goals of care. * SYMPTOMS: = Shortness of breath, secondary to respiratory failure, pna. Remains intubated on mechanical ventilation. = Pain, secondary to intubation, lines, bedrest, acute illness. Morphine available as needed. Appears comfortable during my visit. = Debility, progressive. Worsen since May. Likely to continue to worsen given acute illness, multiple comorbidities and baseline functional status (bed to wheelchair bound). * Palliative care contact information has been provided to patient's . * Palliative care will continue to follow-up for further clarifications of goals of care as patient's clinical course continues to evolve. . Time Spent Total Floor Time (mins): 32 (Total time to include review of medical records, physical exam, goals of care conversation with patient's , case discussion with bedside RN.) >50% Counseling/Coord of Care: Yes Attestation To help prompt me to consider important information that might be impacting today's encounter and assessment, information from prior notes written by myself or my colleagues may have been "brought forward" into today's note. My signature on this note, however, is an attestation that I personally performed the exam, history, and/or decision-making noted today, and, unless otherwise indicated, the interactions with patient, family, and staff as well as the review of records all occurred today. I also attest that the listed assessment and stated plan reflect my best clinical judgment today based on the combination of historical information, prior notes, and today's exam/ interactions. When time spent is documented, it refers only to time spent today by the signer, or if indicated, combined time spent today by collaborating physician/nurse practitioner. Smita Chirinos Aug 01, 2017 14:12
--- NOTE | 2017-08-01 16:25 | HHI.GIFU ---
Subjective Remarks Pt remains sedated on vent, receiving PPN. OGT clamped. Rectal bag with liquid stool. (Ashleigh Benavides) Objective Vitals I&O Vital Signs Date Time Temp Pulse Resp B/P (MAP) Pulse Ox O2 Delivery O2 Flow Rate FiO2 08/01/17 15:56 94 40 08/01/17 14:00 76 08/01/17 13:01 99 40 08/01/17 12:00 61 08/01/17 12:00 40 08/01/17 12:00 98.3 61 99/62 (74) 97 08/01/17 10:00 66 08/01/17 08:27 96 40 08/01/17 08:00 98.0 66 121/49 (73) 97 08/01/17 08:00 40 08/01/17 08:00 66 08/01/17 06:00 74 08/01/17 04:28 99 40 08/01/17 04:00 40 08/01/17 04:00 67 08/01/17 04:00 98.1 67 143/92 (109) 99 08/01/17 02:00 64 08/01/17 00:35 100 40 08/01/17 00:00 66 08/01/17 00:00 40 08/01/17 00:00 97.9 66 125/83 (97) 100 07/31/17 22:00 72 07/31/17 20:48 100 40 07/31/17 20:00 97.2 68 101/59 (73) 100 07/31/17 20:00 68 07/31/17 20:00 40 07/31/17 18:00 100 40 07/31/17 18:00 74 07/31/17 17:00 97.0 74 153/99 (117) 100 I/O 07/31/17 07/31/17 07/31/17 08/01/17 08/01/17 08/01/17 07:00 15:00 23:00 07:00 15:00 23:00 Intake Total 480 ml 500 ml 2573 ml 420 ml 100 ml Output Total 2250 ml 400 ml 1800 ml Balance -1770 ml 500 ml 2173 ml -1380 ml 100 ml IV Total 300 ml 500 ml 2453 ml 300 ml 100 ml Tube Irrigant 0 ml Other 180 ml 120 ml 120 ml Output Urine Total 2000 ml 200 ml 1600 ml Stool Total 250 ml 200 ml 200 ml Laboratory Laboratory Tests Test 08/01/17 05:24 08/01/17 05:35 White Blood Count 6.6 Red Blood Count 3.03 Hemoglobin 8.6 Hematocrit 26.5 Mean Corpuscular Volume 87.5 Mean Corpuscular Hemoglobin 28.4 Mean Corpuscular Hemoglobin Concent 32.5 Red Cell Distribution Width 15.7 Platelet Count 159 Mean Platelet Volume 7.7 Neutrophils (%) (Auto) 76.3 Lymphocytes (%) (Auto) 11.1 Monocytes (%) (Auto) 8.2 Eosinophils (%) (Auto) 3.7 Basophils (%) (Auto) 0.7 Neutrophils # (Auto) 5.0 Lymphocytes # (Auto) 0.7 Monocytes # (Auto) 0.5 Eosinophils # (Auto) 0.2 Basophils # (Auto) 0.0 CBC Comment DIFF FINAL Differential Comment Blood Urea Nitrogen 31 Creatinine 2.16 Random Glucose 143 Albumin 2.7 Calcium Level 8.9 Phosphorus Level 5.1 Sodium Level 137 Potassium Level 3.4 Chloride Level 98 Carbon Dioxide Level 25.3 Anion Gap 14 Estimat Glomerular Filtration Rate 23 Triglycerides Level 246 Blood Gas Puncture Site RT RADIAL Blood Gas Patient Temperature 98.6 Blood Gas HCO3 24 Blood Gas Base Excess 0.0 Blood Gas Oxygen Saturation 89 Arterial Blood pH 7.39 Arterial Blood Partial Pressure CO2 42 Arterial Blood Partial Pressure O2 65 Arterial Blood Oxygen Content 14.9 Arterial Blood Carboxyhemoglobin 1.4 Arterial Blood Methemoglobin 1.5 Blood Gas Hemoglobin 11.9 Oxygen Delivery Device VENTILATOR Blood Gas Ventilator Setting [facility]/ Date/Time Source Procedure Growth Status 07/20/17 21:46 Blood Peripheral Aerobic Blood Culture - Final NO GROWTH IN 5 DAYS Complete 07/20/17 21:46 Blood Peripheral Anaerobic Blood Culture - Final NO GROWTH IN 5 DAYS Complete 07/25/17 13:19 Fluid Pleural Fluid Fungal Smear - Final NO FUNGAL ELEMENTS SEEN. Resulted 07/25/17 13:19 Fluid Pleural Fluid Fungal Culture - Preliminary NO GROWTH IN 1 WEEK Resulted 07/24/17 16:20 Bronchial Washings Bronchial Gram Stain - Final Complete 07/24/17 16:20 Bronchial Washings Bronchial Bronchial Culture - Final NO GROWTH IN 48 HOURS. Complete 07/25/17 16:44 Urine Clean Catch Urine Culture - Final NO GROWTH IN 48 HOURS. Complete Imaging Last Impressions Chest X-Ray 08/01/17 0600 Signed Impressions: Service Date/Time: Tuesday, August 01, 2017 03:42 - CONCLUSION: Worsening left hemithorax opacification may be due to consolidation or pleural effusion otherwise not significantly changed. Hawk Davis MD Abdomen X-Ray 07/30/17 0000 Signed Impressions: Service Date/Time: Sunday, July 30, 2017 13:16 - CONCLUSION: Limited visualization secondary to body habitus otherwise negative Sherif Diaz MD FACR Abdomen/Pelvis CT 07/29/17 0000 Signed Impressions: Service Date/Time: Sunday, July 30, 2017 00:53 - CONCLUSION: No evidence of bowel obstruction To Coates MD Head CT 07/27/17 0000 Signed Impressions: Service Date/Time: Friday, July 28, 2017 04:59 - CONCLUSION: No acute intracranial findings To Coates MD Thoracentesis Ultrasound 07/25/17 0000 Signed Impressions: Service Date/Time: Tuesday, July 25, 2017 12:49 - CONCLUSION: Uncomplicated ultrasound guided thoracentesis. Varghese Baker MD Chest Ultrasound 07/24/17 1600 Signed Impressions: Service Date/Time: Monday, July 24, 2017 17:18 - CONCLUSION: There is a moderate-sized right pleural effusion confirmed by ultrasound Rosalino Morgan MD Upper Extremity Ultrasound 07/23/17 0000 Signed Impressions: Service Date/Time: Sunday, July 23, 2017 07:48 - CONCLUSION: No evidence of deep venous thrombosis within the upper extremities. Florin Michelle MD Catheter Placement X-Ray 07/21/17 0000 Signed Impressions: Service Date/Time: Friday, July 21, 2017 14:47 - CONCLUSION: Uncomplicated PermaCath placement as above. Idris Diaz MD Physical Exam HEENT: Normocephalic; atraumatic- ETT, OGT clamped CHEST: Diminished CARDIAC: RRR ABDOMEN: Soft, morbidly obese, bowel sounds active x 4, rectal bag with dark, liquid stool EXTREMITIES: Peripheral edema SKIN: Normal; no rash; no jaundice. PRINT CONTROLLER: Sedated on vent (Ashleigh Benavides) Assessment and Plan Plan ASSESSMENT - High residuals on TF- per RN pts TF was stopped on night/Aakash morning for high residuals, she did not tolerate trickle feeds. Rectal bag collecting liquid stool. Bowel sounds active. KUB (07/30) showed no signs of ileus or obstruction, however, limited visualization secondary to body habitus. Pt remains on Reglan 5mg q8hr. Unable to increase dosage due to impaired kidneys. OGT remains clamped. Pt currently receiving nutrition through PPN. Will add Bethanechol. If no improvement with Bethanechol then would recommend GJ tube by IR for J-tube feedings. PLAN - Add Bethanechol 25 mg Q 8 hr - Continue Reglan - Monitor stool - If pt not able to tolerate TF with addition of Bethanechol then would recommend IR consult for GJ tube - Supportive care This patient has been seen and examined by myself and Dr. Rosales and this note is written on his behalf (Ashleigh Benavides) Physician Comments Agree with above assessment and plan. Further recommendations to follow. (Nimo Rosales MD) Ashleigh Benavides Aug 01, 2017 16:25 Nimo Rosales MD Aug 02, 2017 08:39
--- NOTE | 2017-08-01 16:31 | HHI.CCPN ---
Subjective Remarks/Hospital Course I was asked to see patient this evening due to excessive somnolence. She was protecting her airway adequately but otherwise unresponsive except to loud voice or noxious stimulation. She was just started back on dialysis after a renal transplant failed. She has a past medical history of hypertension, hyperlipidemia, depression, morbid obesity, CKD status post renal transplant, renal cell carcinoma status post right nephrectomy, diabetes mellitus and sleep apnea. She presented to the ER 2 days ago with persistent vomiting despite home medication with Zofran and Phenergan. Patient also complains of generalized abdominal pain, worst in the epigastric region. She was discharged from the hospital on 07/13 where she was treated for acute on chronic kidney injury, generalized weakness and hyperkalemia. She is chronically on 2-3 L nasal cannula at home with a history of asthma. She denies any fever/chills. H&H 7.6 /23.8 which is approximately patient's baseline. BUN/creatinine 86/3.89, patient's creatinine 2.66 on 07/13. Chest x-ray showed bibasilar airspace disease with possible bilateral pleural effusions. CT of the abdomen/pelvis with new bibasilar consolidating infiltrate and 3 cm left renal mass which is unchanged from previous. Presently, her respiratory effort is satisfactory and she controls her airway. Major concern is for CO2 retention. Subjective 07/22: Currently orotracheally intubated. On low dose propofol drip at 10 mcg/ kg per minute. Arousable on the ventilator and appointments. Will initiate tube feeding today. 07/23: Afebrile. Patient received transfusion yesterday 1 unit of packed red blood cells hemoglobin stable this a.m.. Patient underwent hemodialysis yesterday approximately 4500 cc removed. Patient continues on sedation for ventilator synchrony. Chest x-ray appears to be worsening. CT brain revealed no abnormalities. 07/24: Afebrile. Chest x-ray showed complete near-complete opacification of the left lung, bronchoscopy planned. Patient noted to have pleural effusions right, ultrasound quantification of pleural effusion pending. Mucomyst initiated. 07/25: Patient's Hgb 6.1 this am, planned in one unit of PRBC. Patient noted large left effusion greater than 770 cc. Thoracentesis performed approximately 990 cc removed from left side. Chest x-ray pending post procedure. BAL performed yesterday, results pending. 07/26: Afebrile. JHONY globin stable as post transfusion yesterday. Patient noted to have high gastric residuals greater than 550 cc, Reglan initiated every 8 hours. IHD 4 L off yesterday. Chest x-ray continues to worsen. 07/27: Sedation vacation again performed today patient writhing around in bed not following commands, continues to appear altered. CT brain EEG ammonia level pending. Patient currently undergoing IHD with targeted to fluid removal of 4 L. KUB performed for persistent residuals no acute abnormality. 07/28: Neurologically the patient thrashing around on not following commands. CT performed negative, EEG negative. Patient noted to have high residuals, patient continues on Reglan 5 mg every 8 hours, and is having daily bowel movements . KUB does not reveal an ileus .GI has been consulted. 07/29: No acute changes overnight. The patient remains nothing by mouth secondary to high residuals. Consult with GI pending. CT of the abdomen and pelvis ordered. 07/30: CT of the abdomen and pelvis was negative no obstruction noted. The patient had a fecal containment device approximately 1 L out in 24 hours yesterday, however the patient is not tolerating tube feeds. Awaiting GI recommendations. The patient remains obtunded fentanyl infusion completely discontinued the patient remains on propofol for ventilator synchrony. Chest x- ray this a.m., left lung collapse appearance of mucous plugging emergency bronchoscopy , Mucomyst planned and possible chest tube placement depending on results. Begin PPN today 07/31: No acute events overnight. Daily sedation vacation, patient not responding, opens eyes spontaneously moves extremities spontaneously, thrashing around does not follow any commands. Palliative care has been consulted and is in discussions with regarding definition of goals of care. The patient underwent bronchoscopy for mucous plugging yesterday the patient has maintain oxygenation without any compromise throughout the day. Am improvement noted on chest x-ray post from the patient continues on Mucomyst for 2 additional days dosing. Subjective: 08/01 Opacification L chest, appears to have volume loss. Thick cisneros secretions. Plan for therapeutic bronchoscopy. Dr. Lerma evaluated today and ordered MRI. Objective Vital Signs Date Time Temp Pulse Resp B/P (MAP) Pulse Ox O2 Delivery O2 Flow Rate FiO2 08/01/17 15:56 94 40 08/01/17 14:00 76 08/01/17 12:00 98.3 99/62 (74) 07/31/17 16:00 18 Intake and Output 08/01/17 08/01/17 08/02/17 08:00 16:00 00:00 Intake Total 420 ml 100 ml Output Total 1800 ml Balance -1380 ml 100 ml Result Diagram: 08/01/17 0524 08/01/17 0524 Other Results Laboratory Tests Test 08/01/17 05:35 Blood Gas Puncture Site RT RADIAL Blood Gas Patient Temperature 98.6 Blood Gas HCO3 24 mmol/L (22-26) Blood Gas Base Excess 0.0 mmol/L (-2-2) Blood Gas Oxygen Saturation 89 % (90-100) Arterial Blood pH 7.39 (7.380-7.420) Arterial Blood Partial Pressure CO2 42 mmHg (38-42) Arterial Blood Partial Pressure O2 65 mmHg (61-120) Arterial Blood Oxygen Content 14.9 Vol % (12.0-20.0) Arterial Blood Carboxyhemoglobin 1.4 % (0-4) Arterial Blood Methemoglobin 1.5 % (0-2) Blood Gas Hemoglobin 11.9 G/DL (12.0-16.0) Oxygen Delivery Device VENTILATOR Blood Gas Ventilator Setting PRVC/AC Imaging Last Impressions Chest X-Ray 07/24/17 0600 Signed Impressions: Service Date/Time: Monday, July 24, 2017 04:01 - CONCLUSION: 1. Near- total opacification of the left chest likely related to diffuse atelectasis or consolidation. 2. Right consolidation or atelectasis especially at the base. Some degree of right effusion needs to be considered. To Leija MD Upper Extremity Ultrasound 07/23/17 0000 Signed Impressions: Service Date/Time: Sunday, July 23, 2017 07:48 - CONCLUSION: No evidence of deep venous thrombosis within the upper extremities. Florin Michelle MD Head CT 07/22/17 0000 Signed Impressions: Service Date/Time: Sunday, July 23, 2017 03:07 - CONCLUSION: No acute intracranial abnormality demonstrated. To Madera MD Catheter Placement X-Ray 07/21/17 0000 Signed Impressions: Service Date/Time: Friday, July 21, 2017 14:47 - CONCLUSION: Uncomplicated PermaCath placement as above. Idris Diaz MD Abdomen/Pelvis CT 07/19/17 0000 Signed Impressions: Service Date/Time: Wednesday, July 19, 2017 16:25 - CONCLUSION: 1. Status post right nephrectomy with no acute findings in the right renal fossa. 2. New bibasilar consolidating infiltrate and small bilateral effusions. 3. Anasarca 4. 3 cm left renal mass; unchanged. 5. Status post cholecystectomy. Schuyler Saucedo MD Last Impressions Chest X-Ray 07/23/17 0600 Signed Impressions: Service Date/Time: Sunday, July 23, 2017 03:39 - CONCLUSION: Worsening effusions and bibasilar consolidation. To Madera MD Head CT 07/22/17 0000 Signed Impressions: Service Date/Time: Sunday, July 23, 2017 03:07 - CONCLUSION: No acute intracranial abnormality demonstrated. To Madera MD Catheter Placement X-Ray 07/21/17 0000 Signed Impressions: Service Date/Time: Friday, July 21, 2017 14:47 - CONCLUSION: Uncomplicated PermaCath placement as above. Idris Diaz MD Abdomen/Pelvis CT 07/19/17 0000 Signed Impressions: Service Date/Time: Wednesday, July 19, 2017 16:25 - CONCLUSION: 1. Status post right nephrectomy with no acute findings in the right renal fossa. 2. New bibasilar consolidating infiltrate and small bilateral effusions. 3. Anasarca 4. 3 cm left renal mass; unchanged. 5. Status post cholecystectomy. Schuyler Saucedo MD Last Impressions Catheter Placement X-Ray 07/21/17 0000 Signed Impressions: Service Date/Time: Friday, July 21, 2017 14:47 - CONCLUSION: Uncomplicated PermaCath placement as above. Idris Diaz MD Chest X-Ray 07/19/17 0000 Signed Impressions: Service Date/Time: Wednesday, July 19, 2017 16:37 - CONCLUSION: Bibasilar airspace disease with possible bilateral effusions. Mild cardiomegaly. Schuyler Saucedo MD Abdomen/Pelvis CT 07/19/17 0000 Signed Impressions: Service Date/Time: Wednesday, July 19, 2017 16:25 - CONCLUSION: 1. Status post right nephrectomy with no acute findings in the right renal fossa. 2. New bibasilar consolidating infiltrate and small bilateral effusions. 3. Anasarca 4. 3 cm left renal mass; unchanged. 5. Status post cholecystectomy. Schuyler Saucedo MD Objective Remarks GENERAL: 56-year-old super morbidly obese female, resting in bed orotracheally intubated and sedated SKIN: Warm and dry. HEAD: Atraumatic. Normocephalic. EYES: Pupils 2 mm, equal round and reactive. Extraocular motions intact ENT: . Endotracheal intubation NECK: Trachea midline. Supple, nontender, right IJ tunneled cuffed catheter in place for hemodialysis CARDIOVASCULAR: sinus on monitor with rate in 60s, RR. Without murmurs, clicks, gallops or rub. Unable to assess JVD secondary to body habitus RESPIRATORY:. Breath sounds diminished left base. Scattered rhonchi. No wheezes or Rales. ABD: Obese, soft, nontender. healed incision R abdomen with firmness beneath likely related to scarring. Umbilical hernia. MUSCULOSKELETAL: 2+ peripheral edema left upper extremity, trace to 1+ right upper extremity chronic. Well perfused. NEUROLOGICAL: Eyes open, blinks to visual threat, does not track. Withdraws to pain in all 4 extremities A/P Assessment and Plan Neuro/Psych: Acute toxic metabolic encephalopathy Depression disorder NOS Altered mental status Currently on propofol for sedation/analgesia while intubated Fent infusion has previously been discontinued Goal of RASS -2 Continue daily sedation vacation Sertraline was held when placed on linezolid. We'll continue to hold at this point in view of mental status. 07/27 CT brain - no acute abnormality 07/28 EEGmoderate to severe encephalopathy. No epileptic activity. MRI pending. Neurology following, Dr. Dr. Lerma CV: Hypertension Dyslipidemia Currently on amlodipine 10 mg daily, hydralazine 50 mg every 8 hours metoprolol 50 mg by mouth twice a day for hypertension. Currently on Pravachol 40 mg daily for dyslipidemia. Aspirin 81 mg daily NS IVF discontinued 07/24 Resp: Acute on chronic hypoxemic respiratory failure Chronic home O2 dependency at 3 L at home History of asthma Ventilator bundle Albuterol/ipratropium aerosols every 4 hours with albuterol aerosols every 2 hours. Dyspnea Continue budesonide 0.5/2 1 inhalation twice a day On fluticasone 44 g 2 puffs twice a day and salmeterol 50 g inhaled twice a day at home CXR 07/23 worsening effusions and bibasilar consolidation small right and moderate left pleural effusions 07/23 US guided marking of lungs 770cc on left, 276 on right 07/25 S/P right thoracentesis 990 cc removed 07/30-chest x-ray-left lung collapse- differential possible mucus plugging versus pleural effusion versus pneumothorax 07/30-Planned bronchoscopy, Mucomyst Bronchoscopy 08/02 with removal of large bloody mucous plug from the left mainstem. Continuing Mucomyst nebs. On PRVC, increase PEEP 10 in effort to maintain pulmonary recruitment and avoid plugging in setting of large body habitus. Lasix 20 mg IV bid. GI: Morbid obesity Hypoalbuminemia On PPN 42 ml/hr. Tube feeds have been on hold due to high residuals. On Reglan 5 mg every 8 hours. Discussed with GI who suspects diabetic gastroparesis. They are initiating bethanechol and if there is no improvement they would recommend IR consultation for GJ tube. Famotidine for GI prophylaxis Docusate sodium/senna 1 tablet twice a day, Lactulose 30 cc twice a day and Docusate suppository when necessary added for bowel regimen Dignishield in place since 07/25, 240 liquid output last 24 hours. RENAL: History renal cell cancer 3 cm left renal mass Status post right nephrectomy May 2017 for renal cell carcinoma Failing autologous renal transplant on chronic immunosuppression Maintain Grant catheter Currently on cyclosporine 100 mg twice a day, increased by nephrology on 07/26 following Cyclosporine level 46. CellCept 500 mg twice a day discontinued to to hx RCC. Continue prednisone 5 mg po daily IHD per nephrology. Holding off on HD today due to increasing UOP. Monitor BMP Endo: Diabetes mellitus Hypothyroidism Currently on insulin detemir 5 units twice a day with Low dose Novolog sliding scale insulin every 6 hours to maintain euglycemia Continue levothyroxine 50 mcg by mouth daily for hypothyroidism. 07/23 TSH- WNL. Heme: Anemia of chronic kidney disease Continue iron sulfate 325 mg twice a day Serial hemoglobins daily. Maintain hemoglobin greater than 7 ID: Healthcare associated pneumonia 07/20 Blood cultures 2- NGTD CMV PCR - negative 07/22 Sputum- neg 07/22 Influenza -neg 07/24 Bronchial wash -neg Was followed by Dr. Price. Completed course of Zosyn and azithromycin and has been watched off antibiotics since 07/29. FEN: Hyperphosphatemia Phoslo on hold, npo. Replace electrolytes as clinically indicated MSK: Elevated BMI greater than 50 Charcot foot PT evaluate and treat Access - Utilize peripheral IVs Prophylaxis - GI - famotidine 10 mg per tube twice a day -DVT- SCD/heparin 5000 units subcutaneous every 8 hours. Palliative care has been consulted to define goals of care with . I updated patient's 08/01. He is aware that she would need trach or PEG if goals of care remain aggressive. He would like to find out the results of the EEG and MRI before making decisions. Level III follow-up Melanie Gutierrez MD Aug 01, 2017 16:31
[2017-08-01] MEDS ORDERED: MIDAZOLAM HCL 5 MG/ML VIAL (1 ML) IV PUSH ONE (16:45)
[2017-08-01] MEDS ORDERED: MIDAZOLAM HCL 5 MG/ML VIAL (1 ML) ONE (16:50)
--- NOTE | 2017-08-01 18:10 | PD.PROCEDR ---
Procedure Note Procedure Date: 08/01/17 Procedure: Therapeutic Fiberoptic bronchoscopy Indication: Patient with mucous plug with opacification of left hemithorax Details of procedure: Informed consent was obtained from patient's after discussion of risks, benefits, alternatives. Patient is on propofol 50 micrograms per KG per minute for sedation. She was administered Versed 2 mg IV and fentanyl 100 g IV for sedation.. The patient was preoxygenated with 100% FiO2 via endotracheal tube . I entered the endotracheal tube with a flexible bronchoscope. There was a large brown clot extending from tip of ETT to the L mainstem bronchus that was removed. There was an abrasion along the anterior aspect of the L mainstem without active bleeding. There was edema and suction trauma noted at left lower lobe subsegment. KWESI relatively clear, mild edema and suction trauma. Left lower lobe subsegments were irrigated with 5 mL normal saline 2. Left upper lobe was irrigated with 5 mL 1. The bronchoscope was advanced into the right upper lobe and subsegments were irrigated with 5 mL x1. There were minimal thin secretions. The bronchoscope was advanced into the right middle lobe which was irrigated with 5 mL 1. Secretions were minimal, thinn. The bronchoscope was advanced into the right lower lobe were again secretions were scant, thin. Irrigated with 5mL x1. There were no endobronchial lesions. The left side was reinspected and was found to be clear significant secretions. Patient tolerated procedure well without apparent complications. . A stat chest x-ray was ordered. Melanie Gutierrez MD Aug 01, 2017 18:10
--- NOTE | 2017-08-01 18:39 | RADRPT ---
EXAM DATE/TIME: 08/01/2017 18:12 [facility] COMPARISON: No previous studies available for comparison. INDICATIONS : Post bronchoscopy. MEDICAL HISTORY : Cardiovascular disease. Chronic obstructive pulmonary disease SURGICAL HISTORY : Cholecystectomy. Nephrectomy, right ENCOUNTER: Subsequent ACUITY: 1 week PAIN SCORE: Non-responsive. LOCATION: Bilateral chest FINDINGS: Persistent left greater than right basilar consolidation. Right base consolidation slightly improved in the interim. A small moderate left pleural effusion is suspected. A don't see a pneumothorax. Endotracheal tube tip is approximately 4.5 cm above the ellie. There is a nasogastric tube coursing into the stomach. Double-lumen right internal jugular central venous catheter present with tip in the superior vena cava. CONCLUSION: 1. Persistent left greater than right basilar consolidation. Right side is slightly improved. 2. Small to moderate left pleural effusion. 3. No pneumothorax. To Madera MD on August 01, 2017 at 18:36 Board Certified Radiologist. This report was verified electronically.
[2017-08-01] MEDS: CLINIMIX 4.25/5 (Cust.Renal Periph) 1000 mL- </= 42 mls/hr IV SCH ×8 (19:59)
[2017-08-01] MEDS: FAT EMULSION 20% INJ 250 ML (@10 mls/hr) IV SCH (19:59)
[2017-08-01] MEDS: PRAVASTATIN SOD 40 MG TAB PO SCH (20:00)
[2017-08-01] MEDS: BETHANECHOL CHL 25 MG TAB PO SCH (21:54)
[2017-08-02] VITALS (19 sets, daily range): BP systolic 129–163; BP diastolic 62–69; PULSE 57–71; RESP 18; TEMP 97.8–98.5; O2SAT 95–100
[2017-08-02] MEDS: PROPOFOL 1000 MG/100 ML IV PRN ×10 (02:57→23:58)
[2017-08-02] MEDS: RESP: ALBUTEROL 2.5 MG/IPRATROPIUM 0.5 MG NEB (SCH) NEB ×4 (03:55→20:08)
[2017-08-02] MEDS: RESP: ACETYLCYSTEINE 10% 30 ML NEB NEB SCH ×2 (03:56→08:21)
--- NOTE | 2017-08-02 04:01 | RADRPT ---
EXAM DATE/TIME: 08/02/2017 03:14 [facility] COMPARISON: CHEST SINGLE AP, August 01, 2017, 18:12. INDICATIONS : Short of breath. MEDICAL HISTORY : Cardiovascular disease. Chronic obstructive pulmonary disease SURGICAL HISTORY : Cholecystectomy. Nephrectomy, right ENCOUNTER: Subsequent ACUITY: 3 weeks PAIN SCORE: 0/10 LOCATION: Bilateral chest FINDINGS: Left basilar opacity is present may be due to a combination of consolidation and or pleural effusion. There is haziness to the lung seaman slightly worse probably worsening pulmonary edema. Lines and tu bes are present not significantly changed. CONCLUSION: Left basilar opacity is present may be due to a combination of consolidation and or pleural effusion not significantly changed, however pulmonary edema has progressed. Hawk Davis MD on August 02, 2017 at 3:59 Board Certified Radiologist. This report was verified electronically.
[2017-08-02] MEDS: hydrALAZINE HCL 25 MG TAB PO SCH ×3 (05:06→22:13)
[2017-08-02] MEDS: BETHANECHOL CHL 25 MG TAB PO SCH ×3 (05:06→21:36)
[2017-08-02] MEDS: LEVOTHYROXINE SODIUM 50 MCG TAB PO SCH (05:06)
[2017-08-02] MEDS: METOCLOPRAMIDE HCL 10 MG/2 ML VIAL IV PUSH SCH ×3 (05:06→21:36)
[2017-08-02] MEDS: HEPARIN SODIUM - SQ 10,000 UNITS/ML VIAL SQ SCH ×3 (05:07→21:36)
[2017-08-02] MEDS: INSULIN ASPART SUPPLEMENTAL SCALE SQ SCH ×4 (06:10→23:49)
[2017-08-02] MEDS: RESP: BUDESONIDE 0.5 MG/2 ML NEB NEB SCH ×2 (08:22→20:07)
[2017-08-02 08:31] LABS: ALBUMIN 2.6 GM/DL (3.4-5.0); ALT (GPT) 14 U/L (10-53); AST (GOT) 25 U/L (15-37); BICARBONATE 24.7 MEQ/L (21.0-32.0); CHLORIDE 103 MEQ/L (98-107); CREATININE 2.19 MG/DL (0.50-1.00); GLOMERULAR FILTRATION RATE 23 ML/MIN (>89); GLUCOSE,RANDOM 170 MG/DL (74-106); MAGNESIUM 2.1 MG/DL (1.5-2.5); PHOSPHORUS 5.2 MG/DL (2.5-4.9); SODIUM (NA) 139 MEQ/L (136-145)
[2017-08-02 08:33] LABS: ALKALINE PHOSPHATASE 88 U/L (45-117); BLOOD UREA NITROGEN 37 MG/DL (7-18); TOTAL BILIRUBIN ADULT 0.6 MG/DL (0.2-1.0); TOTAL PROTEIN 6.1 GM/DL (6.4-8.2)
--- NOTE | 2017-08-02 08:50 | HHI.PR ---
Review/Management Diagnosis metabolic encephalopathy Plan follow up brain MRI and EEG Diagnosis/Plan: Subjective Subjective Comments No acute events reported Active Medications Current Medications Medications (Trade) Dose Ordered Sig/Nadir Route Start Time Stop Time Status Last Admin (NS Flush) 2 ml UNSCH PRN IV FLUSH 07/19/17 18:00 07/29/17 20:19 (NS Flush) 2 ml BID IV FLUSH 07/19/17 21:00 08/01/17 20:00 (Narcan Inj) 0.4 mg UNSCH PRN IV PUSH 07/19/17 18:00 (D50w (Vial) Inj) 50 ml UNSCH PRN IV PUSH 07/19/17 18:00 07/30/17 08:32 (Glucagon Inj) 1 mg UNSCH PRN OTHER 07/19/17 18:00 (Norvasc) 10 mg DAILY PO 07/20/17 09:00 08/01/17 09:01 (Ecotrin Ec) 81 mg DAILY PO 07/20/17 09:00 08/01/17 09:03 (Pepcid) 10 mg BID PO 07/19/17 21:00 08/01/17 20:00 (Flovent Hfa 44 Mcg Inh) 2 puff BID INH 07/19/17 21:00 Future Hold 07/21/17 08:40 (Apresoline) 50 mg Q8HR PO 07/19/17 22:00 08/02/17 05:06 (Synthroid) 50 mcg DAILY@0600 PO 07/20/17 06:00 08/02/17 05:06 (Lopressor) 50 mg BID PO 07/19/17 21:00 08/01/17 20:00 (Serevent Diskus Inh) 50 mcg BID INH 07/19/17 21:00 07/21/17 08:40 (Zoloft) 200 mg DAILY PO 07/20/17 09:00 Future Hold 07/20/17 08:30 (Oscal-D 250-125) 250 mg BIDPC PO 07/20/17 09:00 08/01/17 18:02 (Pravachol) 40 mg HS PO 07/19/17 21:00 08/01/17 20:00 (Heparin Inj) 5,000 units Q8HR SQ 07/19/17 22:00 Future hold 08/02/17 05:07 (Morphine Inj) 2 mg Q4HR PRN IV PUSH 07/20/17 06:45 07/21/17 08:42 (Deltasone) 5 mg DAILY PO 07/21/17 09:00 08/01/17 09:03 Sodium Chloride 1,000 ml @ 0 mls/hr Q0M PRN OTHER 07/20/17 13:19 (Heparin Inj) 8,000 units UNSCH PRN IV FLUSH 07/20/17 13:30 Sodium Chloride 1,000 ml @ 200 mls/hr Q5H PRN IV 07/20/17 13:19 07/27/17 13:52 Sodium Chloride 1,000 ml @ 0 mls/hr Q0M PRN OTHER 07/20/17 13:19 (Mannitol Inj) 12.5 gm UNSCH PRN IV 07/20/17 13:30 07/27/17 13:54 Albumin Human 100 ml @ 60 mls/hr UNSCH PRN IV 07/20/17 13:30 07/27/17 13:54 (NS Flush) 5 ml UNSCH PRN IV FLUSH 07/20/17 13:30 (Heparin Inj) UNSCH PRN .XX 07/20/17 13:30 07/27/17 13:52 (Gentamicin (Dialysis) Inj) 20 mg UNSCH PRN OTHER 07/20/17 13:30 07/27/17 13:53 (Zofran Inj) 4 mg UNSCH PRN IV PUSH 07/20/17 13:30 (Tylenol) 650 mg UNSCH PRN PO 07/20/17 13:30 (Benadryl) 25 mg UNSCH PRN PO 07/20/17 13:30 (Nitrostat Sl) 0.4 mg UNSCH PRN SL 07/20/17 13:30 (Catapres) 0.1 mg UNSCH PRN PO 07/20/17 13:30 (Epogen Inj) 10,000 units UNSCH PRN IV PUSH 07/20/17 13:30 07/27/17 13:53 (Gelfoam 12 Mm/7 Mm Top) 1 foam UNSCH PRN TOP 07/20/17 13:30 (NS Flush) UNSCH PRN IV FLUSH 07/21/17 14:45 (Heparin Inj) UNSCH PRN IV FLUSH 07/21/17 14:45 Miscellaneous Information Patient in critical care unit? Ass... Q361D .XX 07/21/17 21:00 07/21/17 21:00 (Peridex 0.12% Liq) 15 ml BID@08,20 MT 07/22/17 08:00 08/01/17 19:59 (NovoLOG SUPPLEMENTAL SCALE) 1 Q6HR SQ 07/22/17 12:00 08/02/17 06:10 (Albuterol Neb) 2.5 mg Q2HR NEB PRN NEB 07/22/17 07:45 07/28/17 08:23 (Pulmicort Respule Neb) 0.5 mg Q12HR NEB NEB 07/22/17 09:00 08/02/17 08:22 (Levemir Inj) 5 units Q12HR SQ 07/22/17 09:00 08/01/17 20:01 (Phoslo) 667 mg TID PO 07/22/17 09:00 Future Hold 07/28/17 08:36 (Apresoline Inj) 10 mg Q1HR PRN IV PUSH 07/22/17 08:15 07/23/17 02:32 (Trandate Inj) 10 mg Q1HR PRN IV PUSH 07/22/17 08:15 (Nitroglycerin 2% Oint) 2 inch Q6HR PRN TOPICAL 07/22/17 08:15 (Neoral) 100 mg BID@06,18 PO 07/26/17 18:00 08/02/17 05:06 (Reglan Inj) 5 mg Q8HR IV PUSH 07/26/17 22:00 08/02/17 05:06 (Lactulose Liq) 30 ml BID PO 07/28/17 21:00 08/01/17 20:00 (Dulcolax Supp) 10 mg DAILY PRN RECTAL 07/28/17 18:00 (Mucomyst 10% Neb) 2 ml Q6HR NEB NEB 07/30/17 10:00 08/02/17 10:00 08/02/17 08:21 (Duoneb Neb) 1 ampule Q6HR NEB NEB 07/30/17 10:00 08/02/17 08:21 Sodium Chloride 5.5 meq/Sodium Acetate 29.5 meq/ Potassium Chloride 20 meq/ Magnesium Chloride 5 meq/ Calcium Chloride 4.5 meq/ Multivitamins 10 ml/Folic Acid 1 mg/Amino Acids/ Dextrose 1,042.1719 ml @ 42 mls/hr Q24H IV 07/30/17 20:00 08/01/17 19:59 Fat Emulsion Intravenous 250 ml @ 10 mls/hr Q24H IV 07/30/17 20:00 08/01/17 19:59 (Lasix Inj) 20 mg BID@09,18 IV PUSH 07/30/17 18:00 08/01/17 18:01 Propofol 100 ml @ 5.4 mls/hr TITRATE PRN IV 07/31/17 00:45 08/02/17 05:49 (Ferrous Sulfate Liq) 300 mg BID PO 07/31/17 21:00 08/01/17 20:00 (Urecholine) 25 mg Q8HR PO 08/01/17 22:00 08/02/17 05:06 Allergies Allergies Coded Allergies adhesive (Unverified Allergy, Severe, SILK TAPE, 07/07/17) NSAIDS (Non-Steroidal Anti-Inflamma (Verified Adverse Reaction, Severe, Nausea /Vomiting, 07/07/17) Exam I&O / VS Vital Signs Date Time Temp Pulse Resp B/P (MAP) Pulse Ox O2 Delivery O2 Flow Rate FiO2 08/02/17 08:17 100 35 08/02/17 06:00 58 08/02/17 04:20 95 35 08/02/17 04:00 97.9 68 18 163/67 (99) 98 08/02/17 04:00 35 08/02/17 04:00 68 08/02/17 02:00 68 08/02/17 01:07 35 08/02/17 01:07 96 35 08/02/17 00:00 71 08/02/17 00:00 98.4 71 18 159/64 (95) 97 08/02/17 00:00 40 08/01/17 22:09 98 40 08/01/17 22:00 69 08/01/17 20:00 98.5 73 18 126/59 (81) 97 08/01/17 20:00 40 08/01/17 20:00 73 08/01/17 19:52 100 40 08/01/17 18:08 100 100 08/01/17 18:00 74 08/01/17 16:00 63 08/01/17 16:00 98.6 63 18 103/69 (80) 94 08/01/17 16:00 40 08/01/17 15:56 94 40 08/01/17 14:00 76 08/01/17 13:01 99 40 08/01/17 12:00 61 08/01/17 12:00 40 08/01/17 12:00 98.3 61 99/62 (74) 97 08/01/17 10:00 66 Respiratory: Lungs CTA, Non-labored respirations, BS equal Cardiology: Normal rate, Regular Rhythm Musculoskeletal: Swelling Exam Comments nonresponsive Cn intact MOTOR no focal deficit Objective Radiology Results MRI--pending Micro and Labs Laboratory Tests Test 08/02/17 07:58 Blood Urea Nitrogen 37 Creatinine 2.19 Random Glucose 170 Total Protein 6.1 Albumin 2.6 Calcium Level 9.0 Phosphorus Level 5.2 Magnesium Level 2.1 Alkaline Phosphatase 88 Aspartate Amino Transf (AST/SGOT) 25 Alanine Aminotransferase (ALT/SGPT) 14 Total Bilirubin 0.6 Sodium Level 139 Potassium Level 4.1 Chloride Level 103 Carbon Dioxide Level 24.7 Anion Gap 11 Estimat Glomerular Filtration Rate 23 Date/Time Source Procedure Growth Status 07/20/17 21:46 Blood Peripheral Aerobic Blood Culture - Final NO GROWTH IN 5 DAYS Complete 07/20/17 21:46 Blood Peripheral Anaerobic Blood Culture - Final NO GROWTH IN 5 DAYS Complete 07/25/17 13:19 Fluid Pleural Fluid Fungal Smear - Final NO FUNGAL ELEMENTS SEEN. Resulted 07/25/17 13:19 Fluid Pleural Fluid Fungal Culture - Preliminary NO GROWTH IN 1 WEEK Resulted 07/24/17 16:20 Bronchial Washings Bronchial Gram Stain - Final Complete 07/24/17 16:20 Bronchial Washings Bronchial Bronchial Culture - Final NO GROWTH IN 48 HOURS. Complete 07/25/17 16:44 Urine Clean Catch Urine Culture - Final NO GROWTH IN 48 HOURS. Complete Aneesh Lerma PhD Aug 02, 2017 08:50
[2017-08-02] MEDS: CHLORHEXIDINE 0.12% (ORAL KIT) 15 ML CUP MT SCH ×2 (08:52→19:26)
[2017-08-02] MEDS: SALMETEROL XINAFOATE 50 MCG DISKUS INH SCH (08:53)
[2017-08-02] MEDS: FERROUS SULFATE 300 MG /5ML UDC PO SCH ×2 (08:53→19:27)
[2017-08-02] MEDS: LACTULOSE SYRUP 20 GM/30 ML CUP PO SCH ×2 (08:53→19:27)
[2017-08-02] MEDS: FUROSEMIDE 20 MG/2 ML VIAL IV PUSH SCH ×2 (08:53→17:10)
[2017-08-02] MEDS: predniSONE 5 MG TAB PO SCH (08:54)
[2017-08-02] MEDS: METOPROLOL TARTRATE 50 MG TAB PO SCH ×2 (08:54→21:35)
[2017-08-02] MEDS: FAMOTIDINE 20 MG TAB PO SCH ×2 (08:54→19:27)
[2017-08-02] MEDS: ASPIRIN EC 81 MG TABEC PO SCH (08:54)
[2017-08-02] MEDS: amLODIPine BESYLATE 5 MG TAB PO SCH (08:54)
[2017-08-02] MEDS: SODIUM CHLORIDE 0.9% FLUSH 10 ML FLUSH IV FLUSH SCH ×2 (08:54→19:27)
[2017-08-02] MEDS: CALCIUM/VITAMIN D 250 MG/125 U TAB PO SCH ×2 (08:54→17:10)
[2017-08-02] MEDS: INSULIN DETEMIR 100 UNITS/ML VIAL SQ SCH ×2 (08:55→21:35)
--- NOTE | 2017-08-02 09:07 | HHI.NPPN ---
Subjective Renal Failure: Chronic, Acute Interval History Underwent bronchoscopy for removal of mucus plug. Excellent urine output. Renal function is stable. Will defer dialysis. Review of Systems General General Remarks unable to evaluate Cardiovascular Cardiac: Edema Objective Data Data Vital Signs Date Time Temp Pulse Resp B/P (MAP) Pulse Ox O2 Delivery O2 Flow Rate FiO2 08/02/17 08:17 100 35 08/02/17 06:00 58 08/02/17 04:20 95 35 08/02/17 04:00 97.9 68 18 163/67 (99) 98 08/02/17 04:00 35 08/02/17 04:00 68 08/02/17 02:00 68 08/02/17 01:07 35 08/02/17 01:07 96 35 08/02/17 00:00 71 08/02/17 00:00 98.4 71 18 159/64 (95) 97 08/02/17 00:00 40 08/01/17 22:09 98 40 08/01/17 22:00 69 08/01/17 20:00 98.5 73 18 126/59 (81) 97 08/01/17 20:00 40 08/01/17 20:00 73 08/01/17 19:52 100 40 08/01/17 18:08 100 100 08/01/17 18:00 74 08/01/17 16:00 63 08/01/17 16:00 98.6 63 18 103/69 (80) 94 08/01/17 16:00 40 08/01/17 15:56 94 40 08/01/17 14:00 76 08/01/17 13:01 99 40 08/01/17 12:00 61 08/01/17 12:00 40 08/01/17 12:00 98.3 61 99/62 (74) 97 08/01/17 10:00 66 -: 08/01/17 0524 08/02/17 0758 Tubes & Lines: Perma-Cath, Grant Tubes & Lines Comment rectal bag Drip Comment Propofol, fentanyl Physical Exam General Appearance: Obese Eyes Eye Exam: Pupils Equal Neck Neck Exam: Neck Supple Pulmonary Resp Exam: Crackles, Rhonchi, Decreased Bases, Diminished Breath Sounds Cardiology CV Exam: Regular, Normal Sinus Rhythm Gastrointestinal/Abdomen GI Exam: Soft, Non-Tender, Bowel Sounds Present Musculoskeletal MS Exam: Normal Tone, Unable to Ambulate Integumentary Skin Exam: Warm, Dry Extremeties Extremities Exam: Moderate Edema, Pitting Edema, Dependent Edema Neurologic Neuro Exam: Unresponsive, Sedated Assessment/Plan Assessment Summary: Anemia of CKD, Hypertension, Diabetes Mellitus Problem List: (1) EDITH (acute kidney injury) ICD Codes: N17.9 - Acute kidney failure, unspecified Status: Acute Plan: Has hx of renal transplant in 2000 and a hx of nephrectomy due to renal cell CA in 2017 Has underlying stage IV CKD. She may have suffered ATN or worsening chronic graft loss. She is now nonoliguric. HD initiated on 07/21, currently dialysis is on hold. Will defer dialysis again today. Monitor urine output and renal function. Avoid nephrotoxic agents. (2) H/O kidney transplant ICD Codes: Z94.0 - Kidney transplant status Status: Acute Plan: Patient has a failing allograft Continue immunosuppression, she is on prednisone and cyclosporine. Cellcept has been discontinued due to hx of RCC. Monitor cyclosporine level, it is currently low. Dosage increased to 100 mg BID I will repeat Cyclosporine level again. (3) Diabetes ICD Codes: E11.9 - Type 2 diabetes mellitus without complications Status: Chronic Plan: Monitor glucose, maintain 140-180 mg/dL this admission (4) HTN (hypertension) ICD Codes: I10 - Essential (primary) hypertension Status: Chronic Plan: Continue medications as ordered, titrate as needed (5) Pneumonia ICD Codes: J18.9 - Pneumonia, unspecified organism Plan: ID following, Chest xray reviewed, s/p left thoracentesis, 975 ml removed Problem Qualifiers (1) Diabetes: Antonio Velez MD Aug 02, 2017 09:07
--- NOTE | 2017-08-02 11:57 | RADRPT ---
EXAM DATE/TIME: 08/02/2017 10:51 [facility] COMPARISON: CT BRAIN W/O CONTRAST, July 28, 2017, 4:59. INDICATIONS : Altered mental status. MEDICAL HISTORY : Renal cell ca. SURGICAL HISTORY : Cholecystectomy. Tonsillectomy. Nephrectomy, right. ENCOUNTER: Subsequent ACUITY: 2 weeks PAIN SCORE: Nonresponsive. LOCATION: head TECHNIQUE: Multiplanar, multisequence MRI of the brain was performed without contrast. The examination is limite d due to motion artifact on essentially all the images presented. FINDINGS: CEREBRUM: The ventricles are normal for age. There is bilateral cortical atrophy and chronic white matter carlos ges. No evidence of midline shift, mass lesion, hemorrhage or acute infarction. No extraaxial fluid collections are seen. The pituitary gland and suprasellar cistern are normal in configuration. WHITE MATTER: No significant signal abnormalities are seen in the white matter. POSTERIOR FOSSA: The cerebellum and brainstem are intact. The 4th ventricle is midline. The cerebellopontine angle is unremarkable. The cerebellar tonsils are normal in position. DIFFUSION IMAGING: No focal areas of restricted diffusion are seen. No evidence of acute infarction. EXTRACRANIAL: The visualized portions of the orbits are unremarkable. There is chronic sinus disease in the left ma xillary sinus, ethmoid sinuses bilaterally and sphenoid sinuses bilaterally. There is also increased signal in the mastoid air cells bilaterally characteristic of chronic mastoiditis. CONCLUSION: 1. Limited examination due to motion artifact on essentially all the images presented. 2. Bilateral cortical atrophy and chronic white matter changes. 3. No definite acute intracranial pathology. 4. Chronic sinus disease. Marco A Abraham MD on August 02, 2017 at 11:50 Board Certified Radiologist. This report was verified electronically.
--- NOTE | 2017-08-02 12:52 | HHI.HCPN ---
Reason for visit a. To assist with evaluation and management of symptoms including: Shortness of breath, pain, debility. b. To assist medical decision maker(s) with: better understanding of current medical conditions; weighing benefits/burdens of medical treatment options; making medical treatment decisions. . Subjective/Interval History Palliative care follow up for further clarifications of goals of care. Patient remains endotracheally intubated on mechanical ventilation, persistent encephalopathy. Neurology following, pending MRI of the brain. Chest x-ray today revealing worsening pulmonary edema, patient underwent therapeutic bronchoscopy yesterday secondary to mucus plugging with opacification of left hemithorax. Tube feedings remain on hold secondary to high residuals. GI following, likely diabetes gastroparesis. Renal function improving, good urinary output. Nephrology following, hemodialysis deferred. Patient remains afebrile, stable hemodynamically. Telephone conversation with patient's Shantanu Dewey. Medical update provided. Reviewed clinical course and current medical management. tells me that he spoke with Dr. Gutierrez yesterday. Continued trach and PEG conversation given patient's unchanged neurological status. receptive to ongoing goals of care conversation as patient's clinical course continues to evolve, pending brain MRI. Case discussed with bedside RN. Wilde. . Family/friend interactions See interval note. . Advance Directives Living Will: Never completed Health Care Surrogate: Never completed Durable Power of Study Manager: Never completed Advance Directive Specifics Health Care Surrogate(s): No advance directives completed. As per [place] statute, healthcare proxy decision-making falls to patient's Shantanu Dewey. . Significant change in goals: Goals remain aggressive at this time. . Objective Vital Signs Date Time Temp Pulse Resp B/P (MAP) Pulse Ox O2 Delivery O2 Flow Rate FiO2 08/02/17 10:00 61 08/02/17 08:17 100 35 08/02/17 08:00 97.8 62 18 151/67 (95) 98 08/02/17 08:00 62 08/02/17 08:00 35 08/02/17 06:00 58 08/02/17 04:20 95 35 08/02/17 04:00 97.9 68 18 163/67 (99) 98 08/02/17 04:00 35 08/02/17 04:00 68 08/02/17 02:00 68 08/02/17 01:07 35 08/02/17 01:07 96 35 08/02/17 00:00 71 08/02/17 00:00 98.4 71 18 159/64 (95) 97 08/02/17 00:00 40 08/01/17 22:09 98 40 08/01/17 22:00 69 08/01/17 20:00 98.5 73 18 126/59 (81) 97 08/01/17 20:00 40 08/01/17 20:00 73 08/01/17 19:52 100 40 08/01/17 18:08 100 100 08/01/17 18:00 74 08/01/17 16:00 63 08/01/17 16:00 98.6 63 18 103/69 (80) 94 08/01/17 16:00 40 08/01/17 15:56 94 40 08/01/17 14:00 76 08/01/17 13:01 99 40 Intake & Output 08/02/17 08/02/17 07:00 19:00 Intake Total 2282.1719 ml 95 ml Output Total 1900 ml Balance 382.1719 ml 95 ml IV Total 2162.1719 ml 95 ml Other 120 ml Output Urine Total 1300 ml Stool Total 600 ml Physical Exam CONSTITUTIONAL/GENERAL: This is a morbidly obese female resting in bed in no acute distress. Ill looking. TUBES/LINES/DRAINS: ETT, OG, Grant catheter, rectal tube, SCDs. SKIN: Very pale, greenish tint to skin. No jaundice, rashes, or lesions. Ecchymoses on upper extremities. No wounds seen anteriorly. Skin temperature appropriate. Not diaphoretic. HEAD: Atraumatic. Normocephalic. EYES: Pupils equal and round and reactive.No scleral icterus. No injection or drainage. Fundi not examined. ENT: Unable to evaluate hearing secondary to clinical condition. Nose without bleeding or purulent drainage. Moist oral mucosa. Endotracheally intubated. NECK: Trachea midline. Supple. CARDIOVASCULAR: Regular rate and rhythm. Week pedal pulses. RESPIRATORY/CHEST: Symmetric, unlabored respirations. Clear, diminished to auscultation. GASTROINTESTINAL: Abdomen obese, large, round. Areas of hardening noted underneath surgical scars. Bowel sounds hypoactive. Unable to asses for hepatomegaly secondary to large body habitus. GENITOURINARY: Without palpable bladder distension. Urinary catheter in place. MUSCULOSKELETAL: Extremities without clubbing, cyanosis. Anasarca. NEUROLOGICAL: Unresponsive to verbal or tactile stimuli. Sedated. PSYCHIATRIC: Unable to assess secondary to clinical condition. Appears calm. . Diagnostic Tests Laboratory Laboratory Tests Test 07/31/17 05:55 08/01/17 05:24 08/01/17 05:35 08/02/17 07:58 White Blood Count 6.4 TH/MM3 (4.0-11.0) 6.6 TH/MM3 (4.0-11.0) Red Blood Count 3.12 MIL/MM3 (4.00-5.30) 3.03 MIL/MM3 (4.00-5.30) Hemoglobin 8.9 GM/DL (11.6-15.3) 8.6 GM/DL (11.6-15.3) Hematocrit 27.5 % (35.0-46.0) 26.5 % (35.0-46.0) Mean Corpuscular Volume 88.0 FL (80.0-100.0) 87.5 FL (80.0-100.0) Mean Corpuscular Hemoglobin 28.5 PG (27.0-34.0) 28.4 PG (27.0-34.0) Mean Corpuscular Hemoglobin Concent 32.4 % (32.0-36.0) 32.5 % (32.0-36.0) Red Cell Distribution Width 15.7 % (11.6-17.2) 15.7 % (11.6-17.2) Platelet Count 164 TH/MM3 (150-450) 159 TH/MM3 (150-450) Mean Platelet Volume 7.3 FL (7.0-11.0) 7.7 FL (7.0-11.0) Neutrophils (%) (Auto) 71.4 % (16.0-70.0) 76.3 % (16.0-70.0) Lymphocytes (%) (Auto) 11.5 % (9.0-44.0) 11.1 % (9.0-44.0) Monocytes (%) (Auto) 13.3 % (0.0-8.0) 8.2 % (0.0-8.0) Eosinophils (%) (Auto) 3.2 % (0.0-4.0) 3.7 % (0.0-4.0) Basophils (%) (Auto) 0.6 % (0.0-2.0) 0.7 % (0.0-2.0) Neutrophils # (Auto) 4.5 TH/MM3 (1.8-7.7) 5.0 TH/MM3 (1.8-7.7) Lymphocytes # (Auto) 0.7 TH/MM3 (1.0-4.8) 0.7 TH/MM3 (1.0-4.8) Monocytes # (Auto) 0.8 TH/MM3 (0-0.9) 0.5 TH/MM3 (0-0.9) Eosinophils # (Auto) 0.2 TH/MM3 (0-0.4) 0.2 TH/MM3 (0-0.4) Basophils # (Auto) 0.0 TH/MM3 (0-0.2) 0.0 TH/MM3 (0-0.2) CBC Comment AUTO DIFF DIFF FINAL Differential Total Cells Counted 100 Neutrophils % (Manual) 57 % (16-70) Band Neutrophils % 7 % (0-6) Lymphocytes % 21 % (9-44) Monocytes % 10 % (0-8) Eosinophils % 2 % (0-4) Neutrophils # (Manual) 4.3 TH/MM3 (1.8-7.7) Metamyelocytes 2 % (0-1) Myelocytes 1 % (0-0) Differential Comment FINAL DIFF MANUAL Platelet Estimate NORMAL (NORMAL) Platelet Morphology Comment NORMAL (NORMAL) Ovalocytes 1+ (NORMAL) Acanthocytes OCC (NORMAL) Magnesium Level 2.1 MG/DL (1.5-2.5) 2.1 MG/DL (1.5-2.5) Blood Urea Nitrogen 31 MG/DL (7-18) 37 MG/DL (7-18) Creatinine 2.16 MG/DL (0.50-1.00) 2.19 MG/DL (0.50-1.00) Random Glucose 143 MG/DL (74-106) 170 MG/DL (74-106) Albumin 2.7 GM/DL (3.4-5.0) 2.6 GM/DL (3.4-5.0) Calcium Level 8.9 MG/DL (8.5-10.1) 9.0 MG/DL (8.5-10.1) Phosphorus Level 5.1 MG/DL (2.5-4.9) 5.2 MG/DL (2.5-4.9) Sodium Level 137 MEQ/L (136-145) 139 MEQ/L (136-145) Potassium Level 3.4 MEQ/L (3.5-5.1) 4.1 MEQ/L (3.5-5.1) Chloride Level 98 MEQ/L (98-107) 103 MEQ/L (98-107) Carbon Dioxide Level 25.3 MEQ/L (21.0-32.0) 24.7 MEQ/L (21.0-32.0) Anion Gap 14 MEQ/L (5-15) 11 MEQ/L (5-15) Estimat Glomerular Filtration Rate 23 ML/MIN (>89) 23 ML/MIN (>89) Triglycerides Level 246 MG/DL (42-150) Blood Gas Puncture Site RT RADIAL Blood Gas Patient Temperature 98.6 Blood Gas HCO3 24 mmol/L (22-26) Blood Gas Base Excess 0.0 mmol/L (-2-2) Blood Gas Oxygen Saturation 89 % (90-100) Arterial Blood pH 7.39 (7.380-7.420) Arterial Blood Partial Pressure CO2 42 mmHg (38-42) Arterial Blood Partial Pressure O2 65 mmHg (61-120) Arterial Blood Oxygen Content 14.9 Vol % (12.0-20.0) Arterial Blood Carboxyhemoglobin 1.4 % (0-4) Arterial Blood Methemoglobin 1.5 % (0-2) Blood Gas Hemoglobin 11.9 G/DL (12.0-16.0) Oxygen Delivery Device VENTILATOR Blood Gas Ventilator Setting PRVC/AC Total Protein 6.1 GM/DL (6.4-8.2) Alkaline Phosphatase 88 U/L (45-117) Aspartate Amino Transf (AST/SGOT) 25 U/L (15-37) Alanine Aminotransferase (ALT/SGPT) 14 U/L (10-53) Total Bilirubin 0.6 MG/DL (0.2-1.0) Result Diagram: 08/01/17 0524 08/02/17 0758 Procedures * 08/01/17 -bronchoscopy * 07/21/17 -right IJ placement * 07/22/17 -endotracheal intubation * 07/24/17 -bronchoscopy * 07/25/17 -US guided thoracentesis . Assessment and Plan Disease Oriented Problem List: (1) Hypoxemic respiratory failure, chronic (2) Pneumonia (3) EDITH (acute kidney injury) (4) Encephalopathy (5) Anemia, chronic disease (6) Morbid obesity (7) History of kidney transplant Symptom Scale: (1) Dyspnea 0-10 Scale: Unable to quantify Comment: Currently on ventilator support. (2) Pain 0-10 Scale: Unable to quantify Comment: On fentanyl drip. (3) Debility 0-10 Scale: Unable to quantify Comment: Progressive secondary to chronic, acute illness. Pertinent Non-Medical Issues Psychosocial: Patient originally from [place]. Moved to [place] in 2001. Patient has been for the past 22 years. They have one son who is 20 years old, special needs secondary to autism. 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 No service. Spiritual: Pentecostal kait. Legal: No advance directives completed. Ethical issues impacting care: No ethical issues identified. . Important Contacts Patient's Shantanu Dewey , . . Prognosis Mrs. Dewey is a 56-year-old female with a medical history significant for chronic kidney disease status post renal transplant, diabetes mellitus type 2, hypertension, morbid obesity. Patient with history of left kidney transplant in 2000, with radical right nephrectomy of [place] kidneys secondary to renal cancer in May 2017. Patient with progressive decline and multiple recent acute hospitalizations and rehabilitation. Clinical condition complicated by persistent encephalopathy, hypoxemia respiratory failure requiring intubation and mechanical ventilation. Patient's overall prognosis is guarded at this time , she remains a high risk for further complications, continue decline and . . Code Status: Full Code Plan * CODE STATUS: FULL code. * HEALTHCARE DECISION: Patient unable to participating medical decision-making secondary to clinical condition, stated encephalopathy. Unclear at this time if she will regain medical decision-making capacity. No advance directives completed. As per [place] statute, healthcare proxy decision-making falls to patient's Shantanu Dewey. has accepted this role. * GOALS OF CARE: Patient's Shantanu Dewey acting as healthcare proxy decision maker has elected to continue aggressive management to include full code -pending brain MRI/neuro assessment to resume trach and PEG conversation. verbalized that patient's quality of life is his main priority. He would like to allow a few more days for clinical improvement. Tracheostomy and PEG tube conversation initiated given patient's neurological condition, persistent encephalopathy. receptive to palliative care follow-ups for further clarifications of goals of care. * SYMPTOMS: = Shortness of breath, secondary to respiratory failure, pna. Remains intubated on mechanical ventilation. Worsening pulmonary edema. = Pain , secondary to intubation, lines, bedrest, acute illness. Morphine available as needed. Appears comfortable during my visit. = Debility, progressive. Worsen since May. Likely to continue to worsen given acute illness, multiple comorbidities and baseline functional status (bed to wheelchair bound). * Case discussed with bedside RN Andry. * Palliative care contact information has been provided to patient's . * Palliative care will continue to follow-up for further clarifications of goals of care as patient's clinical course continues to evolve. . Time Spent Total Floor Time (mins): 32 (Total time to include review and summarization of medical records, physical exam, goals of care conversation with patient's , case discussion with bedside RN.) >50% Counseling/Coord of Care: Yes Attestation To help prompt me to consider important information that might be impacting today's encounter and assessment, information from prior notes written by myself or my colleagues may have been "brought forward" into today's note. My signature on this note, however, is an attestation that I personally performed the exam, history, and/or decision-making noted today, and, unless otherwise indicated, the interactions with patient, family, and staff as well as the review of records all occurred today. I also attest that the listed assessment and stated plan reflect my best clinical judgment today based on the combination of historical information, prior notes, and today's exam/ interactions. When time spent is documented, it refers only to time spent today by the signer, or if indicated, combined time spent today by collaborating physician/nurse practitioner. Smita Chirinos Aug 02, 2017 12:52
--- NOTE | 2017-08-02 13:38 | HHI.GIFU ---
Subjective Remarks Pt remain intubated, on sedation. Rectal bag with liquid, dark stool. (Ashleigh Benavides) Objective Vitals I&O Vital Signs Date Time Temp Pulse Resp B/P (MAP) Pulse Ox O2 Delivery O2 Flow Rate FiO2 08/02/17 12:48 97 35 08/02/17 10:00 61 08/02/17 08:17 100 35 08/02/17 08:00 97.8 62 18 151/67 (95) 98 08/02/17 08:00 62 08/02/17 08:00 35 08/02/17 06:00 58 08/02/17 04:20 95 35 08/02/17 04:00 97.9 68 18 163/67 (99) 98 08/02/17 04:00 35 08/02/17 04:00 68 08/02/17 02:00 68 08/02/17 01:07 35 08/02/17 01:07 96 35 08/02/17 00:00 71 08/02/17 00:00 98.4 71 18 159/64 (95) 97 08/02/17 00:00 40 08/01/17 22:09 98 40 08/01/17 22:00 69 08/01/17 20:00 98.5 73 18 126/59 (81) 97 08/01/17 20:00 40 08/01/17 20:00 73 08/01/17 19:52 100 40 08/01/17 18:08 100 100 08/01/17 18:00 74 08/01/17 16:00 63 08/01/17 16:00 98.6 63 18 103/69 (80) 94 08/01/17 16:00 40 08/01/17 15:56 94 40 08/01/17 14:00 76 I/O 08/01/17 08/01/17 08/01/17 08/02/17 08/02/17 08/02/17 07:00 15:00 23:00 07:00 15:00 23:00 Intake Total 420 ml 100 ml 1592.1719 ml 890 ml 95 ml Output Total 1800 ml 2100 ml 1900 ml Balance -1380 ml 100 ml -507.8281 ml -1010 ml 95 ml IV Total 300 ml 100 ml 1492.1719 ml 770 ml 95 ml Other 120 ml 100 ml 120 ml Output Urine Total 1600 ml 1800 ml 1300 ml Stool Total 200 ml 300 ml 600 ml Laboratory Laboratory Tests Test 08/02/17 07:58 Blood Urea Nitrogen 37 Creatinine 2.19 Random Glucose 170 Total Protein 6.1 Albumin 2.6 Calcium Level 9.0 Phosphorus Level 5.2 Magnesium Level 2.1 Alkaline Phosphatase 88 Aspartate Amino Transf (AST/SGOT) 25 Alanine Aminotransferase (ALT/SGPT) 14 Total Bilirubin 0.6 Sodium Level 139 Potassium Level 4.1 Chloride Level 103 Carbon Dioxide Level 24.7 Anion Gap 11 Estimat Glomerular Filtration Rate 23 Date/Time Source Procedure Growth Status 07/20/17 21:46 Blood Peripheral Aerobic Blood Culture - Final NO GROWTH IN 5 DAYS Complete 07/20/17 21:46 Blood Peripheral Anaerobic Blood Culture - Final NO GROWTH IN 5 DAYS Complete 07/25/17 13:19 Fluid Pleural Fluid Fungal Smear - Final NO FUNGAL ELEMENTS SEEN. Resulted 07/25/17 13:19 Fluid Pleural Fluid Fungal Culture - Preliminary NO GROWTH IN 1 WEEK Resulted 07/24/17 16:20 Bronchial Washings Bronchial Gram Stain - Final Complete 07/24/17 16:20 Bronchial Washings Bronchial Bronchial Culture - Final NO GROWTH IN 48 HOURS. Complete 07/25/17 16:44 Urine Clean Catch Urine Culture - Final NO GROWTH IN 48 HOURS. Complete Imaging Last Impressions Chest X-Ray 08/02/17 0600 Signed Impressions: Service Date/Time: Wednesday, August 02, 2017 03:14 - CONCLUSION: Left basilar opacity is present may be due to a combination of consolidation and or pleural effusion not significantly changed, however pulmonary edema has progressed. Hawk Davis MD Brain MRI 08/02/17 0000 Signed Impressions: Service Date/Time: Wednesday, August 02, 2017 10:51 - CONCLUSION: 1. Limited examination due to motion artifact on essentially all the images presented. 2. Bilateral cortical atrophy and chronic white matter changes. 3. No definite acute intracranial pathology. 4. Chronic sinus disease. Marco A Abraham MD Abdomen X-Ray 07/30/17 0000 Signed Impressions: Service Date/Time: Sunday, July 30, 2017 13:16 - CONCLUSION: Limited visualization secondary to body habitus otherwise negative Sherif Diaz MD FACR Abdomen/Pelvis CT 07/29/17 0000 Signed Impressions: Service Date/Time: Sunday, July 30, 2017 00:53 - CONCLUSION: No evidence of bowel obstruction To Coates MD Head CT 07/27/17 0000 Signed Impressions: Service Date/Time: Friday, July 28, 2017 04:59 - CONCLUSION: No acute intracranial findings To Coates MD Thoracentesis Ultrasound 07/25/17 0000 Signed Impressions: Service Date/Time: Tuesday, July 25, 2017 12:49 - CONCLUSION: Uncomplicated ultrasound guided thoracentesis. Varghese Baker MD Chest Ultrasound 07/24/17 1600 Signed Impressions: Service Date/Time: Monday, July 24, 2017 17:18 - CONCLUSION: There is a moderate-sized right pleural effusion confirmed by ultrasound Rosalino Morgan MD Upper Extremity Ultrasound 07/23/17 0000 Signed Impressions: Service Date/Time: Sunday, July 23, 2017 07:48 - CONCLUSION: No evidence of deep venous thrombosis within the upper extremities. Florin Michelle MD Catheter Placement X-Ray 07/21/17 0000 Signed Impressions: Service Date/Time: Friday, July 21, 2017 14:47 - CONCLUSION: Uncomplicated PermaCath placement as above. Idris Diaz MD Physical Exam HEENT: Normocephalic; atraumatic- ETT, OGT clamped CHEST: Diminished CARDIAC: RRR ABDOMEN: Soft, morbidly obese, bowel sounds active x 4, rectal bag with dark, liquid stool EXTREMITIES: Peripheral edema SKIN: Normal; no rash; no jaundice. 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 Rectal bag collecting liquid stool. Bowel sounds active. KUB (07/30) showed no signs of ileus or obstruction, however, limited visualization secondary to body habitus. Pt remains on Reglan 5mg q8hr. Unable to increase dosage due to impaired kidneys. OGT remains clamped. Pt currently receiving nutrition through PPN. Will add Bethanechol. If no improvement with Bethanechol then would recommend GJ tube by IR for J-tube feedings. 08/02 Pts TF has not been restarted. Per palliative care pts husbands wishes regarding aggressive care will be determined following neurology recommendations after EEG and brain MRI. If aggressive care is sought and pt is to get trach and PEG then we would recommend GJ tube with J tube feedings to bypass stomach due to high residuals with TF. Pt remains on PPN with OGT clamped. Will await pts husbands wishes before proceeding with GJ tube. PLAN - Continue Bethanechol - Continue Reglan - Monitor stool - If pts wishes include aggressive care then would recommend IR consult for GJ tube - Supportive care This patient has been seen and examined by myself and Dr. Rosales and this note is written on his behalf (Ashleigh Benavides) Physician Comments As above, pending DNR status , will keep holding TF for now. (Nimo Rosales MD) Ashleigh Benavides Aug 02, 2017 13:38 Nimo Rosales MD Aug 02, 2017 14:22
[2017-08-02 16:23] LABS: AUTOMATED NEUTROPHIL # 4.3 TH/MM3 (1.8-7.7); BASOPHIL % 0.7 % (0.0-2.0); EOSINOPHIL # 0.3 TH/MM3 (0-0.4); EOSINOPHIL % 4.8 % (0.0-4.0); HEMATOCRIT 27.5 % (35.0-46.0); HEMOGLOBIN 8.8 GM/DL (11.6-15.3); LYMPH % 13.1 % (9.0-44.0); LYMPHOCYTE # 0.8 TH/MM3 (1.0-4.8); MEAN CELL VOLUME 87.2 FL (80.0-100.0); MEAN CORPUSCULAR HGB CONC 32.1 % (32.0-36.0); MEAN PLATELET VOLUME 7.3 FL (7.0-11.0); MONO % 9.3 % (0.0-8.0); MONOCYTE # 0.6 TH/MM3 (0-0.9); NEUT % 72.1 % (16.0-70.0); PLATELET COUNT 158 TH/MM3 (150-450); RED BLOOD COUNT 3.15 MIL/MM3 (4.00-5.30); RED CELL DISTRIBUTION WIDTH 16.5 % (11.6-17.2)
--- NOTE | 2017-08-02 17:26 | HHI.PR ---
Addendum to Inpatient Note Additional Information I will be OOT thru 08/09/2017 [employer] and [employer] willn cover for me for that period of time Please call them if any new ID issue occurs Geena Price MD Aug 02, 2017 17:26
--- NOTE | 2017-08-02 17:46 | HHI.CCPN ---
Subjective Remarks/Hospital Course I was asked to see patient this evening due to excessive somnolence. She was protecting her airway adequately but otherwise unresponsive except to loud voice or noxious stimulation. She was just started back on dialysis after a renal transplant failed. She has a past medical history of hypertension, hyperlipidemia, depression, morbid obesity, CKD status post renal transplant, renal cell carcinoma status post right nephrectomy, diabetes mellitus and sleep apnea. She presented to the ER 2 days ago with persistent vomiting despite home medication with Zofran and Phenergan. Patient also complains of generalized abdominal pain, worst in the epigastric region. She was discharged from the hospital on 07/13 where she was treated for acute on chronic kidney injury, generalized weakness and hyperkalemia. She is chronically on 2-3 L nasal cannula at home with a history of asthma. She denies any fever/chills. H&H 7.6 /23.8 which is approximately patient's baseline. BUN/creatinine 86/3.89, patient's creatinine 2.66 on 07/13. Chest x-ray showed bibasilar airspace disease with possible bilateral pleural effusions. CT of the abdomen/pelvis with new bibasilar consolidating infiltrate and 3 cm left renal mass which is unchanged from previous. Presently, her respiratory effort is satisfactory and she controls her airway. Major concern is for CO2 retention. 07/22: Currently orotracheally intubated. On low dose propofol drip at 10 mcg/ kg per minute. Arousable on the ventilator and appointments. Will initiate tube feeding today. 07/23: Afebrile. Patient received transfusion yesterday 1 unit of packed red blood cells hemoglobin stable this a.m.. Patient underwent hemodialysis yesterday approximately 4500 cc removed. Patient continues on sedation for ventilator synchrony. Chest x-ray appears to be worsening. CT brain revealed no abnormalities. 07/24: Afebrile. Chest x-ray showed complete near-complete opacification of the left lung, bronchoscopy planned. Patient noted to have pleural effusions right, ultrasound quantification of pleural effusion pending. Mucomyst initiated. 07/25: Patient's Hgb 6.1 this am, planned in one unit of PRBC. Patient noted large left effusion greater than 770 cc. Thoracentesis performed approximately 990 cc removed from left side. Chest x-ray pending post procedure. BAL performed yesterday, results pending. 07/26: Afebrile. JHONY globin stable as post transfusion yesterday. Patient noted to have high gastric residuals greater than 550 cc, Reglan initiated every 8 hours. IHD 4 L off yesterday. Chest x-ray continues to worsen. 07/27: Sedation vacation again performed today patient writhing around in bed not following commands, continues to appear altered. CT brain EEG ammonia level pending. Patient currently undergoing IHD with targeted to fluid removal of 4 L. KUB performed for persistent residuals no acute abnormality. 07/28: Neurologically the patient thrashing around on not following commands. CT performed negative, EEG negative. Patient noted to have high residuals, patient continues on Reglan 5 mg every 8 hours, and is having daily bowel movements . KUB does not reveal an ileus .GI has been consulted. 07/29: No acute changes overnight. The patient remains nothing by mouth secondary to high residuals. Consult with GI pending. CT of the abdomen and pelvis ordered. 07/30: CT of the abdomen and pelvis was negative no obstruction noted. The patient had a fecal containment device approximately 1 L out in 24 hours yesterday, however the patient is not tolerating tube feeds. Awaiting GI recommendations. The patient remains obtunded fentanyl infusion completely discontinued the patient remains on propofol for ventilator synchrony. Chest x- ray this a.m., left lung collapse appearance of mucous plugging emergency bronchoscopy , Mucomyst planned and possible chest tube placement depending on results. Begin PPN today 07/31: No acute events overnight. Daily sedation vacation, patient not responding, opens eyes spontaneously moves extremities spontaneously, thrashing around does not follow any commands. Palliative care has been consulted and is in discussions with regarding definition of goals of care. The patient underwent bronchoscopy for mucous plugging yesterday the patient has maintain oxygenation without any compromise throughout the day. Am improvement noted on chest x-ray post from the patient continues on Mucomyst for 2 additional days dosing. 08/01 Opacification L chest, appears to have volume loss. Thick cisneros secretions. Plan for therapeutic bronchoscopy. Dr. Lerma evaluated today and ordered MRI. Subjective 08/02: Objective Vital Signs Date Time Temp Pulse Resp B/P (MAP) Pulse Ox O2 Delivery O2 Flow Rate FiO2 08/02/17 16:00 98.3 69 18 156/69 (98) 96 08/02/17 16:00 35 Intake and Output 08/02/17 08/02/17 08/03/17 08:00 16:00 00:00 Intake Total 790 ml 95 ml Output Total 1900 ml Balance -1110 ml 95 ml Result Diagram: 08/02/17 1600 08/02/17 0758 Other Results Microbiology Date/Time Source Procedure Growth Status 07/20/17 21:46 Blood Peripheral Aerobic Blood Culture - Final NO GROWTH IN 5 DAYS Complete 07/20/17 21:46 Blood Peripheral Anaerobic Blood Culture - Final NO GROWTH IN 5 DAYS Complete 07/25/17 13:19 Fluid Pleural Fluid Fungal Smear - Final NO FUNGAL ELEMENTS SEEN. Resulted 07/25/17 13:19 Fluid Pleural Fluid Fungal Culture - Preliminary NO GROWTH IN 1 WEEK Resulted 07/24/17 16:20 Bronchial Washings Bronchial Gram Stain - Final Complete 07/24/17 16:20 Bronchial Washings Bronchial Bronchial Culture - Final NO GROWTH IN 48 HOURS. Complete 07/25/17 16:44 Urine Clean Catch Urine Culture - Final NO GROWTH IN 48 HOURS. Complete Imaging Last Impressions Chest X-Ray 08/02/17 0600 Signed Impressions: Service Date/Time: Wednesday, August 02, 2017 03:14 - CONCLUSION: Left basilar opacity is present may be due to a combination of consolidation and or pleural effusion not significantly changed, however pulmonary edema has progressed. Hawk Davis MD Brain MRI 08/02/17 0000 Signed Impressions: Service Date/Time: Wednesday, August 02, 2017 10:51 - CONCLUSION: 1. Limited examination due to motion artifact on essentially all the images presented. 2. Bilateral cortical atrophy and chronic white matter changes. 3. No definite acute intracranial pathology. 4. Chronic sinus disease. Marco A Abraham MD Abdomen X-Ray 07/30/17 0000 Signed Impressions: Service Date/Time: Sunday, July 30, 2017 13:16 - CONCLUSION: Limited visualization secondary to body habitus otherwise negative Sherif Diaz MD FACR Abdomen/Pelvis CT 07/29/17 0000 Signed Impressions: Service Date/Time: Sunday, July 30, 2017 00:53 - CONCLUSION: No evidence of bowel obstruction To Coates MD Head CT 07/27/17 0000 Signed Impressions: Service Date/Time: Friday, July 28, 2017 04:59 - CONCLUSION: No acute intracranial findings To Coates MD Thoracentesis Ultrasound 07/25/17 0000 Signed Impressions: Service Date/Time: Tuesday, July 25, 2017 12:49 - CONCLUSION: Uncomplicated ultrasound guided thoracentesis. Varghese Baker MD Chest Ultrasound 07/24/17 1600 Signed Impressions: Service Date/Time: Monday, July 24, 2017 17:18 - CONCLUSION: There is a moderate-sized right pleural effusion confirmed by ultrasound Rosalino Morgan MD Upper Extremity Ultrasound 07/23/17 0000 Signed Impressions: Service Date/Time: Sunday, July 23, 2017 07:48 - CONCLUSION: No evidence of deep venous thrombosis within the upper extremities. Florin Michelle MD Catheter Placement X-Ray 07/21/17 0000 Signed Impressions: Service Date/Time: Friday, July 21, 2017 14:47 - CONCLUSION: Uncomplicated PermaCath placement as above. Idris Diaz MD Objective Remarks GENERAL: 56-year-old super morbidly obese female, resting in bed orotracheally intubated and sedated SKIN: Warm and dry. HEAD: Atraumatic. Normocephalic. EYES: Pupils 2 mm, equal round and reactive. Extraocular motions intact ENT: . Endotracheal intubation NECK: Trachea midline. Supple, nontender, right IJ tunneled cuffed catheter in place for hemodialysis CARDIOVASCULAR: RRR. Distant. Without murmurs, clicks, gallops or rub. Unable to assess JVD secondary to body habitus RESPIRATORY:. Distant breath sounds throughout. Distance breath sounds left lower lobe. Scattered crackles throughout. No wheezing ABD: Obese, soft, nontender. healed incision R abdomen with firmness beneath likely related to scarring. Umbilical hernia. MUSCULOSKELETAL: 2+ peripheral edema left upper extremity, trace to 1+ right upper extremity chronic. Well perfused. NEUROLOGICAL: Eyes open, blinks to visual threat, does not track. Withdraws to pain in all 4 extremities A/P Assessment and Plan Neuro/Psych: Acute toxic metabolic encephalopathy Depression disorder NOS Altered mental status Currently on propofol at 10 mics grams per kilogram per minute for sedation/ analgesia while intubated Goal of RASS -2 Continue daily sedation vacation Sertraline was held when placed on linezolid. We'll continue to hold at this point in view of mental status. 07/27 CT brain - no acute abnormality 07/28 EEG moderate to severe encephalopathy. No epileptic activity. MRI brain 08/02 revealed no acute intracranial findings Neurology following, Dr. Dr. Lerma CV: Hypertension Dyslipidemia Currently on amlodipine 10 mg daily, hydralazine 50 mg every 8 hours metoprolol 50 mg by mouth twice a day for hypertension. Currently on Pravachol 40 mg daily for dyslipidemia. Aspirin 81 mg daily NS IVF discontinued 07/24 Resp: Acute on chronic hypoxemic respiratory failure Chronic home O2 dependency at 3 L at home History of asthma PRVC /08/14/34 Ventilator bundle Albuterol/ipratropium aerosols every 4 hours with albuterol aerosols every 2 hours. Dyspnea Continue budesonide 0.5/2 1 inhalation twice a day On fluticasone 44 g 2 puffs twice a day and salmeterol 50 g inhaled twice a day at home Percent hypertonic saline aerosols every 4 hours as mucolytic/thin secretions CXR 07/23 worsening effusions and bibasilar consolidation small right and moderate left pleural effusions 07/23 US guided marking of lungs 770cc on left, 276 on right 07/25 S/P right thoracentesis 990 cc removed 07/30-chest x-ray-left lung collapse- differential possible mucus plugging versus pleural effusion versus pneumothorax 07/30-Planned bronchoscopy, Mucomyst Bronchoscopy 08/02 with removal of large bloody mucous plug from the left mainstem. Plan CT thorax today On furosemide 20 mg IV bid. GI: Elevated BMI Hypoalbuminemia On Clinimix 4.25 42 ml/hr. with lipids 20% to 50 cc daily Tube feeds have been on hold due to high residuals. On metoclopramide 5 mg every 8 hours. Started bethanechol every 8 hours and if there is no improvement they would recommend IR consultation for GJ tube. Famotidine for GI prophylaxis Docusate sodium/senna 1 tablet twice a day, Lactulose 30 cc twice a day and Docusate suppository when necessary added for bowel regimen Dignishield in place since 07/25, 900 liquid output last 24 hours. RENAL: History renal cell cancer 3 cm left renal mass Status post right nephrectomy May 2017 for renal cell carcinoma Failing autologous renal transplant on chronic immunosuppression Maintain Grant catheter Currently on cyclosporine 100 mg twice a day, increased by nephrology on 07/26 following Cyclosporine level 46. CellCept 500 mg twice a day discontinued to to hx RCC. Cyclosporine level pending 08/03 Continue prednisone 5 mg po daily Intermittent hemodialysis per nephrology Monitor BMP Endo: Diabetes mellitus Hypothyroidism Currently on insulin detemir 5 units twice a day with Low dose aspart sliding scale insulin every 6 hours to maintain euglycemia and 5 units sliding scale insulin past 24 hours Continue levothyroxine 50 mcg by mouth daily for hypothyroidism. 07/23 TSH- WNL. Heme: Anemia of chronic kidney disease Continue iron sulfate 300 mg twice daily Serial hemoglobins daily. Maintain hemoglobin greater than 7 ID: Healthcare associated pneumonia 07/20 Blood cultures 2- NGTD CMV PCR - negative 07/22 Sputum- neg 07/22 Influenza -neg 07/24 Bronchial wash -neg Was followed by Dr. Price. Completed course of Zosyn and azithromycin and has been watched off antibiotics since 07/29. FEN: Hyperphosphatemia Calcium acetate on hold, npo. Replace electrolytes as clinically indicated MSK: Elevated BMI greater than 50 Charcot foot PT evaluate and treat Access - Utilize peripheral IVs Prophylaxis - GI - famotidine 10 mg per tube twice a day -DVT- SCD/heparin 5000 units subcutaneous every 8 hours. Palliative care has been consulted to define goals of care with . Patient says and likely would not want trach and PEG of poor prognosis from neurological standpoint. He would like to find out the results of the EEG and MRI and make a decision early next week. Level II follow-up Mahendra Barrios MD Aug 02, 2017 17:46
[2017-08-02] MEDS: CLINIMIX 4.25/5 (Cust.Renal Periph) 1000 mL- </= 42 mls/hr IV SCH ×8 (19:26)
[2017-08-02] MEDS: FAT EMULSION 20% INJ 250 ML (@10 mls/hr) IV SCH (19:26)
[2017-08-02] MEDS: PRAVASTATIN SOD 40 MG TAB PO SCH (19:27)
[2017-08-02] MEDS: RESP: SODIUM CHLORIDE 3% 4 ML NEB NEB SCH (20:08)
[2017-08-02] MEDS: ARTIFICIAL TEARS OPTH SOLN 15 ML BTL EACH EYE SCH (22:13)
[2017-08-03] VITALS (20 sets, daily range): BP systolic 106–161; BP diastolic 53–70; PULSE 62–97; RESP 14–19; TEMP 98.5–100.4; O2SAT 96–100
[2017-08-03] MEDS: PROPOFOL 1000 MG/100 ML IV PRN ×8 (02:07→23:33)
[2017-08-03] MEDS: RESP: ALBUTEROL 2.5 MG/IPRATROPIUM 0.5 MG NEB (SCH) NEB ×4 (02:58→20:03)
[2017-08-03] MEDS: RESP: SODIUM CHLORIDE 3% 4 ML NEB NEB SCH ×4 (02:58→20:03)
[2017-08-03] MEDS: ARTIFICIAL TEARS OPTH SOLN 15 ML BTL EACH EYE SCH ×3 (05:34→20:28)
[2017-08-03] MEDS: METOCLOPRAMIDE HCL 10 MG/2 ML VIAL IV PUSH SCH ×3 (05:34→23:24)
[2017-08-03] MEDS: LEVOTHYROXINE SODIUM 50 MCG TAB PO SCH (05:35)
[2017-08-03] MEDS: BETHANECHOL CHL 25 MG TAB PO SCH ×3 (05:35→20:26)
[2017-08-03] MEDS: HEPARIN SODIUM - SQ 10,000 UNITS/ML VIAL SQ SCH ×3 (05:35→20:26)
[2017-08-03] MEDS: INSULIN ASPART SUPPLEMENTAL SCALE SQ SCH ×4 (05:35→23:34)
[2017-08-03] MEDS: hydrALAZINE HCL 25 MG TAB PO SCH ×3 (05:35→23:24)
[2017-08-03 08:03] LABS: BASOPHIL % 0.6 % (0.0-2.0); EOSINOPHIL # 0.3 TH/MM3 (0-0.4); EOSINOPHIL % 4.9 % (0.0-4.0); HEMATOCRIT 24.3 % (35.0-46.0); HEMOGLOBIN 7.7 GM/DL (11.6-15.3); LYMPH % 15.8 % (9.0-44.0); LYMPHOCYTE # 0.9 TH/MM3 (1.0-4.8); MEAN CELL VOLUME 87.4 FL (80.0-100.0); MEAN CORPUSCULAR HEMOGLOBIN 27.7 PG (27.0-34.0); MEAN CORPUSCULAR HGB CONC 31.7 % (32.0-36.0); MEAN PLATELET VOLUME 7.4 FL (7.0-11.0); MONO % 10.5 % (0.0-8.0); MONOCYTE # 0.6 TH/MM3 (0-0.9); NEUT % 68.2 % (16.0-70.0); PLATELET COUNT 156 TH/MM3 (150-450); RED BLOOD COUNT 2.78 MIL/MM3 (4.00-5.30); RED CELL DISTRIBUTION WIDTH 16.4 % (11.6-17.2); WHITE BLOOD COUNT 5.9 TH/MM3 (4.0-11.0)
[2017-08-03] MEDS: CHLORHEXIDINE 0.12% (ORAL KIT) 15 ML CUP MT SCH ×2 (08:21→20:33)
[2017-08-03] MEDS: predniSONE 5 MG TAB PO SCH (08:22)
[2017-08-03] MEDS: CALCIUM/VITAMIN D 250 MG/125 U TAB PO SCH ×2 (08:22→17:49)
[2017-08-03] MEDS: amLODIPine BESYLATE 5 MG TAB PO SCH (08:22)
[2017-08-03] MEDS: FUROSEMIDE 20 MG/2 ML VIAL IV PUSH SCH ×2 (08:22→18:00)
[2017-08-03] MEDS: FAMOTIDINE 20 MG TAB PO SCH ×2 (08:22→20:27)
[2017-08-03] MEDS: METOPROLOL TARTRATE 50 MG TAB PO SCH ×2 (08:22→20:32)
[2017-08-03] MEDS: INSULIN DETEMIR 100 UNITS/ML VIAL SQ SCH ×2 (08:22→20:27)
[2017-08-03] MEDS: LACTULOSE SYRUP 20 GM/30 ML CUP PO SCH ×2 (08:23→20:26)
[2017-08-03] MEDS: ASPIRIN EC 81 MG TABEC PO SCH (08:23)
[2017-08-03] MEDS: FERROUS SULFATE 300 MG /5ML UDC PO SCH ×2 (08:23→20:26)
[2017-08-03] MEDS: SODIUM CHLORIDE 0.9% FLUSH 10 ML FLUSH IV FLUSH SCH ×2 (08:23→20:27)
[2017-08-03 08:29] LABS: ALBUMIN 2.3 GM/DL (3.4-5.0); AST (GOT) 11 U/L (15-37); BICARBONATE 24.2 MEQ/L (21.0-32.0); BLOOD UREA NITROGEN 37 MG/DL (7-18); CALCIUM 8.9 MG/DL (8.5-10.1); CHLORIDE 102 MEQ/L (98-107); CREATININE 2.13 MG/DL (0.50-1.00); GLOMERULAR FILTRATION RATE 24 ML/MIN (>89); GLUCOSE,RANDOM 156 MG/DL (74-106); MAGNESIUM 1.9 MG/DL (1.5-2.5); SODIUM (NA) 139 MEQ/L (136-145)
[2017-08-03 08:33] LABS: ALKALINE PHOSPHATASE 77 U/L (45-117); ALT (GPT) 12 U/L (10-53); PHOSPHORUS 4.4 MG/DL (2.5-4.9); TOTAL BILIRUBIN ADULT 0.5 MG/DL (0.2-1.0); TOTAL PROTEIN 5.5 GM/DL (6.4-8.2)
[2017-08-03] MEDS: RESP: BUDESONIDE 0.5 MG/2 ML NEB NEB SCH ×2 (08:35→20:03)
[2017-08-03] MEDS ORDERED: POTASSIUM CHLORIDE 20 MEQ PWD PACKET NG ONE (08:45)
--- NOTE | 2017-08-03 08:53 | HHI.CCPN ---
Subjective Remarks/Hospital Course I was asked to see patient this evening due to excessive somnolence. She was protecting her airway adequately but otherwise unresponsive except to loud voice or noxious stimulation. She was just started back on dialysis after a renal transplant failed. She has a past medical history of hypertension, hyperlipidemia, depression, morbid obesity, CKD status post renal transplant, renal cell carcinoma status post right nephrectomy, diabetes mellitus and sleep apnea. She presented to the ER 2 days ago with persistent vomiting despite home medication with Zofran and Phenergan. Patient also complains of generalized abdominal pain, worst in the epigastric region. She was discharged from the hospital on 07/13 where she was treated for acute on chronic kidney injury, generalized weakness and hyperkalemia. She is chronically on 2-3 L nasal cannula at home with a history of asthma. She denies any fever/chills. H&H 7.6 /23.8 which is approximately patient's baseline. BUN/creatinine 86/3.89, patient's creatinine 2.66 on 07/13. Chest x-ray showed bibasilar airspace disease with possible bilateral pleural effusions. CT of the abdomen/pelvis with new bibasilar consolidating infiltrate and 3 cm left renal mass which is unchanged from previous. Presently, her respiratory effort is satisfactory and she controls her airway. Major concern is for CO2 retention. 07/22: Currently orotracheally intubated. On low dose propofol drip at 10 mcg/ kg per minute. Arousable on the ventilator and appointments. Will initiate tube feeding today. 07/23: Afebrile. Patient received transfusion yesterday 1 unit of packed red blood cells hemoglobin stable this a.m.. Patient underwent hemodialysis yesterday approximately 4500 cc removed. Patient continues on sedation for ventilator synchrony. Chest x-ray appears to be worsening. CT brain revealed no abnormalities. 07/24: Afebrile. Chest x-ray showed complete near-complete opacification of the left lung, bronchoscopy planned. Patient noted to have pleural effusions right, ultrasound quantification of pleural effusion pending. Mucomyst initiated. 07/25: Patient's Hgb 6.1 this am, planned in one unit of PRBC. Patient noted large left effusion greater than 770 cc. Thoracentesis performed approximately 990 cc removed from left side. Chest x-ray pending post procedure. BAL performed yesterday, results pending. 07/26: Afebrile. JHONY globin stable as post transfusion yesterday. Patient noted to have high gastric residuals greater than 550 cc, Reglan initiated every 8 hours. IHD 4 L off yesterday. Chest x-ray continues to worsen. 07/27: Sedation vacation again performed today patient writhing around in bed not following commands, continues to appear altered. CT brain EEG ammonia level pending. Patient currently undergoing IHD with targeted to fluid removal of 4 L. KUB performed for persistent residuals no acute abnormality. 07/28: Neurologically the patient thrashing around on not following commands. CT performed negative, EEG negative. Patient noted to have high residuals, patient continues on Reglan 5 mg every 8 hours, and is having daily bowel movements . KUB does not reveal an ileus .GI has been consulted. 07/29: No acute changes overnight. The patient remains nothing by mouth secondary to high residuals. Consult with GI pending. CT of the abdomen and pelvis ordered. 07/30: CT of the abdomen and pelvis was negative no obstruction noted. The patient had a fecal containment device approximately 1 L out in 24 hours yesterday, however the patient is not tolerating tube feeds. Awaiting GI recommendations. The patient remains obtunded fentanyl infusion completely discontinued the patient remains on propofol for ventilator synchrony. Chest x- ray this a.m., left lung collapse appearance of mucous plugging emergency bronchoscopy , Mucomyst planned and possible chest tube placement depending on results. Begin PPN today 07/31: No acute events overnight. Daily sedation vacation, patient not responding, opens eyes spontaneously moves extremities spontaneously, thrashing around does not follow any commands. Palliative care has been consulted and is in discussions with regarding definition of goals of care. The patient underwent bronchoscopy for mucous plugging yesterday the patient has maintain oxygenation without any compromise throughout the day. Am improvement noted on chest x-ray post from the patient continues on Mucomyst for 2 additional days dosing. 08/01 Opacification L chest, appears to have volume loss. Thick cisneros secretions. Plan for therapeutic bronchoscopy. Dr. Lerma evaluated today and ordered MRI. 08/02: Resting comfortably bed in no acute distress. Plan for CT chest today. Afebrile. MRI brain reviewed with no acute findings. Subjective 08/03: Afebrile. Remains off tube feeding. Plan for CT chest today Objective Vital Signs Date Time Temp Pulse Resp B/P (MAP) Pulse Ox O2 Delivery O2 Flow Rate FiO2 08/03/17 08:36 99 30 08/03/17 06:00 64 08/03/17 04:00 98.5 18 157/70 (99) Intake and Output 08/03/17 08/03/17 08/03/17 07:59 15:59 23:59 Intake Total 944 ml Output Total 1700 ml Balance -756 ml Result Diagram: 08/03/17 0706 08/03/17 0706 Other Results Microbiology Date/Time Source Procedure Growth Status 07/20/17 21:46 Blood Peripheral Aerobic Blood Culture - Final NO GROWTH IN 5 DAYS Complete 07/20/17 21:46 Blood Peripheral Anaerobic Blood Culture - Final NO GROWTH IN 5 DAYS Complete 07/25/17 13:19 Fluid Pleural Fluid Fungal Smear - Final NO FUNGAL ELEMENTS SEEN. Resulted 07/25/17 13:19 Fluid Pleural Fluid Fungal Culture - Preliminary NO GROWTH IN 1 WEEK Resulted 07/24/17 16:20 Bronchial Washings Bronchial Gram Stain - Final Complete 07/24/17 16:20 Bronchial Washings Bronchial Bronchial Culture - Final NO GROWTH IN 48 HOURS. Complete 07/25/17 16:44 Urine Clean Catch Urine Culture - Final NO GROWTH IN 48 HOURS. Complete Imaging Last Impressions Chest X-Ray 08/02/17 0600 Signed Impressions: Service Date/Time: Wednesday, August 02, 2017 03:14 - CONCLUSION: Left basilar opacity is present may be due to a combination of consolidation and or pleural effusion not significantly changed, however pulmonary edema has progressed. Hawk Davis MD Brain MRI 08/02/17 0000 Signed Impressions: Service Date/Time: Wednesday, August 02, 2017 10:51 - CONCLUSION: 1. Limited examination due to motion artifact on essentially all the images presented. 2. Bilateral cortical atrophy and chronic white matter changes. 3. No definite acute intracranial pathology. 4. Chronic sinus disease. Marco A Abraham MD Abdomen X-Ray 07/30/17 0000 Signed Impressions: Service Date/Time: Sunday, July 30, 2017 13:16 - CONCLUSION: Limited visualization secondary to body habitus otherwise negative Sherif Diaz MD FACR Abdomen/Pelvis CT 07/29/17 0000 Signed Impressions: Service Date/Time: Sunday, July 30, 2017 00:53 - CONCLUSION: No evidence of bowel obstruction To Coates MD Head CT 07/27/17 0000 Signed Impressions: Service Date/Time: Friday, July 28, 2017 04:59 - CONCLUSION: No acute intracranial findings To Coates MD Thoracentesis Ultrasound 07/25/17 0000 Signed Impressions: Service Date/Time: Tuesday, July 25, 2017 12:49 - CONCLUSION: Uncomplicated ultrasound guided thoracentesis. Varghese Baker MD Chest Ultrasound 07/24/17 1600 Signed Impressions: Service Date/Time: Monday, July 24, 2017 17:18 - CONCLUSION: There is a moderate-sized right pleural effusion confirmed by ultrasound Rosalino Morgan MD Upper Extremity Ultrasound 07/23/17 0000 Signed Impressions: Service Date/Time: Sunday, July 23, 2017 07:48 - CONCLUSION: No evidence of deep venous thrombosis within the upper extremities. Florin Michelle MD Catheter Placement X-Ray 07/21/17 0000 Signed Impressions: Service Date/Time: Friday, July 21, 2017 14:47 - CONCLUSION: Uncomplicated PermaCath placement as above. Idris Diaz MD Objective Remarks GENERAL: 56-year-old super morbidly obese female, resting in bed orotracheally intubated and sedated SKIN: Warm and dry. HEAD: Atraumatic. Normocephalic. EYES: Pupils 2 mm, equal round and reactive. Extraocular motions intact ENT: . Endotracheal intubation NECK: Trachea midline. Supple, nontender, right IJ tunneled cuffed catheter in place for hemodialysis CARDIOVASCULAR: RRR. Distant. Without murmurs, clicks, gallops or rub. Unable to assess JVD secondary to body habitus RESPIRATORY:. Distant breath sounds throughout. Distance breath sounds left lower lobe. Scattered crackles throughout. No wheezing ABD: Obese, soft, nontender. healed incision R abdomen with firmness beneath likely related to scarring. Umbilical hernia. MUSCULOSKELETAL: 2+ peripheral edema left upper extremity, trace to 1+ right upper extremity chronic. Well perfused. NEUROLOGICAL: Eyes open, blinks to visual threat, does not track. Withdraws to pain in all 4 extremities A/P Assessment and Plan Neuro/Psych: Acute toxic metabolic encephalopathy Depression disorder NOS Altered mental status Currently on propofol at 40 mics grams per kilogram per minute for sedation/ analgesia while intubated Goal of RASS -2 Continue daily sedation vacation Sertraline was held when placed on linezolid. We'll continue to hold at this point in view of mental status. 07/27 CT brain - no acute abnormality 07/28 EEG moderate to severe encephalopathy. No epileptic activity. MRI brain 08/02 revealed no acute intracranial findings Neurology following, Dr. Dr. Lerma CV: Hypertension Dyslipidemia Currently on amlodipine 10 mg daily, hydralazine 50 mg every 8 hours metoprolol 50 mg by mouth twice a day for hypertension. Currently on Pravachol 40 mg daily for dyslipidemia. Aspirin 81 mg daily NS IVF discontinued 07/24 Resp: Acute on chronic hypoxemic respiratory failure Chronic home O2 dependency at 3 L at home History of asthma PRVC /08/14/34 Ventilator bundle Albuterol/ipratropium aerosols every 4 hours with albuterol aerosols every 2 hours. Dyspnea Continue budesonide 0.5/2 1 inhalation twice a day On fluticasone 44 g 2 puffs twice a day and salmeterol 50 g inhaled twice a day at home 3 Percent hypertonic saline aerosols every 4 hours as mucolytic/thin secretions CXR 07/23 worsening effusions and bibasilar consolidation small right and moderate left pleural effusions 07/23 US guided marking of lungs 770cc on left, 276 on right 07/25 S/P right thoracentesis 990 cc removed 07/30-chest x-ray-left lung collapse- differential possible mucus plugging versus pleural effusion versus pneumothorax 07/30-Planned bronchoscopy, Mucomyst Bronchoscopy 08/02 with removal of large bloody mucous plug from the left mainstem. Plan CT thorax 08/03 On furosemide 20 mg IV bid. GI: Elevated BMI Hypoalbuminemia On Clinimix 4.25 50 ml/hr. with lipids 20% 250 cc daily - discontinued lipids while on propofol Tube feeds have been on hold due to high residuals. On metoclopramide 5 mg every 8 hours. Started bethanechol every 8 hours and if there is no improvement they would recommend IR consultation for GJ tube. Famotidine for GI prophylaxis Docusate sodium/senna 1 tablet twice a day, Lactulose 30 cc twice a day and Docusate suppository when necessary added for bowel regimen Dignishield in place since 07/25, 900 liquid output last 24 hours. RENAL: History renal cell cancer 3 cm left renal mass Status post right nephrectomy May 2017 for renal cell carcinoma Failing autologous renal transplant on chronic immunosuppression Maintain Grant catheter Currently on cyclosporine 100 mg twice a day, increased by nephrology on 07/26 following Cyclosporine level 46. CellCept 500 mg twice a day discontinued to to hx RCC. Cyclosporine level pending 08/03 Continue prednisone 5 mg po daily Intermittent hemodialysis per nephrology Monitor BMP Endo: Diabetes mellitus Hypothyroidism Currently on insulin detemir 5 units twice a day with Low dose aspart sliding scale insulin every 6 hours to maintain euglycemia and 5 units sliding scale insulin past 24 hours Continue levothyroxine 50 mcg by mouth daily for hypothyroidism. 07/23 TSH- WNL. Heme: Anemia of chronic kidney disease Continue iron sulfate 300 mg twice daily Serial hemoglobins daily. Maintain hemoglobin greater than 7 ID: Healthcare associated pneumonia 07/20 Blood cultures 2- NGTD CMV PCR - negative 07/22 Sputum- neg 07/22 Influenza -neg 07/24 Bronchial wash -neg Was followed by Dr. Price. Completed course of Zosyn and azithromycin and has been watched off antibiotics since 07/29. FEN: Hypokalemia 60 mEq KCL IV was 1, 20 mEq by tube once. Recheck in a.m. Calcium acetate for previous hypernatremia 667 mg 3 times a day on hold, npo. Replace electrolytes as clinically indicated MSK: Elevated BMI greater than 50 Charcot foot PT evaluate and treat Access - Utilize peripheral IVs Prophylaxis - GI - famotidine 10 mg per tube twice a day -DVT- SCD/heparin 5000 units subcutaneous every 8 hours. Palliative care has been consulted to define goals of care with . Patient says and likely would not want trach and PEG of poor prognosis from neurological standpoint. He wishes to review the results of the EEG and MRI brain and discuss with neurology prognosis and make a decision early next week. Level II follow-up Mahendra Barrios MD Aug 03, 2017 08:53
[2017-08-03] MEDS: POTASSIUM CHLOR 10 MEQ PREMIX 100 ML IV SCH ×6 (08:59→21:10)
--- NOTE | 2017-08-03 09:26 | HHI.PR ---
Review/Management Diagnosis metabolic encephalopathy Diagnosis/Plan: Subjective Subjective Comments No acute events reported Active Medications Current Medications Medications (Trade) Dose Ordered Sig/Nadir Route Start Time Stop Time Status Last Admin (NS Flush) 2 ml UNSCH PRN IV FLUSH 07/19/17 18:00 07/29/17 20:19 (NS Flush) 2 ml BID IV FLUSH 07/19/17 21:00 08/03/17 08:23 (Narcan Inj) 0.4 mg UNSCH PRN IV PUSH 07/19/17 18:00 (D50w (Vial) Inj) 50 ml UNSCH PRN IV PUSH 07/19/17 18:00 07/30/17 08:32 (Glucagon Inj) 1 mg UNSCH PRN OTHER 07/19/17 18:00 (Norvasc) 10 mg DAILY PO 07/20/17 09:00 08/03/17 08:22 (Ecotrin Ec) 81 mg DAILY PO 07/20/17 09:00 08/02/17 08:54 (Pepcid) 10 mg BID PO 07/19/17 21:00 08/03/17 08:22 (Flovent Hfa 44 Mcg Inh) 2 puff BID INH 07/19/17 21:00 Future Hold 07/21/17 08:40 (Apresoline) 50 mg Q8HR PO 07/19/17 22:00 08/03/17 05:35 (Synthroid) 50 mcg DAILY@0600 PO 07/20/17 06:00 08/03/17 05:35 (Lopressor) 50 mg BID PO 07/19/17 21:00 08/03/17 08:22 (Serevent Diskus Inh) 50 mcg BID INH 07/19/17 21:00 Future Hold 07/21/17 08:40 (Zoloft) 200 mg DAILY PO 07/20/17 09:00 Future Hold 07/20/17 08:30 (Oscal-D 250-125) 250 mg BIDPC PO 07/20/17 09:00 08/03/17 08:22 (Pravachol) 40 mg HS PO 07/19/17 21:00 08/02/17 19:27 (Heparin Inj) 5,000 units Q8HR SQ 07/19/17 22:00 Future hold 08/03/17 05:35 (Morphine Inj) 2 mg Q4HR PRN IV PUSH 07/20/17 06:45 07/21/17 08:42 (Deltasone) 5 mg DAILY PO 07/21/17 09:00 08/03/17 08:22 Sodium Chloride 1,000 ml @ 0 mls/hr Q0M PRN OTHER 07/20/17 13:19 (Heparin Inj) 8,000 units UNSCH PRN IV FLUSH 07/20/17 13:30 Sodium Chloride 1,000 ml @ 200 mls/hr Q5H PRN IV 07/20/17 13:19 07/27/17 13:52 Sodium Chloride 1,000 ml @ 0 mls/hr Q0M PRN OTHER 07/20/17 13:19 (Mannitol Inj) 12.5 gm UNSCH PRN IV 07/20/17 13:30 07/27/17 13:54 Albumin Human 100 ml @ 60 mls/hr UNSCH PRN IV 07/20/17 13:30 07/27/17 13:54 (NS Flush) 5 ml UNSCH PRN IV FLUSH 07/20/17 13:30 (Heparin Inj) UNSCH PRN .XX 07/20/17 13:30 07/27/17 13:52 (Gentamicin (Dialysis) Inj) 20 mg UNSCH PRN OTHER 07/20/17 13:30 07/27/17 13:53 (Zofran Inj) 4 mg UNSCH PRN IV PUSH 07/20/17 13:30 (Tylenol) 650 mg UNSCH PRN PO 07/20/17 13:30 (Benadryl) 25 mg UNSCH PRN PO 07/20/17 13:30 (Nitrostat Sl) 0.4 mg UNSCH PRN SL 07/20/17 13:30 (Catapres) 0.1 mg UNSCH PRN PO 07/20/17 13:30 (Epogen Inj) 10,000 units UNSCH PRN IV PUSH 07/20/17 13:30 07/27/17 13:53 (Gelfoam 12 Mm/7 Mm Top) 1 foam UNSCH PRN TOP 07/20/17 13:30 (NS Flush) UNSCH PRN IV FLUSH 07/21/17 14:45 (Heparin Inj) UNSCH PRN IV FLUSH 07/21/17 14:45 Miscellaneous Information Patient in critical care unit? Ass... Q361D .XX 07/21/17 21:00 07/21/17 21:00 (Peridex 0.12% Liq) 15 ml BID@08,20 MT 07/22/17 08:00 08/03/17 08:21 (NovoLOG SUPPLEMENTAL SCALE) 1 Q6HR SQ 07/22/17 12:00 08/03/17 05:35 (Albuterol Neb) 2.5 mg Q2HR NEB PRN NEB 07/22/17 07:45 07/28/17 08:23 (Pulmicort Respule Neb) 0.5 mg Q12HR NEB NEB 07/22/17 09:00 08/03/17 08:35 (Levemir Inj) 5 units Q12HR SQ 07/22/17 09:00 08/03/17 08:22 (Phoslo) 667 mg TID PO 07/22/17 09:00 Future Hold 07/28/17 08:36 (Apresoline Inj) 10 mg Q1HR PRN IV PUSH 07/22/17 08:15 07/23/17 02:32 (Trandate Inj) 10 mg Q1HR PRN IV PUSH 07/22/17 08:15 (Nitroglycerin 2% Oint) 2 inch Q6HR PRN TOPICAL 07/22/17 08:15 (Neoral) 100 mg BID@,18 PO 07/26/17 18:00 08/03/17 05:35 (Reglan Inj) 5 mg Q8HR IV PUSH 07/26/17 22:00 08/03/17 05:34 (Lactulose Liq) 30 ml BID PO 07/28/17 21:00 08/03/17 08:23 (Dulcolax Supp) 10 mg DAILY PRN RECTAL 07/28/17 18:00 Sodium Chloride 5.5 meq/Sodium Acetate 29.5 meq/ Potassium Chloride 20 meq/ Magnesium Chloride 5 meq/ Calcium Chloride 4.5 meq/ Multivitamins 10 ml/Folic Acid 1 mg/Amino Acids/ Dextrose 1,042.1719 ml @ 50 mls/hr [id number] IV 07/30/17 20:00 08/02/17 19:26 (Lasix Inj) 20 mg BID@09,18 IV PUSH 07/30/17 18:00 08/03/17 08:22 Propofol 100 ml @ 5.4 mls/hr TITRATE PRN IV 07/31/17 00:45 08/03/17 08:23 (Ferrous Sulfate Liq) 300 mg BID PO 07/31/17 21:00 08/03/17 08:23 (Urecholine) 25 mg Q8HR PO 08/01/17 22:00 08/03/17 05:35 (Duoneb Neb) 1 ampule Q6HR NEB NEB 08/02/17 22:00 08/03/17 08:36 (Tears Naturale Opth Soln) 1 drop Q8HR EACH EYE 08/02/17 22:00 08/03/17 05:34 (Sodium Chloride 3% Neb) 2 ml Q6HR NEB NEB 08/02/17 22:00 08/07/17 21:59 08/03/17 08:35 Potassium Chloride 100 ml @ 100 mls/hr Q1H IV 08/03/17 08:45 08/03/17 14:44 08/03/17 08:59 Magnesium Sulfate/ Dextrose 100 ml @ 100 mls/hr Q1H IV 08/03/17 09:00 08/03/17 10:59 Allergies Allergies Coded Allergies adhesive (Unverified Allergy, Severe, SILK TAPE, 07/07/17) NSAIDS (Non-Steroidal Anti-Inflamma (Verified Adverse Reaction, Severe, Nausea /Vomiting, 07/07/17) Exam I&O / VS Vital Signs Date Time Temp Pulse Resp B/P (MAP) Pulse Ox O2 Delivery O2 Flow Rate FiO2 08/03/17 08:36 99 30 08/03/17 06:00 64 08/03/17 04:14 100 30 08/03/17 04:00 98.5 69 18 157/70 (99) 97 08/03/17 04:00 30 08/03/17 04:00 69 08/03/17 02:00 62 08/03/17 00:17 100 35 08/03/17 00:00 35 08/03/17 00:00 65 08/03/17 00:00 98.7 65 18 161/67 (98) 97 08/02/17 22:00 64 08/02/17 20:07 100 35 08/02/17 20:00 68 08/02/17 20:00 98.5 68 18 144/65 (91) 100 08/02/17 20:00 35 08/02/17 18:00 61 08/02/17 16:00 98.3 69 18 156/69 (98) 96 08/02/17 16:00 70 08/02/17 16:00 35 08/02/17 15:59 97 35 08/02/17 14:00 58 08/02/17 12:48 97 35 08/02/17 12:00 35 08/02/17 12:00 98.1 57 18 129/62 (84) 96 08/02/17 12:00 57 08/02/17 10:50 100 100 08/02/17 10:00 61 Respiratory: Lungs CTA, Non-labored respirations, BS equal Cardiology: Normal rate, Regular Rhythm Musculoskeletal: Swelling Exam Comments nonresponsive Cn intact MOTOR no focal deficit Objective Radiology Results MRI brain--motion artifact. No acute changes noted. No sign of cva Micro and Labs Laboratory Tests Test 08/02/17 16:00 08/03/17 07:06 White Blood Count 6.0 5.9 Red Blood Count 3.15 2.78 Hemoglobin 8.8 7.7 Hematocrit 27.5 24.3 Mean Corpuscular Volume 87.2 87.4 Mean Corpuscular Hemoglobin 28.0 27.7 Mean Corpuscular Hemoglobin Concent 32.1 31.7 Red Cell Distribution Width 16.5 16.4 Platelet Count 158 156 Mean Platelet Volume 7.3 7.4 Neutrophils (%) (Auto) 72.1 68.2 Lymphocytes (%) (Auto) 13.1 15.8 Monocytes (%) (Auto) 9.3 10.5 Eosinophils (%) (Auto) 4.8 4.9 Basophils (%) (Auto) 0.7 0.6 Neutrophils # (Auto) 4.3 4.0 Lymphocytes # (Auto) 0.8 0.9 Monocytes # (Auto) 0.6 0.6 Eosinophils # (Auto) 0.3 0.3 Basophils # (Auto) 0.0 0.0 CBC Comment DIFF FINAL DIFF FINAL Differential Comment Blood Urea Nitrogen 37 Creatinine 2.13 Random Glucose 156 Total Protein 5.5 Albumin 2.3 Calcium Level 8.9 Phosphorus Level 4.4 Magnesium Level 1.9 Alkaline Phosphatase 77 Aspartate Amino Transf (AST/SGOT) 11 Alanine Aminotransferase (ALT/SGPT) 12 Total Bilirubin 0.5 Sodium Level 139 Potassium Level 2.9 Chloride Level 102 Carbon Dioxide Level 24.2 Anion Gap 13 Estimat Glomerular Filtration Rate 24 Date/Time Source Procedure Growth Status 07/20/17 21:46 Blood Peripheral Aerobic Blood Culture - Final NO GROWTH IN 5 DAYS Complete 07/20/17 21:46 Blood Peripheral Anaerobic Blood Culture - Final NO GROWTH IN 5 DAYS Complete 07/25/17 13:19 Fluid Pleural Fluid Fungal Smear - Final NO FUNGAL ELEMENTS SEEN. Resulted 07/25/17 13:19 Fluid Pleural Fluid Fungal Culture - Preliminary NO GROWTH IN 1 WEEK Resulted 07/24/17 16:20 Bronchial Washings Bronchial Gram Stain - Final Complete 07/24/17 16:20 Bronchial Washings Bronchial Bronchial Culture - Final NO GROWTH IN 48 HOURS. Complete 07/25/17 16:44 Urine Clean Catch Urine Culture - Final NO GROWTH IN 48 HOURS. Complete Aneesh Lerma MD PhD Aug 03, 2017 09:26
--- NOTE | 2017-08-03 09:46 | HHI.NPPN ---
Subjective Renal Failure: Chronic, Acute Interval History Remains intubated. Unresponsive. On PPN. Renal function is stable, slightly better. (Ania Sampson) Review of Systems General General Remarks unable to evaluate (Ania Sampson) Cardiovascular Cardiac: Edema (Ania Sampson) Objective Data Data Vital Signs Date Time Temp Pulse Resp B/P (MAP) Pulse Ox O2 Delivery O2 Flow Rate FiO2 08/03/17 08:36 99 30 08/03/17 06:00 64 08/03/17 04:14 100 30 08/03/17 04:00 98.5 69 18 157/70 (99) 97 08/03/17 04:00 30 08/03/17 04:00 69 08/03/17 02:00 62 08/03/17 00:17 100 35 08/03/17 00:00 35 08/03/17 00:00 65 08/03/17 00:00 98.7 65 18 161/67 (98) 97 08/02/17 22:00 64 08/02/17 20:07 100 35 08/02/17 20:00 68 08/02/17 20:00 98.5 68 18 144/65 (91) 100 08/02/17 20:00 35 08/02/17 18:00 61 08/02/17 16:00 98.3 69 18 156/69 (98) 96 08/02/17 16:00 70 08/02/17 16:00 35 08/02/17 15:59 97 35 08/02/17 14:00 58 08/02/17 12:48 97 35 08/02/17 12:00 35 08/02/17 12:00 98.1 57 18 129/62 (84) 96 08/02/17 12:00 57 08/02/17 10:50 100 100 08/02/17 10:00 61 (Ania Sampson) -: 08/03/17 0706 08/03/17 0706 Imaging Last 72 hours Impressions Chest X-Ray 08/02/17 0600 Signed Impressions: Service Date/Time: Wednesday, August 02, 2017 03:14 - CONCLUSION: Left basilar opacity is present may be due to a combination of consolidation and or pleural effusion not significantly changed, however pulmonary edema has progressed. Hawk Davis MD Brain MRI 08/02/17 0000 Signed Impressions: Service Date/Time: Wednesday, August 02, 2017 10:51 - CONCLUSION: 1. Limited examination due to motion artifact on essentially all the images presented. 2. Bilateral cortical atrophy and chronic white matter changes. 3. No definite acute intracranial pathology. 4. Chronic sinus disease. Marco A Abraham MD Chest X-Ray 08/01/17 0600 Signed Impressions: Service Date/Time: Tuesday, August 01, 2017 03:42 - CONCLUSION: Worsening left hemithorax opacification may be due to consolidation or pleural effusion otherwise not significantly changed. Hawk Davis MD Chest X-Ray 08/01/17 0000 Signed Impressions: Service Date/Time: Tuesday, August 01, 2017 18:12 - CONCLUSION: 1. Persistent left greater than right basilar consolidation. Right side is slightly improved. 2. Small to moderate left pleural effusion. 3. No pneumothorax. To [place] MD Tubes & Lines: Perma-Cath, Grant Tubes & Lines Comment rectal bag Drip Comment Propofol, PPN (Ania Sampson B. SOFTWARE TEST ENGINEER) Physical Exam General Appearance: Obese Appearance Remarks morbidly obese, intubated, unresponsive. (Ania Sampson B. SOFTWARE TEST ENGINEER) Eyes Eye Exam: Pupils Equal (Ania Sampson B. SOFTWARE TEST ENGINEER) Neck Neck Exam: Neck Supple (Ania Sampson B. SOFTWARE TEST ENGINEER) Pulmonary Resp Exam: Crackles, Rhonchi, Decreased Bases, Diminished Breath Sounds Resp Remarks vented lung sounds (Ania Sampson B. SOFTWARE TEST ENGINEER) Cardiology CV Exam: Regular, Normal Sinus Rhythm (Ania Sampson B. SOFTWARE TEST ENGINEER) Gastrointestinal/Abdomen GI Exam: Soft, Non-Tender, Bowel Sounds Present (Ania Sampson B. SOFTWARE TEST ENGINEER) Genitourinary Remarks dark urine (Ania Sampson B. SOFTWARE TEST ENGINEER) Musculoskeletal MS Exam: Normal Tone, Unable to Ambulate (Ania Sampson B. SOFTWARE TEST ENGINEER) Integumentary Skin Exam: Warm, Dry (Ania Sampson B. SOFTWARE TEST ENGINEER) Extremeties Extremities Exam: Moderate Edema, Pitting Edema, Dependent Edema Extremeties Remarks upper extremity edema (Ania Sampson) Neurologic Neuro Exam: Unresponsive, Sedated (Ania Sampson) Assessment/Plan Assessment Summary: Anemia of CKD, Hypertension, Diabetes Mellitus Problem List: (1) EDITH (acute kidney injury) ICD Codes: N17.9 - Acute kidney failure, unspecified Status: Acute Plan: Has hx of renal transplant in 2000 and a hx of nephrectomy due to renal cell CA in 2017 Has underlying stage IV CKD. She may have suffered ATN or worsening chronic graft loss. Urine output has improved. HD initiated on 07/21, last HD on 07/29. Will defer dialysis again today. Monitor urine output and renal function. Avoid nephrotoxic agents. Repeat labs in AM. She has upper body edema, chest xray reviewed. On Lasix BID. (2) H/O kidney transplant ICD Codes: Z94.0 - Kidney transplant status Status: Acute Plan: Patient has a failing allograft Continue immunosuppression, she is on prednisone and cyclosporine. Cellcept has been discontinued due to hx of RCC. Monitor cyclosporine level, it is currently low. Dosage increased to 100 mg BID I will repeat Cyclosporine level again. (3) Diabetes ICD Codes: E11.9 - Type 2 diabetes mellitus without complications Status: Chronic Plan: Monitor glucose, maintain 140-180 mg/dL this admission (4) HTN (hypertension) ICD Codes: I10 - Essential (primary) hypertension Status: Chronic Plan: Continue medications as ordered, titrate as needed (5) Pneumonia ICD Codes: J18.9 - Pneumonia, unspecified organism Plan: Off antibiotics. ID following Chest xray (serial) reviewed s/p left thoracentesis last week, 975 ml removed 08/02 had repeat bronch with mucous plug removal. ON 30% FiO2 continue vent care, will need tracheostomy soon. (Ania Sampson) Plan patient was seen and examined. Renal function is stable. Non oliguric. Replace potassium. Repeat Cyclosporine level is also low. Increase dose to 125 mg PO BID. (Antonio Velez MD) Problem Qualifiers (1) Diabetes: Ania Sampson Aug 03, 2017 09:46 Antonio Velez MD Aug 03, 2017 14:39
--- NOTE | 2017-08-03 10:10 | HHI.GIFU ---
Subjective Remarks pt in bed, intubated. still with watery dark brown stool. TF held, on PPN. (Karla Gomes) Objective Vitals I&O Vital Signs Date Time Temp Pulse Resp B/P (MAP) Pulse Ox O2 Delivery O2 Flow Rate FiO2 08/03/17 08:36 99 30 08/03/17 06:00 64 08/03/17 04:14 100 30 08/03/17 04:00 98.5 69 18 157/70 (99) 97 08/03/17 04:00 30 08/03/17 04:00 69 08/03/17 02:00 62 08/03/17 00:17 100 35 08/03/17 00:00 35 08/03/17 00:00 65 08/03/17 00:00 98.7 65 18 161/67 (98) 97 08/02/17 22:00 64 08/02/17 20:07 100 35 08/02/17 20:00 68 08/02/17 20:00 98.5 68 18 144/65 (91) 100 08/02/17 20:00 35 08/02/17 18:00 61 08/02/17 16:00 98.3 69 18 156/69 (98) 96 08/02/17 16:00 70 08/02/17 16:00 35 08/02/17 15:59 97 35 08/02/17 14:00 58 08/02/17 12:48 97 35 08/02/17 12:00 35 08/02/17 12:00 98.1 57 18 129/62 (84) 96 08/02/17 12:00 57 08/02/17 10:50 100 100 I/O 08/02/17 08/02/17 08/02/17 08/03/17 08/03/17 08/03/17 07:00 15:00 23:00 07:00 15:00 23:00 Intake Total 890 ml 95 ml 1692.1719 ml 1044 ml Output Total 1900 ml 1900 ml 1700 ml Balance -1010 ml 95 ml -207.8281 ml -656 ml IV Total 770 ml 95 ml 1492.1719 ml 924 ml Other 120 ml 200 ml 120 ml Output Urine Total 1300 ml 1600 ml 1300 ml Stool Total 600 ml 300 ml 400 ml Laboratory Laboratory Tests Test 08/02/17 16:00 08/03/17 07:06 White Blood Count 6.0 5.9 Red Blood Count 3.15 2.78 Hemoglobin 8.8 7.7 Hematocrit 27.5 24.3 Mean Corpuscular Volume 87.2 87.4 Mean Corpuscular Hemoglobin 28.0 27.7 Mean Corpuscular Hemoglobin Concent 32.1 31.7 Red Cell Distribution Width 16.5 16.4 Platelet Count 158 156 Mean Platelet Volume 7.3 7.4 Neutrophils (%) (Auto) 72.1 68.2 Lymphocytes (%) (Auto) 13.1 15.8 Monocytes (%) (Auto) 9.3 10.5 Eosinophils (%) (Auto) 4.8 4.9 Basophils (%) (Auto) 0.7 0.6 Neutrophils # (Auto) 4.3 4.0 Lymphocytes # (Auto) 0.8 0.9 Monocytes # (Auto) 0.6 0.6 Eosinophils # (Auto) 0.3 0.3 Basophils # (Auto) 0.0 0.0 CBC Comment DIFF FINAL DIFF FINAL Differential Comment Blood Urea Nitrogen 37 Creatinine 2.13 Random Glucose 156 Total Protein 5.5 Albumin 2.3 Calcium Level 8.9 Phosphorus Level 4.4 Magnesium Level 1.9 Alkaline Phosphatase 77 Aspartate Amino Transf (AST/SGOT) 11 Alanine Aminotransferase (ALT/SGPT) 12 Total Bilirubin 0.5 Sodium Level 139 Potassium Level 2.9 Chloride Level 102 Carbon Dioxide Level 24.2 Anion Gap 13 Estimat Glomerular Filtration Rate 24 Date/Time Source Procedure Growth Status 07/20/17 21:46 Blood Peripheral Aerobic Blood Culture - Final NO GROWTH IN 5 DAYS Complete 07/20/17 21:46 Blood Peripheral Anaerobic Blood Culture - Final NO GROWTH IN 5 DAYS Complete 07/25/17 13:19 Fluid Pleural Fluid Fungal Smear - Final NO FUNGAL ELEMENTS SEEN. Resulted 07/25/17 13:19 Fluid Pleural Fluid Fungal Culture - Preliminary NO GROWTH IN 1 WEEK Resulted 07/24/17 16:20 Bronchial Washings Bronchial Gram Stain - Final Complete 07/24/17 16:20 Bronchial Washings Bronchial Bronchial Culture - Final NO GROWTH IN 48 HOURS. Complete 07/25/17 16:44 Urine Clean Catch Urine Culture - Final NO GROWTH IN 48 HOURS. Complete Physical Exam HEENT: Normocephalic; atraumatic- ETT, OGT clamped CHEST: Diminished CARDIAC: RRR ABDOMEN: Soft, morbidly obese, bowel sounds active x 4, rectal bag with dark, liquid stool EXTREMITIES: Peripheral edema SKIN: Normal; no rash; no jaundice. HEEL LAYER: Sedated on vent (Karla Gomes) Assessment and Plan Plan ASSESSMENT - High residuals on TF- per RN pts TF was stopped on night/Monday morning for high residuals, she did not tolerate trickle feeds. Rectal bag collecting liquid stool. Bowel sounds active. KUB (07/30) showed no signs of ileus or obstruction, however, limited visualization secondary to body habitus. Pt remains on Reglan 5mg q8hr. Unable to increase dosage due to impaired kidneys. OGT remains clamped. Pt currently receiving nutrition through PPN. Will add Bethanechol. If no improvement with Bethanechol then would recommend GJ tube by IR for J-tube feedings. 08/02 Pts TF has not been restarted. Per palliative care pts husbands wishes regarding aggressive care will be determined following neurology recommendations after EEG and brain MRI. If aggressive care is sought and pt is to get trach and PEG then we would recommend GJ tube with J tube feedings to bypass stomach due to high residuals with TF. Pt remains on PPN with OGT clamped. Will await pts husbands wishes before proceeding with GJ tube. 08/03/17 - Family to decide on goals of care. as above, if aggressive GJ recommended with J tube feedings. PLAN - Continue Bethanechol - Continue Reglan - Monitor stool - If pts wishes include aggressive care then would recommend IR consult for GJ tube - GI will sign off. please reconsult if needed - Supportive care This patient has been seen and examined by myself and Dr. Rosales and this note is written on his behalf (Karla Gomes) Physician Comments Seen and examined, plan as above. Please notify us if needed. (Nimo Rosales MD) Karla Gomes Aug 03, 2017 10:10 Nimo Rosales MD Aug 03, 2017 14:26
[2017-08-03] MEDS: MAGNESIUM SULFATE 1 GM PREMIX 100 ML IV SCH ×2 (11:56→12:11)
[2017-08-03 12:13] LABS: CYCLOSPORINE 68 COMMENT
--- NOTE | 2017-08-03 14:31 | MG ---
cc: PAULINA COLUNGA M.D. Lab No: [id number] Date: 08/03/2017 Age: 56 Sex: F Race: 1960 [address] Barrios. In room 526, intubated on Diprivan at 20 mcg then turned off 6 minutes into the EEG. Hyperventilation omitted. Photic done. Does not follow commands. Moves all extremities but not to command. MRI is limited due to artifact but shows atrophy. Last EEG on the 28 of July showed moderate to severe encephalopathy with spindles, the repeat EEG. Admitted with excessive somnolence, unresponsive except to loud voice and noxious stimuli, history of hypertension, depression, morbid obesity, diabetes, renal cell carcinoma, sleep apnea, renal transplant, on Diprivan, Lasix, Neoral, Levemir, Norvasc, Synthroid and others. Diprivan stopped 6 minutes into the study. DESCRIPTION OF RECORD There is overall background slowing predominately of 3-4 Hz at times, sometimes slower. No epileptiform features. There is a lot of eye movement artifact. Diprivan is turned off by epoch 34. Slowing still continued times 3, 2 Hz, 4 Hz variable. No significant driving response noted. The patient was asked during the study to wiggle her toes, she did not, eyes were still open but did not follow commands. IMPRESSION Abnormal EEG due to moderate background slowing consistent with ongoing encephalopathic process. No evidence of any epileptic activity. Clinical correlation. Paulina Colunga MD DF/TLL /1:10 PM /1:53 PM
--- NOTE | 2017-08-03 15:21 | HHI.HCPN ---
Reason for visit a. To assist with evaluation and management of symptoms including: Shortness of breath, pain, debility. b. To assist medical decision maker(s) with: better understanding of current medical conditions; weighing benefits/burdens of medical treatment options; making medical treatment decisions. . Subjective/Interval History Palliative care follow up for further clarifications of goals of care. Patient remains endotracheally intubated on mechanical ventilation, persistent encephalopathy. Neurology following, MRI of the brain negative for acute process, EEG revealing ongoing encephalopathic process. Patient with persistent pulmonary congestion, pending CT of chest. Tube feedings remain on hold secondary to high residuals. GI following, likely diabetes gastroparesis. Renal function improving, good urinary output. Nephrology following, hemodialysis deferred. Max temperature 100.4, stable hemodynamically. Case discussed with Dr. Barrios. Patient not likely to medically extubate given persistent encephalopathy as well as multiple ongoing chronic comorbidities, acute events and baseline physical deconditioning. Telephone conversation with patient's Shantanu Dewey. Medical update provided. Reviewed clinical course and current medical management. Continued trach and PEG conversation given patient's unchanged neurological status. reiterated that patient's quality of life is his main priority, not likely to proceed with trach and PEG given overall poor prognosis for meaningful recovery. Introduced compassionate withdrawal of life support. receptive to ongoing goals of care conversation, meeting with palliative care 08/04/17 at 10: AM. . Family/friend interactions See interval note. Advance Directives Living Will: Never completed Health Care Surrogate: Never completed Durable Power of Campaign Developer: Never completed Advance Directive Specifics Health Care Surrogate(s): No advance directives completed. As per [place] statute, healthcare proxy decision-making falls to patient's Shantanu Dewey. . Significant change in goals: Goals of care remain unchanged. . Objective Vital Signs Date Time Temp Pulse Resp B/P (MAP) Pulse Ox O2 Delivery O2 Flow Rate FiO2 08/03/17 13:31 100 30 08/03/17 12:00 74 08/03/17 12:00 100.4 69 18 157/70 (99) 97 08/03/17 12:00 100.4 75 19 138/60 (86) 100 08/03/17 12:00 30 08/03/17 10:00 74 08/03/17 08:36 99 30 08/03/17 08:00 69 08/03/17 08:00 30 08/03/17 08:00 99.4 69 18 157/70 (99) 97 08/03/17 08:00 99.4 69 124/59 (80) 99 08/03/17 06:00 64 08/03/17 04:14 100 30 08/03/17 04:00 98.5 69 18 157/70 (99) 97 08/03/17 04:00 30 08/03/17 04:00 69 08/03/17 02:00 62 08/03/17 00:17 100 35 08/03/17 00:00 35 08/03/17 00:00 65 08/03/17 00:00 98.7 65 18 161/67 (98) 97 08/02/17 22:00 64 08/02/17 20:07 100 35 08/02/17 20:00 68 08/02/17 20:00 98.5 68 18 144/65 (91) 100 08/02/17 20:00 35 08/02/17 18:00 61 08/02/17 16:00 98.3 69 18 156/69 (98) 96 08/02/17 16:00 70 08/02/17 16:00 35 08/02/17 15:59 97 35 Intake & Output 08/03/17 08/03/17 07:00 19:00 Intake Total 2536.1719 ml 400 ml Output Total 1700 ml Balance 836.1719 ml 400 ml IV Total 2416.1719 ml 400 ml Other 120 ml Output Urine Total 1300 ml Stool Total 400 ml Physical Exam CONSTITUTIONAL/GENERAL: This is a morbidly obese female resting in bed in no acute distress. Ill looking. TUBES/LINES/DRAINS: ETT, OG, Grant catheter, rectal tube, SCDs. SKIN: Very pale, greenish tint to skin. No jaundice, rashes, or lesions. Ecchymoses on upper extremities. No wounds seen anteriorly. Skin temperature appropriate. Not diaphoretic. HEAD: Atraumatic. Normocephalic. EYES: Pupils equal and round and reactive.No scleral icterus. No injection or drainage. Fundi not examined. ENT: Unable to evaluate hearing secondary to clinical condition. Nose without bleeding or purulent drainage. Moist oral mucosa. Endotracheally intubated. NECK: Trachea midline. Supple. CARDIOVASCULAR: Regular rate and rhythm. Week pedal pulses. RESPIRATORY/CHEST: Symmetric, unlabored respirations. Clear, diminished to auscultation. GASTROINTESTINAL: Abdomen obese, large, round. Areas of hardening noted underneath surgical scars. Bowel sounds hypoactive. Unable to asses for hepatomegaly secondary to large body habitus. GENITOURINARY: Without palpable bladder distension. Urinary catheter in place. MUSCULOSKELETAL: Extremities without clubbing, cyanosis. Anasarca. NEUROLOGICAL: Unresponsive to verbal or tactile stimuli. Sedated. PSYCHIATRIC: Unable to assess secondary to clinical condition. Appears calm. . Diagnostic Tests Laboratory Laboratory Tests Test 08/01/17 05:24 08/01/17 05:35 08/02/17 07:58 08/02/17 16:00 White Blood Count 6.6 TH/MM3 (4.0-11.0) 6.0 TH/MM3 (4.0-11.0) Red Blood Count 3.03 MIL/MM3 (4.00-5.30) 3.15 MIL/MM3 (4.00-5.30) Hemoglobin 8.6 GM/DL (11.6-15.3) 8.8 GM/DL (11.6-15.3) Hematocrit 26.5 % (35.0-46.0) 27.5 % (35.0-46.0) Mean Corpuscular Volume 87.5 FL (80.0-100.0) 87.2 FL (80.0-100.0) Mean Corpuscular Hemoglobin 28.4 PG (27.0-34.0) 28.0 PG (27.0-34.0) Mean Corpuscular Hemoglobin Concent 32.5 % (32.0-36.0) 32.1 % (32.0-36.0) Red Cell Distribution Width 15.7 % (11.6-17.2) 16.5 % (11.6-17.2) Platelet Count 159 TH/MM3 (150-450) 158 TH/MM3 (150-450) Mean Platelet Volume 7.7 FL (7.0-11.0) 7.3 FL (7.0-11.0) Neutrophils (%) (Auto) 76.3 % (16.0-70.0) 72.1 % (16.0-70.0) Lymphocytes (%) (Auto) 11.1 % (9.0-44.0) 13.1 % (9.0-44.0) Monocytes (%) (Auto) 8.2 % (0.0-8.0) 9.3 % (0.0-8.0) Eosinophils (%) (Auto) 3.7 % (0.0-4.0) 4.8 % (0.0-4.0) Basophils (%) (Auto) 0.7 % (0.0-2.0) 0.7 % (0.0-2.0) Neutrophils # (Auto) 5.0 TH/MM3 (1.8-7.7) 4.3 TH/MM3 (1.8-7.7) Lymphocytes # (Auto) 0.7 TH/MM3 (1.0-4.8) 0.8 TH/MM3 (1.0-4.8) Monocytes # (Auto) 0.5 TH/MM3 (0-0.9) 0.6 TH/MM3 (0-0.9) Eosinophils # (Auto) 0.2 TH/MM3 (0-0.4) 0.3 TH/MM3 (0-0.4) Basophils # (Auto) 0.0 TH/MM3 (0-0.2) 0.0 TH/MM3 (0-0.2) CBC Comment DIFF FINAL DIFF FINAL Differential Comment Blood Urea Nitrogen 31 MG/DL (7-18) 37 MG/DL (7-18) Creatinine 2.16 MG/DL (0.50-1.00) 2.19 MG/DL (0.50-1.00) Random Glucose 143 MG/DL (74-106) 170 MG/DL (74-106) Albumin 2.7 GM/DL (3.4-5.0) 2.6 GM/DL (3.4-5.0) Calcium Level 8.9 MG/DL (8.5-10.1) 9.0 MG/DL (8.5-10.1) Phosphorus Level 5.1 MG/DL (2.5-4.9) 5.2 MG/DL (2.5-4.9) Sodium Level 137 MEQ/L (136-145) 139 MEQ/L (136-145) Potassium Level 3.4 MEQ/L (3.5-5.1) 4.1 MEQ/L (3.5-5.1) Chloride Level 98 MEQ/L (98-107) 103 MEQ/L (98-107) Carbon Dioxide Level 25.3 MEQ/L (21.0-32.0) 24.7 MEQ/L (21.0-32.0) Anion Gap 14 MEQ/L (5-15) 11 MEQ/L (5-15) Estimat Glomerular Filtration Rate 23 ML/MIN (>89) 23 ML/MIN (>89) Triglycerides Level 246 MG/DL (42-150) Blood Gas Puncture Site RT RADIAL Blood Gas Patient Temperature 98.6 Blood Gas HCO3 24 mmol/L (22-26) Blood Gas Base Excess 0.0 mmol/L (-2-2) Blood Gas Oxygen Saturation 89 % (90-100) Arterial Blood pH 7.39 (7.380-7.420) Arterial Blood Partial Pressure CO2 42 mmHg (38-42) Arterial Blood Partial Pressure O2 65 mmHg (61-120) Arterial Blood Oxygen Content 14.9 Vol % (12.0-20.0) Arterial Blood Carboxyhemoglobin 1.4 % (0-4) Arterial Blood Methemoglobin 1.5 % (0-2) Blood Gas Hemoglobin 11.9 G/DL (12.0-16.0) Oxygen Delivery Device VENTILATOR Blood Gas Ventilator Setting PRVC/AC Total Protein 6.1 GM/DL (6.4-8.2) Magnesium Level 2.1 MG/DL (1.5-2.5) Alkaline Phosphatase 88 U/L (45-117) Aspartate Amino Transf (AST/SGOT) 25 U/L (15-37) Alanine Aminotransferase (ALT/SGPT) 14 U/L (10-53) Total Bilirubin 0.6 MG/DL (0.2-1.0) Test 08/03/17 07:06 White Blood Count 5.9 TH/MM3 (4.0-11.0) Red Blood Count 2.78 MIL/MM3 (4.00-5.30) Hemoglobin 7.7 GM/DL (11.6-15.3) Hematocrit 24.3 % (35.0-46.0) Mean Corpuscular Volume 87.4 FL (80.0-100.0) Mean Corpuscular Hemoglobin 27.7 PG (27.0-34.0) Mean Corpuscular Hemoglobin Concent 31.7 % (32.0-36.0) Red Cell Distribution Width 16.4 % (11.6-17.2) Platelet Count 156 TH/MM3 (150-450) Mean Platelet Volume 7.4 FL (7.0-11.0) Neutrophils (%) (Auto) 68.2 % (16.0-70.0) Lymphocytes (%) (Auto) 15.8 % (9.0-44.0) Monocytes (%) (Auto) 10.5 % (0.0-8.0) Eosinophils (%) (Auto) 4.9 % (0.0-4.0) Basophils (%) (Auto) 0.6 % (0.0-2.0) Neutrophils # (Auto) 4.0 TH/MM3 (1.8-7.7) Lymphocytes # (Auto) 0.9 TH/MM3 (1.0-4.8) Monocytes # (Auto) 0.6 TH/MM3 (0-0.9) Eosinophils # (Auto) 0.3 TH/MM3 (0-0.4) Basophils # (Auto) 0.0 TH/MM3 (0-0.2) CBC Comment DIFF FINAL Differential Comment Blood Urea Nitrogen 37 MG/DL (7-18) Creatinine 2.13 MG/DL (0.50-1.00) Random Glucose 156 MG/DL (74-106) Total Protein 5.5 GM/DL (6.4-8.2) Albumin 2.3 GM/DL (3.4-5.0) Calcium Level 8.9 MG/DL (8.5-10.1) Phosphorus Level 4.4 MG/DL (2.5-4.9) Magnesium Level 1.9 MG/DL (1.5-2.5) Alkaline Phosphatase 77 U/L (45-117) Aspartate Amino Transf (AST/SGOT) 11 U/L (15-37) Alanine Aminotransferase (ALT/SGPT) 12 U/L (10-53) Total Bilirubin 0.5 MG/DL (0.2-1.0) Sodium Level 139 MEQ/L (136-145) Potassium Level 2.9 MEQ/L (3.5-5.1) Chloride Level 102 MEQ/L (98-107) Carbon Dioxide Level 24.2 MEQ/L (21.0-32.0) Anion Gap 13 MEQ/L (5-15) Estimat Glomerular Filtration Rate 24 ML/MIN (>89) Cyclosporine Level 68 COMMENT Result Diagram: 08/03/17 0706 08/03/17 0706 Imaging Last 48 hours Impressions Chest X-Ray 08/02/17 0600 Signed Impressions: Service Date/Time: Wednesday, August 02, 2017 03:14 - CONCLUSION: Left basilar opacity is present may be due to a combination of consolidation and or pleural effusion not significantly changed, however pulmonary edema has progressed. Hawk Davis MD Brain MRI 08/02/17 0000 Signed Impressions: Service Date/Time: Wednesday, August 02, 2017 10:51 - CONCLUSION: 1. Limited examination due to motion artifact on essentially all the images presented. 2. Bilateral cortical atrophy and chronic white matter changes. 3. No definite acute intracranial pathology. 4. Chronic sinus disease. Marco A Abraham MD Procedures * 08/01/17 -bronchoscopy * 07/21/17 -right IJ placement * 07/22/17 -endotracheal intubation * 07/24/17 -bronchoscopy * 07/25/17 -US guided thoracentesis . Assessment and Plan Disease Oriented Problem List: (1) Hypoxemic respiratory failure, chronic (2) Pneumonia (3) EDITH (acute kidney injury) (4) Encephalopathy (5) Anemia, chronic disease (6) Morbid obesity (7) History of kidney transplant Symptom Scale: (1) Dyspnea 0-10 Scale: Unable to quantify Comment: Currently on ventilator support. (2) Pain 0-10 Scale: Unable to quantify Comment: On fentanyl drip. (3) Debility 0-10 Scale: Unable to quantify Comment: Progressive secondary to chronic, acute illness. Pertinent Non-Medical Issues Psychosocial: Patient originally from [place]. Moved to [place] in 2001. Patient has been for the past 22 years. They have one son who is 20 years old, special needs secondary to autism. 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 No service. Spiritual: Caodaism kait. Legal: No advance directives completed. Ethical issues impacting care: No ethical issues identified. . Important Contacts Patient's Shantanu Dewey , . . Prognosis Mrs. Dewey is a 56-year-old female with a medical history significant for chronic kidney disease status post renal transplant, diabetes mellitus type 2, hypertension, morbid obesity. Patient with history of left kidney transplant in 2000, with radical right nephrectomy of [place] kidneys secondary to renal cancer in May 2017. Patient with progressive decline and multiple recent acute hospitalizations and rehabilitation. Clinical condition complicated by persistent encephalopathy, hypoxemia respiratory failure requiring intubation and mechanical ventilation. Patient's overall prognosis is guarded at this time , she remains a high risk for further complications, continue decline and . . Code Status: Full Code Plan * CODE STATUS: FULL code. * HEALTHCARE DECISION: Patient unable to participating medical decision-making secondary to clinical condition, stated encephalopathy. Unclear at this time if she will regain medical decision-making capacity. No advance directives completed. As per [place] statute, healthcare proxy decision-making falls to patient's Shantanu Dewey. has accepted this role. * GOALS OF CARE: Patient's Shantanu Dewey acting as healthcare proxy decision maker has elected to continue aggressive management to include full code. Ongoing goals of care conversation, NOT likely to proceed with trach and PEG given pt's overall poor prognosis for a meaningful recovery. Compassionate withdrawal life support has been introduced, palliative care follow-up meeting with 08/04/17 at 10:00 AM. * SYMPTOMS: = Shortness of breath, secondary to respiratory failure, pna. Remains intubated on mechanical ventilation. Worsening pulmonary edema. = Pain , secondary to intubation, lines, bedrest, acute illness. Morphine available as needed. Appears comfortable during my visit. = Debility, progressive. Worsen since May. Likely to continue to worsen given acute illness, multiple comorbidities and baseline functional status (bed to wheelchair bound). * Case discussed with Dr. Barrios and bedside RN. * Palliative care contact information has been provided to patient's . * Palliative care will continue to follow-up for further clarifications of goals of care as patient's clinical course continues to evolve. . Time Spent Total Floor Time (mins): 34 (Total time to include review medical records, physical exam, goals of care conversation with patient's , case discussion with Dr. Barrios and bedside RN.) >50% Counseling/Coord of Care: Yes Attestation To help prompt me to consider important information that might be impacting today's encounter and assessment, information from prior notes written by myself or my colleagues may have been "brought forward" into today's note. My signature on this note, however, is an attestation that I personally performed the exam, history, and/or decision-making noted today, and, unless otherwise indicated, the interactions with patient, family, and staff as well as the review of records all occurred today. I also attest that the listed assessment and stated plan reflect my best clinical judgment today based on the combination of historical information, prior notes, and today's exam/ interactions. When time spent is documented, it refers only to time spent today by the signer, or if indicated, combined time spent today by collaborating physician/nurse practitioner. Smita Chirinos Aug 03, 2017 15:21
[2017-08-03] MEDS ORDERED: HYOSCYAMINE SOLN 0.125 MG/ML 15 ML BTL SL PRN (16:30)
--- NOTE | 2017-08-03 17:31 | RADRPT ---
EXAM DATE/TIME: 08/03/2017 16:14 [facility] COMPARISON: CT ABDOMEN & PELVIS W/O CONTRAST, July 19, 2017, 16:25. CT ABDOMEN & PELVIS W/O CONTRAST, February 052016, 1:39. CT ABDOMEN & PELVIS W/O CONTRAST, July 30, 2017, 0:53. INDICATIONS : Left chest opacity. RADIATION DOSE: 16.47 CTDIvol (mGy) MEDICAL HISTORY : Hypertension. Chronic obstructive pulmonary disease. Renal failure, chronic. SURGICAL HISTORY : Nephrectomy, renal transplant ENCOUNTER: Initial ACUITY: 1 day PAIN SCALE: Non-responsive LOCATION: chest TECHNIQUE: Volumetric scanning of the chest was performed. Using automated exposure control and adjustment of t he mA and/or kV according to patient size, radiation dose was kept as low as reasonably achievable to obtain optimal diagnostic quality images. DICOM format image data is available electronically for r eview and comparison. Follow-up recommendations for detected pulmonary nodules are based at a minimum on nodule size and pa tient risk factors according to Fleischner Society Guidelines. FINDINGS: LUNGS: Bilateral lower lobe consolidation adjacent to pleural effusions. There is dense material noted in th e lung bases bilaterally as well as in the stomach. This was present on CT exam of 07/19/2017. Howeve r, a more remote CT examination of 03/04/2017 does not demonstrate dense material in the lower lobes. PLEURAE: Bilateral small pleural effusions. MEDIASTINUM: Coronary artery calcifications. Very subtle anterior pericardial effusion. Heart is otherwise unremar kable. No gross mediastinal adenopathy. AXILLAE: Single prominent 1.6 and the right axillary lymph node. MUSCULOSKELETAL: Degenerative changes of the thoracic spine without abnormal lytic or blastic bony lesions. MISCELLANEOUS: The visualized upper abdominal organs demonstrate no acute abnormality. CONCLUSION: 1. Bilateral lower lobe airspace consolidation with persistent dense material consistent with aspirat ed oral contrast. 2. Small bilateral pleural effusions. 3. Ancillary findings including very subtle anterior pericardial effusion and mild right axillary shalini nopathy. Varghese Baker MD on August 03, 2017 at 17:23 Board Certified Radiologist. This report was verified electronically.
[2017-08-03] MEDS ORDERED: SODIUM CHLORIDE 23.4% INJ 11 MEQ, SODIUM ACETATE INJ 59 MEQ, POTASSIUM CHLORIDE INJ 40 ... IV SCH ×8 (20:00)
[2017-08-03] MEDS: PRAVASTATIN SOD 40 MG TAB PO SCH (20:32)
[2017-08-04] VITALS (14 sets, daily range): BP systolic 84–160; BP diastolic 39–98; PULSE 76–86; RESP 18; TEMP 98.9–99; O2SAT 79–100
[2017-08-04] MEDS: PROPOFOL 1000 MG/100 ML IV PRN ×5 (01:56→10:46)
[2017-08-04] MEDS: RESP: ALBUTEROL 2.5 MG/IPRATROPIUM 0.5 MG NEB (SCH) NEB ×2 (04:38→08:41)
[2017-08-04] MEDS: RESP: SODIUM CHLORIDE 3% 4 ML NEB NEB SCH ×2 (04:38→08:41)
[2017-08-04] MEDS: METOCLOPRAMIDE HCL 10 MG/2 ML VIAL IV PUSH SCH (05:28)
[2017-08-04] MEDS: BETHANECHOL CHL 25 MG TAB PO SCH (05:28)
[2017-08-04] MEDS: LEVOTHYROXINE SODIUM 50 MCG TAB PO SCH (05:28)
[2017-08-04] MEDS: hydrALAZINE HCL 25 MG TAB PO SCH (05:28)
[2017-08-04] MEDS: HEPARIN SODIUM - SQ 10,000 UNITS/ML VIAL SQ SCH (05:29)
[2017-08-04] MEDS: INSULIN ASPART SUPPLEMENTAL SCALE SQ SCH (05:29)
[2017-08-04] MEDS: ARTIFICIAL TEARS OPTH SOLN 15 ML BTL EACH EYE SCH (05:37)
--- NOTE | 2017-08-04 05:52 | RADRPT ---
EXAM DATE/TIME: 08/04/2017 04:44 [facility] COMPARISON: CHEST SINGLE AP, August 02, 2017, 3:14. INDICATIONS : Evaluate for pneumonia, Respiratory failure MEDICAL HISTORY : Cardiovascular disease. Chronic obstructive pulmonary disease. SURGICAL HISTORY : Cholecystectomy. Nephrectomy, right ENCOUNTER: Subsequent ACUITY: 3 weeks PAIN SCORE: Non-responsive. LOCATION: Bilateral chest FINDINGS: Single AP view of the chest. Endotracheal tube and nasogastric tube remain in place along with right IJ dual-lumen catheter. Cardiac silhouette is prominent but unchanged. Hazy bilateral pulmonary opaci ty unchanged. No evidence of pneumothorax. CONCLUSION: No significant interval change. Michael Edge MD on August 04, 2017 at 5:50 Board Certified Radiologist. This report was verified electronically.
[2017-08-04 07:17] LABS: ALBUMIN 2.6 GM/DL (3.4-5.0); AST (GOT) 15 U/L (15-37); AUTOMATED NEUTROPHIL # 5.9 TH/MM3 (1.8-7.7); BASOPHIL % 0.6 % (0.0-2.0); BICARBONATE 25.5 MEQ/L (21.0-32.0); BLOOD UREA NITROGEN 39 MG/DL (7-18); CALCIUM 9.1 MG/DL (8.5-10.1); CHLORIDE 104 MEQ/L (98-107); CREATININE 2.01 MG/DL (0.50-1.00); EOSINOPHIL # 0.4 TH/MM3 (0-0.4); EOSINOPHIL % 4.6 % (0.0-4.0); GLOMERULAR FILTRATION RATE 26 ML/MIN (>89); GLUCOSE,RANDOM 167 MG/DL (74-106); HEMATOCRIT 26.9 % (35.0-46.0); HEMOGLOBIN 8.7 GM/DL (11.6-15.3); LYMPH % 10.1 % (9.0-44.0); LYMPHOCYTE # 0.8 TH/MM3 (1.0-4.8); MEAN CELL VOLUME 88.7 FL (80.0-100.0); MEAN CORPUSCULAR HEMOGLOBIN 28.8 PG (27.0-34.0); MEAN CORPUSCULAR HGB CONC 32.5 % (32.0-36.0); MEAN PLATELET VOLUME 7.5 FL (7.0-11.0); MONO % 7.9 % (0.0-8.0); MONOCYTE # 0.6 TH/MM3 (0-0.9); NEUT % 76.8 % (16.0-70.0); PLATELET COUNT 162 TH/MM3 (150-450); RED BLOOD COUNT 3.03 MIL/MM3 (4.00-5.30); RED CELL DISTRIBUTION WIDTH 16.7 % (11.6-17.2); SODIUM (NA) 139 MEQ/L (136-145); WHITE BLOOD COUNT 7.7 TH/MM3 (4.0-11.0)
[2017-08-04 07:18] LABS: ALT (GPT) 12 U/L (10-53); PHOSPHORUS 4.3 MG/DL (2.5-4.9)
[2017-08-04 07:20] LABS: ALKALINE PHOSPHATASE 87 U/L (45-117); TOTAL BILIRUBIN ADULT 0.5 MG/DL (0.2-1.0); TOTAL PROTEIN 5.9 GM/DL (6.4-8.2)
[2017-08-04] MEDS: SODIUM CHLORIDE 0.9% FLUSH 10 ML FLUSH IV FLUSH SCH (08:29)
[2017-08-04] MEDS: SODIUM CHLORIDE 0.9% FLUSH 10 ML FLUSH IV FLUSH PRN (08:29)
[2017-08-04] MEDS: predniSONE 5 MG TAB PO SCH (08:30)
[2017-08-04] MEDS: FERROUS SULFATE 300 MG /5ML UDC PO SCH (08:30)
[2017-08-04] MEDS: LACTULOSE SYRUP 20 GM/30 ML CUP PO SCH (08:30)
[2017-08-04] MEDS: ASPIRIN EC 81 MG TABEC PO SCH (08:30)
[2017-08-04] MEDS: METOPROLOL TARTRATE 50 MG TAB PO SCH (08:30)
[2017-08-04] MEDS: FUROSEMIDE 20 MG/2 ML VIAL IV PUSH SCH (08:30)
[2017-08-04] MEDS: CALCIUM/VITAMIN D 250 MG/125 U TAB PO SCH (08:31)
[2017-08-04] MEDS: INSULIN DETEMIR 100 UNITS/ML VIAL SQ SCH (08:31)
[2017-08-04] MEDS: amLODIPine BESYLATE 5 MG TAB PO SCH (08:31)
[2017-08-04] MEDS: FAMOTIDINE 20 MG TAB PO SCH (08:31)
[2017-08-04] MEDS: CHLORHEXIDINE 0.12% (ORAL KIT) 15 ML CUP MT SCH (08:35)
[2017-08-04] MEDS: RESP: BUDESONIDE 0.5 MG/2 ML NEB NEB SCH (08:41)
--- NOTE | 2017-08-04 10:43 | HHI.HCPN ---
Reason for visit a. To assist with evaluation and management of symptoms including: Shortness of breath, pain, debility. b. To assist medical decision maker(s) with: better understanding of current medical conditions; weighing benefits/burdens of medical treatment options; making medical treatment decisions. . Subjective/Interval History Palliative care follow up for further clarifications of goals of care. Patient remains endotracheally intubated on mechanical ventilation, persistent encephalopathy. Neurology following, MRI of the brain negative for acute process, EEG revealing ongoing encephalopathic process. Patient with persistent pulmonary congestion, CT of chest 08/03 revealing bilateral lower lobe consolidation with persistent dense material consistent with aspiration, small bilateral pleural effusions, subtle anterior pericardial effusion and mild right axillary adenopathy. Patient status post bronchoscopy x 2 for mucus plugging. Patient O2 dependent at home at baseline. Tube feeding remains on hold secondary to high residuals, likely gastroparesis. GI following. Patient remains on TPN. Renal function remained stable with good urinary output, nephrology following. Hemodialysis deferred. Patient afebrile, stable hemodynamically. Case discussed with Dr. Barrios. Patient not likely to medically extubate given persistent encephalopathy as well as multiple ongoing chronic comorbidities, acute events and baseline physical deconditioning. Met with patient's Shantanu Dewey. Medical update provided. Reviewed patient's past medical history to include diabetes mellitus, chronic kidney disease status post renal transplant, hypertension, morbid obesity, physical deconditioning. 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 Has been on chronic immunosuppression since 2000. Patient reports progressive decline for the past few years, worsening over the past year since radical right nephrectomy. Patient with multiple recent hospitalizations, progressive physical deconditioning. Reviewed that patient is unlikely to be medically extubated secondary to persistent encephalopathy as well as multiple ongoing chronic comorbidities, acute events and baseline physical deconditioning. Reviewed tracheostomy and PEG tube placement. tells me that patient's quality of life is his priority. Reports that they have had multiple prior conversations regarding goals of care in the past given her chronic illnesses and progressive decline. reports that patient has verbalized in the past not wishing for aggressive measures in the setting of her poor prognosis, not to proceed with trach and PEG. Patient's electing to proceed with comfort-directed care/withdrawal of life support given overall poor prognosis for a meaningful recovery and patient's known wishes. Case discussed with Dr. Barrios and bedside RN Ariela. electing not to be present at time of compassionate withdrawal, however, requesting to be called to prior to initiation of process. . Family/friend interactions See interval note. . Advance Directives Living Will: Never completed Health Care Surrogate: Never completed Durable Power of Logistics Operations Manager: Never completed Advance Directive Specifics Health Care Surrogate(s): No advance directives completed. As per [place] statute, healthcare proxy decision-making falls to patient's Shantanu Dewey. . Significant change in goals: Patient's acting as healthcare proxy decision maker has elected to transition patient to comfort-directed care/withdrawal of life support. . Objective Vital Signs Date Time Temp Pulse Resp B/P (MAP) Pulse Ox O2 Delivery O2 Flow Rate FiO2 08/04/17 08:40 95 30 08/04/17 06:00 82 08/04/17 04:38 96 30 08/04/17 04:00 99.0 81 18 160/98 (118) 100 08/04/17 04:00 30 08/04/17 04:00 81 08/04/17 02:00 83 08/04/17 01:39 96 30 08/04/17 00:00 30 08/04/17 00:00 98.9 76 100/67 (78) 100 08/04/17 00:00 76 08/03/17 22:09 100 30 08/03/17 22:00 88 08/03/17 20:06 100 30 08/03/17 20:00 98.7 75 19 106/53 (70) 100 08/03/17 20:00 30 08/03/17 20:00 75 08/03/17 18:00 97 08/03/17 16:27 99 60 08/03/17 16:00 100.3 84 14 147/63 (91) 96 08/03/17 16:00 84 08/03/17 16:00 30 08/03/17 15:40 98 30 08/03/17 14:00 82 08/03/17 13:31 100 30 08/03/17 12:00 74 08/03/17 12:00 100.4 69 18 157/70 (99) 97 08/03/17 12:00 100.4 75 19 138/60 (86) 100 08/03/17 12:00 30 Intake & Output 08/04/17 08/04/17 07:00 19:00 Intake Total 1200 ml 99.4 ml Output Total 1775 ml Balance -575 ml 99.4 ml IV Total 900 ml 99.4 ml Tube Irrigant 300 ml Output Urine Total 1275 ml Stool Total 500 ml Physical Exam CONSTITUTIONAL/GENERAL: This is a morbidly obese female resting in bed in no acute distress. Ill looking. TUBES/LINES/DRAINS: ETT, OG, Grant catheter, rectal tube, SCDs. SKIN: Very pale, greenish tint to skin. No jaundice, rashes, or lesions. Ecchymoses on upper extremities. No wounds seen anteriorly. Skin temperature appropriate. Not diaphoretic. HEAD: Atraumatic. Normocephalic. EYES: Pupils equal and round and reactive.No scleral icterus. No injection or drainage. Fundi not examined. ENT: Unable to evaluate hearing secondary to clinical condition. Nose without bleeding or purulent drainage. Moist oral mucosa. Endotracheally intubated. NECK: Trachea midline. Supple. CARDIOVASCULAR: Regular rate and rhythm. Week pedal pulses. RESPIRATORY/CHEST: Symmetric, unlabored respirations. Clear, diminished to auscultation. GASTROINTESTINAL: Abdomen obese, large, round. Areas of hardening noted underneath surgical scars. Bowel sounds hypoactive. Unable to asses for hepatomegaly secondary to large body habitus. GENITOURINARY: Without palpable bladder distension. Urinary catheter in place. MUSCULOSKELETAL: Extremities without clubbing, cyanosis. Anasarca. NEUROLOGICAL: Unresponsive to verbal or tactile stimuli. Sedated. PSYCHIATRIC: Unable to assess secondary to clinical condition. Appears calm. . Diagnostic Tests Laboratory Laboratory Tests Test 08/02/17 07:58 08/02/17 16:00 08/03/17 07:06 08/04/17 06:15 Blood Urea Nitrogen 37 MG/DL (7-18) 37 MG/DL (7-18) 39 MG/DL (7-18) Creatinine 2.19 MG/DL (0.50-1.00) 2.13 MG/DL (0.50-1.00) 2.01 MG/DL (0.50-1.00) Random Glucose 170 MG/DL (74-106) 156 MG/DL (74-106) 167 MG/DL (74-106) Total Protein 6.1 GM/DL (6.4-8.2) 5.5 GM/DL (6.4-8.2) 5.9 GM/DL (6.4-8.2) Albumin 2.6 GM/DL (3.4-5.0) 2.3 GM/DL (3.4-5.0) 2.6 GM/DL (3.4-5.0) Calcium Level 9.0 MG/DL (8.5-10.1) 8.9 MG/DL (8.5-10.1) 9.1 MG/DL (8.5-10.1) Phosphorus Level 5.2 MG/DL (2.5-4.9) 4.4 MG/DL (2.5-4.9) 4.3 MG/DL (2.5-4.9) Magnesium Level 2.1 MG/DL (1.5-2.5) 1.9 MG/DL (1.5-2.5) 2.0 MG/DL (1.5-2.5) Alkaline Phosphatase 88 U/L (45-117) 77 U/L (45-117) 87 U/L (45-117) Aspartate Amino Transf (AST/SGOT) 25 U/L (15-37) 11 U/L (15-37) 15 U/L (15-37) Alanine Aminotransferase (ALT/SGPT) 14 U/L (10-53) 12 U/L (10-53) 12 U/L (10-53) Total Bilirubin 0.6 MG/DL (0.2-1.0) 0.5 MG/DL (0.2-1.0) 0.5 MG/DL (0.2-1.0) Sodium Level 139 MEQ/L (136-145) 139 MEQ/L (136-145) 139 MEQ/L (136-145) Potassium Level 4.1 MEQ/L (3.5-5.1) 2.9 MEQ/L (3.5-5.1) 3.6 MEQ/L (3.5-5.1) Chloride Level 103 MEQ/L (98-107) 102 MEQ/L (98-107) 104 MEQ/L (98-107) Carbon Dioxide Level 24.7 MEQ/L (21.0-32.0) 24.2 MEQ/L (21.0-32.0) 25.5 MEQ/L (21.0-32.0) Anion Gap 11 MEQ/L (5-15) 13 MEQ/L (5-15) 10 MEQ/L (5-15) Estimat Glomerular Filtration Rate 23 ML/MIN (>89) 24 ML/MIN (>89) 26 ML/MIN (>89) White Blood Count 6.0 TH/MM3 (4.0-11.0) 5.9 TH/MM3 (4.0-11.0) 7.7 TH/MM3 (4.0-11.0) Red Blood Count 3.15 MIL/MM3 (4.00-5.30) 2.78 MIL/MM3 (4.00-5.30) 3.03 MIL/MM3 (4.00-5.30) Hemoglobin 8.8 GM/DL (11.6-15.3) 7.7 GM/DL (11.6-15.3) 8.7 GM/DL (11.6-15.3) Hematocrit 27.5 % (35.0-46.0) 24.3 % (35.0-46.0) 26.9 % (35.0-46.0) Mean Corpuscular Volume 87.2 FL (80.0-100.0) 87.4 FL (80.0-100.0) 88.7 FL (80.0-100.0) Mean Corpuscular Hemoglobin 28.0 PG (27.0-34.0) 27.7 PG (27.0-34.0) 28.8 PG (27.0-34.0) Mean Corpuscular Hemoglobin Concent 32.1 % (32.0-36.0) 31.7 % (32.0-36.0) 32.5 % (32.0-36.0) Red Cell Distribution Width 16.5 % (11.6-17.2) 16.4 % (11.6-17.2) 16.7 % (11.6-17.2) Platelet Count 158 TH/MM3 (150-450) 156 TH/MM3 (150-450) 162 TH/MM3 (150-450) Mean Platelet Volume 7.3 FL (7.0-11.0) 7.4 FL (7.0-11.0) 7.5 FL (7.0-11.0) Neutrophils (%) (Auto) 72.1 % (16.0-70.0) 68.2 % (16.0-70.0) 76.8 % (16.0-70.0) Lymphocytes (%) (Auto) 13.1 % (9.0-44.0) 15.8 % (9.0-44.0) 10.1 % (9.0-44.0) Monocytes (%) (Auto) 9.3 % (0.0-8.0) 10.5 % (0.0-8.0) 7.9 % (0.0-8.0) Eosinophils (%) (Auto) 4.8 % (0.0-4.0) 4.9 % (0.0-4.0) 4.6 % (0.0-4.0) Basophils (%) (Auto) 0.7 % (0.0-2.0) 0.6 % (0.0-2.0) 0.6 % (0.0-2.0) Neutrophils # (Auto) 4.3 TH/MM3 (1.8-7.7) 4.0 TH/MM3 (1.8-7.7) 5.9 TH/MM3 (1.8-7.7) Lymphocytes # (Auto) 0.8 TH/MM3 (1.0-4.8) 0.9 TH/MM3 (1.0-4.8) 0.8 TH/MM3 (1.0-4.8) Monocytes # (Auto) 0.6 TH/MM3 (0-0.9) 0.6 TH/MM3 (0-0.9) 0.6 TH/MM3 (0-0.9) Eosinophils # (Auto) 0.3 TH/MM3 (0-0.4) 0.3 TH/MM3 (0-0.4) 0.4 TH/MM3 (0-0.4) Basophils # (Auto) 0.0 TH/MM3 (0-0.2) 0.0 TH/MM3 (0-0.2) 0.0 TH/MM3 (0-0.2) CBC Comment DIFF FINAL DIFF FINAL DIFF FINAL Differential Comment Cyclosporine Level 68 COMMENT Result Diagram: 08/04/17 0615 08/04/17 0615 Imaging Last 24 hours Impressions Chest X-Ray 08/04/17 0600 Signed Impressions: Service Date/Time: Friday, August 04, 2017 04:44 - CONCLUSION: No significant interval change. Michael Edge MD Procedures * 08/01/17 -bronchoscopy * 07/21/17 -right IJ placement * 07/22/17 -endotracheal intubation * 07/24/17 -bronchoscopy * 07/25/17 -US guided thoracentesis . Assessment and Plan Disease Oriented Problem List: (1) Hypoxemic respiratory failure, chronic (2) Pneumonia (3) EDITH (acute kidney injury) (4) Encephalopathy (5) Anemia, chronic disease (6) Morbid obesity (7) History of kidney transplant Symptom Scale: (1) Dyspnea 0-10 Scale: Unable to quantify Comment: Currently on ventilator support. (2) Pain 0-10 Scale: Unable to quantify Comment: On fentanyl drip. (3) Debility 0-10 Scale: Unable to quantify Comment: Progressive secondary to chronic, acute illness. Pertinent Non-Medical Issues Psychosocial: Patient originally from [place]. Moved to [place] in 2001. Patient has been for the past 22 years. They have one son who is 20 years old, special needs secondary to autism. 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 No service. Spiritual: Judaism kait. Legal: No advance directives completed. Ethical issues impacting care: No ethical issues identified. . Important Contacts Patient's Shantanu Dewey , . . Prognosis Mrs. Dewey is a 56-year-old female with a medical history significant for chronic kidney disease status post renal transplant, diabetes mellitus type 2, hypertension, morbid obesity. 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 Patient with progressive decline and multiple recent acute hospitalizations and rehabilitation. Clinical condition complicated by persistent encephalopathy, hypoxemia respiratory failure requiring intubation and mechanical ventilation. Patient's overall prognosis is guarded at this time , she remains a high risk for further complications, continue decline and . . Code Status: No Code Plan * CODE STATUS: NO code. * HEALTHCARE DECISION: Patient unable to participating medical decision-making secondary to clinical condition, stated encephalopathy. Unclear at this time if she will regain medical decision-making capacity. No advance directives completed. As per [place] statute, healthcare proxy decision-making falls to patient's Shantanu Dewey. has accepted this role. * GOALS OF CARE: Patient's Shantanu Dewey acting as healthcare proxy decision maker has elected against tracheostomy/PEG placement. Electing to transition patient to comfort-directed care/compassionate withdrawal of life support given overall poor prognosis for a meaningful recovery and patient's known wishes. * SYMPTOMS: Comfort-directed care medications on board. * Exhibits B&C sign. * Anticipatory guidance provided to patient's . * Spiritual services offered and declined. Ongoing emotional support and active listening provided. * Case discussed with Dr. Barrios, Dr Chopra and bedside RN Ariela. * Palliative care contact information has been provided to patient's . * Palliative care will continue to follow-up for further clarifications of goals of care as patient's clinical course continues to evolve. . Time Spent Total Floor Time (mins): 62 ([facility] meeting from 10:05 to 10:47. Total time to include review medical records, physical exam, goals of care conversation with patient's , case discussion with Dr. Barrios and bedside RN.) >50% Counseling/Coord of Care: Yes Attestation To help prompt me to consider important information that might be impacting today's encounter and assessment, information from prior notes written by myself or my colleagues may have been "brought forward" into today's note. My signature on this note, however, is an attestation that I personally performed the exam, history, and/or decision-making noted today, and, unless otherwise indicated, the interactions with patient, family, and staff as well as the review of records all occurred today. I also attest that the listed assessment and stated plan reflect my best clinical judgment today based on the combination of historical information, prior notes, and today's exam/ interactions. When time spent is documented, it refers only to time spent today by the signer, or if indicated, combined time spent today by collaborating physician/nurse practitioner. Smita Chirinos Aug 04, 2017 10:43
--- NOTE | 2017-08-04 10:59 | HHI.NPPN ---
Subjective Renal Failure: Chronic, Acute Interval History Remains intubated, unresponsive. has decided to withdraw life support this afternoon. (Ania Sampson) Review of Systems General General Remarks unable to evaluate (Ania Sampson) Cardiovascular Cardiac: Edema (Ania Sampson) Objective Data Data 08/04/17 08/05/17 19:00 07:00 Intake Total 197.4 ml Balance 197.4 ml IV Total 197.4 ml Vital Signs Date Time Temp Pulse Resp B/P (MAP) Pulse Ox O2 Delivery O2 Flow Rate FiO2 08/04/17 08:40 95 30 08/04/17 06:00 82 08/04/17 04:38 96 30 08/04/17 04:00 99.0 81 18 160/98 (118) 100 08/04/17 04:00 30 08/04/17 04:00 81 08/04/17 02:00 83 08/04/17 01:39 96 30 08/04/17 00:00 30 08/04/17 00:00 98.9 76 100/67 (78) 100 08/04/17 00:00 76 08/03/17 22:09 100 30 08/03/17 22:00 88 08/03/17 20:06 100 30 08/03/17 20:00 98.7 75 19 106/53 (70) 100 08/03/17 20:00 30 08/03/17 20:00 75 08/03/17 18:00 97 08/03/17 16:27 99 60 08/03/17 16:00 100.3 84 14 147/63 (91) 96 08/03/17 16:00 84 08/03/17 16:00 30 08/03/17 15:40 98 30 08/03/17 14:00 82 08/03/17 13:31 100 30 08/03/17 12:00 74 08/03/17 12:00 100.4 69 18 157/70 (99) 97 08/03/17 12:00 100.4 75 19 138/60 (86) 100 08/03/17 12:00 30 (Ania Sampson) -: 08/04/17 0615 08/04/17 0615 Imaging Last 72 hours Impressions Chest X-Ray 08/04/17 06 Signed Impressions: Service Date/Time: Friday, August 04, 2017 04:44 - CONCLUSION: No significant interval change. Michael Edge MD Chest CT 08/03/17 06 Signed Impressions: Service Date/Time: July 16:14 - CONCLUSION: 1. Bilateral lower lobe airspace consolidation with persistent dense material consistent with aspirated oral contrast. 2. Small bilateral pleural effusions. 3. Ancillary findings including very subtle anterior pericardial effusion and mild right axillary adenopathy. Varghese Baker MD Chest X-Ray 08/02/17 06 Signed Impressions: Service Date/Time: Wednesday, August 02, 2017 03:14 - CONCLUSION: Left basilar opacity is present may be due to a combination of consolidation and or pleural effusion not significantly changed, however pulmonary edema has progressed. Hawk Davis MD Brain MRI 08/02/17 0000 Signed Impressions: Service Date/Time: Wednesday, August 02, 2017 10:51 - CONCLUSION: 1. Limited examination due to motion artifact on essentially all the images presented. 2. Bilateral cortical atrophy and chronic white matter changes. 3. No definite acute intracranial pathology. 4. Chronic sinus disease. Marco A Abraham MD Tubes & Lines: Perma-Cath, Grant Tubes & Lines Comment rectal bag Drip Comment Propofol, PPN (Ania Sampson) Physical Exam General Appearance: Obese Appearance Remarks morbidly obese, intubated, unresponsive. (Ania Sampson) Eyes Eye Exam: Pupils Equal (Ania Sampson) Neck Neck Exam: Neck Supple (Ania Sampson) Pulmonary Resp Exam: Crackles, Rhonchi, Decreased Bases, Diminished Breath Sounds Resp Remarks vented lung sounds (Ania Sampson) Cardiology CV Exam: Regular, Normal Sinus Rhythm (Ania Sampson) Gastrointestinal/Abdomen GI Exam: Soft, Non-Tender, Bowel Sounds Present (Ania Sampson) Genitourinary Remarks dark urine (Ania Sampson) Musculoskeletal MS Exam: Normal Tone, Unable to Ambulate (Ania Sampson) Integumentary Skin Exam: Warm, Dry (Ania Sampson) Extremeties Extremities Exam: Moderate Edema, Pitting Edema, Dependent Edema Extremeties Remarks upper extremity edema (Ania Sampson) Neurologic Neuro Exam: Unresponsive, Sedated (Ania Sampson) Assessment/Plan Assessment Summary: Anemia of CKD, Hypertension, Diabetes Mellitus Problem List: (1) EDITH (acute kidney injury) ICD Codes: N17.9 - Acute kidney failure, unspecified Status: Acute Plan: Has hx of renal transplant in 2000 and a hx of nephrectomy due to renal cell CA in 2017 Has underlying stage IV CKD. She may have suffered ATN or worsening chronic graft loss. Renal function has improved, she is non oliguric. HD required from 07/21 to 07/29. has decided to withdraw life support as her chance for meaningful recovery is extremely poor. (2) H/O kidney transplant ICD Codes: Z94.0 - Kidney transplant status Status: Acute Plan: Patient has a failing allograft Continue immunosuppression, she is on prednisone and cyclosporine. Monitor cyclosporine level, level is low. Dosage increased to 125 mg BID (3) Diabetes ICD Codes: E11.9 - Type 2 diabetes mellitus without complications Status: Chronic Plan: Monitor glucose, maintain 140-180 mg/dL this admission (4) HTN (hypertension) ICD Codes: I10 - Essential (primary) hypertension Status: Chronic Plan: Continue medications as ordered, titrate as needed (5) Pneumonia ICD Codes: J18.9 - Pneumonia, unspecified organism Plan: Off antibiotics. ID following Chest xray (serial) reviewed s/p left thoracentesis last week, 975 ml removed 08/02 had repeat bronch with mucous plug removal. ON 30% FiO2 continue vent care, refused trach/PEG. Plan We will sign off at this time due to plans for terminal extubation. (Ania Sampson) Plan patient was seen and examined. Agree with above assessment and plan. Family has decided to withdraw care. (Antonio Velez MD) Problem Qualifiers (1) Diabetes: Ania Sampson Aug 04, 2017 10:59 Antonio Velez MD Aug 04, 2017 13:56
--- NOTE | 2017-08-04 11:09 | HHI.CCPN ---
Subjective Remarks/Hospital Course I was asked to see patient this evening due to excessive somnolence. She was protecting her airway adequately but otherwise unresponsive except to loud voice or noxious stimulation. She was just started back on dialysis after a renal transplant failed. She has a past medical history of hypertension, hyperlipidemia, depression, morbid obesity, CKD status post renal transplant, renal cell carcinoma status post right nephrectomy, diabetes mellitus and sleep apnea. She presented to the ER 2 days ago with persistent vomiting despite home medication with Zofran and Phenergan. Patient also complains of generalized abdominal pain, worst in the epigastric region. She was discharged from the hospital on 07/13 where she was treated for acute on chronic kidney injury, generalized weakness and hyperkalemia. She is chronically on 2-3 L nasal cannula at home with a history of asthma. She denies any fever/chills. H&H 7.6 /23.8 which is approximately patient's baseline. BUN/creatinine 86/3.89, patient's creatinine 2.66 on 07/13. Chest x-ray showed bibasilar airspace disease with possible bilateral pleural effusions. CT of the abdomen/pelvis with new bibasilar consolidating infiltrate and 3 cm left renal mass which is unchanged from previous. Presently, her respiratory effort is satisfactory and she controls her airway. Major concern is for CO2 retention. 07/22: Currently orotracheally intubated. On low dose propofol drip at 10 mcg/ kg per minute. Arousable on the ventilator and appointments. Will initiate tube feeding today. 07/23: Afebrile. Patient received transfusion yesterday 1 unit of packed red blood cells hemoglobin stable this a.m.. Patient underwent hemodialysis yesterday approximately 4500 cc removed. Patient continues on sedation for ventilator synchrony. Chest x-ray appears to be worsening. CT brain revealed no abnormalities. 07/24: Afebrile. Chest x-ray showed complete near-complete opacification of the left lung, bronchoscopy planned. Patient noted to have pleural effusions right, ultrasound quantification of pleural effusion pending. Mucomyst initiated. 07/25: Patient's Hgb 6.1 this am, planned in one unit of PRBC. Patient noted large left effusion greater than 770 cc. Thoracentesis performed approximately 990 cc removed from left side. Chest x-ray pending post procedure. BAL performed yesterday, results pending. 07/26: Afebrile. JHONY globin stable as post transfusion yesterday. Patient noted to have high gastric residuals greater than 550 cc, Reglan initiated every 8 hours. IHD 4 L off yesterday. Chest x-ray continues to worsen. 07/27: Sedation vacation again performed today patient writhing around in bed not following commands, continues to appear altered. CT brain EEG ammonia level pending. Patient currently undergoing IHD with targeted to fluid removal of 4 L. KUB performed for persistent residuals no acute abnormality. 07/28: Neurologically the patient thrashing around on not following commands. CT performed negative, EEG negative. Patient noted to have high residuals, patient continues on Reglan 5 mg every 8 hours, and is having daily bowel movements . KUB does not reveal an ileus .GI has been consulted. 07/29: No acute changes overnight. The patient remains nothing by mouth secondary to high residuals. Consult with GI pending. CT of the abdomen and pelvis ordered. 07/30: CT of the abdomen and pelvis was negative no obstruction noted. The patient had a fecal containment device approximately 1 L out in 24 hours yesterday, however the patient is not tolerating tube feeds. Awaiting GI recommendations. The patient remains obtunded fentanyl infusion completely discontinued the patient remains on propofol for ventilator synchrony. Chest x- ray this a.m., left lung collapse appearance of mucous plugging emergency bronchoscopy , Mucomyst planned and possible chest tube placement depending on results. Begin PPN today 07/31: No acute events overnight. Daily sedation vacation, patient not responding, opens eyes spontaneously moves extremities spontaneously, thrashing around does not follow any commands. Palliative care has been consulted and is in discussions with regarding definition of goals of care. The patient underwent bronchoscopy for mucous plugging yesterday the patient has maintain oxygenation without any compromise throughout the day. Am improvement noted on chest x-ray post from the patient continues on Mucomyst for 2 additional days dosing. 08/01 Opacification L chest, appears to have volume loss. Thick cisneros secretions. Plan for therapeutic bronchoscopy. Dr. Lerma evaluated today and ordered MRI. 08/02: Resting comfortably bed in no acute distress. Plan for CT chest today. Afebrile. MRI brain reviewed with no acute findings. 08/03: Afebrile. Remains off tube feeding. Plan for CT chest today Subjective 08/04: After reviewing results of MRI and EEG with neurology, has been made decision to proceed with compassion withdrawal of care. Extubated at 1100. Currently on nasal cannula for comfort. Objective Vital Signs Date Time Temp Pulse Resp B/P (MAP) Pulse Ox O2 Delivery O2 Flow Rate FiO2 08/04/17 10:00 81 08/04/17 08:40 95 30 08/04/17 04:00 99.0 18 160/98 (118) Intake and Output 08/04/17 08/04/17 08/05/17 08:00 16:00 00:00 Intake Total 900 ml 197.4 ml Output Total 1775 ml Balance -875 ml 197.4 ml Result Diagram: 08/04/1715 08/04/1715 Other Results Microbiology Date/Time Source Procedure Growth Status 07/20/17 21:46 Blood Peripheral Aerobic Blood Culture - Final NO GROWTH IN 5 DAYS Complete 07/20/17 21:46 Blood Peripheral Anaerobic Blood Culture - Final NO GROWTH IN 5 DAYS Complete 07/25/17 13:19 Fluid Pleural Fluid Fungal Smear - Final NO FUNGAL ELEMENTS SEEN. Resulted 07/25/17 13:19 Fluid Pleural Fluid Fungal Culture - Preliminary NO GROWTH IN 1 WEEK Resulted 07/24/17 16:20 Bronchial Washings Bronchial Gram Stain - Final Complete 07/24/17 16:20 Bronchial Washings Bronchial Bronchial Culture - Final NO GROWTH IN 48 HOURS. Complete 07/25/17 16:44 Urine Clean Catch Urine Culture - Final NO GROWTH IN 48 HOURS. Complete Imaging Last Impressions Chest X-Ray 08/04/17 06 Signed Impressions: Service Date/Time: Friday, August 04, 2017 04:44 - CONCLUSION: No significant interval change. Michael Edge MD Chest CT 08/03/17 0600 Signed Impressions: Service Date/Time: July 16:14 - CONCLUSION: 1. Bilateral lower lobe airspace consolidation with persistent dense material consistent with aspirated oral contrast. 2. Small bilateral pleural effusions. 3. Ancillary findings including very subtle anterior pericardial effusion and mild right axillary adenopathy. Varghese Baker MD Brain MRI 08/02/17 0000 Signed Impressions: Service Date/Time: Wednesday, August 02, 2017 10:51 - CONCLUSION: 1. Limited examination due to motion artifact on essentially all the images presented. 2. Bilateral cortical atrophy and chronic white matter changes. 3. No definite acute intracranial pathology. 4. Chronic sinus disease. Marco A Abraham MD Abdomen X-Ray 07/30/17 0000 Signed Impressions: Service Date/Time: Sunday, July 30, 2017 13:16 - CONCLUSION: Limited visualization secondary to body habitus otherwise negative Sherif Diaz MD FACR Abdomen/Pelvis CT 07/29/17 0000 Signed Impressions: Service Date/Time: Sunday, July 30, 2017 00:53 - CONCLUSION: No evidence of bowel obstruction To Coates MD Head CT 07/27/17 0000 Signed Impressions: Service Date/Time: Friday, July 28, 2017 04:59 - CONCLUSION: No acute intracranial findings To Coates MD Thoracentesis Ultrasound 07/25/17 0000 Signed Impressions: Service Date/Time: Tuesday, July 25, 2017 12:49 - CONCLUSION: Uncomplicated ultrasound guided thoracentesis. Varghese Baker MD Chest Ultrasound 07/24/17 1600 Signed Impressions: Service Date/Time: Monday, July 24, 2017 17:18 - CONCLUSION: There is a moderate-sized right pleural effusion confirmed by ultrasound Rosalino Morgan MD Upper Extremity Ultrasound 07/23/17 0000 Signed Impressions: Service Date/Time: Sunday, July 23, 2017 07:48 - CONCLUSION: No evidence of deep venous thrombosis within the upper extremities. Florin Michelle MD Catheter Placement X-Ray 07/21/17 0000 Signed Impressions: Service Date/Time: Friday, July 21, 2017 14:47 - CONCLUSION: Uncomplicated PermaCath placement as above. Idris Diaz MD Objective Remarks GENERAL: 56-year-old super morbidly obese female, resting in bed on nasal cannula SKIN: Warm and dry. HEAD: Atraumatic. Normocephalic. EYES: Pupils 2 mm, equal round and reactive. ENT: . Oral thrush NECK: Trachea midline. Supple, nontender, right IJ tunneled cuffed catheter in place for hemodialysis CARDIOVASCULAR: RRR. Distant. Without murmurs, clicks, gallops or rub. Unable to assess JVD secondary to body habitus RESPIRATORY:. Distant breath sounds throughout. Scattered crackles throughout. No wheezing ABD: Obese, soft, nontender. healed incision R abdomen with firmness. Reducible Umbilical hernia. MUSCULOSKELETAL: 2+ peripheral edema left upper extremity, trace to 1+ right upper extremity chronic. Well perfused. NEUROLOGICAL: Eyes open, blinks to visual threat, does not track. Withdraws to pain in all 4 extremities A/P Assessment and Plan Neuro/Psych: Acute toxic metabolic encephalopathy Depression disorder NOS Altered mental status Currently on lorazepam 1 mg scheduled every 4 hours with 1-2 mg every hour when necessary agitation On hydromorphone 2 mg scheduled every 4 hours with 2-4 mg as needed for pain management 07/27 CT brain - no acute abnormality 07/28 EEG moderate to severe encephalopathy. No epileptic activity. MRI brain 08/02 revealed no acute intracranial findings Neurology following, Dr. Dr. Lerma CV: Hypertension Dyslipidemia NS IVF discontinued 07/24 Compassion withdrawal. Small anterior. Pericardial effusion noted on CT chest Resp: Acute on chronic hypoxemic respiratory failure Chronic home O2 dependency at 3 L at home History of asthma Nasal cannula 2 L for comfort Albuterol/ipratropium aerosols every 6 hours with albuterol aerosols every 2 hours. Dyspnea Hypertonic saline every 6 hours as needed for mucolytic thin secretions Hyoscyamine 0.25 mg as needed for secretions On fluticasone 44 g 2 puffs twice a day and salmeterol 50 g inhaled twice a day at home CXR 07/23 worsening effusions and bibasilar consolidation small right and moderate left pleural effusions 07/23 US guided marking of lungs 770cc on left, 276 on right 07/25 S/P right thoracentesis 990 cc removed 07/30-chest x-ray-left lung collapse- differential possible mucus plugging versus pleural effusion versus pneumothorax 07/30-Planned bronchoscopy, Mucomyst Bronchoscopy 08/02 with removal of large bloody mucous plug from the left mainstem. 08/03 - CT thorax - dense consolidations bilateral lower lobes. Mediastinal/ right hilar adenopathy. Small anterior pericardial effusion On furosemide 20 mg IV bid. GI: Elevated BMI Hypoalbuminemia Continue lactulose 30 cc twice a day for bowel regimen Dignishield in place since 07/25, 900 liquid output last 24 hours. RENAL: History renal cell cancer 3 cm left renal mass Status post right nephrectomy May 2017 for renal cell carcinoma Failing autologous renal transplant on chronic immunosuppression Maintain Grant catheter for comfort Discontinuing cyclosporine 100 mg twice a day, increased by nephrology on 07/26 following Cyclosporine level 46. CellCept 500 mg twice a day discontinued to to hx RCC. Cyclosporine level pending 08/03 Intermittent hemodialysis per nephrology discontinued due to withdrawal status Monitor BMP Endo: Diabetes mellitus Hypothyroidism Discontinuing sliding-scale insulin Discontinuing levothyroxine 50 mcg by mouth daily for hypothyroidism. 07/23 TSH - WNL. Heme: Anemia of chronic kidney disease Stable. No active bleeding ID: Healthcare associated pneumonia 07/20 Blood cultures 2- NGTD CMV PCR - negative 07/22 Sputum- neg 07/22 Influenza -neg 07/24 Bronchial wash -neg Was followed by Dr. Price. Completed course of Zosyn and azithromycin and has been watched off antibiotics since 07/29. FEN: Hypokalemia No further blood test to be done MSK: Elevated BMI greater than 50 Charcot foot PT evaluate and treat Access - Utilize peripheral IVs Prophylaxis - GI - famotidine 10 mg per tube twice a day -DVT- SCD/heparin 5000 units subcutaneous every 8 hours. Palliative care has been consulted to define goals of care with . Patient says and likely would not want trach and PEG of poor prognosis from neurological standpoint. He wishes to proceed with extubation/compassionate withdrawal care. Level II follow-up Mahendra Barrios MD Aug 04, 2017 11:09
[2017-08-04] MEDS ORDERED: HYOSCYAMINE 0.5 MG/ML AMP IV PUSH ONE (11:30)
[2017-08-04] MEDS ORDERED: LORazepam 2 MG/ML VIAL IV PUSH ONE ×2 (11:30→12:00)
[2017-08-04] MEDS ORDERED: HYOSCYAMINE 0.5 MG/ML AMP IV PUSH PRN (11:30)
[2017-08-04] MEDS ORDERED: HYDROmorphone HCL PF 2 MG/ML VIAL IV PUSH ONE ×2 (11:30→12:00)
[2017-08-04] MEDS ORDERED: LORazepam 2 MG/ML VIAL IV PUSH PRN ×3 (11:30)
[2017-08-04] MEDS ORDERED: HYDROmorphone HCL PF 2 MG/ML VIAL IV PUSH PRN ×2 (11:30)
[2017-08-04] MEDS ORDERED: HYDROmorphone HCL PF 2 MG/ML VIAL IV PUSH SCH (16:00)
[2017-08-04] MEDS ORDERED: LORazepam 2 MG/ML VIAL IV PUSH SCH (16:00)
--- NOTE | 2017-08-04 23:22 | HHI.DS ---
Summary Note Date of : Aug 04, 2017 Time Of : 1334 Admission Date Jul 22, 2017 at 05:46 Admitting Diagnosis Acute on chronic kidney failure Diagnosis at Time of : (1) Respiratory failure, acute and chronic ICD Code: J96.20 - Acute and chronic respiratory failure, unspecified whether with hypoxia or hypercapnia Diagnosis: Principal (2) Healthcare-associated pneumonia ICD Code: J18.9 - Pneumonia, unspecified organism Diagnosis: Principal (3) Acute kidney injury ICD Code: N17.9 - Acute kidney failure, unspecified Diagnosis: Principal (4) BMI 45.0-49.9, adult ICD Code: Z68.42 - Body mass index (BMI) 45.0-49.9, adult Diagnosis: Principal (5) Toxic metabolic encephalopathy ICD Code: G92 - Toxic encephalopathy Diagnosis: Principal Procedures Right IJ permacath Brief History 56-year-old female with a past medical history of hypertension, hyperlipidemia, depression, morbid obesity, CKD status post renal transplant, renal cell carcinoma status post right nephrectomy, diabetes mellitus and sleep apnea presents to the ER with persistent vomiting despite home medication with Zofran and Phenergan. Patient also complains of generalized abdominal pain, worst in the epigastric region. He was discharged from the hospital on 07/13 where she was treated for acute on chronic kidney injury, generalized weakness and hyperkalemia. She is chronically on 2-3 L nasal cannula at home with a history of asthma. She denies any fever/chills. H&H 7.6/23.8 which is approximately patient's baseline. BUN/creatinine 86/3.89, patient's creatinine 2.66 on 07/13. Chest x-ray showed bibasilar airspace disease with possible bilateral pleural effusions. CT of the abdomen/pelvis with new bibasilar consolidating infiltrate and 3 cm left renal mass which is unchanged from previous. CBC/BMP: 08/04/17 0615 08/04/17 0615 Significant Findings Laboratory Tests Test 08/02/17 07:58 08/02/17 16:00 08/03/17 07:06 08/04/17 06:15 Blood Urea Nitrogen 37 MG/DL (7-18) 37 MG/DL (7-18) 39 MG/DL (7-18) Creatinine 2.19 MG/DL (0.50-1.00) 2.13 MG/DL (0.50-1.00) 2.01 MG/DL (0.50-1.00) Random Glucose 170 MG/DL (74-106) 156 MG/DL (74-106) 167 MG/DL (74-106) Total Protein 6.1 GM/DL (6.4-8.2) 5.5 GM/DL (6.4-8.2) 5.9 GM/DL (6.4-8.2) Albumin 2.6 GM/DL (3.4-5.0) 2.3 GM/DL (3.4-5.0) 2.6 GM/DL (3.4-5.0) Phosphorus Level 5.2 MG/DL (2.5-4.9) Estimat Glomerular Filtration Rate 23 ML/MIN (>89) 24 ML/MIN (>89) 26 ML/MIN (>89) Red Blood Count 3.15 MIL/MM3 (4.00-5.30) 2.78 MIL/MM3 (4.00-5.30) 3.03 MIL/MM3 (4.00-5.30) Hemoglobin 8.8 GM/DL (11.6-15.3) 7.7 GM/DL (11.6-15.3) 8.7 GM/DL (11.6-15.3) Hematocrit 27.5 % (35.0-46.0) 24.3 % (35.0-46.0) 26.9 % (35.0-46.0) Neutrophils (%) (Auto) 72.1 % (16.0-70.0) 76.8 % (16.0-70.0) Monocytes (%) (Auto) 9.3 % (0.0-8.0) 10.5 % (0.0-8.0) Eosinophils (%) (Auto) 4.8 % (0.0-4.0) 4.9 % (0.0-4.0) 4.6 % (0.0-4.0) Lymphocytes # (Auto) 0.8 TH/MM3 (1.0-4.8) 0.9 TH/MM3 (1.0-4.8) 0.8 TH/MM3 (1.0-4.8) Mean Corpuscular Hemoglobin Concent 31.7 % (32.0-36.0) Aspartate Amino Transf (AST/SGOT) 11 U/L (15-37) Potassium Level 2.9 MEQ/L (3.5-5.1) Imaging Last Impressions Chest X-Ray 08/04/17 0600 Signed Impressions: Service Date/Time: Friday, August 04, 2017 04:44 - CONCLUSION: No significant interval change. Michael Edge MD Chest CT 08/03/17 0600 Signed Impressions: Service Date/Time: July 16:14 - CONCLUSION: 1. Bilateral lower lobe airspace consolidation with persistent dense material consistent with aspirated oral contrast. 2. Small bilateral pleural effusions. 3. Ancillary findings including very subtle anterior pericardial effusion and mild right axillary adenopathy. Varghese Baker MD Brain MRI 08/02/17 0000 Signed Impressions: Service Date/Time: Wednesday, August 02, 2017 10:51 - CONCLUSION: 1. Limited examination due to motion artifact on essentially all the images presented. 2. Bilateral cortical atrophy and chronic white matter changes. 3. No definite acute intracranial pathology. 4. Chronic sinus disease. Marco A Abraham MD Abdomen X-Ray 07/30/17 0000 Signed Impressions: Service Date/Time: Sunday, July 30, 2017 13:16 - CONCLUSION: Limited visualization secondary to body habitus otherwise negative Sherif Diaz MD FACR Abdomen/Pelvis CT 07/29/17 0000 Signed Impressions: Service Date/Time: Sunday, July 30, 2017 00:53 - CONCLUSION: No evidence of bowel obstruction To Coates MD Head CT 07/27/17 0000 Signed Impressions: Service Date/Time: Friday, July 28, 2017 04:59 - CONCLUSION: No acute intracranial findings To Coates MD Thoracentesis Ultrasound 07/25/17 0000 Signed Impressions: Service Date/Time: Tuesday, July 25, 2017 12:49 - CONCLUSION: Uncomplicated ultrasound guided thoracentesis. Varghese Baker MD Chest Ultrasound 07/24/17 1600 Signed Impressions: Service Date/Time: Monday, July 24, 2017 17:18 - CONCLUSION: There is a moderate-sized right pleural effusion confirmed by ultrasound Rosalino Morgan MD Upper Extremity Ultrasound 07/23/17 0000 Signed Impressions: Service Date/Time: Sunday, July 23, 2017 07:48 - CONCLUSION: No evidence of deep venous thrombosis within the upper extremities. Florin Michelle MD Catheter Placement X-Ray 07/21/17 0000 Signed Impressions: Service Date/Time: Friday, July 21, 2017 14:47 - CONCLUSION: Uncomplicated PermaCath placement as above. Idris Diaz MD Hospital Course Neuro/Psych: Acute toxic metabolic encephalopathy Depression disorder NOS Altered mental status Currently on lorazepam 1 mg scheduled every 4 hours with 1-2 mg every hour when necessary agitation On hydromorphone 2 mg scheduled every 4 hours with 2-4 mg as needed for pain management 07/27 CT brain - no acute abnormality 07/28 EEG moderate to severe encephalopathy. No epileptic activity. MRI brain 08/02 revealed no acute intracranial findings Neurology following, Dr. Dr. Lerma CV: Hypertension Dyslipidemia NS IVF discontinued 07/24 Compassion withdrawal. Small anterior. Pericardial effusion noted on CT chest Resp: Acute on chronic hypoxemic respiratory failure Chronic home O2 dependency at 3 L at home History of asthma Nasal cannula 2 L for comfort Albuterol/ipratropium aerosols every 6 hours with albuterol aerosols every 2 hours. Dyspnea Hypertonic saline every 6 hours as needed for mucolytic thin secretions Hyoscyamine 0.25 mg as needed for secretions On fluticasone 44 g 2 puffs twice a day and salmeterol 50 g inhaled twice a day at home CXR 07/23 worsening effusions and bibasilar consolidation small right and moderate left pleural effusions 07/23 US guided marking of lungs 770cc on left, 276 on right 07/25 S/P right thoracentesis 990 cc removed 07/30-chest x-ray-left lung collapse- differential possible mucus plugging versus pleural effusion versus pneumothorax 07/30-Planned bronchoscopy, Mucomyst Bronchoscopy 08/02 with removal of large bloody mucous plug from the left mainstem. 08/03 - CT thorax - dense consolidations bilateral lower lobes. Mediastinal/ right hilar adenopathy. Small anterior pericardial effusion On furosemide 20 mg IV bid. GI: Elevated BMI Hypoalbuminemia Continue lactulose 30 cc twice a day for bowel regimen Dignishield in place since 07/25, 900 liquid output last 24 hours. RENAL: History renal cell cancer 3 cm left renal mass Status post right nephrectomy May 2017 for renal cell carcinoma Failing autologous renal transplant on chronic immunosuppression Maintain Grant catheter for comfort Discontinuing cyclosporine 100 mg twice a day, increased by nephrology on 07/26 following Cyclosporine level 46. CellCept 500 mg twice a day discontinued to to hx RCC. Cyclosporine level pending 08/03 Intermittent hemodialysis per nephrology discontinued due to withdrawal status Monitor BMP Endo: Diabetes mellitus Hypothyroidism Discontinuing sliding-scale insulin Discontinuing levothyroxine 50 mcg by mouth daily for hypothyroidism. 07/23 TSH - WNL. Heme: Anemia of chronic kidney disease Stable. No active bleeding ID: Healthcare associated pneumonia 07/20 Blood cultures 2- NGTD CMV PCR - negative 07/22 Sputum- neg 07/22 Influenza -neg 07/24 Bronchial wash -neg Was followed by Dr. Price. Completed course of Zosyn and azithromycin and has been watched off antibiotics since 07/29. FEN: Hypokalemia No further blood test to be done MSK: Elevated BMI greater than 50 Charcot foot PT evaluate and treat Access - Utilize peripheral IVs Prophylaxis - GI - famotidine 10 mg per tube twice a day -DVT- SCD/heparin 5000 units subcutaneous every 8 hours. Palliative care has been consulted to define goals of care with . Patient says and likely would not want trach and PEG of poor prognosis from neurological standpoint. He wishes to proceed with extubation/compassionate withdrawal care. Mahendra Barrios MD Aug 04, 2017 23:22
== END 2017-08-04 13:34 | disposition expired | DRG 166 ==
LOC: NEPE 15:14 → NEDA 17:47 → NEPGCP 19:05 → HIMN 07-21 20:15 → OBSVTOIN 07-22 05:46
PROVIDERS: ADMIT Internal Medicine Critical Care Medicine; ATTEND Internal Medicine Critical Care Medicine
PROC: 0T9B70Z Drainage of Bladder with Drainage Device, Via Natural or Artificial Opening (ICD-10-PCS; 2017-07-20)
PROC: 05HM33Z Insertion of Infusion Device into Right Internal Jugular Vein, Percutaneous Approach (ICD-10-PCS; principal; 2017-07-21)
PROC: 5A1D70Z Performance of Urinary Filtration, Intermittent, Less than 6 Hours Per Day (ICD-10-PCS; 2017-07-21)
PROC: 5A1955Z Respiratory Ventilation, Greater than 96 Consecutive Hours (ICD-10-PCS; 2017-07-22)
PROC: 5A1D70Z Performance of Urinary Filtration, Intermittent, Less than 6 Hours Per Day (ICD-10-PCS; 2017-07-22)
PROC: 30233N1 Transfusion of Nonautologous Red Blood Cells into Peripheral Vein, Percutaneous Approach (ICD-10-PCS; 2017-07-22)
PROC: 0BH17EZ Insertion of Endotracheal Airway into Trachea, Via Natural or Artificial Opening (ICD-10-PCS; 2017-07-22)
PROC: 0B9H8ZX Drainage of Lung Lingula, Via Natural or Artificial Opening Endoscopic, Diagnostic (ICD-10-PCS; 2017-07-24)
PROC: 5A1D70Z Performance of Urinary Filtration, Intermittent, Less than 6 Hours Per Day (ICD-10-PCS; 2017-07-25)
PROC: 0W9B3ZX Drainage of Left Pleural Cavity, Percutaneous Approach, Diagnostic (ICD-10-PCS; 2017-07-25)
PROC: 5A1D70Z Performance of Urinary Filtration, Intermittent, Less than 6 Hours Per Day (ICD-10-PCS; 2017-07-27)
PROC: 5A1D70Z Performance of Urinary Filtration, Intermittent, Less than 6 Hours Per Day (ICD-10-PCS; 2017-07-29)
PROC: 3E1F88Z Irrigation of Respiratory Tract using Irrigating Substance, Via Natural or Artificial Opening Endoscopic (ICD-10-PCS; 2017-08-01)
PROC: 0BJ08ZZ Inspection of Tracheobronchial Tree, Via Natural or Artificial Opening Endoscopic (ICD-10-PCS; 2017-08-01)
DX: J18.9 Pneumonia, unspecified organism (principal); N17.0 Acute kidney failure with tubular necrosis; G92 Toxic encephalopathy; J90 Pleural effusion, not elsewhere classified; J96.21 Acute and chronic respiratory failure with hypoxia; T86.12 Kidney transplant failure; K31.84 Gastroparesis; E11.43 Type 2 diabetes mellitus with diabetic autonomic (poly)neuropathy; N18.6 End stage renal disease; T17.990A Other foreign object in respiratory tract, part unspecified in causing asphyxiation, initial encounter; J96.22 Acute and chronic respiratory failure with hypercapnia; J44.0 Chronic obstructive pulmonary disease with (acute) lower respiratory infection; I31.3 Pericardial effusion (noninflammatory); E66.2 Morbid (severe) obesity with alveolar hypoventilation; Z68.43 Body mass index [BMI] 50.0-59.9, adult; J98.19 Other pulmonary collapse; E11.22 Type 2 diabetes mellitus with diabetic chronic kidney disease; Z99.81 Dependence on supplemental oxygen; E11.610 Type 2 diabetes mellitus with diabetic neuropathic arthropathy; I51.7 Cardiomegaly; Z85.528 Personal history of other malignant neoplasm of kidney; E78.5 Hyperlipidemia, unspecified; Z90.5 Acquired absence of kidney; I12.9 Hypertensive chronic kidney disease with stage 1 through stage 4 chronic kidney disease, or unspecified chronic kidney disease; F32.9 Major depressive disorder, single episode, unspecified; Z79.4 Long term (current) use of insulin; E03.9 Hypothyroidism, unspecified; Y95 Nosocomial condition; D63.1 Anemia in chronic kidney disease; M19.90 Unspecified osteoarthritis, unspecified site; R32 Unspecified urinary incontinence; N28.89 Other specified disorders of kidney and ureter; Y83.0 Surgical operation with transplant of whole organ as the cause of abnormal reaction of the patient, or of later complication, without mention of misadventure at the time of the procedure; Z51.5 Encounter for palliative care; Z99.3 Dependence on wheelchair; E88.09 Other disorders of plasma-protein metabolism, not elsewhere classified; E87.6 Hypokalemia; E83.39 Other disorders of phosphorus metabolism; Z79.82 Long term (current) use of aspirin; Z99.2 Dependence on renal dialysis; R59.0 Localized enlarged lymph nodes
CPT/HCPCS: 31500; 31624; 32555; 36430; 36558; 36600; 70450; 70551; 71010; 71250; 74000; 74176; 76604; 76937; 77001; 80048; 80053; 80069; 80074; 80158; 80202; 81001; 82140; 82150; 82805; 82945; 82948; 83605; 83615; 83690; 83735; 83986; 84100; 84157; 84443; 84478; 84484; 85007; 85025; 85027; 85610; 85730; 86850; 86900; 86901; 86920; 87015; 87040; 87070; 87086; 87102; 87116; 87205; 87206; 87449; 87497; 87641; 87804; 88112; 89051; 90935; 93005; 93970; 94002; 94003; 94640; 94664; 95819; 96361; 96365; 96366; 96367; 96368; 96372; 96374; 96375; 96376; 99152; 99153; C1729; C1750; C1769; G0378; G8987-GP; G8988-GP; J0360; J0456; J0780; J1170; J1580; J1644; J1815; J1940; J1980; J2020; J2060; J2150; J2250; J2270; J2543; J2765; J3010; J3370; J3475; J3480; J7030; J7040; J7050; J7502; J7512; J7515; J7517; J7608; J7613; J7626; P9016; P9047; Q4081